=== PATIENT | female | born 1965 | race Hispanic/Latino ===

== ENCOUNTER 2017-01-27 12:40 | Inpatient (IN) | payer MEDICAID ==
[2017-01-27] MEDS ORDERED: Albuterol-Ipratrop 3 mg / 0.5 (3 ml) UD INH STA ×2 (12:50→16:46)
[2017-01-27] MEDS ORDERED: Albuterol-Ipratrop 3 mg / 0.5 (3 ml) UD ONE (12:59)
[2017-01-27 13:16] LABS: ABG ALLEN TEST YES; ARTERIAL BLOOD GAS HCO3 21.9 mmol/L (21-28); ARTERIAL BLOOD GAS PH 7.38 (7.35-7.45); ARTERIAL BLOOD GAS PO2 70 mm/Hg (80-100)
[2017-01-27 13:30] LABS: BASO # 0.1 K/uL (0.0-0.2); BASO % 0.6 % (0.0-2.0); EOS % 0.1 % (0.0-4.0); HEMATOCRIT 31.2 % (34.0-47.0); LYMPH # 1.7 K/uL (1.0-4.3); LYMPH % 10.3 % (20.0-40.0); MEAN CELL VOLUME 104.9 fl (81.0-99.0); MEAN CORPUSCULAR HEMOGLOBIN 35.3 pg (27.0-31.0); MEAN CORPUSCULAR HGB CONC 33.6 g/dL (33.0-37.0); MEAN PLATELET VOLUME 9.3 fl (7.2-11.7); MONO # 0.9 K/uL (0.0-0.8); MONO % 5.6 % (0.0-10.0); NEUT % 83.4 % (50.0-75.0); NRBC % 0.1 % (0.0-0.0); RED CELL DISTRIBUTION WIDTH 16.1 % (11.5-14.5); WHITE BLOOD COUNT 16.8 K/uL (4.8-10.8)
[2017-01-27 13:41] LABS: CALCIUM 8.3 mg/dL (8.4-10.2)
--- NOTE | 2017-01-27 13:41 | RAD ---
HISTORY: SOB COMPARISON: No prior. FINDINGS: LUNGS: Bilateral infiltrates are appreciated, greater within the right lung. PLEURA: No significant pleural effusion identified, no pneumothorax apparent. CARDIOVASCULAR: Heart is top normal in size. Aorta is normal in outline. Vasculature is limited by the infiltrates and may be mildly congested. . OSSEOUS STRUCTURES: No significant abnormalities. VISUALIZED UPPER ABDOMEN: Normal. OTHER FINDINGS: None. IMPRESSION: Nonspecific bilateral infiltrates greater in the right lung. Mild amount of congestion is not excluded.
[2017-01-27] MEDS ORDERED: Piperacillin/Tazobact 3.375 GM in Sodium Chloride 0.9% 100 ML IVPB STA (14:00)
[2017-01-27 14:01] LABS: ALB/GLOB RATIO 0.7 (1.0-2.1); TOTAL PROTEIN 8.6 G/DL (6.3-8.2)
[2017-01-27] MEDS ORDERED: Sodium Chloride 0.9% 1,000 ML IV STA (14:01)
[2017-01-27 14:02] LABS: BILIRUBIN,TOTAL 6.6 mg/dl (0.2-1.3)
[2017-01-27 14:03] LABS: TROPONIN I 0.04 ng/mL (0.00-0.120)
[2017-01-27] MEDS ORDERED: Vancomycin 1 g Inj ONE (14:36)
--- NOTE | 2017-01-27 14:47 | CT ---
PROCEDURE: CT Chest without contrast HISTORY: abnormal CXR r/o mass smoker COMPARISON: X-ray same day. TECHNIQUE: Contiguous axial images were obtained through the chest without intravenous contrast enhancement. Sagittal and coronal reconstructions were performed. Radiation dose (DLP): Chest mGy-cm. This CT exam was performed using one or more of the following dose reduction techniques: Automated exposure control, adjustment of the mA and/or kV according to patient size, and/or use of iterative reconstruction technique. FINDINGS: LUNGS: There is evidence of moderate infiltrates in the right lung. Infiltrates appear to be greatest in the proximal peribronchial region with there is also some associated density appreciated in the right hilar region. There appear to be a number of right paratracheal and precarinal lymph nodes. An element of right hilar lymphadenopathy is also not excluded without the benefit of intravenous contrast. Note appreciable left hilar adenopathy is clearly noted. Small amount of subcarinal adenopathy is not excluded. There is some other additional areas of reticular change and subtle patchy alveolar density in the upper lobe on the left. Mild linear subsegmental atelectasis is seen in the lingula. MEDIASTINUM: Unremarkable thoracic aorta. No aneurysm. Heart is not significantly enlarged. No pericardial effusion is seen. Pulmonary arteries are mildly prominent which may suggest an element of pulmonary artery hypertension. See above for adenopathy. PLEURA: Small pleural effusion is identified on the right. No left effusion is seen. No pneumothorax is noted. There is some mild areas of interlobular thickening noted without significant pleural thickening. BONES: There is mild chronic compression deformity seen in the mid thoracic spine region. Degenerative changes are noted elsewhere in the thoracic spine and upper lumbar spine. No definite lytic process is seen. UPPER ABDOMEN: There is evidence of mild low-density ascitic fluid overlying the liver. There also appears to be the suggestion of some recannulization of the umbilical venous structures which may suggest some portal hypertension. No focal liver mass is clearly seen. Adrenal glands are normal in size. Visualized spleen is normal in size. Liver is enlarged. OTHER FINDINGS: Visualized esophagus is unremarkable. Thyroid gland is noted to contain a small subcentimeter low-density probable nodule on the right. No further imaging workup would be suggested. IMPRESSION: Multi focal right lung infiltrates greatest in the central perihilar region but also noted peripherally and a few other smaller areas in the subpleural region. Evaluation of the mediastinum is limited due the lack of intravenous contrast. There may be an associated area of right hilar adenopathy. Findings may suggest multi focal infectious infiltrate or other inflammatory process, however malignancy cannot be excluded on this exam. Close clinical surveillance and follow-up are suggested. Smaller patchy infiltrates in the left lung.
--- NOTE | 2017-01-27 15:07 | ED PDOC ---
HPI: SOB/CHF/COPD Time Seen by Provider: 01/27/17 12:45 Chief Complaint (Nursing): Shortness Of Breath Chief Complaint (Provider): respiratory distress History Per: Patient, EMS History/Exam Limitations: clinical condition Onset/Duration Of Symptoms: Days (3), Gradual Current Symptoms Are (Timing): Still Present Initiating Event: Upper Respiratory Illness Quality: Tightness Exacerbating Factor(s): Exertion, Coughing Current Respiratory Medications: See Home Med List Severity: Severe Associated Symptoms: Chest Pain, Productive Cough, Heart Racing, Leg/Calf Pain, Ankle/Leg Swelling, Dizziness, Anxiety Similar Symptoms Previously: ++ Additional Complaint(s): 51yo female hc COPD arrives via ALS in respiratory distress, c/o cough, wheeze and sweeling to face/neck/legs ongoing and worsening for last 2-3 days. History limited due to respiratory distress. Patient required immediate bedside attention. Also admits to frequent alcohol intake for which last drink was yesterday. C/o anxiety and tremors. Past Medical History Reviewed: Historical Data, Nursing Documentation, Vital Signs Vital Signs: Last Vital Signs Temp 98.1 F 01/27/17 12:43 Pulse 120 H 01/27/17 13:34 Resp 22 01/27/17 13:41 BP 109/83 01/27/17 13:34 Pulse Ox 100 01/27/17 15:14 - Medical History PMH: Asthma, Bronchitis, COPD Other PMH: denies taking medications other than nebulizers at home - Surgical History Surgical History: No Surg Hx - Family History Family History: States: Unknown Family Hx - Social History Current smoker - smoking cessation education provided: Yes (occassional, recently attempted to quit) Alcohol: > 2 Drinks/Day - Home Medications Home Medications: Ambulatory Orders Medication Instructions Recorded Albuterol 0.083% [Albuterol 3 ml IH BID 01/27/17 Sulfate 3 Ml] Albuterol HFA [Ventolin HFA 90 1 puff IH BID 01/27/17 mcg/actuation (8 g)] - Allergies Allergies/Adverse Reactions: Allergies Allergy/AdvReac Type Severity Reaction Status Date / Time No Known Allergies Allergy Verified 01/27/17 12:43 Review of Systems ROS Statement: Except As Marked, All Systems Reviewed And Found Negative Constitutional: Positive for: Weakness, Malaise. Negative for: Fever, Chills Eyes: Negative for: Eyelid Inflammation ENT: Negative for: Throat Pain Cardiovascular: Positive for: Chest Pain, Palpitations, Edema Respiratory: Positive for: Cough, Shortness of Breath, SOB with Exertion, Pleuritic Pain, Wheezing. Negative for: Hemoptysis Gastrointestinal: Negative for: Abdominal Pain Genitourinary Female: Negative for: Dysuria Musculoskeletal: Positive for: Back Pain. Negative for: Neck Pain, Arm Pain, Leg Pain Skin: Negative for: Rash, Lesions, Jaundice Neurological: Positive for: Dizziness. Negative for: Weakness, Numbness, Confusion Psych: Positive for: Anxiety. Negative for: Depression Physical Exam - Reviewed Nursing Documentation Reviewed: Yes Vital Signs Reviewed: Yes - Physical Exam Appears: Positive for: In Acute Distress (+ respiratory distress) Head Exam: Positive for: ATRAUMATIC, NORMAL INSPECTION, NORMOCEPHALIC Skin: Positive for: Normal Color, Warm. Negative for: Pallor, Rash, Mottled Eye Exam: Positive for: EOMI, Normal appearance, PERRL ENT: Positive for: Other (facial edema) Neck: Positive for: Normal, Painless ROM Cardiovascular/Chest: Positive for: Edema, Tachycardia Respiratory: Positive for: Decreased Breath Sounds, Wheezing, Respiratory Distress Pulses-Radial (L): 3+/4+ Pulses-Radial (R): 3+/4+ Gastrointestinal/Abdominal: Positive for: Bowel Sounds, Soft. Negative for: Tenderness, Guarding Back: Positive for: Normal Inspection Extremity: Positive for: Pedal Edema, Swelling Neurologic/Psych: Positive for: Alert, Oriented, Other (+tremors/ anxious). Negative for: Motor/Sensory Deficits - Laboratory Results Result Diagrams: 01/27/17 13:21 01/27/17 13:21 - ECG O2 Sat by Pulse Oximetry: 100 Medical Decision Making Medical Decision Making: patient required immediate bedside attention Vapotherm initiated for resp support ABG/ EKG/ CXR/ labs ordered labs reviewed, revealing elevated lactate, WBC, moderate anemia, renal insufficiency, elevated Alk Phos/LFTs, normal trop and BNP CXR reveals b/l infiltrates Renal function marginal to allow for IV contrast, obtain CT chest without contrast eval for malignancy Meets severe sepsis criteria, blood cx and Abx initiated, IVF, repeat lactate ordered 3hr. Accession No. : [id number] Patient Name / ID : SONIA BUSTILLO / [id number] Exam Date : 01/27/2017 14:13:50 ( Approved ) Study Comment : Sex / Age : F / 51Y Creator : Jeevan Muniz MD Dictator : Jeevan Muniz MD Chicken Dresser : Quality Control Assessor : Jeevan Muniz MD Approver2 : Report Date : 01/27/2017 14:46:13 My Comment : PROCEDURE: CT Chest without contrast HISTORY: abnormal CXR r/o mass smoker COMPARISON: X-ray same day. TECHNIQUE: Contiguous axial images were obtained through the chest without intravenous contrast enhancement. Sagittal and coronal reconstructions were performed. Radiation dose (DLP): Chest mGy-cm. This CT exam was performed using one or more of the following dose reduction techniques: Automated exposure control, adjustment of the mA and/or kV according to patient size, and/or use of iterative reconstruction technique. FINDINGS: LUNGS: There is evidence of moderate infiltrates in the right lung. Infiltrates appear to be greatest in the proximal peribronchial region with there is also some associated density appreciated in the right hilar region. There appear to be a number of right paratracheal and precarinal lymph nodes. An element of right hilar lymphadenopathy is also not excluded without the benefit of intravenous contrast. Note appreciable left hilar adenopathy is clearly noted. Small amount of subcarinal adenopathy is not excluded. There is some other additional areas of reticular change and subtle patchy alveolar density in the upper lobe on the left. Mild linear subsegmental atelectasis is seen in the lingula. MEDIASTINUM: Unremarkable thoracic aorta. No aneurysm. Heart is not significantly enlarged. No pericardial effusion is seen. Pulmonary arteries are mildly prominent which may suggest an element of pulmonary artery hypertension. See above for adenopathy. PLEURA: Small pleural effusion is identified on the right. No left effusion is seen. No pneumothorax is noted. There is some mild areas of interlobular thickening noted without significant pleural thickening. BONES: There is mild chronic compression deformity seen in the mid thoracic spine region. Degenerative changes are noted elsewhere in the thoracic spine and upper lumbar spine. No definite lytic process is seen. UPPER ABDOMEN: There is evidence of mild low-density ascitic fluid overlying the liver. There also appears to be the suggestion of some recannulization of the umbilical venous structures which may suggest some portal hypertension. No focal liver mass is clearly seen. Adrenal glands are normal in size. Visualized spleen is normal in size. Liver is enlarged. OTHER FINDINGS: Visualized esophagus is unremarkable. Thyroid gland is noted to contain a small subcentimeter low-density probable nodule on the right. No further imaging workup would be suggested. IMPRESSION: Multi focal right lung infiltrates greatest in the central perihilar region but also noted peripherally and a few other smaller areas in the subpleural region. Evaluation of the mediastinum is limited due the lack of intravenous contrast. There may be an associated area of right hilar adenopathy. Findings may suggest multi focal infectious infiltrate or other inflammatory process, however malignancy cannot be excluded on this exam. Close clinical surveillance and follow-up are suggested. Smaller patchy infiltrates in the left lung. Admit Dr Arora, (PMD near [facility] not at [facility]) Disposition - Clinical Impression Clinical Impression: Bilateral pneumonia, Severe sepsis, Respiratory distress, COPD exacerbation - Patient ED Disposition Is Patient to be Admitted: Yes Counseled Patient/Family Regarding: Studies Performed - Disposition Disposition Time: 14:40 Condition: GUARDED - Pt Status Changed To: Hospital Disposition Of: Inpatient - Admit Certification Admit to Inpatient:: After my assessment, the patient will require hospitalization for at least two midnights. This is because of the severity of symptoms shown, intensity of services needed, and/or the medical risk in this patient being treated as an outpatient. - POA Present On Arrival: Poor Glycemic Control
[2017-01-27 15:45] LABS: POTASSIUM 5.8 MMOL/L (3.6-5.0)
[2017-01-27 15:58] LABS: ABG ALLEN TEST YES; ARTERIAL BLOOD GAS HCO3 20.1 mmol/L (21-28); ARTERIAL BLOOD GAS PH 7.29 (7.35-7.45); ARTERIAL BLOOD GAS PO2 92 mm/Hg (80-100)
--- NOTE | 2017-01-27 16:13 | CP.PCM.HP ---
History of Present Illness - History of Present Illness History of Present Illness: Chief Complaint : facial and leg swelling ,SOB and inability to walk 51 y/o female with COPD , fatty liver, Chronic ETOH abuse ( daily 8 cups of 8 ounce vodka ) , smoker , chronic lower back pain brought to ER for evaluation by EMS for facial and lower extremity swelling , SOB and lower back pain. As per patient she has some baseline SOB with ambulation and has chronic lower back pain . Yesterday she was in her USOH , having some lower back pain for which she took some Motrin and Advil PM. She admits to drinking yesterday as usual (heavily), denies any other drug use or consumption of any sea food . This morning when she woke up she noticed her face and eyes to be swollen and her lower extremities were swollen as well. She could not get out of bed and was having significant back pain . She admits to having increased SOB with cough last couple of days, denies any fever m chills, nausea, vomiting, chest pain . No sputum production. Denies any sick contact or trauma.She was seen at [facility] 1 week ago for SOB. EMS was called and she was brought to ER where she was found to be in respiratory distress,with dyspnea RR 35 O2sat 94 %, slightly hypotensive BP 96/ 65 tachycardic HR 122.She was given 2 Duonebs in the field, 125 mg IV solumedrol in ER , started on IVF and placed on High Flow 20 LPM FIO2 60 % Her ABG showed PO2 70 PCO2 35 pH 7.38 CXR showed bilateral infiltrates worse on the right WBC found to be elevated 16.8 Hgb 10 BUN/Cr 20/1.4 rigoberto 6.6 ASt / ALT 150/26 lactic acid 2.6 ETOH levels 73 Physical exam significant for tremors , increased work of breathing , periorbital, facial and lower extremity edema, her breath smells alcohol. Allergies;NKDA PMH; COPD , fatty liver, Chronic ETOH abuse ( daily 8 cups of 8 ounce vodka ) , smoker , chronic lower back pain , obese Medications; duonebs, prednisone, took Motrin and Advil PM last night Family history ; Mother had breast and lung cancer, father had throat cancer and thyroid problems Surgery ; none Social history ; lives in [place] with sister , single, has 1 child , heavy drinker , drinks vodka daily 8 cups of 8 ounce for more than 40 years, has been smoking since 13 years of age 1 1/2 ppd quit 1 year ago but still smokes one or 2 cigarets sometimes ( last cigarette was 2 days ago) Does not work is on disability, walks with no assist devices , denies drug abuse ( used cocaine more than 30 years ago ) ROS ; 14 point revie wof system negative except above Code status ; Full code Surrogate decision maker : Sister Kat tel [phone] PMD ;Sidney Leonora Present on Admission - Present on Admission Any Indicators Present on Admission: No Review of Systems - Review of Systems All systems: reviewed and no additional remarkable complaints except Past Patient History - Infectious Disease Hx of Infectious Diseases: None - Tetanus Immunizations Tetanus Immunization: Unknown - Past Medical History & Family History Past Medical History?: Yes - Past Social History Smoking Status: Current Some Days Smoker Chewing Tobacco Use: No Cigar Use: No Alcohol: > 2 Drinks/Day Home Situation {Lives}: With Family Domestic Violence: Negative - CARDIAC Hx Cardiac Disorders: No - PULMONARY Hx Asthma: Yes Hx Bronchitis: Yes Hx Chronic Obstructive Pulmonary Disease (COPD): Yes - MUSCULOSKELETAL/RHEUMATOLOGICAL Hx Back Pain: Yes (lower back pain ) - GASTROINTESTINAL Hx Fatty Liver Disease: Yes - PSYCHIATRIC Hx Substance Use: No - SURGICAL HISTORY Hx Surgeries: No - ANESTHESIA Hx Anesthesia: No Meds Allergies/Adverse Reactions: Allergies Allergy/AdvReac Type Severity Reaction Status Date / Time No Known Allergies Allergy Verified 01/27/17 12:43 Physical Exam - Constitutional Appears: Older Than Stated Age Additional comments: Obese lady sitting in bed on high flow with some respiratory distress, noticeable tremors to upper extremities, - Head Exam Additional comments: facial and periorbital edema facial flushing - Eye Exam Eye Exam: EOMI, Periorbital swelling, PERRL Pupil Exam: NORMAL ACCOMODATION Additional comments: left sub conjunctiva bleeding - ENT Exam ENT Exam: Mucous Membranes Dry, Normal Oropharynx - Neck Exam Neck exam: Positive for: Full Rom Additional comments: very short neck - Respiratory Exam Respiratory Exam: Accessory Muscle Use, Prolonged Expiratory Phase, Rhonchi, Respiratory Distress. absent: Wheezes - Cardiovascular Exam Cardiovascular Exam: Tachycardia, +S1, +S2. absent: JVD - GI/Abdominal Exam GI & Abdominal Exam: Normal Bowel Sounds, Soft. absent: Distended, Guarding, Rebound, Tenderness - Rectal Exam Rectal Exam: Deferred - Extremities Exam Extremities exam: Positive for: pedal edema (2+ bilaterallly, RLE richard erythema ), pedal pulses present. Negative for: calf tenderness, tenderness - Back Exam Back exam: NORMAL INSPECTION. absent: paraspinal tenderness Additional comments: bruises noted to right upper back left lower back under left upper arm - Neurological Exam Neurological exam: Alert, CN II-XII Intact, Oriented x3, Reflexes Normal - Psychiatric Exam Psychiatric exam: Normal Affect, Normal Mood - Skin Skin Exam: Dry, Pallor, Warm Results - Vital Signs Recent Vital Signs: Last Vital Signs Temp 98.1 F 01/27/17 12:43 Pulse 120 H 01/27/17 13:34 Resp 19 01/27/17 15:45 BP 109/83 01/27/17 13:34 Pulse Ox 100 01/27/17 15:14 - Labs Result Diagrams: 01/27/17 13:21 01/27/17 13:21 Labs: Laboratory Results - last 24 hr 01/27/17 01/27/17 01/27/17 13:04 13:21 13:21 WBC 16.8 H RBC 2.98 L Hgb 10.5 L Hct 31.2 L MCV 104.9 H MCH 35.3 H MCHC 33.6 RDW 16.1 H Plt Count 207 MPV 9.3 Neut % (Auto) 83.4 H Lymph % (Auto) 10.3 L Love % (Auto) 5.6 Eos % (Auto) 0.1 Baso % (Auto) 0.6 Neut # 14.0 H Lymph # 1.7 Love # 0.9 H Eos # 0.0 Baso # 0.1 pCO2 35 pO2 70 L HCO3 21.9 ABG pH 7.38 ABG Total CO2 21.8 L ABG O2 Saturation 99.0 H ABG Base Excess -3.8 L Dick Test Yes ABG Potassium 4.7 A-a O2 Difference 86.0 Sodium 133.0 138 Chloride 104.0 104 Glucose 120 H Lactate 2.6 H FiO2 28.0 Blood Gas Comments Crit Value Called To Crit Value Called By Crit Value Read Back Blood Gas Notified Time Potassium 5.8 H Carbon Dioxide 20 L Anion Gap 20 BUN 20 H Creatinine 1.4 H Est GFR ( Amer) 48 Est GFR (Non-Af Amer) 40 Random Glucose 111 H Calcium 8.3 L Total Bilirubin 6.6 H AST 150 H ALT 26 Alkaline Phosphatase 253 H Troponin I 0.0400 NT-Pro-B Natriuret Pep 806 Total Protein 8.6 H Albumin 3.6 Globulin 4.9 H Albumin/Globulin Ratio 0.7 L Arterial Blood Potassium 4.7 Alcohol, Quantitative Influenza Typ A,B (EIA) 01/27/17 01/27/17 01/27/17 13:21 14:54 15:45 WBC RBC Hgb Hct MCV MCH MCHC RDW Plt Count MPV Neut % (Auto) Lymph % (Auto) Love % (Auto) Eos % (Auto) Baso % (Auto) Neut # Lymph # Love # Eos # Baso # pCO2 42 pO2 92 HCO3 20.1 L ABG pH 7.29 L ABG Total CO2 21.5 L ABG O2 Saturation 98.5 H ABG Base Excess -6.1 L Dick Test Yes ABG Potassium 4.5 A-a O2 Difference 283.0 Sodium 137.0 Chloride 106.0 Glucose 126 H Lactate 2.5 H FiO2 60.0 Blood Gas Comments Lactate 2.5 Crit Value Called To keena Jackson Crit Value Called By 203 Crit Value Read Back Y Blood Gas Notified Time 1557 Potassium Carbon Dioxide Anion Gap BUN Creatinine Est GFR ( Amer) Est GFR (Non-Af Amer) Random Glucose Calcium Total Bilirubin AST ALT Alkaline Phosphatase Troponin I NT-Pro-B Natriuret Pep Total Protein Albumin Globulin Albumin/Globulin Ratio Arterial Blood Potassium 4.5 Alcohol, Quantitative 73 H Influenza Typ A,B (EIA) Negative for flu a/b - Imaging and Cardiology Chest x-ray Additional comment: bilateral multiple infiltrates more on the right CT scan - chest Additional comment: Multi focal right lung infiltrates greatest in the central perihilar region but also noted peripherally and a few other smaller areas in the subpleural region. Evaluation of the mediastinum is limited due the lack of intravenous contrast. There may be an associated area of right hilar adenopathy. Findings may suggest multi focal infectious infiltrate or other inflammatory process, however malignancy cannot be excluded on this exam. Close clinical surveillance and follow-up are suggested. Smaller patchy infiltrates in the left lung. Assessment & Plan - Assessment and Plan (Free Text) Assessment: 51 y/o female with COPD , fatty liver, Chronic ETOH abuse ( daily 8 cups of 8 ounce vodka ) , smoker , chronic lower back pain brought to ER for evaluation by EMS for facial and lower extremity swelling , SOB and lower back pain. As per patient she has some baseline SOB with ambulation and has chronic lower back pain . Yesterday she was in her USOH , having some lower back pain for which she took some Motrin and Advil PM. She admits to drinking yesterday as usual (heavily), denies any other drug use or consumption of any sea food . This morning when she woke up she noticed her face and eyes to be swollen and her lower extremities were swollen as well. She could not get out of bed and was having significant back pain . She admits to having increased SOB with cough last couple of days, denies any fever ,chills, nausea, vomiting, chest pain . No sputum production. Denies any sick contact or trauma.She was seen at [facility] 1 week ago for SOB and was given steroids and duonebs. EMS was called and she was brought to ER where she was found to be in respiratory distress,with dyspnea RR 35 O2sat 94 %, slightly hypotensive BP 96/ 65 tachycardic HR 122.She was given 2 Duonebs in the field, 125 mg IV solumedrol in ER , started on IVF and placed on High Flow 20 LPM FIO2 60 % Her ABG showed PO2 70 PCO2 35 pH 7.38 CXR showed bilateral infiltrates worse on the right WBC found to be elevated 16.8 Hgb 10 BUN/Cr 20/1.4 rigoberto 6.6 ASt / ALT 150/26 lactic acid 2.6 ETOH levels 73 Physical exam significant for tremors , increased work of breathing , periorbital, facial and lower extremity edema, her breath smells alcohol 1. Severe Sepsis Most likely secondary to multifocal pneumonia patient was hypotensive,tachycardic,hypoxemic with WBC 16.8 and CXR showing bilateral infiltrates, lactate 2.6 Send blood , urine, sputum cultures placed on High flow O2 20 LPM FIO2 60 % Started IVF Started Vanco, Zosyn and Zithromax ID consult Repeat lactic acid 2.Acute hypoxemic respiratory failure Treated with Duoneb x2 treatment and Solumedrol IV placed on High Flow O2 vi aNC 20 LPM FIO2 60 % CT chest showed multifocal infiltrates . Unable to perform CTA due to renal function Will hydrate patient and if renal function improves with perform CTA if respiratory status shows no improvement Pulmonary consulted Continue IV antibiotics and Duonebs Will admit to ICU for close monitoring Discussed possibility of intubation with patient and sister if she can not tolerate high flow and they agree 3. Multifocal Pneumonia ID and pulmonary consulted Started Vanco, Zosuyn and Zithromax Follow up cultures patient is a long time smoker so will need to follow up resolution of infiltrates to rule out any underlying malignancy 4. Facial and lower extremity edema unclear etiology of facial edema -- rule out angioedema vs myxedema Check TSH stat Given Solumedrol 125 mg IV Continue IVF , Solumedrol 40 mg IV Q8, PPI Started benadryl 5. ETOH abuse / Impending DT-s patient with tremors and tachycardic ETOH levels 73 ( last drink yesterday ) Start Thiamine, Folic acid and MVI on IVF stat Continue hydration Start Ativan PRN , Librium 50 mg PO q6 hours Seizure precautions/ withdrawal precautions 6. SUNDAR BUN/ Cr 20/1.4 no prior records and unknown renal function Start IVF repeat BMP in AM 7.COPD Duonebs , high flow pulmonary consulted counselled on smoking 8. Alcoholic liver Bill 6.[address] chest showed hepatomegaly , fatty infiltration , some ascitic fluid and umbilical vein recannulization significant for portal hypertension Continue monitoring check ammonia send direct bilirubin 9. Chronic Lower back pain Ct chest also showing mild chronic compression fracture in mid thoracic spine Pain management PT eval 10.Anemia unclear etiology send anemia work up 11. Hyperkalemia Blood sample hymolyzed repeat BMP 12. Smoker will offer nicotine patch 13. DVT prophylaxis GI prophylaxis Lovenox ( renal dose ) , SCD PPI
[2017-01-27] MEDS ORDERED: Sodium Chloride 0.9% 1,000 ML IV SCH (16:30)
[2017-01-27] MEDS ORDERED: Albuterol 0.083% Inhal Sol (2.5 mg/3 mL) UD IH SCH (16:30)
[2017-01-27] MEDS ORDERED: MULTIVITAMIN IV SCH ×3 (16:43→17:15)
[2017-01-27] MEDS ORDERED: SODIUM CHLORIDE IV SCH (16:43)
[2017-01-27] MEDS ORDERED: Azithromycin 500 MG in Sodium Chloride 0.9% 250 ML IVPB STA (16:43)
[2017-01-27] MEDS ORDERED: THIAMINE IV SCH ×3 (16:43→17:15)
[2017-01-27] MEDS ORDERED: Calcium Gluconate 4.65 mEq/10 ml Inj IV ONE (16:46)
[2017-01-27] MEDS ORDERED: Dextrose 50% SYRINGE Inj (50 ml) IVP ONE (16:46)
[2017-01-27] MEDS ORDERED: Sod Polystyrene Sulf 15 gm/60 ml Susp PO ONE (16:46)
--- NOTE | 2017-01-27 16:58 | CP.CCUPN ---
CCU Subjective - Physician Review Subjective (Free Text): ICU admission requested by ER MD; patient is a fair historian- 51F admitted for SOB and wheezing x 1 day, c/o facial edema and swollen legs, denies any recent new medications, nor atypical food ingestion, nor h/o of unusual allergic reactions, recent travel, nor any exposure to sick contacts. Legs were much swollen over the past several days to one week. Facial edema now involving bilateral periorbital areas. Denies any CP, fevers, chills , sweats; has orthopnea, +BURNETT and intermittent cough with whitish phlegm. Hypotensive, tachycardic and tachypneic on presentation; placed on HFNC at 60% and 20 LPM with 100% SPo2. She states she was recently hospitalized at [facility], but unclear as to when she was discharged or he nature of the hospitalization. She is currently exhibiting increase in psychomotor activity involving the arms. Other vitals and I/O's reviewed. PMH: past smoker and daily Vodka drinker. ALLERGIES; NKDA Home meds: albuterol inh ROS: No other pertinent negs or positives on + system review. PMSFH: All Nursing and physician documentation reviewed to date; no new pertinent info noted relevant to current medical problems. CXR/ CT Chest: bilateral, but more right sided centrally located dense infiltrates (my interp). IMPRESSION / MAJOR PROBLEMS NOW: 1. Acute Hypoxemic Resp Failure 2. Bilateral Pneumonia 3. Azotemia / Dehydration, with Hyperkalemia; r/o CKD 4. Chronic ETOH Intoxication with early Delirium Tremans, and AKA. 5. Anemia, with mixed Indices; unclear acute vs. chronic disease type 6. Hyperbilirubinemia with AST and ALKPhos elevation PLAN: 1. ICU observation. Does not need immediate or urgent airway control, nor assisted breathing or ventilatory support. Continue HFNC for now. 2. If Librium is started, watch for excessive sedation and resp status. 3. Give empiric steroids, Duoneb inh therapy; H1 and H2 antagonists IV for now. 4. Empiric abx coverage, and atypical organism coverage. ?? Chronic Aspiration pneumonia?? 5. BNP normal on admission, but would get ECHO to r/o ETOH-Cardiomyopathy, check TFTs. 6. Check Coags. Check GGT, consider Liver/GB/Pancreas US. 7. Thiamine / Folate supplements, hydrate with NSS. Repeat serial Lactates, unclear if elevated due to Sepsis vs AKA. 8. Consider Venous Doppler of Legs, r/o DVT. 9. Obtain old medical records from previous hospitalization for medical database information. CCU Objective - Vital Signs / Intake & Output Vital Signs (Last 4 hours): Vital Signs Temp Pulse Resp BP Pulse Ox 01/27/17 16:32 98.3 F 108 H 16 132/78 01/27/17 16:02 98.3 F 108 H 16 132/78 98 01/27/17 15:45 19 01/27/17 15:14 100 01/27/17 13:41 22 01/27/17 13:34 120 H 26 H 109/83 100 01/27/17 13:23 21 100 Intake and Output (Last 8hrs): Intake & Output 01/27/17 01/27/17 01/27/17 06:59 14:59 22:59 Weight 211 lb - Physical Exam Head: Positive for: Atraumatic, Normocephalic Pupils: Positive for: PERRL Extroacular Muscles: Positive for: EOMI. Negative for: Gaze Palsy Conjunctiva: Positive for: Icteric Mouth: Positive for: Moist Mucous Membranes Pharnyx: Positive for: Normal Respiratory/Chest: Positive for: Wheezes, Decreased Breath Sounds. Negative for : Accessory Muscle Use Cardiovascular: Positive for: Regular Rate and Rhythm, Tachycardic. Negative for: Murmurs, Rub Abdomen: Positive for: Normal Bowel Sounds, Other (obese). Negative for: Tenderness, Distention, Mass/Organomegaly Lower Extremity: Positive for: Edema, NORMAL PULSES, Other (mild skin erythema and redness with increased warmth bilaterally). Negative for: CALF TENDERNESS, Cyanosis Neurological: Positive for: GCS=15, Motor Func Grossly Intact, Normal Sensory Function Skin: Positive for: Warm, Dry, Other (3 ecchymotic areas along Right lateral back area). Negative for: Rashes Psychiatric: Positive for: Alert, Oriented x 3, Agitated - Medications Active Medications: Active Medications Generic Name Dose Route Start Last Admin Trade Name Freq PRN Reason Stop Dose Admin Acetaminophen 650 mg 01/27/17 16:27 Tylenol 325mg Tab PO Q6H PRN Pain, Mild (1-3) Acetaminophen 650 mg 11/23/17 16:27 Tylenol 325mg Tab PO Q6H PRN Fever >100.4 F Albuterol Sulfate 2.5 mg 01/27/17 16:30 Albuterol 0.083% Inhal Jackie (2.5 Mg/3 Ml) Ud IH RQ6 [facility] Chlordiazepoxide 50 mg 01/27/17 22:00 Librium PO Q6 [facility] Diphenhydramine HCl 50 mg 01/27/17 22:00 Benadryl IVP 01/29/17 22:01 Q6 [facility] Docusate Sodium 100 mg 01/27/17 16:27 Colace PO BID PRN Constipation Enoxaparin Sodium 30 mg 01/28/17 09:00 Lovenox SC DAILY [facility] Protocol Famotidine 20 mg 01/27/17 21:00 Pepcid IVP Q12 [facility] Folic Acid 1 mg 01/28/17 09:00 Folic Acid PO DAILY [facility] Vancomycin HCl 1 gm/ Sodium 250 mls @ 250 mls/hr 01/27/17 14:15 01/27/17 14: 46 Chloride IVPB 250 mls/hr ONCE [facility] Administration Protocol Azithromycin 500 mg/ Sodium 250 mls @ 250 mls/hr 01/27/17 16:43 Chloride IVPB 01/27/17 17:42 STAT STA Protocol Azithromycin 500 mg/ Sodium 250 mls @ 250 mls/hr 01/28/17 09:00 Chloride IVPB DAILY [facility] Protocol Piperacillin Sod/Tazobactam 100 mls @ 100 mls/hr 01/27/17 17:00 Sod 3.375 gm/ Sodium Chloride IVPB Q8 [facility] Protocol Vancomycin HCl 1 gm/ Sodium 250 mls @ 166.667 mls/hr 01/28/17 09:00 Chloride IVPB DAILY [facility] Protocol Thiamine HCl 100 mg/ 1,006.2 mls @ 100.001 mls/hr 01/27/17 17:00 Multivitamins/Vitamin C 5 ml/ IV Folic Acid 1 mg/ Sodium .Q10H4M [facility] Chloride Insulin Human Regular 10 units 01/27/17 17:00 Humulin R IV ACB [facility] Lorazepam 1 mg 01/27/17 17:00 Ativan PO TID [facility] Methylprednisolone 40 mg 01/27/17 16:45 Solu-Medrol IVP Q8H [facility] Multivitamins/Minerals 1 tab 01/28/17 09:00 Therapeutic-M Tab PO DAILY [facility] Ondansetron HCl 4 mg 01/27/17 16:27 Zofran Inj IVP Q6H PRN Nausea/Vomiting Thiamine HCl 100 mg 01/28/17 09:00 Vitamin B1 Tab PO DAILY [facility] - Patient Studies Lab Studies: Lab Studies 01/27/17 01/27/17 01/27/17 Range/Units 15:45 14:54 13:21 WBC (4.8-10.8) K/uL RBC (3.80-5.20) Mil/uL Hgb (12.0-16.0) g/dL Hct (34.0-47.0) % MCV (81.0-99.0) fl MCH (27.0-31.0) pg MCHC (33.0-37.0) g/dL RDW (11.5-14.5) % Plt Count (130-400) K/uL MPV (7.2-11.7) fl Neut % (Auto) (50.0-75.0) % Lymph % (Auto) (20.0-40.0) % Kleberg % (Auto) (0.0-10.0) % Eos % (Auto) (0.0-4.0) % Baso % (Auto) (0.0-2.0) % Neut # (1.8-7.0) K/uL Lymph # (1.0-4.3) K/uL Kleberg # (0.0-0.8) K/uL Eos # (0.0-0.7) K/uL Baso # (0.0-0.2) K/uL pCO2 42 (35-45) mm/Hg pO2 92 (80-100) mm/Hg HCO3 20.1 L (21-28) mmol/L ABG pH 7.29 L (7.35-7.45) ABG Total CO2 21.5 L (22-28) mmol/L ABG O2 Saturation 98.5 H (95-98) % ABG Base Excess -6.1 L (-2.0-3.0) mmol/L Dick Test Yes ABG Potassium 4.5 (3.6-5.2) mmol/L A-a O2 Difference 283.0 mm/Hg Sodium 137.0 (132-148) mmol/L Chloride 106.0 (98-107) mmol/L Glucose 126 H (65-105) mg/dL Lactate 2.5 H (0.7-2.1) mmol/L FiO2 60.0 % Blood Gas Comments Lactate 2.5 Crit Value Called To keena Jackson Crit Value Called By 203 Crit Value Read Back Y Blood Gas Notified Time 1557 Potassium (3.6-5.0) MMOL/L Carbon Dioxide (22-30) mmol/L Anion Gap (10-20) BUN (7-17) mg/dl Creatinine (0.7-1.2) mg/dl Est GFR ( Amer) Est GFR (Non-Af Amer) Random Glucose (65-105) mg/dL Calcium (8.4-10.2) mg/dL Total Bilirubin (0.2-1.3) mg/dl AST (14-36) U/L ALT (9-52) U/L Alkaline Phosphatase (38-126) U/L Troponin I (0.00-0.120) ng/mL NT-Pro-B Natriuret Pep (0-900) pg/ml Total Protein (6.3-8.2) G/DL Albumin (3.5-5.0) g/dL Globulin (2.2-3.9) gm/dL Albumin/Globulin Ratio (1.0-2.1) Arterial Blood Potassium 4.5 (3.6-5.2) mmol/L Alcohol, Quantitative 73 H (0-10) mg/dl Influenza Typ A,B (EIA) Negative for flu a/b (NEGATIVE) 01/27/17 01/27/17 01/27/17 Range/Units 13:21 13:21 13:04 WBC 16.8 H (4.8-10.8) K/uL RBC 2.98 L (3.80-5.20) Mil/uL Hgb 10.5 L (12.0-16.0) g/dL Hct 31.2 L (34.0-47.0) % MCV 104.9 H (81.0-99.0) fl MCH 35.3 H (27.0-31.0) pg MCHC 33.6 (33.0-37.0) g/dL RDW 16.1 H (11.5-14.5) % Plt Count 207 (130-400) K/uL MPV 9.3 (7.2-11.7) fl Neut % (Auto) 83.4 H (50.0-75.0) % Lymph % (Auto) 10.3 L (20.0-40.0) % Kleberg % (Auto) 5.6 (0.0-10.0) % Eos % (Auto) 0.1 (0.0-4.0) % Baso % (Auto) 0.6 (0.0-2.0) % Neut # 14.0 H (1.8-7.0) K/uL Lymph # 1.7 (1.0-4.3) K/uL Kleberg # 0.9 H (0.0-0.8) K/uL Eos # 0.0 (0.0-0.7) K/uL Baso # 0.1 (0.0-0.2) K/uL pCO2 35 (35-45) mm/Hg pO2 70 L (80-100) mm/Hg HCO3 21.9 (21-28) mmol/L ABG pH 7.38 (7.35-7.45) ABG Total CO2 21.8 L (22-28) mmol/L ABG O2 Saturation 99.0 H (95-98) % ABG Base Excess -3.8 L (-2.0-3.0) mmol/L Dick Test Yes ABG Potassium 4.7 (3.6-5.2) mmol/L A-a O2 Difference 86.0 mm/Hg Sodium 138 133.0 (132-148) mmol/L Chloride 104 104.0 (98-107) mmol/L Glucose 120 H (65-105) mg/dL Lactate 2.6 H (0.7-2.1) mmol/L FiO2 28.0 % Blood Gas Comments Crit Value Called To Crit Value Called By Crit Value Read Back Blood Gas Notified Time Potassium 5.8 H (3.6-5.0) MMOL/L Carbon Dioxide 20 L (22-30) mmol/L Anion Gap 20 (10-20) BUN 20 H (7-17) mg/dl Creatinine 1.4 H (0.7-1.2) mg/dl Est GFR ( Amer) 48 Est GFR (Non-Af Amer) 40 Random Glucose 111 H (65-105) mg/dL Calcium 8.3 L (8.4-10.2) mg/dL Total Bilirubin 6.6 H (0.2-1.3) mg/dl AST 150 H (14-36) U/L ALT 26 (9-52) U/L Alkaline Phosphatase 253 H (38-126) U/L Troponin I 0.0400 (0.00-0.120) ng/mL NT-Pro-B Natriuret Pep 806 (0-900) pg/ml Total Protein 8.6 H (6.3-8.2) G/DL Albumin 3.6 (3.5-5.0) g/dL Globulin 4.9 H (2.2-3.9) gm/dL Albumin/Globulin Ratio 0.7 L (1.0-2.1) Arterial Blood Potassium 4.7 (3.6-5.2) mmol/L Alcohol, Quantitative (0-10) mg/dl Influenza Typ A,B (EIA) (NEGATIVE) Laboratory Results - last 24 hr 01/27/17 01/27/17 01/27/17 13:04 13:21 13:21 WBC 16.8 H RBC 2.98 L Hgb 10.5 L Hct 31.2 L MCV 104.9 H MCH 35.3 H MCHC 33.6 RDW 16.1 H Plt Count 207 MPV 9.3 Neut % (Auto) 83.4 H Lymph % (Auto) 10.3 L Kleberg % (Auto) 5.6 Eos % (Auto) 0.1 Baso % (Auto) 0.6 Neut # 14.0 H Lymph # 1.7 Kleberg # 0.9 H Eos # 0.0 Baso # 0.1 pCO2 35 pO2 70 L HCO3 21.9 ABG pH 7.38 ABG Total CO2 21.8 L ABG O2 Saturation 99.0 H ABG Base Excess -3.8 L Dick Test Yes ABG Potassium 4.7 A-a O2 Difference 86.0 Sodium 133.0 138 Chloride 104.0 104 Glucose 120 H Lactate 2.6 H FiO2 28.0 Blood Gas Comments Crit Value Called To Crit Value Called By Crit Value Read Back Blood Gas Notified Time Potassium 5.8 H Carbon Dioxide 20 L Anion Gap 20 BUN 20 H Creatinine 1.4 H Est GFR ( Amer) 48 Est GFR (Non-Af Amer) 40 Random Glucose 111 H Calcium 8.3 L Total Bilirubin 6.6 H AST 150 H ALT 26 Alkaline Phosphatase 253 H Troponin I 0.0400 NT-Pro-B Natriuret Pep 806 Total Protein 8.6 H Albumin 3.6 Globulin 4.9 H Albumin/Globulin Ratio 0.7 L Arterial Blood Potassium 4.7 Alcohol, Quantitative Influenza Typ A,B (EIA) 01/27/17 01/27/17 01/27/17 13:21 14:54 15:45 WBC RBC Hgb Hct MCV MCH MCHC RDW Plt Count MPV Neut % (Auto) Lymph % (Auto) Kleberg % (Auto) Eos % (Auto) Baso % (Auto) Neut # Lymph # Kleberg # Eos # Baso # pCO2 42 pO2 92 HCO3 20.1 L ABG pH 7.29 L ABG Total CO2 21.5 L ABG O2 Saturation 98.5 H ABG Base Excess -6.1 L Dick Test Yes ABG Potassium 4.5 A-a O2 Difference 283.0 Sodium 137.0 Chloride 106.0 Glucose 126 H Lactate 2.5 H FiO2 60.0 Blood Gas Comments Lactate 2.5 Crit Value Called To keena Jackson Crit Value Called By 203 Crit Value Read Back Y Blood Gas Notified Time 1557 Potassium Carbon Dioxide Anion Gap BUN Creatinine Est GFR ( Amer) Est GFR (Non-Af Amer) Random Glucose Calcium Total Bilirubin AST ALT Alkaline Phosphatase Troponin I NT-Pro-B Natriuret Pep Total Protein Albumin Globulin Albumin/Globulin Ratio Arterial Blood Potassium 4.5 Alcohol, Quantitative 73 H Influenza Typ A,B (EIA) Negative for flu a/b Radiology Interpretations (Free Text): See above Review of Systems - Review of Systems All systems: reviewed and no additional remarkable complaints except (as above) Critical Care Progress Note - Nutrition Nutrition: Nutrition Category Date Time Status Regular Diet [DIET] Diets 01/27/17 Lunch Active
[2017-01-27] MEDS ORDERED: FOLIC ACID IV SCH ×2 (17:00→17:15)
[2017-01-27] MEDS ORDERED: methylPREDNISolone 40 MG in Sodium Chloride 0.9% 50 ML IVPB SCH (17:00)
[2017-01-27] MEDS ORDERED: SODIUM CHLORIDE 0.9% IV SCH ×2 (17:00→17:15)
[2017-01-27] MEDS ORDERED: Insulin Regular 100 units/ml IV SCH (17:00)
[2017-01-27] MEDS ORDERED: MULTIVITAMIN IV ONE (17:15)
[2017-01-27] MEDS ORDERED: SODIUM CHLORIDE 0.9% IV ONE (17:15)
[2017-01-27] MEDS ORDERED: FOLIC ACID IV ONE (17:15)
[2017-01-27] MEDS ORDERED: THIAMINE IV ONE (17:15)
[2017-01-27] MEDS: MethylPREDNISolone 40 mg Vial IVP SCH (17:23)
[2017-01-27] MEDS: Piperacillin/Tazobact 3.375 GM in Sodium Chloride 0.9% 100 ML IVPB SCH (17:37)
[2017-01-27 17:53] LABS: THYROID STIMULATING HORMONE 0.73 mIU/ML (0.46-4.68)
[2017-01-27] MEDS ORDERED: Sodium Chloride 3% for Inhalation 4 ML VIAL.NEB IH PRN (18:00)
[2017-01-27 19:17] LABS: ALB/GLOB RATIO 0.7 (1.0-2.1); BILIRUBIN,TOTAL 5.9 mg/dl (0.2-1.3); CALCIUM 8.1 mg/dL (8.4-10.2); MAGNESIUM 1.3 MG/DL (1.6-2.3); PHOSPHOROUS 5.4 mg/dl (2.5-4.5); POTASSIUM 4.7 MMOL/L (3.6-5.0); TOTAL PROTEIN 7.8 G/DL (6.3-8.2)
[2017-01-27] MEDS: Albuterol-Ipratrop 3 mg / 0.5 (3 ml) UD INH SCH ×2 (19:25→23:20)
[2017-01-27] MEDS ORDERED: DiphenhydrAMINE 50 mg/ml Inj IVP SCH (22:00)
[2017-01-28] MEDS: DiphenhydrAMINE 50 mg/ml Inj IVP SCH ×3 (00:32→17:18)
[2017-01-28] MEDS: MethylPREDNISolone 40 mg Vial IVP SCH ×3 (00:32→17:15)
[2017-01-28] MEDS: Piperacillin/Tazobact 3.375 GM in Sodium Chloride 0.9% 100 ML IVPB SCH ×3 (02:45→17:23)
[2017-01-28] MEDS: Albuterol-Ipratrop 3 mg / 0.5 (3 ml) UD INH SCH ×6 (03:19→23:07)
[2017-01-28 05:20] LABS: ABG ALLEN TEST YES; ARTERIAL BLOOD FLOW 20; ARTERIAL BLOOD GAS HCO3 22.1 mmol/L (21-28); ARTERIAL BLOOD GAS MODE HFOV; ARTERIAL BLOOD GAS O2 CAPACITY 13.3 mL/dL (16-24); ARTERIAL BLOOD GAS O2 CONTENT 13.3 ML/dL (15-23); ARTERIAL BLOOD GAS PH 7.36 (7.35-7.45); ARTERIAL BLOOD GAS PO2 90 mm/Hg (80-100); ARTERIAL BLOOD HGB O2 SAT 96.4 % (95.0-98.0); CARBOXYHEMOGLOBIN 2.4 % (0.5-1.5); HHB 0.3 % (0.0-5.0)
[2017-01-28 05:44] LABS: HEMATOCRIT 30.1 % (34.0-47.0); MEAN CELL VOLUME 105.9 fl (81.0-99.0); MEAN CORPUSCULAR HEMOGLOBIN 34.8 pg (27.0-31.0); MEAN CORPUSCULAR HGB CONC 32.9 g/dL (33.0-37.0); WHITE BLOOD COUNT 12.3 K/uL (4.8-10.8)
[2017-01-28 05:55] LABS: IRON 69 ug/dL (37-170)
[2017-01-28] MEDS: Sodium Chloride 0.9% 1,000 ML IV SCH ×3 (07:00→17:18)
--- NOTE | 2017-01-28 08:38 | CARD ---
APPROVED REPORT EKG Measurement Heart [id number] <Conclusion> Sinus tachycardia with premature atrial complexes Anterior infarct, age undetermined Abnormal ECG
--- NOTE | 2017-01-28 08:39 | CARD ---
APPROVED REPORT EKG Measurement Heart [id number] <Conclusion> Sinus tachycardia Low voltage QRS Cannot rule out Anterior infarct, age undetermined Abnormal ECG
[2017-01-28 09:50] LABS: ALB/GLOB RATIO 0.7 (1.0-2.1); ALKALINE PHOSPHATASE 208 U/L (38-126); ALT/SGPT 30 U/L (9-52); AST/SGOT 91 U/L (14-36); BILIRUBIN,TOTAL 4.5 mg/dl (0.2-1.3); BLOOD UREA NITROGEN 22 mg/dl (7-17); CALCIUM 7.9 mg/dL (8.4-10.2); CARBON DIOXIDE 22 mmol/L (22-30); CHLORIDE 107 mmol/L (98-107); GFR AFRICAN-AMERICAN > 60; GLUCOSE,RANDOM 140 mg/dL (65-105); POTASSIUM 4.4 MMOL/L (3.6-5.0); SODIUM 141 mmol/l (132-148); TOTAL PROTEIN 7.7 G/DL (6.3-8.2)
[2017-01-28] MEDS: Enoxaparin 30 mg Syringe SC SCH (09:51)
[2017-01-28] MEDS: Multivitamin With Minerals Tab PO SCH (09:52)
[2017-01-28] MEDS: Azithromycin 500 MG in Sodium Chloride 0.9% 250 ML IVPB SCH (09:53)
--- NOTE | 2017-01-28 10:41 | CP.PCM.PN ---
Subjective - Date & Time of Evaluation Date of Evaluation: 01/28/17 Time of Evaluation: 09:15 - Subjective Subjective: Pt is alert, oriented x 3 sl tremulous No fever denies CP mild SOB + wheezing sl cough no abd pain Objective - Vital Signs/Intake and Output Vital Signs (last 24 hours): Temp Pulse Resp BP Pulse Ox 98.5 F 96 H 23 111/75 100 01/28/17 04:00 01/28/17 07:00 01/28/17 08:11 01/28/17 07:00 01/28/17 07:00 Intake and Output: 01/28/17 01/28/17 06:59 18:59 Intake Total 1125 Balance 1125 - Medications Medications: Current Medications Acetaminophen (Tylenol 325mg Tab) 650 mg PO Q6H PRN PRN Reason: Pain, Mild (1-3) Last Admin: 01/27/17 20:33 Dose: 650 mg Acetaminophen (Tylenol 325mg Tab) 650 mg PO Q6H PRN PRN Reason: Fever >100.4 F Albuterol/Ipratropium (Duoneb 3 Mg/0.5 Mg (3 Ml) Ud) 3 ml INH RQ4 [facility] Last Admin: 01/28/17 08:34 Dose: 3 ml Chlordiazepoxide (Librium) 50 mg PO Q6 [facility] Last Admin: 01/28/17 09:59 Dose: 50 mg Diphenhydramine HCl (Benadryl) 50 mg IVP Q8 [facility] Stop: 01/30/17 01:01 Last Admin: 01/28/17 10:02 Dose: 50 mg Docusate Sodium (Colace) 100 mg PO BID PRN PRN Reason: Constipation Enoxaparin Sodium (Lovenox) 30 mg SC DAILY [facility] PRN Reason: Protocol Last Admin: 01/28/17 09:51 Dose: 30 mg Famotidine (Pepcid) 20 mg IVP Q12 [facility] Last Admin: 01/28/17 09:51 Dose: 20 mg Folic Acid (Folic Acid) 1 mg PO DAILY [facility] Last Admin: 01/28/17 09:52 Dose: 1 mg Vancomycin HCl 1 gm/ Sodium (Chloride) 250 mls @ 250 mls/hr IVPB ONCE [facility] PRN Reason: Protocol Last Admin: 01/27/17 14:46 Dose: 250 mls/hr Azithromycin 500 mg/ Sodium (Chloride) 250 mls @ 250 mls/hr IVPB DAILY [facility] PRN Reason: Protocol Last Admin: 01/28/17 09:53 Dose: 250 mls/hr Piperacillin Sod/Tazobactam (Sod 3.375 gm/ Sodium Chloride) 100 mls @ 100 mls/ hr IVPB Q8 [facility] PRN Reason: Protocol Last Admin: 01/28/17 09:54 Dose: 100 mls/hr Vancomycin HCl 1 gm/ Sodium (Chloride) 250 mls @ 166.667 mls/hr IVPB DAILY [facility] PRN Reason: Protocol Last Admin: 01/28/17 10:28 Dose: 166.667 mls/hr Sodium Chloride (Sodium Chloride 0.9%) 1,000 mls @ 100 mls/hr IV .Q10H [facility] Stop: 01/29/17 03:30 Last Admin: 01/28/17 07:00 Dose: 100 mls/hr Ketorolac Tromethamine (Toradol) 15 mg IVP Q6 PRN PRN Reason: Pain, moderate (4-7) Last Admin: 01/28/17 07:00 Dose: 15 mg Lorazepam (Ativan) 1 mg PO TID PRN PRN Reason: Agitation Methylprednisolone (Solu-Medrol) 40 mg IVP Q8H [facility] Last Admin: 01/28/17 09:50 Dose: 40 mg Morphine Sulfate (Morphine) 2 mg IVP Q6 PRN PRN Reason: Pain, severe (8-10) Last Admin: 01/28/17 10:27 Dose: 2 mg Multivitamins/Minerals (Therapeutic-M Tab) 1 tab PO DAILY [facility] Last Admin: 01/28/17 09:52 Dose: 1 tab Nicotine (Nicoderm Cq) 1 patch TD DAILY [facility] Last Admin: 01/28/17 09:52 Dose: 1 patch Ondansetron HCl (Zofran Inj) 4 mg IVP Q6H PRN PRN Reason: Nausea/Vomiting Thiamine HCl (Vitamin B1 Tab) 100 mg PO DAILY [facility] Last Admin: 01/28/17 09:52 Dose: 100 mg - Labs Labs: 01/28/17 04:25 01/28/17 04:00 PT 17.5 Seconds (9.8-13.1) H 01/27/17 18:15 INR 1.5 (0.9-1.2) H 01/27/17 18:15 APTT 40.3 Seconds (25.6-37.1) H 01/27/17 18:15 - Constitutional Appears: No Acute Distress, Chronically Ill - Head Exam Head Exam: NORMAL INSPECTION, NORMOCEPHALIC - Eye Exam Eye Exam: EOMI, Normal appearance Pupil Exam: NORMAL ACCOMODATION - ENT Exam ENT Exam: Mucous Membranes Dry. absent: Normal External Ear Exam - Neck Exam Neck Exam: Full ROM. absent: Meningismus - Respiratory Exam Respiratory Exam: Rales, Rhonchi, Wheezes Additional comments: On High flow oxygen - Cardiovascular Exam Cardiovascular Exam: REGULAR RHYTHM, +S1, +S2 - GI/Abdominal Exam GI & Abdominal Exam: Soft, Normal Bowel Sounds. absent: Tenderness - Extremities Exam Extremities Exam: Normal Capillary Refill, Pedal Edema. absent: Calf Tenderness - Back Exam Back Exam: absent: CVA tenderness (L), CVA tenderness (R), vertebral tenderness - Neurological Exam Neurological Exam: Alert, Awake, CN II-XII Intact, Oriented x3 Neuro motor strength exam: Left Upper Extremity: 5, Right Upper Extremity: 5, Left Lower Extremity: 5, Right Lower Extremity: 5 - Psychiatric Exam Psychiatric exam: Normal Affect, Normal Mood - Skin Skin Exam: Dry, Normal Color, Warm Assessment and Plan - Assessment and Plan (Free Text) Assessment: 51 y/o female with COPD , fatty liver, Chronic ETOH abuse ( daily 8 cups of 8 ounce vodka ) , smoker , chronic lower back pain brought to ER for evaluation by EMS for facial and lower extremity swelling , SOB and lower back pain. As per patient she has some baseline SOB with ambulation and has chronic lower back pain . Pt was having some lower back pain for which she took some Motrin and Advil PM. and when she woke up she noticed her face and eyes to be swollen and her lower extremities were swollen as well. She could not get out of bed and was having significant back pain . She admits to having increased SOB with cough last couple of days, denies any fever ,chills, nausea, vomiting, chest pain . No sputum production. Denies any sick contact or trauma.She was seen at [facility] 1 week ago for SOB and was given steroids and duonebs. EMS was called and she was brought to ER where she was found to be in respiratory distress,with dyspnea RR 35 O2sat 94 %, slightly hypotensive BP 96/ 65 tachycardic HR 122. She was given 2 Duonebs in the field, 125 mg IV solumedrol in ER , started on IVF and placed on High Flow 20 LPM FIO2 60 % Her ABG showed PO2 70 PCO2 35 pH 7.38 . CXR showed bilateral infiltrates worse on the right WBC found to be elevated 16.8 Hgb 10 BUN/Cr 20/1.4 rigoberto 6.6 ASt / ALT 150/26 lactic acid 2.6 ETOH levels 73 Physical exam significant for tremors , increased work of breathing , periorbital, facial and lower extremity edema, her breath smells alcohol 1. Severe Sepsis Most likely secondary to multifocal pneumonia patient was hypotensive,tachycardic,hypoxemic with WBC 16.8 and CXR showing bilateral infiltrates, lactate 2.6 blood , urine, sputum cultures placed on High flow O2 20 LPM FIO2 60 % Started IVF Started Vanco, Zosyn and Zithromax ID consulted- Dr Escalera 2.Acute hypoxemic respiratory failure Treated with Duoneb x2 treatment and Solumedrol IV placed on High Flow O2 vi aNC 20 LPM FIO2 60 % CT chest showed multifocal infiltrates . Unable to perform CTA due to renal function Will hydrate patient and if renal function improves will perform CTA if respiratory status shows no improvement Pulmonary consulted Continue IV antibiotics and Duonebs 3. Multifocal Pneumonia ID and pulmonary consulted Started Vanco, Zosyn and Zithromax Follow up cultures patient is a long time smoker so will need to follow up resolution of infiltrates to rule out any underlying malignancy 4. Facial and lower extremity edema unclear etiology of facial edema -- rule out angioedema TSH : normal Given Solumedrol 125 mg IV Continue IVF , Solumedrol 40 mg IV Q8, PPI Started benadryl 5. ETOH abuse / Impending DT-s patient with tremors and tachycardic ETOH levels 73 ( last drink yesterday ) Start Thiamine, Folic acid and MVI on IVF stat Continue hydration Start Ativan PRN , Librium 50 mg PO q6 hours Seizure precautions/ withdrawal precautions 6. SUNDAR improving BUN/ Cr 20/1.4 no prior records and unknown renal function Started IVF 7.COPD mild exacerbation Duonebs , high flow pulmonary consulted counselled on smoking Pt is on IV Solumedrol 8. Alcoholic liver Bill 6.[address] chest showed hepatomegaly , fatty infiltration , some ascitic fluid and umbilical vein recannulization significant for portal hypertension Continue monitoring 9. Chronic Lower back pain Ct chest also showing mild chronic compression fracture in mid thoracic spine Pain management PT eval 10.Anemia unclear etiology Normal Iron and B12 level 11. Hyperkalemia Blood sample hymolyzed 12. Smoker on nicotine patch 13. DVT prophylaxis GI prophylaxis Lovenox Pepcid
--- NOTE | 2017-01-28 11:32 | CP.CCUPN ---
CCU Subjective - Physician Review Subjective (Free Text): Tolerated getting OOB to chair today, now undergoing bedside TTEcho- preliminary review shows good LV function. No increase in facial edema nor other torso - extremity related edematous changes. Remains on HFNC 20 LPM at 60 %. No increase in agitation noted. Other vitals and I/O's reviewed. ROS: No other pertinent negs or positives on 10+ system review. PMSFH: All Nursing and physician documentation reviewed to date; no new pertinent info noted relevant to current medical problems. CXR/ CT Chest: bilateral, but more right sided centrally located dense infiltrates (my interp). IMPRESSION / MAJOR PROBLEMS NOW: 1. Acute Hypoxemic Resp Failure 2. Bilateral Pneumonia 3. Azotemia / Dehydration, with Hyperkalemia; r/o CKD 4. Chronic ETOH Intoxication with early Delirium Tremans, and AKA. 5. Anemia, with mixed Indices; unclear acute vs. chronic disease type 6. Hyperbilirubinemia with AST and Alk Phos elevation PLAN: 1. Does not need immediate or urgent airway control, nor assisted breathing or ventilatory support. Continue HFNC for now. 2. Librium started, watch for excessive sedation and resp status. 3. Empiric steroids, Duoneb inh therapy; H1 and H2 antagonists IV for another 24H, then stop. 4. Empiric abx coverage, and atypical organism coverage. ?? Chronic Aspiration pneumonia?? 5. Check GGT, consider Liver/GB/Pancreas US. 6. Thiamine / Folate supplements, hydrate with NSS 7. Venous Doppler of Legs, r/o DVT. CCU Objective - Vital Signs / Intake & Output Vital Signs (Last 4 hours): Vital Signs Resp 01/28/17 11:04 15 01/28/17 08:11 23 Intake and Output (Last 8hrs): Intake & Output 01/27/17 01/28/17 01/28/17 22:59 06:59 14:59 Intake Total 965 800 Balance 965 800 Intake: IV 350 800 Intake, Piggyback 350 Oral 265 Other: # Voids Urine, Voided 1 # Bowel Movements 1 - Physical Exam Head: Positive for: Atraumatic, Normocephalic Pupils: Positive for: PERRL Extroacular Muscles: Positive for: EOMI. Negative for: Gaze Palsy Conjunctiva: Positive for: Icteric Mouth: Positive for: Moist Mucous Membranes Pharnyx: Positive for: Normal Neck: Negative for: JVD, Lymphadenopathy Respiratory/Chest: Positive for: Wheezes, Decreased Breath Sounds. Negative for : Accessory Muscle Use Cardiovascular: Positive for: Regular Rate and Rhythm, Tachycardic. Negative for: Murmurs, Rub Abdomen: Positive for: Normal Bowel Sounds, Other (obese). Negative for: Tenderness, Distention, Mass/Organomegaly Lower Extremity: Positive for: Edema, NORMAL PULSES, Other (mild skin erythema and redness with increased warmth bilaterally). Negative for: CALF TENDERNESS, Cyanosis Neurological: Positive for: GCS=15, Motor Func Grossly Intact, Normal Sensory Function Skin: Positive for: Warm, Dry, Other (3 ecchymotic areas along Right lateral back area). Negative for: Rashes Psychiatric: Positive for: Alert, Oriented x 3, Agitated - Medications Active Medications: Active Medications Generic Name Dose Route Start Last Admin Trade Name Freq PRN Reason Stop Dose Admin Acetaminophen 650 mg 01/27/17 16:27 01/27/17 20:33 Tylenol 325mg Tab PO 650 mg Q6H PRN Administration Pain, Mild (1-3) Acetaminophen 650 mg 01/27/17 16:27 Tylenol 325mg Tab PO Q6H PRN Fever >100.4 F Albuterol/Ipratropium 3 ml 01/27/17 20:00 01/28/17 08:34 Duoneb 3 Mg/0.5 Mg (3 Ml) Ud INH 3 ml RQ4 FOREST Administration Chlordiazepoxide 50 mg 01/27/17 22:00 01/28/17 09:59 Librium PO 50 mg Q6 FOREST Administration Diphenhydramine HCl 50 mg 01/28/17 01:00 01/28/17 10:02 Benadryl IVP 01/30/17 01:01 50 mg Q8 FOREST Administration Docusate Sodium 100 mg 01/27/17 16:27 Colace PO BID PRN Constipation Enoxaparin Sodium 30 mg 01/28/17 09:00 01/28/17 09:51 Lovenox SC 30 mg DAILY FOREST Administration Protocol Famotidine 20 mg 01/27/17 21:00 01/28/17 09:51 Pepcid IVP 20 mg Q12 FOREST Administration Folic Acid 1 mg 01/28/17 09:00 01/28/17 09:52 Folic Acid PO 1 mg DAILY FOREST Administration Vancomycin HCl 1 gm/ Sodium 250 mls @ 250 mls/hr 01/27/17 14:15 01/27/17 14: 46 Chloride IVPB 250 mls/hr ONCE FOREST Administration Protocol Azithromycin 500 mg/ Sodium 250 mls @ 250 mls/hr 01/28/17 09:00 01/28/17 09: 53 Chloride IVPB 250 mls/hr DAILY FOREST Administration Protocol Piperacillin Sod/Tazobactam 100 mls @ 100 mls/hr 01/27/17 17:00 01/28/17 09: 54 Sod 3.375 gm/ Sodium Chloride IVPB 100 mls/hr Q8 FOREST Administration Protocol Vancomycin HCl 1 gm/ Sodium 250 mls @ 166.667 mls/hr 01/28/17 09:00 01/28/17 10:28 Chloride IVPB 166.667 mls/hr DAILY FOREST Administration Protocol Sodium Chloride 1,000 mls @ 100 mls/hr 01/28/17 03:30 01/28/17 07:00 Sodium Chloride 0.9% IV 01/29/17 03:30 100 mls/hr .Q10H FOREST Administration Ketorolac Tromethamine 15 mg 01/27/17 18:00 01/28/17 07:00 Toradol IVP 15 mg Q6 PRN Administration Pain, moderate (4-7) Lorazepam 1 mg 01/27/17 17:20 Ativan PO TID PRN Agitation Methylprednisolone 40 mg 01/27/17 16:45 01/28/17 09:50 Solu-Medrol IVP 40 mg Q8H FOREST Administration Morphine Sulfate 2 mg 01/27/17 18:00 01/28/17 10:27 Morphine IVP 2 mg Q6 PRN Administration Pain, severe (8-10) Multivitamins/Minerals 1 tab 01/28/17 09:00 01/28/17 09:52 Therapeutic-M Tab PO 1 tab DAILY FOREST Administration Nicotine 1 patch 01/28/17 09:00 01/28/17 09:52 Nicoderm Cq TD 1 patch DAILY FOREST Administration Ondansetron HCl 4 mg 01/27/17 16:27 Zofran Inj IVP Q6H PRN Nausea/Vomiting Thiamine HCl 100 mg 01/28/17 09:00 01/28/17 09:52 Vitamin B1 Tab PO 100 mg DAILY FOREST Administration - Patient Studies Lab Studies: Lab Studies 01/28/17 01/28/17 01/28/17 Range/Units 07:37 05:13 04:25 WBC (4.8-10.8) K/uL RBC (3.80-5.20) Mil/uL Hgb (12.0-16.0) g/dL Hct (34.0-47.0) % MCV (81.0-99.0) fl MCH (27.0-31.0) pg MCHC (33.0-37.0) g/dL RDW (11.5-14.5) % Plt Count (130-400) K/uL MPV (7.2-11.7) fl Neut % (Auto) (50.0-75.0) % Lymph % (Auto) (20.0-40.0) % Nash % (Auto) (0.0-10.0) % Eos % (Auto) (0.0-4.0) % Baso % (Auto) (0.0-2.0) % Neut # (1.8-7.0) K/uL Lymph # (1.0-4.3) K/uL Nash # (0.0-0.8) K/uL Eos # (0.0-0.7) K/uL Baso # (0.0-0.2) K/uL Retic Count (0.5-1.5) % PT (9.8-13.1) Seconds INR (0.9-1.2) APTT (25.6-37.1) Seconds pCO2 38 (35-45) mm/Hg pO2 90 (80-100) mm/Hg HCO3 22.1 (21-28) mmol/L ABG pH 7.36 (7.35-7.45) ABG Total CO2 22.7 (22-28) mmol/L ABG O2 Saturation 99.7 H (95-98) % ABG O2 Content 13.3 L (15-23) ML/dL ABG Base Excess -3.6 L (-2.0-3.0) mmol/L ABG Hemoglobin 9.7 L (11.7-17.4) g/dL ABG Carboxyhemoglobin 2.4 H (0.5-1.5) % POC ABG HHb (Measured) 0.3 (0.0-5.0) % ABG Methemoglobin 1.0 (0.0-3.0) % ABG O2 Capacity 13.3 L (16-24) mL/dL Dick Test Yes ABG Potassium (3.6-5.2) mmol/L A-a O2 Difference 290.0 mm/Hg Hgb O2 Saturation 96.4 (95.0-98.0) % Sodium (132-148) mmol/L Chloride (98-107) mmol/L Glucose (65-105) mg/dL Lactate (0.7-2.1) mmol/L Liter Flow 20 Vent Mode Hfov FiO2 60.0 % Blood Gas Comments Crit Value Called To Crit Value Called By Crit Value Read Back Blood Gas Notified Time Potassium (3.6-5.0) MMOL/L Carbon Dioxide (22-30) mmol/L Anion Gap (10-20) BUN (7-17) mg/dl Creatinine (0.7-1.2) mg/dl Est GFR ( Amer) Est GFR (Non-Af Amer) POC Glucose (mg/dL) 149 H (65-110) mg/dL Random Glucose (65-105) mg/dL Calcium (8.4-10.2) mg/dL Phosphorus (2.5-4.5) mg/dl Magnesium (1.6-2.3) MG/DL Iron (37-170) ug/dL TIBC (250-450) ug/dL % Saturation (20-55) % Ferritin 268.0 H (11.1-264.0) ng/Ml Total Bilirubin (0.2-1.3) mg/dl AST (14-36) U/L ALT (9-52) U/L Alkaline Phosphatase (38-126) U/L Ammonia (11-51) umo/L Troponin I (0.00-0.120) ng/mL NT-Pro-B Natriuret Pep (0-900) pg/ml Total Protein (6.3-8.2) G/DL Albumin (3.5-5.0) g/dL Globulin (2.2-3.9) gm/dL Albumin/Globulin Ratio (1.0-2.1) Triglycerides (0-149) mg/DL Cholesterol (0-199) mg/dL LDL Cholesterol Direct (0-129) mg/dL HDL Cholesterol (30-70) MG/DL Vitamin B12 755 (239-931) pg/mL TSH 3rd Generation (0.46-4.68) mIU/ML Arterial Blood Potassium (3.6-5.2) mmol/L Alcohol, Quantitative (0-10) mg/dl Influenza Typ A,B (EIA) (NEGATIVE) 01/28/17 01/28/17 01/28/17 Range/Units 04:25 04:25 04:00 WBC 12.3 H (4.8-10.8) K/uL RBC 2.84 L (3.80-5.20) Mil/uL Hgb 9.9 L (12.0-16.0) g/dL Hct 30.1 L (34.0-47.0) % MCV 105.9 H (81.0-99.0) fl MCH 34.8 H (27.0-31.0) pg MCHC 32.9 L (33.0-37.0) g/dL RDW 16.0 H (11.5-14.5) % Plt Count 152 (130-400) K/uL MPV (7.2-11.7) fl Neut % (Auto) (50.0-75.0) % Lymph % (Auto) (20.0-40.0) % Nash % (Auto) (0.0-10.0) % Eos % (Auto) (0.0-4.0) % Baso % (Auto) (0.0-2.0) % Neut # (1.8-7.0) K/uL Lymph # (1.0-4.3) K/uL Nash # (0.0-0.8) K/uL Eos # (0.0-0.7) K/uL Baso # (0.0-0.2) K/uL Retic Count 1.0 (0.5-1.5) % PT (9.8-13.1) Seconds INR (0.9-1.2) APTT (25.6-37.1) Seconds pCO2 (35-45) mm/Hg pO2 (80-100) mm/Hg HCO3 (21-28) mmol/L ABG pH (7.35-7.45) ABG Total CO2 (22-28) mmol/L ABG O2 Saturation (95-98) % ABG O2 Content (15-23) ML/dL ABG Base Excess (-2.0-3.0) mmol/L ABG Hemoglobin (11.7-17.4) g/dL ABG Carboxyhemoglobin (0.5-1.5) % POC ABG HHb (Measured) (0.0-5.0) % ABG Methemoglobin (0.0-3.0) % ABG O2 Capacity (16-24) mL/dL Dick Test ABG Potassium (3.6-5.2) mmol/L A-a O2 Difference mm/Hg Hgb O2 Saturation (95.0-98.0) % Sodium 141 (132-148) mmol/L Chloride 107 (98-107) mmol/L Glucose (65-105) mg/dL Lactate (0.7-2.1) mmol/L Liter Flow Vent Mode FiO2 % Blood Gas Comments Crit Value Called To Crit Value Called By Crit Value Read Back Blood Gas Notified Time Potassium 4.4 (3.6-5.0) MMOL/L Carbon Dioxide 22 (22-30) mmol/L Anion Gap 16 (10-20) BUN 22 H (7-17) mg/dl Creatinine 1.1 (0.7-1.2) mg/dl Est GFR ( Amer) > 60 Est GFR (Non-Af Amer) 52 POC Glucose (mg/dL) (65-110) mg/dL Random Glucose 140 H (65-105) mg/dL Calcium 7.9 L (8.4-10.2) mg/dL Phosphorus (2.5-4.5) mg/dl Magnesium (1.6-2.3) MG/DL Iron 69 (37-170) ug/dL TIBC 197 L (250-450) ug/dL % Saturation 35 (20-55) % Ferritin (11.1-264.0) ng/Ml Total Bilirubin 4.5 H (0.2-1.3) mg/dl AST 91 H D (14-36) U/L ALT 30 (9-52) U/L Alkaline Phosphatase 208 H (38-126) U/L Ammonia (11-51) umo/L Troponin I (0.00-0.120) ng/mL NT-Pro-B Natriuret Pep (0-900) pg/ml Total Protein 7.7 (6.3-8.2) G/DL Albumin 3.1 L (3.5-5.0) g/dL Globulin 4.6 H (2.2-3.9) gm/dL Albumin/Globulin Ratio 0.7 L (1.0-2.1) Triglycerides (0-149) mg/DL Cholesterol (0-199) mg/dL LDL Cholesterol Direct (0-129) mg/dL HDL Cholesterol (30-70) MG/DL Vitamin B12 (239-931) pg/mL TSH 3rd Generation (0.46-4.68) mIU/ML Arterial Blood Potassium (3.6-5.2) mmol/L Alcohol, Quantitative (0-10) mg/dl Influenza Typ A,B (EIA) (NEGATIVE) 01/27/17 01/27/17 01/27/17 Range/Units 21:11 18:15 18:15 WBC (4.8-10.8) K/uL RBC (3.80-5.20) Mil/uL Hgb (12.0-16.0) g/dL Hct (34.0-47.0) % MCV (81.0-99.0) fl MCH (27.0-31.0) pg MCHC (33.0-37.0) g/dL RDW (11.5-14.5) % Plt Count (130-400) K/uL MPV (7.2-11.7) fl Neut % (Auto) (50.0-75.0) % Lymph % (Auto) (20.0-40.0) % Nash % (Auto) (0.0-10.0) % Eos % (Auto) (0.0-4.0) % Baso % (Auto) (0.0-2.0) % Neut # (1.8-7.0) K/uL Lymph # (1.0-4.3) K/uL Nash # (0.0-0.8) K/uL Eos # (0.0-0.7) K/uL Baso # (0.0-0.2) K/uL Retic Count (0.5-1.5) % PT (9.8-13.1) Seconds INR (0.9-1.2) APTT 40.3 H (25.6-37.1) Seconds pCO2 (35-45) mm/Hg pO2 (80-100) mm/Hg HCO3 (21-28) mmol/L ABG pH (7.35-7.45) ABG Total CO2 (22-28) mmol/L ABG O2 Saturation (95-98) % ABG O2 Content (15-23) ML/dL ABG Base Excess (-2.0-3.0) mmol/L ABG Hemoglobin (11.7-17.4) g/dL ABG Carboxyhemoglobin (0.5-1.5) % POC ABG HHb (Measured) (0.0-5.0) % ABG Methemoglobin (0.0-3.0) % ABG O2 Capacity (16-24) mL/dL Dick Test ABG Potassium (3.6-5.2) mmol/L A-a O2 Difference mm/Hg Hgb O2 Saturation (95.0-98.0) % Sodium 138 (132-148) mmol/L Chloride 105 (98-107) mmol/L Glucose (65-105) mg/dL Lactate (0.7-2.1) mmol/L Liter Flow Vent Mode FiO2 % Blood Gas Comments Crit Value Called To Crit Value Called By Crit Value Read Back Blood Gas Notified Time Potassium 4.7 (3.6-5.0) MMOL/L Carbon Dioxide 20 L (22-30) mmol/L Anion Gap 18 (10-20) BUN 20 H (7-17) mg/dl Creatinine 1.4 H (0.7-1.2) mg/dl Est GFR ( Amer) 48 Est GFR (Non-Af Amer) 40 POC Glucose (mg/dL) 217 H (65-110) mg/dL Random Glucose 113 H (65-105) mg/dL Calcium 8.1 L (8.4-10.2) mg/dL Phosphorus 5.4 H (2.5-4.5) mg/dl Magnesium 1.3 L (1.6-2.3) MG/DL Iron (37-170) ug/dL TIBC (250-450) ug/dL % Saturation (20-55) % Ferritin (11.1-264.0) ng/Ml Total Bilirubin 5.9 H (0.2-1.3) mg/dl AST 124 H (14-36) U/L ALT 35 (9-52) U/L Alkaline Phosphatase 243 H (38-126) U/L Ammonia (11-51) umo/L Troponin I (0.00-0.120) ng/mL NT-Pro-B Natriuret Pep (0-900) pg/ml Total Protein 7.8 (6.3-8.2) G/DL Albumin 3.1 L (3.5-5.0) g/dL Globulin 4.6 H (2.2-3.9) gm/dL Albumin/Globulin Ratio 0.7 L (1.0-2.1) Triglycerides (0-149) mg/DL Cholesterol (0-199) mg/dL LDL Cholesterol Direct (0-129) mg/dL HDL Cholesterol (30-70) MG/DL Vitamin B12 (239-931) pg/mL TSH 3rd Generation (0.46-4.68) mIU/ML Arterial Blood Potassium (3.6-5.2) mmol/L Alcohol, Quantitative (0-10) mg/dl Influenza Typ A,B (EIA) (NEGATIVE) 01/27/17 01/27/17 01/27/17 Range/Units 18:15 18:15 17:20 WBC (4.8-10.8) K/uL RBC (3.80-5.20) Mil/uL Hgb (12.0-16.0) g/dL Hct (34.0-47.0) % MCV (81.0-99.0) fl MCH (27.0-31.0) pg MCHC (33.0-37.0) g/dL RDW (11.5-14.5) % Plt Count (130-400) K/uL MPV (7.2-11.7) fl Neut % (Auto) (50.0-75.0) % Lymph % (Auto) (20.0-40.0) % Nash % (Auto) (0.0-10.0) % Eos % (Auto) (0.0-4.0) % Baso % (Auto) (0.0-2.0) % Neut # (1.8-7.0) K/uL Lymph # (1.0-4.3) K/uL Nash # (0.0-0.8) K/uL Eos # (0.0-0.7) K/uL Baso # (0.0-0.2) K/uL Retic Count (0.5-1.5) % PT 17.5 H (9.8-13.1) Seconds INR 1.5 H (0.9-1.2) APTT (25.6-37.1) Seconds pCO2 (35-45) mm/Hg pO2 (80-100) mm/Hg HCO3 (21-28) mmol/L ABG pH (7.35-7.45) ABG Total CO2 (22-28) mmol/L ABG O2 Saturation (95-98) % ABG O2 Content (15-23) ML/dL ABG Base Excess (-2.0-3.0) mmol/L ABG Hemoglobin (11.7-17.4) g/dL ABG Carboxyhemoglobin (0.5-1.5) % POC ABG HHb (Measured) (0.0-5.0) % ABG Methemoglobin (0.0-3.0) % ABG O2 Capacity (16-24) mL/dL Dick Test ABG Potassium (3.6-5.2) mmol/L A-a O2 Difference mm/Hg Hgb O2 Saturation (95.0-98.0) % Sodium (132-148) mmol/L Chloride (98-107) mmol/L Glucose (65-105) mg/dL Lactate (0.7-2.1) mmol/L Liter Flow Vent Mode FiO2 % Blood Gas Comments Crit Value Called To Crit Value Called By Crit Value Read Back Blood Gas Notified Time Potassium (3.6-5.0) MMOL/L Carbon Dioxide (22-30) mmol/L Anion Gap (10-20) BUN (7-17) mg/dl Creatinine (0.7-1.2) mg/dl Est GFR ( Amer) Est GFR (Non-Af Amer) POC Glucose (mg/dL) 124 H (65-110) mg/dL Random Glucose (65-105) mg/dL Calcium (8.4-10.2) mg/dL Phosphorus (2.5-4.5) mg/dl Magnesium (1.6-2.3) MG/DL Iron (37-170) ug/dL TIBC (250-450) ug/dL % Saturation (20-55) % Ferritin (11.1-264.0) ng/Ml Total Bilirubin (0.2-1.3) mg/dl AST (14-36) U/L ALT (9-52) U/L Alkaline Phosphatase (38-126) U/L Ammonia 51 (11-51) umo/L Troponin I (0.00-0.120) ng/mL NT-Pro-B Natriuret Pep (0-900) pg/ml Total Protein (6.3-8.2) G/DL Albumin (3.5-5.0) g/dL Globulin (2.2-3.9) gm/dL Albumin/Globulin Ratio (1.0-2.1) Triglycerides (0-149) mg/DL Cholesterol (0-199) mg/dL LDL Cholesterol Direct (0-129) mg/dL HDL Cholesterol (30-70) MG/DL Vitamin B12 (239-931) pg/mL TSH 3rd Generation (0.46-4.68) mIU/ML Arterial Blood Potassium (3.6-5.2) mmol/L Alcohol, Quantitative (0-10) mg/dl Influenza Typ A,B (EIA) (NEGATIVE) 01/27/17 01/27/17 01/27/17 Range/Units 15:45 14:54 14:39 WBC (4.8-10.8) K/uL RBC (3.80-5.20) Mil/uL Hgb (12.0-16.0) g/dL Hct (34.0-47.0) % MCV (81.0-99.0) fl MCH (27.0-31.0) pg MCHC (33.0-37.0) g/dL RDW (11.5-14.5) % Plt Count (130-400) K/uL MPV (7.2-11.7) fl Neut % (Auto) (50.0-75.0) % Lymph % (Auto) (20.0-40.0) % Nash % (Auto) (0.0-10.0) % Eos % (Auto) (0.0-4.0) % Baso % (Auto) (0.0-2.0) % Neut # (1.8-7.0) K/uL Lymph # (1.0-4.3) K/uL Nash # (0.0-0.8) K/uL Eos # (0.0-0.7) K/uL Baso # (0.0-0.2) K/uL Retic Count (0.5-1.5) % PT (9.8-13.1) Seconds INR (0.9-1.2) APTT (25.6-37.1) Seconds pCO2 42 (35-45) mm/Hg pO2 92 (80-100) mm/Hg HCO3 20.1 L (21-28) mmol/L ABG pH 7.29 L (7.35-7.45) ABG Total CO2 21.5 L (22-28) mmol/L ABG O2 Saturation 98.5 H (95-98) % ABG O2 Content (15-23) ML/dL ABG Base Excess -6.1 L (-2.0-3.0) mmol/L ABG Hemoglobin (11.7-17.4) g/dL ABG Carboxyhemoglobin (0.5-1.5) % POC ABG HHb (Measured) (0.0-5.0) % ABG Methemoglobin (0.0-3.0) % ABG O2 Capacity (16-24) mL/dL Dick Test Yes ABG Potassium 4.5 (3.6-5.2) mmol/L A-a O2 Difference 283.0 mm/Hg Hgb O2 Saturation (95.0-98.0) % Sodium 137.0 (132-148) mmol/L Chloride 106.0 (98-107) mmol/L Glucose 126 H (65-105) mg/dL Lactate 2.5 H (0.7-2.1) mmol/L Liter Flow Vent Mode FiO2 60.0 % Blood Gas Comments Lactate 2.5 Crit Value Called To keena Jackson Crit Value Called By 203 Crit Value Read Back Y Blood Gas Notified Time 1557 Potassium (3.6-5.0) MMOL/L Carbon Dioxide (22-30) mmol/L Anion Gap (10-20) BUN (7-17) mg/dl Creatinine (0.7-1.2) mg/dl Est GFR ( Amer) Est GFR (Non-Af Amer) POC Glucose (mg/dL) (65-110) mg/dL Random Glucose (65-105) mg/dL Calcium (8.4-10.2) mg/dL Phosphorus (2.5-4.5) mg/dl Magnesium (1.6-2.3) MG/DL Iron (37-170) ug/dL TIBC (250-450) ug/dL % Saturation (20-55) % Ferritin (11.1-264.0) ng/Ml Total Bilirubin (0.2-1.3) mg/dl AST (14-36) U/L ALT (9-52) U/L Alkaline Phosphatase (38-126) U/L Ammonia (11-51) umo/L Troponin I (0.00-0.120) ng/mL NT-Pro-B Natriuret Pep (0-900) pg/ml Total Protein (6.3-8.2) G/DL Albumin (3.5-5.0) g/dL Globulin (2.2-3.9) gm/dL Albumin/Globulin Ratio (1.0-2.1) Triglycerides 187 H (0-149) mg/DL Cholesterol 174 (0-199) mg/dL LDL Cholesterol Direct 88 (0-129) mg/dL HDL Cholesterol 16 L (30-70) MG/DL Vitamin B12 (239-931) pg/mL TSH 3rd Generation 0.73 (0.46-4.68) mIU/ML Arterial Blood Potassium 4.5 (3.6-5.2) mmol/L Alcohol, Quantitative 73 H (0-10) mg/dl Influenza Typ A,B (EIA) (NEGATIVE) 01/27/17 01/27/17 01/27/17 Range/Units 13:21 13:21 13:21 WBC 16.8 H (4.8-10.8) K/uL RBC 2.98 L (3.80-5.20) Mil/uL Hgb 10.5 L (12.0-16.0) g/dL Hct 31.2 L (34.0-47.0) % MCV 104.9 H (81.0-99.0) fl MCH 35.3 H (27.0-31.0) pg MCHC 33.6 (33.0-37.0) g/dL RDW 16.1 H (11.5-14.5) % Plt Count 207 (130-400) K/uL MPV 9.3 (7.2-11.7) fl Neut % (Auto) 83.4 H (50.0-75.0) % Lymph % (Auto) 10.3 L (20.0-40.0) % Nash % (Auto) 5.6 (0.0-10.0) % Eos % (Auto) 0.1 (0.0-4.0) % Baso % (Auto) 0.6 (0.0-2.0) % Neut # 14.0 H (1.8-7.0) K/uL Lymph # 1.7 (1.0-4.3) K/uL Nash # 0.9 H (0.0-0.8) K/uL Eos # 0.0 (0.0-0.7) K/uL Baso # 0.1 (0.0-0.2) K/uL Retic Count (0.5-1.5) % PT (9.8-13.1) Seconds INR (0.9-1.2) APTT (25.6-37.1) Seconds pCO2 (35-45) mm/Hg pO2 (80-100) mm/Hg HCO3 (21-28) mmol/L ABG pH (7.35-7.45) ABG Total CO2 (22-28) mmol/L ABG O2 Saturation (95-98) % ABG O2 Content (15-23) ML/dL ABG Base Excess (-2.0-3.0) mmol/L ABG Hemoglobin (11.7-17.4) g/dL ABG Carboxyhemoglobin (0.5-1.5) % POC ABG HHb (Measured) (0.0-5.0) % ABG Methemoglobin (0.0-3.0) % ABG O2 Capacity (16-24) mL/dL Dick Test ABG Potassium (3.6-5.2) mmol/L A-a O2 Difference mm/Hg Hgb O2 Saturation (95.0-98.0) % Sodium 138 (132-148) mmol/L Chloride 104 (98-107) mmol/L Glucose (65-105) mg/dL Lactate (0.7-2.1) mmol/L Liter Flow Vent Mode FiO2 % Blood Gas Comments Crit Value Called To Crit Value Called By Crit Value Read Back Blood Gas Notified Time Potassium 5.8 H (3.6-5.0) MMOL/L Carbon Dioxide 20 L (22-30) mmol/L Anion Gap 20 (10-20) BUN 20 H (7-17) mg/dl Creatinine 1.4 H (0.7-1.2) mg/dl Est GFR ( Amer) 48 Est GFR (Non-Af Amer) 40 POC Glucose (mg/dL) (65-110) mg/dL Random Glucose 111 H (65-105) mg/dL Calcium 8.3 L (8.4-10.2) mg/dL Phosphorus (2.5-4.5) mg/dl Magnesium (1.6-2.3) MG/DL Iron (37-170) ug/dL TIBC (250-450) ug/dL % Saturation (20-55) % Ferritin (11.1-264.0) ng/Ml Total Bilirubin 6.6 H (0.2-1.3) mg/dl AST 150 H (14-36) U/L ALT 26 (9-52) U/L Alkaline Phosphatase 253 H (38-126) U/L Ammonia (11-51) umo/L Troponin I 0.0400 (0.00-0.120) ng/mL NT-Pro-B Natriuret Pep 806 (0-900) pg/ml Total Protein 8.6 H (6.3-8.2) G/DL Albumin 3.6 (3.5-5.0) g/dL Globulin 4.9 H (2.2-3.9) gm/dL Albumin/Globulin Ratio 0.7 L (1.0-2.1) Triglycerides (0-149) mg/DL Cholesterol (0-199) mg/dL LDL Cholesterol Direct (0-129) mg/dL HDL Cholesterol (30-70) MG/DL Vitamin B12 (239-931) pg/mL TSH 3rd Generation (0.46-4.68) mIU/ML Arterial Blood Potassium (3.6-5.2) mmol/L Alcohol, Quantitative (0-10) mg/dl Influenza Typ A,B (EIA) Negative for flu a/b (NEGATIVE) 01/27/17 Range/Units 13:04 WBC (4.8-10.8) K/uL RBC (3.80-5.20) Mil/uL Hgb (12.0-16.0) g/dL Hct (34.0-47.0) % MCV (81.0-99.0) fl MCH (27.0-31.0) pg MCHC (33.0-37.0) g/dL RDW (11.5-14.5) % Plt Count (130-400) K/uL MPV (7.2-11.7) fl Neut % (Auto) (50.0-75.0) % Lymph % (Auto) (20.0-40.0) % Nash % (Auto) (0.0-10.0) % Eos % (Auto) (0.0-4.0) % Baso % (Auto) (0.0-2.0) % Neut # (1.8-7.0) K/uL Lymph # (1.0-4.3) K/uL Nash # (0.0-0.8) K/uL Eos # (0.0-0.7) K/uL Baso # (0.0-0.2) K/uL Retic Count (0.5-1.5) % PT (9.8-13.1) Seconds INR (0.9-1.2) APTT (25.6-37.1) Seconds pCO2 35 (35-45) mm/Hg pO2 70 L (80-100) mm/Hg HCO3 21.9 (21-28) mmol/L ABG pH 7.38 (7.35-7.45) ABG Total CO2 21.8 L (22-28) mmol/L ABG O2 Saturation 99.0 H (95-98) % ABG O2 Content (15-23) ML/dL ABG Base Excess -3.8 L (-2.0-3.0) mmol/L ABG Hemoglobin (11.7-17.4) g/dL ABG Carboxyhemoglobin (0.5-1.5) % POC ABG HHb (Measured) (0.0-5.0) % ABG Methemoglobin (0.0-3.0) % ABG O2 Capacity (16-24) mL/dL Dick Test Yes ABG Potassium 4.7 (3.6-5.2) mmol/L A-a O2 Difference 86.0 mm/Hg Hgb O2 Saturation (95.0-98.0) % Sodium 133.0 (132-148) mmol/L Chloride 104.0 (98-107) mmol/L Glucose 120 H (65-105) mg/dL Lactate 2.6 H (0.7-2.1) mmol/L Liter Flow Vent Mode FiO2 28.0 % Blood Gas Comments Crit Value Called To Crit Value Called By Crit Value Read Back Blood Gas Notified Time Potassium (3.6-5.0) MMOL/L Carbon Dioxide (22-30) mmol/L Anion Gap (10-20) BUN (7-17) mg/dl Creatinine (0.7-1.2) mg/dl Est GFR ( Amer) Est GFR (Non-Af Amer) POC Glucose (mg/dL) (65-110) mg/dL Random Glucose (65-105) mg/dL Calcium (8.4-10.2) mg/dL Phosphorus (2.5-4.5) mg/dl Magnesium (1.6-2.3) MG/DL Iron (37-170) ug/dL TIBC (250-450) ug/dL % Saturation (20-55) % Ferritin (11.1-264.0) ng/Ml Total Bilirubin (0.2-1.3) mg/dl AST (14-36) U/L ALT (9-52) U/L Alkaline Phosphatase (38-126) U/L Ammonia (11-51) umo/L Troponin I (0.00-0.120) ng/mL NT-Pro-B Natriuret Pep (0-900) pg/ml Total Protein (6.3-8.2) G/DL Albumin (3.5-5.0) g/dL Globulin (2.2-3.9) gm/dL Albumin/Globulin Ratio (1.0-2.1) Triglycerides (0-149) mg/DL Cholesterol (0-199) mg/dL LDL Cholesterol Direct (0-129) mg/dL HDL Cholesterol (30-70) MG/DL Vitamin B12 (239-931) pg/mL TSH 3rd Generation (0.46-4.68) mIU/ML Arterial Blood Potassium 4.7 (3.6-5.2) mmol/L Alcohol, Quantitative (0-10) mg/dl Influenza Typ A,B (EIA) (NEGATIVE) Laboratory Results - last 24 hr 01/27/17 01/27/17 01/27/17 13:04 13:21 13:21 WBC 16.8 H RBC 2.98 L Hgb 10.5 L Hct 31.2 L MCV 104.9 H MCH 35.3 H MCHC 33.6 RDW 16.1 H Plt Count 207 MPV 9.3 Neut % (Auto) 83.4 H Lymph % (Auto) 10.3 L Nash % (Auto) 5.6 Eos % (Auto) 0.1 Baso % (Auto) 0.6 Neut # 14.0 H Lymph # 1.7 Nash # 0.9 H Eos # 0.0 Baso # 0.1 Retic Count PT INR APTT pCO2 35 pO2 70 L HCO3 21.9 ABG pH 7.38 ABG Total CO2 21.8 L ABG O2 Saturation 99.0 H ABG O2 Content ABG Base Excess -3.8 L ABG Hemoglobin ABG Carboxyhemoglobin POC ABG HHb (Measured) ABG Methemoglobin ABG O2 Capacity Dick Test Yes ABG Potassium 4.7 A-a O2 Difference 86.0 Hgb O2 Saturation Sodium 133.0 138 Chloride 104.0 104 Glucose 120 H Lactate 2.6 H Liter Flow Vent Mode FiO2 28.0 Blood Gas Comments Crit Value Called To Crit Value Called By Crit Value Read Back Blood Gas Notified Time Potassium 5.8 H Carbon Dioxide 20 L Anion Gap 20 BUN 20 H Creatinine 1.4 H Est GFR ( Amer) 48 Est GFR (Non-Af Amer) 40 POC Glucose (mg/dL) Random Glucose 111 H Calcium 8.3 L Phosphorus Magnesium Iron TIBC % Saturation Ferritin Total Bilirubin 6.6 H AST 150 H ALT 26 Alkaline Phosphatase 253 H Ammonia Troponin I 0.0400 NT-Pro-B Natriuret Pep 806 Total Protein 8.6 H Albumin 3.6 Globulin 4.9 H Albumin/Globulin Ratio 0.7 L Triglycerides Cholesterol LDL Cholesterol Direct HDL Cholesterol Vitamin B12 TSH 3rd Generation Arterial Blood Potassium 4.7 Alcohol, Quantitative Influenza Typ A,B (EIA) 01/27/17 01/27/17 01/27/17 13:21 14:39 14:54 WBC RBC Hgb Hct MCV MCH MCHC RDW Plt Count MPV Neut % (Auto) Lymph % (Auto) Nash % (Auto) Eos % (Auto) Baso % (Auto) Neut # Lymph # Nash # Eos # Baso # Retic Count PT INR APTT pCO2 pO2 HCO3 ABG pH ABG Total CO2 ABG O2 Saturation ABG O2 Content ABG Base Excess ABG Hemoglobin ABG Carboxyhemoglobin POC ABG HHb (Measured) ABG Methemoglobin ABG O2 Capacity Dick Test ABG Potassium A-a O2 Difference Hgb O2 Saturation Sodium Chloride Glucose Lactate Liter Flow Vent Mode FiO2 Blood Gas Comments Crit Value Called To Crit Value Called By Crit Value Read Back Blood Gas Notified Time Potassium Carbon Dioxide Anion Gap BUN Creatinine Est GFR ( Amer) Est GFR (Non-Af Amer) POC Glucose (mg/dL) Random Glucose Calcium Phosphorus Magnesium Iron TIBC % Saturation Ferritin Total Bilirubin AST ALT Alkaline Phosphatase Ammonia Troponin I NT-Pro-B Natriuret Pep Total Protein Albumin Globulin Albumin/Globulin Ratio Triglycerides 187 H Cholesterol 174 LDL Cholesterol Direct 88 HDL Cholesterol 16 L Vitamin B12 TSH 3rd Generation 0.73 Arterial Blood Potassium Alcohol, Quantitative 73 H Influenza Typ A,B (EIA) Negative for flu a/b 01/27/17 01/27/17 01/27/17 15:45 17:20 18:15 WBC RBC Hgb Hct MCV MCH MCHC RDW Plt Count MPV Neut % (Auto) Lymph % (Auto) Nash % (Auto) Eos % (Auto) Baso % (Auto) Neut # Lymph # Nash # Eos # Baso # Retic Count PT 17.5 H INR 1.5 H APTT pCO2 42 pO2 92 HCO3 20.1 L ABG pH 7.29 L ABG Total CO2 21.5 L ABG O2 Saturation 98.5 H ABG O2 Content ABG Base Excess -6.1 L ABG Hemoglobin ABG Carboxyhemoglobin POC ABG HHb (Measured) ABG Methemoglobin ABG O2 Capacity Dick Test Yes ABG Potassium 4.5 A-a O2 Difference 283.0 Hgb O2 Saturation Sodium 137.0 Chloride 106.0 Glucose 126 H Lactate 2.5 H Liter Flow Vent Mode FiO2 60.0 Blood Gas Comments Lactate 2.5 Crit Value Called To keena Jackson Crit Value Called By 203 Crit Value Read Back Y Blood Gas Notified Time 1557 Potassium Carbon Dioxide Anion Gap BUN Creatinine Est GFR ( Amer) Est GFR (Non-Af Amer) POC Glucose (mg/dL) 124 H Random Glucose Calcium Phosphorus Magnesium Iron TIBC % Saturation Ferritin Total Bilirubin AST ALT Alkaline Phosphatase Ammonia Troponin I NT-Pro-B Natriuret Pep Total Protein Albumin Globulin Albumin/Globulin Ratio Triglycerides Cholesterol LDL Cholesterol Direct HDL Cholesterol Vitamin B12 TSH 3rd Generation Arterial Blood Potassium 4.5 Alcohol, Quantitative Influenza Typ A,B (EIA) 01/27/17 01/27/17 01/27/17 18:15 18:15 18:15 WBC RBC Hgb Hct MCV MCH MCHC RDW Plt Count MPV Neut % (Auto) Lymph % (Auto) Nash % (Auto) Eos % (Auto) Baso % (Auto) Neut # Lymph # Nash # Eos # Baso # Retic Count PT INR APTT 40.3 H pCO2 pO2 HCO3 ABG pH ABG Total CO2 ABG O2 Saturation ABG O2 Content ABG Base Excess ABG Hemoglobin ABG Carboxyhemoglobin POC ABG HHb (Measured) ABG Methemoglobin ABG O2 Capacity Dick Test ABG Potassium A-a O2 Difference Hgb O2 Saturation Sodium 138 Chloride 105 Glucose Lactate Liter Flow Vent Mode FiO2 Blood Gas Comments Crit Value Called To Crit Value Called By Crit Value Read Back Blood Gas Notified Time Potassium 4.7 Carbon Dioxide 20 L Anion Gap 18 BUN 20 H Creatinine 1.4 H Est GFR ( Amer) 48 Est GFR (Non-Af Amer) 40 POC Glucose (mg/dL) Random Glucose 113 H Calcium 8.1 L Phosphorus 5.4 H Magnesium 1.3 L Iron TIBC % Saturation Ferritin Total Bilirubin 5.9 H AST 124 H ALT 35 Alkaline Phosphatase 243 H Ammonia 51 Troponin I NT-Pro-B Natriuret Pep Total Protein 7.8 Albumin 3.1 L Globulin 4.6 H Albumin/Globulin Ratio 0.7 L Triglycerides Cholesterol LDL Cholesterol Direct HDL Cholesterol Vitamin B12 TSH 3rd Generation Arterial Blood Potassium Alcohol, Quantitative Influenza Typ A,B (EIA) 01/27/17 01/28/17 01/28/17 21:11 04:00 04:25 WBC 12.3 H RBC 2.84 L Hgb 9.9 L Hct 30.1 L MCV 105.9 H MCH 34.8 H MCHC 32.9 L RDW 16.0 H Plt Count 152 MPV Neut % (Auto) Lymph % (Auto) Nash % (Auto) Eos % (Auto) Baso % (Auto) Neut # Lymph # Nash # Eos # Baso # Retic Count 1.0 PT INR APTT pCO2 pO2 HCO3 ABG pH ABG Total CO2 ABG O2 Saturation ABG O2 Content ABG Base Excess ABG Hemoglobin ABG Carboxyhemoglobin POC ABG HHb (Measured) ABG Methemoglobin ABG O2 Capacity Dick Test ABG Potassium A-a O2 Difference Hgb O2 Saturation Sodium 141 Chloride 107 Glucose Lactate Liter Flow Vent Mode FiO2 Blood Gas Comments Crit Value Called To Crit Value Called By Crit Value Read Back Blood Gas Notified Time Potassium 4.4 Carbon Dioxide 22 Anion Gap 16 BUN 22 H Creatinine 1.1 Est GFR ( Amer) > 60 Est GFR (Non-Af Amer) 52 POC Glucose (mg/dL) 217 H Random Glucose 140 H Calcium 7.9 L Phosphorus Magnesium Iron TIBC % Saturation Ferritin Total Bilirubin 4.5 H AST 91 H D ALT 30 Alkaline Phosphatase 208 H Ammonia Troponin I NT-Pro-B Natriuret Pep Total Protein 7.7 Albumin 3.1 L Globulin 4.6 H Albumin/Globulin Ratio 0.7 L Triglycerides Cholesterol LDL Cholesterol Direct HDL Cholesterol Vitamin B12 TSH 3rd Generation Arterial Blood Potassium Alcohol, Quantitative Influenza Typ A,B (EIA) 01/28/17 01/28/17 01/28/17 04:25 04:25 05:13 WBC RBC Hgb Hct MCV MCH MCHC RDW Plt Count MPV Neut % (Auto) Lymph % (Auto) Nash % (Auto) Eos % (Auto) Baso % (Auto) Neut # Lymph # Nash # Eos # Baso # Retic Count PT INR APTT pCO2 38 pO2 90 HCO3 22.1 ABG pH 7.36 ABG Total CO2 22.7 ABG O2 Saturation 99.7 H ABG O2 Content 13.3 L ABG Base Excess -3.6 L ABG Hemoglobin 9.7 L ABG Carboxyhemoglobin 2.4 H POC ABG HHb (Measured) 0.3 ABG Methemoglobin 1.0 ABG O2 Capacity 13.3 L Dick Test Yes ABG Potassium A-a O2 Difference 290.0 Hgb O2 Saturation 96.4 Sodium Chloride Glucose Lactate Liter Flow 20 Vent Mode Hfov FiO2 60.0 Blood Gas Comments Crit Value Called To Crit Value Called By Crit Value Read Back Blood Gas Notified Time Potassium Carbon Dioxide Anion Gap BUN Creatinine Est GFR ( Amer) Est GFR (Non-Af Amer) POC Glucose (mg/dL) Random Glucose Calcium Phosphorus Magnesium Iron 69 TIBC 197 L % Saturation 35 Ferritin 268.0 H Total Bilirubin AST ALT Alkaline Phosphatase Ammonia Troponin I NT-Pro-B Natriuret Pep Total Protein Albumin Globulin Albumin/Globulin Ratio Triglycerides Cholesterol LDL Cholesterol Direct HDL Cholesterol Vitamin B12 755 TSH 3rd Generation Arterial Blood Potassium Alcohol, Quantitative Influenza Typ A,B (EIA) 01/28/17 07:37 WBC RBC Hgb Hct MCV MCH MCHC RDW Plt Count MPV Neut % (Auto) Lymph % (Auto) Nash % (Auto) Eos % (Auto) Baso % (Auto) Neut # Lymph # Nash # Eos # Baso # Retic Count PT INR APTT pCO2 pO2 HCO3 ABG pH ABG Total CO2 ABG O2 Saturation ABG O2 Content ABG Base Excess ABG Hemoglobin ABG Carboxyhemoglobin POC ABG HHb (Measured) ABG Methemoglobin ABG O2 Capacity Dick Test ABG Potassium A-a O2 Difference Hgb O2 Saturation Sodium Chloride Glucose Lactate Liter Flow Vent Mode FiO2 Blood Gas Comments Crit Value Called To Crit Value Called By Crit Value Read Back Blood Gas Notified Time Potassium Carbon Dioxide Anion Gap BUN Creatinine Est GFR ( Amer) Est GFR (Non-Af Amer) POC Glucose (mg/dL) 149 H Random Glucose Calcium Phosphorus Magnesium Iron TIBC % Saturation Ferritin Total Bilirubin AST ALT Alkaline Phosphatase Ammonia Troponin I NT-Pro-B Natriuret Pep Total Protein Albumin Globulin Albumin/Globulin Ratio Triglycerides Cholesterol LDL Cholesterol Direct HDL Cholesterol Vitamin B12 TSH 3rd Generation Arterial Blood Potassium Alcohol, Quantitative Influenza Typ A,B (EIA) EKG/Cardiology Studies: Cardiology / EKG Studies 01/27/17 12:50 ELECTROCARDIOGRAM Stat Comment: Mode Of Transportation: Reason For Exam: SOB 01/27/17 17:58 ELECTROCARDIOGRAM Stat Comment: Mode Of Transportation: Reason For Exam: Sepsis Patient Fingerstick Blood Sugar Results: 217 Review of Systems - Review of Systems All systems: reviewed and no additional remarkable complaints except (as above) Critical Care Progress Note - Nutrition Nutrition: Nutrition Category Date Time Status Regular Diet [DIET] Diets 01/27/17 Lunch Active
--- NOTE | 2017-01-28 13:03 | CARD ---
APPROVED REPORT EXAM: Two-dimensional and M-mode echocardiogram with Doppler and color Doppler. Other Information Quality : GoodRhythm : Tachycardia INDICATION Cardiomyopathy 2D DIMENSIONS IVSd0.81 (0.7-1.1cm)LVDd5.39 (3.9-5.9cm) LVOT Diameter2.08 (1.8-2.4cm)PWd0.96 (0.7-1.1cm) IVSs1.41 (0.8-1.2cm)LVDs3.01 (2.5-4.0cm) FS (%) 44.1 %PWs1.32 (0.8-1.2cm) M-Mode DIMENSIONS Left Atrium (MM)4.90 (2.5-4.0cm)IVSd1.09 (0.7-1.1cm) Aortic Root3.11 (2.2-3.7cm)LVDd5.46 (4.0-5.6cm) Aortic Cusp Exc.2.08 (1.5-2.0cm)PWd0.83 (0.7-1.1cm) IVSs1.46 cmFS (%) 41 % LVDs3.24 (2.0-3.8cm)PWs1.62 cm Mitral Valve E/A ratio0.0 TDI E/Lateral E'0.0E/Medial E'0.0 Pulmonary Valve PV Peak Tlgfpset147.7cm/s LEFT VENTRICLE The left ventricle is normal size. There is normal left ventricular wall thickness. Left ventricle systolic function is normal. The Ejection Fraction is 65-70%. There is normal LV segmental wall motion. Transmitral Doppler flow pattern is Grade I-abnormal relaxation pattern. RIGHT VENTRICLE The right ventricle is normal size. There is normal right ventricular wall thickness. The right ventricular systolic function is normal. ATRIA The left atrium size is normal. The right atrium size is normal. AORTIC VALVE The aortic valve is normal in structure. No aortic regurgitation is present. There is no aortic valvular stenosis. MITRAL VALVE The mitral valve is normal in structure. There is no evidence of mitral valve prolapse. There is no mitral valve stenosis. There is no mitral valve regurgitation noted. TRICUSPID VALVE The tricuspid valve is normal in structure. There is no tricuspid valve regurgitation noted. PULMONIC VALVE The pulmonary valve is normal in structure. There is no pulmonic valvular regurgitation. GREAT VESSELS The aortic root is normal in size. The IVC was not visualized. PERICARDIAL EFFUSION The pericardium appears normal. <Conclusion> Pt had a persistent sinus thachycardia during the entire study. The left ventricle is normal size. There is normal left ventricular wall thickness. There is normal LV segmental wall motion. Left ventricle systolic function is normal. The Ejection Fraction is 65-70%. Transmitral Doppler flow pattern is Grade I-abnormal relaxation pattern.
--- NOTE | 2017-01-28 14:01 | CP.PCM.CON ---
History of Present Illness - History of Present Illness History of Present Illness: 51 y/o female brought to ER for evaluation by EMS for facial and lower extremity swelling , SOB and lower back pain. As per patient developed fever chills and SOB yesterday with assoc swelling and cough She admits to having increased SOB with cough last couple of days, EMS was called and she was brought to ER where she was found to be in respiratory distress CXR showed bilateral infiltrates worse on the right admitted to ICU for sepsis and resp failure / pneumonia and alcohol intoxication Allergies;NKDA PMH; COPD , fatty liver, Chronic ETOH abuse ( daily 8 cups of 8 ounce vodka ) , smoker , chronic lower back pain , obese Medications; duonebs, prednisone, took Motrin and Advil PM last night Family history ; Mother had breast and lung cancer, father had throat cancer and thyroid problems Surgery ; none Social history ; lives in [place] with sister , single, has 1 child , heavy drinker , drinks vodka daily 8 cups of 8 ounce for more than 40 years, has been smoking since 13 years of age 1 1/2 ppd quit 1 year ago but still smokes one or 2 cigarets sometimes ( last cigarette was 2 days ago) Does not work is on disability, walks with no assist devices , denies drug abuse ( used cocaine more than 30 years ago ) Review of Systems - Constitutional Constitutional: As Per HPI - EENT Eyes: absent: As Per HPI, Blind Spots, Blurred Vision, Change in Vision, Decreased Night Vision, Diplopia, Discharge, Dry Eye, Exophthalmos, Floaters, Irritation, Itchy Eyes, Loss of Peripheral Vision, Pain, Photophobia, Requires Corrective Lenses, Sees Flashes, Spots in Vision, Tunnel Vision, Other Visual Disturbances, Loss of Vision, Other Ears: absent: As Per HPI, Decreased Hearing, Ear Discharge, Ear Pain, Tinnitus, Abnormal Hearing, Disequilibrium, Dizziness, Other Nose/Mouth/Throat: absent: As Per HPI, Epistaxis, Nasal Congestion, Nasal Discharge, Nasal Obstruction, Nasal Trauma, Nose Pain, Post Nasal Drip, Sinus Pain, Sinus Pressure, Bleeding Gums, Change in Voice, Dental Pain, Dry Mouth, Dysphagia, Halitosis, Hoarsness, Lip Swelling, Mouth Lesions, Mouth Pain, Odynophagia, Sore Throat, Throat Swelling, Tongue Swelling, Facial Pain, Neck Pain, Neck Mass, Other - Breasts Breasts: absent: As Per HPI, Change in Shape, Mass, Pain, Nipple Discharge, Nipple Inversion, Skin Changes, Swelling, Other - Cardiovascular Cardiovascular: As Per HPI - Respiratory Respiratory: As Per HPI, Cough, Dyspnea. absent: Hemoptysis - Gastrointestinal Gastrointestinal: absent: As Per HPI, Abdominal Pain, Belching, Bloating, Change in Bowel Habits, Change in Stool Character, Coffee Ground Emesis, Constipation, Cramping, Diarrhea, Dyspepsia, Dysphagia, Early Satiety, Excessive Flatus, Fecal Incontinence, Heartburn, Hematemesis, Hematochezia, Loose Stools, Melena, Nausea, Odynophagia, Temesmus, Vomiting, Other - Genitourinary Genitourinary: absent: As Per HPI, Change in Urinary Stream, Difficulty Urinating, Dysuria, Flank Pain, Hematuria, Pyuria, Nocturia, Urinary Incontinence, Urinary Frequency, Urinary Hesitance, Urinary Urgency, Voiding Freq/Small Amts, Freq UTI, Hx Renal/Bladder Calculi, Hx /Renal Surgery, Bladder Distension, Other - Reproductive: Female Reproductive:Female: absent: As Per HPI, Amenorrhea, Amenorrhea/ Control, Currently Menstual, Cycle <21 Days, Cycle >35 Days, Cycle Variable, Menses 1-7 Days, Menses >/= 8 Days, Menses Variable, Cycle > 4 Weeks Between, No Menses for 6 Months, Heavy Menses, Light Menses, Normal Menses, Spotting Between Cycles , S/P Hysterectomy, Menopausal, Post Menopausal, Premenarche, Abnormal Vaginal Bleeding, Dysmenorrhea, Dyspareunia, Genital Lesions, Genital Pruritis, Pelvic Pain, Prolapse Symptoms, Sexual Dysfunction, Vaginal Discharge, Vaginal Dryness , Vaginal Odor, Vaginal Pruritis, Other - Menstruation Menstruation: absent: As Per HPI, Amenorrhea, Amenorrhea/ Control, Currently Menstual, Cycle <21 Days, Cycle >35 Days, Cycle Variable, Menses 1-7 Days, Menses >/= 8 Days, Menses Variable, Cycle > 4 Weeks Between, No Menses for 6 Months, Heavy Menses, Light Menses, Normal Menses, Spotting Between Cycles , S/P Hysterectomy, Menopausal, Post Menopausal, Premenarche, Abnormal Vaginal Bleeding, Dysmenorrhea, Other - Musculoskeletal Musculoskeletal: As Per HPI - Integumentary Integumentary: absent: As Per HPI, Acne, Alopecia, Bleeding Lesions, Change in Hair, Change in Nails, Change in Pigmentation, Changing Lesions, Dry Skin, Erythema, Furuncle, Hirsutism, Lesions, New Lesions, Non-Healing Lesions, Photosensitivity, Pruritus, Rash, Skin Pain, Skin Ulcer, Sores, Striae, Swelling , Unusual Bruising, Wounds, Jaundice, Other - Neurological Neurological: absent: As Per HPI, Abnormal Gait, Abnormal Hearing, Abnormal Movements, Abnormal Speech, Behavioral Changes, Burning Sensations, Confusion, Convulsions, Disequilibrium, Dizziness, Numbness, Focal Weakness, Frequent Falls , Headaches, Lack of Coordination, Loss of Vision, Memory Loss, Paresthesias, Radicular Pain, Restless Legs, Sensory Deficit, Syncope, Tingling, Tremor, Vertigo, Weakness, Other Visual Disturbances, Other - Psychiatric Psychiatric: As Per HPI - Endocrine Endocrine: absent: As Per HPI, Change in Body Appearance, Change in Libido, Cold Intolorance, Deepening of Voice, Excessive Sweating, Fatigue, Flushing, Heat Intolorance, Increase in Ring/Shoe/Hat Size, Palpitations, Polydipsia, Polyphagia, Polyuria, Other - Hematologic/Lymphatic Hematologic: absent: As Per HPI, Easy Bleeding, Easy Bruising, Lymphadenopathy, Other Past Patient History - Infectious Disease Hx of Infectious Diseases: None - Tetanus Immunizations Tetanus Immunization: Unknown - Past Medical History & Family History Past Medical History?: Yes - Past Social History Smoking Status: Current Some Days Smoker Chewing Tobacco Use: No Cigar Use: No Alcohol: > 2 Drinks/Day Home Situation {Lives}: With Family Domestic Violence: Negative - CARDIAC Hx Cardiac Disorders: No - PULMONARY Hx Chronic Obstructive Pulmonary Disease (COPD): Yes - NEUROLOGICAL Hx Neurological Disorder: No - HEENT Hx HEENT Problems: No - RENAL Hx Chronic Kidney Disease: No - ENDOCRINE/METABOLIC Hx Endocrine Disorders: No - HEMATOLOGICAL/ONCOLOGICAL Hx Blood Disorders: No - INTEGUMENTARY Hx Dermatological Problems: No - MUSCULOSKELETAL/RHEUMATOLOGICAL Hx Back Pain: Yes (lower back pain ) - GASTROINTESTINAL Hx Fatty Liver Disease: Yes - GENITOURINARY/GYNECOLOGICAL Hx Genitourinary Disorders: No - PSYCHIATRIC Hx Substance Use: No - SURGICAL HISTORY Hx Surgeries: No - ANESTHESIA Hx Anesthesia: No Meds Allergies/Adverse Reactions: Allergies Allergy/AdvReac Type Severity Reaction Status Date / Time No Known Allergies Allergy Verified 01/27/17 12:43 - Medications Medications: Current Medications Acetaminophen (Tylenol 325mg Tab) 650 mg PO Q6H PRN PRN Reason: Pain, Mild (1-3) Last Admin: 01/27/17 20:33 Dose: 650 mg Acetaminophen (Tylenol 325mg Tab) 650 mg PO Q6H PRN PRN Reason: Fever >100.4 F Albuterol/Ipratropium (Duoneb 3 Mg/0.5 Mg (3 Ml) Ud) 3 ml INH RQ4 [facility] Last Admin: 01/28/17 11:32 Dose: 3 ml Chlordiazepoxide (Librium) 50 mg PO Q6 [facility] Last Admin: 01/28/17 09:59 Dose: 50 mg Diphenhydramine HCl (Benadryl) 50 mg IVP Q8 [facility] Stop: 01/30/17 01:01 Last Admin: 01/28/17 10:02 Dose: 50 mg Docusate Sodium (Colace) 100 mg PO BID PRN PRN Reason: Constipation Enoxaparin Sodium (Lovenox) 30 mg SC DAILY [facility] PRN Reason: Protocol Last Admin: 01/28/17 09:51 Dose: 30 mg Famotidine (Pepcid) 20 mg IVP Q12 [facility] Last Admin: 01/28/17 09:51 Dose: 20 mg Folic Acid (Folic Acid) 1 mg PO DAILY [facility] Last Admin: 01/28/17 09:52 Dose: 1 mg Vancomycin HCl 1 gm/ Sodium (Chloride) 250 mls @ 250 mls/hr IVPB ONCE [facility] PRN Reason: Protocol Last Admin: 01/27/17 14:46 Dose: 250 mls/hr Azithromycin 500 mg/ Sodium (Chloride) 250 mls @ 250 mls/hr IVPB DAILY [facility] PRN Reason: Protocol Last Admin: 01/28/17 09:53 Dose: 250 mls/hr Piperacillin Sod/Tazobactam (Sod 3.375 gm/ Sodium Chloride) 100 mls @ 100 mls/ hr IVPB Q8 [facility] PRN Reason: Protocol Last Admin: 01/28/17 09:54 Dose: 100 mls/hr Vancomycin HCl 1 gm/ Sodium (Chloride) 250 mls @ 166.667 mls/hr IVPB DAILY [facility] PRN Reason: Protocol Last Admin: 01/28/17 10:28 Dose: 166.667 mls/hr Sodium Chloride (Sodium Chloride 0.9%) 1,000 mls @ 100 mls/hr IV .Q10H [facility] Stop: 01/29/17 03:30 Last Admin: 01/28/17 07:00 Dose: 100 mls/hr Ketorolac Tromethamine (Toradol) 15 mg IVP Q6 PRN PRN Reason: Pain, moderate (4-7) Last Admin: 01/28/17 07:00 Dose: 15 mg Lorazepam (Ativan) 1 mg PO TID PRN PRN Reason: Agitation Methylprednisolone (Solu-Medrol) 40 mg IVP Q8H [facility] Last Admin: 01/28/17 09:50 Dose: 40 mg Morphine Sulfate (Morphine) 2 mg IVP Q6 PRN PRN Reason: Pain, severe (8-10) Last Admin: 01/28/17 10:27 Dose: 2 mg Multivitamins/Minerals (Therapeutic-M Tab) 1 tab PO DAILY [facility] Last Admin: 01/28/17 09:52 Dose: 1 tab Nicotine (Nicoderm Cq) 1 patch TD DAILY [facility] Last Admin: 01/28/17 09:52 Dose: 1 patch Ondansetron HCl (Zofran Inj) 4 mg IVP Q6H PRN PRN Reason: Nausea/Vomiting Thiamine HCl (Vitamin B1 Tab) 100 mg PO DAILY [facility] Last Admin: 01/28/17 09:52 Dose: 100 mg Physical Exam - Constitutional Appears: Non-toxic, Chronically Ill - Head Exam Head Exam: ATRAUMATIC, NORMAL INSPECTION, NORMOCEPHALIC - Eye Exam Eye Exam: PERRL. absent: Scleral icterus - ENT Exam ENT Exam: Mucous Membranes Dry, Normal External Ear Exam, Normal Oropharynx - Neck Exam Neck exam: Negative for: Lymphadenopathy, Thyromegaly - Respiratory Exam Respiratory Exam: Decreased Breath Sounds, Prolonged Expiratory Phase, Rhonchi, Wheezes - Cardiovascular Exam Cardiovascular Exam: REGULAR RHYTHM, +S1, +S2 - GI/Abdominal Exam GI & Abdominal Exam: Diminished Bowel Sounds, Distended, Soft. absent: Rebound , Tenderness - Rectal Exam Rectal Exam: Deferred - Exam Exam: NORMAL INSPECTION - Extremities Exam Extremities exam: Positive for: pedal edema, pedal pulses present. Negative for : calf tenderness, tenderness - Back Exam Back exam: absent: CVA tenderness (L), CVA tenderness (R) - Neurological Exam Neurological exam: Alert, CN II-XII Intact, Oriented x3, Reflexes Normal - Psychiatric Exam Psychiatric exam: Depressed - Skin Skin Exam: Dry, Intact Results - Vital Signs Recent Vital Signs: Last Vital Signs Temp 98.5 F 01/28/17 04:00 Pulse 96 H 01/28/17 07:00 Resp 12 01/28/17 13:02 BP 111/75 01/28/17 07:00 Pulse Ox 100 01/28/17 07:00 - Labs Result Diagrams: 01/28/17 04:25 01/28/17 04:00 Labs: Laboratory Results - last 24 hr 01/27/17 01/27/17 01/27/17 13:21 14:39 14:54 WBC RBC Hgb Hct MCV MCH MCHC RDW Plt Count Retic Count PT INR APTT pCO2 pO2 HCO3 ABG pH ABG Total CO2 ABG O2 Saturation ABG O2 Content ABG Base Excess ABG Hemoglobin ABG Carboxyhemoglobin POC ABG HHb (Measured) ABG Methemoglobin ABG O2 Capacity Dick Test ABG Potassium A-a O2 Difference Hgb O2 Saturation Sodium Chloride Glucose Lactate Liter Flow Vent Mode FiO2 Blood Gas Comments Crit Value Called To Crit Value Called By Crit Value Read Back Blood Gas Notified Time Potassium 5.8 H Carbon Dioxide Anion Gap 20 BUN 20 H Creatinine Est GFR ( Amer) Est GFR (Non-Af Amer) POC Glucose (mg/dL) Random Glucose Calcium Phosphorus Magnesium Iron TIBC % Saturation Ferritin Total Bilirubin 6.6 H AST 150 H ALT 26 Alkaline Phosphatase 253 H Ammonia Troponin I 0.0400 Total Protein 8.6 H Albumin 3.6 Globulin 4.9 H Albumin/Globulin Ratio 0.7 L Triglycerides 187 H Cholesterol 174 LDL Cholesterol Direct 88 HDL Cholesterol 16 L Vitamin B12 TSH 3rd Generation 0.73 Arterial Blood Potassium Alcohol, Quantitative 73 H 01/27/17 01/27/17 01/27/17 15:45 17:20 18:15 WBC RBC Hgb Hct MCV MCH MCHC RDW Plt Count Retic Count PT 17.5 H INR 1.5 H APTT pCO2 42 pO2 92 HCO3 20.1 L ABG pH 7.29 L ABG Total CO2 21.5 L ABG O2 Saturation 98.5 H ABG O2 Content ABG Base Excess -6.1 L ABG Hemoglobin ABG Carboxyhemoglobin POC ABG HHb (Measured) ABG Methemoglobin ABG O2 Capacity Dick Test Yes ABG Potassium 4.5 A-a O2 Difference 283.0 Hgb O2 Saturation Sodium 137.0 Chloride 106.0 Glucose 126 H Lactate 2.5 H Liter Flow Vent Mode FiO2 60.0 Blood Gas Comments Lactate 2.5 Crit Value Called To keena Jackson Crit Value Called By 203 Crit Value Read Back Y Blood Gas Notified Time 1557 Potassium Carbon Dioxide Anion Gap BUN Creatinine Est GFR ( Amer) Est GFR (Non-Af Amer) POC Glucose (mg/dL) 124 H Random Glucose Calcium Phosphorus Magnesium Iron TIBC % Saturation Ferritin Total Bilirubin AST ALT Alkaline Phosphatase Ammonia Troponin I Total Protein Albumin Globulin Albumin/Globulin Ratio Triglycerides Cholesterol LDL Cholesterol Direct HDL Cholesterol Vitamin B12 TSH 3rd Generation Arterial Blood Potassium 4.5 Alcohol, Quantitative 01/27/17 01/27/17 01/27/17 18:15 18:15 18:15 WBC RBC Hgb Hct MCV MCH MCHC RDW Plt Count Retic Count PT INR APTT 40.3 H pCO2 pO2 HCO3 ABG pH ABG Total CO2 ABG O2 Saturation ABG O2 Content ABG Base Excess ABG Hemoglobin ABG Carboxyhemoglobin POC ABG HHb (Measured) ABG Methemoglobin ABG O2 Capacity Dick Test ABG Potassium A-a O2 Difference Hgb O2 Saturation Sodium 138 Chloride 105 Glucose Lactate Liter Flow Vent Mode FiO2 Blood Gas Comments Crit Value Called To Crit Value Called By Crit Value Read Back Blood Gas Notified Time Potassium 4.7 Carbon Dioxide 20 L Anion Gap 18 BUN 20 H Creatinine 1.4 H Est GFR ( Amer) 48 Est GFR (Non-Af Amer) 40 POC Glucose (mg/dL) Random Glucose 113 H Calcium 8.1 L Phosphorus 5.4 H Magnesium 1.3 L Iron TIBC % Saturation Ferritin Total Bilirubin 5.9 H AST 124 H ALT 35 Alkaline Phosphatase 243 H Ammonia 51 Troponin I Total Protein 7.8 Albumin 3.1 L Globulin 4.6 H Albumin/Globulin Ratio 0.7 L Triglycerides Cholesterol LDL Cholesterol Direct HDL Cholesterol Vitamin B12 TSH 3rd Generation Arterial Blood Potassium Alcohol, Quantitative 01/27/17 01/28/17 01/28/17 21:11 04:00 04:25 WBC 12.3 H RBC 2.84 L Hgb 9.9 L Hct 30.1 L MCV 105.9 H MCH 34.8 H MCHC 32.9 L RDW 16.0 H Plt Count 152 Retic Count 1.0 PT INR APTT pCO2 pO2 HCO3 ABG pH ABG Total CO2 ABG O2 Saturation ABG O2 Content ABG Base Excess ABG Hemoglobin ABG Carboxyhemoglobin POC ABG HHb (Measured) ABG Methemoglobin ABG O2 Capacity Dick Test ABG Potassium A-a O2 Difference Hgb O2 Saturation Sodium 141 Chloride 107 Glucose Lactate Liter Flow Vent Mode FiO2 Blood Gas Comments Crit Value Called To Crit Value Called By Crit Value Read Back Blood Gas Notified Time Potassium 4.4 Carbon Dioxide 22 Anion Gap 16 BUN 22 H Creatinine 1.1 Est GFR ( Amer) > 60 Est GFR (Non-Af Amer) 52 POC Glucose (mg/dL) 217 H Random Glucose 140 H Calcium 7.9 L Phosphorus Magnesium Iron TIBC % Saturation Ferritin Total Bilirubin 4.5 H AST 91 H D ALT 30 Alkaline Phosphatase 208 H Ammonia Troponin I Total Protein 7.7 Albumin 3.1 L Globulin 4.6 H Albumin/Globulin Ratio 0.7 L Triglycerides Cholesterol LDL Cholesterol Direct HDL Cholesterol Vitamin B12 TSH 3rd Generation Arterial Blood Potassium Alcohol, Quantitative 01/28/17 01/28/17 01/28/17 04:25 04:25 05:13 WBC RBC Hgb Hct MCV MCH MCHC RDW Plt Count Retic Count PT INR APTT pCO2 38 pO2 90 HCO3 22.1 ABG pH 7.36 ABG Total CO2 22.7 ABG O2 Saturation 99.7 H ABG O2 Content 13.3 L ABG Base Excess -3.6 L ABG Hemoglobin 9.7 L ABG Carboxyhemoglobin 2.4 H POC ABG HHb (Measured) 0.3 ABG Methemoglobin 1.0 ABG O2 Capacity 13.3 L Dick Test Yes ABG Potassium A-a O2 Difference 290.0 Hgb O2 Saturation 96.4 Sodium Chloride Glucose Lactate Liter Flow 20 Vent Mode Hfov FiO2 60.0 Blood Gas Comments Crit Value Called To Crit Value Called By Crit Value Read Back Blood Gas Notified Time Potassium Carbon Dioxide Anion Gap BUN Creatinine Est GFR ( Amer) Est GFR (Non-Af Amer) POC Glucose (mg/dL) Random Glucose Calcium Phosphorus Magnesium Iron 69 TIBC 197 L % Saturation 35 Ferritin 268.0 H Total Bilirubin AST ALT Alkaline Phosphatase Ammonia Troponin I Total Protein Albumin Globulin Albumin/Globulin Ratio Triglycerides Cholesterol LDL Cholesterol Direct HDL Cholesterol Vitamin B12 755 TSH 3rd Generation Arterial Blood Potassium Alcohol, Quantitative 01/28/17 01/28/17 07:37 13:21 WBC RBC Hgb Hct MCV MCH MCHC RDW Plt Count Retic Count PT INR APTT pCO2 pO2 HCO3 ABG pH ABG Total CO2 ABG O2 Saturation ABG O2 Content ABG Base Excess ABG Hemoglobin ABG Carboxyhemoglobin POC ABG HHb (Measured) ABG Methemoglobin ABG O2 Capacity Dick Test ABG Potassium A-a O2 Difference Hgb O2 Saturation Sodium Chloride Glucose Lactate Liter Flow Vent Mode FiO2 Blood Gas Comments Crit Value Called To Crit Value Called By Crit Value Read Back Blood Gas Notified Time Potassium Carbon Dioxide Anion Gap BUN Creatinine Est GFR ( Amer) Est GFR (Non-Af Amer) POC Glucose (mg/dL) 149 H 166 H Random Glucose Calcium Phosphorus Magnesium Iron TIBC % Saturation Ferritin Total Bilirubin AST ALT Alkaline Phosphatase Ammonia Troponin I Total Protein Albumin Globulin Albumin/Globulin Ratio Triglycerides Cholesterol LDL Cholesterol Direct HDL Cholesterol Vitamin B12 TSH 3rd Generation Arterial Blood Potassium Alcohol, Quantitative Assessment & Plan (1) Bilateral pneumonia Status: Acute (2) COPD exacerbation Status: Acute (3) Respiratory distress Status: Acute (4) Severe sepsis Status: Acute (5) Alcohol abuse Status: Acute - Assessment and Plan (Free Text) Assessment: await cultures cont iv antiobiotics
--- NOTE | 2017-01-28 16:02 | US ---
PROCEDURE: Bilateral lower extremity venous duplex Doppler. HISTORY: r/o DVT COMPARISON: None available. TECHNIQUE: Bilateral common femoral, superficial femoral, popliteal and posterior tibial veins were evaluated. Flow was assessed with color Doppler, compressibility, assessment of phasic flow and augmentation response. FINDINGS: COMMON FEMORAL VEIN: Right CFV: Unremarkable. Left CFV: Unremarkable. SUPERFICIAL FEMORAL VEIN: Right SFV: Unremarkable. Left SFV: Unremarkable. POPLITEAL VEIN: Right Popliteal: Unremarkable. Left Popliteal: Unremarkable. POSTERIOR TIBIAL VEIN: Right PTV: Unremarkable. Left PTV: Unremarkable. OTHER FINDINGS: Bilateral calf edema. IMPRESSION: No evidence of deep venous thrombosis.
--- NOTE | 2017-01-28 16:06 | US ---
HISTORY: elevated Bilirubin and Alk phosph COMPARISON: None. TECHNIQUE: Sonographic evaluation of the right upper quadrant of the abdomen. FINDINGS: LIVER: Enlarged, measuring 21.1 cm in length. Increased echogenicity of the liver parenchyma. No mass. No intrahepatic bile duct dilatation. GALLBLADDER: Thickened wall. No gallstones. Pericholecystic fluid. COMMON BILE DUCT: Measures 4 mm. No stones. No dilatation. PANCREAS: Unremarkable as visualized. No mass. No ductal dilatation. RIGHT KIDNEY: Measures 11.2 x 4.6 x 4.4 cm in length. Normal echogenicity. No calculus, mass, or hydronephrosis. AORTA: No aneurysmal dilatation. IVC: Unremarkable. OTHER FINDINGS: Trace perihepatic ascites. IMPRESSION: Hepatomegaly with steatosis. Trace perihepatic ascites. Nonspecific gallbladder wall thickening. Gallbladder wall thickening is a nonspecific finding which can be seen with ascites, hepatitis, cholecystitis, CHF or hypoproteinemic states. Clinical correlation is recommended. If clinical concern for gallbladder pathology exists, a HIDA scan may be performed.
--- NOTE | 2017-01-28 21:29 | CP.PCM.CON ---
History of Present Illness - History of Present Illness History of Present Illness: Acute Resp Insuff COPD Ex / Tracheobronchitis. ETOH Abuse. Chronic Medical Conditions S/ Breathing better compared to when she came it. O: Afebrile, VSS Head: Neg Adeno, Pos TORRIE, Neg JVD Heart: RRR, ns1s2 Lungs: Distant BS. Abdo, Soft, NT Pos BS. Ext: No C,C, 2 + Edema LE Neuro: A * O times 3. Non Focal. Cont MV, maintain O2 Sat > 90% Cont IV Abx, monitor WBC#, temp curve and cultures. Cont Nebulized treatments. Cont Steroids. PUD and DVT px. Signing out of case; please reconsult prn. Past Patient History - Infectious Disease Hx of Infectious Diseases: None - Tetanus Immunizations Tetanus Immunization: Unknown - Past Medical History & Family History Past Medical History?: Yes - Past Social History Smoking Status: Current Some Days Smoker Chewing Tobacco Use: No Cigar Use: No Alcohol: > 2 Drinks/Day Home Situation {Lives}: With Family Domestic Violence: Negative - CARDIAC Hx Cardiac Disorders: No - PULMONARY Hx Chronic Obstructive Pulmonary Disease (COPD): Yes - NEUROLOGICAL Hx Neurological Disorder: No - HEENT Hx HEENT Problems: No - RENAL Hx Chronic Kidney Disease: No - ENDOCRINE/METABOLIC Hx Endocrine Disorders: No - HEMATOLOGICAL/ONCOLOGICAL Hx Blood Disorders: No - INTEGUMENTARY Hx Dermatological Problems: No - MUSCULOSKELETAL/RHEUMATOLOGICAL Hx Back Pain: Yes (lower back pain ) - GASTROINTESTINAL Hx Fatty Liver Disease: Yes - GENITOURINARY/GYNECOLOGICAL Hx Genitourinary Disorders: No - PSYCHIATRIC Hx Substance Use: No - SURGICAL HISTORY Hx Surgeries: No - ANESTHESIA Hx Anesthesia: No Meds Allergies/Adverse Reactions: Allergies Allergy/AdvReac Type Severity Reaction Status Date / Time No Known Allergies Allergy Verified 01/27/17 12:43 - Medications Medications: Current Medications Acetaminophen (Tylenol 325mg Tab) 650 mg PO Q6H PRN PRN Reason: Pain, Mild (1-3) Last Admin: 01/27/17 20:33 Dose: 650 mg Acetaminophen (Tylenol 325mg Tab) 650 mg PO Q6H PRN PRN Reason: Fever >100.4 F Albuterol/Ipratropium (Duoneb 3 Mg/0.5 Mg (3 Ml) Ud) 3 ml INH RQ4 [facility] Last Admin: 01/28/17 19:24 Dose: 3 ml Chlordiazepoxide (Librium) 50 mg PO Q6 [facility] Last Admin: 01/28/17 21:14 Dose: 50 mg Diphenhydramine HCl (Benadryl) 50 mg IVP Q8 [facility] Stop: 01/30/17 01:01 Last Admin: 01/28/17 17:18 Dose: 50 mg Docusate Sodium (Colace) 100 mg PO BID PRN PRN Reason: Constipation Enoxaparin Sodium (Lovenox) 30 mg SC DAILY [facility] PRN Reason: Protocol Last Admin: 01/28/17 09:51 Dose: 30 mg Famotidine (Pepcid) 20 mg IVP Q12 [facility] Last Admin: 01/28/17 21:14 Dose: 20 mg Folic Acid (Folic Acid) 1 mg PO DAILY [facility] Last Admin: 01/28/17 09:52 Dose: 1 mg Vancomycin HCl 1 gm/ Sodium (Chloride) 250 mls @ 250 mls/hr IVPB ONCE [facility] PRN Reason: Protocol Last Admin: 01/27/17 14:46 Dose: 250 mls/hr Azithromycin 500 mg/ Sodium (Chloride) 250 mls @ 250 mls/hr IVPB DAILY [facility] PRN Reason: Protocol Last Admin: 01/28/17 09:53 Dose: 250 mls/hr Piperacillin Sod/Tazobactam (Sod 3.375 gm/ Sodium Chloride) 100 mls @ 100 mls/ hr IVPB Q8 [facility] PRN Reason: Protocol Last Admin: 01/28/17 17:23 Dose: 100 mls/hr Vancomycin HCl 1 gm/ Sodium (Chloride) 250 mls @ 166.667 mls/hr IVPB DAILY [facility] PRN Reason: Protocol Last Admin: 01/28/17 10:28 Dose: 166.667 mls/hr Sodium Chloride (Sodium Chloride 0.9%) 1,000 mls @ 100 mls/hr IV .Q10H [facility] Stop: 01/29/17 03:30 Last Admin: 01/28/17 17:18 Dose: 100 mls/hr Ketorolac Tromethamine (Toradol) 15 mg IVP Q6 PRN PRN Reason: Pain, moderate (4-7) Last Admin: 01/28/17 18:35 Dose: 15 mg Lorazepam (Ativan) 1 mg PO TID PRN PRN Reason: Agitation Methylprednisolone (Solu-Medrol) 40 mg IVP Q8H [facility] Last Admin: 01/28/17 17:15 Dose: 40 mg Morphine Sulfate (Morphine) 2 mg IVP Q6 PRN PRN Reason: Pain, severe (8-10) Last Admin: 01/28/17 10:27 Dose: 2 mg Multivitamins/Minerals (Therapeutic-M Tab) 1 tab PO DAILY [facility] Last Admin: 01/28/17 09:52 Dose: 1 tab Nicotine (Nicoderm Cq) 1 patch TD DAILY [facility] Last Admin: 01/28/17 09:52 Dose: 1 patch Ondansetron HCl (Zofran Inj) 4 mg IVP Q6H PRN PRN Reason: Nausea/Vomiting Thiamine HCl (Vitamin B1 Tab) 100 mg PO DAILY [facility] Last Admin: 01/28/17 09:52 Dose: 100 mg Results - Vital Signs Recent Vital Signs: Last Vital Signs Temp 97.5 F L 01/28/17 16:00 Pulse 104 H 01/28/17 18:00 Resp 22 01/28/17 19:32 BP 102/64 01/28/17 18:00 Pulse Ox 100 01/28/17 18:00 - Labs Result Diagrams: 01/28/17 04:25 01/28/17 04:00 Labs: Laboratory Results - last 24 hr 01/28/17 01/28/17 01/28/17 04:00 04:25 04:25 WBC 12.3 H RBC 2.84 L Hgb 9.9 L Hct 30.1 L MCV 105.9 H MCH 34.8 H MCHC 32.9 L RDW 16.0 H Plt Count 152 Retic Count 1.0 pCO2 pO2 HCO3 ABG pH ABG Total CO2 ABG O2 Saturation ABG O2 Content ABG Base Excess ABG Hemoglobin ABG Carboxyhemoglobin POC ABG HHb (Measured) ABG Methemoglobin ABG O2 Capacity Dick Test A-a O2 Difference Hgb O2 Saturation Liter Flow Vent Mode FiO2 Sodium 141 Potassium 4.4 Chloride 107 Carbon Dioxide 22 Anion Gap 16 BUN 22 H Creatinine 1.1 Est GFR ( Amer) > 60 Est GFR (Non-Af Amer) 52 POC Glucose (mg/dL) Random Glucose 140 H Calcium 7.9 L Iron 69 TIBC 197 L % Saturation 35 Transferrin Ferritin Total Bilirubin 4.5 H AST 91 H D ALT 30 Alkaline Phosphatase 208 H Total Protein 7.7 Albumin 3.1 L Globulin 4.6 H Albumin/Globulin Ratio 0.7 L Vitamin B12 01/28/17 01/28/17 01/28/17 04:25 04:25 05:13 WBC RBC Hgb Hct MCV MCH MCHC RDW Plt Count Retic Count pCO2 38 pO2 90 HCO3 22.1 ABG pH 7.36 ABG Total CO2 22.7 ABG O2 Saturation 99.7 H ABG O2 Content 13.3 L ABG Base Excess -3.6 L ABG Hemoglobin 9.7 L ABG Carboxyhemoglobin 2.4 H POC ABG HHb (Measured) 0.3 ABG Methemoglobin 1.0 ABG O2 Capacity 13.3 L Dick Test Yes A-a O2 Difference 290.0 Hgb O2 Saturation 96.4 Liter Flow 20 Vent Mode Hfov FiO2 60.0 Sodium Potassium Chloride Carbon Dioxide Anion Gap BUN Creatinine Est GFR ( Amer) Est GFR (Non-Af Amer) POC Glucose (mg/dL) Random Glucose Calcium Iron TIBC % Saturation Transferrin 124.20 L Ferritin 268.0 H Total Bilirubin AST ALT Alkaline Phosphatase Total Protein Albumin Globulin Albumin/Globulin Ratio Vitamin B12 755 01/28/17 01/28/17 01/28/17 07:37 13:21 16:47 WBC RBC Hgb Hct MCV MCH MCHC RDW Plt Count Retic Count pCO2 pO2 HCO3 ABG pH ABG Total CO2 ABG O2 Saturation ABG O2 Content ABG Base Excess ABG Hemoglobin ABG Carboxyhemoglobin POC ABG HHb (Measured) ABG Methemoglobin ABG O2 Capacity Dick Test A-a O2 Difference Hgb O2 Saturation Liter Flow Vent Mode FiO2 Sodium Potassium Chloride Carbon Dioxide Anion Gap BUN Creatinine Est GFR ( Amer) Est GFR (Non-Af Amer) POC Glucose (mg/dL) 149 H 166 H 142 H Random Glucose Calcium Iron TIBC % Saturation Transferrin Ferritin Total Bilirubin AST ALT Alkaline Phosphatase Total Protein Albumin Globulin Albumin/Globulin Ratio Vitamin B12
[2017-01-29] MEDS: Sodium Chloride 0.9% 1,000 ML IV SCH (01:41)
[2017-01-29] MEDS: MethylPREDNISolone 40 mg Vial IVP SCH ×2 (01:45→09:28)
[2017-01-29] MEDS: Piperacillin/Tazobact 3.375 GM in Sodium Chloride 0.9% 100 ML IVPB SCH ×3 (01:45→16:08)
[2017-01-29] MEDS: DiphenhydrAMINE 50 mg/ml Inj IVP SCH ×2 (01:47→09:26)
[2017-01-29] MEDS: Albuterol-Ipratrop 3 mg / 0.5 (3 ml) UD INH SCH ×6 (04:53→23:28)
[2017-01-29 06:45] LABS: BASO % 0.2 % (0.0-2.0); HEMATOCRIT 27.5 % (34.0-47.0); LYMPH # 0.8 K/uL (1.0-4.3); LYMPH % 7.4 % (20.0-40.0); MEAN CELL VOLUME 105.2 fl (81.0-99.0); MEAN CORPUSCULAR HEMOGLOBIN 34.8 pg (27.0-31.0); MEAN CORPUSCULAR HGB CONC 33.1 g/dL (33.0-37.0); MEAN PLATELET VOLUME 8.4 fl (7.2-11.7); MONO # 0.3 K/uL (0.0-0.8); MONO % 2.6 % (0.0-10.0); NEUT # 10.1 K/uL (1.8-7.0); NEUT % 89.8 % (50.0-75.0); NRBC % 0.1 % (0.0-0.0); PLATELET COUNT 140 K/uL (130-400); RED CELL DISTRIBUTION WIDTH 15.6 % (11.5-14.5); WHITE BLOOD COUNT 11.3 K/uL (4.8-10.8)
[2017-01-29 07:01] LABS: ALB/GLOB RATIO 0.7 (1.0-2.1); BILIRUBIN,TOTAL 2.9 mg/dl (0.2-1.3); CALCIUM 8.1 mg/dL (8.4-10.2); POTASSIUM 4.2 MMOL/L (3.6-5.0); TOTAL PROTEIN 7.3 G/DL (6.3-8.2)
--- NOTE | 2017-01-29 08:39 | CP.CCUPN ---
CCU Subjective - Physician Review Events Since Last Encounter (Free Text): 01/29/17 08:37 Patient awake, on high flow O2 supplement, no chest pain, no fever, no pressor, events reviewed CCU Objective - Vital Signs / Intake & Output Vital Signs (Last 4 hours): Vital Signs Temp Pulse Resp BP Pulse Ox 01/29/17 08:15 24 01/29/17 06:11 22 01/29/17 06:00 97.8 F 84 14 125/80 98 Intake and Output (Last 8hrs): Intake & Output 01/28/17 01/29/17 01/29/17 22:59 06:59 14:59 Intake Total 800 600 Balance 800 600 Intake: IV 700 600 Intake, Piggyback 100 Other: # Bowel Movements 1 - Physical Exam Head: Positive for: Atraumatic, Normocephalic Pupils: Positive for: PERRL Extroacular Muscles: Positive for: EOMI. Negative for: Gaze Palsy Conjunctiva: Positive for: Icteric Mouth: Positive for: Moist Mucous Membranes Pharnyx: Positive for: Normal Neck: Negative for: JVD, Lymphadenopathy Respiratory/Chest: Positive for: Wheezes, Decreased Breath Sounds. Negative for : Accessory Muscle Use Cardiovascular: Positive for: Regular Rate and Rhythm, Tachycardic. Negative for: Murmurs, Rub Abdomen: Positive for: Normal Bowel Sounds, Other (obese). Negative for: Tenderness, Distention, Mass/Organomegaly Lower Extremity: Positive for: Edema, NORMAL PULSES. Negative for: CALF TENDERNESS, Cyanosis Neurological: Positive for: GCS=15, Motor Func Grossly Intact, Normal Sensory Function Skin: Positive for: Warm, Dry, Other (3 ecchymotic areas along Right lateral back area). Negative for: Rashes Psychiatric: Positive for: Alert, Oriented x 3 - Medications Active Medications: Active Medications Generic Name Dose Route Start Last Admin Trade Name Freq PRN Reason Stop Dose Admin Acetaminophen 650 mg 01/27/17 16:27 01/27/17 20:33 Tylenol 325mg Tab PO 650 mg Q6H PRN Administration Pain, Mild (1-3) Acetaminophen 650 mg 01/27/17 16:27 Tylenol 325mg Tab PO Q6H PRN Fever >100.4 F Albuterol/Ipratropium 3 ml 01/27/17 20:00 01/29/17 08:15 Duoneb 3 Mg/0.5 Mg (3 Ml) Ud INH 3 ml RQ4 [facility] Administration Chlordiazepoxide 50 mg 01/27/17 22:00 01/29/17 04:09 Librium PO 50 mg Q6 [facility] Administration Diphenhydramine HCl 50 mg 01/28/17 01:00 01/29/17 01:47 Benadryl IVP 01/30/17 01:01 50 mg Q8 [facility] Administration Docusate Sodium 100 mg 01/27/17 16:27 Colace PO BID PRN Constipation Enoxaparin Sodium 30 mg 01/28/17 09:00 01/28/17 09:51 Lovenox SC 30 mg DAILY [facility] Administration Protocol Famotidine 20 mg 01/27/17 21:00 01/28/17 21:14 Pepcid IVP 20 mg Q12 [facility] Administration Folic Acid 1 mg 01/28/17 09:00 01/28/17 09:52 Folic Acid PO 1 mg DAILY [facility] Administration Vancomycin HCl 1 gm/ Sodium 250 mls @ 250 mls/hr 01/27/17 14:15 01/27/17 14: 46 Chloride IVPB 250 mls/hr ONCE [facility] Administration Protocol Azithromycin 500 mg/ Sodium 250 mls @ 250 mls/hr 01/28/17 09:00 01/28/17 09: 53 Chloride IVPB 250 mls/hr DAILY [facility] Administration Protocol Piperacillin Sod/Tazobactam 100 mls @ 100 mls/hr 01/27/17 17:00 01/29/17 01: 45 Sod 3.375 gm/ Sodium Chloride IVPB 100 mls/hr Q8 [facility] Administration Protocol Vancomycin HCl 1 gm/ Sodium 250 mls @ 166.667 mls/hr 01/28/17 09:00 01/28/17 10:28 Chloride IVPB 166.667 mls/hr DAILY [facility] Administration Protocol Ketorolac Tromethamine 15 mg 01/27/17 18:00 01/28/17 18:35 Toradol IVP 15 mg Q6 PRN Administration Pain, moderate (4-7) Lorazepam 1 mg 01/27/17 17:20 01/29/17 08:01 Ativan PO 1 mg TID PRN Administration Agitation Methylprednisolone 40 mg 01/27/17 16:45 01/29/17 01:45 Solu-Medrol IVP 40 mg Q8H [facility] Administration Morphine Sulfate 2 mg 01/27/17 18:00 01/28/17 10:27 Morphine IVP 2 mg Q6 PRN Administration Pain, severe (8-10) Multivitamins/Minerals 1 tab 01/28/17 09:00 01/28/17 09:52 Therapeutic-M Tab PO 1 tab DAILY [facility] Administration Nicotine 1 patch 01/28/17 09:00 01/28/17 09:52 Nicoderm Cq TD 1 patch DAILY [facility] Administration Ondansetron HCl 4 mg 01/27/17 16:27 Zofran Inj IVP Q6H PRN Nausea/Vomiting Thiamine HCl 100 mg 01/28/17 09:00 01/28/17 09:52 Vitamin B1 Tab PO 100 mg DAILY [facility] Administration - Patient Studies Lab Studies: Microbiology Studies 01/28/17 12:16 Gram Stain - Final Sputum Lab Studies 01/29/17 01/29/17 01/28/17 Range/Units 05:30 05:30 21:23 WBC 11.3 H (4.8-10.8) K/uL RBC 2.61 L (3.80-5.20) Mil/uL Hgb 9.1 L (12.0-16.0) g/dL Hct 27.5 L (34.0-47.0) % MCV 105.2 H (81.0-99.0) fl MCH 34.8 H (27.0-31.0) pg MCHC 33.1 (33.0-37.0) g/dL RDW 15.6 H (11.5-14.5) % Plt Count 140 (130-400) K/uL MPV 8.4 (7.2-11.7) fl Neut % (Auto) 89.8 H (50.0-75.0) % Lymph % (Auto) 7.4 L (20.0-40.0) % [place] % (Auto) 2.6 (0.0-10.0) % Eos % (Auto) 0.0 (0.0-4.0) % Baso % (Auto) 0.2 (0.0-2.0) % Neut # 10.1 H (1.8-7.0) K/uL Lymph # 0.8 L (1.0-4.3) K/uL [place] # 0.3 (0.0-0.8) K/uL Eos # 0.0 (0.0-0.7) K/uL Baso # 0.0 (0.0-0.2) K/uL Sodium 141 (132-148) mmol/l Potassium 4.2 (3.6-5.0) MMOL/L Chloride 109 H (98-107) mmol/L Carbon Dioxide 23 (22-30) mmol/L Anion Gap 13 (10-20) BUN 31 H (7-17) mg/dl Creatinine 1.3 H (0.7-1.2) mg/dl Est GFR ( Amer) 52 Est GFR (Non-Af Amer) 43 POC Glucose (mg/dL) 177 H (65-110) mg/dL Random Glucose 132 H (65-105) mg/dL Calcium 8.1 L (8.4-10.2) mg/dL Transferrin (206-381) mg/dL Total Bilirubin 2.9 H (0.2-1.3) mg/dl AST 70 H D (14-36) U/L ALT 35 (9-52) U/L Alkaline Phosphatase 155 H D (38-126) U/L Total Protein 7.3 (6.3-8.2) G/DL Albumin 3.0 L (3.5-5.0) g/dL Globulin 4.4 H (2.2-3.9) gm/dL Albumin/Globulin Ratio 0.7 L (1.0-2.1) 01/28/17 01/28/17 01/28/17 Range/Units 16:47 13:21 04:25 WBC (4.8-10.8) K/uL RBC (3.80-5.20) Mil/uL Hgb (12.0-16.0) g/dL Hct (34.0-47.0) % MCV (81.0-99.0) fl MCH (27.0-31.0) pg MCHC (33.0-37.0) g/dL RDW (11.5-14.5) % Plt Count (130-400) K/uL MPV (7.2-11.7) fl Neut % (Auto) (50.0-75.0) % Lymph % (Auto) (20.0-40.0) % [place] % (Auto) (0.0-10.0) % Eos % (Auto) (0.0-4.0) % Baso % (Auto) (0.0-2.0) % Neut # (1.8-7.0) K/uL Lymph # (1.0-4.3) K/uL [place] # (0.0-0.8) K/uL Eos # (0.0-0.7) K/uL Baso # (0.0-0.2) K/uL Sodium (132-148) mmol/l Potassium (3.6-5.0) MMOL/L Chloride (98-107) mmol/L Carbon Dioxide (22-30) mmol/L Anion Gap (10-20) BUN (7-17) mg/dl Creatinine (0.7-1.2) mg/dl Est GFR ( Amer) Est GFR (Non-Af Amer) POC Glucose (mg/dL) 142 H 166 H (65-110) mg/dL Random Glucose (65-105) mg/dL Calcium (8.4-10.2) mg/dL Transferrin 124.20 L (206-381) mg/dL Total Bilirubin (0.2-1.3) mg/dl AST (14-36) U/L ALT (9-52) U/L Alkaline Phosphatase (38-126) U/L Total Protein (6.3-8.2) G/DL Albumin (3.5-5.0) g/dL Globulin (2.2-3.9) gm/dL Albumin/Globulin Ratio (1.0-2.1) 01/28/17 Range/Units 04:00 WBC (4.8-10.8) K/uL RBC (3.80-5.20) Mil/uL Hgb (12.0-16.0) g/dL Hct (34.0-47.0) % MCV (81.0-99.0) fl MCH (27.0-31.0) pg MCHC (33.0-37.0) g/dL RDW (11.5-14.5) % Plt Count (130-400) K/uL MPV (7.2-11.7) fl Neut % (Auto) (50.0-75.0) % Lymph % (Auto) (20.0-40.0) % [place] % (Auto) (0.0-10.0) % Eos % (Auto) (0.0-4.0) % Baso % (Auto) (0.0-2.0) % Neut # (1.8-7.0) K/uL Lymph # (1.0-4.3) K/uL [place] # (0.0-0.8) K/uL Eos # (0.0-0.7) K/uL Baso # (0.0-0.2) K/uL Sodium 141 (132-148) mmol/l Potassium 4.4 (3.6-5.0) MMOL/L Chloride 107 (98-107) mmol/L Carbon Dioxide 22 (22-30) mmol/L Anion Gap 16 (10-20) BUN 22 H (7-17) mg/dl Creatinine 1.1 (0.7-1.2) mg/dl Est GFR ( Amer) > 60 Est GFR (Non-Af Amer) 52 POC Glucose (mg/dL) (65-110) mg/dL Random Glucose 140 H (65-105) mg/dL Calcium 7.9 L (8.4-10.2) mg/dL Transferrin (206-381) mg/dL Total Bilirubin 4.5 H (0.2-1.3) mg/dl AST 91 H D (14-36) U/L ALT 30 (9-52) U/L Alkaline Phosphatase 208 H (38-126) U/L Total Protein 7.7 (6.3-8.2) G/DL Albumin 3.1 L (3.5-5.0) g/dL Globulin 4.6 H (2.2-3.9) gm/dL Albumin/Globulin Ratio 0.7 L (1.0-2.1) Laboratory Results - last 24 hr 01/28/17 01/28/17 01/28/17 04:00 04:25 13:21 WBC RBC Hgb Hct MCV MCH MCHC RDW Plt Count MPV Neut % (Auto) Lymph % (Auto) [place] % (Auto) Eos % (Auto) Baso % (Auto) Neut # Lymph # [place] # Eos # Baso # Sodium 141 Potassium 4.4 Chloride 107 Carbon Dioxide 22 Anion Gap 16 BUN 22 H Creatinine 1.1 Est GFR ( Amer) > 60 Est GFR (Non-Af Amer) 52 POC Glucose (mg/dL) 166 H Random Glucose 140 H Calcium 7.9 L Transferrin 124.20 L Total Bilirubin 4.5 H AST 91 H D ALT 30 Alkaline Phosphatase 208 H Total Protein 7.7 Albumin 3.1 L Globulin 4.6 H Albumin/Globulin Ratio 0.7 L 01/28/17 01/28/17 01/29/17 16:47 21:23 05:30 WBC 11.3 H RBC 2.61 L Hgb 9.1 L Hct 27.5 L MCV 105.2 H MCH 34.8 H MCHC 33.1 RDW 15.6 H Plt Count 140 MPV 8.4 Neut % (Auto) 89.8 H Lymph % (Auto) 7.4 L [place] % (Auto) 2.6 Eos % (Auto) 0.0 Baso % (Auto) 0.2 Neut # 10.1 H Lymph # 0.8 L [place] # 0.3 Eos # 0.0 Baso # 0.0 Sodium Potassium Chloride Carbon Dioxide Anion Gap BUN Creatinine Est GFR ( Amer) Est GFR (Non-Af Amer) POC Glucose (mg/dL) 142 H 177 H Random Glucose Calcium Transferrin Total Bilirubin AST ALT Alkaline Phosphatase Total Protein Albumin Globulin Albumin/Globulin Ratio 01/29/17 05:30 WBC RBC Hgb Hct MCV MCH MCHC RDW Plt Count MPV Neut % (Auto) Lymph % (Auto) [place] % (Auto) Eos % (Auto) Baso % (Auto) Neut # Lymph # [place] # Eos # Baso # Sodium 141 Potassium 4.2 Chloride 109 H Carbon Dioxide 23 Anion Gap 13 BUN 31 H Creatinine 1.3 H Est GFR ( Amer) 52 Est GFR (Non-Af Amer) 43 POC Glucose (mg/dL) Random Glucose 132 H Calcium 8.1 L Transferrin Total Bilirubin 2.9 H AST 70 H D ALT 35 Alkaline Phosphatase 155 H D Total Protein 7.3 Albumin 3.0 L Globulin 4.4 H Albumin/Globulin Ratio 0.7 L Fingerstick Blood Sugar Results: 177 Critical Care Progress Note - Nutrition Nutrition: Nutrition Category Date Time Status Regular Diet [DIET] Diets 01/27/17 Lunch Active Assessment/Plan - Assessment and Plan (Free Text) Assessment: A/P Respiratory failure, rigoberto pneumonia, sepsis, obesity, COPD, ?MOLLY, ?pulmonary hypertension, fatty liver, elevated rigoberto/LFTs, chronic ETOH abuse, anemia, hyperkalemia - High flow O2 supplement - Pulmonary toilets - Continue meds - DVT prophylaxis critical care 35 min
[2017-01-29] MEDS: Enoxaparin 30 mg Syringe SC SCH (09:27)
[2017-01-29] MEDS: Multivitamin With Minerals Tab PO SCH (09:28)
[2017-01-29] MEDS: Azithromycin 500 MG in Sodium Chloride 0.9% 250 ML IVPB SCH (09:29)
[2017-01-29 11:07] LABS: NEUTROPHIL 92 % (42-75); TOTAL CELLS COUNTED 100
[2017-01-29 11:08] LABS: LARGE PLATELETS PRESENT
--- NOTE | 2017-01-29 13:42 | CP.PCM.PN ---
Subjective - Date & Time of Evaluation Date of Evaluation: 01/29/17 Time of Evaluation: 12:30 - Subjective Subjective: Patient was seen and examined bedside.Obese female, lying in bed on high flow O2 via NC 20 LPM FIo2 60 % saturating 100 % , BP 106/51 HR 85 RR 13 Patient appears somewhat sedated and confused but awake, alert and oriented to place person and time. Her breathing is better and facial and periorbital swelling has resolved .Complains of calf pains.No acute issues overnight. WBC 11 k HGb 9.1 plt 140 K BUN/Cr 31/1.3 Objective - Vital Signs/Intake and Output Vital Signs (last 24 hours): Temp Pulse Resp BP Pulse Ox 98.4 F 85 13 106/51 L 100 01/29/17 12:00 01/29/17 12:00 01/29/17 12:00 01/29/17 12:00 01/29/17 12:00 Intake and Output: 01/29/17 01/29/17 06:59 18:59 Intake Total 1000 120 Balance 1000 120 - Medications Medications: Current Medications Acetaminophen (Tylenol 325mg Tab) 650 mg PO Q6H PRN PRN Reason: Pain, Mild (1-3) Last Admin: 01/27/17 20:33 Dose: 650 mg Acetaminophen (Tylenol 325mg Tab) 650 mg PO Q6H PRN PRN Reason: Fever >100.4 F Albuterol/Ipratropium (Duoneb 3 Mg/0.5 Mg (3 Ml) Ud) 3 ml INH RQ4 [facility] Last Admin: 01/29/17 11:36 Dose: 3 ml Chlordiazepoxide (Librium) 50 mg PO Q6 [facility] Diphenhydramine HCl (Benadryl) 50 mg IVP Q8 [facility] Stop: 01/30/17 01:01 Last Admin: 01/29/17 09:26 Dose: Not Given Docusate Sodium (Colace) 100 mg PO BID PRN PRN Reason: Constipation Enoxaparin Sodium (Lovenox) 30 mg SC DAILY [facility] PRN Reason: Protocol Last Admin: 01/29/17 09:27 Dose: 30 mg Famotidine (Pepcid) 20 mg IVP Q12 [facility] Last Admin: 01/29/17 09:27 Dose: 20 mg Folic Acid (Folic Acid) 1 mg PO DAILY [facility] Last Admin: 01/29/17 09:27 Dose: 1 mg Azithromycin 500 mg/ Sodium (Chloride) 250 mls @ 250 mls/hr IVPB DAILY [facility] PRN Reason: Protocol Last Admin: 01/29/17 09:29 Dose: 250 mls/hr Piperacillin Sod/Tazobactam (Sod 3.375 gm/ Sodium Chloride) 100 mls @ 100 mls/ hr IVPB Q8 [facility] PRN Reason: Protocol Last Admin: 01/29/17 09:30 Dose: 100 mls/hr Vancomycin HCl 1 gm/ Sodium (Chloride) 250 mls @ 166.667 mls/hr IVPB DAILY [facility] PRN Reason: Protocol Last Admin: 01/29/17 09:28 Dose: 166.667 mls/hr Ketorolac Tromethamine (Toradol) 15 mg IVP Q6 PRN PRN Reason: Pain, moderate (4-7) Last Admin: 01/28/17 18:35 Dose: 15 mg Lorazepam (Ativan) 1 mg PO TID PRN PRN Reason: Agitation Last Admin: 01/29/17 08:01 Dose: 1 mg Methylprednisolone (Solu-Medrol) 40 mg IVP Q8H [facility] Last Admin: 01/29/17 09:28 Dose: 40 mg Morphine Sulfate (Morphine) 2 mg IVP Q6 PRN PRN Reason: Pain, severe (8-10) Last Admin: 01/29/17 09:25 Dose: 2 mg Multivitamins/Minerals (Therapeutic-M Tab) 1 tab PO DAILY [facility] Last Admin: 01/29/17 09:28 Dose: 1 tab Nicotine (Nicoderm Cq) 1 patch TD DAILY [facility] Last Admin: 01/29/17 09:25 Dose: 1 patch Ondansetron HCl (Zofran Inj) 4 mg IVP Q6H PRN PRN Reason: Nausea/Vomiting Thiamine HCl (Vitamin B1 Tab) 100 mg PO DAILY [facility] Last Admin: 01/29/17 09:29 Dose: 100 mg - Labs Labs: 01/29/17 05:30 01/29/17 05:30 PT 17.5 Seconds (9.8-13.1) H 01/27/17 18:15 INR 1.5 (0.9-1.2) H 01/27/17 18:15 APTT 40.3 Seconds (25.6-37.1) H 01/27/17 18:15 - Constitutional Appears: Non-toxic, No Acute Distress, Older Than Stated Age, Confused, Chronically Ill, Other (obese) - Head Exam Head Exam: ATRAUMATIC, NORMAL INSPECTION, NORMOCEPHALIC - Eye Exam Eye Exam: EOMI, PERRL. absent: Periorbital swelling Pupil Exam: NORMAL ACCOMODATION, PERRL - ENT Exam ENT Exam: Mucous Membranes Moist, Normal Exam - Neck Exam Neck Exam: Full ROM, Normal Inspection - Respiratory Exam Respiratory Exam: Clear to Ausculation Bilateral, Prolonged Expiratory Phase, Rhonchi, NORMAL BREATHING PATTERN. absent: Accessory Muscle Use, Wheezes, Respiratory Distress - Cardiovascular Exam Cardiovascular Exam: REGULAR RHYTHM, RRR, +S1, +S2. absent: JVD - GI/Abdominal Exam GI & Abdominal Exam: Soft, Normal Bowel Sounds. absent: Distended, Guarding, Tenderness, Rebound - Rectal Exam Rectal Exam: Deferred - Extremities Exam Extremities Exam: Full ROM, Normal Capillary Refill, Normal Inspection, Pedal Edema (2 + LE ). absent: Calf Tenderness - Back Exam Back Exam: NORMAL INSPECTION - Neurological Exam Neurological Exam: Alert, Awake, CN II-XII Intact, Oriented x3 Additional comments: confused , sedated - Psychiatric Exam Psychiatric exam: Anxious, Flat Affect - Skin Skin Exam: Dry, Pallor, Warm Assessment and Plan - Assessment and Plan (Free Text) Assessment: 51 y/o female with COPD , fatty liver, Chronic ETOH abuse ( daily 8 cups of 8 ounce vodka ) , smoker , chronic lower back pain brought to ER for evaluation by EMS for facial and lower extremity swelling , SOB and lower back pain. As per patient she has some baseline SOB with ambulation and has chronic lower back pain . Pt was having some lower back pain for which she took some Motrin and Advil PM. and when she woke up she noticed her face and eyes to be swollen and her lower extremities were swollen as well. She could not get out of bed and was having significant back pain . She admits to having increased SOB with cough last couple of days, denies any fever ,chills, nausea, vomiting, chest pain . No sputum production. Denies any sick contact or trauma.She was seen at [facility] 1 week ago for SOB and was given steroids and duonebs. EMS was called and she was brought to ER where she was found to be in respiratory distress,with dyspnea RR 35 O2sat 94 %, slightly hypotensive BP 96/ 65 tachycardic HR 122. She was given 2 Duonebs in the field, 125 mg IV solumedrol in ER , started on IVF and placed on High Flow O2 ,20 LPM FIO2 60 % Her ABG showed PO2 70 PCO2 35 pH 7.38 . CXR showed bilateral infiltrates worse on the right WBC found to be elevated 16.8 Hgb 10 BUN/Cr 20/1.4 rigoberto 6.6 ASt / ALT 150/26 lactic acid 2.6 ETOH levels 73 Physical exam significant for tremors , increased work of breathing , periorbital, facial and lower extremity edema, her breath smells alcohol She was admitted in ICU for close monitoring and treatment. 1. Severe Sepsis-- improving Most likely secondary to multifocal pneumonia patient was hypotensive,tachycardic,hypoxemic with WBC 16.8 and CXR showing bilateral infiltrates, lactate 2.6 Cultures negative so far saturating well on FIO2 60 %. Will decrease to 45 % FIo2 Continue Duonebs, IV vanco , Zosyn and Zithromax Start Mucinex ID consulted- Dr Escalera 2.Acute hypoxemic respiratory failure-- improving Treated with Duonebs ,Solumedrol IV and placed on High Flow O2 vi aNC 20 LPM FIO2 60 % CT chest showed multifocal infiltrates . Unable to perform CTA due to renal function Pulmonary and ID cosnult appreciated patient tolerating high flow well , SOB improved , unable to expectorate. Will decrease FIo2 to 45 % Start Mucinex Continue IV antibiotics and Duonebs 3. Multifocal Pneumonia ID and pulmonary consulted on Vanco, Zosyn and Zithromax cultures with no growth so far patient is a long time smoker so will need to follow up resolution of infiltrates to rule out any underlying malignancy 4. Facial and lower extremity edema unclear etiology of facial edema --resolved TSH : normal Given Solumedrol 125 mg IV and continued 40 mg iBv q8 for 2 days together with benadryl and famotidine Will d/c Solumedrol., famotidine and Benadryl LE venous doppler negative for DVT Echo showed normal LVF EF 65 -70 % 5. ETOH abuse / Impending DT-s patient was tremulous and tachycardic on admission ETOH levels 73 ( last drink yesterday ) continue Thiamine, Folic acid and MVI Continue hydration decrease Librium to 50 mg PO Q8 [facility] PRN Seizure precautions/ withdrawal precautions transfer to telemetry 6. SUNDAR improving BUN/ Cr 06/04.3 no prior records and unknown renal function 7.COPD mild exacerbation-- improved Duonebs , high flow pulmonary consulted counselled on smoking d/c Solumderol Start Advair 8. Alcoholic liver Bill 6.6 AST 150 on admission. rigoberto trending down to 2.9 CT chest showed hepatomegaly , fatty infiltration , some ascitic fluid and umbilical vein recannulization significant for portal hypertension \ US showed: Hepatomegaly with steatosis.Trace perihepatic ascites.Nonspecific gallbladder wall thickening. Gallbladder wall thickening is a nonspecific finding which can be seen with ascites, hepatitis, cholecystitis,CHF or hypoproteinemic states. patient has no abdominal pain , no fever , no signs of cholecystitis Continue monitoring 9. Chronic Lower back pain Ct chest also showing mild chronic compression fracture in mid thoracic spine Pain management PT eval 10.Anemia unclear etiology Normal Iron and B12 level 11. Hyperkalemia Blood sample hymolyzed 12. Smoker on nicotine patch 13. DVT prophylaxis GI prophylaxis Lovenox Pepcid
[2017-01-29] MEDS: Fluticasone-Salmeterol 250-50mcg Diskus IH SCH (21:32)
[2017-01-29] MEDS: guaiFENesin 600 mg ER Tab PO SCH (21:33)
[2017-01-30] MEDS: Piperacillin/Tazobact 3.375 GM in Sodium Chloride 0.9% 100 ML IVPB SCH ×3 (01:15→16:39)
[2017-01-30] MEDS: Albuterol-Ipratrop 3 mg / 0.5 (3 ml) UD INH SCH ×5 (04:03→19:43)
[2017-01-30 08:10] LABS: HEMATOCRIT 26.8 % (34.0-47.0); MEAN CELL VOLUME 105.6 fl (81.0-99.0); MEAN CORPUSCULAR HEMOGLOBIN 35.9 pg (27.0-31.0); WHITE BLOOD COUNT 9.9 K/uL (4.8-10.8)
[2017-01-30 08:22] LABS: ALB/GLOB RATIO 0.7 (1.0-2.1); ALKALINE PHOSPHATASE 141 U/L (38-126); ALT/SGPT 38 U/L (9-52); AST/SGOT 93 U/L (14-36); BILIRUBIN,TOTAL 2.8 mg/dl (0.2-1.3); BLOOD UREA NITROGEN 35 mg/dl (7-17); CALCIUM 8.7 mg/dL (8.4-10.2); CARBON DIOXIDE 25 mmol/L (22-30); CHLORIDE 112 mmol/L (98-107); GFR AFRICAN-AMERICAN > 60; GLUCOSE,RANDOM 118 mg/dL (65-105); POTASSIUM 4.2 MMOL/L (3.6-5.0); SODIUM 145 mmol/l (132-148); TOTAL PROTEIN 7.4 G/DL (6.3-8.2)
[2017-01-30] MEDS: Fluticasone-Salmeterol 250-50mcg Diskus IH SCH ×2 (08:39→20:45)
[2017-01-30] MEDS: Multivitamin With Minerals Tab PO SCH (08:40)
[2017-01-30] MEDS: guaiFENesin 600 mg ER Tab PO SCH ×2 (08:40→20:45)
[2017-01-30] MEDS: Enoxaparin 30 mg Syringe SC SCH (08:41)
[2017-01-30] MEDS: Azithromycin 500 MG in Sodium Chloride 0.9% 250 ML IVPB SCH (08:43)
--- NOTE | 2017-01-30 09:55 | CP.PCM.PN ---
Subjective - Date & Time of Evaluation Date of Evaluation: 01/30/17 Time of Evaluation: 10:00 - Subjective Subjective: Patient was seen and examined bedside.With severe dyspnea with minimal ambulation ( using the comode) with accessory muscle use. Very agitated and angry today stating that wants to leave the hospital and go home, confused at times .Obese. No acute issues overnight. with fin etremors , not tachycardic saturating 97 % on 3 l O2 via NC WBC 9.9 k HGb 9.1 plt 141 Objective - Vital Signs/Intake and Output Vital Signs (last 24 hours): Temp Pulse Resp BP Pulse Ox 98.2 F 101 H 20 122/74 97 01/30/17 08:00 01/30/17 08:00 01/30/17 08:00 01/30/17 08:00 01/30/17 08:00 - Medications Medications: Current Medications Acetaminophen (Tylenol 325mg Tab) 650 mg PO Q6H PRN PRN Reason: Pain, Mild (1-3) Last Admin: 01/27/17 20:33 Dose: 650 mg Acetaminophen (Tylenol 325mg Tab) 650 mg PO Q6H PRN PRN Reason: Fever >100.4 F Albuterol/Ipratropium (Duoneb 3 Mg/0.5 Mg (3 Ml) Ud) 3 ml INH RQ4 [facility] Last Admin: 01/30/17 07:28 Dose: 3 ml Chlordiazepoxide (Librium) 50 mg PO Q6 [facility] Last Admin: 01/30/17 09:10 Dose: 50 mg Docusate Sodium (Colace) 100 mg PO BID PRN PRN Reason: Constipation Enoxaparin Sodium (Lovenox) 30 mg SC DAILY [facility] PRN Reason: Protocol Last Admin: 01/30/17 08:41 Dose: 30 mg Fluticasone Propionate (Flonase) 1 spr GINGER BID [facility] Last Admin: 01/30/17 08:40 Dose: 1 spr Folic Acid (Folic Acid) 1 mg PO DAILY [facility] Last Admin: 01/30/17 08:40 Dose: 1 mg Guaifenesin (Mucinex La) 600 mg PO Q12 [facility] Last Admin: 01/30/17 08:40 Dose: 600 mg Azithromycin 500 mg/ Sodium (Chloride) 250 mls @ 250 mls/hr IVPB DAILY [facility] PRN Reason: Protocol Last Admin: 01/30/17 08:43 Dose: 250 mls/hr Piperacillin Sod/Tazobactam (Sod 3.375 gm/ Sodium Chloride) 100 mls @ 100 mls/ hr IVPB Q8 [facility] PRN Reason: Protocol Last Admin: 01/30/17 08:42 Dose: 100 mls/hr Vancomycin HCl 1 gm/ Sodium (Chloride) 250 mls @ 166.667 mls/hr IVPB DAILY [facility] PRN Reason: Protocol Last Admin: 01/30/17 08:43 Dose: 166.667 mls/hr Ketorolac Tromethamine (Toradol) 15 mg IVP Q6 PRN PRN Reason: Pain, moderate (4-7) Last Admin: 01/28/17 18:35 Dose: 15 mg Lorazepam (Ativan) 1 mg PO TID PRN PRN Reason: Agitation Last Admin: 01/29/17 08:01 Dose: 1 mg Morphine Sulfate (Morphine) 2 mg IVP Q6 PRN PRN Reason: Pain, severe (8-10) Last Admin: 01/29/17 09:25 Dose: 2 mg Multivitamins/Minerals (Therapeutic-M Tab) 1 tab PO DAILY [facility] Last Admin: 01/30/17 08:40 Dose: 1 tab Nicotine (Nicoderm Cq) 1 patch TD DAILY [facility] Last Admin: 01/30/17 08:40 Dose: 1 patch Ondansetron HCl (Zofran Inj) 4 mg IVP Q6H PRN PRN Reason: Nausea/Vomiting Fluticasone/Salmeterol (Advair Diskus 250/50) 1 puff IH Q12 [facility] Last Admin: 01/30/17 08:39 Dose: 1 puff Thiamine HCl (Vitamin B1 Tab) 100 mg PO DAILY [facility] Last Admin: 01/30/17 08:41 Dose: 100 mg - Labs Labs: 01/30/17 06:30 01/30/17 06:30 PT 16.7 Seconds (9.8-13.1) H 01/30/17 06:30 INR 1.5 (0.9-1.2) H 01/30/17 06:30 APTT 40.3 Seconds (25.6-37.1) H 01/27/17 18:15 - Constitutional Appears: In Acute Distress (with severe dyspnea with minimal ambulation , confused at times ), Agitated, Chronically Ill, Other (obese) - Head Exam Head Exam: ATRAUMATIC, NORMAL INSPECTION, NORMOCEPHALIC - Eye Exam Eye Exam: EOMI, PERRL - ENT Exam ENT Exam: Mucous Membranes Moist, Normal Exam - Neck Exam Neck Exam: Full ROM, Normal Inspection - Respiratory Exam Respiratory Exam: Accessory Muscle Use, Prolonged Expiratory Phase, Respiratory Distress. absent: Rhonchi, Wheezes, Stridor - Cardiovascular Exam Cardiovascular Exam: REGULAR RHYTHM, RRR, +S1, +S2. absent: JVD - GI/Abdominal Exam GI & Abdominal Exam: Soft, Normal Bowel Sounds. absent: Distended, Guarding, Tenderness, Rebound - Rectal Exam Rectal Exam: Deferred - Extremities Exam Extremities Exam: Normal Inspection, Pedal Edema (2 +) - Neurological Exam Neurological Exam: Alert, Awake Additional comments: agitated , angry , confused - Psychiatric Exam Psychiatric exam: Agitated, Anxious, Flat Affect - Skin Skin Exam: Dry, Pallor, Warm Additional comments: bruises to right mid upper back , left upper back left arm inner aspect Assessment and Plan - Assessment and Plan (Free Text) Assessment: 51 y/o female with COPD , fatty liver, Chronic ETOH abuse ( daily 8 cups of 8 ounce vodka ) , smoker , chronic lower back pain brought to ER for evaluation by EMS for facial and lower extremity swelling , SOB and lower back pain. As per patient she has some baseline SOB with ambulation and has chronic lower back pain . Pt was having some lower back pain for which she took some Motrin and Advil PM. and when she woke up she noticed her face and eyes to be swollen and her lower extremities were swollen as well. She could not get out of bed and was having significant back pain . She admits to having increased SOB with cough last couple of days, denies any fever ,chills, nausea, vomiting, chest pain . No sputum production. Denies any sick contact or trauma.She was seen at [facility] 1 week ago for SOB and was given steroids and duonebs. EMS was called and she was brought to ER where she was found to be in respiratory distress,with dyspnea RR 35 O2sat 94 %, slightly hypotensive BP 96/ 65 tachycardic HR 122. She was given 2 Duonebs in the field, 125 mg IV solumedrol in ER , started on IVF and placed on High Flow O2 ,20 LPM FIO2 60 % Her ABG showed PO2 70 PCO2 35 pH 7.38 . CXR showed bilateral infiltrates worse on the right WBC found to be elevated 16.8 Hgb 10 BUN/Cr 20/1.4 rigoberto 6.6 ASt / ALT 150/26 lactic acid 2.6 ETOH levels 73 Physical exam significant for tremors , increased work of breathing , periorbital, facial and lower extremity edema, her breath smells alcohol She was admitted in ICU for close monitoring and treatment. 1. Severe Sepsis-- improving Most likely secondary to multifocal pneumonia patient was hypotensive,tachycardic,hypoxemic with WBC 16.8 and CXR showing bilateral infiltrates, lactate 2.6 Cultures negative so far Changed from high flow oxygen to 3 L O2 via Nc and saturating well. With significant dyspnea with minimal ambulation Continue Duonebs, IV vanco , Zosyn and Zithromax Started Mucinex ID consulted- Dr Escalera 2.Acute hypoxemic respiratory failure-- improving Treated with Duonebs ,Solumedrol IV and placed on High Flow O2 via NC 20 LPM FIO2 60 % CT chest showed multifocal infiltrates . Unable to perform CTA due to renal function Pulmonary and ID consult appreciated patient tolerated high flow well , SOB improved , unable to expectorate.Switched to 3 L O2 via NC Start Mucinex Continue IV antibiotics and Duonebs 3. Multifocal Pneumonia ID and pulmonary consulted on Vanco, Zosyn and Zithromax cultures with no growth so far patient is a long time smoker so will need to follow up resolution of infiltrates to rule out any underlying malignancy 4. Facial and lower extremity edema unclear etiology of facial edema --resolved TSH : normal Given Solumedrol 125 mg IV and continued 40 mg iBv q8 for 2 days together with benadryl and famotidine Will d/c Solumedrol., famotidine and Benadryl LE venous doppler negative for DVT Echo showed normal LVF EF 65 -70 % will give lasix 40 mg IV 1 dose 5. ETOH abuse / Impending DT-s patient was tremulous and tachycardic on admission ETOH levels 73 ( last drink yesterday ) continue Thiamine, Folic acid and MVI Continue hydration decreased Librium to 50 mg PO Q8 Ativan PRN Seizure precautions/ withdrawal precautions patient is agitated , with fine tremors , not tachycardic with on and off confusion 6. SUNDAR improving BUN/ Cr 31/1.3 no prior records and unknown renal function 7.COPD mild exacerbation-- improved Duonebs , high flow pulmonary consulted counselled on smoking d/c Solumderol Started Advair 8. Alcoholic liver Bill 6.6 AST 150 on admission. rigoberto trending down to 2.9 CT chest showed hepatomegaly , fatty infiltration , some ascitic fluid and umbilical vein recannulization significant for portal hypertension \ US showed: Hepatomegaly with steatosis.Trace perihepatic ascites.Nonspecific gallbladder wall thickening. Gallbladder wall thickening is a nonspecific finding which can be seen with ascites, hepatitis, cholecystitis,CHF or hypoproteinemic states. patient has no abdominal pain , no fever , no signs of cholecystitis Continue monitoring 9. Chronic Lower back pain Ct chest also showing mild chronic compression fracture in mid thoracic spine Pain management PT eval 10.Anemia unclear etiology Normal Iron and B12 level 11. Hyperkalemia Blood sample hemolyzed 12. Smoker on nicotine patch 13. DVT prophylaxis GI prophylaxis Lovenox Pepcid
[2017-01-30] MEDS ORDERED: methylPREDNISolone 40 MG in Sodium Chloride 0.9% 50 ML IV SCH (11:45)
[2017-01-30] MEDS: MethylPREDNISolone 40 mg Vial IVP SCH ×2 (11:47→16:32)
--- NOTE | 2017-01-30 15:06 | CP.PCM.PN ---
Subjective - Date & Time of Evaluation Date of Evaluation: 01/30/17 Time of Evaluation: 08:00 - Subjective Subjective: weak and lethargic denies fever chills cough or SOB Objective - Vital Signs/Intake and Output Vital Signs (last 24 hours): Temp Pulse Resp BP Pulse Ox 97.7 F 99 H 20 105/67 98 01/30/17 12:00 01/30/17 12:00 01/30/17 12:00 01/30/17 12:00 01/30/17 12:00 - Medications Medications: Current Medications Acetaminophen (Tylenol 325mg Tab) 650 mg PO Q6H PRN PRN Reason: Pain, Mild (1-3) Last Admin: 01/27/17 20:33 Dose: 650 mg Acetaminophen (Tylenol 325mg Tab) 650 mg PO Q6H PRN PRN Reason: Fever >100.4 F Albuterol/Ipratropium (Duoneb 3 Mg/0.5 Mg (3 Ml) Ud) 3 ml INH RQ4 [facility] Last Admin: 01/30/17 11:15 Dose: 3 ml Chlordiazepoxide (Librium) 50 mg PO Q6 [facility] Last Admin: 01/30/17 09:10 Dose: 50 mg Docusate Sodium (Colace) 100 mg PO BID PRN PRN Reason: Constipation Enoxaparin Sodium (Lovenox) 30 mg SC DAILY [facility] Reason: Protocol Last Admin: 01/30/17 08:41 Dose: 30 mg Fluticasone Propionate (Flonase) 1 spr GINGER BID [facility] Last Admin: 01/30/17 08:40 Dose: 1 spr Folic Acid (Folic Acid) 1 mg PO DAILY [facility] Last Admin: 01/30/17 08:40 Dose: 1 mg Guaifenesin (Mucinex La) 600 mg PO Q12 [facility] Last Admin: 01/30/17 08:40 Dose: 600 mg Azithromycin 500 mg/ Sodium (Chloride) 250 mls @ 250 mls/hr IVPB DAILY [facility] PRN Reason: Protocol Last Admin: 01/30/17 08:43 Dose: 250 mls/hr Piperacillin Sod/Tazobactam (Sod 3.375 gm/ Sodium Chloride) 100 mls @ 100 mls/ hr IVPB Q8 [facility] PRN Reason: Protocol Last Admin: 01/30/17 08:42 Dose: 100 mls/hr Vancomycin HCl 1 gm/ Sodium (Chloride) 250 mls @ 166.667 mls/hr IVPB DAILY [facility] PRN Reason: Protocol Last Admin: 01/30/17 08:43 Dose: 166.667 mls/hr Ketorolac Tromethamine (Toradol) 15 mg IVP Q6 PRN PRN Reason: Pain, moderate (4-7) Last Admin: 01/28/17 18:35 Dose: 15 mg Lorazepam (Ativan) 1 mg PO TID PRN PRN Reason: Agitation Last Admin: 01/29/17 08:01 Dose: 1 mg Methylprednisolone (Solu-Medrol) 40 mg IVP Q8 [facility] Last Admin: 01/30/17 11:47 Dose: 40 mg Morphine Sulfate (Morphine) 2 mg IVP Q6 PRN PRN Reason: Pain, severe (8-10) Last Admin: 01/30/17 11:43 Dose: 2 mg Multivitamins/Minerals (Therapeutic-M Tab) 1 tab PO DAILY [facility] Last Admin: 01/30/17 08:40 Dose: 1 tab Nicotine (Nicoderm Cq) 1 patch TD DAILY [facility] Last Admin: 01/30/17 08:40 Dose: 1 patch Ondansetron HCl (Zofran Inj) 4 mg IVP Q6H PRN PRN Reason: Nausea/Vomiting Fluticasone/Salmeterol (Advair Diskus 250/50) 1 puff IH Q12 [facility] Last Admin: 01/30/17 08:39 Dose: 1 puff Thiamine HCl (Vitamin B1 Tab) 100 mg PO DAILY [facility] Last Admin: 01/30/17 08:41 Dose: 100 mg - Labs Labs: 01/30/17 06:30 01/30/17 06:30 PT 16.7 Seconds (9.8-13.1) H 01/30/17 06:30 INR 1.5 (0.9-1.2) H 01/30/17 06:30 APTT 40.3 Seconds (25.6-37.1) H 01/27/17 18:15 - Constitutional Appears: Non-toxic, Chronically Ill - Head Exam Head Exam: NORMOCEPHALIC - Eye Exam Eye Exam: PERRL. absent: Scleral icterus - ENT Exam ENT Exam: Mucous Membranes Dry - Neck Exam Neck Exam: absent: Lymphadenopathy - Respiratory Exam Respiratory Exam: Decreased Breath Sounds - Cardiovascular Exam Cardiovascular Exam: REGULAR RHYTHM - GI/Abdominal Exam GI & Abdominal Exam: Distended - Rectal Exam Rectal Exam: Deferred - Exam Exam: NORMAL INSPECTION - Extremities Exam Extremities Exam: absent: Pedal Edema - Back Exam Back Exam: absent: CVA tenderness (L), CVA tenderness (R) - Neurological Exam Neurological Exam: Alert, Awake, Oriented x3 Neuro motor strength exam: Left Upper Extremity: 4, Right Upper Extremity: 4, Left Lower Extremity: 4, Right Lower Extremity: 4 - Psychiatric Exam Psychiatric exam: Depressed - Skin Skin Exam: Dry Assessment and Plan (1) Bilateral pneumonia Status: Acute (2) COPD exacerbation Status: Acute (3) Respiratory distress Status: Acute (4) Severe sepsis Status: Acute (5) Alcohol abuse Status: Acute
[2017-01-31] MEDS: MethylPREDNISolone 40 mg Vial IVP SCH ×3 (00:08→16:35)
[2017-01-31] MEDS: Piperacillin/Tazobact 3.375 GM in Sodium Chloride 0.9% 100 ML IVPB SCH ×3 (00:08→17:36)
[2017-01-31] MEDS: Albuterol-Ipratrop 3 mg / 0.5 (3 ml) UD INH SCH ×7 (00:18→23:21)
[2017-01-31] MEDS: Multivitamin With Minerals Tab PO SCH (08:59)
[2017-01-31] MEDS: guaiFENesin 600 mg ER Tab PO SCH ×2 (08:59→22:28)
[2017-01-31] MEDS: Enoxaparin 30 mg Syringe SC SCH (09:00)
[2017-01-31] MEDS: Fluticasone-Salmeterol 250-50mcg Diskus IH SCH ×3 (09:00→22:28)
--- NOTE | 2017-01-31 09:27 | CP.PCM.PN ---
Subjective - Date & Time of Evaluation Date of Evaluation: 01/31/17 Time of Evaluation: 09:30 - Subjective Subjective: Patient was seen and examined bedside.Patient is sitting on the bed , agitated , with dyspnea and accessory muscle use at rest, restless , wants to go home.Complains of headache. BP 121/75 HR 94 , saturating 93 % on 3 L O2 via NC with fine tremors Objective - Vital Signs/Intake and Output Vital Signs (last 24 hours): Temp Pulse Resp BP Pulse Ox 98.4 F 94 H 20 154/84 H 93 L 01/31/17 08:00 01/31/17 08:00 01/31/17 08:00 01/31/17 08:00 01/31/17 08:00 Intake and Output: 01/31/17 01/31/17 06:59 18:59 Intake Total 1420 Output Total 800 Balance 620 - Medications Medications: Current Medications Acetaminophen (Tylenol 325mg Tab) 650 mg PO Q6H PRN PRN Reason: Pain, Mild (1-3) Last Admin: 01/27/17 20:33 Dose: 650 mg Acetaminophen (Tylenol 325mg Tab) 650 mg PO Q6H PRN PRN Reason: Fever >100.4 F Albuterol/Ipratropium (Duoneb 3 Mg/0.5 Mg (3 Ml) Ud) 3 ml INH RQ4 [facility] Last Admin: 01/31/17 07:21 Dose: Not Given Chlordiazepoxide (Librium) 50 mg PO Q6 [facility] Last Admin: 01/31/17 05:05 Dose: 50 mg Docusate Sodium (Colace) 100 mg PO BID PRN PRN Reason: Constipation Enoxaparin Sodium (Lovenox) 30 mg SC DAILY [facility] PRN Reason: Protocol Last Admin: 01/31/17 09:00 Dose: 30 mg Fluticasone Propionate (Flonase) 1 spr GINGER BID [facility] Last Admin: 01/31/17 09:01 Dose: 1 spr Folic Acid (Folic Acid) 1 mg PO DAILY [facility] Last Admin: 01/31/17 08:59 Dose: 1 mg Guaifenesin (Mucinex La) 600 mg PO Q12 [facility] Last Admin: 01/31/17 08:59 Dose: 600 mg Azithromycin 500 mg/ Sodium (Chloride) 250 mls @ 250 mls/hr IVPB DAILY [facility] PRN Reason: Protocol Last Admin: 01/30/17 08:43 Dose: 250 mls/hr Piperacillin Sod/Tazobactam (Sod 3.375 gm/ Sodium Chloride) 100 mls @ 100 mls/ hr IVPB Q8 [facility] PRN Reason: Protocol Last Admin: 01/31/17 00:08 Dose: 100 mls/hr Vancomycin HCl 1 gm/ Sodium (Chloride) 250 mls @ 166.667 mls/hr IVPB DAILY [facility] PRN Reason: Protocol Last Admin: 01/30/17 08:43 Dose: 166.667 mls/hr Ketorolac Tromethamine (Toradol) 15 mg IVP Q6 PRN PRN Reason: Pain, moderate (4-7) Last Admin: 01/28/17 18:35 Dose: 15 mg Lorazepam (Ativan) 1 mg PO TID PRN PRN Reason: Agitation Last Admin: 01/30/17 20:44 Dose: 1 mg Methylprednisolone (Solu-Medrol) 40 mg IVP Q8 [facility] Last Admin: 01/31/17 09:00 Dose: 40 mg Morphine Sulfate (Morphine) 2 mg IVP Q6 PRN PRN Reason: Pain, severe (8-10) Last Admin: 01/31/17 00:58 Dose: 2 mg Multivitamins/Minerals (Therapeutic-M Tab) 1 tab PO DAILY [facility] Last Admin: 01/31/17 08:59 Dose: 1 tab Nicotine (Nicoderm Cq) 1 patch TD DAILY [facility] Last Admin: 01/31/17 08:59 Dose: 1 patch Ondansetron HCl (Zofran Inj) 4 mg IVP Q6H PRN PRN Reason: Nausea/Vomiting Fluticasone/Salmeterol (Advair Diskus 250/50) 1 puff IH Q12 [facility] Last Admin: 01/31/17 09:00 Dose: 1 puff Thiamine HCl (Vitamin B1 Tab) 100 mg PO DAILY [facility] Last Admin: 01/31/17 08:59 Dose: 100 mg - Labs Labs: 01/30/17 06:30 01/30/17 06:30 PT 16.7 Seconds (9.8-13.1) H 01/30/17 06:30 INR 1.5 (0.9-1.2) H 01/30/17 06:30 APTT 40.3 Seconds (25.6-37.1) H 01/27/17 18:15 - Constitutional Appears: In Acute Distress, Older Than Stated Age, Agitated, Chronically Ill, Other (obese,restless) - Eye Exam Eye Exam: EOMI, PERRL Pupil Exam: NORMAL ACCOMODATION - ENT Exam ENT Exam: Mucous Membranes Dry - Neck Exam Neck Exam: Normal Inspection - Respiratory Exam Respiratory Exam: Accessory Muscle Use, Prolonged Expiratory Phase, Respiratory Distress Additional comments: scattered wheezing - Cardiovascular Exam Cardiovascular Exam: REGULAR RHYTHM, RRR, +S1, +S2. absent: JVD - GI/Abdominal Exam GI & Abdominal Exam: Soft, Normal Bowel Sounds. absent: Distended, Guarding, Tenderness, Rebound - Rectal Exam Rectal Exam: Deferred - Extremities Exam Extremities Exam: Pedal Edema (2 + bilaterally ). absent: Calf Tenderness - Back Exam Back Exam: NORMAL INSPECTION - Neurological Exam Neurological Exam: Alert, Awake, CN II-XII Intact - Psychiatric Exam Psychiatric exam: Agitated, Anxious, Depressed Additional comments: restless - Skin Skin Exam: Dry, Pallor, Warm Assessment and Plan - Assessment and Plan (Free Text) Assessment: 51 y/o female with COPD , fatty liver, Chronic ETOH abuse ( daily 8 cups of 8 ounce vodka ) , smoker , chronic lower back pain brought to ER for evaluation by EMS for facial and lower extremity swelling , SOB and lower back pain. As per patient she has some baseline SOB with ambulation and has chronic lower back pain . Pt was having some lower back pain for which she took some Motrin and Advil PM. and when she woke up she noticed her face and eyes to be swollen and her lower extremities were swollen as well. She could not get out of bed and was having significant back pain . She admits to having increased SOB with cough last couple of days, denies any fever ,chills, nausea, vomiting, chest pain . No sputum production. Denies any sick contact or trauma.She was seen at [facility] 1 week ago for SOB and was given steroids and duonebs. EMS was called and she was brought to ER where she was found to be in respiratory distress,with dyspnea RR 35 O2sat 94 %, slightly hypotensive BP 96/ 65 tachycardic HR 122. She was given 2 Duonebs in the field, 125 mg IV solumedrol in ER , started on IVF and placed on High Flow O2 ,20 LPM FIO2 60 % Her ABG showed PO2 70 PCO2 35 pH 7.38 . CXR showed bilateral infiltrates worse on the right WBC found to be elevated 16.8 Hgb 10 BUN/Cr 20/1.4 rigoberto 6.6 ASt / ALT 150/26 lactic acid 2.6 ETOH levels 73 Physical exam significant for tremors , increased work of breathing , periorbital, facial and lower extremity edema, her breath smells alcohol She was admitted in ICU for close monitoring and treatment.At present transferred to telemetry , agitated , restless , confused . 1. Severe Sepsis-- improving Most likely secondary to multifocal pneumonia patient was hypotensive,tachycardic,hypoxemic with WBC 16.8 and CXR showing bilateral infiltrates, lactate 2.6 Cultures negative so far Changed from high flow oxygen to 3 L O2 via Nc and saturating well. With significant dyspnea with minimal ambulation Continue Duonebs, IV vanco , Zosyn and Zithromax on Mucinex ID consult with Dr Escalera appreciated 2.Acute hypoxemic respiratory failure-- improving Most likely secondary to multi lobar Pneumonia and COPD exacerbation Treated with Duonebs ,Solumedrol IV and placed on High Flow O2 via NC 20 LPM FIO2 60 % CT chest showed multifocal infiltrates . Unable to perform CTA due to renal function Pulmonary and ID consult appreciated patient tolerated high flow well , SOB improved , unable to expectorate.Switched to 3 L O2 via NC on Mucinex Continue IV antibiotics and Duonebs on solumedrol 40 mg IV q8 3. Multifocal Pneumonia ID and pulmonary consulted on Vanco, Zosyn and Zithromax Check vanco trough cultures with no growth so far patient is a long time smoker so will need to follow up resolution of infiltrates to rule out any underlying malignancy 4. Facial and lower extremity edema unclear etiology of facial edema --resolved TSH : normal Given Solumedrol 125 mg IV and continued 40 mg iv q8 for 2 days together with benadryl and famotidine discontinued famotidine and Benadryl LE venous doppler negative for DVT Echo showed normal LVF EF 65 -70 % given lasix 5. ETOH abuse / Impending DT-s patient was tremulous and tachycardic on admission ETOH levels 73 ( last drink yesterday ) continue Thiamine, Folic acid and MVI Continue hydration decreased Librium to 50 mg PO Q8 Ativan PRN Seizure precautions/ withdrawal precautions patient is agitated , with fine tremors , not tachycardic with on and off confusion 6. SUNDAR improving no prior records and unknown renal function 7.COPD mild exacerbation-- improved Duonebs , high flow pulmonary consulted counselled on smoking d/c Solumderolon solumedrol 40 mg IV Q8 8. Alcoholic liver Bill 6.6 AST 150 on admission. rigoberto trending down to 2.9 CT chest showed hepatomegaly , fatty infiltration , some ascitic fluid and umbilical vein recannulization significant for portal hypertension \ US showed: Hepatomegaly with steatosis.Trace perihepatic ascites.Nonspecific gallbladder wall thickening. Gallbladder wall thickening is a nonspecific finding which can be seen with ascites, hepatitis, cholecystitis,CHF or hypoproteinemic states. patient has no abdominal pain , no fever , no signs of cholecystitis Continue monitoring 9. Chronic Lower back pain Ct chest also showing mild chronic compression fracture in mid thoracic spine Pain management PT eval 10.Anemia unclear etiology Normal Iron and B12 level 11. Hyperkalemia Blood sample hemolyzed 12. Smoker on nicotine patch 13. DVT prophylaxis GI prophylaxis Lovenox Pepcid
[2017-01-31] MEDS: Azithromycin 500 MG in Sodium Chloride 0.9% 250 ML IVPB SCH (09:46)
--- NOTE | 2017-01-31 11:12 | PQF GENQUE ---
This form is a permanent part of the medical record 01/31/17 Dr. Arora, After workup would you please clarify the possible type of pneumonia if known. Admitted with sob, facial and leg swelling. Hypotensive, tachycardic and hypoxemic.CT chest with multifocal infiltrates. Sputum CS: Yeast species. Treatment includes: High flow O2, IVAB, Duonebs. Clarification of your documentation is requested to better reflect the severity of illness and intensity of treatment of your patient. Indicators present [] Specify: [] [] Specify: [] [] Specify: [] [] Specify: [] Location in the medical record that reflects the above clinical findings: [] Treatment Provided: [] PHYSICIAN'S RESPONSE [] Aspiration Pneumonia [] Bacterial Pneumonia please clarify organism [] Bronchopneumonia (specify organism) [] Interstitual pneumonia [] Organizing pneumonia/BOOP [] Viral pneumonia [] Other pneumonia (specify organism or type) [x] Clinically unable to determine [x] Unknown Note: CAP, HAP, and HCAP indicate where the pneumonia was acquired, not a specific type. Based on your medical judgment of the clinical indicators outlined above please clarify the following: [] Practitioner response [] If unable to determine, please check the box, sign and date. Present On Admission (POA) Indicator: [] Present at the time of admission [] Not present at the time of admission [] Clinically Undetermined In responding to this query, please exercise your independent professional judgment. The fact that a question is asked does not imply that any particular answer is desired or expected. Thank you for your clarification on this documentation. If you have any questions please call:extension [phone] * Thank you, Yasmine Kinsey RN CDMP MTDD
--- NOTE | 2017-01-31 13:05 | CP.PCM.PN ---
Subjective - Date & Time of Evaluation Date of Evaluation: 01/31/17 Time of Evaluation: 09:00 - Subjective Subjective: overall improved no fever less sob weak and bedridden Objective - Vital Signs/Intake and Output Vital Signs (last 24 hours): Temp Pulse Resp BP Pulse Ox 98.1 F 71 18 121/63 98 01/31/17 11:48 01/31/17 11:48 01/31/17 11:48 01/31/17 11:48 01/31/17 11:48 Intake and Output: 01/31/17 01/31/17 06:59 18:59 Intake Total 1420 Output Total 800 Balance 620 - Medications Medications: Current Medications Acetaminophen (Tylenol 325mg Tab) 650 mg PO Q6H PRN PRN Reason: Pain, Mild (1-3) Last Admin: 01/27/17 20:33 Dose: 650 mg Acetaminophen (Tylenol 325mg Tab) 650 mg PO Q6H PRN PRN Reason: Fever >100.4 F Albuterol/Ipratropium (Duoneb 3 Mg/0.5 Mg (3 Ml) Ud) 3 ml INH RQ4 [facility] Last Admin: 01/31/17 11:26 Dose: Not Given Chlordiazepoxide (Librium) 50 mg PO Q6 [facility] Last Admin: 01/31/17 10:44 Dose: 50 mg Docusate Sodium (Colace) 100 mg PO BID PRN PRN Reason: Constipation Enoxaparin Sodium (Lovenox) 30 mg SC DAILY [facility] PRN Reason: Protocol Last Admin: 01/31/17 09:00 Dose: 30 mg Fluticasone Propionate (Flonase) 1 spr GINGER BID [facility] Last Admin: 01/31/17 09:53 Dose: Not Given Folic Acid (Folic Acid) 1 mg PO DAILY [facility] Last Admin: 01/31/17 08:59 Dose: 1 mg Guaifenesin (Mucinex La) 600 mg PO Q12 [facility] Last Admin: 01/31/17 08:59 Dose: 600 mg Azithromycin 500 mg/ Sodium (Chloride) 250 mls @ 250 mls/hr IVPB DAILY [facility] PRN Reason: Protocol Last Admin: 01/31/17 09:46 Dose: 250 mls/hr Piperacillin Sod/Tazobactam (Sod 3.375 gm/ Sodium Chloride) 100 mls @ 100 mls/ hr IVPB Q8 [facility] PRN Reason: Protocol Last Admin: 01/31/17 09:45 Dose: 100 mls/hr Vancomycin HCl 1 gm/ Sodium (Chloride) 250 mls @ 166.667 mls/hr IVPB DAILY [facility] PRN Reason: Protocol Last Admin: 01/31/17 09:45 Dose: 166.667 mls/hr Ketorolac Tromethamine (Toradol) 15 mg IVP Q6 PRN PRN Reason: Pain, moderate (4-7) Last Admin: 01/28/17 18:35 Dose: 15 mg Lorazepam (Ativan) 1 mg PO TID PRN PRN Reason: Agitation Last Admin: 01/31/17 09:50 Dose: 1 mg Methylprednisolone (Solu-Medrol) 40 mg IVP Q8 [facility] Last Admin: 01/31/17 09:00 Dose: 40 mg Morphine Sulfate (Morphine) 2 mg IVP Q6 PRN PRN Reason: Pain, severe (8-10) Last Admin: 01/31/17 12:21 Dose: 2 mg Multivitamins/Minerals (Therapeutic-M Tab) 1 tab PO DAILY [facility] Last Admin: 01/31/17 08:59 Dose: 1 tab Nicotine (Nicoderm Cq) 1 patch TD DAILY [facility] Last Admin: 01/31/17 08:59 Dose: 1 patch Ondansetron HCl (Zofran Inj) 4 mg IVP Q6H PRN PRN Reason: Nausea/Vomiting Fluticasone/Salmeterol (Advair Diskus 250/50) 1 puff IH Q12 [facility] Last Admin: 01/31/17 09:53 Dose: Not Given Thiamine HCl (Vitamin B1 Tab) 100 mg PO DAILY [facility] Last Admin: 01/31/17 08:59 Dose: 100 mg - Labs Labs: 01/30/17 06:30 01/30/17 06:30 PT 16.7 Seconds (9.8-13.1) H 01/30/17 06:30 INR 1.5 (0.9-1.2) H 01/30/17 06:30 APTT 40.3 Seconds (25.6-37.1) H 01/27/17 18:15 - Constitutional Appears: Non-toxic, Chronically Ill - Head Exam Head Exam: NORMOCEPHALIC - Eye Exam Eye Exam: absent: Scleral icterus - ENT Exam ENT Exam: Mucous Membranes Dry - Neck Exam Neck Exam: absent: Lymphadenopathy - Respiratory Exam Respiratory Exam: Decreased Breath Sounds, Rhonchi - Cardiovascular Exam Cardiovascular Exam: REGULAR RHYTHM - GI/Abdominal Exam GI & Abdominal Exam: Distended, Soft - Rectal Exam Rectal Exam: Deferred - Exam Exam: NORMAL INSPECTION Assessment and Plan (1) Bilateral pneumonia Status: Acute (2) COPD exacerbation Status: Acute (3) Respiratory distress Status: Acute (4) Severe sepsis Status: Acute (5) Alcohol abuse Status: Acute
[2017-01-31 13:17] LABS: FOLATE 7.2 ng/mL
[2017-02-01] MEDS: Piperacillin/Tazobact 3.375 GM in Sodium Chloride 0.9% 100 ML IVPB SCH ×3 (00:58→16:01)
[2017-02-01] MEDS: MethylPREDNISolone 40 mg Vial IVP SCH ×3 (01:20→23:47)
[2017-02-01] MEDS: Albuterol-Ipratrop 3 mg / 0.5 (3 ml) UD INH SCH ×4 (05:21→19:36)
[2017-02-01 05:47] LABS: HEMATOCRIT 31.1 % (34.0-47.0); MEAN CELL VOLUME 105.9 fl (81.0-99.0); MEAN CORPUSCULAR HEMOGLOBIN 34.8 pg (27.0-31.0); MEAN CORPUSCULAR HGB CONC 32.8 g/dL (33.0-37.0); RED CELL DISTRIBUTION WIDTH 15.7 % (11.5-14.5); WHITE BLOOD COUNT 19.4 K/uL (4.8-10.8)
[2017-02-01 05:59] LABS: BLOOD UREA NITROGEN 36 mg/dl (7-17); CALCIUM 9.3 mg/dL (8.4-10.2); CARBON DIOXIDE 26 mmol/L (22-30); CHLORIDE 109 mmol/L (98-107); GFR AFRICAN-AMERICAN > 60; GLUCOSE,RANDOM 110 mg/dL (65-105); POTASSIUM 4.7 MMOL/L (3.6-5.0); SODIUM 146 mmol/l (132-148)
[2017-02-01 06:13] LABS: ABG ALLEN TEST YES; ARTERIAL BLOOD GAS HCO3 24.8 mmol/L (21-28); ARTERIAL BLOOD GAS MODE 3L NC; ARTERIAL BLOOD GAS O2 CAPACITY 15.1 mL/dL (16-24); ARTERIAL BLOOD GAS O2 CONTENT 14.6 ML/dL (15-23); ARTERIAL BLOOD GAS PH 7.29 (7.35-7.45); ARTERIAL BLOOD GAS PO2 73 mm/Hg (80-100); ARTERIAL BLOOD HGB O2 SAT 92.3 % (95.0-98.0); CARBOXYHEMOGLOBIN 3.1 % (0.5-1.5); HHB 3.3 % (0.0-5.0); METHEMOGLOBIN 1.4 % (0.0-3.0)
[2017-02-01] MEDS ORDERED: Albuterol-Ipratrop 3 mg / 0.5 (3 ml) UD INH STA (06:31)
[2017-02-01] MEDS: Azithromycin 500 MG in Sodium Chloride 0.9% 250 ML IVPB SCH (09:22)
[2017-02-01] MEDS: Enoxaparin 30 mg Syringe SC SCH (09:23)
--- NOTE | 2017-02-01 09:54 | RAD ---
PROCEDURE: CHEST RADIOGRAPH, 1 VIEW HISTORY: pneumonia COMPARISON: Portable chest 01/27/2017. FINDINGS: LUNGS: Interval reduction bilateral pulmonary opacities appreciated at this time however the patient rotated toward the right limiting the interpretation. Limited patchy atelectasis or infiltrate seen the inferior left lung zone with linear atelectasis as well. Similar changes are suspected at the right infrahilar and perihilar spaces. PLEURA: No pneumothorax or pleural fluid seen. CARDIOVASCULAR: Cardiomegaly is likely stable. OSSEOUS STRUCTURES: No significant abnormalities. VISUALIZED UPPER ABDOMEN: Normal. OTHER FINDINGS: None. IMPRESSION: Stable mild cardiomegaly with diminishing bilateral infiltrates suspected. Rotation of the patient right limits evaluation. Further clinical correlation is advised.
[2017-02-01] MEDS: guaiFENesin 600 mg ER Tab PO SCH ×2 (10:44→20:35)
[2017-02-01] MEDS: Multivitamin With Minerals Tab PO SCH (10:51)
[2017-02-01] MEDS: Fluticasone-Salmeterol 250-50mcg Diskus IH SCH ×3 (10:54→20:34)
--- NOTE | 2017-02-01 11:10 | CP.PCM.PN ---
Subjective - Date & Time of Evaluation Date of Evaluation: 02/01/17 Time of Evaluation: 08:00 - Subjective Subjective: s/p [employer] for transfer to ICU Objective - Vital Signs/Intake and Output Vital Signs (last 24 hours): Temp Pulse Resp BP Pulse Ox 98.1 F 115 H 18 162/75 H 94 L 02/01/17 08:18 02/01/17 08:18 02/01/17 10:38 02/01/17 08:18 02/01/17 08:18 - Medications Medications: Current Medications Acetaminophen (Tylenol 325mg Tab) 650 mg PO Q6H PRN PRN Reason: Pain, Mild (1-3) Last Admin: 01/27/17 20:33 Dose: 650 mg Acetaminophen (Tylenol 325mg Tab) 650 mg PO Q6H PRN PRN Reason: Fever >100.4 F Albuterol/Ipratropium (Duoneb 3 Mg/0.5 Mg (3 Ml) Ud) 3 ml INH RQ4 [facility] Last Admin: 02/01/17 10:37 Dose: 3 ml Chlordiazepoxide (Librium) 50 mg PO Q6 [facility] Last Admin: 02/01/17 10:51 Dose: Not Given Docusate Sodium (Colace) 100 mg PO BID PRN PRN Reason: Constipation Enoxaparin Sodium (Lovenox) 30 mg SC DAILY [facility] PRN Reason: Protocol Last Admin: 02/01/17 09:23 Dose: 30 mg Fluticasone Propionate (Flonase) 1 spr GINGER BID [facility] Last Admin: 02/01/17 10:54 Dose: Not Given Folic Acid (Folic Acid) 1 mg PO DAILY [facility] Last Admin: 02/01/17 10:54 Dose: Not Given Guaifenesin (Mucinex La) 600 mg PO Q12 [facility] Last Admin: 02/01/17 10:44 Dose: Not Given Azithromycin 500 mg/ Sodium (Chloride) 250 mls @ 250 mls/hr IVPB DAILY [facility] PRN Reason: Protocol Last Admin: 02/01/17 09:22 Dose: 250 mls/hr Piperacillin Sod/Tazobactam (Sod 3.375 gm/ Sodium Chloride) 100 mls @ 100 mls/ hr IVPB Q8 [facility] PRN Reason: Protocol Last Admin: 02/01/17 09:21 Dose: 100 mls/hr Vancomycin HCl 1 gm/ Sodium (Chloride) 250 mls @ 166.667 mls/hr IVPB DAILY [facility] PRN Reason: Protocol Last Admin: 02/01/17 09:21 Dose: 166.667 mls/hr Ketorolac Tromethamine (Toradol) 15 mg IVP Q6 PRN PRN Reason: Pain, moderate (4-7) Last Admin: 01/28/17 18:35 Dose: 15 mg Lorazepam (Ativan) 1 mg PO TID PRN PRN Reason: Agitation Last Admin: 01/31/17 20:51 Dose: 1 mg Methylprednisolone (Solu-Medrol) 40 mg IVP Q8 [facility] Last Admin: 02/01/17 09:24 Dose: 40 mg Morphine Sulfate (Morphine) 2 mg IVP Q6 PRN PRN Reason: Pain, severe (8-10) Last Admin: 02/01/17 10:42 Dose: 2 mg Multivitamins/Minerals (Therapeutic-M Tab) 1 tab PO DAILY [facility] Last Admin: 02/01/17 10:51 Dose: Not Given Nicotine (Nicoderm Cq) 1 patch TD DAILY [facility] Last Admin: 02/01/17 09:23 Dose: 1 patch Ondansetron HCl (Zofran Inj) 4 mg IVP Q6H PRN PRN Reason: Nausea/Vomiting Fluticasone/Salmeterol (Advair Diskus 250/50) 1 puff IH Q12 [facility] Last Admin: 02/01/17 10:54 Dose: Not Given Thiamine HCl (Vitamin B1 Tab) 100 mg PO DAILY [facility] Last Admin: 02/01/17 10:51 Dose: Not Given - Labs Labs: 02/01/17 04:20 02/01/17 04:20 PT 16.7 Seconds (9.8-13.1) H 01/30/17 06:30 INR 1.5 (0.9-1.2) H 01/30/17 06:30 APTT 40.3 Seconds (25.6-37.1) H 01/27/17 18:15 - Constitutional Appears: In Acute Distress - Head Exam Head Exam: NORMOCEPHALIC - Eye Exam Eye Exam: PERRL - ENT Exam ENT Exam: Mucous Membranes Dry - Neck Exam Neck Exam: absent: Lymphadenopathy - Respiratory Exam Respiratory Exam: Decreased Breath Sounds - Cardiovascular Exam Cardiovascular Exam: REGULAR RHYTHM - GI/Abdominal Exam GI & Abdominal Exam: Distended, Soft - Rectal Exam Rectal Exam: Deferred - Exam Exam: NORMAL INSPECTION Assessment and Plan (1) Bilateral pneumonia Status: Acute (2) COPD exacerbation Status: Acute (3) Respiratory distress Status: Acute (4) Severe sepsis Status: Acute (5) Alcohol abuse Status: Acute
[2017-02-01] MEDS ORDERED: MethylPREDNISolone 40 mg Vial IVP SCH (15:30)
--- NOTE | 2017-02-01 15:46 | CP.PCM.PN ---
Subjective - Date & Time of Evaluation Date of Evaluation: 02/01/17 Time of Evaluation: 10:30 - Subjective Subjective: Patient was seen and examined bedside. TOURIST ESCORT called early this morning by nurse for patient being agitated , with dyspnea and accessory muscle use at rest, restless ,tachycardic and confused. She is saturating 94 % on 3 l O2 via NC ABG this AM showed ph 7.29 / PCO2 57 PO2 73 Afebrile BP 101/47 HR 100 WBC trending up 19 K Hgb 10 Plt 153 with fine tremors transferred to ICU Objective - Vital Signs/Intake and Output Vital Signs (last 24 hours): Temp Pulse Resp BP Pulse Ox 98.7 F 100 H 17 101/47 L 99 02/01/17 12:00 02/01/17 12:00 02/01/17 15:42 02/01/17 12:00 02/01/17 12:00 - Medications Medications: Current Medications Acetaminophen (Tylenol 325mg Tab) 650 mg PO Q6H PRN PRN Reason: Pain, Mild (1-3) Last Admin: 01/27/17 20:33 Dose: 650 mg Acetaminophen (Tylenol 325mg Tab) 650 mg PO Q6H PRN PRN Reason: Fever >100.4 F Albuterol/Ipratropium (Duoneb 3 Mg/0.5 Mg (3 Ml) Ud) 3 ml INH RQ4 [facility] Last Admin: 02/01/17 10:37 Dose: 3 ml Chlordiazepoxide (Librium) 50 mg PO Q6 [facility] Last Admin: 02/01/17 10:51 Dose: Not Given Docusate Sodium (Colace) 100 mg PO BID PRN PRN Reason: Constipation Enoxaparin Sodium (Lovenox) 30 mg SC DAILY [facility] PRN Reason: Protocol Last Admin: 02/01/17 09:23 Dose: 30 mg Folic Acid (Folic Acid) 1 mg PO DAILY [facility] Last Admin: 02/01/17 10:54 Dose: Not Given Guaifenesin (Mucinex La) 600 mg PO Q12 [facility] Last Admin: 02/01/17 10:44 Dose: Not Given Azithromycin 500 mg/ Sodium (Chloride) 250 mls @ 250 mls/hr IVPB DAILY [facility] PRN Reason: Protocol Last Admin: 02/01/17 09:22 Dose: 250 mls/hr Piperacillin Sod/Tazobactam (Sod 3.375 gm/ Sodium Chloride) 100 mls @ 100 mls/ hr IVPB Q8 [facility] PRN Reason: Protocol Last Admin: 02/01/17 09:21 Dose: 100 mls/hr Vancomycin HCl 1 gm/ Sodium (Chloride) 250 mls @ 166.667 mls/hr IVPB DAILY [facility] PRN Reason: Protocol Last Admin: 02/01/17 09:21 Dose: 166.667 mls/hr Ketorolac Tromethamine (Toradol) 15 mg IVP Q6 PRN PRN Reason: Pain, moderate (4-7) Last Admin: 01/28/17 18:35 Dose: 15 mg Lorazepam (Ativan) 1 mg PO TID PRN PRN Reason: Agitation Last Admin: 01/31/17 20:51 Dose: 1 mg Methylprednisolone (Solu-Medrol) 20 mg IVP Q8H [facility] Morphine Sulfate (Morphine) 2 mg IVP Q6 PRN PRN Reason: Pain, severe (8-10) Last Admin: 02/01/17 10:42 Dose: 2 mg Multivitamins/Minerals (Therapeutic-M Tab) 1 tab PO DAILY [facility] Last Admin: 02/01/17 10:51 Dose: Not Given Nicotine (Nicoderm Cq) 1 patch TD DAILY [facility] Last Admin: 02/01/17 09:23 Dose: 1 patch Ondansetron HCl (Zofran Inj) 4 mg IVP Q6H PRN PRN Reason: Nausea/Vomiting Fluticasone/Salmeterol (Advair Diskus 250/50) 1 puff IH Q12 [facility] Last Admin: 02/01/17 10:54 Dose: Not Given Thiamine HCl (Vitamin B1 Tab) 100 mg PO DAILY [facility] Last Admin: 02/01/17 10:51 Dose: Not Given - Labs Labs: 02/01/17 04:20 02/01/17 04:20 PT 16.7 Seconds (9.8-13.1) H 01/30/17 06:30 INR 1.5 (0.9-1.2) H 01/30/17 06:30 APTT 40.3 Seconds (25.6-37.1) H 01/27/17 18:15 - Constitutional Appears: In Acute Distress, Older Than Stated Age, Agitated, Confused, Chronically Ill, Other (obese, confused , restless ) - Head Exam Head Exam: ATRAUMATIC, NORMAL INSPECTION, NORMOCEPHALIC - Eye Exam Eye Exam: EOMI, PERRL Pupil Exam: NORMAL ACCOMODATION - ENT Exam ENT Exam: Mucous Membranes Moist, Normal Exam - Neck Exam Neck Exam: Normal Inspection - Respiratory Exam Respiratory Exam: Accessory Muscle Use, Prolonged Expiratory Phase, Rhonchi, Wheezes (scattered wheezing ), Respiratory Distress - Cardiovascular Exam Cardiovascular Exam: Tachycardia, RRR. absent: JVD - GI/Abdominal Exam GI & Abdominal Exam: Soft, Normal Bowel Sounds. absent: Distended, Guarding, Tenderness, Rebound - Rectal Exam Rectal Exam: Deferred - Extremities Exam Extremities Exam: Pedal Edema (2+ ). absent: Calf Tenderness - Back Exam Back Exam: NORMAL INSPECTION - Neurological Exam Neurological Exam: Alert, Awake, CN II-XII Intact - Psychiatric Exam Psychiatric exam: Agitated, Anxious - Skin Skin Exam: Pallor, Warm Assessment and Plan - Assessment and Plan (Free Text) Assessment: 51 y/o female with COPD , fatty liver, Chronic ETOH abuse ( daily 8 cups of 8 ounce vodka ) , smoker , chronic lower back pain brought to ER for evaluation by EMS for facial and lower extremity swelling , SOB and lower back pain. As per patient she has some baseline SOB with ambulation and has chronic lower back pain . Pt was having some lower back pain for which she took some Motrin and Advil PM. and when she woke up she noticed her face and eyes to be swollen and her lower extremities were swollen as well. She could not get out of bed and was having significant back pain . She admits to having increased SOB with cough last couple of days, denies any fever ,chills, nausea, vomiting, chest pain . No sputum production. Denies any sick contact or trauma.She was seen at [facility] 1 week ago for SOB and was given steroids and duonebs. EMS was called and she was brought to ER where she was found to be in respiratory distress,with dyspnea RR 35 O2sat 94 %, slightly hypotensive BP 96/ 65 tachycardic HR 122. She was given 2 Duonebs in the field, 125 mg IV solumedrol in ER , started on IVF and placed on High Flow O2 ,20 LPM FIO2 60 % Her ABG showed PO2 70 PCO2 35 pH 7.38 . CXR showed bilateral infiltrates worse on the right WBC found to be elevated 16.8 Hgb 10 BUN/Cr 20/1.4 rigoberto 6.6 ASt / ALT 150/26 lactic acid 2.6 ETOH levels 73 Physical exam significant for tremors , increased work of breathing , periorbital, facial and lower extremity edema, her breath smells alcohol She was admitted in ICU for close monitoring and treatment.She was transferred to telemetry but is very agitated , restless , confused , tachypneic and tachycardic today. Will transfer to ICU for close monitoring. 1. Severe Sepsis-- improving Most likely secondary to multifocal pneumonia patient was hypotensive,tachycardic,hypoxemic with WBC 16.8 and CXR showing bilateral infiltrates, lactate 2.6 Sputum cx positive for yeast Changed back to high flow today since her PO2 73 and she is tachypneic With significant dyspnea with minimal ambulation Continue Duonebs, IV vanco , Zosyn and Zithromax on Mucinex ID consult with Dr Escalera appreciated 2.Acute hypoxemic respiratory failure-PO2 73 today ph 7.29 Most likely secondary to multi lobar Pneumonia and COPD exacerbation on Duonebs ,Solumedrol IV 40 mg Q8 placed on High Flow O2 via NC 20 LPM FIO2 60 % CT chest showed multifocal infiltrates . Unable to perform CTA due to renal function Repeat CXR today showed improvemnet of infiltrates Transfer to ICU for close monitoring Pulmonary and ID consult appreciated Continue IV antibiotics, vanco, Zosyn and Zithromax and Duonebs will start Diflucan IV for yeast in sputum continue solumedrol 40 mg IV q8 3. Multifocal Pneumonia ID and pulmonary consulted on Vanco, Zosyn and Zithromax.Start Diflucan vanco trough 12 Sputum cx growing yeast patient is a long time smoker so will need to follow up resolution of infiltrates to rule out any underlying malignancy 4. Facial and lower extremity edema unclear etiology of facial edema --resolved TSH : normal Given Solumedrol 125 mg IV and continued 40 mg iv q8 for 2 days together with benadryl and famotidine discontinued famotidine and Benadryl LE venous doppler negative for DVT Echo showed normal LVF EF 65 -70 % given lasix 5. ETOH abuse / Impending DT-s patient still tremulous ,tachycardic ,confused with fine tremors continue Thiamine, Folic acid and MVI Continue hydration on Librium to 50 mg PO Q8 and Ativan PRN Transferred to ICU for close monitoring and possible Presedex sedation Seizure precautions/ withdrawal precautions 6. SUNDAR improving no prior records and unknown renal function 7.COPD mild exacerbation-- improved Duonebs , high flow pulmonary consulted counselled on smoking solumedrol 40 mg IV Q8 8. Alcoholic liver Bill 6.6 AST 150 on admission. rigoberto trending down to 2.9 CT chest showed hepatomegaly , fatty infiltration , some ascitic fluid and umbilical vein recannulization significant for portal hypertension \ US showed: Hepatomegaly with steatosis.Trace perihepatic ascites.Nonspecific gallbladder wall thickening. Gallbladder wall thickening is a nonspecific finding which can be seen with ascites, hepatitis, cholecystitis,CHF or hypoproteinemic states. patient has no abdominal pain , no fever , no signs of cholecystitis Continue monitoring 9. Chronic Lower back pain Ct chest also showing mild chronic compression fracture in mid thoracic spine Pain management Start Fentanyl patch to lower back pain management consult Continue morphine PRN PT eval 10.Anemia unclear etiology Normal Iron and B12 level 11. Hyperkalemia Blood sample hemolyzed 12. Smoker on nicotine patch 13. DVT prophylaxis GI prophylaxis Lovenox Pepcid
[2017-02-01] MEDS ORDERED: Fluconazole IV 100mg/50 ml NS 50 ML IVPB SCH (16:00)
[2017-02-01] MEDS ORDERED: methylPREDNISolone 20 MG in Sodium Chloride 0.9% 50 ML IV SCH (17:00)
[2017-02-01] MEDS ORDERED: Sodium Chloride 3% for Inhalation 4 ML VIAL.NEB IH PRN (17:29)
[2017-02-01] MEDS: Fluconazole IV 100mg/50 ml NS 50 ML IVPB SCH (19:03)
--- NOTE | 2017-02-01 21:20 | CON ---
DATE: 02/01/2017 CRITICAL CARE CONSULTATION LOCATION: Patient in ICU, bed 424. HISTORY OF PRESENT ILLNESS: Patient is seen and examined at the bedside. Events since admission reviewed. A 51-year-old female, moderately obese, smoker with a history of chronic obstructive pulmonary disease, chronic EtOH abuse, fatty liver, chronic liver disease, chronic lower backache, admitted on 01/27/2017 with respiratory failure, hypoxia, bilateral pneumonia, noted to have withdrawal since admission. This morning, patient is noted to be more tremulous and agitated, status post STONE HAND, transferred to ICU for further evaluation and follow up of her agitation. REVIEW OF SYSTEMS: No fever, chills. Occasional dry cough. No chest pain, palpitation. Noted to be tremulous. No abdominal discomfort, no diarrhea, no dysuria. ALLERGIES: NONE DOCUMENTED. CURRENT MEDICATIONS: Include Tylenol 650 q. 6 p.r.n. for pain, Tylenol 650 q. 6 p.r.n. for temp more than 100.4, DuoNeb 3 mL via nebulizer q. 4 hours, Zithromax 500 mg IV daily, Librium 50 mg q. 6, Colace 100 mg p.o. twice daily, Lovenox 30 subcu daily, fluticasone nasal spray 50 mcg one spray to both nostrils twice daily, folic acid 1 mg daily, guaifenesin 600 mg q. 12, Toradol 50 mg IV q. 6 p.r.n. for pain, lorazepam 1 mg p.o. t.i.d. p.r.n. for agitation, Solu-Medrol 40 mg IV q. 8, morphine 2 mg IV q. 6 p.r.n., nicotine patch 14 mg one patch daily, Zofran 4 mg IV q. 6 p.r.n., Zosyn 3.375 g IV q. 8, Advair one puff q. 12, thiamine B1 100 mg daily, vancomycin 1 g IV daily. PHYSICAL EXAMINATION: GENERAL: Moderately obese middle-aged female, sleeping and drowsy, sedated to recently given morphine, no distress noted. VITAL SIGNS: Temperature 98.7; heart rate 105; blood pressure 115/69; mean arterial pressure 84; respiratory rate 16, thoracoabdominal; saturation 98% on high flow nasal oxygen 20 L, 60%. HEAD, EYES, EARS, NOSE, AND THROAT: Pupils are reactive. Conjunctivae are pale. Sclerae are muddy. NECK: Supple. Trachea central. CHEST: Bilateral breath sounds. Scattered rhonchi. Prolonged expiration. HEART: Rhythm regular, S1 and S2 rapid. ABDOMEN: Bowel sounds present, soft. No palpable mass. EXTREMITIES: Trace edema. NEUROLOGIC: Moves all 4 extremities. No motor impairment. Patellar reflex 2+, plantar flexor. LABORATORY DATA: Nasal smear MRSA, negative. Sputum culture positive for yeast species. Chest x-ray done from this morning shows mild cardiomegaly, bilateral infiltrate, diminished from baseline on admission. Ultrasound of the gallbladder done on 01/27/2017 shows gallbladder wall thickening without gallstones. CT chest showed no acute pulmonary embolism. Echocardiogram showed ejection fraction 65% to 70%, left ventricular size is normal, normal LV wall thickness, normal LV segment wall motion, left ventricular systolic function is normal. Extremity ultrasound, no evidence of deep venous thrombosis. IMPRESSION: 1. Neurologic: Agitation, tremulous related to withdrawal symptoms, history of ethyl alcohol dependence and analgesics for chronic backache, likely narcotic withdrawal as well. 2. Bilateral pneumonia with hypoxemia, contributing to change in the mental status, history of chronic obstructive pulmonary disease and chronic smoker. 3. Cardiac: Tachycardia, probably related to withdrawal symptoms. 4. Infectious Disease: Bilateral resolving pneumonia, community-acquired, on vancomycin, Zosyn, and Zithromax. 5. Renal: No acute issues noted. 6. Endocrine: Maintain blood sugar less than 180. No history of hyperglycemia. 7. Gastrointestinal: Chronic ethyl alcohol related liver disease with hyperbilirubinemia and abnormal liver function test. Ammonia level 29. 8. Psychiatric: Abnormal behavior, withdrawal symptoms related to alcohol, narcotics, and nicotine. 9. Hematology: Leukocytosis secondary to pneumonia, anemia of chronic disease, rule out occult gastrointestinal blood loss. PLAN: 1. Closely monitor respiratory status, continue high flow nasal oxygen. 2. Monitor for withdrawal symptoms. Continue Librium 50 mg q. 6 hours, Ativan 2 mg IV q. 6 p.r.n., thiamine, multivitamin, and folic acid daily. Continue antibiotic to complete a course for suspected community-acquired pneumonia. Consider pain management consult to address the chronic pain syndrome. Cy Moss MD [facility] # [id number]
[2017-02-02] MEDS: Albuterol-Ipratrop 3 mg / 0.5 (3 ml) UD INH SCH ×7 (00:10→23:40)
[2017-02-02] MEDS ORDERED: Dexmedetomidine Hydrochloride 400 MCG in Sodium Chloride 0.9% 96 ML IV ONE ×4 (01:00→16:58)
[2017-02-02] MEDS: Piperacillin/Tazobact 3.375 GM in Sodium Chloride 0.9% 100 ML IVPB SCH ×3 (01:09→16:25)
[2017-02-02] MEDS ORDERED: Dexmedetomidine Hydrochloride 400 MCG in Sodium Chloride 0.9% 96 ML IV SCH (03:10)
[2017-02-02 05:47] LABS: ABG ALLEN TEST YES; ARTERIAL BLOOD FLOW 20; ARTERIAL BLOOD GAS HCO3 27.6 mmol/L (21-28); ARTERIAL BLOOD GAS MODE HIGH FLOW LPM; ARTERIAL BLOOD GAS O2 CAPACITY 12.4 mL/dL (16-24); ARTERIAL BLOOD GAS O2 CONTENT 12.2 ML/dL (15-23); ARTERIAL BLOOD GAS PH 7.31 (7.35-7.45); ARTERIAL BLOOD GAS PO2 77 mm/Hg (80-100); ARTERIAL BLOOD HGB O2 SAT 94.7 % (95.0-98.0); CARBOXYHEMOGLOBIN 2.6 % (0.5-1.5); HHB 1.5 % (0.0-5.0); METHEMOGLOBIN 1.2 % (0.0-3.0)
[2017-02-02 06:46] LABS: HEMATOCRIT 26.4 % (34.0-47.0); MEAN CELL VOLUME 105.7 fl (81.0-99.0); MEAN CORPUSCULAR HGB CONC 33.1 g/dL (33.0-37.0); RED CELL DISTRIBUTION WIDTH 15.9 % (11.5-14.5)
[2017-02-02 06:56] LABS: ALB/GLOB RATIO 0.8 (1.0-2.1); ALKALINE PHOSPHATASE 105 U/L (38-126); ALT/SGPT 57 U/L (9-52); AST/SGOT 96 U/L (14-36); BILIRUBIN,TOTAL 2.7 mg/dl (0.2-1.3); BLOOD UREA NITROGEN 37 mg/dl (7-17); CALCIUM 9.1 mg/dL (8.4-10.2); CARBON DIOXIDE 28 mmol/L (22-30); CHLORIDE 109 mmol/L (98-107); GFR AFRICAN-AMERICAN > 60; GLUCOSE,RANDOM 136 mg/dL (65-105); POTASSIUM 4.2 MMOL/L (3.6-5.0); SODIUM 145 mmol/l (132-148); TOTAL PROTEIN 7.1 G/DL (6.3-8.2)
[2017-02-02] MEDS ORDERED: Enoxaparin 30 mg Syringe SC SCH (09:00)
[2017-02-02] MEDS: Fluticasone-Salmeterol 250-50mcg Diskus IH SCH ×2 (09:30→21:36)
[2017-02-02] MEDS: guaiFENesin 600 mg ER Tab PO SCH ×2 (09:32→21:36)
[2017-02-02] MEDS: Multivitamin With Minerals Tab PO SCH (09:33)
--- NOTE | 2017-02-02 09:36 | CP.PCM.CON ---
History of Present Illness - History of Present Illness History of Present Illness: 51 yo woman w/ multiple medical facilities undergoing DT is referred for pain management. Patient is now under precedex gtt for sedation. Per chart, patient had mild chronic thoracic compression fractures. However, they are not likely to cause severe pain and do not warrant intervention due to their chronicity. Fentanyl patch was started as well. Her VSS have been stable. Past Patient History - Infectious Disease Hx of Infectious Diseases: None - Tetanus Immunizations Tetanus Immunization: Unknown - Past Medical History & Family History Past Medical History?: Yes - Past Social History Smoking Status: Current Some Days Smoker Chewing Tobacco Use: No Cigar Use: No Alcohol: > 2 Drinks/Day Home Situation {Lives}: With Family Domestic Violence: Negative - CARDIAC Hx Cardiac Disorders: No - PULMONARY Hx Chronic Obstructive Pulmonary Disease (COPD): Yes - NEUROLOGICAL Hx Neurological Disorder: No - HEENT Hx HEENT Problems: No - RENAL Hx Chronic Kidney Disease: No - ENDOCRINE/METABOLIC Hx Endocrine Disorders: No - HEMATOLOGICAL/ONCOLOGICAL Hx Blood Disorders: No - INTEGUMENTARY Hx Dermatological Problems: No - MUSCULOSKELETAL/RHEUMATOLOGICAL Hx Back Pain: Yes (lower back pain ) - GASTROINTESTINAL Hx Fatty Liver Disease: Yes - GENITOURINARY/GYNECOLOGICAL Hx Genitourinary Disorders: No - PSYCHIATRIC Hx Substance Use: No - SURGICAL HISTORY Hx Surgeries: No - ANESTHESIA Hx Anesthesia: No Meds Allergies/Adverse Reactions: Allergies Allergy/AdvReac Type Severity Reaction Status Date / Time No Known Allergies Allergy Verified 01/27/17 12:43 - Medications Medications: Current Medications Acetaminophen (Tylenol 325mg Tab) 650 mg PO Q6H PRN PRN Reason: Pain, Mild (1-3) Acetaminophen (Tylenol 325mg Tab) 650 mg PO Q6H PRN PRN Reason: Fever >100.4 F Albuterol/Ipratropium (Duoneb 3 Mg/0.5 Mg (3 Ml) Ud) 3 ml INH RQ4 [facility] Last Admin: 02/02/17 08:02 Dose: 3 ml Chlordiazepoxide (Librium) 50 mg PO Q6 [facility] Last Admin: 02/02/17 04:11 Dose: Not Given Docusate Sodium (Colace) 100 mg PO BID PRN PRN Reason: Constipation Enoxaparin Sodium (Lovenox) 30 mg SC DAILY [facility] PRN Reason: Protocol Fentanyl (Duragesic) 1 patch TD Q3D [facility] PRN Reason: Protocol Folic Acid (Folic Acid) 1 mg PO DAILY [facility] Guaifenesin (Mucinex La) 600 mg PO Q12 [facility] Last Admin: 02/01/17 20:35 Dose: Not Given Fluconazole (Diflucan Iv 100 Mg/50 Ml Ns) 50 mls @ 50 mls/hr IVPB DAILY [facility] PRN Reason: Protocol Last Admin: 02/01/17 19:03 Dose: 50 mls/hr Vancomycin HCl 1 gm/ Sodium (Chloride) 250 mls @ 166.667 mls/hr IVPB DAILY [facility] PRN Reason: Protocol Azithromycin 500 mg/ Sodium (Chloride) 250 mls @ 250 mls/hr IVPB DAILY [facility] PRN Reason: Protocol Piperacillin Sod/Tazobactam (Sod 3.375 gm/ Sodium Chloride) 100 mls @ 100 mls/ hr IVPB Q8 [facility] PRN Reason: Protocol Last Admin: 02/02/17 01:09 Dose: 100 mls/hr Ketorolac Tromethamine (Toradol) 15 mg IVP Q6 PRN PRN Reason: Pain, moderate (4-7) Lorazepam (Ativan) 1 mg PO TID PRN PRN Reason: Agitation Methylprednisolone (Solu-Medrol) 20 mg IVP Q8H [facility] Last Admin: 02/01/17 23:47 Dose: 20 mg Morphine Sulfate (Morphine) 2 mg IVP Q4 PRN PRN Reason: Pain, severe (8-10) Last Admin: 02/02/17 00:30 Dose: 2 mg Multivitamins/Minerals (Therapeutic-M Tab) 1 tab PO DAILY [facility] Nicotine (Nicoderm Cq) 1 patch TD DAILY [facility] Ondansetron HCl (Zofran Inj) 4 mg IVP Q6H PRN PRN Reason: Nausea/Vomiting Fluticasone/Salmeterol (Advair Diskus 250/50) 1 puff IH Q12 [facility] Last Admin: 02/01/17 20:34 Dose: Not Given Thiamine HCl (Vitamin B1 Tab) 100 mg PO DAILY [facility] Physical Exam - Constitutional Additional comments: Under sedation. Results - Vital Signs Recent Vital Signs: Last Vital Signs Temp 97.4 F L 02/02/17 08:00 Pulse 68 02/02/17 08:00 Resp 16 02/02/17 08:03 BP 122/76 02/02/17 08:00 Pulse Ox 100 02/02/17 08:00 - Labs Result Diagrams: 02/02/17 04:10 02/02/17 04:10 Labs: Laboratory Results - last 24 hr 01/29/17 02/01/17 02/01/17 05:30 17:16 19:00 WBC RBC Hgb Hct MCV MCH MCHC RDW Plt Count pCO2 pO2 HCO3 ABG pH ABG Total CO2 ABG O2 Saturation ABG O2 Content ABG Base Excess ABG Hemoglobin ABG Carboxyhemoglobin POC ABG HHb (Measured) ABG Methemoglobin ABG O2 Capacity Dick Test A-a O2 Difference Hgb O2 Saturation Liter Flow Vent Mode FiO2 Sodium Potassium Chloride Carbon Dioxide Anion Gap BUN Creatinine Est GFR ( Amer) Est GFR (Non-Af Amer) POC Glucose (mg/dL) 145 H Random Glucose Lactic Acid 0.9 Calcium Total Bilirubin AST ALT Alkaline Phosphatase Total Protein Albumin Globulin Albumin/Globulin Ratio Mycoplasma pneumon IgM 33 02/01/17 02/02/17 02/02/17 21:40 04:10 04:10 WBC 9.0 D RBC 2.50 L Hgb 8.7 L Hct 26.4 L MCV 105.7 H MCH 35.0 H MCHC 33.1 RDW 15.9 H Plt Count 91 L D pCO2 pO2 HCO3 ABG pH ABG Total CO2 ABG O2 Saturation ABG O2 Content ABG Base Excess ABG Hemoglobin ABG Carboxyhemoglobin POC ABG HHb (Measured) ABG Methemoglobin ABG O2 Capacity Dick Test A-a O2 Difference Hgb O2 Saturation Liter Flow Vent Mode FiO2 Sodium 145 Potassium 4.2 Chloride 109 H Carbon Dioxide 28 Anion Gap 12 BUN 37 H Creatinine 0.9 Est GFR ( Amer) > 60 Est GFR (Non-Af Amer) > 60 POC Glucose (mg/dL) 131 H Random Glucose 136 H Lactic Acid Calcium 9.1 Total Bilirubin 2.7 H AST 96 H ALT 57 H D Alkaline Phosphatase 105 Total Protein 7.1 Albumin 3.2 L Globulin 3.9 Albumin/Globulin Ratio 0.8 L Mycoplasma pneumon IgM 02/02/17 02/02/17 02/02/17 04:10 04:25 05:18 WBC RBC Hgb Hct MCV MCH MCHC RDW Plt Count pCO2 61 H pO2 77 L HCO3 27.6 ABG pH 7.31 L ABG Total CO2 32.6 H ABG O2 Saturation 98.4 H ABG O2 Content 12.2 L ABG Base Excess 3.5 H ABG Hemoglobin 9.1 L ABG Carboxyhemoglobin 2.6 H POC ABG HHb (Measured) 1.5 ABG Methemoglobin 1.2 ABG O2 Capacity 12.4 L Dick Test Yes A-a O2 Difference 275.0 Hgb O2 Saturation 94.7 L Liter Flow 20 Vent Mode High flow lpm FiO2 60.0 Sodium Potassium Chloride Carbon Dioxide Anion Gap BUN Creatinine Est GFR ( Amer) Est GFR (Non-Af Amer) POC Glucose (mg/dL) 144 H Random Glucose Lactic Acid 0.6 L Calcium Total Bilirubin AST ALT Alkaline Phosphatase Total Protein Albumin Globulin Albumin/Globulin Ratio Mycoplasma pneumon IgM Assessment & Plan (1) Bilateral pneumonia Assessment and Plan: 51 yo woman w/ multiple co-morbidities has sepsis/PNA, actively undergoing DT. The compression fractures are mild and chronic, they probably aren't causing severe pain and do not warrant intervention anyway. - observe response to Fentanyl patch - would keep pain medication PRN and short-acting ideally in the current clinical setting Status: Acute
[2017-02-02] MEDS: MethylPREDNISolone 40 mg Vial IVP SCH ×3 (09:37→23:36)
[2017-02-02] MEDS: Fluconazole IV 100mg/50 ml NS 50 ML IVPB SCH (09:54)
[2017-02-02] MEDS: Azithromycin 500 MG in Sodium Chloride 0.9% 250 ML IVPB SCH (09:54)
--- NOTE | 2017-02-02 12:49 | CP.CCUPN ---
CCU Subjective - Physician Review Subjective (Free Text): Precedex started overnight for control of agitation and DT sequelae. Remains sedated, arousable from RASS neg 3 state, does not appear distressed. No other complaints noted. Other vitals and I/O's reviewed. ROS: No other pertinent negs or positives on 10+ system review. PMSFH: All Nursing and physician documentation reviewed to date; no new pertinent info noted relevant to current medical problems. CXR: Left basilar atelectasis, perihilar-R worse than L interstitial changes ( my interp). IMPRESSION / MAJOR PROBLEMS NOW: 1. Acute Hypoxemic Resp Failure 2. Bilateral Pneumonia 3. Azotemia / Dehydration, with Hyperkalemia; r/o CKD 4. Chronic ETOH Intoxication with Delirium Tremans 5. Anemia, with mixed Indices; unclear acute vs. chronic disease type 6. Hyperbilirubinemia PLAN: 1. Sedation vacation later from Precedex, then would continue for at least 24- 48h. 2. Hold Fentanyl patch, Precedex has some analgesic properties. Pain mgmt. eval reviewed. 3. Continue with Librium if tolerated. 4. Empiric Zosyn/Vanco 5. Watch for need for assisted ventilatory support. Watch PCO2 levels. 6. LMWH on hold, await HIT Ab results. Otherwise low platelets 2 Zosyn. 7. Steroids, Duonebs ongoing. CCU Objective - Vital Signs / Intake & Output Vital Signs (Last 4 hours): Vital Signs Temp Pulse Resp BP Pulse Ox 02/02/17 12:00 97.3 F L 69 49 H 112/70 99 02/02/17 10:53 18 02/02/17 10:00 66 22 122/72 99 02/02/17 09:00 67 10 L 123/68 100 Intake and Output (Last 8hrs): Intake & Output 02/01/17 02/02/17 02/02/17 22:59 06:59 14:59 Intake Total 100 140 Balance 100 140 Weight 228 lb Intake: IV 0 Intake, Piggyback 100 140 Other: # Bowel Movements 0 - Physical Exam Head: Positive for: Atraumatic, Normocephalic Pupils: Positive for: PERRL Extroacular Muscles: Positive for: EOMI. Negative for: Gaze Palsy Conjunctiva: Positive for: Icteric Mouth: Positive for: Moist Mucous Membranes Pharnyx: Positive for: Normal Neck: Negative for: JVD, Lymphadenopathy Respiratory/Chest: Positive for: Wheezes, Decreased Breath Sounds. Negative for : Accessory Muscle Use Cardiovascular: Positive for: Regular Rate and Rhythm, Tachycardic. Negative for: Murmurs, Rub Abdomen: Positive for: Normal Bowel Sounds, Other (obese). Negative for: Tenderness, Distention, Mass/Organomegaly Lower Extremity: Positive for: Edema, NORMAL PULSES. Negative for: CALF TENDERNESS, Cyanosis Neurological: Positive for: GCS=15, Motor Func Grossly Intact, Normal Sensory Function Skin: Positive for: Warm, Dry, Other (3 ecchymotic areas along Right lateral back area). Negative for: Rashes Psychiatric: Positive for: Alert, Oriented x 3 - Medications Active Medications: Active Medications Generic Name Dose Route Start Last Admin Trade Name Freq PRN Reason Stop Dose Admin Acetaminophen 650 mg 02/01/17 17:29 Tylenol 325mg Tab PO Q6H PRN Pain, Mild (1-3) Acetaminophen 650 mg 02/01/17 17:29 Tylenol 325mg Tab PO Q6H PRN Fever >100.4 F Albuterol/Ipratropium 3 ml 02/01/17 20:00 02/02/17 11:16 Duoneb 3 Mg/0.5 Mg (3 Ml) Ud INH 3 ml RQ4 [facility] Administration Chlordiazepoxide 50 mg 02/01/17 22:00 02/02/17 09:31 Librium PO Not Given Q6 [facility] Docusate Sodium 100 mg 02/01/17 17:29 Colace PO BID PRN Constipation Enoxaparin Sodium 30 mg 02/02/17 09:00 Lovenox SC DAILY [facility] Protocol Folic Acid 1 mg 02/02/17 09:00 02/02/17 09:31 Folic Acid PO Not Given DAILY [facility] Guaifenesin 600 mg 02/01/17 21:00 02/02/17 09:32 Mucinex La PO Not Given Q12 [facility] Fluconazole 50 mls @ 50 mls/hr 02/02/17 09:00 02/02/17 09:54 Diflucan Iv 100 Mg/50 Ml Ns IVPB 50 mls/hr DAILY [facility] Administration Protocol Vancomycin HCl 1 gm/ Sodium 250 mls @ 166.667 mls/hr 02/02/17 09:00 02/02/17 09:55 Chloride IVPB 166.667 mls/hr DAILY [facility] Administration Protocol Azithromycin 500 mg/ Sodium 250 mls @ 250 mls/hr 02/02/17 09:00 02/02/17 09: 54 Chloride IVPB 250 mls/hr DAILY [facility] Administration Protocol Piperacillin Sod/Tazobactam 100 mls @ 100 mls/hr 02/02/17 01:00 02/02/17 09: 56 Sod 3.375 gm/ Sodium Chloride IVPB 100 mls/hr Q8 [facility] Administration Protocol Ketorolac Tromethamine 15 mg 02/01/17 17:29 Toradol IVP Q6 PRN Pain, moderate (4-7) Lorazepam 1 mg 02/01/17 17:29 Ativan PO TID PRN Agitation Methylprednisolone 20 mg 02/01/17 23:30 02/02/17 09:37 Solu-Medrol IVP 20 mg Q8H [facility] Administration Morphine Sulfate 2 mg 02/01/17 17:29 02/02/17 00:30 Morphine IVP 2 mg Q4 PRN Administration Pain, severe (8-10) Multivitamins/Minerals 1 tab 02/02/17 09:00 02/02/17 09:33 Therapeutic-M Tab PO Not Given DAILY [facility] Nicotine 1 patch 02/02/17 09:00 02/02/17 09:32 Nicoderm Cq TD 1 patch DAILY [facility] Administration Ondansetron HCl 4 mg 02/01/17 17:29 Zofran Inj IVP Q6H PRN Nausea/Vomiting Fluticasone/Salmeterol 1 puff 02/01/17 21:00 02/02/17 09:30 Advair Diskus 250/50 IH Not Given Q12 [facility] Thiamine HCl 100 mg 02/02/17 09:00 02/02/17 09:33 Vitamin B1 Tab PO Not Given DAILY [facility] - Patient Studies Lab Studies: Lab Studies 02/02/17 02/02/17 02/02/17 Range/Units 11:08 05:18 04:25 WBC (4.8-10.8) K/uL RBC (3.80-5.20) Mil/uL Hgb (12.0-16.0) g/dL Hct (34.0-47.0) % MCV (81.0-99.0) fl MCH (27.0-31.0) pg MCHC (33.0-37.0) g/dL RDW (11.5-14.5) % Plt Count (130-400) K/uL pCO2 61 H (35-45) mm/Hg pO2 77 L (80-100) mm/Hg HCO3 27.6 (21-28) mmol/L ABG pH 7.31 L (7.35-7.45) ABG Total CO2 32.6 H (22-28) mmol/L ABG O2 Saturation 98.4 H (95-98) % ABG O2 Content 12.2 L (15-23) ML/dL ABG Base Excess 3.5 H (-2.0-3.0) mmol/L ABG Hemoglobin 9.1 L (11.7-17.4) g/dL ABG Carboxyhemoglobin 2.6 H (0.5-1.5) % POC ABG HHb (Measured) 1.5 (0.0-5.0) % ABG Methemoglobin 1.2 (0.0-3.0) % ABG O2 Capacity 12.4 L (16-24) mL/dL Dick Test Yes A-a O2 Difference 275.0 mm/Hg Hgb O2 Saturation 94.7 L (95.0-98.0) % Liter Flow 20 Vent Mode High flow lpm FiO2 60.0 % Sodium (132-148) mmol/l Potassium (3.6-5.0) MMOL/L Chloride (98-107) mmol/L Carbon Dioxide (22-30) mmol/L Anion Gap (10-20) BUN (7-17) mg/dl Creatinine (0.7-1.2) mg/dl Est GFR ( Amer) Est GFR (Non-Af Amer) POC Glucose (mg/dL) 177 H 144 H (65-110) mg/dL Random Glucose (65-105) mg/dL Lactic Acid (0.7-2.1) MMOL/L Calcium (8.4-10.2) mg/dL Total Bilirubin (0.2-1.3) mg/dl AST (14-36) U/L ALT (9-52) U/L Alkaline Phosphatase (38-126) U/L Total Protein (6.3-8.2) G/DL Albumin (3.5-5.0) g/dL Globulin (2.2-3.9) gm/dL Albumin/Globulin Ratio (1.0-2.1) Mycoplasma pneumon IgM (<770) U/mL 02/02/17 02/02/17 02/02/17 Range/Units 04:10 04:10 04:10 WBC 9.0 D (4.8-10.8) K/uL RBC 2.50 L (3.80-5.20) Mil/uL Hgb 8.7 L (12.0-16.0) g/dL Hct 26.4 L (34.0-47.0) % MCV 105.7 H (81.0-99.0) fl MCH 35.0 H (27.0-31.0) pg MCHC 33.1 (33.0-37.0) g/dL RDW 15.9 H (11.5-14.5) % Plt Count 91 L D (130-400) K/uL pCO2 (35-45) mm/Hg pO2 (80-100) mm/Hg HCO3 (21-28) mmol/L ABG pH (7.35-7.45) ABG Total CO2 (22-28) mmol/L ABG O2 Saturation (95-98) % ABG O2 Content (15-23) ML/dL ABG Base Excess (-2.0-3.0) mmol/L ABG Hemoglobin (11.7-17.4) g/dL ABG Carboxyhemoglobin (0.5-1.5) % POC ABG HHb (Measured) (0.0-5.0) % ABG Methemoglobin (0.0-3.0) % ABG O2 Capacity (16-24) mL/dL Dick Test A-a O2 Difference mm/Hg Hgb O2 Saturation (95.0-98.0) % Liter Flow Vent Mode FiO2 % Sodium 145 (132-148) mmol/l Potassium 4.2 (3.6-5.0) MMOL/L Chloride 109 H (98-107) mmol/L Carbon Dioxide 28 (22-30) mmol/L Anion Gap 12 (10-20) BUN 37 H (7-17) mg/dl Creatinine 0.9 (0.7-1.2) mg/dl Est GFR ( Amer) > 60 Est GFR (Non-Af Amer) > 60 POC Glucose (mg/dL) (65-110) mg/dL Random Glucose 136 H (65-105) mg/dL Lactic Acid 0.6 L (0.7-2.1) MMOL/L Calcium 9.1 (8.4-10.2) mg/dL Total Bilirubin 2.7 H (0.2-1.3) mg/dl AST 96 H (14-36) U/L ALT 57 H D (9-52) U/L Alkaline Phosphatase 105 (38-126) U/L Total Protein 7.1 (6.3-8.2) G/DL Albumin 3.2 L (3.5-5.0) g/dL Globulin 3.9 (2.2-3.9) gm/dL Albumin/Globulin Ratio 0.8 L (1.0-2.1) Mycoplasma pneumon IgM (<770) U/mL 02/01/17 02/01/17 02/01/17 Range/Units 21:40 19:00 17:16 WBC (4.8-10.8) K/uL RBC (3.80-5.20) Mil/uL Hgb (12.0-16.0) g/dL Hct (34.0-47.0) % MCV (81.0-99.0) fl MCH (27.0-31.0) pg MCHC (33.0-37.0) g/dL RDW (11.5-14.5) % Plt Count (130-400) K/uL pCO2 (35-45) mm/Hg pO2 (80-100) mm/Hg HCO3 (21-28) mmol/L ABG pH (7.35-7.45) ABG Total CO2 (22-28) mmol/L ABG O2 Saturation (95-98) % ABG O2 Content (15-23) ML/dL ABG Base Excess (-2.0-3.0) mmol/L ABG Hemoglobin (11.7-17.4) g/dL ABG Carboxyhemoglobin (0.5-1.5) % POC ABG HHb (Measured) (0.0-5.0) % ABG Methemoglobin (0.0-3.0) % ABG O2 Capacity (16-24) mL/dL Dick Test A-a O2 Difference mm/Hg Hgb O2 Saturation (95.0-98.0) % Liter Flow Vent Mode FiO2 % Sodium (132-148) mmol/l Potassium (3.6-5.0) MMOL/L Chloride (98-107) mmol/L Carbon Dioxide (22-30) mmol/L Anion Gap (10-20) BUN (7-17) mg/dl Creatinine (0.7-1.2) mg/dl Est GFR ( Amer) Est GFR (Non-Af Amer) POC Glucose (mg/dL) 131 H 145 H (65-110) mg/dL Random Glucose (65-105) mg/dL Lactic Acid 0.9 (0.7-2.1) MMOL/L Calcium (8.4-10.2) mg/dL Total Bilirubin (0.2-1.3) mg/dl AST (14-36) U/L ALT (9-52) U/L Alkaline Phosphatase (38-126) U/L Total Protein (6.3-8.2) G/DL Albumin (3.5-5.0) g/dL Globulin (2.2-3.9) gm/dL Albumin/Globulin Ratio (1.0-2.1) Mycoplasma pneumon IgM (<770) U/mL 01/29/17 Range/Units 05:30 WBC (4.8-10.8) K/uL RBC (3.80-5.20) Mil/uL Hgb (12.0-16.0) g/dL Hct (34.0-47.0) % MCV (81.0-99.0) fl MCH (27.0-31.0) pg MCHC (33.0-37.0) g/dL RDW (11.5-14.5) % Plt Count (130-400) K/uL pCO2 (35-45) mm/Hg pO2 (80-100) mm/Hg HCO3 (21-28) mmol/L ABG pH (7.35-7.45) ABG Total CO2 (22-28) mmol/L ABG O2 Saturation (95-98) % ABG O2 Content (15-23) ML/dL ABG Base Excess (-2.0-3.0) mmol/L ABG Hemoglobin (11.7-17.4) g/dL ABG Carboxyhemoglobin (0.5-1.5) % POC ABG HHb (Measured) (0.0-5.0) % ABG Methemoglobin (0.0-3.0) % ABG O2 Capacity (16-24) mL/dL Dick Test A-a O2 Difference mm/Hg Hgb O2 Saturation (95.0-98.0) % Liter Flow Vent Mode FiO2 % Sodium (132-148) mmol/l Potassium (3.6-5.0) MMOL/L Chloride (98-107) mmol/L Carbon Dioxide (22-30) mmol/L Anion Gap (10-20) BUN (7-17) mg/dl Creatinine (0.7-1.2) mg/dl Est GFR ( Amer) Est GFR (Non-Af Amer) POC Glucose (mg/dL) (65-110) mg/dL Random Glucose (65-105) mg/dL Lactic Acid (0.7-2.1) MMOL/L Calcium (8.4-10.2) mg/dL Total Bilirubin (0.2-1.3) mg/dl AST (14-36) U/L ALT (9-52) U/L Alkaline Phosphatase (38-126) U/L Total Protein (6.3-8.2) G/DL Albumin (3.5-5.0) g/dL Globulin (2.2-3.9) gm/dL Albumin/Globulin Ratio (1.0-2.1) Mycoplasma pneumon IgM 33 (<770) U/mL Laboratory Results - last 24 hr 01/29/17 02/01/17 02/01/17 05:30 17:16 19:00 WBC RBC Hgb Hct MCV MCH MCHC RDW Plt Count pCO2 pO2 HCO3 ABG pH ABG Total CO2 ABG O2 Saturation ABG O2 Content ABG Base Excess ABG Hemoglobin ABG Carboxyhemoglobin POC ABG HHb (Measured) ABG Methemoglobin ABG O2 Capacity Dick Test A-a O2 Difference Hgb O2 Saturation Liter Flow Vent Mode FiO2 Sodium Potassium Chloride Carbon Dioxide Anion Gap BUN Creatinine Est GFR ( Amer) Est GFR (Non-Af Amer) POC Glucose (mg/dL) 145 H Random Glucose Lactic Acid 0.9 Calcium Total Bilirubin AST ALT Alkaline Phosphatase Total Protein Albumin Globulin Albumin/Globulin Ratio Mycoplasma pneumon IgM 33 02/01/17 02/02/17 02/02/17 21:40 04:10 04:10 WBC 9.0 D RBC 2.50 L Hgb 8.7 L Hct 26.4 L MCV 105.7 H MCH 35.0 H MCHC 33.1 RDW 15.9 H Plt Count 91 L D pCO2 pO2 HCO3 ABG pH ABG Total CO2 ABG O2 Saturation ABG O2 Content ABG Base Excess ABG Hemoglobin ABG Carboxyhemoglobin POC ABG HHb (Measured) ABG Methemoglobin ABG O2 Capacity Dick Test A-a O2 Difference Hgb O2 Saturation Liter Flow Vent Mode FiO2 Sodium 145 Potassium 4.2 Chloride 109 H Carbon Dioxide 28 Anion Gap 12 BUN 37 H Creatinine 0.9 Est GFR ( Amer) > 60 Est GFR (Non-Af Amer) > 60 POC Glucose (mg/dL) 131 H Random Glucose 136 H Lactic Acid Calcium 9.1 Total Bilirubin 2.7 H AST 96 H ALT 57 H D Alkaline Phosphatase 105 Total Protein 7.1 Albumin 3.2 L Globulin 3.9 Albumin/Globulin Ratio 0.8 L Mycoplasma pneumon IgM 02/02/17 02/02/17 02/02/17 04:10 04:25 05:18 WBC RBC Hgb Hct MCV MCH MCHC RDW Plt Count pCO2 61 H pO2 77 L HCO3 27.6 ABG pH 7.31 L ABG Total CO2 32.6 H ABG O2 Saturation 98.4 H ABG O2 Content 12.2 L ABG Base Excess 3.5 H ABG Hemoglobin 9.1 L ABG Carboxyhemoglobin 2.6 H POC ABG HHb (Measured) 1.5 ABG Methemoglobin 1.2 ABG O2 Capacity 12.4 L Dick Test Yes A-a O2 Difference 275.0 Hgb O2 Saturation 94.7 L Liter Flow 20 Vent Mode High flow lpm FiO2 60.0 Sodium Potassium Chloride Carbon Dioxide Anion Gap BUN Creatinine Est GFR ( Amer) Est GFR (Non-Af Amer) POC Glucose (mg/dL) 144 H Random Glucose Lactic Acid 0.6 L Calcium Total Bilirubin AST ALT Alkaline Phosphatase Total Protein Albumin Globulin Albumin/Globulin Ratio Mycoplasma pneumon IgM 02/02/17 11:08 WBC RBC Hgb Hct MCV MCH MCHC RDW Plt Count pCO2 pO2 HCO3 ABG pH ABG Total CO2 ABG O2 Saturation ABG O2 Content ABG Base Excess ABG Hemoglobin ABG Carboxyhemoglobin POC ABG HHb (Measured) ABG Methemoglobin ABG O2 Capacity Dick Test A-a O2 Difference Hgb O2 Saturation Liter Flow Vent Mode FiO2 Sodium Potassium Chloride Carbon Dioxide Anion Gap BUN Creatinine Est GFR ( Amer) Est GFR (Non-Af Amer) POC Glucose (mg/dL) 177 H Random Glucose Lactic Acid Calcium Total Bilirubin AST ALT Alkaline Phosphatase Total Protein Albumin Globulin Albumin/Globulin Ratio Mycoplasma pneumon IgM Fingerstick Blood Sugar Results: 144 Review of Systems - Review of Systems All systems: reviewed and no additional remarkable complaints except (as above) Critical Care Progress Note - Nutrition Nutrition: Nutrition Category Date Time Status Regular Diet [DIET] Diets 01/27/17 Lunch Active
--- NOTE | 2017-02-02 12:49 | CP.PCM.PN ---
Subjective - Date & Time of Evaluation Date of Evaluation: 02/02/17 Time of Evaluation: 11:00 - Subjective Subjective: Pt is sedated, responds to pain On High Flow Oxygen 60% FiO2 On Precedx drip No fever Noted low Platelet- Lovenox held Objective - Vital Signs/Intake and Output Vital Signs (last 24 hours): Temp Pulse Resp BP Pulse Ox 97.3 F L 69 49 H 112/70 99 02/02/17 12:00 02/02/17 12:00 02/02/17 12:00 02/02/17 12:00 02/02/17 12:00 Intake and Output: 02/02/17 02/02/17 06:59 18:59 Intake Total 140 Balance 140 - Medications Medications: Current Medications Acetaminophen (Tylenol 325mg Tab) 650 mg PO Q6H PRN PRN Reason: Pain, Mild (1-3) Acetaminophen (Tylenol 325mg Tab) 650 mg PO Q6H PRN PRN Reason: Fever >100.4 F Albuterol/Ipratropium (Duoneb 3 Mg/0.5 Mg (3 Ml) Ud) 3 ml INH RQ4 [facility] Last Admin: 02/02/17 11:16 Dose: 3 ml Chlordiazepoxide (Librium) 50 mg PO Q6 [facility] Last Admin: 02/02/17 09:31 Dose: Not Given Docusate Sodium (Colace) 100 mg PO BID PRN PRN Reason: Constipation Enoxaparin Sodium (Lovenox) 30 mg SC DAILY [facility] PRN Reason: Protocol Folic Acid (Folic Acid) 1 mg PO DAILY [facility] Last Admin: 02/02/17 09:31 Dose: Not Given Guaifenesin (Mucinex La) 600 mg PO Q12 [facility] Last Admin: 02/02/17 09:32 Dose: Not Given Fluconazole (Diflucan Iv 100 Mg/50 Ml Ns) 50 mls @ 50 mls/hr IVPB DAILY [facility] PRN Reason: Protocol Last Admin: 02/02/17 09:54 Dose: 50 mls/hr Vancomycin HCl 1 gm/ Sodium (Chloride) 250 mls @ 166.667 mls/hr IVPB DAILY [facility] PRN Reason: Protocol Last Admin: 02/02/17 09:55 Dose: 166.667 mls/hr Azithromycin 500 mg/ Sodium (Chloride) 250 mls @ 250 mls/hr IVPB DAILY [facility] PRN Reason: Protocol Last Admin: 02/02/17 09:54 Dose: 250 mls/hr Piperacillin Sod/Tazobactam (Sod 3.375 gm/ Sodium Chloride) 100 mls @ 100 mls/ hr IVPB Q8 [facility] PRN Reason: Protocol Last Admin: 02/02/17 09:56 Dose: 100 mls/hr Ketorolac Tromethamine (Toradol) 15 mg IVP Q6 PRN PRN Reason: Pain, moderate (4-7) Lorazepam (Ativan) 1 mg PO TID PRN PRN Reason: Agitation Methylprednisolone (Solu-Medrol) 20 mg IVP Q8H [facility] Last Admin: 02/02/17 09:37 Dose: 20 mg Morphine Sulfate (Morphine) 2 mg IVP Q4 PRN PRN Reason: Pain, severe (8-10) Last Admin: 02/02/17 00:30 Dose: 2 mg Multivitamins/Minerals (Therapeutic-M Tab) 1 tab PO DAILY [facility] Last Admin: 02/02/17 09:33 Dose: Not Given Nicotine (Nicoderm Cq) 1 patch TD DAILY [facility] Last Admin: 02/02/17 09:32 Dose: 1 patch Ondansetron HCl (Zofran Inj) 4 mg IVP Q6H PRN PRN Reason: Nausea/Vomiting Fluticasone/Salmeterol (Advair Diskus 250/50) 1 puff IH Q12 [facility] Last Admin: 02/02/17 09:30 Dose: Not Given Thiamine HCl (Vitamin B1 Tab) 100 mg PO DAILY [facility] Last Admin: 02/02/17 09:33 Dose: Not Given - Labs Labs: 02/02/17 04:10 02/02/17 04:10 PT 16.7 Seconds (9.8-13.1) H 01/30/17 06:30 INR 1.5 (0.9-1.2) H 01/30/17 06:30 APTT 40.3 Seconds (25.6-37.1) H 01/27/17 18:15 - Constitutional Appears: Chronically Ill, Other (sedated) - Head Exam Head Exam: NORMAL INSPECTION, NORMOCEPHALIC - Eye Exam Eye Exam: PERRL, Scleral icterus Additional comments: scleral edema, icteric - ENT Exam ENT Exam: Mucous Membranes Dry, Normal External Ear Exam - Neck Exam Neck Exam: absent: Meningismus - Respiratory Exam Respiratory Exam: absent: Respiratory Distress Additional comments: on High flow oxygen - Cardiovascular Exam Cardiovascular Exam: REGULAR RHYTHM, +S1, +S2 - GI/Abdominal Exam GI & Abdominal Exam: Distended, Soft, Normal Bowel Sounds - Extremities Exam Extremities Exam: Normal Capillary Refill, Pedal Edema - Neurological Exam Additional comments: Sedated responds to pain - Psychiatric Exam Additional comments: sedated - Skin Skin Exam: Dry, Normal Color, Warm Assessment and Plan - Assessment and Plan (Free Text) Assessment: 51 y/o female with COPD , fatty liver, Chronic ETOH abuse ( daily 8 cups of 8 ounce vodka ) , smoker , chronic lower back pain brought to ER for evaluation by EMS for facial and lower extremity swelling , SOB and lower back pain. As per patient she has some baseline SOB with ambulation and has chronic lower back pain . Pt was having some lower back pain for which she took some Motrin and Advil PM. and when she woke up she noticed her face and eyes to be swollen and her lower extremities were swollen as well. She could not get out of bed and was having significant back pain . She admits to having increased SOB with cough last couple of days, denies any fever ,chills, nausea, vomiting, chest pain . No sputum production. Denies any sick contact or trauma. She was seen at [facility] 1 week ago for SOB and was given steroids and duonebs. EMS was called and she was brought to ER where she was found to be in respiratory distress,with dyspnea RR 35 O2sat 94 %, slightly hypotensive BP 96/ 65 tachycardic HR 122. She was given 2 Duonebs in the field, 125 mg IV solumedrol in ER , started on IVF and placed on High Flow O2 ,20 LPM FIO2 60 % Her ABG showed PO2 70 PCO2 35 pH 7.38 . CXR showed bilateral infiltrates worse on the right WBC found to be elevated 16.8 Hgb 10 BUN/Cr 20/1.4 rigoberto 6.6 ASt / ALT 150/26 lactic acid 2.6 ETOH levels 73 Physical exam significant for tremors , increased work of breathing , periorbital, facial and lower extremity edema, her breath smells alcohol She was admitted in ICU for close monitoring and treatment. She was transferred to telemetry but became very agitated , restless , confused , tachypneic and tachycardic and so was transferred back to ICU for close monitoring> She was placed on High Flow Oxygen and started on Precedex drip . 1. Severe Sepsis-- improving Most likely secondary to multifocal pneumonia patient was hypotensive,tachycardic,hypoxemic with WBC 16.8 and CXR showing bilateral infiltrates, lactate 2.6 Sputum cx positive for yeast Placed on High Flow Oxygen due to resp insuff Continue Duonebs, IV vanco , Zosyn and Zithromax and Diflucan on Mucinex ID consult with Dr Escalera 2.Acute hypoxemic respiratory failure-PO2 73 today ph 7.29 Most likely secondary to multi lobar Pneumonia and COPD exacerbation on Duonebs ,Solumedrol IV 40 mg Q8 placed on High Flow O2 via NC 20 LPM FIO2 60 % CT chest showed multifocal infiltrates . Unable to perform CTA due to renal function Transfer to ICU for close monitoring Pulmonary and ID consult appreciated Continue IV antibiotics, vanco, Zosyn , Diflucan and Zithromax and Duonebs continue solumedrol 40 mg IV q8 3. Multifocal Pneumonia ID and pulmonary consulted on Vanco, Zosyn and Zithromax.Start Diflucan vanco trough 12 Sputum cx growing yeast patient is a long time smoker so will need to follow up resolution of infiltrates to rule out any underlying malignancy 4. Facial and lower extremity edema unclear etiology of facial edema TSH : normal Given Solumedrol 125 mg IV and continued 40 mg iv q8 for 2 days together with benadryl and famotidine discontinued famotidine and Benadryl LE venous doppler negative for DVT Echo showed normal LVF EF 65 -70 % given lasix Edema sec to liver dis ? 5. ETOH abuse / Impending DT-s patient still tremulous ,tachycardic ,confused with fine tremors continue Thiamine, Folic acid and MVI Continue hydration on Librium to 50 mg PO Q8 and Ativan PRN Transferred to ICU for close monitoring and Precedex sedation Seizure precautions/ withdrawal precautions 6. SUNDAR improving no prior records and unknown renal function 7.COPD exacerbation-- improved Duonebs , high flow pulmonary consulted counseled on smoking solumedrol 40 mg IV Q8 8. Alcoholic liver Bill 6.6 AST 150 on admission. rigoberto trending down to 2.9 CT chest showed hepatomegaly , fatty infiltration , some ascitic fluid and umbilical vein recannulization significant for portal hypertension \ US showed: Hepatomegaly with steatosis.Trace perihepatic ascites.Nonspecific gallbladder wall thickening. Gallbladder wall thickening is a nonspecific finding which can be seen with ascites, hepatitis, cholecystitis,CHF or hypoproteinemic states. patient has no abdominal pain , no fever , no signs of cholecystitis Continue monitoring 9. Chronic Lower back pain Ct chest also showing mild chronic compression fracture in mid thoracic spine pain management consult Continue morphine PRN PT eval off Fentanyly patch whil on Precedex 10.Anemia unclear etiology Normal Iron and B12 level 11. Smoker on nicotine patch 12 Thrombocytopenia unclear if sec to meds - Zosyn Hold Lovenox will check HIT 13. DVT prophylaxis GI prophylaxis Lovenox- on hold due to low platelet Pepcid
--- NOTE | 2017-02-02 14:05 | CP.PCM.PN ---
Subjective - Date & Time of Evaluation Date of Evaluation: 02/02/17 Time of Evaluation: 07:00 - Subjective Subjective: EVENTS NOTED COMPLEX CASE OF D/T'S AND ALCOHOLIC HEPATITIS IN A 51 YO FEMALE WITH SEVERE COPD, RESP FAILURE, PNEUMONIA AND MORBID OBESITY BACK IN ICU AFTER BRIEF HIATUS SEDATED/ UNRESPONSIVE NO FEVER ALL CULTURES NEG ON BROAD SPECTRUM ANTIBIOTIC RX FOR POSSIBLE HCAP Objective - Vital Signs/Intake and Output Vital Signs (last 24 hours): Temp Pulse Resp BP Pulse Ox 97.3 F L 65 17 108/65 97 02/02/17 12:00 02/02/17 13:00 02/02/17 13:00 02/02/17 13:00 02/02/17 13:00 Intake and Output: 02/02/17 02/02/17 06:59 18:59 Intake Total 140 650 Balance 140 650 - Medications Medications: Current Medications Acetaminophen (Tylenol 325mg Tab) 650 mg PO Q6H PRN PRN Reason: Pain, Mild (1-3) Acetaminophen (Tylenol 325mg Tab) 650 mg PO Q6H PRN PRN Reason: Fever >100.4 F Albuterol/Ipratropium (Duoneb 3 Mg/0.5 Mg (3 Ml) Ud) 3 ml INH RQ4 [facility] Last Admin: 02/02/17 11:16 Dose: 3 ml Chlordiazepoxide (Librium) 50 mg PO Q6 [facility] Last Admin: 02/02/17 09:31 Dose: Not Given Docusate Sodium (Colace) 100 mg PO BID PRN PRN Reason: Constipation Enoxaparin Sodium (Lovenox) 30 mg SC DAILY [facility] PRN Reason: Protocol Folic Acid (Folic Acid) 1 mg PO DAILY [facility] Last Admin: 02/02/17 09:31 Dose: Not Given Guaifenesin (Mucinex La) 600 mg PO Q12 [facility] Last Admin: 02/02/17 09:32 Dose: Not Given Fluconazole (Diflucan Iv 100 Mg/50 Ml Ns) 50 mls @ 50 mls/hr IVPB DAILY [facility] PRN Reason: Protocol Last Admin: 02/02/17 09:54 Dose: 50 mls/hr Vancomycin HCl 1 gm/ Sodium (Chloride) 250 mls @ 166.667 mls/hr IVPB DAILY [facility] PRN Reason: Protocol Last Admin: 02/02/17 09:55 Dose: 166.667 mls/hr Azithromycin 500 mg/ Sodium (Chloride) 250 mls @ 250 mls/hr IVPB DAILY [facility] PRN Reason: Protocol Last Admin: 02/02/17 09:54 Dose: 250 mls/hr Piperacillin Sod/Tazobactam (Sod 3.375 gm/ Sodium Chloride) 100 mls @ 100 mls/ hr IVPB Q8 [facility] PRN Reason: Protocol Last Admin: 02/02/17 09:56 Dose: 100 mls/hr Ketorolac Tromethamine (Toradol) 15 mg IVP Q6 PRN PRN Reason: Pain, moderate (4-7) Lorazepam (Ativan) 1 mg PO TID PRN PRN Reason: Agitation Methylprednisolone (Solu-Medrol) 20 mg IVP Q8H [facility] Last Admin: 02/02/17 09:37 Dose: 20 mg Morphine Sulfate (Morphine) 2 mg IVP Q4 PRN PRN Reason: Pain, severe (8-10) Last Admin: 02/02/17 00:30 Dose: 2 mg Multivitamins/Minerals (Therapeutic-M Tab) 1 tab PO DAILY [facility] Last Admin: 02/02/17 09:33 Dose: Not Given Nicotine (Nicoderm Cq) 1 patch TD DAILY [facility] Last Admin: 02/02/17 09:32 Dose: 1 patch Ondansetron HCl (Zofran Inj) 4 mg IVP Q6H PRN PRN Reason: Nausea/Vomiting Fluticasone/Salmeterol (Advair Diskus 250/50) 1 puff IH Q12 [facility] Last Admin: 02/02/17 09:30 Dose: Not Given Thiamine HCl (Vitamin B1 Tab) 100 mg PO DAILY [facility] Last Admin: 02/02/17 09:33 Dose: Not Given - Labs Labs: 02/02/17 04:10 02/02/17 04:10 PT 16.7 Seconds (9.8-13.1) H 01/30/17 06:30 INR 1.5 (0.9-1.2) H 01/30/17 06:30 APTT 40.3 Seconds (25.6-37.1) H 01/27/17 18:15 - Constitutional Appears: Confused, Chronically Ill - Head Exam Head Exam: NORMOCEPHALIC - Eye Exam Eye Exam: absent: Scleral icterus - ENT Exam ENT Exam: Mucous Membranes Dry - Neck Exam Neck Exam: absent: Lymphadenopathy - Respiratory Exam Respiratory Exam: Decreased Breath Sounds, Prolonged Expiratory Phase, Rhonchi, Wheezes - Cardiovascular Exam Cardiovascular Exam: REGULAR RHYTHM, +S1, +S2 - GI/Abdominal Exam GI & Abdominal Exam: Distended - Rectal Exam Rectal Exam: Deferred - Exam Exam: NORMAL INSPECTION - Extremities Exam Extremities Exam: absent: Pedal Edema - Back Exam Back Exam: absent: CVA tenderness (L), CVA tenderness (R), paraspinal tenderness - Neurological Exam Neurological Exam: Altered - Psychiatric Exam Psychiatric exam: Depressed - Skin Skin Exam: Intact Assessment and Plan (1) Bilateral pneumonia Status: Acute (2) COPD exacerbation Status: Acute (3) Respiratory distress Status: Acute (4) Severe sepsis Status: Acute (5) Alcohol abuse Status: Acute
[2017-02-03] MEDS: Piperacillin/Tazobact 3.375 GM in Sodium Chloride 0.9% 100 ML IVPB SCH ×3 (00:08→17:04)
[2017-02-03] MEDS ORDERED: Dexmedetomidine Hydrochloride 400 MCG in Sodium Chloride 0.9% 96 ML IV ONE ×3 (02:27→18:13)
[2017-02-03 05:20] LABS: BASO % 0.2 % (0.0-2.0); EOS % 0.1 % (0.0-4.0); LYMPH # 0.7 K/uL (1.0-4.3); LYMPH % 8.3 % (20.0-40.0); MEAN CORPUSCULAR HEMOGLOBIN 34.9 pg (27.0-31.0); MEAN CORPUSCULAR HGB CONC 32.6 g/dL (33.0-37.0); MEAN PLATELET VOLUME 9.1 fl (7.2-11.7); MONO # 0.5 K/uL (0.0-0.8); MONO % 5.2 % (0.0-10.0); NEUT # 7.5 K/uL (1.8-7.0); NEUT % 86.2 % (50.0-75.0); NRBC % 0.1 % (0.0-0.0); PLATELET COUNT 104 K/uL (130-400); RED CELL DISTRIBUTION WIDTH 15.9 % (11.5-14.5); WHITE BLOOD COUNT 8.7 K/uL (4.8-10.8)
[2017-02-03] MEDS: Albuterol-Ipratrop 3 mg / 0.5 (3 ml) UD INH SCH ×5 (05:25→19:20)
[2017-02-03 05:34] LABS: ALB/GLOB RATIO 0.8 (1.0-2.1); ALKALINE PHOSPHATASE 100 U/L (38-126); ALT/SGPT 60 U/L (9-52); AST/SGOT 77 U/L (14-36); BILIRUBIN,TOTAL 2.4 mg/dl (0.2-1.3); BLOOD UREA NITROGEN 41 mg/dl (7-17); CALCIUM 9.3 mg/dL (8.4-10.2); CARBON DIOXIDE 29 mmol/L (22-30); CHLORIDE 111 mmol/L (98-107); GFR AFRICAN-AMERICAN > 60; GLUCOSE,RANDOM 151 mg/dL (65-105); MAGNESIUM 1.4 MG/DL (1.6-2.3); PHOSPHOROUS 4.3 mg/dl (2.5-4.5); POTASSIUM 4.5 MMOL/L (3.6-5.0); SODIUM 146 mmol/l (132-148); TOTAL PROTEIN 7.1 G/DL (6.3-8.2)
[2017-02-03] MEDS: MethylPREDNISolone 40 mg Vial IVP SCH ×2 (06:59→17:03)
[2017-02-03] MEDS ORDERED: Magnesium Sulfate 2 gm/50 ml 2 GM/50 ML BAG IVPB ONE (08:15)
--- NOTE | 2017-02-03 09:19 | RAD ---
HISTORY: f/u [facility] COMPARISON: Chest radiograph dated 02/01/2017. FINDINGS: LUNGS: Similar to slightly worsening bilateral pulmonary opacities. PLEURA: Equivocal small right effusion versus overlying soft tissue. No pneumothorax apparent. CARDIOVASCULAR: Cardiomediastinal silhouette stably enlarged. OSSEOUS STRUCTURES: Unchanged. VISUALIZED UPPER ABDOMEN: Normal. OTHER FINDINGS: None. IMPRESSION: Similar to slightly worsening bilateral pulmonary opacities.
[2017-02-03] MEDS: Fluconazole IV 100mg/50 ml NS 50 ML IVPB SCH (10:02)
[2017-02-03] MEDS: Fluticasone-Salmeterol 250-50mcg Diskus IH SCH ×2 (10:03→21:00)
[2017-02-03] MEDS: Multivitamin With Minerals Tab PO SCH (10:04)
[2017-02-03] MEDS: guaiFENesin 600 mg ER Tab PO SCH ×2 (10:04→21:00)
[2017-02-03] MEDS: Azithromycin 500 MG in Sodium Chloride 0.9% 250 ML IVPB SCH (10:15)
[2017-02-03 11:03] LABS: NEUTROPHIL 77 % (42-75); TOTAL CELLS COUNTED 100
--- NOTE | 2017-02-03 11:40 | CP.PCM.PN ---
Subjective - Date & Time of Evaluation Date of Evaluation: 02/03/17 Time of Evaluation: 11:00 - Subjective Subjective: Pt is afebrile Remains on High Flow Oxygen - 20L , 60% FiO2 On Precedex drip - RN lowered dose this am and pt became agitated - Objective - Vital Signs/Intake and Output Vital Signs (last 24 hours): Temp Pulse Resp BP Pulse Ox 97.4 F L 72 20 115/75 95 02/03/17 08:00 02/03/17 08:00 02/03/17 11:00 02/03/17 08:00 02/03/17 08:00 Intake and Output: 02/03/17 02/03/17 06:59 18:59 Intake Total 214 Balance 214 - Medications Medications: Current Medications Acetaminophen (Tylenol 325mg Tab) 650 mg PO Q6H PRN PRN Reason: Pain, Mild (1-3) Acetaminophen (Tylenol 325mg Tab) 650 mg PO Q6H PRN PRN Reason: Fever >100.4 F Albuterol/Ipratropium (Duoneb 3 Mg/0.5 Mg (3 Ml) Ud) 3 ml INH RQ4 [facility] Last Admin: 02/03/17 11:39 Dose: 3 ml Chlordiazepoxide (Librium) 50 mg PO Q6 [facility] Last Admin: 02/03/17 10:05 Dose: Not Given Docusate Sodium (Colace) 100 mg PO BID PRN PRN Reason: Constipation Enoxaparin Sodium (Lovenox) 30 mg SC DAILY [facility] PRN Reason: Protocol Folic Acid (Folic Acid) 1 mg PO DAILY [facility] Last Admin: 02/03/17 10:04 Dose: Not Given Guaifenesin (Mucinex La) 600 mg PO Q12 [facility] Last Admin: 02/03/17 10:04 Dose: Not Given Fluconazole (Diflucan Iv 100 Mg/50 Ml Ns) 50 mls @ 50 mls/hr IVPB DAILY [facility] PRN Reason: Protocol Last Admin: 02/03/17 10:02 Dose: 50 mls/hr Vancomycin HCl 1 gm/ Sodium (Chloride) 250 mls @ 166.667 mls/hr IVPB DAILY [facility] PRN Reason: Protocol Last Admin: 02/03/17 09:58 Dose: 166.667 mls/hr Azithromycin 500 mg/ Sodium (Chloride) 250 mls @ 250 mls/hr IVPB DAILY [facility] PRN Reason: Protocol Last Admin: 02/03/17 10:15 Dose: 250 mls/hr Piperacillin Sod/Tazobactam (Sod 3.375 gm/ Sodium Chloride) 100 mls @ 100 mls/ hr IVPB Q8 [facility] PRN Reason: Protocol Last Admin: 02/03/17 09:57 Dose: 100 mls/hr Ketorolac Tromethamine (Toradol) 15 mg IVP Q6 PRN PRN Reason: Pain, moderate (4-7) Lorazepam (Ativan) 1 mg PO TID PRN PRN Reason: Agitation Methylprednisolone (Solu-Medrol) 20 mg IVP Q8H [facility] Last Admin: 02/03/17 06:59 Dose: 20 mg Morphine Sulfate (Morphine) 2 mg IVP Q4 PRN PRN Reason: Pain, severe (8-10) Last Admin: 02/03/17 04:43 Dose: 2 mg Multivitamins/Minerals (Therapeutic-M Tab) 1 tab PO DAILY [facility] Last Admin: 02/03/17 10:04 Dose: Not Given Nicotine (Nicoderm Cq) 1 patch TD DAILY [facility] Last Admin: 02/03/17 10:06 Dose: 1 patch Ondansetron HCl (Zofran Inj) 4 mg IVP Q6H PRN PRN Reason: Nausea/Vomiting Fluticasone/Salmeterol (Advair Diskus 250/50) 1 puff IH Q12 [facility] Last Admin: 02/03/17 10:03 Dose: Not Given Thiamine HCl (Vitamin B1 Tab) 100 mg PO DAILY [facility] Last Admin: 02/03/17 10:03 Dose: Not Given - Labs Labs: 02/03/17 04:20 02/03/17 04:20 PT 16.7 Seconds (9.8-13.1) H 01/30/17 06:30 INR 1.5 (0.9-1.2) H 01/30/17 06:30 APTT 40.3 Seconds (25.6-37.1) H 01/27/17 18:15 - Constitutional Appears: Chronically Ill, Other (sedated) - Head Exam Head Exam: NORMAL INSPECTION, NORMOCEPHALIC - Eye Exam Eye Exam: PERRL, Scleral icterus Additional comments: scleral edema, icteric - ENT Exam ENT Exam: Mucous Membranes Dry, Normal External Ear Exam - Neck Exam Neck Exam: absent: Meningismus - Respiratory Exam Respiratory Exam: absent: Respiratory Distress Additional comments: on High flow oxygen - Cardiovascular Exam Cardiovascular Exam: REGULAR RHYTHM, +S1, +S2 - GI/Abdominal Exam GI & Abdominal Exam: Distended, Soft, Normal Bowel Sounds - Extremities Exam Extremities Exam: Normal Capillary Refill, Pedal Edema - Neurological Exam Additional comments: Sedated responds to pain - Psychiatric Exam Additional comments: sedated - Skin Skin Exam: Dry, Normal Color, Warm Assessment and Plan - Assessment and Plan (Free Text) Assessment: 51 y/o female with COPD , fatty liver, Chronic ETOH abuse ( daily 8 cups of 8 ounce vodka ) , smoker , chronic lower back pain brought to ER for evaluation by EMS for facial and lower extremity swelling , SOB and lower back pain. As per patient she has some baseline SOB with ambulation and has chronic lower back pain . Pt was having some lower back pain for which she took some Motrin and Advil PM. and when she woke up she noticed her face and eyes to be swollen and her lower extremities were swollen as well. She could not get out of bed and was having significant back pain . In the ED , was found to be in respiratory distress,with dyspnea RR 35 O2sat 94 %, slightly hypotensive BP 96/65 tachycardic HR 122. She was given 2 Duonebs in the field, 125 mg IV solumedrol in ER , started on IVF and placed on High Flow O2 ,20 LPM FIO2 60 % Her ABG showed PO2 70 PCO2 35 pH 7.38 . CXR showed bilateral infiltrates worse on the right WBC found to be elevated 16.8 Hgb 10 BUN/Cr 20/1.4 rigoberto 6.6 ASt / ALT 150/26 lactic acid 2.6 ETOH levels 73 Physical exam significant for tremors , increased work of breathing , periorbital, facial and lower extremity edema, her breath smelled of alcohol. She was admitted in ICU for close monitoring and treatment, she improved and was transferred to telemetry but became very agitated , restless , confused , tachypneic and tachycardic and so was transferred back to ICU for close monitoring. She was placed on High Flow Oxygen and started on Precedex drip . 1. Severe Sepsis-- improving Most likely secondary to multifocal pneumonia patient was hypotensive,tachycardic,hypoxemic with WBC 16.8 and CXR showing bilateral infiltrates, lactate 2.6 on admission Sputum cx positive for yeast Placed on High Flow Oxygen due to resp insuff Continue Duonebs, IV vanco , Zosyn and Zithromax and Diflucan ID consulted: Dr Escalera 2.Acute hypoxemic respiratory failure Most likely secondary to multi lobar Pneumonia and COPD exacerbation on Duonebs ,Solumedrol IV 20 mg Q8 placed on High Flow O2 via NC 20 LPM FIO2 60 % CT chest showed multifocal infiltrates Pulmonary and ID consult appreciated Continue IV antibiotics, vanco, Zosyn , Diflucan and Zithromax and Duonebs 3. Multifocal Pneumonia ID and pulmonary consulted on Vanco, Zosyn and Zithromax.Start Diflucan vanco trough 12 Sputum cx growing yeast patient is a long time smoker so will need to follow up resolution of infiltrates to rule out any underlying malignancy 4. Facial and lower extremity edema unclear etiology of facial edema TSH : normal Given Solumedrol 124, Benadry and Pepcid LE venous doppler negative for DVT Echo showed normal LVF EF 65 -70 % given lasix Edema sec to liver dis ? 5. ETOH abuse / Delirium Tremens patient still tremulous ,tachycardic ,confused Started on Precedx drip in ICU Precedex dose lowered this am however pt started becoming restless, and moaning continue Thiamine, Folic acid and MVI Continue hydration Seizure precautions/ withdrawal precautions 6. SUNDAR improving no prior records and unknown baseline renal function improved 7.COPD exacerbation-- improved Duonebs , high flow pulmonary consulted counseled on smoking decreased solumedrol 20 mg IV Q8 8. Alcoholic liver Bill 6.6 AST 150 on admission. rigoberto trending down to 2.9 CT chest showed hepatomegaly , fatty infiltration , some ascitic fluid and umbilical vein recannulization significant for portal hypertension \ US showed: Hepatomegaly with steatosis.Trace perihepatic ascites.Nonspecific gallbladder wall thickening. Gallbladder wall thickening is a nonspecific finding which can be seen with ascites, hepatitis, cholecystitis,CHF or hypoproteinemic states. patient has no abdominal pain , no fever , no signs of cholecystitis Continue monitoring 9. Chronic Lower back pain Ct chest also showing mild chronic compression fracture in mid thoracic spine pain management consult Continue morphine PRN PT eval off Fentanyl patch while on Precedex 10.Anemia unclear etiology Normal Iron and B12 level cont Thiamine 11. Smoker on nicotine patch 12 Thrombocytopenia unclear if sec to meds - Zosyn Hold Lovenox will check HIT 13. DVT prophylaxis GI prophylaxis Lovenox- on hold due to low platelet Pepcid
--- NOTE | 2017-02-03 14:21 | CP.CCUPN ---
CCU Subjective - Physician Review Subjective (Free Text): Precedex has been maintained at 0.4 mcg/kg/hour, but this AM appears more agitated and spontaneously raising R arm straight and upward, and moaning incoherently, not following commands, no excessive tachycardia, fevers, diaphoresis or other tremors noted. Other vitals and I/O's reviewed. ROS: No other pertinent negs or positives on 10+ system review. PMSFH: All Nursing and physician documentation reviewed to date; no new pertinent info noted relevant to current medical problems. CXR: Left basilar atelectasis, perihilar-R worse than L interstitial changes ( my interp). IMPRESSION / MAJOR PROBLEMS NOW: 1. Acute Hypoxemic Resp Failure 2. Bilateral Pneumonia 3. Azotemia / Dehydration, with Hyperkalemia; r/o CKD 4. Chronic ETOH Intoxication with Delirium Tremans 5. Anemia, with mixed Indices; unclear acute vs. chronic disease type 6. Hyperbilirubinemia PLAN: 1. Sedation vacation from Precedex performed and increase agitation noted, drip resumed and advised Nurse to increase dosage, then would continue for at least 24-48h. 2. Hold Fentanyl patch, Precedex has some analgesic properties. Pain mgmt. eval reviewed. 3. Continue with Librium if tolerated. 4. Empiric Zosyn/Vanco to continue. 5. Watch for need for assisted ventilatory support. Watch PCO2 levels. CCU Objective - Vital Signs / Intake & Output Vital Signs (Last 4 hours): Vital Signs Temp Pulse Resp BP Pulse Ox 02/03/17 12:00 973 F H 74 22 110/77 97 02/03/17 11:00 20 Intake and Output (Last 8hrs): Intake & Output 02/02/17 02/03/17 02/03/17 22:59 06:59 14:59 Intake Total 220 214 62.04 Balance 220 214 62.04 Intake: IV 120 114 62.04 Intake, Piggyback 100 100 Other: # Voids Urine, Voided 2 - Physical Exam Head: Positive for: Atraumatic, Normocephalic Pupils: Positive for: PERRL Extroacular Muscles: Positive for: EOMI. Negative for: Gaze Palsy Conjunctiva: Positive for: Icteric Mouth: Positive for: Moist Mucous Membranes Pharnyx: Positive for: Normal Neck: Negative for: JVD, Lymphadenopathy Respiratory/Chest: Positive for: Wheezes, Decreased Breath Sounds. Negative for : Accessory Muscle Use Cardiovascular: Positive for: Regular Rate and Rhythm, Tachycardic. Negative for: Murmurs, Rub Abdomen: Positive for: Normal Bowel Sounds, Other (obese). Negative for: Tenderness, Distention, Mass/Organomegaly Lower Extremity: Positive for: Edema, NORMAL PULSES. Negative for: CALF TENDERNESS, Cyanosis Neurological: Positive for: GCS=15, Motor Func Grossly Intact, Normal Sensory Function Skin: Positive for: Warm, Dry, Other (3 ecchymotic areas along Right lateral back area). Negative for: Rashes Psychiatric: Positive for: Alert, Oriented x 3 - Medications Active Medications: Active Medications Generic Name Dose Route Start Last Admin Trade Name Freq PRN Reason Stop Dose Admin Acetaminophen 650 mg 02/01/17 17:29 Tylenol 325mg Tab PO Q6H PRN Pain, Mild (1-3) Acetaminophen 650 mg 02/01/17 17:29 Tylenol 325mg Tab PO Q6H PRN Fever >100.4 F Albuterol/Ipratropium 3 ml 02/01/17 20:00 02/03/17 11:39 Duoneb 3 Mg/0.5 Mg (3 Ml) Ud INH 3 ml RQ4 [facility] Administration Chlordiazepoxide 50 mg 02/01/17 22:00 02/03/17 10:05 Librium PO Not Given Q6 [facility] Docusate Sodium 100 mg 02/01/17 17:29 Colace PO BID PRN Constipation Enoxaparin Sodium 30 mg 02/02/17 09:00 Lovenox SC DAILY [facility] Protocol Folic Acid 1 mg 02/02/17 09:00 02/03/17 10:04 Folic Acid PO Not Given DAILY [facility] Guaifenesin 600 mg 02/01/17 21:00 02/03/17 10:04 Mucinex La PO Not Given Q12 [facility] Fluconazole 50 mls @ 50 mls/hr 02/02/17 09:00 02/03/17 10:02 Diflucan Iv 100 Mg/50 Ml Ns IVPB 50 mls/hr DAILY [facility] Administration Protocol Vancomycin HCl 1 gm/ Sodium 250 mls @ 166.667 mls/hr 02/02/17 09:00 02/03/17 09:58 Chloride IVPB 166.667 mls/hr DAILY [facility] Administration Protocol Azithromycin 500 mg/ Sodium 250 mls @ 250 mls/hr 02/02/17 09:00 02/03/17 10: 15 Chloride IVPB 250 mls/hr DAILY [facility] Administration Protocol Piperacillin Sod/Tazobactam 100 mls @ 100 mls/hr 02/02/17 01:00 02/03/17 09: 57 Sod 3.375 gm/ Sodium Chloride IVPB 100 mls/hr Q8 [facility] Administration Protocol Ketorolac Tromethamine 15 mg 02/01/17 17:29 Toradol IVP Q6 PRN Pain, moderate (4-7) Lorazepam 1 mg 02/01/17 17:29 Ativan PO TID PRN Agitation Methylprednisolone 20 mg 02/01/17 23:30 02/03/17 06:59 Solu-Medrol IVP 20 mg Q8H [facility] Administration Morphine Sulfate 2 mg 02/01/17 17:29 02/03/17 04:43 Morphine IVP 2 mg Q4 PRN Administration Pain, severe (8-10) Multivitamins/Minerals 1 tab 02/02/17 09:00 02/03/17 10:04 Therapeutic-M Tab PO Not Given DAILY [facility] Nicotine 1 patch 02/02/17 09:00 02/03/17 10:06 Nicoderm Cq TD 1 patch DAILY [facility] Administration Ondansetron HCl 4 mg 02/01/17 17:29 Zofran Inj IVP Q6H PRN Nausea/Vomiting Fluticasone/Salmeterol 1 puff 02/01/17 21:00 02/03/17 10:03 Advair Diskus 250/50 IH Not Given Q12 [facility] Thiamine HCl 100 mg 02/02/17 09:00 02/03/17 10:03 Vitamin B1 Tab PO Not Given DAILY [facility] - Patient Studies Lab Studies: Microbiology Studies 02/02/17 11:24 MRSA Culture (Admit) - Final Naris MRSA NOT DETECTED Lab Studies 02/03/17 02/03/17 02/03/17 Range/Units 11:12 06:04 04:20 WBC (4.8-10.8) K/uL RBC (3.80-5.20) Mil/uL Hgb (12.0-16.0) g/dL Hct (34.0-47.0) % MCV (81.0-99.0) fl MCH (27.0-31.0) pg MCHC (33.0-37.0) g/dL RDW (11.5-14.5) % Plt Count (130-400) K/uL MPV (7.2-11.7) fl Neut % (Auto) (50.0-75.0) % Lymph % (Auto) (20.0-40.0) % [place] % (Auto) (0.0-10.0) % Eos % (Auto) (0.0-4.0) % Baso % (Auto) (0.0-2.0) % Neut # (1.8-7.0) K/uL Lymph # (1.0-4.3) K/uL [place] # (0.0-0.8) K/uL Eos # (0.0-0.7) K/uL Baso # (0.0-0.2) K/uL Neutrophils % (Manual) (42-75) % Lymphocytes % (Manual) (20-50) % Monocytes % (Manual) (0-10) % Platelet Estimate (NORMAL) Hypochromasia (manual) Anisocytosis (manual) Macrocytosis (manual) Tear Drop Cells Sodium 146 (132-148) mmol/l Potassium 4.5 (3.6-5.0) MMOL/L Chloride 111 H (98-107) mmol/L Carbon Dioxide 29 (22-30) mmol/L Anion Gap 11 (10-20) BUN 41 H (7-17) mg/dl Creatinine 0.8 (0.7-1.2) mg/dl Est GFR ( Amer) > 60 Est GFR (Non-Af Amer) > 60 POC Glucose (mg/dL) 173 H 168 H (65-110) mg/dL Random Glucose 151 H (65-105) mg/dL Calcium 9.3 (8.4-10.2) mg/dL Phosphorus 4.3 (2.5-4.5) mg/dl Magnesium 1.4 L (1.6-2.3) MG/DL Total Bilirubin 2.4 H (0.2-1.3) mg/dl AST 77 H (14-36) U/L ALT 60 H (9-52) U/L Alkaline Phosphatase 100 (38-126) U/L Total Protein 7.1 (6.3-8.2) G/DL Albumin 3.2 L (3.5-5.0) g/dL Globulin 4.0 H (2.2-3.9) gm/dL Albumin/Globulin Ratio 0.8 L (1.0-2.1) Vancomycin Trough (5.0-10.0) ug/mL Mycoplasma pneumon IgG (<=0.90) Mycoplasma pneumon IgM (<770) U/mL 02/03/17 02/03/17 02/02/17 Range/Units 04:20 04:20 21:28 WBC 8.7 (4.8-10.8) K/uL RBC 2.81 L (3.80-5.20) Mil/uL Hgb 9.8 L (12.0-16.0) g/dL Hct 30.0 L (34.0-47.0) % MCV 107.0 H (81.0-99.0) fl MCH 34.9 H (27.0-31.0) pg MCHC 32.6 L (33.0-37.0) g/dL RDW 15.9 H (11.5-14.5) % Plt Count 104 L (130-400) K/uL MPV 9.1 (7.2-11.7) fl Neut % (Auto) 86.2 H (50.0-75.0) % Lymph % (Auto) 8.3 L (20.0-40.0) % [place] % (Auto) 5.2 (0.0-10.0) % Eos % (Auto) 0.1 (0.0-4.0) % Baso % (Auto) 0.2 (0.0-2.0) % Neut # 7.5 H (1.8-7.0) K/uL Lymph # 0.7 L (1.0-4.3) K/uL [place] # 0.5 (0.0-0.8) K/uL Eos # 0.0 (0.0-0.7) K/uL Baso # 0.0 (0.0-0.2) K/uL Neutrophils % (Manual) 77 H (42-75) % Lymphocytes % (Manual) 12 L (20-50) % Monocytes % (Manual) 11 H (0-10) % Platelet Estimate Decreased L (NORMAL) Hypochromasia (manual) Slight Anisocytosis (manual) Slight Macrocytosis (manual) Moderate Tear Drop Cells Slight Sodium (132-148) mmol/l Potassium (3.6-5.0) MMOL/L Chloride (98-107) mmol/L Carbon Dioxide (22-30) mmol/L Anion Gap (10-20) BUN (7-17) mg/dl Creatinine (0.7-1.2) mg/dl Est GFR ( Amer) Est GFR (Non-Af Amer) POC Glucose (mg/dL) 162 H (65-110) mg/dL Random Glucose (65-105) mg/dL Calcium (8.4-10.2) mg/dL Phosphorus (2.5-4.5) mg/dl Magnesium (1.6-2.3) MG/DL Total Bilirubin (0.2-1.3) mg/dl AST (14-36) U/L ALT (9-52) U/L Alkaline Phosphatase (38-126) U/L Total Protein (6.3-8.2) G/DL Albumin (3.5-5.0) g/dL Globulin (2.2-3.9) gm/dL Albumin/Globulin Ratio (1.0-2.1) Vancomycin Trough 8.9 (5.0-10.0) ug/mL Mycoplasma pneumon IgG (<=0.90) Mycoplasma pneumon IgM (<770) U/mL 02/02/17 01/29/17 Range/Units 16:55 05:30 WBC (4.8-10.8) K/uL RBC (3.80-5.20) Mil/uL Hgb (12.0-16.0) g/dL Hct (34.0-47.0) % MCV (81.0-99.0) fl MCH (27.0-31.0) pg MCHC (33.0-37.0) g/dL RDW (11.5-14.5) % Plt Count (130-400) K/uL MPV (7.2-11.7) fl Neut % (Auto) (50.0-75.0) % Lymph % (Auto) (20.0-40.0) % [place] % (Auto) (0.0-10.0) % Eos % (Auto) (0.0-4.0) % Baso % (Auto) (0.0-2.0) % Neut # (1.8-7.0) K/uL Lymph # (1.0-4.3) K/uL [place] # (0.0-0.8) K/uL Eos # (0.0-0.7) K/uL Baso # (0.0-0.2) K/uL Neutrophils % (Manual) (42-75) % Lymphocytes % (Manual) (20-50) % Monocytes % (Manual) (0-10) % Platelet Estimate (NORMAL) Hypochromasia (manual) Anisocytosis (manual) Macrocytosis (manual) Tear Drop Cells Sodium (132-148) mmol/l Potassium (3.6-5.0) MMOL/L Chloride (98-107) mmol/L Carbon Dioxide (22-30) mmol/L Anion Gap (10-20) BUN (7-17) mg/dl Creatinine (0.7-1.2) mg/dl Est GFR ( Amer) Est GFR (Non-Af Amer) POC Glucose (mg/dL) 150 H (65-110) mg/dL Random Glucose (65-105) mg/dL Calcium (8.4-10.2) mg/dL Phosphorus (2.5-4.5) mg/dl Magnesium (1.6-2.3) MG/DL Total Bilirubin (0.2-1.3) mg/dl AST (14-36) U/L ALT (9-52) U/L Alkaline Phosphatase (38-126) U/L Total Protein (6.3-8.2) G/DL Albumin (3.5-5.0) g/dL Globulin (2.2-3.9) gm/dL Albumin/Globulin Ratio (1.0-2.1) Vancomycin Trough (5.0-10.0) ug/mL Mycoplasma pneumon IgG 3.48 H (<=0.90) Mycoplasma pneumon IgM 33 (<770) U/mL Laboratory Results - last 24 hr 01/29/17 02/02/17 02/02/17 05:30 16:55 21:28 WBC RBC Hgb Hct MCV MCH MCHC RDW Plt Count MPV Neut % (Auto) Lymph % (Auto) [place] % (Auto) Eos % (Auto) Baso % (Auto) Neut # Lymph # [place] # Eos # Baso # Neutrophils % (Manual) Lymphocytes % (Manual) Monocytes % (Manual) Platelet Estimate Hypochromasia (manual) Anisocytosis (manual) Macrocytosis (manual) Tear Drop Cells Sodium Potassium Chloride Carbon Dioxide Anion Gap BUN Creatinine Est GFR ( Amer) Est GFR (Non-Af Amer) POC Glucose (mg/dL) 150 H 162 H Random Glucose Calcium Phosphorus Magnesium Total Bilirubin AST ALT Alkaline Phosphatase Total Protein Albumin Globulin Albumin/Globulin Ratio Vancomycin Trough Mycoplasma pneumon IgG 3.48 H Mycoplasma pneumon IgM 33 02/03/17 02/03/17 02/03/17 04:20 04:20 04:20 WBC 8.7 RBC 2.81 L Hgb 9.8 L Hct 30.0 L MCV 107.0 H MCH 34.9 H MCHC 32.6 L RDW 15.9 H Plt Count 104 L MPV 9.1 Neut % (Auto) 86.2 H Lymph % (Auto) 8.3 L [place] % (Auto) 5.2 Eos % (Auto) 0.1 Baso % (Auto) 0.2 Neut # 7.5 H Lymph # 0.7 L [place] # 0.5 Eos # 0.0 Baso # 0.0 Neutrophils % (Manual) 77 H Lymphocytes % (Manual) 12 L Monocytes % (Manual) 11 H Platelet Estimate Decreased L Hypochromasia (manual) Slight Anisocytosis (manual) Slight Macrocytosis (manual) Moderate Tear Drop Cells Slight Sodium 146 Potassium 4.5 Chloride 111 H Carbon Dioxide 29 Anion Gap 11 BUN 41 H Creatinine 0.8 Est GFR ( Amer) > 60 Est GFR (Non-Af Amer) > 60 POC Glucose (mg/dL) Random Glucose 151 H Calcium 9.3 Phosphorus 4.3 Magnesium 1.4 L Total Bilirubin 2.4 H AST 77 H ALT 60 H Alkaline Phosphatase 100 Total Protein 7.1 Albumin 3.2 L Globulin 4.0 H Albumin/Globulin Ratio 0.8 L Vancomycin Trough 8.9 Mycoplasma pneumon IgG Mycoplasma pneumon IgM 02/03/17 02/03/17 06:04 11:12 WBC RBC Hgb Hct MCV MCH MCHC RDW Plt Count MPV Neut % (Auto) Lymph % (Auto) [place] % (Auto) Eos % (Auto) Baso % (Auto) Neut # Lymph # [place] # Eos # Baso # Neutrophils % (Manual) Lymphocytes % (Manual) Monocytes % (Manual) Platelet Estimate Hypochromasia (manual) Anisocytosis (manual) Macrocytosis (manual) Tear Drop Cells Sodium Potassium Chloride Carbon Dioxide Anion Gap BUN Creatinine Est GFR ( Amer) Est GFR (Non-Af Amer) POC Glucose (mg/dL) 168 H 173 H Random Glucose Calcium Phosphorus Magnesium Total Bilirubin AST ALT Alkaline Phosphatase Total Protein Albumin Globulin Albumin/Globulin Ratio Vancomycin Trough Mycoplasma pneumon IgG Mycoplasma pneumon IgM Fingerstick Blood Sugar Results: 168 Review of Systems - Review of Systems Systems not reviewed;Unavailable: Altered Mental Status Critical Care Progress Note - Nutrition Nutrition: Nutrition Category Date Time Status Regular Diet [DIET] Diets 01/27/17 Lunch Active
--- NOTE | 2017-02-03 16:46 | CP.PCM.PN ---
Subjective - Date & Time of Evaluation Date of Evaluation: 02/03/17 Time of Evaluation: 08:00 - Subjective Subjective: seen on rounbds remains bed bound / confused afebrile Objective - Vital Signs/Intake and Output Vital Signs (last 24 hours): Temp Pulse Resp BP Pulse Ox 96.2 F L 60 17 123/90 99 02/03/17 16:00 02/03/17 16:00 02/03/17 16:00 02/03/17 16:00 02/03/17 16:00 Intake and Output: 02/03/17 02/03/17 06:59 18:59 Intake Total 214 904.04 Balance 214 904.04 - Medications Medications: Current Medications Acetaminophen (Tylenol 325mg Tab) 650 mg PO Q6H PRN PRN Reason: Pain, Mild (1-3) Acetaminophen (Tylenol 325mg Tab) 650 mg PO Q6H PRN PRN Reason: Fever >100.4 F Albuterol/Ipratropium (Duoneb 3 Mg/0.5 Mg (3 Ml) Ud) 3 ml INH RQ4 [facility] Last Admin: 02/03/17 15:55 Dose: 3 ml Chlordiazepoxide (Librium) 50 mg PO Q6 [facility] Last Admin: 02/03/17 10:05 Dose: Not Given Docusate Sodium (Colace) 100 mg PO BID PRN PRN Reason: Constipation Enoxaparin Sodium (Lovenox) 30 mg SC DAILY [facility] PRN Reason: Protocol Folic Acid (Folic Acid) 1 mg PO DAILY [facility] Last Admin: 02/03/17 10:04 Dose: Not Given Guaifenesin (Mucinex La) 600 mg PO Q12 [facility] Last Admin: 02/03/17 10:04 Dose: Not Given Fluconazole (Diflucan Iv 100 Mg/50 Ml Ns) 50 mls @ 50 mls/hr IVPB DAILY [facility] PRN Reason: Protocol Last Admin: 02/03/17 10:02 Dose: 50 mls/hr Vancomycin HCl 1 gm/ Sodium (Chloride) 250 mls @ 166.667 mls/hr IVPB DAILY [facility] PRN Reason: Protocol Last Admin: 02/03/17 09:58 Dose: 166.667 mls/hr Azithromycin 500 mg/ Sodium (Chloride) 250 mls @ 250 mls/hr IVPB DAILY [facility] PRN Reason: Protocol Last Admin: 02/03/17 10:15 Dose: 250 mls/hr Piperacillin Sod/Tazobactam (Sod 3.375 gm/ Sodium Chloride) 100 mls @ 100 mls/ hr IVPB Q8 [facility] PRN Reason: Protocol Last Admin: 02/03/17 09:57 Dose: 100 mls/hr Ketorolac Tromethamine (Toradol) 15 mg IVP Q6 PRN PRN Reason: Pain, moderate (4-7) Lorazepam (Ativan) 1 mg PO TID PRN PRN Reason: Agitation Methylprednisolone (Solu-Medrol) 20 mg IVP Q8H [facility] Last Admin: 02/03/17 06:59 Dose: 20 mg Morphine Sulfate (Morphine) 2 mg IVP Q4 PRN PRN Reason: Pain, severe (8-10) Last Admin: 02/03/17 04:43 Dose: 2 mg Multivitamins/Minerals (Therapeutic-M Tab) 1 tab PO DAILY [facility] Last Admin: 02/03/17 10:04 Dose: Not Given Nicotine (Nicoderm Cq) 1 patch TD DAILY [facility] Last Admin: 02/03/17 10:06 Dose: 1 patch Ondansetron HCl (Zofran Inj) 4 mg IVP Q6H PRN PRN Reason: Nausea/Vomiting Fluticasone/Salmeterol (Advair Diskus 250/50) 1 puff IH Q12 [facility] Last Admin: 02/03/17 10:03 Dose: Not Given Thiamine HCl (Vitamin B1 Tab) 100 mg PO DAILY [facility] Last Admin: 02/03/17 10:03 Dose: Not Given - Labs Labs: 02/03/17 04:20 02/03/17 04:20 PT 16.7 Seconds (9.8-13.1) H 01/30/17 06:30 INR 1.5 (0.9-1.2) H 01/30/17 06:30 APTT 40.3 Seconds (25.6-37.1) H 01/27/17 18:15 - Constitutional Appears: Non-toxic, Confused, Chronically Ill - Head Exam Head Exam: NORMOCEPHALIC - Eye Exam Eye Exam: PERRL - ENT Exam ENT Exam: Mucous Membranes Dry - Neck Exam Neck Exam: absent: Lymphadenopathy - Respiratory Exam Respiratory Exam: Decreased Breath Sounds, Rhonchi - Cardiovascular Exam Cardiovascular Exam: REGULAR RHYTHM, +S1, +S2 - GI/Abdominal Exam GI & Abdominal Exam: Distended, Soft - Rectal Exam Rectal Exam: Deferred - Exam Exam: NORMAL INSPECTION - Extremities Exam Extremities Exam: absent: Pedal Edema - Back Exam Back Exam: absent: CVA tenderness (L), CVA tenderness (R) - Neurological Exam Neurological Exam: Altered - Psychiatric Exam Psychiatric exam: Depressed Assessment and Plan (1) Bilateral pneumonia Status: Acute (2) COPD exacerbation Status: Acute (3) Respiratory distress Status: Acute (4) Severe sepsis Status: Acute (5) Alcohol abuse Status: Acute
[2017-02-04] MEDS: Albuterol-Ipratrop 3 mg / 0.5 (3 ml) UD INH SCH ×7 (00:46→23:47)
[2017-02-04] MEDS ORDERED: Dexmedetomidine Hydrochloride 400 MCG in Sodium Chloride 0.9% 96 ML IV ONE (01:50)
[2017-02-04] MEDS: Piperacillin/Tazobact 3.375 GM in Sodium Chloride 0.9% 100 ML IVPB SCH ×3 (02:00→17:40)
[2017-02-04 05:51] LABS: CALCIUM 9.1 mg/dL (8.4-10.2); CARBON DIOXIDE 30 mmol/L (22-30); CHLORIDE 111 mmol/L (98-107); GFR AFRICAN-AMERICAN > 60; GLUCOSE,RANDOM 125 mg/dL (65-105); MAGNESIUM 1.6 MG/DL (1.6-2.3); POTASSIUM 4.3 MMOL/L (3.6-5.0); SODIUM 147 mmol/l (132-148)
[2017-02-04 05:54] LABS: BASO % 0.1 % (0.0-2.0); HEMATOCRIT 30.2 % (34.0-47.0); LYMPH # 0.6 K/uL (1.0-4.3); MEAN CORPUSCULAR HGB CONC 32.7 g/dL (33.0-37.0); MEAN PLATELET VOLUME 9.1 fl (7.2-11.7); MONO # 0.7 K/uL (0.0-0.8); MONO % 7.1 % (0.0-10.0); NEUT # 8.7 K/uL (1.8-7.0); NEUT % 86.8 % (50.0-75.0); NRBC % 0.1 % (0.0-0.0); RED CELL DISTRIBUTION WIDTH 16.3 % (11.5-14.5)
[2017-02-04 06:00] LABS: BLOOD UREA NITROGEN 42 mg/dl (7-17)
[2017-02-04] MEDS: Fluconazole IV 100mg/50 ml NS 50 ML IVPB SCH (08:48)
[2017-02-04] MEDS: Fluticasone-Salmeterol 250-50mcg Diskus IH SCH ×2 (08:54→22:15)
[2017-02-04] MEDS: Multivitamin With Minerals Tab PO SCH (08:57)
[2017-02-04] MEDS: MethylPREDNISolone 40 mg Vial IVP SCH ×3 (08:57→16:19)
[2017-02-04] MEDS: guaiFENesin 600 mg ER Tab PO SCH ×2 (09:08→22:16)
--- NOTE | 2017-02-04 09:39 | CP.PCM.PN ---
Subjective - Date & Time of Evaluation Date of Evaluation: 02/04/17 Time of Evaluation: 09:00 - Subjective Subjective: Patient seen and examined bedside.Lying in bed on high flow oxygen 20 LPM on FIO2 60 % , saturating 93 %. Patient is off Presedex drip since 6 AM this morning, awake , alert , knows that she is in hospital , very agitated , yelling and asking Help and wants to be helped to get up.Very restless. states that all her body hurts. BP 127/37 HR 77 afebrile saturating 92 % on high flow oxygen FIo2 60 % WBC 10 K hgb 9.9 plt 108K INR 1.5 Objective - Vital Signs/Intake and Output Vital Signs (last 24 hours): Temp Pulse Resp BP Pulse Ox 98.9 F 77 17 127/37 L 100 02/04/17 08:00 02/04/17 08:00 02/04/17 08:00 02/04/17 08:00 02/04/17 08:00 Intake and Output: 02/04/17 02/04/17 06:59 18:59 Intake Total 260 Balance 260 - Medications Medications: Current Medications Acetaminophen (Tylenol 325mg Tab) 650 mg PO Q6H PRN PRN Reason: Pain, Mild (1-3) Acetaminophen (Tylenol 325mg Tab) 650 mg PO Q6H PRN PRN Reason: Fever >100.4 F Albuterol/Ipratropium (Duoneb 3 Mg/0.5 Mg (3 Ml) Ud) 3 ml INH RQ4 [facility] Last Admin: 02/04/17 07:59 Dose: 3 ml Chlordiazepoxide (Librium) 50 mg PO Q6 [facility] Last Admin: 02/04/17 03:27 Dose: Not Given Docusate Sodium (Colace) 100 mg PO BID PRN PRN Reason: Constipation Enoxaparin Sodium (Lovenox) 30 mg SC DAILY [facility] PRN Reason: Protocol Folic Acid (Folic Acid) 1 mg PO DAILY [facility] Last Admin: 02/04/17 08:56 Dose: 1 mg Guaifenesin (Mucinex La) 600 mg PO Q12 [facility] Last Admin: 02/04/17 09:08 Dose: 600 mg Fluconazole (Diflucan Iv 100 Mg/50 Ml Ns) 50 mls @ 50 mls/hr IVPB DAILY [facility] PRN Reason: Protocol Last Admin: 02/04/17 08:48 Dose: 50 mls/hr Vancomycin HCl 1 gm/ Sodium (Chloride) 250 mls @ 166.667 mls/hr IVPB DAILY [facility] PRN Reason: Protocol Last Admin: 02/04/17 08:59 Dose: 166.667 mls/hr Azithromycin 500 mg/ Sodium (Chloride) 250 mls @ 250 mls/hr IVPB DAILY [facility] PRN Reason: Protocol Last Admin: 02/03/17 10:15 Dose: 250 mls/hr Piperacillin Sod/Tazobactam (Sod 3.375 gm/ Sodium Chloride) 100 mls @ 100 mls/ hr IVPB Q8 [facility] PRN Reason: Protocol Last Admin: 02/04/17 02:00 Dose: 100 mls/hr Ketorolac Tromethamine (Toradol) 15 mg IVP Q6 PRN PRN Reason: Pain, moderate (4-7) Lorazepam (Ativan) 1 mg PO TID PRN PRN Reason: Agitation Methylprednisolone (Solu-Medrol) 20 mg IVP Q8H [facility] Last Admin: 02/04/17 08:57 Dose: 20 mg Morphine Sulfate (Morphine) 2 mg IVP Q4 PRN PRN Reason: Pain, severe (8-10) Last Admin: 02/04/17 08:40 Dose: 2 mg Multivitamins/Minerals (Therapeutic-M Tab) 1 tab PO DAILY [facility] Last Admin: 02/04/17 08:57 Dose: 1 tab Nicotine (Nicoderm Cq) 1 patch TD DAILY [facility] Last Admin: 02/04/17 08:57 Dose: 1 patch Ondansetron HCl (Zofran Inj) 4 mg IVP Q6H PRN PRN Reason: Nausea/Vomiting Fluticasone/Salmeterol (Advair Diskus 250/50) 1 puff IH Q12 [facility] Last Admin: 02/04/17 08:54 Dose: 1 puff Thiamine HCl (Vitamin B1 Tab) 100 mg PO DAILY [facility] Last Admin: 02/04/17 08:59 Dose: 100 mg - Labs Labs: 02/04/17 04:20 02/04/17 04:20 PT 16.7 Seconds (9.8-13.1) H 01/30/17 06:30 INR 1.5 (0.9-1.2) H 01/30/17 06:30 APTT 40.3 Seconds (25.6-37.1) H 01/27/17 18:15 - Constitutional Appears: In Acute Distress, Agitated, Chronically Ill, Other (obese , restless ) - Head Exam Head Exam: ATRAUMATIC, NORMOCEPHALIC - Eye Exam Eye Exam: EOMI, PERRL Pupil Exam: NORMAL ACCOMODATION - ENT Exam ENT Exam: Mucous Membranes Dry, Normal Exam - Neck Exam Neck Exam: Full ROM, Normal Inspection - Respiratory Exam Respiratory Exam: Decreased Breath Sounds (bibasilar ), Prolonged Expiratory Phase, Wheezes (scattered expiratory wheezing ) - Cardiovascular Exam Cardiovascular Exam: Tachycardia, +S1, +S2. absent: JVD - GI/Abdominal Exam GI & Abdominal Exam: Soft, Normal Bowel Sounds. absent: Distended, Guarding, Tenderness, Rebound - Rectal Exam Rectal Exam: Deferred - Extremities Exam Extremities Exam: Pedal Edema (2 + ) - Neurological Exam Neurological Exam: Alert, Awake, CN II-XII Intact - Psychiatric Exam Psychiatric exam: Agitated, Anxious, Flat Affect - Skin Skin Exam: Dry, Pallor, Warm Assessment and Plan - Assessment and Plan (Free Text) Assessment: 51 y/o female with COPD , fatty liver, Chronic ETOH abuse ( daily 8 cups of 8 ounce vodka ) , smoker , chronic lower back pain brought to ER for evaluation by EMS for facial and lower extremity swelling , SOB and lower back pain. As per patient she has some baseline SOB with ambulation and has chronic lower back pain . Pt was having some lower back pain for which she took some Motrin and Advil PM. and when she woke up she noticed her face and eyes to be swollen and her lower extremities were swollen as well. She could not get out of bed and was having significant back pain . In the ED , was found to be in respiratory distress,with dyspnea RR 35 O2sat 94 %, slightly hypotensive BP 96/65 tachycardic HR 122. She was given 2 Duonebs in the field, 125 mg IV solumedrol in ER , started on IVF and placed on High Flow O2 ,20 LPM FIO2 60 % Her ABG showed PO2 70 PCO2 35 pH 7.38 . CXR showed bilateral infiltrates worse on the right WBC found to be elevated 16.8 Hgb 10 BUN/Cr 20/1.4 rigoberto 6.6 ASt / ALT 150/26 lactic acid 2.6 ETOH levels 73 Physical exam significant for tremors , increased work of breathing , periorbital, facial and lower extremity edema, her breath smelled of alcohol. She was admitted in ICU for close monitoring and treatment, she improved and was transferred to telemetry but became very agitated , restless , confused , tachypneic and tachycardic and so was transferred back to ICU for close monitoring. She was placed on High Flow Oxygen and started on Presedex drip .At present off presedex drip, very agitated and restless. 1. Severe Sepsis-- improving Most likely secondary to multifocal pneumonia patient was hypotensive,tachycardic,hypoxemic with WBC 16.8 and CXR showing bilateral infiltrates, lactate 2.6 on admission Sputum cx positive for yeast Placed on High Flow Oxygen due to resp insuff Continue Duonebs, IV vanco , Zosyn, Zithromax and Diflucan ID consulted: Dr Escalera 2.Acute hypoxemic respiratory failure Most likely secondary to multi lobar Pneumonia and COPD exacerbation on Duonebs ,Solumedrol IV 20 mg Q8 placed on High Flow O2 via NC 20 LPM FIO2 60 % CT chest showed multifocal infiltrates Pulmonary and ID consult appreciated Continue IV antibiotics, vanco, Zosyn , Diflucan and Zithromax and Duonebs 3. Multifocal Pneumonia ID and pulmonary consulted on Vanco, Zosyn,Zithromax and Diflucan vanco trough 9 Sputum cx growing yeast patient is a long time smoker so will need to follow up resolution of infiltrates to rule out any underlying malignancy 4. Facial and lower extremity edema unclear etiology of facial edema , resolved TSH : normal Given Solumedrol 124, Benadry and Pepcid LE venous doppler negative for DVT Echo showed normal LVF EF 65 -70 % given lasix Edema sec to liver dis ? 5. ETOH abuse / Delirium Tremens patient at present agitated and restless was started on Precedx drip in ICU and has been off drip since 6 Am this AM continue Thiamine, Folic acid and MVI Continue hydration Librium and Ativan PRN Seizure precautions/ withdrawal precautions 6. SUNDAR improved no prior records and unknown baseline renal function improved 7.COPD exacerbation-- improved Duonebs , high flow pulmonary consulted counseled on smoking decreased solumedrol 20 mg IV Q8 8. Alcoholic liver Bill 6.6 AST 150 on admission. rigoberto trending down to 2.9 CT chest showed hepatomegaly , fatty infiltration , some ascitic fluid and umbilical vein recannulization significant for portal hypertension \ US showed: Hepatomegaly with steatosis.Trace perihepatic ascites.Nonspecific gallbladder wall thickening. Gallbladder wall thickening is a nonspecific finding which can be seen with ascites, hepatitis, cholecystitis,CHF or hypoproteinemic states. patient has no abdominal pain , no fever , no signs of cholecystitis Continue monitoring 9. Chronic Lower back pain Ct chest also showed mild chronic compression fracture in mid thoracic spine pain management consulted (waiting on recommendations) Continue morphine PRN Started Fentanyl patch PT eval 10.Anemia unclear etiology Normal Iron and B12 level cont Thiamine 11. Smoker on nicotine patch 12 Thrombocytopenia unclear if sec to meds - Zosyn Hold Lovenox will check HIT 13. DVT prophylaxis GI prophylaxis Lovenox- on hold due to low platelet Pepcid
--- NOTE | 2017-02-04 14:02 | CP.PCM.PN ---
Subjective - Date & Time of Evaluation Date of Evaluation: 02/04/17 Time of Evaluation: 09:00 - Subjective Subjective: remains bedridden and lethargic less sob no fever cultures neg for MRSA so far Objective - Vital Signs/Intake and Output Vital Signs (last 24 hours): Temp Pulse Resp BP Pulse Ox 97.7 F 96 H 25 H 123/62 100 02/04/17 12:00 02/04/17 12:00 02/04/17 12:00 02/04/17 12:00 02/04/17 12:00 Intake and Output: 02/04/17 02/04/17 06:59 18:59 Intake Total 260 600 Balance 260 600 - Medications Medications: Current Medications Acetaminophen (Tylenol 325mg Tab) 650 mg PO Q6H PRN PRN Reason: Pain, Mild (1-3) Acetaminophen (Tylenol 325mg Tab) 650 mg PO Q6H PRN PRN Reason: Fever >100.4 F Albuterol/Ipratropium (Duoneb 3 Mg/0.5 Mg (3 Ml) Ud) 3 ml INH RQ4 [facility] Last Admin: 02/04/17 11:42 Dose: 3 ml Chlordiazepoxide (Librium) 50 mg PO Q6 [facility] Last Admin: 02/04/17 11:30 Dose: 50 mg Docusate Sodium (Colace) 100 mg PO BID PRN PRN Reason: Constipation Enoxaparin Sodium (Lovenox) 30 mg SC DAILY [facility] PRN Reason: Protocol Fentanyl (Duragesic) 1 patch TD Q3D [facility] PRN Reason: Protocol Last Admin: 02/04/17 10:03 Dose: 1 patch Folic Acid (Folic Acid) 1 mg PO DAILY [facility] Last Admin: 02/04/17 08:56 Dose: 1 mg Guaifenesin (Mucinex La) 600 mg PO Q12 [facility] Last Admin: 02/04/17 09:08 Dose: 600 mg Fluconazole (Diflucan Iv 100 Mg/50 Ml Ns) 50 mls @ 50 mls/hr IVPB DAILY [facility] PRN Reason: Protocol Last Admin: 02/04/17 08:48 Dose: 50 mls/hr Vancomycin HCl 1 gm/ Sodium (Chloride) 250 mls @ 166.667 mls/hr IVPB DAILY [facility] PRN Reason: Protocol Last Admin: 02/04/17 08:59 Dose: 166.667 mls/hr Azithromycin 500 mg/ Sodium (Chloride) 250 mls @ 250 mls/hr IVPB DAILY [facility] PRN Reason: Protocol Last Admin: 02/03/17 10:15 Dose: 250 mls/hr Piperacillin Sod/Tazobactam (Sod 3.375 gm/ Sodium Chloride) 100 mls @ 100 mls/ hr IVPB Q8 [facility] PRN Reason: Protocol Last Admin: 02/04/17 02:00 Dose: 100 mls/hr Ketorolac Tromethamine (Toradol) 15 mg IVP Q6 PRN PRN Reason: Pain, moderate (4-7) Lorazepam (Ativan) 1 mg PO TID PRN PRN Reason: Agitation Methylprednisolone (Solu-Medrol) 20 mg IVP Q8H [facility] Last Admin: 02/04/17 08:57 Dose: 20 mg Morphine Sulfate (Morphine) 2 mg IVP Q4 PRN PRN Reason: Pain, severe (8-10) Last Admin: 02/04/17 08:40 Dose: 2 mg Multivitamins/Minerals (Therapeutic-M Tab) 1 tab PO DAILY [facility] Last Admin: 02/04/17 08:57 Dose: 1 tab Nicotine (Nicoderm Cq) 1 patch TD DAILY [facility] Last Admin: 02/04/17 08:57 Dose: 1 patch Ondansetron HCl (Zofran Inj) 4 mg IVP Q6H PRN PRN Reason: Nausea/Vomiting Fluticasone/Salmeterol (Advair Diskus 250/50) 1 puff IH Q12 [facility] Last Admin: 02/04/17 08:54 Dose: 1 puff Thiamine HCl (Vitamin B1 Tab) 100 mg PO DAILY [facility] Last Admin: 02/04/17 08:59 Dose: 100 mg - Labs Labs: 02/04/17 04:20 02/04/17 04:20 PT 16.7 Seconds (9.8-13.1) H 01/30/17 06:30 INR 1.5 (0.9-1.2) H 01/30/17 06:30 APTT 40.3 Seconds (25.6-37.1) H 01/27/17 18:15 - Constitutional Appears: Non-toxic, Chronically Ill - Head Exam Head Exam: NORMOCEPHALIC - Eye Exam Eye Exam: PERRL. absent: Scleral icterus - ENT Exam ENT Exam: Mucous Membranes Dry - Neck Exam Neck Exam: absent: Lymphadenopathy - Respiratory Exam Respiratory Exam: Decreased Breath Sounds, Rhonchi - Cardiovascular Exam Cardiovascular Exam: REGULAR RHYTHM, +S1, +S2 - GI/Abdominal Exam GI & Abdominal Exam: Distended, Soft. absent: Tenderness - Rectal Exam Rectal Exam: Deferred - Exam Exam: NORMAL INSPECTION - Extremities Exam Extremities Exam: absent: Pedal Edema - Back Exam Back Exam: absent: CVA tenderness (L), CVA tenderness (R) - Neurological Exam Neurological Exam: Altered, Awake, CN II-XII Intact Assessment and Plan (1) Bilateral pneumonia Status: Acute (2) COPD exacerbation Status: Acute (3) Respiratory distress Status: Acute (4) Severe sepsis Status: Acute (5) Alcohol abuse Status: Acute
--- NOTE | 2017-02-04 15:11 | CP.CCUPN ---
CCU Subjective - Physician Review Subjective (Free Text): Precedex has been maintained at 1.0 mcg/kg/hour since yesterday and stopped thus AM, and has been calm after receiving narcotics for body pain, but will become intermittently agitated and shouting. Does not appear distressed nor overtly, severely delirious or exhibiting severe psychomotor agitation. She does answer simple questions appropriately. No fever spikes, other hemodynamics have been acceptable. Other vitals and I/O's reviewed. ROS: No other pertinent negs or positives on 10+ system review. PMSFH: All Nursing and physician documentation reviewed to date; no new pertinent info noted relevant to current medical problems. IMPRESSION / MAJOR PROBLEMS NOW: 1. Acute Hypoxemic Resp Failure 2. Bilateral Pneumonia 3. Azotemia / Dehydration, with Hyperkalemia; r/o CKD 4. Chronic ETOH Intoxication with Delirium Tremans 5. Anemia, with mixed Indices; unclear acute vs. chronic disease type 6. Hyperbilirubinemia PLAN: 1. Safe to discontinue Precedex infusion for now since her agiatation is controllable with re-direction and re-orientation. Nursing to try admistering Librium. If she refuses, will consider substituting IV Ativan in the interim when her doses of Librium are due to maintain some level of sedation for DTs. 2. Fentanyl patch previously held, could be resumed now as she is off Precedex. 3. Empiric Zosyn/Vanco to continue. 5. Wean fiO2 down on HFNC, remains at 60% oxygen and 20 LPM. Watch for need for assisted ventilatory support. Watch PCO2 levels. CCU Objective - Vital Signs / Intake & Output Vital Signs (Last 4 hours): Vital Signs Temp Pulse Resp BP Pulse Ox 02/04/17 12:00 97.7 F 96 H 25 H 123/62 100 Intake and Output (Last 8hrs): Intake & Output 02/04/17 02/04/17 02/04/17 06:59 14:59 22:59 Intake Total 221 600 Balance 221 600 Intake: IV 221 Intake, Piggyback 300 Oral 300 Other: # Voids Urine, Voided 1 - Physical Exam Head: Positive for: Atraumatic, Normocephalic Pupils: Positive for: PERRL Extroacular Muscles: Positive for: EOMI. Negative for: Gaze Palsy Conjunctiva: Positive for: Icteric Mouth: Positive for: Moist Mucous Membranes Pharnyx: Positive for: Normal Neck: Negative for: JVD, Lymphadenopathy Respiratory/Chest: Positive for: Wheezes, Decreased Breath Sounds. Negative for : Accessory Muscle Use Cardiovascular: Positive for: Regular Rate and Rhythm, Tachycardic. Negative for: Murmurs, Rub Abdomen: Positive for: Normal Bowel Sounds, Other (obese). Negative for: Tenderness, Distention, Mass/Organomegaly Lower Extremity: Positive for: Edema, NORMAL PULSES. Negative for: CALF TENDERNESS, Cyanosis Neurological: Positive for: GCS=15, Motor Func Grossly Intact, Normal Sensory Function Skin: Positive for: Warm, Dry, Other (3 ecchymotic areas along Right lateral back area). Negative for: Rashes Psychiatric: Positive for: Alert, Oriented x 3 - Medications Active Medications: Active Medications Generic Name Dose Route Start Last Admin Trade Name Freq PRN Reason Stop Dose Admin Acetaminophen 650 mg 02/01/17 17:29 Tylenol 325mg Tab PO Q6H PRN Pain, Mild (1-3) Acetaminophen 650 mg 02/01/17 17:29 Tylenol 325mg Tab PO Q6H PRN Fever >100.4 F Albuterol/Ipratropium 3 ml 02/01/17 20:00 02/04/17 15:02 Duoneb 3 Mg/0.5 Mg (3 Ml) Ud INH 3 ml RQ4 [facility] Administration Chlordiazepoxide 50 mg 02/01/17 22:00 02/04/17 11:30 Librium PO 50 mg Q6 [facility] Administration Docusate Sodium 100 mg 02/01/17 17:29 Colace PO BID PRN Constipation Enoxaparin Sodium 30 mg 02/02/17 09:00 Lovenox SC DAILY [facility] Protocol Fentanyl 1 patch 02/04/17 09:45 02/04/17 10:03 Duragesic TD 1 patch Q3D [facility] Administration Protocol Folic Acid 1 mg 02/02/17 09:00 02/04/17 08:56 Folic Acid PO 1 mg DAILY [facility] Administration Guaifenesin 600 mg 02/01/17 21:00 02/04/17 09:08 Mucinex La PO 600 mg Q12 [facility] Administration Fluconazole 50 mls @ 50 mls/hr 02/02/17 09:00 02/04/17 08:48 Diflucan Iv 100 Mg/50 Ml Ns IVPB 50 mls/hr DAILY [facility] Administration Protocol Vancomycin HCl 1 gm/ Sodium 250 mls @ 166.667 mls/hr 02/02/17 09:00 02/04/17 08:59 Chloride IVPB 166.667 mls/hr DAILY [facility] Administration Protocol Azithromycin 500 mg/ Sodium 250 mls @ 250 mls/hr 02/02/17 09:00 02/03/17 10: 15 Chloride IVPB 250 mls/hr DAILY [facility] Administration Protocol Piperacillin Sod/Tazobactam 100 mls @ 100 mls/hr 02/02/17 01:00 02/04/17 02: 00 Sod 3.375 gm/ Sodium Chloride IVPB 100 mls/hr Q8 [facility] Administration Protocol Ketorolac Tromethamine 15 mg 02/01/17 17:29 Toradol IVP Q6 PRN Pain, moderate (4-7) Lorazepam 1 mg 02/01/17 17:29 Ativan PO TID PRN Agitation Methylprednisolone 20 mg 02/01/17 23:30 02/04/17 08:57 Solu-Medrol IVP 20 mg Q8H [facility] Administration Morphine Sulfate 2 mg 02/01/17 17:29 02/04/17 08:40 Morphine IVP 2 mg Q4 PRN Administration Pain, severe (8-10) Multivitamins/Minerals 1 tab 02/02/17 09:00 02/04/17 08:57 Therapeutic-M Tab PO 1 tab DAILY [facility] Administration Nicotine 1 patch 02/02/17 09:00 02/04/17 08:57 Nicoderm Cq TD 1 patch DAILY [facility] Administration Ondansetron HCl 4 mg 02/01/17 17:29 Zofran Inj IVP Q6H PRN Nausea/Vomiting Fluticasone/Salmeterol 1 puff 02/01/17 21:00 02/04/17 08:54 Advair Diskus 250/50 IH 1 puff Q12 [facility] Administration Thiamine HCl 100 mg 02/02/17 09:00 02/04/17 08:59 Vitamin B1 Tab PO 100 mg DAILY [facility] Administration - Patient Studies Lab Studies: Microbiology Studies 02/02/17 11:24 MRSA Culture (Admit) - Final Naris MRSA NOT DETECTED Lab Studies 02/04/17 02/04/17 02/04/17 Range/Units 11:19 05:48 04:20 WBC (4.8-10.8) K/uL RBC (3.80-5.20) Mil/uL Hgb (12.0-16.0) g/dL Hct (34.0-47.0) % MCV (81.0-99.0) fl MCH (27.0-31.0) pg MCHC (33.0-37.0) g/dL RDW (11.5-14.5) % Plt Count (130-400) K/uL MPV (7.2-11.7) fl Neut % (Auto) (50.0-75.0) % Lymph % (Auto) (20.0-40.0) % Moca % (Auto) (0.0-10.0) % Eos % (Auto) (0.0-4.0) % Baso % (Auto) (0.0-2.0) % Neut # (1.8-7.0) K/uL Lymph # (1.0-4.3) K/uL Moca # (0.0-0.8) K/uL Eos # (0.0-0.7) K/uL Baso # (0.0-0.2) K/uL Sodium 147 (132-148) mmol/l Potassium 4.3 (3.6-5.0) MMOL/L Chloride 111 H (98-107) mmol/L Carbon Dioxide 30 (22-30) mmol/L Anion Gap 10 (10-20) BUN 42 H (7-17) mg/dl Creatinine 0.7 (0.7-1.2) mg/dl Est GFR ( Amer) > 60 Est GFR (Non-Af Amer) > 60 POC Glucose (mg/dL) 172 H 153 H (65-110) mg/dL Random Glucose 125 H (65-105) mg/dL Calcium 9.1 (8.4-10.2) mg/dL Magnesium 1.6 (1.6-2.3) MG/DL 02/04/17 02/03/17 02/03/17 Range/Units 04:20 21:28 16:51 WBC 10.0 (4.8-10.8) K/uL RBC 2.82 L (3.80-5.20) Mil/uL Hgb 9.9 L (12.0-16.0) g/dL Hct 30.2 L (34.0-47.0) % MCV 107.0 H (81.0-99.0) fl MCH 35.0 H (27.0-31.0) pg MCHC 32.7 L (33.0-37.0) g/dL RDW 16.3 H (11.5-14.5) % Plt Count 108 L (130-400) K/uL MPV 9.1 (7.2-11.7) fl Neut % (Auto) 86.8 H (50.0-75.0) % Lymph % (Auto) 6.0 L (20.0-40.0) % Moca % (Auto) 7.1 (0.0-10.0) % Eos % (Auto) 0.0 (0.0-4.0) % Baso % (Auto) 0.1 (0.0-2.0) % Neut # 8.7 H (1.8-7.0) K/uL Lymph # 0.6 L (1.0-4.3) K/uL Moca # 0.7 (0.0-0.8) K/uL Eos # 0.0 (0.0-0.7) K/uL Baso # 0.0 (0.0-0.2) K/uL Sodium (132-148) mmol/l Potassium (3.6-5.0) MMOL/L Chloride (98-107) mmol/L Carbon Dioxide (22-30) mmol/L Anion Gap (10-20) BUN (7-17) mg/dl Creatinine (0.7-1.2) mg/dl Est GFR ( Amer) Est GFR (Non-Af Amer) POC Glucose (mg/dL) 184 H 168 H (65-110) mg/dL Random Glucose (65-105) mg/dL Calcium (8.4-10.2) mg/dL Magnesium (1.6-2.3) MG/DL Laboratory Results - last 24 hr 02/03/17 02/03/17 02/04/17 16:51 21:28 04:20 WBC 10.0 RBC 2.82 L Hgb 9.9 L Hct 30.2 L MCV 107.0 H MCH 35.0 H MCHC 32.7 L RDW 16.3 H Plt Count 108 L MPV 9.1 Neut % (Auto) 86.8 H Lymph % (Auto) 6.0 L Moca % (Auto) 7.1 Eos % (Auto) 0.0 Baso % (Auto) 0.1 Neut # 8.7 H Lymph # 0.6 L Moca # 0.7 Eos # 0.0 Baso # 0.0 Sodium Potassium Chloride Carbon Dioxide Anion Gap BUN Creatinine Est GFR ( Amer) Est GFR (Non-Af Amer) POC Glucose (mg/dL) 168 H 184 H Random Glucose Calcium Magnesium 02/04/17 02/04/17 02/04/17 04:20 05:48 11:19 WBC RBC Hgb Hct MCV MCH MCHC RDW Plt Count MPV Neut % (Auto) Lymph % (Auto) Moca % (Auto) Eos % (Auto) Baso % (Auto) Neut # Lymph # Moca # Eos # Baso # Sodium 147 Potassium 4.3 Chloride 111 H Carbon Dioxide 30 Anion Gap 10 BUN 42 H Creatinine 0.7 Est GFR ( Amer) > 60 Est GFR (Non-Af Amer) > 60 POC Glucose (mg/dL) 153 H 172 H Random Glucose 125 H Calcium 9.1 Magnesium 1.6 Fingerstick Blood Sugar Results: 172 Review of Systems - Review of Systems All systems: reviewed and no additional remarkable complaints except (as above) Critical Care Progress Note - Nutrition Nutrition: Nutrition Category Date Time Status Regular Diet [DIET] Diets 01/27/17 Lunch Active
[2017-02-04 16:00] LABS: HEPARIN-IND PLATELET AB Negative (Negative)
[2017-02-04] MEDS: Azithromycin 500 MG in Sodium Chloride 0.9% 250 ML IVPB SCH (16:15)
[2017-02-04] MEDS ORDERED: Albuterol-Ipratrop 3 mg / 0.5 (3 ml) UD INH STA (21:33)
[2017-02-04 22:01] LABS: ABG ALLEN TEST YES; ARTERIAL BLOOD FLOW 20; ARTERIAL BLOOD GAS HCO3 27.5 mmol/L (21-28); ARTERIAL BLOOD GAS MODE HFNC; ARTERIAL BLOOD GAS O2 CAPACITY 14.4 mL/dL (16-24); ARTERIAL BLOOD GAS O2 CONTENT 11.6 ML/dL (15-23); ARTERIAL BLOOD GAS PH 7.22 (7.35-7.45); ARTERIAL BLOOD GAS PO2 47 mm/Hg (80-100); ARTERIAL BLOOD HGB O2 SAT 76.5 % (95.0-98.0); HHB 18.4 % (0.0-5.0); METHEMOGLOBIN 2.1 % (0.0-3.0)
[2017-02-04] MEDS ORDERED: Naloxone 0.4 mg/ml Inj (Adult) IVP STA (22:14)
[2017-02-04 23:38] LABS: ABG ALLEN TEST YES; ARTERIAL BLOOD FLOW 25; ARTERIAL BLOOD GAS HCO3 29.3 mmol/L (21-28); ARTERIAL BLOOD GAS MODE HIGH FLOW LPM; ARTERIAL BLOOD GAS O2 CAPACITY 13.9 mL/dL (16-24); ARTERIAL BLOOD GAS O2 CONTENT 13.8 ML/dL (15-23); ARTERIAL BLOOD GAS PH 7.36 (7.35-7.45); ARTERIAL BLOOD GAS PO2 84 mm/Hg (80-100); ARTERIAL BLOOD HGB O2 SAT 94.6 % (95.0-98.0); CARBOXYHEMOGLOBIN 3.1 % (0.5-1.5); METHEMOGLOBIN 1.4 % (0.0-3.0)
[2017-02-05] MEDS: Piperacillin/Tazobact 3.375 GM in Sodium Chloride 0.9% 100 ML IVPB SCH ×3 (00:05→16:45)
[2017-02-05] MEDS: MethylPREDNISolone 40 mg Vial IVP SCH ×4 (00:06→23:56)
[2017-02-05] MEDS: Albuterol-Ipratrop 3 mg / 0.5 (3 ml) UD INH SCH ×5 (05:30→19:01)
[2017-02-05 05:42] LABS: ABG ALLEN TEST YES; ARTERIAL BLOOD FLOW 25; ARTERIAL BLOOD GAS HCO3 29.7 mmol/L (21-28); ARTERIAL BLOOD GAS MODE HIGH FLOW LPM; ARTERIAL BLOOD GAS O2 CAPACITY 13.9 mL/dL (16-24); ARTERIAL BLOOD GAS PH 7.33 (7.35-7.45); ARTERIAL BLOOD GAS PO2 58 mm/Hg (80-100); ARTERIAL BLOOD HGB O2 SAT 89.2 % (95.0-98.0); CARBOXYHEMOGLOBIN 3.3 % (0.5-1.5); HHB 5.9 % (0.0-5.0); METHEMOGLOBIN 1.6 % (0.0-3.0)
--- NOTE | 2017-02-05 07:55 | CP.PCM.PN ---
Objective - Vital Signs/Intake and Output Vital Signs (last 24 hours): Temp Pulse Resp BP Pulse Ox 97.7 F 85 8 L 145/82 100 02/05/17 04:00 02/05/17 06:00 02/05/17 07:15 02/05/17 06:00 02/05/17 06:00 Intake and Output: 02/05/17 02/05/17 06:59 18:59 Intake Total 150 Output Total 0 Balance 150 - Medications Medications: Current Medications Acetaminophen (Tylenol 325mg Tab) 650 mg PO Q6H PRN PRN Reason: Pain, Mild (1-3) Acetaminophen (Tylenol 325mg Tab) 650 mg PO Q6H PRN PRN Reason: Fever >100.4 F Albuterol/Ipratropium (Duoneb 3 Mg/0.5 Mg (3 Ml) Ud) 3 ml INH RQ4 [facility] Last Admin: 02/05/17 07:15 Dose: 3 ml Chlordiazepoxide (Librium) 25 mg PO Q8 [facility] Docusate Sodium (Colace) 100 mg PO BID PRN PRN Reason: Constipation Enoxaparin Sodium (Lovenox) 40 mg SC DAILY [facility] PRN Reason: Protocol Folic Acid (Folic Acid) 1 mg PO DAILY [facility] Last Admin: 02/04/17 08:56 Dose: 1 mg Guaifenesin (Mucinex La) 600 mg PO Q12 [facility] Last Admin: 02/04/17 22:16 Dose: Not Given Fluconazole (Diflucan Iv 100 Mg/50 Ml Ns) 50 mls @ 50 mls/hr IVPB DAILY [facility] PRN Reason: Protocol Last Admin: 02/04/17 08:48 Dose: 50 mls/hr Vancomycin HCl 1 gm/ Sodium (Chloride) 250 mls @ 166.667 mls/hr IVPB DAILY [facility] PRN Reason: Protocol Last Admin: 02/04/17 08:59 Dose: 166.667 mls/hr Azithromycin 500 mg/ Sodium (Chloride) 250 mls @ 250 mls/hr IVPB DAILY [facility] PRN Reason: Protocol Last Admin: 02/04/17 16:15 Dose: 250 mls/hr Piperacillin Sod/Tazobactam (Sod 3.375 gm/ Sodium Chloride) 100 mls @ 100 mls/ hr IVPB Q8 [facility] PRN Reason: Protocol Last Admin: 02/05/17 00:05 Dose: 100 mls/hr Ketorolac Tromethamine (Toradol) 15 mg IVP Q6 PRN PRN Reason: Pain, moderate (4-7) Last Admin: 02/04/17 22:45 Dose: 15 mg Lorazepam (Ativan) 1 mg PO TID PRN PRN Reason: Agitation Methylprednisolone (Solu-Medrol) 20 mg IVP Q8H [facility] Last Admin: 02/05/17 00:06 Dose: 20 mg Morphine Sulfate (Morphine) 2 mg IVP Q4 PRN PRN Reason: Pain, severe (8-10) Last Admin: 02/04/17 08:40 Dose: 2 mg Multivitamins/Minerals (Therapeutic-M Tab) 1 tab PO DAILY [facility] Last Admin: 02/04/17 08:57 Dose: 1 tab Nicotine (Nicoderm Cq) 1 patch TD DAILY [facility] Last Admin: 02/04/17 08:57 Dose: 1 patch Ondansetron HCl (Zofran Inj) 4 mg IVP Q6H PRN PRN Reason: Nausea/Vomiting Fluticasone/Salmeterol (Advair Diskus 250/50) 1 puff IH Q12 [facility] Last Admin: 02/04/17 22:15 Dose: Not Given Thiamine HCl (Vitamin B1 Tab) 100 mg PO DAILY [facility] Last Admin: 02/04/17 08:59 Dose: 100 mg - Labs Labs: 02/04/17 04:20 02/04/17 04:20 PT 16.7 Seconds (9.8-13.1) H 01/30/17 06:30 INR 1.5 (0.9-1.2) H 01/30/17 06:30 APTT 40.3 Seconds (25.6-37.1) H 01/27/17 18:15 Assessment and Plan - Assessment and Plan (Free Text) Assessment: 51 y/o female with COPD , fatty liver, Chronic ETOH abuse ( daily 8 cups of 8 ounce vodka ) , smoker , chronic lower back pain brought to ER for evaluation by EMS for facial and lower extremity swelling , SOB and lower back pain. As per patient she has some baseline SOB with ambulation and has chronic lower back pain . Pt was having some lower back pain for which she took some Motrin and Advil PM. and when she woke up she noticed her face and eyes to be swollen and her lower extremities were swollen as well. She could not get out of bed and was having significant back pain . In the ED , was found to be in respiratory distress,with dyspnea RR 35 O2sat 94 %, slightly hypotensive BP 96/65 tachycardic HR 122. She was given 2 Duonebs in the field, 125 mg IV solumedrol in ER , started on IVF and placed on High Flow O2 ,20 LPM FIO2 60 % Her ABG showed PO2 70 PCO2 35 pH 7.38 . CXR showed bilateral infiltrates worse on the right WBC found to be elevated 16.8 Hgb 10 BUN/Cr 20/1.4 rigoberto 6.6 ASt / ALT 150/26 lactic acid 2.6 ETOH levels 73 Physical exam significant for tremors , increased work of breathing , periorbital, facial and lower extremity edema, her breath smelled of alcohol. She was admitted in ICU for close monitoring and treatment, she improved and was transferred to telemetry but became very agitated , restless , confused , tachypneic and tachycardic and so was transferred back to ICU for close monitoring. She was placed on High Flow Oxygen and started on Presedex drip .At present off presedex drip, very agitated and restless. 1. Severe Sepsis-- improving Most likely secondary to multifocal pneumonia patient was hypotensive,tachycardic,hypoxemic with WBC 16.8 and CXR showing bilateral infiltrates, lactate 2.6 on admission Sputum cx positive for yeast Placed on High Flow Oxygen due to resp insuff Continue Duonebs, IV vanco , Zosyn, Zithromax and Diflucan ID consulted: Dr Escalera 2.Acute hypoxemic respiratory failure Most likely secondary to multi lobar Pneumonia and COPD exacerbation on Duonebs ,Solumedrol IV 20 mg Q8 placed on High Flow O2 via NC 20 LPM FIO2 60 % CT chest showed multifocal infiltrates Pulmonary and ID consult appreciated Continue IV antibiotics, vanco, Zosyn , Diflucan and Zithromax and Duonebs 3. Multifocal Pneumonia ID and pulmonary consulted on Vanco, Zosyn,Zithromax and Diflucan vanco trough 9 Sputum cx growing yeast patient is a long time smoker so will need to follow up resolution of infiltrates to rule out any underlying malignancy 4. Facial and lower extremity edema unclear etiology of facial edema , resolved TSH : normal Given Solumedrol 124, Benadry and Pepcid LE venous doppler negative for DVT Echo showed normal LVF EF 65 -70 % given lasix Edema sec to liver dis ? 5. ETOH abuse / Delirium Tremens patient at present agitated and restless was started on Precedx drip in ICU and has been off drip since 6 Am this AM continue Thiamine, Folic acid and MVI Continue hydration Librium and Ativan PRN Seizure precautions/ withdrawal precautions 6. SUNDAR improved no prior records and unknown baseline renal function improved 7.COPD exacerbation-- improved Duonebs , high flow pulmonary consulted counseled on smoking decreased solumedrol 20 mg IV Q8 8. Alcoholic liver Bill 6.6 AST 150 on admission. rigoberto trending down to 2.9 CT chest showed hepatomegaly , fatty infiltration , some ascitic fluid and umbilical vein recannulization significant for portal hypertension \ US showed: Hepatomegaly with steatosis.Trace perihepatic ascites.Nonspecific gallbladder wall thickening. Gallbladder wall thickening is a nonspecific finding which can be seen with ascites, hepatitis, cholecystitis,CHF or hypoproteinemic states. patient has no abdominal pain , no fever , no signs of cholecystitis Continue monitoring 9. Chronic Lower back pain Ct chest also showed mild chronic compression fracture in mid thoracic spine pain management consulted (waiting on recommendations) Continue morphine PRN Started Fentanyl patch PT eval 10.Anemia unclear etiology Normal Iron and B12 level cont Thiamine 11. Smoker on nicotine patch 12 Thrombocytopenia unclear if sec to meds - Zosyn Hold Lovenox will check HIT 13. DVT prophylaxis GI prophylaxis Lovenox- on hold due to low platelet Pepcid
--- NOTE | 2017-02-05 07:57 | CP.CCUPN ---
CCU Subjective - Physician Review Subjective (Free Text): Events overnight reviewed and noted as per Night Hospitalist/Clipper Machine: oversedation effects from narcotics noted and reversed with Naloxone. present;y appears calm, euyes closed, semi-arousable to name callimg, does not become overtly agitated when stimulated; slow and shallow respirations noted, but no accessory mm use, nor abdominal breathing movements noted. She has now been off Precedex over 24H. No fever spikes, other hemodynamics have been acceptable. Other vitals and I/O's reviewed. ROS: No other pertinent negs or positives on 10+ system review. PMSFH: All Nursing and physician documentation reviewed to date; no new pertinent info noted relevant to current medical problems. IMPRESSION / MAJOR PROBLEMS NOW: 1. Hypercarbia with Acute Resp Insufficiency 2. Bilateral Pneumonia 3. Azotemia / Dehydration, with Hyperkalemia; r/o CKD 4. Chronic ETOH Intoxication with Delirium Tremans 5. Anemia, with mixed Indices; unclear acute vs. chronic disease type 6. Hyperbilirubinemia PLAN: 1. Keep transdermal Fentanyl off for now unless patient has intractable pain and becomes overly agitated from this. Watch Toradol dosing too. ?? other adverse medication effects leading to drowsiness: Guaifenisin. If remains unexpectedly somnolent, will get CT Brain, but she does exhibit tone and withdraws all extremities. 2. Librium dose reduced and held for now. 3. Monitor resp satus closely, PCO2 levels, does not yet need airway protection nor assisted breathing at this particular moment. 4. Keep on HFNC - 60% oxygen at 25 LPM. Could try decreasing O2 to 50% as tolerated. 5. Empiric Zosyn/Vanco to continue. CCU Objective - Vital Signs / Intake & Output Vital Signs (Last 4 hours): Vital Signs Temp Pulse Resp BP Pulse Ox 02/05/17 07:15 8 L 02/05/17 06:00 85 6 L 145/82 100 02/05/17 05:44 17 02/05/17 04:00 97.7 F 90 10 L 150/83 96 Intake and Output (Last 8hrs): Intake & Output 02/04/17 02/05/17 02/05/17 22:59 06:59 14:59 Intake Total 50 150 Output Total 0 Balance 50 150 Intake: Intake, Piggyback 50 100 Oral 50 Output: Urine 0 Urine, Voided 0 Other: # Voids Urine, Voided 1 - Physical Exam Head: Positive for: Atraumatic, Normocephalic Pupils: Positive for: PERRL Extroacular Muscles: Positive for: EOMI. Negative for: Gaze Palsy Conjunctiva: Positive for: Icteric Mouth: Positive for: Moist Mucous Membranes Pharnyx: Positive for: Normal Neck: Negative for: JVD, Lymphadenopathy Respiratory/Chest: Positive for: Wheezes, Decreased Breath Sounds. Negative for : Accessory Muscle Use Cardiovascular: Positive for: Regular Rate and Rhythm, Tachycardic. Negative for: Murmurs, Rub Abdomen: Positive for: Normal Bowel Sounds, Other (obese). Negative for: Tenderness, Distention, Mass/Organomegaly Lower Extremity: Positive for: Edema, NORMAL PULSES. Negative for: CALF TENDERNESS, Cyanosis Neurological: Positive for: Motor Func Grossly Intact, Normal Sensory Function. Negative for: GCS=15 (GCS= 9 ([id number])) Skin: Positive for: Warm, Dry, Other (3 ecchymotic areas along Right lateral back area). Negative for: Rashes Psychiatric: Positive for: Lethargic - Medications Active Medications: Active Medications Generic Name Dose Route Start Last Admin Trade Name Freq PRN Reason Stop Dose Admin Acetaminophen 650 mg 02/01/17 17:29 Tylenol 325mg Tab PO Q6H PRN Pain, Mild (1-3) Acetaminophen 650 mg 02/01/17 17:29 Tylenol 325mg Tab PO Q6H PRN Fever >100.4 F Albuterol/Ipratropium 3 ml 02/01/17 20:00 02/05/17 07:15 Duoneb 3 Mg/0.5 Mg (3 Ml) Ud INH 3 ml RQ4 [facility] Administration Chlordiazepoxide 25 mg 02/05/17 09:00 Librium PO Q8 [facility] Docusate Sodium 100 mg 02/01/17 17:29 Colace PO BID PRN Constipation Enoxaparin Sodium 40 mg 02/05/17 07:50 Lovenox SC DAILY [facility] Protocol Folic Acid 1 mg 02/02/17 09:00 02/04/17 08:56 Folic Acid PO 1 mg DAILY [facility] Administration Guaifenesin 600 mg 02/01/17 21:00 02/04/17 22:16 Mucinex La PO Not Given Q12 [facility] Fluconazole 50 mls @ 50 mls/hr 02/02/17 09:00 02/04/17 08:48 Diflucan Iv 100 Mg/50 Ml Ns IVPB 50 mls/hr DAILY [facility] Administration Protocol Vancomycin HCl 1 gm/ Sodium 250 mls @ 166.667 mls/hr 02/02/17 09:00 02/04/17 08:59 Chloride IVPB 166.667 mls/hr DAILY [facility] Administration Protocol Azithromycin 500 mg/ Sodium 250 mls @ 250 mls/hr 02/02/17 09:00 02/04/17 16: 15 Chloride IVPB 250 mls/hr DAILY [facility] Administration Protocol Piperacillin Sod/Tazobactam 100 mls @ 100 mls/hr 02/02/17 01:00 02/05/17 00: 05 Sod 3.375 gm/ Sodium Chloride IVPB 100 mls/hr Q8 [facility] Administration Protocol Ketorolac Tromethamine 15 mg 02/01/17 17:29 02/04/17 22:45 Toradol IVP 15 mg Q6 PRN Administration Pain, moderate (4-7) Lorazepam 1 mg 02/01/17 17:29 Ativan PO TID PRN Agitation Methylprednisolone 20 mg 02/01/17 23:30 02/05/17 00:06 Solu-Medrol IVP 20 mg Q8H [facility] Administration Morphine Sulfate 2 mg 02/01/17 17:29 02/04/17 08:40 Morphine IVP 2 mg Q4 PRN Administration Pain, severe (8-10) Multivitamins/Minerals 1 tab 02/02/17 09:00 02/04/17 08:57 Therapeutic-M Tab PO 1 tab DAILY [facility] Administration Nicotine 1 patch 02/02/17 09:00 02/04/17 08:57 Nicoderm Cq TD 1 patch DAILY [facility] Administration Ondansetron HCl 4 mg 02/01/17 17:29 Zofran Inj IVP Q6H PRN Nausea/Vomiting Fluticasone/Salmeterol 1 puff 02/01/17 21:00 02/04/17 22:15 Advair Diskus 250/50 IH Not Given Q12 [facility] Thiamine HCl 100 mg 02/02/17 09:00 02/04/17 08:59 Vitamin B1 Tab PO 100 mg DAILY [facility] Administration - Patient Studies Lab Studies: Lab Studies 02/05/17 02/05/17 02/04/17 Range/Units 05:42 05:36 23:32 pCO2 64 H 57 H (35-45) mm/Hg pO2 58 L 84 (80-100) mm/Hg HCO3 29.7 H 29.3 H (21-28) mmol/L ABG pH 7.33 L 7.36 (7.35-7.45) ABG Total CO2 35.7 H 33.9 H (22-28) mmol/L ABG O2 Saturation 93.8 L 99.0 H (95-98) % ABG O2 Content 13.0 L 13.8 L (15-23) ML/dL ABG Base Excess 6.3 H 5.6 H (-2.0-3.0) mmol/L ABG Hemoglobin 10.3 L 10.3 L (11.7-17.4) g/dL ABG Carboxyhemoglobin 3.3 H 3.1 H (0.5-1.5) % POC ABG HHb (Measured) 5.9 H 1.0 (0.0-5.0) % ABG Methemoglobin 1.6 1.4 (0.0-3.0) % ABG O2 Capacity 13.9 L 13.9 L (16-24) mL/dL Dick Test Yes Yes A-a O2 Difference 290.0 273.0 mm/Hg Hgb O2 Saturation 89.2 L 94.6 L (95.0-98.0) % Liter Flow 25 25 Vent Mode High flow lpm High flow lpm FiO2 60.0 60.0 % Blood Gas Comments Crit Value Called To Crit Value Called By Crit Value Read Back Blood Gas Notified Time POC Glucose (mg/dL) 115 H (65-110) mg/dL Heparin-induced Plt Ab (Negative) 02/04/17 02/04/17 02/04/17 Range/Units 21:33 21:27 16:08 pCO2 82 H* (35-45) mm/Hg pO2 47 L (80-100) mm/Hg HCO3 27.5 (21-28) mmol/L ABG pH 7.22 L (7.35-7.45) ABG Total CO2 36.1 H (22-28) mmol/L ABG O2 Saturation 80.6 L (95-98) % ABG O2 Content 11.6 L (15-23) ML/dL ABG Base Excess 3.9 H (-2.0-3.0) mmol/L ABG Hemoglobin 10.8 L (11.7-17.4) g/dL ABG Carboxyhemoglobin 3.0 H (0.5-1.5) % POC ABG HHb (Measured) 18.4 H (0.0-5.0) % ABG Methemoglobin 2.1 (0.0-3.0) % ABG O2 Capacity 14.4 L (16-24) mL/dL Dick Test Yes A-a O2 Difference 278.0 mm/Hg Hgb O2 Saturation 76.5 L (95.0-98.0) % Liter Flow 20 Vent Mode Hfnc FiO2 60.0 % Blood Gas Comments Hfnc 20 lpm / 60% Crit Value Called To Melba kruse r.n. Crit Value Called By Kat Crit Value Read Back Y Blood Gas Notified Time 2156 POC Glucose (mg/dL) 153 H 112 H (65-110) mg/dL Heparin-induced Plt Ab (Negative) 02/04/17 02/02/17 Range/Units 11:19 08:51 pCO2 (35-45) mm/Hg pO2 (80-100) mm/Hg HCO3 (21-28) mmol/L ABG pH (7.35-7.45) ABG Total CO2 (22-28) mmol/L ABG O2 Saturation (95-98) % ABG O2 Content (15-23) ML/dL ABG Base Excess (-2.0-3.0) mmol/L ABG Hemoglobin (11.7-17.4) g/dL ABG Carboxyhemoglobin (0.5-1.5) % POC ABG HHb (Measured) (0.0-5.0) % ABG Methemoglobin (0.0-3.0) % ABG O2 Capacity (16-24) mL/dL Dick Test A-a O2 Difference mm/Hg Hgb O2 Saturation (95.0-98.0) % Liter Flow Vent Mode FiO2 % Blood Gas Comments Crit Value Called To Crit Value Called By Crit Value Read Back Blood Gas Notified Time POC Glucose (mg/dL) 172 H (65-110) mg/dL Heparin-induced Plt Ab Negative (Negative) Laboratory Results - last 24 hr 02/02/17 02/04/17 02/04/17 08:51 11:19 16:08 pCO2 pO2 HCO3 ABG pH ABG Total CO2 ABG O2 Saturation ABG O2 Content ABG Base Excess ABG Hemoglobin ABG Carboxyhemoglobin POC ABG HHb (Measured) ABG Methemoglobin ABG O2 Capacity Dick Test A-a O2 Difference Hgb O2 Saturation Liter Flow Vent Mode FiO2 Blood Gas Comments Crit Value Called To Crit Value Called By Crit Value Read Back Blood Gas Notified Time POC Glucose (mg/dL) 172 H 112 H Heparin-induced Plt Ab Negative 02/04/17 02/04/17 02/04/17 21:27 21:33 23:32 pCO2 82 H* 57 H pO2 47 L 84 HCO3 27.5 29.3 H ABG pH 7.22 L 7.36 ABG Total CO2 36.1 H 33.9 H ABG O2 Saturation 80.6 L 99.0 H ABG O2 Content 11.6 L 13.8 L ABG Base Excess 3.9 H 5.6 H ABG Hemoglobin 10.8 L 10.3 L ABG Carboxyhemoglobin 3.0 H 3.1 H POC ABG HHb (Measured) 18.4 H 1.0 ABG Methemoglobin 2.1 1.4 ABG O2 Capacity 14.4 L 13.9 L Dick Test Yes Yes A-a O2 Difference 278.0 273.0 Hgb O2 Saturation 76.5 L 94.6 L Liter Flow 20 25 Vent Mode Hfnc High flow lpm FiO2 60.0 60.0 Blood Gas Comments Hfnc 20 lpm / 60% Crit Value Called To Melba kruse r.n. Crit Value Called By Kat Crit Value Read Back Y Blood Gas Notified Time 2157 POC Glucose (mg/dL) 153 H Heparin-induced Plt Ab 02/05/17 02/05/17 05:36 05:42 pCO2 64 H pO2 58 L HCO3 29.7 H ABG pH 7.33 L ABG Total CO2 35.7 H ABG O2 Saturation 93.8 L ABG O2 Content 13.0 L ABG Base Excess 6.3 H ABG Hemoglobin 10.3 L ABG Carboxyhemoglobin 3.3 H POC ABG HHb (Measured) 5.9 H ABG Methemoglobin 1.6 ABG O2 Capacity 13.9 L Dick Test Yes A-a O2 Difference 290.0 Hgb O2 Saturation 89.2 L Liter Flow 25 Vent Mode High flow lpm FiO2 60.0 Blood Gas Comments Crit Value Called To Crit Value Called By Crit Value Read Back Blood Gas Notified Time POC Glucose (mg/dL) 115 H Heparin-induced Plt Ab Fingerstick Blood Sugar Results: 115 Review of Systems - Review of Systems Systems not reviewed;Unavailable: Altered Mental Status Critical Care Progress Note - Nutrition Nutrition: Nutrition Category Date Time Status Regular Diet [DIET] Diets 01/27/17 Lunch Active
[2017-02-05 08:15] LABS: BLOOD UREA NITROGEN 39 mg/dl (7-17); CALCIUM 9.7 mg/dL (8.4-10.2); CARBON DIOXIDE 32 mmol/L (22-30); CHLORIDE 108 mmol/L (98-107); GFR AFRICAN-AMERICAN > 60; GLUCOSE,RANDOM 115 mg/dL (65-105); POTASSIUM 4.4 MMOL/L (3.6-5.0); SODIUM 146 mmol/l (132-148)
[2017-02-05 08:16] LABS: HEMATOCRIT 31.1 % (34.0-47.0); MEAN CELL VOLUME 108.2 fl (81.0-99.0); MEAN CORPUSCULAR HEMOGLOBIN 34.2 pg (27.0-31.0); MEAN CORPUSCULAR HGB CONC 31.6 g/dL (33.0-37.0); RED CELL DISTRIBUTION WIDTH 17.1 % (11.5-14.5); WHITE BLOOD COUNT 18.7 K/uL (4.8-10.8)
[2017-02-05] MEDS: Fluticasone-Salmeterol 250-50mcg Diskus IH SCH ×2 (08:55→23:54)
[2017-02-05] MEDS: Fluconazole IV 100mg/50 ml NS 50 ML IVPB SCH (08:57)
[2017-02-05] MEDS: Multivitamin With Minerals Tab PO SCH (09:05)
--- NOTE | 2017-02-05 11:34 | CP.PCM.PN ---
Subjective - Date & Time of Evaluation Date of Evaluation: 02/05/17 Time of Evaluation: 07:30 - Subjective Subjective: Patient seen and examined bedside. Lying in bed , lethargic but responsive to verbal command, with RR 9 , saturating 98 % on high flow O2 vai NC 25 LPM FIO2 60 %. Given narcan overnight for lethargy with minimal improvement ABG this Am showed PCO2 64 PO@ 59 HCO3 29 Ph 7.3 CXR still pending with weak cough reflex unable to expectorate BP 145/82 HR 85 WBc trended up tto 18 .7 today , afebrile, HGB 9.8 Plt 170 K Objective - Vital Signs/Intake and Output Vital Signs (last 24 hours): Temp Pulse Resp BP Pulse Ox 97.1 F L 94 H 18 142/82 100 02/05/17 08:00 02/05/17 10:00 02/05/17 11:26 02/05/17 10:00 02/05/17 10:00 Intake and Output: 02/05/17 02/05/17 06:59 18:59 Intake Total 150 50 Output Total 0 Balance 150 50 - Medications Medications: Current Medications Acetaminophen (Tylenol 325mg Tab) 650 mg PO Q6H PRN PRN Reason: Pain, Mild (1-3) Acetaminophen (Tylenol 325mg Tab) 650 mg PO Q6H PRN PRN Reason: Fever >100.4 F Albuterol/Ipratropium (Duoneb 3 Mg/0.5 Mg (3 Ml) Ud) 3 ml INH RQ4 [facility] Last Admin: 02/05/17 11:26 Dose: 3 ml Chlordiazepoxide (Librium) 25 mg PO Q8 [facility] Docusate Sodium (Colace) 100 mg PO BID PRN PRN Reason: Constipation Last Admin: 02/05/17 08:56 Dose: 100 mg Enoxaparin Sodium (Lovenox) 40 mg SC DAILY [facility] PRN Reason: Protocol Folic Acid (Folic Acid) 1 mg PO DAILY [facility] Last Admin: 02/05/17 09:12 Dose: 1 mg Guaifenesin (Mucinex La) 600 mg PO Q12 [facility] Last Admin: 02/04/17 22:16 Dose: Not Given Fluconazole (Diflucan Iv 100 Mg/50 Ml Ns) 50 mls @ 50 mls/hr IVPB DAILY [facility] PRN Reason: Protocol Last Admin: 02/05/17 08:57 Dose: 50 mls/hr Vancomycin HCl 1 gm/ Sodium (Chloride) 250 mls @ 166.667 mls/hr IVPB DAILY [facility] PRN Reason: Protocol Last Admin: 02/05/17 09:16 Dose: 166.667 mls/hr Azithromycin 500 mg/ Sodium (Chloride) 250 mls @ 250 mls/hr IVPB DAILY [facility] PRN Reason: Protocol Last Admin: 02/04/17 16:15 Dose: 250 mls/hr Piperacillin Sod/Tazobactam (Sod 3.375 gm/ Sodium Chloride) 100 mls @ 100 mls/ hr IVPB Q8 [facility] PRN Reason: Protocol Last Admin: 02/05/17 00:05 Dose: 100 mls/hr Ketorolac Tromethamine (Toradol) 15 mg IVP Q6 PRN PRN Reason: Pain, moderate (4-7) Last Admin: 02/04/17 22:45 Dose: 15 mg Lorazepam (Ativan) 1 mg PO TID PRN PRN Reason: Agitation Methylprednisolone (Solu-Medrol) 20 mg IVP Q8H [facility] Last Admin: 02/05/17 09:05 Dose: 20 mg Morphine Sulfate (Morphine) 2 mg IVP Q4 PRN PRN Reason: Pain, severe (8-10) Last Admin: 02/04/17 08:40 Dose: 2 mg Multivitamins/Minerals (Therapeutic-M Tab) 1 tab PO DAILY [facility] Last Admin: 02/05/17 09:05 Dose: 1 tab Nicotine (Nicoderm Cq) 1 patch TD DAILY [facility] Last Admin: 02/05/17 09:13 Dose: 1 patch Ondansetron HCl (Zofran Inj) 4 mg IVP Q6H PRN PRN Reason: Nausea/Vomiting Fluticasone/Salmeterol (Advair Diskus 250/50) 1 puff IH Q12 [facility] Last Admin: 02/05/17 08:55 Dose: 1 puff Thiamine HCl (Vitamin B1 Tab) 100 mg PO DAILY [facility] Last Admin: 02/05/17 09:12 Dose: 100 mg - Labs Labs: 02/05/17 07:30 02/05/17 07:30 PT 16.7 Seconds (9.8-13.1) H 01/30/17 06:30 INR 1.5 (0.9-1.2) H 01/30/17 06:30 APTT 40.3 Seconds (25.6-37.1) H 01/27/17 18:15 - Constitutional Appears: Toxic, In Acute Distress (stil with some pain, confusion , restless when waken up), Other (lethargic ) - Head Exam Head Exam: ATRAUMATIC, NORMAL INSPECTION, NORMOCEPHALIC - Eye Exam Eye Exam: PERRL - ENT Exam ENT Exam: Mucous Membranes Dry, Normal Exam - Neck Exam Neck Exam: Normal Inspection - Respiratory Exam Respiratory Exam: Decreased Breath Sounds (bibasilar), Prolonged Expiratory Phase. absent: Accessory Muscle Use, Wheezes - Cardiovascular Exam Cardiovascular Exam: REGULAR RHYTHM, +S1, +S2. absent: JVD - GI/Abdominal Exam GI & Abdominal Exam: Soft, Normal Bowel Sounds. absent: Distended, Guarding, Tenderness, Rebound - Rectal Exam Rectal Exam: Deferred - Extremities Exam Extremities Exam: Pedal Edema (2 +) - Neurological Exam Additional comments: LETHARGIC. WAKES UP TO VERBAL COMMANDS - Psychiatric Exam Psychiatric exam: Agitated, Anxious, Flat Affect - Skin Skin Exam: Dry, Pallor, Warm Assessment and Plan - Assessment and Plan (Free Text) Assessment: 51 y/o female with COPD , fatty liver, Chronic ETOH abuse ( daily 8 cups of 8 ounce vodka ) , smoker , chronic lower back pain brought to ER for evaluation by EMS for facial and lower extremity swelling , SOB and lower back pain. As per patient she has some baseline SOB with ambulation and has chronic lower back pain . Pt was having some lower back pain for which she took some Motrin and Advil PM. and when she woke up she noticed her face and eyes to be swollen and her lower extremities were swollen as well. She could not get out of bed and was having significant back pain . In the ED , was found to be in respiratory distress,with dyspnea RR 35 O2sat 94 %, slightly hypotensive BP 96/65 tachycardic HR 122. She was given 2 Duonebs in the field, 125 mg IV solumedrol in ER , started on IVF and placed on High Flow O2 ,20 LPM FIO2 60 % Her ABG showed PO2 70 PCO2 35 pH 7.38 . CXR showed bilateral infiltrates worse on the right WBC found to be elevated 16.8 Hgb 10 BUN/Cr 20/1.4 rigoberto 6.6 ASt / ALT 150/26 lactic acid 2.6 ETOH levels 73 Physical exam significant for tremors , increased work of breathing , periorbital, facial and lower extremity edema, her breath smelled of alcohol. She was admitted in ICU for close monitoring and treatment, she improved and was transferred to telemetry but became very agitated , restless , confused , tachypneic and tachycardic and so was transferred back to ICU for close monitoring. She was placed on High Flow Oxygen and started on Presedex drip .At present off presedex drip, very lethargic today with RR 9 and ABG significant for hypercarbia PCO2 64 and Hypoxemia PO2 59. 1. Severe Sepsis Most likely secondary to multifocal pneumonia patient was hypotensive,tachycardic,hypoxemic with WBC 16.8 and CXR showing bilateral infiltrates, lactate 2.6 on admission Sputum cx positive for yeast on High Flow Oxygen due to resp insuff 25 LPM FIO2 60 % WBC trending up today to 18.7 Continue Duonebs, IV vanco , Zosyn, Zithromax and Diflucan ID consulted: Dr Escalera 2.Acute hypoxemic and hypercarbic respiratory failure Most likely secondary to multi lobar Pneumonia and COPD exacerbation . Became more lethargic overnight possibly secondary to Fentanyl patch and librium. Narcan was given ,fentanyl patch removed and Librium dose decreased Off Presedex drip since 02/04 @ 6 AM ABG showing PCO@ 67 PO2 58 HCO3 29 ph 7.3 Changed high flow settings to 25 LPM from 20 LPM repeat CXR today shows vascular congestion Continue close monitoring. patient may need mechanical ventilation will repeat ABG Continue Duonebs ,Solumedrol IV 20 mg Q8 Pul[facility] and ID consulted Continue IV antibiotics, vanco, Zosyn , Diflucan and Zithromax and Duonebs 3. Multifocal Pneumonia ID and pulmonary consulted on Vanco, Zosyn,Zithromax and Diflucan vanco trough 9 Sputum cx growing yeast patient is a long time smoker so will need to follow up resolution of infiltrates to rule out any underlying malignancy 4. Facial and lower extremity edema unclear etiology of facial edema , resolved TSH : normal Given Solumedrol 124, Benadry and Pepcid LE venous doppler negative for DVT Echo showed normal LVF EF 65 -70 % given lasix Edema sec to liver dis ? 5. ETOH abuse / Delirium Tremens patient at present very lethargic was started on Precedx drip in ICU for being agittaed , restless and has been off drip since 6 Am 02/04 Was satrted On Librium yesterday and recreived 25 mg PO . Will decrease Librium dose since patient is very lethargic continue Thiamine, Folic acid and MVI Ativan PRN Seizure precautions/ withdrawal precautions 6. SUNDAR improved no prior records and unknown baseline renal function improved 7.COPD exacerbation-- improved Duonebs , high flow pulmonary consulted counseled on smoking decreased solumedrol 20 mg IV Q8 8. Alcoholic liver Bill 6.6 AST 150 on admission. rigoberto trending down to 2.9, afebrile CT chest showed hepatomegaly , fatty infiltration , some ascitic fluid and umbilical vein recannulization significant for portal hypertension \ US showed: Hepatomegaly with steatosis.Trace perihepatic ascites.Nonspecific gallbladder wall thickening. Gallbladder wall thickening is a nonspecific finding which can be seen with ascites, hepatitis, cholecystitis,CHF or hypoproteinemic states. patient has no abdominal pain , no fever , no signs of cholecystitis Continue monitoring 9. Chronic Lower back pain Ct chest also showed mild chronic compression fracture in mid thoracic spine pain management consulted (waiting on recommendations)patient very lethargic overnight once Fentanyl patch and librium started Narcan given , Librium dose lowered and Fentanyl patch discontinued . Patient continuos to remain lethargic Continue High Flow Via NC Toradol for pain control Unable to stay still for CT lumbar and thoracic spine 02/04 PT eval 10.Anemia unclear etiology Normal Iron and B12 level cont Thiamine 11. Smoker on nicotine patch 12 Thrombocytopenia unclear if sec to meds - Zosyn Held Lovenox f/u HIT 13. DVT prophylaxis GI prophylaxis Lovenox- on hold due to low platelet Pepcid
--- NOTE | 2017-02-05 11:56 | RAD ---
PROCEDURE: CHEST RADIOGRAPH, 1 VIEW HISTORY: pneumonia COMPARISON: Comparison chest dated 02/03/2017. FINDINGS: LUNGS: Poor inspiration with low lung volumes. Interval mildly improved previously noted bilateral opacities which may have represented either pulmonary edema -CHF and/or pneumonia. Small bilateral effusions remain. PLEURA: As above. No apparent CARDIOVASCULAR: Pneumothorax heart remains enlarged and aortic ectatic/uncoiled OSSEOUS STRUCTURES: No significant abnormalities. VISUALIZED UPPER ABDOMEN: Normal. OTHER FINDINGS: None. IMPRESSION: Poor inspiration with low lung volumes. Interval mildly improved previously noted bilateral opacities which may have represented either pulmonary edema -CHF and/or pneumonia. Small bilateral effusions remain.
[2017-02-05] MEDS: Azithromycin 500 MG in Sodium Chloride 0.9% 250 ML IVPB SCH (12:17)
[2017-02-05] MEDS: Enoxaparin 40 mg Syringe SC SCH (12:34)
[2017-02-05 12:37] LABS: ABG ALLEN TEST YES; ARTERIAL BLOOD GAS HCO3 31.1 mmol/L (21-28); ARTERIAL BLOOD GAS O2 CAPACITY 13.6 mL/dL (16-24); ARTERIAL BLOOD GAS O2 CONTENT 13.6 ML/dL (15-23); ARTERIAL BLOOD GAS PH 7.37 (7.35-7.45); ARTERIAL BLOOD GAS PO2 97 mm/Hg (80-100); ARTERIAL BLOOD HGB O2 SAT 95.7 % (95.0-98.0); CARBOXYHEMOGLOBIN 2.7 % (0.5-1.5); HHB 0.2 % (0.0-5.0); METHEMOGLOBIN 1.4 % (0.0-3.0)
[2017-02-06] MEDS: Piperacillin/Tazobact 3.375 GM in Sodium Chloride 0.9% 100 ML IVPB SCH ×3 (00:01→16:50)
[2017-02-06] MEDS: Albuterol-Ipratrop 3 mg / 0.5 (3 ml) UD INH SCH ×7 (00:16→23:36)
[2017-02-06 06:40] LABS: MEAN CELL VOLUME 106.8 fl (81.0-99.0); MEAN CORPUSCULAR HEMOGLOBIN 34.7 pg (27.0-31.0); MEAN CORPUSCULAR HGB CONC 32.5 g/dL (33.0-37.0); RED CELL DISTRIBUTION WIDTH 16.5 % (11.5-14.5)
[2017-02-06 06:55] LABS: ALB/GLOB RATIO 0.8 (1.0-2.1); ALKALINE PHOSPHATASE 105 U/L (38-126); ALT/SGPT 75 U/L (9-52); AST/SGOT 76 U/L (14-36); BILIRUBIN,TOTAL 2.6 mg/dl (0.2-1.3); BLOOD UREA NITROGEN 34 mg/dl (7-17); CALCIUM 9.6 mg/dL (8.4-10.2); CARBON DIOXIDE 38 mmol/L (22-30); CHLORIDE 100 mmol/L (98-107); GFR AFRICAN-AMERICAN > 60; GLUCOSE,RANDOM 137 mg/dL (65-105); POTASSIUM 3.9 MMOL/L (3.6-5.0); SODIUM 145 mmol/l (132-148); TOTAL PROTEIN 7.3 G/DL (6.3-8.2)
--- NOTE | 2017-02-06 08:22 | CP.PCM.PN ---
Subjective - Date & Time of Evaluation Date of Evaluation: 02/06/17 Time of Evaluation: 09:00 - Subjective Subjective: Patient seen and examined bedside. Lying in bed , lethargic but responsive to verbal command, with RR ranging 7-14 , saturating 98 % on high flow O2 via NC 25 LPM FIO2 60 % ABG this Am not done yet with weak cough reflex unable to expectorate With episodes of agitation ands restlessness as per staff BP 105/80 HR 85, afebrile WBC trended down from 18 K- 16 K, hgb 9.7 plt 142 K Objective - Vital Signs/Intake and Output Vital Signs (last 24 hours): Temp Pulse Resp BP Pulse Ox 98.7 F 82 14 159/82 H 100 02/06/17 04:00 02/06/17 06:00 02/06/17 07:38 02/06/17 06:00 02/06/17 06:00 Intake and Output: 02/06/17 02/06/17 06:59 18:59 Intake Total 100 50 Balance 100 50 - Medications Medications: Current Medications Acetaminophen (Tylenol 325mg Tab) 650 mg PO Q6H PRN PRN Reason: Pain, Mild (1-3) Acetaminophen (Tylenol 325mg Tab) 650 mg PO Q6H PRN PRN Reason: Fever >100.4 F Albuterol/Ipratropium (Duoneb 3 Mg/0.5 Mg (3 Ml) Ud) 3 ml INH RQ4 [facility] Last Admin: 02/06/17 07:38 Dose: 3 ml Chlordiazepoxide (Librium) 25 mg PO Q8 [facility] Last Admin: 02/06/17 00:01 Dose: Not Given Docusate Sodium (Colace) 100 mg PO BID PRN PRN Reason: Constipation Last Admin: 02/05/17 08:56 Dose: 100 mg Enoxaparin Sodium (Lovenox) 40 mg SC DAILY [facility] PRN Reason: Protocol Last Admin: 02/05/17 12:34 Dose: 40 mg Folic Acid (Folic Acid) 1 mg PO DAILY [facility] Last Admin: 02/05/17 09:12 Dose: 1 mg Guaifenesin (Mucinex La) 600 mg PO Q12 [facility] Last Admin: 02/04/17 22:16 Dose: Not Given Fluconazole (Diflucan Iv 100 Mg/50 Ml Ns) 50 mls @ 50 mls/hr IVPB DAILY [facility] PRN Reason: Protocol Last Admin: 02/05/17 08:57 Dose: 50 mls/hr Piperacillin Sod/Tazobactam (Sod 3.375 gm/ Sodium Chloride) 100 mls @ 100 mls/ hr IVPB Q8 [facility] PRN Reason: Protocol Last Admin: 02/06/17 00:01 Dose: 100 mls/hr Azithromycin 500 mg/ Dextrose 250 mls @ 250 mls/hr IVPB DAILY [facility] PRN Reason: Protocol Vancomycin HCl 1 gm/ Dextrose 250 mls @ 166.667 mls/hr IVPB DAILY [facility] PRN Reason: Protocol Ketorolac Tromethamine (Toradol) 15 mg IVP Q6 PRN PRN Reason: Pain, moderate (4-7) Last Admin: 02/04/17 22:45 Dose: 15 mg Lorazepam (Ativan) 1 mg PO TID PRN PRN Reason: Agitation Methylprednisolone (Solu-Medrol) 20 mg IVP Q8H [facility] Last Admin: 02/05/17 23:56 Dose: 20 mg Morphine Sulfate (Morphine) 2 mg IVP Q4 PRN PRN Reason: Pain, severe (8-10) Last Admin: 02/06/17 05:15 Dose: 2 mg Multivitamins/Minerals (Therapeutic-M Tab) 1 tab PO DAILY [facility] Last Admin: 02/05/17 09:05 Dose: 1 tab Nicotine (Nicoderm Cq) 1 patch TD DAILY [facility] Last Admin: 02/05/17 09:13 Dose: 1 patch Ondansetron HCl (Zofran Inj) 4 mg IVP Q6H PRN PRN Reason: Nausea/Vomiting Fluticasone/Salmeterol (Advair Diskus 250/50) 1 puff IH Q12 [facility] Last Admin: 02/05/17 23:54 Dose: Not Given Thiamine HCl (Vitamin B1 Tab) 100 mg PO DAILY [facility] Last Admin: 02/05/17 09:12 Dose: 100 mg - Labs Labs: 02/06/17 05:40 02/06/17 05:40 PT 16.7 Seconds (9.8-13.1) H 01/30/17 06:30 INR 1.5 (0.9-1.2) H 01/30/17 06:30 APTT 40.3 Seconds (25.6-37.1) H 01/27/17 18:15 - Constitutional Appears: Confused, Chronically Ill, Other (obese, lethargic , agitated, restless ) - Head Exam Head Exam: ATRAUMATIC, NORMAL INSPECTION, NORMOCEPHALIC - Eye Exam Eye Exam: EOMI, PERRL Pupil Exam: NORMAL ACCOMODATION - ENT Exam ENT Exam: Mucous Membranes Moist, Normal Exam - Neck Exam Neck Exam: Full ROM, Normal Inspection - Respiratory Exam Respiratory Exam: Decreased Breath Sounds (bibasilar), Prolonged Expiratory Phase, Rhonchi. absent: Wheezes - Cardiovascular Exam Cardiovascular Exam: REGULAR RHYTHM, +S1, +S2. absent: JVD - GI/Abdominal Exam GI & Abdominal Exam: Soft, Normal Bowel Sounds. absent: Distended, Guarding, Tenderness, Rebound - Rectal Exam Rectal Exam: Deferred - Extremities Exam Extremities Exam: Pedal Edema (2 +). absent: Calf Tenderness - Neurological Exam Neurological Exam: Alert, CN II-XII Intact Additional comments: lethargic , responds to verbal stimuli and follows commands restless - Psychiatric Exam Psychiatric exam: Agitated, Anxious, Flat Affect - Skin Skin Exam: Dry, Pallor, Warm Assessment and Plan - Assessment and Plan (Free Text) Assessment: 51 y/o female with COPD , fatty liver, Chronic ETOH abuse ( daily 8 cups of 8 ounce vodka ) , smoker , chronic lower back pain brought to ER for evaluation by EMS for facial and lower extremity swelling , SOB and lower back pain. As per patient she has some baseline SOB with ambulation and has chronic lower back pain . Pt was having some lower back pain for which she took some Motrin and Advil PM. and when she woke up she noticed her face and eyes to be swollen and her lower extremities were swollen as well. She could not get out of bed and was having significant back pain . In the ED , was found to be in respiratory distress,with dyspnea RR 35 O2sat 94 %, slightly hypotensive BP 96/65 tachycardic HR 122. She was given 2 Duonebs in the field, 125 mg IV solumedrol in ER , started on IVF and placed on High Flow O2 ,20 LPM FIO2 60 % Her ABG showed PO2 70 PCO2 35 pH 7.38 . CXR showed bilateral infiltrates worse on the right WBC found to be elevated 16.8 Hgb 10 BUN/Cr 20/1.4 rigoberto 6.6 ASt / ALT 150/26 lactic acid 2.6 ETOH levels 73 Physical exam significant for tremors , increased work of breathing , periorbital, facial and lower extremity edema, her breath smelled of alcohol. She was admitted in ICU for close monitoring and treatment, she improved and was transferred to telemetry but became very agitated , restless , confused , tachypneic and tachycardic and so was transferred back to ICU for close monitoring. She was placed on High Flow Oxygen and started on Presedex drip .At present off presedex drip,with episodes of lethargy and RR 7 -9 1. Severe Sepsis Most likely secondary to multifocal pneumonia patient was hypotensive,tachycardic,hypoxemic with WBC 16.8 and CXR showing bilateral infiltrates, lactate 2.6 on admission Sputum cx positive for yeast on High Flow Oxygen due to resp insufficiency 25 LPM FIO2 60 % WBC trending down from 18 K -- 16 K Continue Duonebs, IV vanco , Zosyn, Zithromax and Diflucan ID consulted: Dr Escalera 2.Acute hypoxemic and hypercarbic respiratory failure Most likely secondary to multi lobar Pneumonia and COPD exacerbation . Became more lethargic overnight possibly secondary to Fentanyl patch and librium with RR 7-9 . Narcan was given ,fentanyl patch removed and Librium dose decreased Off Presedex drip since 02/04 @ 6 AM ABG yesterday showed PCO2 67 PO2 58 HCO3 29 ph 7.3. ABG today still pending Changed high flow settings to 25 LPM from 20 LPM on FIO2 60 % repeat CXR showed vascular congestion . Lasix was given Continue close monitoring. Patient may need mechanical ventilation if there is worsening respiratory depression will repeat ABG today Continue Duonebs ,Solumedrol IV 20 mg Q8 Pulmonary and ID consulted Continue IV antibiotics, vanco, Zosyn , Diflucan and Zithromax and Duonebs 3. Multifocal Pneumonia ID and pulmonary consulted on Vanco, Zosyn,Zithromax and Diflucan vanco trough 9 Sputum cx growing yeast CXR showed improved infiltrates patient is a long time smoker so will need to follow up resolution of infiltrates to rule out any underlying malignancy 4. Facial and lower extremity edema unclear etiology of facial edema , resolved TSH : normal Given Solumedrol 124, Benadry and Pepcid LE venous doppler negative for DVT Echo showed normal LVF EF 65 -70 % given lasix Edema sec to liver dis ? 5. ETOH abuse / Delirium Tremens patient at present very lethargic was started on Precedx drip in ICU for being agittaed , restless and has been off drip since 6 Am 02/04 Was satrted On Librium yesterday and recreived 25 mg PO . Will decrease Librium dose since patient is very lethargic continue Thiamine, Folic acid and MVI Ativan PRN Seizure precautions/ withdrawal precautions 6. SUNDAR improved no prior records and unknown baseline renal function improved 7.COPD exacerbation-- improved Duonebs , high flow pulmonary consulted counseled on smoking decreased solumedrol 20 mg IV Q8 8. Alcoholic liver Bill 6.6 AST 150 on admission. rigoberto trending down to 2.9, afebrile CT chest showed hepatomegaly , fatty infiltration , some ascitic fluid and umbilical vein recannulization significant for portal hypertension \ US showed: Hepatomegaly with steatosis.Trace perihepatic ascites.Nonspecific gallbladder wall thickening. Gallbladder wall thickening is a nonspecific finding which can be seen with ascites, hepatitis, cholecystitis,CHF or hypoproteinemic states. patient has no abdominal pain , no fever , no signs of cholecystitis Continue monitoring 9. Chronic Lower back pain Ct chest also showed mild chronic compression fracture in mid thoracic spine pain management consulted (waiting on recommendations)patient very lethargic overnight once Fentanyl patch and librium started Narcan given , Librium dose lowered and Fentanyl patch discontinued . Patient continuos to remain lethargic Continue High Flow Via NC Toradol for pain control Unable to stay still for CT lumbar and thoracic spine 02/04 PT eval 10.Anemia unclear etiology Normal Iron and B12 level cont Thiamine 11. Smoker on nicotine patch 12 Thrombocytopenia unclear if sec to meds - Zosyn Held Lovenox f/u HIT 13. DVT prophylaxis GI prophylaxis Lovenox was held due to low platelet count Pepcid
[2017-02-06] MEDS: Fluconazole IV 100mg/50 ml NS 50 ML IVPB SCH (08:28)
[2017-02-06] MEDS: MethylPREDNISolone 40 mg Vial IVP SCH ×2 (08:29→15:37)
[2017-02-06] MEDS: Enoxaparin 40 mg Syringe SC SCH (08:30)
[2017-02-06] MEDS: Multivitamin With Minerals Tab PO SCH (08:30)
[2017-02-06] MEDS: Vancomycin 1 GM in Dextrose 5% In Water 250 ML IVPB SCH (08:34)
[2017-02-06] MEDS: Fluticasone-Salmeterol 250-50mcg Diskus IH SCH ×3 (10:36→22:02)
--- NOTE | 2017-02-06 12:11 | CP.PCM.PN ---
Subjective - Date & Time of Evaluation Date of Evaluation: 02/06/17 Time of Evaluation: 09:00 - Subjective Subjective: afebrile less confused and less agitated follows simple commands no fever Objective - Vital Signs/Intake and Output Vital Signs (last 24 hours): Temp Pulse Resp BP Pulse Ox 97.5 F L 87 16 105/80 100 02/06/17 08:00 02/06/17 08:00 02/06/17 11:21 02/06/17 08:00 02/06/17 08:00 Intake and Output: 02/06/17 02/06/17 06:59 18:59 Intake Total 100 50 Balance 100 50 - Medications Medications: Current Medications Acetaminophen (Tylenol 325mg Tab) 650 mg PO Q6H PRN PRN Reason: Pain, Mild (1-3) Acetaminophen (Tylenol 325mg Tab) 650 mg PO Q6H PRN PRN Reason: Fever >100.4 F Albuterol/Ipratropium (Duoneb 3 Mg/0.5 Mg (3 Ml) Ud) 3 ml INH RQ4 [facility] Last Admin: 02/06/17 11:21 Dose: 3 ml Chlordiazepoxide (Librium) 25 mg PO Q8 [facility] Last Admin: 02/06/17 10:36 Dose: 25 mg Docusate Sodium (Colace) 100 mg PO BID PRN PRN Reason: Constipation Last Admin: 02/05/17 08:56 Dose: 100 mg Enoxaparin Sodium (Lovenox) 40 mg SC DAILY [facility] PRN Reason: Protocol Last Admin: 02/06/17 08:30 Dose: 40 mg Folic Acid (Folic Acid) 1 mg PO DAILY [facility] Last Admin: 02/06/17 08:29 Dose: 1 mg Guaifenesin (Mucinex La) 600 mg PO Q12 [facility] Last Admin: 02/04/17 22:16 Dose: Not Given Fluconazole (Diflucan Iv 100 Mg/50 Ml Ns) 50 mls @ 50 mls/hr IVPB DAILY [facility] PRN Reason: Protocol Last Admin: 02/06/17 08:28 Dose: 50 mls/hr Piperacillin Sod/Tazobactam (Sod 3.375 gm/ Sodium Chloride) 100 mls @ 100 mls/ hr IVPB Q8 [facility] PRN Reason: Protocol Last Admin: 02/06/17 08:34 Dose: 100 mls/hr Azithromycin 500 mg/ Dextrose 250 mls @ 250 mls/hr IVPB DAILY [facility] PRN Reason: Protocol Last Admin: 02/06/17 08:33 Dose: 250 mls/hr Vancomycin HCl 1 gm/ Dextrose 250 mls @ 166.667 mls/hr IVPB DAILY [facility] PRN Reason: Protocol Last Admin: 02/06/17 08:34 Dose: 166.667 mls/hr Ketorolac Tromethamine (Toradol) 15 mg IVP Q6 PRN PRN Reason: Pain, moderate (4-7) Last Admin: 02/04/17 22:45 Dose: 15 mg Lorazepam (Ativan) 1 mg PO TID PRN PRN Reason: Agitation Methylprednisolone (Solu-Medrol) 20 mg IVP Q8H [facility] Last Admin: 02/06/17 08:29 Dose: 20 mg Morphine Sulfate (Morphine) 2 mg IVP Q4 PRN PRN Reason: Pain, severe (8-10) Last Admin: 02/06/17 11:31 Dose: 2 mg Multivitamins/Minerals (Therapeutic-M Tab) 1 tab PO DAILY [facility] Last Admin: 02/06/17 08:30 Dose: 1 tab Nicotine (Nicoderm Cq) 1 patch TD DAILY [facility] Last Admin: 02/06/17 08:29 Dose: 1 patch Ondansetron HCl (Zofran Inj) 4 mg IVP Q6H PRN PRN Reason: Nausea/Vomiting Fluticasone/Salmeterol (Advair Diskus 250/50) 1 puff IH Q12 [facility] Last Admin: 02/06/17 10:36 Dose: 1 puff Thiamine HCl (Vitamin B1 Tab) 100 mg PO DAILY [facility] Last Admin: 02/06/17 08:30 Dose: 100 mg - Labs Labs: 02/06/17 05:40 02/06/17 05:40 PT 16.7 Seconds (9.8-13.1) H 01/30/17 06:30 INR 1.5 (0.9-1.2) H 01/30/17 06:30 APTT 40.3 Seconds (25.6-37.1) H 01/27/17 18:15 - Constitutional Appears: Non-toxic, Confused, Chronically Ill - Head Exam Head Exam: NORMOCEPHALIC - Eye Exam Eye Exam: PERRL. absent: Scleral icterus - ENT Exam ENT Exam: Mucous Membranes Dry - Neck Exam Neck Exam: absent: Lymphadenopathy - Respiratory Exam Respiratory Exam: Decreased Breath Sounds, Rhonchi - Cardiovascular Exam Cardiovascular Exam: REGULAR RHYTHM, +S1, +S2 - GI/Abdominal Exam GI & Abdominal Exam: Distended, Soft - Rectal Exam Rectal Exam: Deferred - Extremities Exam Extremities Exam: absent: Pedal Edema - Back Exam Back Exam: absent: CVA tenderness (L), CVA tenderness (R) - Neurological Exam Neurological Exam: Alert, Altered, CN II-XII Intact Assessment and Plan (1) Bilateral pneumonia Status: Acute (2) COPD exacerbation Status: Acute (3) Respiratory distress Status: Acute (4) Severe sepsis Status: Acute (5) Alcohol abuse Status: Acute - Assessment and Plan (Free Text) Assessment: cont iv rx for pneumonia/ sepsis
[2017-02-06 12:22] LABS: ABG ALLEN TEST YES; ARTERIAL BLOOD FLOW 25; ARTERIAL BLOOD GAS HCO3 35.2 mmol/L (21-28); ARTERIAL BLOOD GAS MODE HFNC; ARTERIAL BLOOD GAS O2 CAPACITY 13.2 mL/dL (16-24); ARTERIAL BLOOD GAS O2 CONTENT 13.1 ML/dL (15-23); ARTERIAL BLOOD GAS PH 7.47 (7.35-7.45); ARTERIAL BLOOD GAS PO2 75 mm/Hg (80-100); ARTERIAL BLOOD HGB O2 SAT 95.6 % (95.0-98.0); CARBOXYHEMOGLOBIN 2.6 % (0.5-1.5); HHB 0.4 % (0.0-5.0); METHEMOGLOBIN 1.4 % (0.0-3.0)
[2017-02-07] MEDS: MethylPREDNISolone 40 mg Vial IVP SCH ×3 (00:34→16:34)
[2017-02-07] MEDS: Piperacillin/Tazobact 3.375 GM in Sodium Chloride 0.9% 100 ML IVPB SCH ×3 (00:35→16:36)
[2017-02-07] MEDS: Albuterol-Ipratrop 3 mg / 0.5 (3 ml) UD INH SCH ×6 (03:53→23:38)
[2017-02-07 05:40] LABS: MEAN CORPUSCULAR HEMOGLOBIN 34.7 pg (27.0-31.0); MEAN CORPUSCULAR HGB CONC 32.4 g/dL (33.0-37.0); RED CELL DISTRIBUTION WIDTH 16.7 % (11.5-14.5); WHITE BLOOD COUNT 17.1 K/uL (4.8-10.8)
[2017-02-07 05:48] LABS: ALB/GLOB RATIO 0.8 (1.0-2.1); ALKALINE PHOSPHATASE 105 U/L (38-126); ALT/SGPT 75 U/L (9-52); AST/SGOT 65 U/L (14-36); BILIRUBIN,TOTAL 2.4 mg/dl (0.2-1.3); BLOOD UREA NITROGEN 30 mg/dl (7-17); CALCIUM 9.3 mg/dL (8.4-10.2); CARBON DIOXIDE 40 mmol/L (22-30); CHLORIDE 97 mmol/L (98-107); GFR AFRICAN-AMERICAN > 60; GLUCOSE,RANDOM 126 mg/dL (65-105); POTASSIUM 3.9 MMOL/L (3.6-5.0); SODIUM 142 mmol/l (132-148); TOTAL PROTEIN 6.8 G/DL (6.3-8.2)
[2017-02-07 05:58] LABS: MEAN CELL VOLUME 107.1 fl (81.0-99.0)
[2017-02-07 06:08] LABS: ABG ALLEN TEST YES; ARTERIAL BLOOD GAS HCO3 36.1 mmol/L (21-28); ARTERIAL BLOOD GAS O2 CAPACITY 13.6 mL/dL (16-24); ARTERIAL BLOOD GAS O2 CONTENT 11.5 ML/dL (15-23); ARTERIAL BLOOD GAS PH 7.48 (7.35-7.45); ARTERIAL BLOOD GAS PO2 40 mm/Hg (80-100); CARBOXYHEMOGLOBIN 2.5 % (0.5-1.5); HHB 14.7 % (0.0-5.0); METHEMOGLOBIN 1.8 % (0.0-3.0)
[2017-02-07 07:45] LABS: ABG ALLEN TEST YES; ARTERIAL BLOOD FLOW 25; ARTERIAL BLOOD GAS HCO3 36.7 mmol/L (21-28); ARTERIAL BLOOD GAS MODE HFOV; ARTERIAL BLOOD GAS O2 CAPACITY 12.9 mL/dL (16-24); ARTERIAL BLOOD GAS O2 CONTENT 12.9 ML/dL (15-23); ARTERIAL BLOOD GAS PH 7.44 (7.35-7.45); ARTERIAL BLOOD GAS PO2 102 mm/Hg (80-100); CARBOXYHEMOGLOBIN 2.4 % (0.5-1.5); HHB 0.1 % (0.0-5.0); METHEMOGLOBIN 1.6 % (0.0-3.0)
[2017-02-07] MEDS: Multivitamin With Minerals Tab PO SCH (08:31)
[2017-02-07] MEDS: Fluticasone-Salmeterol 250-50mcg Diskus IH SCH ×2 (08:31→20:43)
[2017-02-07] MEDS: Fluconazole IV 100mg/50 ml NS 50 ML IVPB SCH (08:33)
[2017-02-07] MEDS: Enoxaparin 40 mg Syringe SC SCH (08:33)
--- NOTE | 2017-02-07 08:33 | PN ---
DATE: 02/06/2017 CRITICAL CARE PROGRESS NOTE: LOCATION: Patient in ICU bed 424. TIME SPENT: 35 minutes. Patient is seen and evaluated at the bedside. Remains lethargic, but responsive to verbal commands, on high-flow nasal oxygen 25 liters, FIO2 of 60%, saturating 98%. Noted overnight episodes of agitation and restlessness. Patient has been on Precedex, now off Precedex. PHYSICAL EXAMINATION: VITAL SIGNS: Temperature 96.5, heart rate 86 regular, blood pressure 141/76, respiratory rate of 13, saturation 99% on high-flow 20 with FIO2 60%. Intake 620, output not documented. Weight 228 pounds. HEAD, EYES, EARS, NOSE AND THROAT: Atraumatic, normocephalic. Extraocular muscles intact. Conjunctivae pink. Oral mucosa moist. NECK: Supple. CHEST: Bilateral breath sounds diminished intensity. Expiration prolonged. Scattered rhonchi. HEART: Rhythm regular. S1, S2 normal. No audible murmur. ABDOMEN: Bowel sounds present. Soft. EXTREMITIES: 2+ edema. NEUROLOGIC EXAMINATION: Cranial nerves intact. Remains lethargic, response to verbal stimuli. Follows commands. SKIN: Without rash. CURRENT MEDICATIONS: Tylenol 650 q. 6 p.r.n., albuterol/Atrovent inhalation q. 4, Librium 25 mg q. 8, Colace 100 mg twice daily p.r.n., Lovenox 40 subcu daily, fluconazole 100 mg IV daily, folic acid 1 mg daily, guaifenesin 600 mg q.12h., Toradol 15 mg IV q. 6 p.r.n., Ativan 1 mg p.o. t.i.d. p.r.n., morphine 2 mg IV q. 4 p.r.n., nicotine patch CQ daily, Zofran 4 mg IV q. 6 p.r.n., Zosyn 3.375 g IV q. 8, Advair disc 1 puff twice daily, vitamin B1 100 mg daily, vancomycin 1 g IV daily. LABORATORY DATA: WBC 16, hemoglobin 9.7, hematocrit 30, platelet count 148. PT 16.7, INR 1.5. ABG pH 7.47, pCO2 of 53, pO2 of 75, saturation 99.6 on high-flow oxygen 60 liters. SMA-7 sodium 145, potassium 3.9, chloride 100, CO2 of 38, blood urea nitrogen 34, creatinine 0.8, random glucose 146, lactic acid 1.1, calcium 9.6, total bilirubin 2.6, AST 76, ALT 75, total protein 7.3, albumin 3.3. Vancomycin trough level 8.9. Heparin-induced platelet antibody negative. Serology mycoplasma pneumonia IgG 3.48, IgM 33. IMPRESSION: 1. Acute hypoxic hypercapnic respiratory failure secondary to multilobar pneumonia/ chronic obstructive pulmonary disease exacerbation. Patient continues to have reduce respiratory tract due to narcotics/sedation. The fentanyl patch and Librium reduced, off Precedex drip since 02/04, acceptable ABG with adequate oxygenation though CO2 retention noted. 2. Sepsis secondary to pneumonia, currently on intravenous vancomycin, Zosyn, Zithromax and Diflucan. Appreciate Infectious Disease consult. 3. Dependent edema likely right ventricular failure. Echo shows normal left ventricular function on Lasix. 4. History of EtOH abuse and DT, has been on Precedex, off Precedex now, on Librium 25 mg q. 8. Remains lethargic. Closely monitor respiratory status. Continue thiamine, folic acid, multivitamin, Ativan p.r.n. seizure precautions and withdrawal precautions. 5. Alcohol related liver disease with elevated bilirubin, AST. Bilirubin trending down. Ultrasound showed hepatomegaly with steatosis and perihepatic ascites. 6. Chronic backache. CT chest with mild chronic compression fracture in mid thoracic spine. Pain management consulted, waiting to be evaluated. 7. Anemia from chronic disease, iron and B12 level normal, on thiamine. 8. Thrombocytopenia related to chronic liver disease, heparin-induced thrombocytopenia likely given negative antiplatelet antibody however, on consent Lovenox on hold. Continue gastrointestinal prophylaxis and deep vein prophylaxis with a sequential compression device on both. Cy Moss MD
[2017-02-07] MEDS: Vancomycin 1 GM in Dextrose 5% In Water 250 ML IVPB SCH (08:41)
--- NOTE | 2017-02-07 11:38 | CP.PCM.PN ---
Subjective - Date & Time of Evaluation Date of Evaluation: 02/07/17 Time of Evaluation: 11:30 - Subjective Subjective: Pt is awake on Hi Flow Oxygen She responds to question appropiately but is very irritable complains of generalized pain she is able to supply name of her PMD who she states is in [place] Attempted to get in touch with his PMD - Dr Sidney Suarez however his staff said , he is on vacation and will not be back until Feb 21 also complains of sl nausea so does not want to eat , no abd pain Denies CP Objective - Vital Signs/Intake and Output Vital Signs (last 24 hours): Temp Pulse Resp BP Pulse Ox 97.7 F 94 H 11 L 101/79 93 L 02/07/17 08:00 02/07/17 10:00 02/07/17 10:00 02/07/17 10:00 02/07/17 10:00 Intake and Output: 02/07/17 02/07/17 06:59 18:59 Intake Total 150 740 Balance 150 740 - Medications Medications: Current Medications Acetaminophen (Tylenol 325mg Tab) 650 mg PO Q6H PRN PRN Reason: Pain, Mild (1-3) Acetaminophen (Tylenol 325mg Tab) 650 mg PO Q6H PRN PRN Reason: Fever >100.4 F Albuterol/Ipratropium (Duoneb 3 Mg/0.5 Mg (3 Ml) Ud) 3 ml INH RQ4 [facility] Last Admin: 02/07/17 08:27 Dose: 3 ml Chlordiazepoxide (Librium) 25 mg PO Q8 [facility] Last Admin: 02/07/17 08:37 Dose: 25 mg Docusate Sodium (Colace) 100 mg PO BID PRN PRN Reason: Constipation Last Admin: 02/05/17 08:56 Dose: 100 mg Enoxaparin Sodium (Lovenox) 40 mg SC DAILY [facility] PRN Reason: Protocol Last Admin: 02/07/17 08:33 Dose: 40 mg Folic Acid (Folic Acid) 1 mg PO DAILY [facility] Last Admin: 02/07/17 08:33 Dose: 1 mg Guaifenesin (Mucinex La) 600 mg PO Q12 [facility] Last Admin: 02/04/17 22:16 Dose: Not Given Fluconazole (Diflucan Iv 100 Mg/50 Ml Ns) 50 mls @ 50 mls/hr IVPB DAILY [facility] PRN Reason: Protocol Last Admin: 02/07/17 08:33 Dose: 50 mls/hr Piperacillin Sod/Tazobactam (Sod 3.375 gm/ Sodium Chloride) 100 mls @ 100 mls/ hr IVPB Q8 [facility] PRN Reason: Protocol Last Admin: 02/07/17 08:40 Dose: 100 mls/hr Vancomycin HCl 1 gm/ Dextrose 250 mls @ 166.667 mls/hr IVPB DAILY [facility] PRN Reason: Protocol Last Admin: 02/07/17 08:41 Dose: 166.667 mls/hr Ketorolac Tromethamine (Toradol) 15 mg IVP Q6 PRN PRN Reason: Pain, moderate (4-7) Last Admin: 02/04/17 22:45 Dose: 15 mg Lorazepam (Ativan) 1 mg PO TID PRN PRN Reason: Agitation Methylprednisolone (Solu-Medrol) 20 mg IVP Q8H [facility] Last Admin: 02/07/17 08:32 Dose: 20 mg Morphine Sulfate (Morphine) 2 mg IVP Q4 PRN PRN Reason: Pain, severe (8-10) Last Admin: 02/07/17 10:06 Dose: 2 mg Multivitamins/Minerals (Therapeutic-M Tab) 1 tab PO DAILY [facility] Last Admin: 02/07/17 08:31 Dose: 1 tab Nicotine (Nicoderm Cq) 1 patch TD DAILY [facility] Last Admin: 02/07/17 08:31 Dose: 1 patch Ondansetron HCl (Zofran Inj) 4 mg IVP Q6H PRN PRN Reason: Nausea/Vomiting Fluticasone/Salmeterol (Advair Diskus 250/50) 1 puff IH Q12 [facility] Last Admin: 02/07/17 08:31 Dose: 1 puff Thiamine HCl (Vitamin B1 Tab) 100 mg PO DAILY [facility] Last Admin: 02/07/17 08:33 Dose: 100 mg - Labs Labs: 02/07/17 04:20 02/07/17 04:20 PT 16.7 Seconds (9.8-13.1) H 01/30/17 06:30 INR 1.5 (0.9-1.2) H 01/30/17 06:30 APTT 40.3 Seconds (25.6-37.1) H 01/27/17 18:15 - Constitutional Appears: Unkempt, Agitated, Chronically Ill - Head Exam Head Exam: NORMOCEPHALIC - Eye Exam Eye Exam: EOMI Pupil Exam: NORMAL ACCOMODATION - ENT Exam ENT Exam: Mucous Membranes Dry, Normal External Ear Exam - Neck Exam Neck Exam: Full ROM. absent: Meningismus - Respiratory Exam Respiratory Exam: Rales, Rhonchi, Wheezes - Cardiovascular Exam Cardiovascular Exam: REGULAR RHYTHM, +S1, +S2 - GI/Abdominal Exam GI & Abdominal Exam: Soft, Normal Bowel Sounds. absent: Tenderness - Extremities Exam Extremities Exam: Normal Capillary Refill, Pedal Edema. absent: Calf Tenderness - Back Exam Back Exam: absent: CVA tenderness (L), CVA tenderness (R) - Neurological Exam Neurological Exam: Awake Additional comments: oriented to person and place moves all extremities uncooperative answers some questions appropiately - Psychiatric Exam Psychiatric exam: Agitated - Skin Skin Exam: Dry, Normal Color, Warm Assessment and Plan - Assessment and Plan (Free Text) Assessment: 51 y/o female with COPD , fatty liver, Chronic ETOH abuse ( daily 8 cups of 8 ounce vodka ) , smoker , chronic lower back pain brought to ER for evaluation by EMS for facial and lower extremity swelling , SOB and lower back pain. As per patient she has some baseline SOB with ambulation and has chronic lower back pain . Pt was having some lower back pain for which she took some Motrin and Advil PM. and when she woke up she noticed her face and eyes to be swollen and her lower extremities were swollen as well. She could not get out of bed and was having significant back pain . In the ED , was found to be in respiratory distress,with dyspnea RR 35 O2sat 94 %, slightly hypotensive BP 96/65 tachycardic HR 122. She was given 2 Duonebs in the field, 125 mg IV solumedrol in ER , started on IVF and placed on High Flow O2 ,20 LPM FIO2 60 % Her ABG showed PO2 70 PCO2 35 pH 7.38 . CXR showed bilateral infiltrates worse on the right WBC found to be elevated 16.8 Hgb 10 BUN/Cr 20/1.4 rigoberto 6.6 ASt / ALT 150/26 lactic acid 2.6 ETOH levels 73 Physical exam significant for tremors , increased work of breathing , periorbital, facial and lower extremity edema, her breath smelled of alcohol. She was admitted in ICU for close monitoring and treatment, she improved and was transferred to telemetry but became very agitated , restless , confused , tachypneic and tachycardic and so was transferred back to ICU for close monitoring. She was placed on High Flow Oxygen and started on Precedex drip .At present off Precedex drip, and has episodes of agitation and occ lethargy 1. Severe Sepsis Most likely secondary to multifocal pneumonia patient was hypotensive,tachycardic,hypoxemic with WBC 16.8 and CXR showing bilateral infiltrates, lactate 2.6 on admission Sputum cx positive for yeast on High Flow Oxygen due to resp insufficiency 25 LPM FIO2 60 % WBC trending down from 18 K -- 16 K Continue Duonebs, IV vanco , Zosyn, Zithromax and Diflucan ID consulted: Dr Escalera 2.Acute hypoxemic and hypercarbic respiratory failure Most likely secondary to multi lobar Pneumonia and COPD exacerbation . Became more lethargic possibly secondary to Fentanyl patch and librium with RR 7-9 . Narcan was given ,fentanyl patch removed and Librium dose decreased Off PreCedex drip since 02/04 @ 6 AM Changed high flow settings to 25 LPM from 20 LPM on FIO2 60 % repeat CXR showed vascular congestion . Lasix was given Continue close monitoring. Patient may need mechanical ventilation if there is worsening respiratory depression Continue Duonebs ,Solumedrol IV 20 mg Q8 Pulmonary and ID consulted Continue IV antibiotics, vanco, Zosyn , Diflucan and Zithromax and Duonebs 3. Multifocal Pneumonia ID and pulmonary consulted on Vanco, Zosyn,Zithromax and Diflucan vanco trough 9 Sputum cx growing yeast CXR showed improved infiltrates patient is a long time smoker so will need to follow up resolution of infiltrates to rule out any underlying malignancy 4. Facial and lower extremity edema unclear etiology of facial edema , resolved TSH : normal Given Solumedrol 125mg , Benadry and Pepcid LE venous doppler negative for DVT Echo showed normal LVF EF 65 -70 % given lasix Edema sec to liver dis ? 5. ETOH abuse / Delirium Tremens was started on Precedex drip in ICU for being agitated , restless and has been off drip since 6 Am 02/04 On Librium continue Thiamine, Folic acid and MVI Ativan PRN Seizure precautions/ withdrawal precautions 6. SUNDAR improved no prior records and unknown baseline renal function improved 7.COPD exacerbation-- improved Duonebs , high flow pulmonary consulted counseled on smoking decreased solumedrol 20 mg IV Q8 8. Alcohol Liver Dis Bill 6.6 AST 150 on admission. rigoberto trending down to 2.9, afebrile CT chest showed hepatomegaly , fatty infiltration , some ascitic fluid and umbilical vein recannulization significant for portal hypertension \ US showed: Hepatomegaly with steatosis.Trace perihepatic ascites.Nonspecific gallbladder wall thickening. Gallbladder wall thickening is a nonspecific finding which can be seen with ascites, hepatitis, cholecystitis,CHF or hypoproteinemic states. patient has no abdominal pain , no fever , no signs of cholecystitis Continue monitoring 9. Chronic Lower back pain Ct chest also showed mild chronic compression fracture in mid thoracic spine pain management consulted (waiting on recommendations)patient very lethargic overnight once Fentanyl patch and librium started Narcan given , Librium dose lowered and Fentanyl patch discontinued . Continue High Flow Via NC Toradol for pain control Unable to stay still for CT lumbar and thoracic spine 02/04 PT eval 10.Anemia unclear etiology Normal Iron and B12 level cont Thiamine 11. Smoker on nicotine patch 12 Thrombocytopenia, resolved unclear if sec to alcohol vs meds - Zosyn HIT : negative restart Lovenox now that platelet is normal and HIT negative 13. DVT prophylaxis GI prophylaxis Lovenox Pepcid
--- NOTE | 2017-02-07 11:54 | RAD ---
PROCEDURE: CHEST RADIOGRAPH, 1 VIEW HISTORY: pneumonia COMPARISON: 02/05/2017. FINDINGS: LUNGS: Improved aeration of the lungs. PLEURA: No pneumothorax or pleural fluid seen. CARDIOVASCULAR: Cardiomegaly. No evidence of acute, significant cardiovascular disease. OSSEOUS STRUCTURES: No significant abnormalities. VISUALIZED UPPER ABDOMEN: Normal. OTHER FINDINGS: None. IMPRESSION: No active pulmonary disease. No acute/significant interval changes.
[2017-02-07] MEDS ORDERED: Oxycodone/Acetaminophen 5/325 mg Tab PO PRN (12:08)
[2017-02-08] MEDS: MethylPREDNISolone 40 mg Vial IVP SCH
--- NOTE | 2017-02-08 01:34 | PN ---
DATE: 02/07/2017 CRITICAL CARE PROGRESS NOTE: LOCATION: Patient in ICU bed 424. TIME SPENT: 35 minutes. SUBJECTIVE: The patient is seen and evaluated at the bedside. Case discussed with primary attending. The patient remains lethargic, responsive to verbal commands. On high-flow nasal oxygen 25 L, FiO2 of 60%, saturating over 94%. Remains agitated and restless at times, controlled with analgesics. No respiratory distress noted. PHYSICAL EXAMINATION: VITAL SIGNS: Temperature 98.6, heart rate 92, blood pressure 136/92, respiratory rate 11 to 24, oxygen saturation 97% on high-flow 60%, 20 L. Intake 1350, output not documented. Weight 228 pounds. HEAD, EYES, EARS, NOSE AND THROAT: Pupils are 2 to 3 mm reactive. No nystagmus. Conjunctivae suffused. NECK: Supple. CHEST: Bilateral breath sounds. Prolonged expiration. Scattered rhonchi. HEART: Rhythm regular. S1, S2 normal. No audible murmur. ABDOMEN: Bowel sounds are present. Soft. No tenderness. EXTREMITIES: 2+ edema. NEUROLOGIC: Cranial nerves intact. Remains lethargic. Able to follow commands; at times agitated and combative. SKIN: Without rash. CURRENT MEDICATIONS: Include Tylenol 650 q.6h. p.r.n. for temperature and pain, DuoNeb 3 mL via nebulizer q.4h., Librium 25 mg p.o. q.8h., Colace 100 mg p.o. b.i.d. p.r.n., Lovenox 40 mg subcu daily, Diflucan 100 mg IV push daily, folic acid 1 mg daily, Mucinex 600 mg p.o. q.12h., Toradol 15 mg IV q.6h. p.r.n., lorazepam 1 mg p.o. t.i.d. p.r.n., Solu-Medrol 20 mg IV q.8h., morphine 2 mg IV q.4h. p.r.n., nicotine patch daily, oxycodone with acetaminophen 5/325 mg for moderate pain, Zosyn 3.375 g IV q.8h., vitamin B1 at 100 mg daily, vancomycin 1 g IV push daily. IMPRESSION: 1. Pulmonary: Hypercapnic hypoxic respiratory failure, chronic obstructive pulmonary disease, multilobar pneumonia, improved on repeat chest x-ray except positive atelectasis left, reduced ventilatory effort due to narcotics/sedation. Reduced fentanyl patch and Librium, off Precedex drip since 02/04/2017. Repeat ABG shows CO2 retention but hypoxemia corrected. 2. Neurological: 1. History of chronic alcohol dependence and related withdrawal/? organic brain syndrome. 2. Chronic back ache with narcotic dependence, question narcotic withdrawal. 3. Resolving sepsis, septic encephalopathy. 3. Cardiac: No cardiac arrhythmia, normotensive. 4. Gastrointestinal: History of chronic alcohol dependence and alcohol related liver disease, elevated bilirubin and AST and ALT, improved. 5. Renal electrolytes within normal limits. Significant CO2 retention secondary to chronic obstructive pulmonary disease. . 5. Hematology. Leukocytosis with thrombocytopenia secondary to steroids and chronic liver disease. Platelet count stable. Anemia of chronic disease. No active gastrointestinal bleeding noted. 6. Endocrine: Maintain a blood sugar less than 180. 7. Continue gastrointestinal prophylaxis. On antibiotic for suspected pneumonia/chronic obstructive pulmonary disease exacerbation. . Continue high flow nasal oxygen. SCD in place. Nicotine patch. DuoNeb 3 mL q.4h., Librium 25 mg p.o. q.8h., Colace 100 mg b.i.d., Lovenox 40 subcu daily, folic acid 1 mg p.o. daily, reduce Solu-Medrol 20 mg IV q.12h. Pain Management consult to optimize narcotic withdrawal. Consider methadone if available in pharmacy. Cy Moss MD [email or web address]
[2017-02-08] MEDS: Piperacillin/Tazobact 3.375 GM in Sodium Chloride 0.9% 100 ML IVPB SCH ×3 (02:00→16:15)
[2017-02-08] MEDS: Albuterol-Ipratrop 3 mg / 0.5 (3 ml) UD INH SCH ×5 (05:07→19:41)
[2017-02-08 05:31] LABS: BASO # 0.1 K/uL (0.0-0.2); BASO % 0.3 % (0.0-2.0); EOS % 0.1 % (0.0-4.0); HEMATOCRIT 27.1 % (34.0-47.0); LYMPH % 5.2 % (20.0-40.0); MEAN CORPUSCULAR HEMOGLOBIN 34.6 pg (27.0-31.0); MEAN CORPUSCULAR HGB CONC 32.3 g/dL (33.0-37.0); MEAN PLATELET VOLUME 8.7 fl (7.2-11.7); MONO # 0.9 K/uL (0.0-0.8); MONO % 4.7 % (0.0-10.0); NEUT # 17.3 K/uL (1.8-7.0); NEUT % 89.7 % (50.0-75.0); NRBC % 0.1 % (0.0-0.0); PLATELET COUNT 120 K/uL (130-400); RED CELL DISTRIBUTION WIDTH 16.5 % (11.5-14.5); WHITE BLOOD COUNT 19.2 K/uL (4.8-10.8)
[2017-02-08 05:35] LABS: ALKALINE PHOSPHATASE 101 U/L (38-126); ALT/SGPT 76 U/L (9-52); AST/SGOT 62 U/L (14-36); BILIRUBIN,TOTAL 2.4 mg/dl (0.2-1.3); BLOOD UREA NITROGEN 29 mg/dl (7-17); CALCIUM 9.2 mg/dL (8.4-10.2); CARBON DIOXIDE 38 mmol/L (22-30); CHLORIDE 98 mmol/L (98-107); GFR AFRICAN-AMERICAN > 60; GLUCOSE,RANDOM 110 mg/dL (65-105); POTASSIUM 3.9 MMOL/L (3.6-5.0); SODIUM 140 mmol/l (132-148); TOTAL PROTEIN 6.4 G/DL (6.3-8.2)
[2017-02-08 05:38] LABS: ALB/GLOB RATIO 0.9 (1.0-2.1)
[2017-02-08] MEDS: Fluticasone-Salmeterol 250-50mcg Diskus IH SCH ×2 (08:46→20:32)
[2017-02-08] MEDS: Multivitamin With Minerals Tab PO SCH (08:46)
[2017-02-08] MEDS: Fluconazole IV 100mg/50 ml NS 50 ML IVPB SCH (08:47)
[2017-02-08] MEDS: Enoxaparin 40 mg Syringe SC SCH (08:47)
[2017-02-08] MEDS ORDERED: MethylPREDNISolone 40 mg Vial IVP SCH (09:00)
--- NOTE | 2017-02-08 11:08 | CP.PCM.PN ---
Subjective - Date & Time of Evaluation Date of Evaluation: 02/08/17 Time of Evaluation: 10:15 - Subjective Subjective: Pt is siited on a chair very irritable complain of low back pain oriented to person and place denies CP no abd pain on High Flow Oxygen Objective - Vital Signs/Intake and Output Vital Signs (last 24 hours): Temp Pulse Resp BP Pulse Ox 97.9 F 91 H 12 132/84 94 L 02/08/17 08:00 02/08/17 08:00 02/08/17 08:00 02/08/17 08:00 02/08/17 08:00 Intake and Output: 02/08/17 02/08/17 06:59 18:59 Intake Total 200 170 Output Total 0 500 Balance 200 -330 - Medications Medications: Current Medications Acetaminophen (Tylenol 325mg Tab) 650 mg PO Q6H PRN PRN Reason: Pain, Mild (1-3) Acetaminophen (Tylenol 325mg Tab) 650 mg PO Q6H PRN PRN Reason: Fever >100.4 F Albuterol/Ipratropium (Duoneb 3 Mg/0.5 Mg (3 Ml) Ud) 3 ml INH RQ4 [facility] Last Admin: 02/08/17 11:05 Dose: 3 ml Chlordiazepoxide (Librium) 25 mg PO Q8 [facility] Last Admin: 02/08/17 08:51 Dose: 25 mg Docusate Sodium (Colace) 100 mg PO BID PRN PRN Reason: Constipation Last Admin: 02/08/17 02:47 Dose: 100 mg Enoxaparin Sodium (Lovenox) 40 mg SC DAILY [facility] PRN Reason: Protocol Last Admin: 02/08/17 08:47 Dose: 40 mg Folic Acid (Folic Acid) 1 mg PO DAILY [facility] Last Admin: 02/08/17 08:47 Dose: 1 mg Fluconazole (Diflucan Iv 100 Mg/50 Ml Ns) 50 mls @ 50 mls/hr IVPB DAILY [facility] PRN Reason: Protocol Last Admin: 02/08/17 08:47 Dose: 50 mls/hr Piperacillin Sod/Tazobactam (Sod 3.375 gm/ Sodium Chloride) 100 mls @ 100 mls/ hr IVPB Q8 [facility] PRN Reason: Protocol Last Admin: 02/08/17 02:00 Dose: 100 mls/hr Vancomycin HCl 1 gm/ Dextrose 250 mls @ 166.667 mls/hr IVPB DAILY [facility] PRN Reason: Protocol Last Admin: 02/07/17 08:41 Dose: 166.667 mls/hr Ketorolac Tromethamine (Toradol) 15 mg IVP Q6 PRN PRN Reason: Pain, moderate (4-7) Last Admin: 02/04/17 22:45 Dose: 15 mg Lidocaine (Lidoderm) 1 ea TD DAILY [facility] Lorazepam (Ativan) 1 mg PO TID PRN PRN Reason: Agitation Methylprednisolone (Solu-Medrol) 20 mg IVP Q12 [facility] Last Admin: 02/08/17 08:49 Dose: 20 mg Morphine Sulfate (Morphine) 2 mg IVP Q4 PRN PRN Reason: Pain, severe (8-10) Last Admin: 02/07/17 22:09 Dose: 2 mg Multivitamins/Minerals (Therapeutic-M Tab) 1 tab PO DAILY [facility] Last Admin: 02/08/17 08:46 Dose: 1 tab Nicotine (Nicoderm Cq) 1 patch TD DAILY [facility] Last Admin: 02/08/17 08:47 Dose: 1 patch Ondansetron HCl (Zofran Inj) 4 mg IVP Q6H PRN PRN Reason: Nausea/Vomiting Oxycodone/Acetaminophen (Percocet 5/325 Mg Tab) 1 tab PO Q6 PRN PRN Reason: Pain, moderate (4-7) Stop: 02/10/17 12:09 Last Admin: 02/08/17 02:00 Dose: 1 tab Fluticasone/Salmeterol (Advair Diskus 250/50) 1 puff IH Q12 [facility] Last Admin: 02/08/17 08:46 Dose: 1 puff Thiamine HCl (Vitamin B1 Tab) 100 mg PO DAILY [facility] Last Admin: 02/07/17 08:33 Dose: 100 mg - Labs Labs: 02/08/17 04:30 02/08/17 04:30 PT 16.7 Seconds (9.8-13.1) H 01/30/17 06:30 INR 1.5 (0.9-1.2) H 01/30/17 06:30 APTT 40.3 Seconds (25.6-37.1) H 01/27/17 18:15 - Constitutional Appears: Unkempt, Chronically Ill - Head Exam Head Exam: NORMOCEPHALIC - Eye Exam Eye Exam: EOMI Pupil Exam: NORMAL ACCOMODATION - ENT Exam ENT Exam: Mucous Membranes Dry, Normal External Ear Exam - Neck Exam Neck Exam: Full ROM. absent: Meningismus - Respiratory Exam Respiratory Exam: Rales, Rhonchi, Wheezes on High Flow Oxygen - Cardiovascular Exam Cardiovascular Exam: REGULAR RHYTHM, +S1, +S2 - GI/Abdominal Exam GI & Abdominal Exam: Soft, Normal Bowel Sounds. absent: Tenderness - Extremities Exam Extremities Exam: Normal Capillary Refill, Pedal Edema. absent: Calf Tenderness - Back Exam Back Exam: absent: CVA tenderness (L), CVA tenderness (R) - Neurological Exam Neurological Exam: Awake Additional comments: oriented to person and place moves all extremities uncooperative answers some questions appropiately - Psychiatric Exam Psychiatric exam: irritable - Skin Skin Exam: Dry, Normal Color, Warm - Constitutional Appears: Unkempt, Agitated, Chronically Ill - Head Exam Head Exam: NORMOCEPHALIC - Eye Exam Eye Exam: EOMI Pupil Exam: NORMAL ACCOMODATION - ENT Exam ENT Exam: Mucous Membranes Dry, Normal External Ear Exam - Neck Exam Neck Exam: Full ROM. absent: Meningismus - Respiratory Exam Respiratory Exam: Rales, Rhonchi on High Flow Oxygen - Cardiovascular Exam Cardiovascular Exam: REGULAR RHYTHM, +S1, +S2 - GI/Abdominal Exam GI & Abdominal Exam: Soft, Normal Bowel Sounds. absent: Tenderness - Extremities Exam Extremities Exam: Normal Capillary Refill, Pedal Edema. absent: Calf Tenderness - Back Exam Back Exam: absent: CVA tenderness (L), CVA tenderness (R) - Neurological Exam Neurological Exam: Awake Additional comments: oriented to person and place moves all extremities uncooperative answers some questions appropiately - Psychiatric Exam Psychiatric exam: Agitated - Skin Skin Exam: Dry, Normal Color, Warm Assessment and Plan - Assessment and Plan (Free Text) Assessment: 51 y/o female with COPD , fatty liver, Chronic ETOH abuse ( daily 8 cups of 8 ounce vodka ) , smoker , chronic lower back pain brought to ER for evaluation by EMS for facial and lower extremity swelling , SOB and lower back pain. As per patient she has some baseline SOB with ambulation and has chronic lower back pain . Pt was having some lower back pain for which she took some Motrin and Advil PM. and when she woke up she noticed her face and eyes to be swollen and her lower extremities were swollen as well. She could not get out of bed and was having significant back pain . In the ED , was found to be in respiratory distress,with dyspnea RR 35 O2sat 94 %, slightly hypotensive BP 96/65 tachycardic HR 122. She was given 2 Duonebs in the field, 125 mg IV solumedrol in ER , started on IVF and placed on High Flow O2 ,20 LPM FIO2 60 % Her ABG showed PO2 70 PCO2 35 pH 7.38 . CXR showed bilateral infiltrates worse on the right WBC found to be elevated 16.8 Hgb 10 BUN/Cr 20/1.4 rigoberto 6.6 ASt / ALT 150/26 lactic acid 2.6 ETOH levels 73 Physical exam significant for tremors , increased work of breathing , periorbital, facial and lower extremity edema, her breath smelled of alcohol. She was admitted in ICU for close monitoring and treatment, she improved and was transferred to telemetry but became very agitated , restless , confused , tachypneic and tachycardic and so was transferred back to ICU for close monitoring. She was placed on High Flow Oxygen and started on Precedex drip .At present off Precedex drip, and has episodes of agitation and occ lethargy Attempted to get intouch with her PMD - DR Sidney Suarez - on vacation, will be back Feb 21 1. Severe Sepsis Most likely secondary to multifocal pneumonia patient was hypotensive,tachycardic,hypoxemic with WBC 16.8 and CXR showing bilateral infiltrates, lactate 2.6 on admission Sputum cx positive for yeast on High Flow Oxygen due to resp insufficiency 25 LPM FIO2 60 % WBC trending down from 18 K -- 16 K Continue Duonebs, IV vanco , Zosyn, and Diflucan , completed IV Azithro x 10 days ID consulted: Dr Escalera 2.Acute hypoxemic and hypercarbic respiratory failure Most likely secondary to multi lobar Pneumonia and COPD exacerbation . Became more lethargic possibly secondary to Fentanyl patch and librium with RR 7-9 . Narcan was given ,fentanyl patch removed and Librium dose decreased Off PreCedex drip since 02/04 @ 6 AM On High Flow Oxygen repeat CXR showed vascular congestion . Lasix was given Continue Duonebs ,decrease Solumedrol IV 20 mg Q12 Pulmonary and ID consulted Continue IV antibiotics, vanco, Zosyn , Diflucan and and Duonebs 3. Multifocal Pneumonia ID and pulmonary consulted on Vanco, Zosyn, and Diflucan Sputum cx growing yeast CXR showed improved infiltrates patient is a long time smoker so will need to follow up resolution of infiltrates to rule out any underlying malignancy 4. Facial and lower extremity edema unclear etiology of facial edema , resolved TSH : normal Given Solumedrol 125mg , Benadry and Pepcid LE venous doppler negative for DVT Echo showed normal LVF EF 65 -70 % given lasix Edema sec to liver dis ? 5. ETOH abuse / Delirium Tremens/Delirium was started on Precedex drip in ICU for being agitated , restless and has been off drip since 6 Am 02/04 On Librium , taper off continue Thiamine, Folic acid and MVI Ativan PRN Seizure precautions/ withdrawal precautions psych consulted rec Risperdal or Haldol for agitation 6. SUNDAR improved no prior records and unknown baseline renal function improved 7.COPD exacerbation-- improved Duonebs , high flow pulmonary consulted counseled on smoking decreased solumedrol 20 mg IV Q12 8. Alcohol Liver Dis Bill 6.6 AST 150 on admission. rigoberto trending down to 2.9, afebrile CT chest showed hepatomegaly , fatty infiltration , some ascitic fluid and umbilical vein recannulization significant for portal hypertension \ US showed: Hepatomegaly with steatosis.Trace perihepatic ascites.Nonspecific gallbladder wall thickening. Gallbladder wall thickening is a nonspecific finding which can be seen with ascites, hepatitis, cholecystitis,CHF or hypoproteinemic states. patient has no abdominal pain , no fever , no signs of cholecystitis Continue monitoring 9. Chronic Lower back pain Ct chest also showed mild chronic compression fracture in mid thoracic spine pain management consulted (waiting on recommendations)patient very lethargic overnight once Fentanyl patch and librium started Narcan given , Librium dose lowered and Fentanyl patch discontinued . Continue High Flow Via NC Toradol for pain control Unable to stay still for CT lumbar and thoracic spine 02/04- will reattempt today PT eval Lidoderm patch 10.Anemia unclear etiology Normal Iron and B12 level cont Thiamine 11. Smoker on nicotine patch 12 Thrombocytopenia, improved unclear if sec to alcohol vs meds - Zosyn HIT : negative restarted Lovenox now that platelet is normal and HIT negative 13. DVT prophylaxis GI prophylaxis Lovenox Pepcid
[2017-02-08] MEDS: Lidocaine 5% Patch TD SCH (11:49)
--- NOTE | 2017-02-08 11:50 | CP.PCM.CON ---
History of Present Illness - History of Present Illness History of Present Illness: Psychiatry Consult Patient was a poor historian, likely due to acute delirium, history obtained from chart CC: "I'm in pain." HPI: 51 yo female w/ h/o alcohol abuse, admitted w/ severe sepsis likely 2/2 multifocal PNA, acute hypoxemic and hypercarbic respiratory failure, now resolved facial and lower extremity edema, now unable to provide any history to comic writer. When asked questions about mood/psychosis she does not answer them appropriately. She just complains that she is in pain. She is oriented x self and "some hospital", not date. PPHx: Unclear past psychiatric history, as per chart patient has a history of alcohol abuse ALL: NKDA SHx: Patient unable to provide social history to comic writer FHx: Patient unable to provide family history to comic writer MSE: A + O x self and "some hospital", does not answer questions appropriately, therefore unable to properly assess mood or other psychiatric symptoms, thought process- non linear, poor I/J. Impression: 51 yo female w/ h/o alcohol abuse, admitted w/ severe sepsis likely 2/2 multifocal PNA, acute hypoxemic and hypercarbic respiratory failure, now resolved facial and lower extremity edema, likely acutely delirious secondary to medical conditions. -Would recommend to taper and stop Librium; unlikely patient is having current alcohol withdrawal symptoms since she was admitted almost 2 weeks ago -No acute inpatient psychiatric admission indicated, as the present symptoms are likely due to acute delirium -For acute agitation can given Risperdal 0.5 mg PO Q12 hr PRN agitation or if IM needed Haldol 1 mg IM Q12 PRN agitation; if not medically contraindicated; would recommend to recheck EKG before starting antipsychotics to determine if they are safe to start Past Patient History - Infectious Disease Hx of Infectious Diseases: None - Tetanus Immunizations Tetanus Immunization: Unknown - Past Medical History & Family History Past Medical History?: Yes - Past Social History Smoking Status: Current Some Days Smoker Chewing Tobacco Use: No Cigar Use: No Alcohol: > 2 Drinks/Day Home Situation {Lives}: With Family Domestic Violence: Negative - CARDIAC Hx Cardiac Disorders: No - PULMONARY Hx Chronic Obstructive Pulmonary Disease (COPD): Yes - NEUROLOGICAL Hx Neurological Disorder: No - HEENT Hx HEENT Problems: No - RENAL Hx Chronic Kidney Disease: No - ENDOCRINE/METABOLIC Hx Endocrine Disorders: No - HEMATOLOGICAL/ONCOLOGICAL Hx Blood Disorders: No - INTEGUMENTARY Hx Dermatological Problems: No - MUSCULOSKELETAL/RHEUMATOLOGICAL Hx Back Pain: Yes (lower back pain ) - GASTROINTESTINAL Hx Fatty Liver Disease: Yes - GENITOURINARY/GYNECOLOGICAL Hx Genitourinary Disorders: No - PSYCHIATRIC Hx Substance Use: No - SURGICAL HISTORY Hx Surgeries: No - ANESTHESIA Hx Anesthesia: No Meds Allergies/Adverse Reactions: Allergies Allergy/AdvReac Type Severity Reaction Status Date / Time No Known Allergies Allergy Verified 01/27/17 12:43 - Medications Medications: Current Medications Acetaminophen (Tylenol 325mg Tab) 650 mg PO Q6H PRN PRN Reason: Pain, Mild (1-3) Acetaminophen (Tylenol 325mg Tab) 650 mg PO Q6H PRN PRN Reason: Fever >100.4 F Albuterol/Ipratropium (Duoneb 3 Mg/0.5 Mg (3 Ml) Ud) 3 ml INH RQ4 [facility] Last Admin: 02/08/17 11:05 Dose: 3 ml Chlordiazepoxide (Librium) 25 mg PO Q8 [facility] Last Admin: 02/08/17 08:51 Dose: 25 mg Docusate Sodium (Colace) 100 mg PO BID PRN PRN Reason: Constipation Last Admin: 02/08/17 02:47 Dose: 100 mg Enoxaparin Sodium (Lovenox) 40 mg SC DAILY [facility] PRN Reason: Protocol Last Admin: 02/08/17 08:47 Dose: 40 mg Folic Acid (Folic Acid) 1 mg PO DAILY [facility] Last Admin: 02/08/17 08:47 Dose: 1 mg Fluconazole (Diflucan Iv 100 Mg/50 Ml Ns) 50 mls @ 50 mls/hr IVPB DAILY [facility] PRN Reason: Protocol Last Admin: 02/08/17 08:47 Dose: 50 mls/hr Piperacillin Sod/Tazobactam (Sod 3.375 gm/ Sodium Chloride) 100 mls @ 100 mls/ hr IVPB Q8 [facility] PRN Reason: Protocol Last Admin: 02/08/17 02:00 Dose: 100 mls/hr Vancomycin HCl 1 gm/ Dextrose 250 mls @ 166.667 mls/hr IVPB DAILY [facility] PRN Reason: Protocol Last Admin: 02/07/17 08:41 Dose: 166.667 mls/hr Ketorolac Tromethamine (Toradol) 15 mg IVP Q6 PRN PRN Reason: Pain, moderate (4-7) Last Admin: 02/04/17 22:45 Dose: 15 mg Lidocaine (Lidoderm) 1 ea TD DAILY [facility] Lorazepam (Ativan) 1 mg PO TID PRN PRN Reason: Agitation Methylprednisolone (Solu-Medrol) 20 mg IVP Q12 [facility] Last Admin: 02/08/17 08:49 Dose: 20 mg Morphine Sulfate (Morphine) 2 mg IVP Q4 [facility] PRN Reason: Pain, severe (8-10) Last Admin: 02/07/17 22:09 Dose: 2 mg Multivitamins/Minerals (Therapeutic-M Tab) 1 tab PO DAILY [facility] Last Admin: 02/08/17 08:46 Dose: 1 tab Nicotine (Nicoderm Cq) 1 patch TD DAILY [facility] Last Admin: 02/08/17 08:47 Dose: 1 patch Ondansetron HCl (Zofran Inj) 4 mg IVP Q6H PRN PRN Reason: Nausea/Vomiting Oxycodone/Acetaminophen (Percocet 5/325 Mg Tab) 1 tab PO Q6 PRN PRN Reason: Pain, moderate (4-7) Stop: 02/10/17 12:09 Last Admin: 02/08/17 02:00 Dose: 1 tab Fluticasone/Salmeterol (Advair Diskus 250/50) 1 puff IH Q12 [facility] Last Admin: 02/08/17 08:46 Dose: 1 puff Thiamine HCl (Vitamin B1 Tab) 100 mg PO DAILY [facility] Last Admin: 02/07/17 08:33 Dose: 100 mg Results - Vital Signs Recent Vital Signs: Last Vital Signs Temp 97.9 F 02/08/17 08:00 Pulse 93 H 02/08/17 11:00 Resp 21 02/08/17 11:00 BP 144/58 L 02/08/17 11:00 Pulse Ox 97 02/08/17 11:00 - Labs Result Diagrams: 02/08/17 04:30 02/08/17 04:30 Labs: Laboratory Results - last 24 hr 02/07/17 02/07/17 02/08/17 16:25 21:59 04:30 WBC 19.2 H RBC 2.53 L Hgb 8.8 L Hct 27.1 L MCV 107.0 H MCH 34.6 H MCHC 32.3 L RDW 16.5 H Plt Count 120 L MPV 8.7 Neut % (Auto) 89.7 H Lymph % (Auto) 5.2 L [place] % (Auto) 4.7 Eos % (Auto) 0.1 Baso % (Auto) 0.3 Neut # 17.3 H Lymph # 1.0 [place] # 0.9 H Eos # 0.0 Baso # 0.1 Sodium Potassium Chloride Carbon Dioxide Anion Gap BUN Creatinine Est GFR ( Amer) Est GFR (Non-Af Amer) POC Glucose (mg/dL) 146 H 162 H Random Glucose Calcium Total Bilirubin AST ALT Alkaline Phosphatase Total Protein Albumin Globulin Albumin/Globulin Ratio 02/08/17 02/08/17 02/08/17 04:30 05:06 11:15 WBC RBC Hgb Hct MCV MCH MCHC RDW Plt Count MPV Neut % (Auto) Lymph % (Auto) [place] % (Auto) Eos % (Auto) Baso % (Auto) Neut # Lymph # [place] # Eos # Baso # Sodium 140 Potassium 3.9 Chloride 98 Carbon Dioxide 38 H Anion Gap 8 L BUN 29 H Creatinine 0.7 Est GFR ( Amer) > 60 Est GFR (Non-Af Amer) > 60 POC Glucose (mg/dL) 122 H 144 H Random Glucose 110 H Calcium 9.2 Total Bilirubin 2.4 H AST 62 H ALT 76 H Alkaline Phosphatase 101 Total Protein 6.4 Albumin 3.1 L Globulin 3.3 Albumin/Globulin Ratio 0.9 L
[2017-02-08 11:54] LABS: NEUTROPHIL 92 % (42-75); TOTAL CELLS COUNTED 100
[2017-02-08 11:55] LABS: PLATELET CLUMPS PRESENT; SMUDGE CELLS PRESENT
[2017-02-08] MEDS: Vancomycin 1 GM in Dextrose 5% In Water 250 ML IVPB SCH (14:54)
[2017-02-08] MEDS: Morphine 15 mg SR Tab PO SCH (20:31)
[2017-02-08] MEDS ORDERED: RISPERIDONE 0.25 MG ODT PO SCH (21:00)
[2017-02-09] MEDS: Piperacillin/Tazobact 3.375 GM in Sodium Chloride 0.9% 100 ML IVPB SCH ×3 (01:00→16:00)
[2017-02-09] MEDS: Albuterol-Ipratrop 3 mg / 0.5 (3 ml) UD INH SCH ×6 (04:50→19:29)
[2017-02-09 04:55] LABS: BASO % 0.1 % (0.0-2.0); EOS % 0.1 % (0.0-4.0); HEMATOCRIT 26.8 % (34.0-47.0); LYMPH # 0.9 K/uL (1.0-4.3); LYMPH % 5.2 % (20.0-40.0); MEAN CELL VOLUME 106.4 fl (81.0-99.0); MEAN CORPUSCULAR HEMOGLOBIN 34.1 pg (27.0-31.0); MEAN CORPUSCULAR HGB CONC 32.1 g/dL (33.0-37.0); MEAN PLATELET VOLUME 8.7 fl (7.2-11.7); MONO # 1.1 K/uL (0.0-0.8); MONO % 6.1 % (0.0-10.0); NEUT # 15.5 K/uL (1.8-7.0); NEUT % 88.5 % (50.0-75.0); NRBC % 0.1 % (0.0-0.0); RED CELL DISTRIBUTION WIDTH 16.8 % (11.5-14.5); WHITE BLOOD COUNT 17.5 K/uL (4.8-10.8)
[2017-02-09 05:08] LABS: BLOOD UREA NITROGEN 29 mg/dl (7-17); CALCIUM 9.1 mg/dL (8.4-10.2); CARBON DIOXIDE 38 mmol/L (22-30); CHLORIDE 97 mmol/L (98-107); GFR AFRICAN-AMERICAN > 60; GLUCOSE,RANDOM 140 mg/dL (65-105); POTASSIUM 3.8 MMOL/L (3.6-5.0); SODIUM 140 mmol/l (132-148)
--- NOTE | 2017-02-09 08:14 | CT ---
PROCEDURE: CT HEAD WITHOUT CONTRAST. HISTORY: AMS COMPARISON: None available. TECHNIQUE: Axial computed tomography images were obtained through the head/brain without intravenous contrast. Coronal and sagittal reconstructed images. Radiation dose: Total exam DLP = 901.39 mGy-cm. This CT exam was performed using one or more of the following dose reduction techniques: Automated exposure control, adjustment of the mA and/or kV according to patient size, and/or use of iterative reconstruction technique. FINDINGS: HEMORRHAGE: No intracranial hemorrhage. BRAIN: No mass effect or edema. No atrophy or chronic microvascular ischemic changes. VENTRICLES: Unremarkable. No hydrocephalus. CALVARIUM: Unremarkable. PARANASAL SINUSES: Unremarkable as visualized. No significant inflammatory changes. MASTOID AIR CELLS: Unremarkable as visualized. No inflammatory changes. OTHER FINDINGS: None. IMPRESSION: No acute intracranial abnormalities. No significant findings to account for the clinical presentation.
--- NOTE | 2017-02-09 08:36 | PN ---
DATE: 02/08/2017 LOCATION: The patient in ICU, bed 424. TIME SPENT: 35 minutes. SUBJECTIVE: The patient is seen and evaluated at the bedside. Case discussed with primary attending. Overnight normotensive, afebrile. On high-flow nasal oxygen, 25 l, FiO2 of 60%, saturating over 94%. This morning, alert, awake, out of bed to chair, complaining of pain on sitting, not cooperative with physical therapy. Denies shortness of breath at rest. No cough. Reduced p.o. intake. No abdominal pain or diarrhea. PHYSICAL EXAMINATION: VITAL SIGNS: Temperature 98.2, heart rate 99, blood pressure 124/74; respiratory rate 16 to 26, thoracoabdominal; saturating 98%. Intake 1140, output not documented. Weight 228 pounds. HEAD, EYES, EARS, NOSE AND THROAT: Short neck. Reduced oropharyngeal air space. CHEST: Bilateral breath sounds diminished in intensity. Prolonged expiration. Scattered rhonchi bilaterally. HEART: Rhythm regular. S1, S2 normal. No audible murmur. ABDOMEN: Bowel sounds present, soft, mildly distended. No tenderness. EXTREMITIES: Dependent edema. DP palpable. SKIN: Without rash. CURRENT MEDICATIONS: Tylenol 650 q.6h. p.r.n., albuterol/Atrovent inhalation 3 mL q.4h., Librium 25 mg q.8h., Colace 100 mg p.o. b.i.d., Lovenox 40 subcu daily, fluconazole 100 mg daily, folic acid 1 mg daily, Toradol 50 mg IV q.6h. p.r.n., Lidoderm patch daily, Ativan 1 mg p.o. t.i.d. p.r.n., Solu-Medrol 20 mg IV q.12h., morphine at 2 mg IV q.4h. p.r.n., multivitamin 1 tablet daily, nicotine patch 40 mg daily, Zofran 4 mg IV q.6h. p.r.n., Percocet 5/325 mg q.6h. p.r.n., Zosyn 3.375 g IV q. 8h., fluticasone with salmeterol, Advair Diskus 1 puff q.12h., thiamine 100 mg daily, vancomycin 1 g IV daily. LABORATORY DATA: WBC 19.2, hemoglobin 8.2, hematocrit 27.1, platelet count 120. PT 16.7, INR 1.5. SMA-7, sodium 140, potassium 3.9, chloride 98, CO2 of 38, blood urea nitrogen 29, creatinine 0.7, glucose 144, calcium 9.2, total bilirubin 2.4, AST 62, ALT 76, alkaline phosphatase 101, total protein 6.4, albumin 3.1. Vancomycin trough level 11.1. Microbiology, sputum culture for yeast. Chest x-ray, no active pulmonary disease or acute significant interval change. IMPRESSION: 1. Neurologic: History of chronic alcohol dependence related withdrawal. Consider organic brain syndrome related to chronic alcohol dependence. Chronic backache with narcotic dependence, question narcotic withdrawal. Seen by psychiatry. No clear evidence of depression or history of depression in the past. We will wean off the Librium and then start on risperidone and Haldol as needed. 2. Pulmonary: Hypercapnic hypoxic respiratory failure secondary to chronic obstructive pulmonary disease/obesity, resolving pneumonia. Repeat chest x-ray shows no acute pathology. Continue DuoNeb. Discontinue steroid. Continue Advair. 3. Gastrointestinal: History of chronic alcohol dependence, alcohol related liver disease with elevated bilirubin, AST and ALT, improved and stable. 4. Renal: Electrolytes within normal limits. Significant CO2 retention secondary to chronic obstructive pulmonary disease as compensatory. 5. Hematology: Leukocytosis with thrombocytopenia, related to steroids and chronic liver disease, platelet count stable. Anemia of chronic disease. Discontinue Solu-Medrol. 6. Endocrine: Maintain sugar less than 180. 7. Deep venous thrombosis and gastrointestinal prophylaxis. 8. Continue nicotine patch, Colace, Lovenox, folic acid. Cy Moss MD
[2017-02-09] MEDS: Enoxaparin 40 mg Syringe SC SCH (08:46)
[2017-02-09] MEDS: Multivitamin With Minerals Tab PO SCH (08:46)
[2017-02-09] MEDS: Lidocaine 5% Patch TD SCH (08:47)
[2017-02-09] MEDS: Fluconazole IV 100mg/50 ml NS 50 ML IVPB SCH (08:50)
[2017-02-09] MEDS: Morphine 15 mg SR Tab PO SCH ×2 (08:58→22:00)
[2017-02-09] MEDS: Vancomycin 1 GM in Dextrose 5% In Water 250 ML IVPB SCH (10:01)
--- NOTE | 2017-02-09 11:22 | CT ---
PROCEDURE: CT Lumbar Spine without contrast HISTORY: intractable pain COMPARISON: None. TECHNIQUE: Axial computed tomography images were obtained of the lumbar spine without the use of intravenous contrast. Coronal and sagittal reformatted images were created and reviewed. Radiation dose: Total exam DLP = 1826.01 mGy-cm. This CT exam was performed using one or more of the following dose reduction techniques: Automated exposure control, adjustment of the mA and/or kV according to patient size, and/or use of iterative reconstruction technique. FINDINGS: VERTEBRAE: There is mild levocurvature in the lumbar spine. There is normal alignment of the lumbar vertebral bodies. There is normal lumbar lordosis. There is diffuse bone demineralization. There is a linear lucency in the superior endplate of the L3 vertebral body extending to the posterior cortex. DISCS/SPINAL CANAL/NEURAL FORAMINA: L1-2: No large disc herniation, neural foraminal or spinal canal stenosis. L2-3: No large disc herniation, neural foraminal or spinal canal stenosis. L3-4: Mild posterior disc bulge with a right foraminal and extraforaminal disc protrusion with resultant mild right neural foraminal stenosis. No spinal canal stenosis. L4-5: Broad-based central disc protrusion indents the ventral thecal sac without central spinal canal stenosis. Also noted is superimposed right paracentral, foraminal and far lateral disc protrusion which abuts the exiting right L4 nerve root mild bilateral facet arthropathy contributes to moderate right neural foraminal stenosis. L5-S1: Small central disc protrusion indents the ventral thecal sac without spinal canal stenosis. Also noted is superimposed right paracentral and foraminal disc protrusions which contribute to moderate neural foraminal stenosis. PARASPINAL SOFT TISSUES: The paraspinous soft tissues are normal. Imaged portion of the retroperitoneum is within normal limits. OTHER FINDINGS: There is small pelvic ascites. There are small bilateral pleural effusions. IMPRESSION: 1. Suspect acute osteoporotic superior endplate compression fracture in the L3 vertebral body. No retropulsion. 2. Multilevel degenerative disc disease with predominantly right paracentral foraminal and far lateral disc protrusions, worse at L4-5 with a broad-based central disc protrusion without spinal canal stenosis. Right paracentral foraminal and far lateral disc protrusions abut the exiting right L4 nerve root. 3. Additional comments as described above.
--- NOTE | 2017-02-09 11:43 | CT ---
PROCEDURE: CT Thoracic Spine without contrast HISTORY: intractable pain COMPARISON: None. TECHNIQUE: Axial computed tomography images were obtained of the thoracic spine without intravenous contrast. Coronal and sagittal reformatted images were created and reviewed. Radiation dose: Total exam DLP = mGy-cm. This CT exam was performed using one or more of the following dose reduction techniques: Automated exposure control, adjustment of the mA and/or kV according to patient size, and/or use of iterative reconstruction technique. FINDINGS: VERTEBRAE: There is normal alignment of the thoracic vertebral bodies. There is normal thoracic kyphosis. There is diffuse bone demineralization. There is an acute superior endplate compression fracture in the T7 vertebral body with approximately 50 percent loss of vertebral height. There is an acute superior endplate compression fracture in the T10 vertebral body. No retropulsion. There are age indeterminate superior endplate compression fractures in the T6 and T12 vertebral bodies. DISCS/SPINAL CANAL/NEURAL FORAMINA: Within the limits of the CT technique, no disc herniation seen. No central canal or neural foraminal stenosis.. PARASPINAL SOFT TISSUES: Unremarkable. OTHER FINDINGS: There are moderate bilateral pleural effusions and airspace disease in the right apex. IMPRESSION: 1. Acute superior endplate compression fracture in the T7 vertebral body with approximately 50 percent loss of vertebral height. No retropulsion. 2.Acute superior endplate compression fracture in the T10 vertebral body. No retropulsion. 3. Age indeterminate superior endplate compression fractures in the T6 and T12 vertebral bodies.
[2017-02-09 12:21] LABS: PARTIAL THROMBOPLASTIN TIME 19.7 Seconds (25.6-37.1)
--- NOTE | 2017-02-09 12:26 | CP.PCM.PN ---
Subjective - Date & Time of Evaluation Date of Evaluation: 02/09/17 Time of Evaluation: 11:45 - Subjective Subjective: Pt remain on High Flow Oxygen Very irritable oriented to person and place answers simple questions appropriately however uncooperative at times , and chooses what questions to answer noticed to move all extremities No fever Objective - Vital Signs/Intake and Output Vital Signs (last 24 hours): Temp Pulse Resp BP Pulse Ox 97.3 F L 89 28 H 129/84 100 02/09/17 12:00 02/09/17 12:00 02/09/17 12:00 02/09/17 12:00 02/09/17 12:00 Intake and Output: 02/09/17 02/09/17 06:59 18:59 Intake Total 254 780 Balance 254 780 - Medications Medications: Current Medications Acetaminophen (Tylenol 325mg Tab) 650 mg PO Q6H PRN PRN Reason: Pain, Mild (1-3) Acetaminophen (Tylenol 325mg Tab) 650 mg PO Q6H PRN PRN Reason: Fever >100.4 F Albuterol/Ipratropium (Duoneb 3 Mg/0.5 Mg (3 Ml) Ud) 3 ml INH RQ4 [facility] Last Admin: 02/09/17 11:30 Dose: 3 ml Chlordiazepoxide (Librium) 25 mg PO Q12 [facility] Last Admin: 02/09/17 08:50 Dose: 25 mg Docusate Sodium (Colace) 100 mg PO BID PRN PRN Reason: Constipation Last Admin: 02/08/17 20:35 Dose: 100 mg Enoxaparin Sodium (Lovenox) 40 mg SC DAILY [facility] PRN Reason: Protocol Last Admin: 02/09/17 08:46 Dose: 40 mg Folic Acid (Folic Acid) 1 mg PO DAILY [facility] Last Admin: 02/09/17 08:46 Dose: 1 mg Fluconazole (Diflucan Iv 100 Mg/50 Ml Ns) 50 mls @ 50 mls/hr IVPB DAILY [facility] PRN Reason: Protocol Last Admin: 02/09/17 08:50 Dose: 50 mls/hr Piperacillin Sod/Tazobactam (Sod 3.375 gm/ Sodium Chloride) 100 mls @ 100 mls/ hr IVPB Q8 [facility] PRN Reason: Protocol Last Admin: 02/09/17 01:00 Dose: Not Given Vancomycin HCl 1 gm/ Dextrose 250 mls @ 166.667 mls/hr IVPB DAILY [facility] PRN Reason: Protocol Last Admin: 02/09/17 10:01 Dose: 166.667 mls/hr Ketorolac Tromethamine (Toradol) 15 mg IVP Q6 PRN PRN Reason: Pain, moderate (4-7) Last Admin: 02/04/17 22:45 Dose: 15 mg Lidocaine (Lidoderm) 1 ea TD DAILY [facility] Last Admin: 02/09/17 08:47 Dose: 1 ea Lorazepam (Ativan) 1 mg PO TID PRN PRN Reason: Agitation Last Admin: 02/09/17 00:27 Dose: 1 mg Morphine Sulfate (Morphine) 2 mg IVP Q4 PRN PRN Reason: Pain, severe (8-10) Last Admin: 02/07/17 22:09 Dose: 2 mg Morphine Sulfate (Morphine Extended Release Tab) 15 mg PO Q12 [facility] Last Admin: 02/09/17 08:58 Dose: 15 mg Multivitamins/Minerals (Therapeutic-M Tab) 1 tab PO DAILY [facility] Last Admin: 02/09/17 08:46 Dose: 1 tab Nicotine (Nicoderm Cq) 1 patch TD DAILY [facility] Last Admin: 02/09/17 08:46 Dose: 1 patch Ondansetron HCl (Zofran Inj) 4 mg IVP Q6H PRN PRN Reason: Nausea/Vomiting Oxycodone/Acetaminophen (Percocet 5/325 Mg Tab) 1 tab PO Q6 PRN PRN Reason: Pain, moderate (4-7) Stop: 02/10/17 12:09 Last Admin: 02/08/17 02:00 Dose: 1 tab Prednisone (Prednisone Tab) 40 mg PO DAILY [facility] Stop: 02/12/17 09:01 Last Admin: 02/09/17 10:01 Dose: 40 mg Risperidone (Risperdal Tab) 0.5 mg PO Q12 PRN PRN Reason: Agitation Last Admin: 02/08/17 16:11 Dose: 0.5 mg Fluticasone/Salmeterol (Advair Diskus 250/50) 1 puff IH Q12 [facility] Last Admin: 02/08/17 20:32 Dose: 1 puff Thiamine HCl (Vitamin B1 Tab) 100 mg PO DAILY [facility] Last Admin: 02/09/17 08:46 Dose: 100 mg - Labs Labs: 12/06/17 04:20 02/09/17 04:20 PT 17.3 Seconds (9.8-13.1) H 02/09/17 11:55 INR 1.5 (0.9-1.2) H 02/09/17 11:55 APTT 19.7 Seconds (25.6-37.1) L 02/09/17 11:55 - Constitutional Appears: Unkempt, Chronically Ill - Head Exam Head Exam: NORMOCEPHALIC - Eye Exam Eye Exam: EOMI Pupil Exam: NORMAL ACCOMODATION - ENT Exam ENT Exam: Mucous Membranes Dry, Normal External Ear Exam - Neck Exam Neck Exam: Full ROM. absent: Meningismus - Respiratory Exam Respiratory Exam: Rales, Rhonchi, Wheezes on High Flow Oxygen - Cardiovascular Exam Cardiovascular Exam: REGULAR RHYTHM, +S1, +S2 - GI/Abdominal Exam GI & Abdominal Exam: Soft, Normal Bowel Sounds. absent: Tenderness - Extremities Exam Extremities Exam: Normal Capillary Refill, Pedal Edema. absent: Calf Tenderness - Back Exam Back Exam: absent: CVA tenderness (L), CVA tenderness (R) - Neurological Exam Neurological Exam: Awake Additional comments: oriented to person and place moves all extremities uncooperative answers some questions appropiately - Psychiatric Exam Psychiatric exam: irritable - Skin Skin Exam: Dry, Normal Color, Warm Assessment and Plan - Assessment and Plan (Free Text) Assessment: 51 y/o female with COPD , fatty liver, Chronic ETOH abuse ( daily 8 cups of 8 ounce vodka ) , smoker , chronic lower back pain brought to ER for evaluation by EMS for facial and lower extremity swelling , SOB and lower back pain. As per patient she has some baseline SOB with ambulation and has chronic lower back pain . Pt was having some lower back pain for which she took some Motrin and Advil PM. and when she woke up she noticed her face and eyes to be swollen and her lower extremities were swollen as well. She could not get out of bed and was having significant back pain . In the ED , was found to be in respiratory distress,with dyspnea RR 35 O2sat 94 %, slightly hypotensive BP 96/65 tachycardic HR 122. She was given 2 Duonebs in the field, 125 mg IV solumedrol in ER , started on IVF and placed on High Flow O2 ,20 LPM FIO2 60 % Her ABG showed PO2 70 PCO2 35 pH 7.38 . CXR showed bilateral infiltrates worse on the right WBC found to be elevated 16.8 Hgb 10 BUN/Cr 20/1.4 rigoberto 6.6 ASt / ALT 150/26 lactic acid 2.6 ETOH levels 73 Physical exam significant for tremors , increased work of breathing , periorbital, facial and lower extremity edema, her breath smelled of alcohol. She was admitted in ICU for close monitoring and treatment, she improved and was transferred to telemetry but became very agitated , restless , confused , tachypneic and tachycardic and so was transferred back to ICU for close monitoring. She was placed on High Flow Oxygen and started on Precedex drip .At present off Precedex drip, and has episodes of agitation and occ lethargy Attempted to get intouch with her PMD - DR Sidney Suarez - on vacation, will be back Feb 21. Severe Sepsis Most likely secondary to multifocal pneumonia patient was hypotensive,tachycardic,hypoxemic with WBC 16.8 and CXR showing bilateral infiltrates, lactate 2.6 on admission Sputum cx positive for yeast on High Flow Oxygen due to resp insufficiency - decreased today to 30 liters , 40% FiO2 WBC trending down from 18 K -- 16 K Continue Duonebs, IV vanco , Zosyn, and Diflucan , completed IV Azithro x 10 days ID consulted: Dr Escalera 2.Acute hypoxemic and hypercarbic respiratory failure Most likely secondary to multi lobar Pneumonia and COPD exacerbation . Became more lethargic possibly secondary to Fentanyl patch and librium with RR 7-9 . Narcan was given ,fentanyl patch removed and Librium dose decreased Off PreCedex drip since 02/04 @ 6 AM On High Flow Oxygen repeat CXR showed vascular congestion . Lasix was given Continue Duonebs ,decrease Solumedrol IV 20 mg Q12 Pulmonary and ID consulted Continue IV antibiotics, vanco, Zosyn , Diflucan and and Duonebs 3. Multifocal Pneumonia ID and pulmonary consulted on Vanco, Zosyn, and Diflucan Sputum cx growing yeast CXR showed improved infiltrates patient is a long time smoker so will need to follow up resolution of infiltrates to rule out any underlying malignancy 4. Facial and lower extremity edema unclear etiology of facial edema , resolved TSH : normal Given Solumedrol 125mg , Benadry and Pepcid LE venous doppler negative for DVT Echo showed normal LVF EF 65 -70 % given lasix Edema sec to liver dis ? 5. ETOH abuse / Delirium Tremens/Delirium was started on Precedex drip in ICU for being agitated , restless and has been off drip since 6 Am 02/04 On Librium , taper off continue Thiamine, Folic acid and MVI Ativan PRN Seizure precautions/ withdrawal precautions psych consulted rec Risperdal or Haldol for agitation 6. SUNDAR improved no prior records and unknown baseline renal function improved 7.COPD exacerbation-- improved Duonebs , high flow pulmonary consulted counseled on smoking decreased solumedrol 20 mg IV Q12 8. Alcohol Liver Dis Bill 6.6 AST 150 on admission. rigoberto trending down to 2.9, afebrile CT chest showed hepatomegaly , fatty infiltration , some ascitic fluid and umbilical vein recannulization significant for portal hypertension \ US showed: Hepatomegaly with steatosis.Trace perihepatic ascites.Nonspecific gallbladder wall thickening. Gallbladder wall thickening is a nonspecific finding which can be seen with ascites, hepatitis, cholecystitis,CHF or hypoproteinemic states. patient has no abdominal pain , no fever , no signs of cholecystitis Continue monitoring 9. Chronic Lower back pain likely sec to Compression Frcatures Ct chest also showed mild chronic compression fracture in mid thoracic spine Multiple attempts made to have pt go for CT of [place] and T spine however pt could not tolerate and could not remain still for the procedure - finally went today - CT of the spine showed Acute Thoracic and Lumbar spine compression fractures Neurosurgery consulted- rec to do MRI of the spine Pain management consulted Unable to stay still for CT lumbar and thoracic spine 02/04- will reattempt today Will hold off on PT for now , Hold Lovenox ,as pt may need procedure, hold Toradol ? Kyphoplasty Lidoderm patch 10.Anemia unclear etiology Normal Iron and B12 level cont Thiamine 11. Smoker on nicotine patch 12 Thrombocytopenia, improved unclear if sec to alcohol vs meds - Zosyn HIT : negative restarted Lovenox now that platelet is normal and HIT negative 13. DVT prophylaxis GI prophylaxis Lovenox - hold in am , as pt may need to go for ? Kyphoplasty Pepcid
--- NOTE | 2017-02-09 13:02 | CP.PCM.PN ---
Subjective - Date & Time of Evaluation Date of Evaluation: 02/09/17 Time of Evaluation: 06:00 - Subjective Subjective: weak bedridden less agitated less confuised denies chest pain Objective - Vital Signs/Intake and Output Vital Signs (last 24 hours): Temp Pulse Resp BP Pulse Ox 97.3 F L 89 28 H 129/84 100 02/09/17 12:00 02/09/17 12:00 02/09/17 12:00 02/09/17 12:00 02/09/17 12:00 Intake and Output: 02/09/17 02/09/17 06:59 18:59 Intake Total 254 780 Balance 254 780 - Medications Medications: Current Medications Acetaminophen (Tylenol 325mg Tab) 650 mg PO Q6H PRN PRN Reason: Pain, Mild (1-3) Acetaminophen (Tylenol 325mg Tab) 650 mg PO Q6H PRN PRN Reason: Fever >100.4 F Albuterol/Ipratropium (Duoneb 3 Mg/0.5 Mg (3 Ml) Ud) 3 ml INH RQ4 [facility] Last Admin: 02/09/17 11:30 Dose: 3 ml Chlordiazepoxide (Librium) 25 mg PO Q12 [facility] Last Admin: 02/09/17 08:50 Dose: 25 mg Docusate Sodium (Colace) 100 mg PO BID PRN PRN Reason: Constipation Last Admin: 02/08/17 20:35 Dose: 100 mg Enoxaparin Sodium (Lovenox) 40 mg SC DAILY [facility] PRN Reason: Protocol Last Admin: 02/09/17 08:46 Dose: 40 mg Folic Acid (Folic Acid) 1 mg PO DAILY [facility] Last Admin: 02/09/17 08:46 Dose: 1 mg Fluconazole (Diflucan Iv 100 Mg/50 Ml Ns) 50 mls @ 50 mls/hr IVPB DAILY [facility] PRN Reason: Protocol Last Admin: 02/09/17 08:50 Dose: 50 mls/hr Piperacillin Sod/Tazobactam (Sod 3.375 gm/ Sodium Chloride) 100 mls @ 100 mls/ hr IVPB Q8 [facility] PRN Reason: Protocol Last Admin: 02/09/17 01:00 Dose: Not Given Vancomycin HCl 1 gm/ Dextrose 250 mls @ 166.667 mls/hr IVPB DAILY [facility] PRN Reason: Protocol Last Admin: 02/09/17 10:01 Dose: 166.667 mls/hr Ketorolac Tromethamine (Toradol) 15 mg IVP Q6 PRN PRN Reason: Pain, moderate (4-7) Last Admin: 02/04/17 22:45 Dose: 15 mg Lidocaine (Lidoderm) 1 ea TD DAILY [facility] Last Admin: 02/09/17 08:47 Dose: 1 ea Lorazepam (Ativan) 1 mg PO TID PRN PRN Reason: Agitation Last Admin: 02/09/17 00:27 Dose: 1 mg Morphine Sulfate (Morphine) 2 mg IVP Q4 PRN PRN Reason: Pain, severe (8-10) Last Admin: 02/07/17 22:09 Dose: 2 mg Morphine Sulfate (Morphine Extended Release Tab) 15 mg PO Q12 [facility] Last Admin: 02/09/17 08:58 Dose: 15 mg Multivitamins/Minerals (Therapeutic-M Tab) 1 tab PO DAILY [facility] Last Admin: 02/09/17 08:46 Dose: 1 tab Nicotine (Nicoderm Cq) 1 patch TD DAILY [facility] Last Admin: 02/09/17 08:46 Dose: 1 patch Ondansetron HCl (Zofran Inj) 4 mg IVP Q6H PRN PRN Reason: Nausea/Vomiting Oxycodone/Acetaminophen (Percocet 5/325 Mg Tab) 1 tab PO Q6 PRN PRN Reason: Pain, moderate (4-7) Stop: 02/10/17 12:09 Last Admin: 02/08/17 02:00 Dose: 1 tab Prednisone (Prednisone Tab) 40 mg PO DAILY [facility] Stop: 02/12/17 09:01 Last Admin: 02/09/17 10:01 Dose: 40 mg Risperidone (Risperdal Tab) 0.5 mg PO Q12 PRN PRN Reason: Agitation Last Admin: 02/08/17 16:11 Dose: 0.5 mg Fluticasone/Salmeterol (Advair Diskus 250/50) 1 puff IH Q12 [facility] Last Admin: 02/08/17 20:32 Dose: 1 puff Thiamine HCl (Vitamin B1 Tab) 100 mg PO DAILY [facility] Last Admin: 02/09/17 08:46 Dose: 100 mg - Labs Labs: 02/09/17 04:20 02/09/17 04:20 PT 17.3 Seconds (9.8-13.1) H 02/09/17 11:55 INR 1.5 (0.9-1.2) H 02/09/17 11:55 APTT 19.7 Seconds (25.6-37.1) L 02/09/17 11:55 - Constitutional Appears: Non-toxic, Chronically Ill - Head Exam Head Exam: NORMOCEPHALIC - Eye Exam Eye Exam: absent: Scleral icterus - ENT Exam ENT Exam: Mucous Membranes Dry - Neck Exam Neck Exam: absent: Lymphadenopathy - Respiratory Exam Respiratory Exam: Decreased Breath Sounds, Clear to Ausculation Bilateral - Cardiovascular Exam Cardiovascular Exam: REGULAR RHYTHM - GI/Abdominal Exam GI & Abdominal Exam: Distended, Soft - Rectal Exam Rectal Exam: Deferred - Exam Exam: NORMAL INSPECTION Assessment and Plan (1) Bilateral pneumonia Status: Acute (2) COPD exacerbation Status: Acute (3) Respiratory distress Status: Acute (4) Severe sepsis Status: Acute (5) Alcohol abuse Status: Acute
[2017-02-09] MEDS: Fluticasone-Salmeterol 250-50mcg Diskus IH SCH ×2 (15:58→20:33)
--- NOTE | 2017-02-09 16:37 | CP.CCUPN ---
CCU Subjective - Physician Review Subjective (Free Text): Less episodes of agitation noted, Psych eval reviewed and agree with notion that patient should no longer be in acute Alcohol withdrawal. However, a dose of Librium was given this AM. She tolerated getting OOB to chair for several hours yesterday, but needed much assistance and use of the Ciera lift to get patient back into bed. Tolrated FiO2 reduction to 40% at 15 LPM. Other vitals and I/O's reviewed. ROS: No other pertinent negs or positives on 10+ system review. PMSFH: All Nursing and physician documentation reviewed to date; no new pertinent info noted relevant to current medical problems. IMPRESSION / MAJOR PROBLEMS NOW: 1. Hypercarbia with Acute Resp Insufficiency 2. Bilateral Pneumonia with bilateral effusions 3. Azotemia / Dehydration, with Hyperkalemia; r/o CKD 4. Chronic ETOH Intoxication with Delirium Tremans 5. Anemia, with mixed Indices; unclear acute vs. chronic disease type 6. Hyperbilirubinemia PLAN: 1. Multiple old thoracic vertebral fractures and new, acute fractures of T7 and L3. PMD to have IR eval for kyphoplasty. 2. Librium dose reduced / stopped for now. 3. Empiric Zosyn/Vanco to continue. 4. Monitor resp status closely, PCO2 levels, does not yet need airway protection nor assisted breathing at this particular moment. 5. Extremely deconditioned: needs PT and OT. CCU Objective - Vital Signs / Intake & Output Vital Signs (Last 4 hours): Vital Signs Temp Pulse Resp BP Pulse Ox 02/09/17 16:02 17 02/09/17 16:00 97.5 F L 90 18 141/86 94 L 02/09/17 14:00 87 24 124/76 93 L Intake and Output (Last 8hrs): Intake & Output 02/09/17 02/09/17 02/09/17 06:59 14:59 22:59 Intake Total 250 1020 Balance 250 1020 Intake: Intake, Piggyback 300 Oral 50 720 Tube Feeding 200 - Physical Exam Head: Positive for: Atraumatic, Normocephalic Pupils: Positive for: PERRL Extroacular Muscles: Positive for: EOMI. Negative for: Gaze Palsy Conjunctiva: Positive for: Icteric Mouth: Positive for: Moist Mucous Membranes Pharnyx: Positive for: Normal Neck: Negative for: JVD, Lymphadenopathy Respiratory/Chest: Positive for: Wheezes, Decreased Breath Sounds. Negative for : Accessory Muscle Use Cardiovascular: Positive for: Regular Rate and Rhythm, Tachycardic. Negative for: Murmurs, Rub Abdomen: Positive for: Normal Bowel Sounds, Other (obese). Negative for: Tenderness, Distention, Mass/Organomegaly Lower Extremity: Positive for: Edema, NORMAL PULSES. Negative for: CALF TENDERNESS, Cyanosis Neurological: Negative for: GCS=15 (GCS= 9 (E2V3M4)), Motor Func Grossly Intact (generalized weakness) Skin: Positive for: Warm, Dry, Other (3 ecchymotic areas along Right lateral back area). Negative for: Rashes Psychiatric: Positive for: Lethargic - Medications Active Medications: Active Medications Generic Name Dose Route Start Last Admin Trade Name Freq PRN Reason Stop Dose Admin Acetaminophen 650 mg 02/01/17 17:29 Tylenol 325mg Tab PO Q6H PRN Pain, Mild (1-3) Acetaminophen 650 mg 02/01/17 17:29 Tylenol 325mg Tab PO Q6H PRN Fever >100.4 F Albuterol/Ipratropium 3 ml 02/01/17 20:00 02/09/17 16:00 Duoneb 3 Mg/0.5 Mg (3 Ml) Ud INH 3 ml RQ4 [facility] Administration Docusate Sodium 100 mg 02/01/17 17:29 02/08/17 20:35 Colace PO 100 mg BID PRN Administration Constipation Enoxaparin Sodium 40 mg 02/05/17 09:00 02/09/17 08:46 Lovenox SC 40 mg DAILY [facility] Administration Protocol Folic Acid 1 mg 02/02/17 09:00 02/09/17 08:46 Folic Acid PO 1 mg DAILY [facility] Administration Fluconazole 50 mls @ 50 mls/hr 02/02/17 09:00 02/09/17 08:50 Diflucan Iv 100 Mg/50 Ml Ns IVPB 50 mls/hr DAILY [facility] Administration Protocol Piperacillin Sod/Tazobactam 100 mls @ 100 mls/hr 02/02/17 01:00 02/09/17 16: 00 Sod 3.375 gm/ Sodium Chloride IVPB 100 mls/hr Q8 [facility] Administration Protocol Vancomycin HCl 1 gm/ Dextrose 250 mls @ 166.667 mls/hr 02/06/17 09:00 10:01 IVPB 166.667 mls/hr DAILY [facility] Administration Protocol Ketorolac Tromethamine 15 mg 02/01/17 17:29 02/04/17 22:45 Toradol IVP 15 mg Q6 PRN Administration Pain, moderate (4-7) Lidocaine 1 ea 02/08/17 11:15 02/09/17 08:47 Lidoderm TD 1 ea DAILY [facility] Administration Lorazepam 1 mg 02/01/17 17:29 02/09/17 00:27 Ativan PO 1 mg TID PRN Administration Agitation Morphine Sulfate 2 mg 02/01/17 17:29 02/07/17 22:09 Morphine IVP 2 mg Q4 PRN Administration Pain, severe (8-10) Morphine Sulfate 15 mg 02/08/17 21:00 02/09/17 08:58 Morphine Extended Release Tab PO 15 mg Q12 [facility] Administration Multivitamins/Minerals 1 tab 02/02/17 09:00 02/09/17 08:46 Therapeutic-M Tab PO 1 tab DAILY [facility] Administration Nicotine 1 patch 02/02/17 09:00 02/09/17 08:46 Nicoderm Cq TD 1 patch DAILY [facility] Administration Ondansetron HCl 4 mg 02/01/17 17:29 Zofran Inj IVP Q6H PRN Nausea/Vomiting Oxycodone/Acetaminophen 1 tab 02/07/17 12:08 02/08/17 02:00 Percocet 5/325 Mg Tab PO 02/10/17 12:09 1 tab Q6 PRN Administration Pain, moderate (4-7) Risperidone 0.5 mg 02/08/17 14:47 02/08/17 16:11 Risperdal Tab PO 0.5 mg Q12 PRN Administration Agitation Fluticasone/Salmeterol 1 puff 02/01/17 21:00 02/09/17 15:58 Advair Diskus 250/50 IH 1 puff Q12 [facility] Administration Thiamine HCl 100 mg 02/02/17 09:00 02/09/17 08:46 Vitamin B1 Tab PO 100 mg DAILY [facility] Administration - Patient Studies Lab Studies: Lab Studies 02/09/17 02/09/17 02/09/17 Range/Units 11:55 11:10 05:53 WBC (4.8-10.8) K/uL RBC (3.80-5.20) Mil/uL Hgb (12.0-16.0) g/dL Hct (34.0-47.0) % MCV (81.0-99.0) fl MCH (27.0-31.0) pg MCHC (33.0-37.0) g/dL RDW (11.5-14.5) % Plt Count (130-400) K/uL MPV (7.2-11.7) fl Neut % (Auto) (50.0-75.0) % Lymph % (Auto) (20.0-40.0) % Dixie % (Auto) (0.0-10.0) % Eos % (Auto) (0.0-4.0) % Baso % (Auto) (0.0-2.0) % Neut # (1.8-7.0) K/uL Lymph # (1.0-4.3) K/uL Dixie # (0.0-0.8) K/uL Eos # (0.0-0.7) K/uL Baso # (0.0-0.2) K/uL PT 17.3 H (9.8-13.1) Seconds INR 1.5 H (0.9-1.2) APTT 19.7 L (25.6-37.1) Seconds Sodium (132-148) mmol/l Potassium (3.6-5.0) MMOL/L Chloride (98-107) mmol/L Carbon Dioxide (22-30) mmol/L Anion Gap (10-20) BUN (7-17) mg/dl Creatinine (0.7-1.2) mg/dl Est GFR ( Amer) Est GFR (Non-Af Amer) POC Glucose (mg/dL) 133 H 145 H (65-110) mg/dL Random Glucose (65-105) mg/dL Calcium (8.4-10.2) mg/dL 02/09/17 02/09/17 02/08/17 Range/Units 04:20 04:20 21:02 WBC 17.5 H (4.8-10.8) K/uL RBC 2.52 L (3.80-5.20) Mil/uL Hgb 8.6 L (12.0-16.0) g/dL Hct 26.8 L (34.0-47.0) % MCV 106.4 H (81.0-99.0) fl MCH 34.1 H (27.0-31.0) pg MCHC 32.1 L (33.0-37.0) g/dL RDW 16.8 H (11.5-14.5) % Plt Count 121 L (130-400) K/uL MPV 8.7 (7.2-11.7) fl Neut % (Auto) 88.5 H (50.0-75.0) % Lymph % (Auto) 5.2 L (20.0-40.0) % Dixie % (Auto) 6.1 (0.0-10.0) % Eos % (Auto) 0.1 (0.0-4.0) % Baso % (Auto) 0.1 (0.0-2.0) % Neut # 15.5 H (1.8-7.0) K/uL Lymph # 0.9 L (1.0-4.3) K/uL Dixie # 1.1 H (0.0-0.8) K/uL Eos # 0.0 (0.0-0.7) K/uL Baso # 0.0 (0.0-0.2) K/uL PT (9.8-13.1) Seconds INR (0.9-1.2) APTT (25.6-37.1) Seconds Sodium 140 (132-148) mmol/l Potassium 3.8 (3.6-5.0) MMOL/L Chloride 97 L (98-107) mmol/L Carbon Dioxide 38 H (22-30) mmol/L Anion Gap 9 L (10-20) BUN 29 H (7-17) mg/dl Creatinine 0.6 L (0.7-1.2) mg/dl Est GFR ( Amer) > 60 Est GFR (Non-Af Amer) > 60 POC Glucose (mg/dL) 184 H (65-110) mg/dL Random Glucose 140 H (65-105) mg/dL Calcium 9.1 (8.4-10.2) mg/dL 02/08/17 Range/Units 17:07 WBC (4.8-10.8) K/uL RBC (3.80-5.20) Mil/uL Hgb (12.0-16.0) g/dL Hct (34.0-47.0) % MCV (81.0-99.0) fl MCH (27.0-31.0) pg MCHC (33.0-37.0) g/dL RDW (11.5-14.5) % Plt Count (130-400) K/uL MPV (7.2-11.7) fl Neut % (Auto) (50.0-75.0) % Lymph % (Auto) (20.0-40.0) % Dixie % (Auto) (0.0-10.0) % Eos % (Auto) (0.0-4.0) % Baso % (Auto) (0.0-2.0) % Neut # (1.8-7.0) K/uL Lymph # (1.0-4.3) K/uL Dixie # (0.0-0.8) K/uL Eos # (0.0-0.7) K/uL Baso # (0.0-0.2) K/uL PT (9.8-13.1) Seconds INR (0.9-1.2) APTT (25.6-37.1) Seconds Sodium (132-148) mmol/l Potassium (3.6-5.0) MMOL/L Chloride (98-107) mmol/L Carbon Dioxide (22-30) mmol/L Anion Gap (10-20) BUN (7-17) mg/dl Creatinine (0.7-1.2) mg/dl Est GFR ( Amer) Est GFR (Non-Af Amer) POC Glucose (mg/dL) 160 H (65-110) mg/dL Random Glucose (65-105) mg/dL Calcium (8.4-10.2) mg/dL Laboratory Results - last 24 hr 02/08/17 02/08/17 02/09/17 17:07 21:02 04:20 WBC 17.5 H RBC 2.52 L Hgb 8.6 L Hct 26.8 L MCV 106.4 H MCH 34.1 H MCHC 32.1 L RDW 16.8 H Plt Count 121 L MPV 8.7 Neut % (Auto) 88.5 H Lymph % (Auto) 5.2 L Dixie % (Auto) 6.1 Eos % (Auto) 0.1 Baso % (Auto) 0.1 Neut # 15.5 H Lymph # 0.9 L Dixie # 1.1 H Eos # 0.0 Baso # 0.0 PT INR APTT Sodium Potassium Chloride Carbon Dioxide Anion Gap BUN Creatinine Est GFR ( Amer) Est GFR (Non-Af Amer) POC Glucose (mg/dL) 160 H 184 H Random Glucose Calcium 02/09/17 02/09/17 02/09/17 04:20 05:53 11:10 WBC RBC Hgb Hct MCV MCH MCHC RDW Plt Count MPV Neut % (Auto) Lymph % (Auto) Dixie % (Auto) Eos % (Auto) Baso % (Auto) Neut # Lymph # Dixie # Eos # Baso # PT INR APTT Sodium 140 Potassium 3.8 Chloride 97 L Carbon Dioxide 38 H Anion Gap 9 L BUN 29 H Creatinine 0.6 L Est GFR ( Amer) > 60 Est GFR (Non-Af Amer) > 60 POC Glucose (mg/dL) 145 H 133 H Random Glucose 140 H Calcium 9.1 02/09/17 11:55 WBC RBC Hgb Hct MCV MCH MCHC RDW Plt Count MPV Neut % (Auto) Lymph % (Auto) Dixie % (Auto) Eos % (Auto) Baso % (Auto) Neut # Lymph # Dixie # Eos # Baso # PT 17.3 H INR 1.5 H APTT 19.7 L Sodium Potassium Chloride Carbon Dioxide Anion Gap BUN Creatinine Est GFR ( Amer) Est GFR (Non-Af Amer) POC Glucose (mg/dL) Random Glucose Calcium Fingerstick Blood Sugar Results: 143 Review of Systems - Review of Systems All systems: reviewed and no additional remarkable complaints except (as above) Critical Care Progress Note - Nutrition Nutrition: Nutrition Category Date Time Status Regular Diet [DIET] Diets 01/27/17 Lunch Active
[2017-02-10] MEDS: Albuterol-Ipratrop 3 mg / 0.5 (3 ml) UD INH SCH ×6 (00:28→19:19)
[2017-02-10] MEDS: Piperacillin/Tazobact 3.375 GM in Sodium Chloride 0.9% 100 ML IVPB SCH ×3 (01:00→18:30)
[2017-02-10 05:26] LABS: HEMATOCRIT 27.2 % (34.0-47.0); MEAN CELL VOLUME 107.4 fl (81.0-99.0); MEAN CORPUSCULAR HEMOGLOBIN 34.8 pg (27.0-31.0); MEAN CORPUSCULAR HGB CONC 32.4 g/dL (33.0-37.0); RED CELL DISTRIBUTION WIDTH 17.5 % (11.5-14.5); WHITE BLOOD COUNT 14.8 K/uL (4.8-10.8)
[2017-02-10 06:39] LABS: ALB/GLOB RATIO 0.9 (1.0-2.1); ALKALINE PHOSPHATASE 113 U/L (38-126); ALT/SGPT 105 U/L (9-52); AST/SGOT 94 U/L (14-36); BILIRUBIN,TOTAL 2.1 mg/dl (0.2-1.3); BLOOD UREA NITROGEN 28 mg/dl (7-17); CALCIUM 9.1 mg/dL (8.4-10.2); CARBON DIOXIDE 40 mmol/L (22-30); CHLORIDE 95 mmol/L (98-107); GFR AFRICAN-AMERICAN > 60; GLUCOSE,RANDOM 92 mg/dL (65-105); SODIUM 139 mmol/l (132-148); TOTAL PROTEIN 6.5 G/DL (6.3-8.2)
--- NOTE | 2017-02-10 07:38 | CP.CCUPN ---
CCU Subjective - Physician Review Subjective (Free Text): Tolerated FiO2 reduction to 40% at 15 LPM. Still has intermittent back pain. No fevers, chills, nor focal weaknesses. She is aware of surroundings, conversant when she wants to be. Other vitals and I/O's reviewed. No new fever spikes. ROS: No other pertinent negs or positives on 10+ system review. PMSFH: All Nursing and physician documentation reviewed to date; no new pertinent info noted relevant to current medical problems. IMPRESSION / MAJOR PROBLEMS NOW: 1. Hypercarbia with Acute Resp Insufficiency 2. Bilateral Pneumonia with bilateral effusions: resolving 3. Azotemia / Dehydration, with Hyperkalemia 4. Chronic ETOH Intoxication with Delirium Tremans 5. Anemia, with mixed Indices; unclear acute vs. chronic disease type initially. 6. Hyperbilirubinemia PLAN: 1. Multiple old thoracic vertebral fractures and new, acute fractures of T7 and L3. PMD to have IR eval for kyphoplasty and neurosurgical eval. 2. Librium dose reduced and now stopped. Cautious narcotic analgesic usage. 3. Empiric Zosyn/Vanco to continue. 4. Monitor resp status closely, PCO2 levels, does not yet need airway protection nor assisted breathing at this particular moment. As sedative effects of meds dissipate, hopefully, PCO2 levels will improve. Consider short term Diamox use with elevated serum Bicarb levels at 40 now. 5. Extremely deconditioned: PT and OT. CCU Objective - Vital Signs / Intake & Output Vital Signs (Last 4 hours): Vital Signs Temp Pulse Resp BP Pulse Ox 02/10/17 06:00 81 16 124/77 97 02/10/17 05:18 18 02/10/17 04:00 98.0 F 80 13 122/70 97 Intake and Output (Last 8hrs): Intake & Output 02/09/17 02/10/17 02/10/17 22:59 06:59 14:59 Intake Total 700 100 Output Total 0 Balance 700 100 Intake: IV 0 100 Intake, Piggyback 100 Oral 600 Output: Urine 0 Urine, Voided 0 Other: # Voids Urine, Voided 2 - Physical Exam Head: Positive for: Atraumatic, Normocephalic Pupils: Positive for: PERRL Extroacular Muscles: Positive for: EOMI. Negative for: Gaze Palsy Conjunctiva: Positive for: Icteric Mouth: Positive for: Moist Mucous Membranes Pharnyx: Positive for: Normal Neck: Negative for: JVD, Lymphadenopathy Respiratory/Chest: Positive for: Wheezes, Decreased Breath Sounds. Negative for : Accessory Muscle Use Cardiovascular: Positive for: Regular Rate and Rhythm, Tachycardic. Negative for: Murmurs, Rub Abdomen: Positive for: Normal Bowel Sounds, Other (obese). Negative for: Tenderness, Distention, Mass/Organomegaly Lower Extremity: Positive for: Edema, NORMAL PULSES. Negative for: CALF TENDERNESS, Cyanosis Neurological: Negative for: GCS=15 (GCS= 9 (E2V3M4)), Motor Func Grossly Intact (generalized weakness) Skin: Positive for: Warm, Dry, Other (3 ecchymotic areas along Right lateral back area). Negative for: Rashes Psychiatric: Positive for: Lethargic - Medications Active Medications: Active Medications Generic Name Dose Route Start Last Admin Trade Name Freq PRN Reason Stop Dose Admin Acetaminophen 650 mg 02/01/17 17:29 Tylenol 325mg Tab PO Q6H PRN Pain, Mild (1-3) Acetaminophen 650 mg 02/01/17 17:29 Tylenol 325mg Tab PO Q6H PRN Fever >100.4 F Albuterol/Ipratropium 3 ml 02/01/17 20:00 02/10/17 05:18 Duoneb 3 Mg/0.5 Mg (3 Ml) Ud INH 3 ml RQ4 [facility] Administration Docusate Sodium 100 mg 02/01/17 17:29 02/08/17 20:35 Colace PO 100 mg BID PRN Administration Constipation Enoxaparin Sodium 40 mg 02/05/17 09:00 02/09/17 08:46 Lovenox SC 40 mg DAILY [facility] Administration Protocol Folic Acid 1 mg 02/02/17 09:00 02/09/17 08:46 Folic Acid PO 1 mg DAILY [facility] Administration Fluconazole 50 mls @ 50 mls/hr 02/02/17 09:00 02/09/17 08:50 Diflucan Iv 100 Mg/50 Ml Ns IVPB 50 mls/hr DAILY [facility] Administration Protocol Piperacillin Sod/Tazobactam 100 mls @ 100 mls/hr 02/02/17 01:00 02/10/17 01: 00 Sod 3.375 gm/ Sodium Chloride IVPB 100 mls/hr Q8 [facility] Administration Protocol Vancomycin HCl 1 gm/ Dextrose 250 mls @ 166.667 mls/hr 02/06/17 09:00 10:01 IVPB 166.667 mls/hr DAILY [facility] Administration Protocol Lidocaine 1 ea 02/08/17 11:15 02/09/17 08:47 Lidoderm TD 1 ea DAILY [facility] Administration Lorazepam 1 mg 02/01/17 17:29 02/09/17 00:27 Ativan PO 1 mg TID PRN Administration Agitation Morphine Sulfate 2 mg 02/01/17 17:29 02/07/17 22:09 Morphine IVP 2 mg Q4 PRN Administration Pain, severe (8-10) Morphine Sulfate 15 mg 02/08/17 21:00 02/09/17 22:00 Morphine Extended Release Tab PO Not Given Q12 [facility] Multivitamins/Minerals 1 tab 02/02/17 09:00 02/09/17 08:46 Therapeutic-M Tab PO 1 tab DAILY [facility] Administration Nicotine 1 patch 02/02/17 09:00 02/09/17 08:46 Nicoderm Cq TD 1 patch DAILY [facility] Administration Ondansetron HCl 4 mg 02/01/17 17:29 Zofran Inj IVP Q6H PRN Nausea/Vomiting Oxycodone/Acetaminophen 1 tab 02/07/17 12:08 02/08/17 02:00 Percocet 5/325 Mg Tab PO 02/10/17 12:09 1 tab Q6 PRN Administration Pain, moderate (4-7) Risperidone 0.5 mg 02/08/17 14:47 02/08/17 16:11 Risperdal Tab PO 0.5 mg Q12 PRN Administration Agitation Fluticasone/Salmeterol 1 puff 02/01/17 21:00 02/09/17 20:33 Advair Diskus 250/50 IH 1 puff Q12 [facility] Administration Thiamine HCl 100 mg 02/02/17 09:00 02/09/17 08:46 Vitamin B1 Tab PO 100 mg DAILY [facility] Administration - Patient Studies Lab Studies: Lab Studies 02/10/17 02/10/17 02/10/17 Range/Units 04:20 04:20 04:20 WBC 14.8 H (4.8-10.8) K/uL RBC 2.54 L (3.80-5.20) Mil/uL Hgb 8.8 L (12.0-16.0) g/dL Hct 27.2 L (34.0-47.0) % MCV 107.4 H (81.0-99.0) fl MCH 34.8 H (27.0-31.0) pg MCHC 32.4 L (33.0-37.0) g/dL RDW 17.5 H (11.5-14.5) % Plt Count 108 L (130-400) K/uL PT (9.8-13.1) Seconds INR (0.9-1.2) APTT (25.6-37.1) Seconds Sodium 139 (132-148) mmol/l Potassium 4.0 (3.6-5.0) MMOL/L Chloride 95 L (98-107) mmol/L Carbon Dioxide 40 H* (22-30) mmol/L Anion Gap 8 L (10-20) BUN 28 H (7-17) mg/dl Creatinine 0.8 (0.7-1.2) mg/dl Est GFR ( Amer) > 60 Est GFR (Non-Af Amer) > 60 POC Glucose (mg/dL) (65-110) mg/dL Random Glucose 92 (65-105) mg/dL Calcium 9.1 (8.4-10.2) mg/dL Total Bilirubin 2.1 H (0.2-1.3) mg/dl AST 94 H D (14-36) U/L ALT 105 H D (9-52) U/L Alkaline Phosphatase 113 (38-126) U/L Total Protein 6.5 (6.3-8.2) G/DL Albumin 3.0 L (3.5-5.0) g/dL Globulin 3.4 (2.2-3.9) gm/dL Albumin/Globulin Ratio 0.9 L (1.0-2.1) Vancomycin Trough 9.9 (5.0-10.0) ug/mL 02/09/17 02/09/17 02/09/17 Range/Units 21:21 16:25 11:55 WBC (4.8-10.8) K/uL RBC (3.80-5.20) Mil/uL Hgb (12.0-16.0) g/dL Hct (34.0-47.0) % MCV (81.0-99.0) fl MCH (27.0-31.0) pg MCHC (33.0-37.0) g/dL RDW (11.5-14.5) % Plt Count (130-400) K/uL PT 17.3 H (9.8-13.1) Seconds INR 1.5 H (0.9-1.2) APTT 19.7 L (25.6-37.1) Seconds Sodium (132-148) mmol/l Potassium (3.6-5.0) MMOL/L Chloride (98-107) mmol/L Carbon Dioxide (22-30) mmol/L Anion Gap (10-20) BUN (7-17) mg/dl Creatinine (0.7-1.2) mg/dl Est GFR ( Amer) Est GFR (Non-Af Amer) POC Glucose (mg/dL) 116 H 143 H (65-110) mg/dL Random Glucose (65-105) mg/dL Calcium (8.4-10.2) mg/dL Total Bilirubin (0.2-1.3) mg/dl AST (14-36) U/L ALT (9-52) U/L Alkaline Phosphatase (38-126) U/L Total Protein (6.3-8.2) G/DL Albumin (3.5-5.0) g/dL Globulin (2.2-3.9) gm/dL Albumin/Globulin Ratio (1.0-2.1) Vancomycin Trough (5.0-10.0) ug/mL 02/09/17 Range/Units 11:10 WBC (4.8-10.8) K/uL RBC (3.80-5.20) Mil/uL Hgb (12.0-16.0) g/dL Hct (34.0-47.0) % MCV (81.0-99.0) fl MCH (27.0-31.0) pg MCHC (33.0-37.0) g/dL RDW (11.5-14.5) % Plt Count (130-400) K/uL PT (9.8-13.1) Seconds INR (0.9-1.2) APTT (25.6-37.1) Seconds Sodium (132-148) mmol/l Potassium (3.6-5.0) MMOL/L Chloride (98-107) mmol/L Carbon Dioxide (22-30) mmol/L Anion Gap (10-20) BUN (7-17) mg/dl Creatinine (0.7-1.2) mg/dl Est GFR ( Amer) Est GFR (Non-Af Amer) POC Glucose (mg/dL) 133 H (65-110) mg/dL Random Glucose (65-105) mg/dL Calcium (8.4-10.2) mg/dL Total Bilirubin (0.2-1.3) mg/dl AST (14-36) U/L ALT (9-52) U/L Alkaline Phosphatase (38-126) U/L Total Protein (6.3-8.2) G/DL Albumin (3.5-5.0) g/dL Globulin (2.2-3.9) gm/dL Albumin/Globulin Ratio (1.0-2.1) Vancomycin Trough (5.0-10.0) ug/mL Laboratory Results - last 24 hr 02/09/17 02/09/17 02/09/17 11:10 11:55 16:25 WBC RBC Hgb Hct MCV MCH MCHC RDW Plt Count PT 17.3 H INR 1.5 H APTT 19.7 L Sodium Potassium Chloride Carbon Dioxide Anion Gap BUN Creatinine Est GFR ( Amer) Est GFR (Non-Af Amer) POC Glucose (mg/dL) 133 H 143 H Random Glucose Calcium Total Bilirubin AST ALT Alkaline Phosphatase Total Protein Albumin Globulin Albumin/Globulin Ratio Vancomycin Trough 02/09/17 02/10/17 02/10/17 21:21 04:20 04:20 WBC 14.8 H RBC 2.54 L Hgb 8.8 L Hct 27.2 L MCV 107.4 H MCH 34.8 H MCHC 32.4 L RDW 17.5 H Plt Count 108 L PT INR APTT Sodium Potassium Chloride Carbon Dioxide Anion Gap BUN Creatinine Est GFR ( Amer) Est GFR (Non-Af Amer) POC Glucose (mg/dL) 116 H Random Glucose Calcium Total Bilirubin AST ALT Alkaline Phosphatase Total Protein Albumin Globulin Albumin/Globulin Ratio Vancomycin Trough 9.9 02/10/17 04:20 WBC RBC Hgb Hct MCV MCH MCHC RDW Plt Count PT INR APTT Sodium 139 Potassium 4.0 Chloride 95 L Carbon Dioxide 40 H* Anion Gap 8 L BUN 28 H Creatinine 0.8 Est GFR ( Amer) > 60 Est GFR (Non-Af Amer) > 60 POC Glucose (mg/dL) Random Glucose 92 Calcium 9.1 Total Bilirubin 2.1 H AST 94 H D ALT 105 H D Alkaline Phosphatase 113 Total Protein 6.5 Albumin 3.0 L Globulin 3.4 Albumin/Globulin Ratio 0.9 L Vancomycin Trough Fingerstick Blood Sugar Results: 116 Review of Systems - Review of Systems All systems: reviewed and no additional remarkable complaints except (as above) Critical Care Progress Note - Nutrition Nutrition: Nutrition Category Date Time Status Regular Diet [DIET] Diets 01/27/17 Lunch Active
[2017-02-10] MEDS: Fluticasone-Salmeterol 250-50mcg Diskus IH SCH ×2 (08:50→21:05)
[2017-02-10] MEDS: Lidocaine 5% Patch TD SCH (08:53)
[2017-02-10] MEDS: Multivitamin With Minerals Tab PO SCH (08:57)
[2017-02-10] MEDS: Fluconazole IV 100mg/50 ml NS 50 ML IVPB SCH (09:01)
[2017-02-10] MEDS: Morphine 15 mg SR Tab PO SCH ×2 (09:02→21:04)
[2017-02-10] MEDS: Vancomycin 1 GM in Dextrose 5% In Water 250 ML IVPB SCH (09:03)
--- NOTE | 2017-02-10 09:42 | CP.PCM.PN ---
Subjective - Date & Time of Evaluation Date of Evaluation: 02/10/17 Time of Evaluation: 09:40 - Subjective Subjective: pt has lbp chronic, with acute exacerbation with this bout of pneumonia Has pain only in back no radiclar component Pt not able to ambulate because of weakness but able to move legs also c/o swollen feet exam shows some lumbar tenderness 4-/5 st throughout lower extremities no sensory deficits CT t and l spine show mult comp fx with no retropulsion and broad based disc herniation L4/5 Pt has had no treatment for this She is poor surgical candidate given her pulmonary status Recommend: 1- Start with PT/rehab 2-if that fails pain managment 3- hold off MRI of L spine as I doubt it would add anything at this point, but if PT does not improve pain would get MR prior to any invasive therapy. Objective - Vital Signs/Intake and Output Vital Signs (last 24 hours): Temp Pulse Resp BP Pulse Ox 97.8 F 87 15 114/67 100 02/10/17 08:00 02/10/17 08:00 02/10/17 08:00 02/10/17 08:00 02/10/17 08:00 Intake and Output: 02/10/17 02/10/17 06:59 18:59 Intake Total 100 Output Total 0 Balance 100 - Medications Medications: Current Medications Acetaminophen (Tylenol 325mg Tab) 650 mg PO Q6H PRN PRN Reason: Pain, Mild (1-3) Acetaminophen (Tylenol 325mg Tab) 650 mg PO Q6H PRN PRN Reason: Fever >100.4 F Acetazolamide (Diamox Sequels 500 Mg Sr Cap) 500 mg PO DAILY [facility] Albuterol/Ipratropium (Duoneb 3 Mg/0.5 Mg (3 Ml) Ud) 3 ml INH RQ4 [facility] Last Admin: 02/10/17 08:01 Dose: Not Given Docusate Sodium (Colace) 100 mg PO BID PRN PRN Reason: Constipation Last Admin: 02/08/17 20:35 Dose: 100 mg Enoxaparin Sodium (Lovenox) 40 mg SC DAILY [facility] PRN Reason: Protocol Last Admin: 02/09/17 08:46 Dose: 40 mg Folic Acid (Folic Acid) 1 mg PO DAILY [facility] Last Admin: 02/10/17 08:52 Dose: 1 mg Fluconazole (Diflucan Iv 100 Mg/50 Ml Ns) 50 mls @ 50 mls/hr IVPB DAILY [facility] PRN Reason: Protocol Last Admin: 02/10/17 09:01 Dose: 50 mls/hr Piperacillin Sod/Tazobactam (Sod 3.375 gm/ Sodium Chloride) 100 mls @ 100 mls/ hr IVPB Q8 [facility] PRN Reason: Protocol Last Admin: 02/10/17 09:04 Dose: 100 mls/hr Vancomycin HCl 1 gm/ Dextrose 250 mls @ 166.667 mls/hr IVPB DAILY [facility] PRN Reason: Protocol Last Admin: 02/10/17 09:03 Dose: 166.667 mls/hr Lidocaine (Lidoderm) 1 ea TD DAILY [facility] Last Admin: 02/10/17 08:53 Dose: 1 ea Lorazepam (Ativan) 1 mg PO TID PRN PRN Reason: Agitation Last Admin: 02/09/17 00:27 Dose: 1 mg Morphine Sulfate (Morphine) 2 mg IVP Q4 PRN PRN Reason: Pain, severe (8-10) Last Admin: 02/07/17 22:09 Dose: 2 mg Morphine Sulfate (Morphine Extended Release Tab) 15 mg PO Q12 [facility] Last Admin: 02/10/17 09:02 Dose: 15 mg Multivitamins/Minerals (Therapeutic-M Tab) 1 tab PO DAILY [facility] Last Admin: 02/10/17 08:57 Dose: 1 tab Nicotine (Nicoderm Cq) 1 patch TD DAILY [facility] Last Admin: 02/10/17 08:56 Dose: 1 patch Ondansetron HCl (Zofran Inj) 4 mg IVP Q6H PRN PRN Reason: Nausea/Vomiting Oxycodone/Acetaminophen (Percocet 5/325 Mg Tab) 1 tab PO Q6 PRN PRN Reason: Pain, moderate (4-7) Stop: 02/10/17 12:09 Last Admin: 02/08/17 02:00 Dose: 1 tab Risperidone (Risperdal Tab) 0.5 mg PO Q12 PRN PRN Reason: Agitation Last Admin: 02/08/17 16:11 Dose: 0.5 mg Fluticasone/Salmeterol (Advair Diskus 250/50) 1 puff IH Q12 [facility] Last Admin: 02/10/17 08:50 Dose: 1 puff Thiamine HCl (Vitamin B1 Tab) 100 mg PO DAILY [facility] Last Admin: 02/10/17 08:57 Dose: 100 mg - Labs Labs: 02/10/17 04:20 02/10/17 04:20 PT 17.3 Seconds (9.8-13.1) H 02/09/17 11:55 INR 1.5 (0.9-1.2) H 02/09/17 11:55 APTT 19.7 Seconds (25.6-37.1) L 02/09/17 11:55
--- NOTE | 2017-02-10 12:06 | CP.PCM.PN ---
Subjective - Date & Time of Evaluation Date of Evaluation: 02/10/17 Time of Evaluation: 10:00 - Subjective Subjective: Patient was seen and examined at bedside. High Flow Oxygen was stopped and patient started on Nasal cannula at 2 liters- continues to saturate well so far. Patient continues to be irritable. No c/p, fever Objective - Vital Signs/Intake and Output Vital Signs (last 24 hours): Temp Pulse Resp BP Pulse Ox 97.8 F 87 15 114/67 100 02/10/17 08:00 02/10/17 08:00 02/10/17 08:00 02/10/17 08:00 02/10/17 08:00 Intake and Output: 02/10/17 02/10/17 06:59 18:59 Intake Total 100 336 Output Total 0 Balance 100 336 - Medications Medications: Current Medications Acetaminophen (Tylenol 325mg Tab) 650 mg PO Q6H PRN PRN Reason: Pain, Mild (1-3) Acetaminophen (Tylenol 325mg Tab) 650 mg PO Q6H PRN PRN Reason: Fever >100.4 F Acetazolamide (Diamox Sequels 500 Mg Sr Cap) 500 mg PO DAILY [facility] Albuterol/Ipratropium (Duoneb 3 Mg/0.5 Mg (3 Ml) Ud) 3 ml INH RQ4 [facility] Last Admin: 02/10/17 11:08 Dose: Not Given Docusate Sodium (Colace) 100 mg PO BID PRN PRN Reason: Constipation Last Admin: 02/08/17 20:35 Dose: 100 mg Enoxaparin Sodium (Lovenox) 40 mg SC DAILY [facility] PRN Reason: Protocol Last Admin: 02/09/17 08:46 Dose: 40 mg Folic Acid (Folic Acid) 1 mg PO DAILY [facility] Last Admin: 02/10/17 08:52 Dose: 1 mg Fluconazole (Diflucan Iv 100 Mg/50 Ml Ns) 50 mls @ 50 mls/hr IVPB DAILY [facility] PRN Reason: Protocol Last Admin: 02/10/17 09:01 Dose: 50 mls/hr Piperacillin Sod/Tazobactam (Sod 3.375 gm/ Sodium Chloride) 100 mls @ 100 mls/ hr IVPB Q8 [facility] PRN Reason: Protocol Last Admin: 02/10/17 09:04 Dose: 100 mls/hr Vancomycin HCl 1 gm/ Dextrose 250 mls @ 166.667 mls/hr IVPB DAILY [facility] PRN Reason: Protocol Last Admin: 02/10/17 09:03 Dose: 166.667 mls/hr Lidocaine (Lidoderm) 1 ea TD DAILY [facility] Last Admin: 02/10/17 08:53 Dose: 1 ea Lorazepam (Ativan) 1 mg PO TID PRN PRN Reason: Agitation Last Admin: 02/09/17 00:27 Dose: 1 mg Morphine Sulfate (Morphine) 2 mg IVP Q4 PRN PRN Reason: Pain, severe (8-10) Last Admin: 02/07/17 22:09 Dose: 2 mg Morphine Sulfate (Morphine Extended Release Tab) 15 mg PO Q12 [facility] Last Admin: 02/10/17 09:02 Dose: 15 mg Multivitamins/Minerals (Therapeutic-M Tab) 1 tab PO DAILY [facility] Last Admin: 02/10/17 08:57 Dose: 1 tab Nicotine (Nicoderm Cq) 1 patch TD DAILY [facility] Last Admin: 02/10/17 08:56 Dose: 1 patch Ondansetron HCl (Zofran Inj) 4 mg IVP Q6H PRN PRN Reason: Nausea/Vomiting Oxycodone/Acetaminophen (Percocet 5/325 Mg Tab) 1 tab PO Q6 PRN PRN Reason: Pain, moderate (4-7) Stop: 02/10/17 12:09 Last Admin: 02/08/17 02:00 Dose: 1 tab Risperidone (Risperdal Tab) 0.5 mg PO Q12 PRN PRN Reason: Agitation Last Admin: 02/08/17 16:11 Dose: 0.5 mg Fluticasone/Salmeterol (Advair Diskus 250/50) 1 puff IH Q12 [facility] Last Admin: 02/10/17 08:50 Dose: 1 puff Thiamine HCl (Vitamin B1 Tab) 100 mg PO DAILY [facility] Last Admin: 02/10/17 08:57 Dose: 100 mg - Labs Labs: 02/10/17 04:20 02/10/17 04:20 PT 17.3 Seconds (9.8-13.1) H 02/09/17 11:55 INR 1.5 (0.9-1.2) H 02/09/17 11:55 APTT 19.7 Seconds (25.6-37.1) L 02/09/17 11:55 - Additional Findings Additional findings: - Constitutional Appears: Unkempt, Chronically Ill - Head Exam Head Exam: NORMOCEPHALIC - Eye Exam Eye Exam: EOMI Pupil Exam: NORMAL ACCOMODATION - ENT Exam ENT Exam: Mucous Membranes Dry, Normal External Ear Exam - Neck Exam Neck Exam: Full ROM. absent: Meningismus - Respiratory Exam Respiratory Exam: Rales, Rhonchi, Wheezes on High Flow Oxygen - Cardiovascular Exam Cardiovascular Exam: REGULAR RHYTHM, +S1, +S2 - GI/Abdominal Exam GI & Abdominal Exam: Soft, Normal Bowel Sounds. absent: Tenderness - Extremities Exam Extremities Exam: Normal Capillary Refill, Pedal Edema. absent: Calf Tenderness - Back Exam Back Exam: absent: CVA tenderness (L), CVA tenderness (R) - Neurological Exam Neurological Exam: Awake Assessment and Plan - Assessment and Plan (Free Text) Plan: 51 y/o female with COPD , fatty liver, Chronic ETOH abuse ( daily 8 cups of 8 ounce vodka ) , smoker , chronic lower back pain brought to ER for evaluation by EMS for facial and lower extremity swelling , SOB and lower back pain. As per patient she has some baseline SOB with ambulation and has chronic lower back pain . Pt was having some lower back pain for which she took some Motrin and Advil PM. and when she woke up she noticed her face and eyes to be swollen and her lower extremities were swollen as well. She could not get out of bed and was having significant back pain . In the ED , was found to be in respiratory distress,with dyspnea RR 35 O2sat 94 %, slightly hypotensive BP 96/65 tachycardic HR 122. She was given 2 Duonebs in the field, 125 mg IV solumedrol in ER , started on IVF and placed on High Flow O2 ,20 LPM FIO2 60 % Her ABG showed PO2 70 PCO2 35 pH 7.38 . CXR showed bilateral infiltrates worse on the right WBC found to be elevated 16.8 Hgb 10 BUN/Cr 20/1.4 rigoberto 6.6 ASt / ALT 150/26 lactic acid 2.6 ETOH levels 73 Physical exam significant for tremors , increased work of breathing , periorbital, facial and lower extremity edema, her breath smelled of alcohol. She was admitted in ICU for close monitoring and treatment, she improved and was transferred to telemetry but became very agitated , restless , confused , tachypneic and tachycardic and so was transferred back to ICU for close monitoring. She was placed on High Flow Oxygen and started on Precedex drip. She now feels better and is saturating well on Nasal cannula. She is for transfer to telemetry today. Attempted to get intouch with her PMD - DR Sidney Suarez - on vacation, will be back Feb 21 1. Severe Sepsis- resolving Most likely secondary to multifocal pneumonia patient was hypotensive,tachycardic,hypoxemic with WBC 16.8 and CXR showing bilateral infiltrates, lactate 2.6 on admission Sputum cx positive for yeast Nasal cannula 2 liters Downgrade today to telemetry floor WBC trending down from 18 K -- 16 K Continue Duonebs, IV vanco , Zosyn, and Diflucan , completed IV Azithro x 10 days ID consulted: Dr Escalera 2.Acute hypoxemic and hypercarbic respiratory failure Most likely secondary to multi lobar Pneumonia and COPD exacerbation . Became more lethargic possibly secondary to Fentanyl patch and librium with RR 7-9 . Narcan was given ,fentanyl patch removed and Librium dose decreased Off PreCedex drip since 02/04 @ 6 AM On High Flow Oxygen repeat CXR showed vascular congestion . Lasix was given Continue Duonebs ,decrease Solumedrol IV 20 mg Q12 Pulmonary and ID consulted Continue IV antibiotics, vanco, Zosyn , Diflucan and and Duonebs 3. Multifocal Pneumonia ID and pulmonary consulted on Vanco, Zosyn, and Diflucan Sputum cx growing yeast CXR showed improved infiltrates patient is a long time smoker so will need to follow up resolution of infiltrates to rule out any underlying malignancy 4. Facial and lower extremity edema unclear etiology of facial edema , resolved TSH : normal Given Solumedrol 125mg , Benadry and Pepcid LE venous doppler negative for DVT Echo showed normal LVF EF 65 -70 % given lasix Edema sec to liver dis ? 5. ETOH abuse / Delirium Tremens/Delirium was started on Precedex drip in ICU for being agitated , restless and has been off drip since 6 Am 12 On Librium , taper off continue Thiamine, Folic acid Ativan PRN Seizure precautions/ withdrawal precautions psych consulted rec Risperdal or Haldol for agitation 6. SUNDAR improved no prior records and unknown baseline renal function improved 7.COPD exacerbation-- improved Duonebs , high flow pulmonary consulted counseled on smoking decreased solumedrol 20 mg IV Q12 8. Alcohol Liver Dis Bill 6.6 AST 150 on admission. rigoberto trending down to 2.9, afebrile CT chest showed hepatomegaly , fatty infiltration , some ascitic fluid and umbilical vein recannulization significant for portal hypertension \ US showed: Hepatomegaly with steatosis.Trace perihepatic ascites.Nonspecific gallbladder wall thickening. Gallbladder wall thickening is a nonspecific finding which can be seen with ascites, hepatitis, cholecystitis,CHF or hypoproteinemic states. patient has no abdominal pain , no fever , no signs of cholecystitis Continue monitoring 9. Chronic Lower back pain likely sec to Compression Frcatures Ct chest also showed mild chronic compression fracture in mid thoracic spine Multiple attempts made to have pt go for CT of [place] and T spine however pt could not tolerate and could not remain still for the procedure - finally went today - CT of the spine showed Acute Thoracic and Lumbar spine compression fractures Neurosurgery consulted- rec to do MRI of the spine Pain management consulted Unable to stay still for CT lumbar and thoracic spine 02/04- will reattempt today Will hold off on PT for now , Hold Lovenox ,as pt may need procedure, hold Toradol ? Kyphoplasty Lidoderm patch 10.Anemia unclear etiology Normal Iron and B12 level cont Thiamine 11. Smoker on nicotine patch 12 Thrombocytopenia, improved unclear if sec to alcohol vs meds - Zosyn HIT : negative restarted Lovenox now that platelet is normal and HIT negative 13. DVT prophylaxis GI prophylaxis Lovenox - hold in am , as pt may need to go for ? Kyphoplasty Pepcid
--- NOTE | 2017-02-10 13:59 | PQF GENQUE ---
This form is a permanent part of the medical record 02/10/17 Dr. Roberson, After workup would you please clarify the possible cause of the compression fractures if known. Admitted with respiratory distress and has chronic lower back pain. LUMBAR CT: Suspect acute osteoporotic superior endplate compression fracture in the L3 vertebral body. DDD. THORACIC CT: Acute superior endplate compression fracture in the T7 vertebral body with approximately 50% loss of vertebral height. Acute superior endplate compression fracture in the T10 vertebral body. Age indeterminate superior endplate compression fractures T6 and T12 vertebral bodies. Clarification of your documentation is requested to better reflect the severity of illness and intensity of treatment of your patient. Indicators present [] Specify: [] [] Specify: [] [] Specify: [] [] Specify: [] Location in the medical record that reflects the above clinical findings: [] Treatment Provided: [] PHYSICIAN'S RESPONSE Cause of compression fractures: [] Traumatic [X] Non Traumatic [] Pathological [] Other please specify: [] Clinically unable to determine [X] Unknown likely chronic Based on your medical judgment of the clinical indicators outlined above please clarify the following: [X] Practitioner response [] If unable to determine, please check the box, sign and date. Present On Admission (POA) Indicator: [X] Present at the time of admission [] Not present at the time of admission [] Clinically Undetermined In responding to this query, please exercise your independent professional judgment. The fact that a question is asked does not imply that any particular answer is desired or expected. Thank you for your clarification on this documentation. If you have any questions please call:extension [phone] * Thank you, Yasmine Kinsey RN CD[facility]
[2017-02-10] MEDS: acetaZOLAMIDE 500 mg SR Cap PO SCH (14:32)
[2017-02-10] MEDS ORDERED: Albuterol-Ipratrop 3 mg / 0.5 (3 ml) UD INH STA (18:27)
[2017-02-11] MEDS: Piperacillin/Tazobact 3.375 GM in Sodium Chloride 0.9% 100 ML IVPB SCH ×3 (00:25→16:38)
[2017-02-11] MEDS: Albuterol-Ipratrop 3 mg / 0.5 (3 ml) UD INH SCH ×7 (00:31→23:10)
[2017-02-11 06:39] LABS: HEMATOCRIT 27.6 % (34.0-47.0); MEAN CELL VOLUME 105.9 fl (81.0-99.0); MEAN CORPUSCULAR HEMOGLOBIN 35.2 pg (27.0-31.0); MEAN CORPUSCULAR HGB CONC 33.2 g/dL (33.0-37.0); RED CELL DISTRIBUTION WIDTH 17.5 % (11.5-14.5); WHITE BLOOD COUNT 14.9 K/uL (4.8-10.8)
[2017-02-11 06:49] LABS: BLOOD UREA NITROGEN 24 mg/dl (7-17); CALCIUM 9.3 mg/dL (8.4-10.2); CARBON DIOXIDE 38 mmol/L (22-30); CHLORIDE 95 mmol/L (98-107); GFR AFRICAN-AMERICAN > 60; GLUCOSE,RANDOM 95 mg/dL (65-105); POTASSIUM 3.7 MMOL/L (3.6-5.0); SODIUM 138 mmol/l (132-148)
[2017-02-11] MEDS: Vancomycin 1 GM in Dextrose 5% In Water 250 ML IVPB SCH (11:48)
[2017-02-11] MEDS: Fluconazole IV 100mg/50 ml NS 50 ML IVPB SCH (11:48)
[2017-02-11] MEDS: Multivitamin With Minerals Tab PO SCH (11:49)
[2017-02-11] MEDS: Morphine 15 mg SR Tab PO SCH ×2 (11:49→22:20)
[2017-02-11] MEDS: Fluticasone-Salmeterol 250-50mcg Diskus IH SCH ×2 (11:50→21:54)
[2017-02-11] MEDS: Lidocaine 5% Patch TD SCH (11:50)
[2017-02-11] MEDS: acetaZOLAMIDE 500 mg SR Cap PO SCH (11:50)
--- NOTE | 2017-02-11 12:51 | MRI ---
PROCEDURE: MR LUMBAR SPINE WITHOUT CONTRAST HISTORY: compression fractures COMPARISON: Comparison made with prior CT scan lumbar spine 02/09/2017. TECHNIQUE: Multiecho multiplanar sequences were performed through the lumbar spine without the use of intravenous contrast. FINDINGS: The current study reveals no acute compression fractures no retropulsed fragments. . Mild chronic appearing anterior stature loss of the T12 segment. Mild fish-mouth chronic appearing fish-mouth endplate deformities are seen at several levels. Additionally, there is exuberant type 2 discogenic sclerosis involving the L4-L5 endplates. No retropulsed fragments. No evidence of malalignment. T12-L1: The Mild age related disc desiccation. No disc herniation or significant disc bulge. Facets are mild to moderately hypertrophic. Central canal and exit foramina are adequate. L1-2: Mild age related disc desiccation. No disc herniation or significant disc bulge. Facets are mild to moderately hypertrophic. Central canal and exit foramina are adequate. L2-3: Mild age related disc desiccation. No disc herniation or significant disc bulge. Facets are mild to moderately hypertrophic. Central canal and exit foramina are adequate. L3-4: There is mild age related disc desiccation. Disc space height maintained. No disc herniation or significant disc bulge. L4-5: At the L4-L5 level, there is disc desiccation, disc space narrowing with cortical endplate irregularity and as mentioned above, exuberant type 2 discogenic sclerosis. Small asymmetric disc ridge complex results in some flattening of the ventral surface of the thecal sac however the overall central canal appears marginal to adequate. Facet joints are hypertrophic. Exit foramina are adequate despite encroaching disc ridge complex and hypertrophic facets. . L5-S1: Mild disc desiccation. Disc space heights relatively maintained. Cortical endplate irregularity. Small of central bulge of the posterior annulus is present. Central canal is quite capacious. Facets are mildly hypertrophic. Exit foramina are adequate. OTHER FINDINGS: None. IMPRESSION: Chronic anterior wedge deformity T12 segment. No acute compression fractures however there are mild chronic appearing fish-mouth endplate deformities at several levels. Multilevel degenerative spondylosis notably affecting most notably affecting the L4-L5 level as above.
--- NOTE | 2017-02-11 13:02 | MRI ---
PROCEDURE: MR THORACIC SPINE WITHOUT CONTRAST HISTORY: compression fracrtures COMPARISON: Thoracic spine CT 02/09/2017. TECHNIQUE: Multiecho multiplanar sequences were performed through the thoracic spine without the use of intravenous contrast. FINDINGS: ALIGNMENT: Mildly hyper kyphotic deformity of the thoracic spine is appreciated at its superior segment due to probable subacute anterior wedge compression fracture at T7 with a chronic anterior wedge compression fracture T6 with both appearing moderate. Further, there is a but more internal compression fracture at T10 with edema seen immediately inferior to the upper endplate, similar to that at T7. No retropulsion of fracture fragments is appreciable once again. There is no spondylolisthesis appreciated in the interval either. A chronic T12 minimal anterior wedge compression fractures appreciated once again. Overall Marrow signal is remarkable only for the aforementioned sub endplate edema and a few benign hemangiomas at the T8, T10 and T11 vertebral bodies. Prevertebral paraspinal soft tissues appear unremarkable with the conus medullaris terminating at the L1 vertebral body level. The thoracic spinal cord appears normal in intrinsic signal throughout as well as overall volume. DISCS: No large disc herniation or significant central canal stenosis appreciated throughout the examination. No prominent neural foraminal stenosis. Note is made of an asymmetric minimal disc bulge or tiny left lateral disc protrusion at the T8-9 level towards the left. OTHER FINDINGS: None. IMPRESSION: 1. Likely subacute moderate compression fracture of T7 and minimally at T10 both the which exhibit anterior wedging and limited edema at the upper segments of the vertebral bodies deep to the endplates without stenosis resulting. No disc herniation the level surrounding these vertebral bodies. No spondylolisthesis. 2. Chronic compression fractures are identified at T6 and T12, moderate and minimal respectively. 3. Tiny left lateral disc protrusion T8-9 versus asymmetric disc bulge without stenosis resulting.
--- NOTE | 2017-02-11 13:23 | CP.PCM.PN ---
Subjective - Date & Time of Evaluation Date of Evaluation: 02/11/17 Time of Evaluation: 09:00 - Subjective Subjective: weak and bedridden but less irritable no fever Objective - Vital Signs/Intake and Output Vital Signs (last 24 hours): Temp Pulse Resp BP Pulse Ox 98.8 F 93 H 18 99/62 L 93 L 02/11/17 08:00 02/11/17 08:00 02/11/17 08:00 02/11/17 08:00 02/11/17 08:00 Intake and Output: 02/11/17 02/11/17 06:59 18:59 Intake Total 340 Output Total 1000 Balance -660 - Medications Medications: Current Medications Acetaminophen (Tylenol 325mg Tab) 650 mg PO Q6H PRN PRN Reason: Pain, Mild (1-3) Acetaminophen (Tylenol 325mg Tab) 650 mg PO Q6H PRN PRN Reason: Fever >100.4 F Acetazolamide (Diamox Sequels 500 Mg Sr Cap) 500 mg PO DAILY [facility] Last Admin: 02/11/17 11:50 Dose: Not Given Albuterol/Ipratropium (Duoneb 3 Mg/0.5 Mg (3 Ml) Ud) 3 ml INH RQ4 [facility] Last Admin: 02/11/17 11:36 Dose: 3 ml Docusate Sodium (Colace) 100 mg PO BID PRN PRN Reason: Constipation Last Admin: 02/08/17 20:35 Dose: 100 mg Enoxaparin Sodium (Lovenox) 40 mg SC DAILY [facility] PRN Reason: Protocol Last Admin: 02/09/17 08:46 Dose: 40 mg Folic Acid (Folic Acid) 1 mg PO DAILY [facility] Last Admin: 02/11/17 11:50 Dose: Not Given Fluconazole (Diflucan Iv 100 Mg/50 Ml Ns) 50 mls @ 50 mls/hr IVPB DAILY [facility] PRN Reason: Protocol Last Admin: 02/11/17 11:48 Dose: 50 mls/hr Piperacillin Sod/Tazobactam (Sod 3.375 gm/ Sodium Chloride) 100 mls @ 100 mls/ hr IVPB Q8 [facility] PRN Reason: Protocol Last Admin: 02/11/17 10:46 Dose: 100 mls/hr Vancomycin HCl 1 gm/ Dextrose 250 mls @ 166.667 mls/hr IVPB DAILY [facility] PRN Reason: Protocol Last Admin: 02/11/17 11:48 Dose: 166.667 mls/hr Lidocaine (Lidoderm) 1 ea TD DAILY [facility] Last Admin: 02/11/17 11:50 Dose: Not Given Lorazepam (Ativan) 1 mg PO TID PRN PRN Reason: Agitation Last Admin: 02/09/17 00:27 Dose: 1 mg Morphine Sulfate (Morphine Extended Release Tab) 15 mg PO Q12 [facility] Last Admin: 02/11/17 11:49 Dose: Not Given Multivitamins/Minerals (Therapeutic-M Tab) 1 tab PO DAILY [facility] Last Admin: 02/11/17 11:49 Dose: Not Given Nicotine (Nicoderm Cq) 1 patch TD DAILY [facility] Last Admin: 02/10/17 08:56 Dose: 1 patch Ondansetron HCl (Zofran Inj) 4 mg IVP Q6H PRN PRN Reason: Nausea/Vomiting Risperidone (Risperdal Tab) 0.5 mg PO Q12 PRN PRN Reason: Agitation Last Admin: 02/08/17 16:11 Dose: 0.5 mg Fluticasone/Salmeterol (Advair Diskus 250/50) 1 puff IH Q12 [facility] Last Admin: 02/11/17 11:50 Dose: Not Given Thiamine HCl (Vitamin B1 Tab) 100 mg PO DAILY [facility] Last Admin: 02/11/17 11:49 Dose: Not Given - Labs Labs: 02/11/17 06:15 02/11/17 06:15 PT 17.3 Seconds (9.8-13.1) H 02/09/17 11:55 INR 1.5 (0.9-1.2) H 02/09/17 11:55 APTT 19.7 Seconds (25.6-37.1) L 02/09/17 11:55 - Constitutional Appears: Non-toxic, Chronically Ill - Head Exam Head Exam: NORMOCEPHALIC - Eye Exam Eye Exam: PERRL - ENT Exam ENT Exam: Mucous Membranes Dry - Neck Exam Neck Exam: absent: Lymphadenopathy, Thyromegaly - Respiratory Exam Respiratory Exam: Decreased Breath Sounds - Cardiovascular Exam Cardiovascular Exam: REGULAR RHYTHM, +S1, +S2 - GI/Abdominal Exam GI & Abdominal Exam: Distended, Soft. absent: Tenderness - Rectal Exam Rectal Exam: Deferred - Exam Exam: NORMAL INSPECTION - Extremities Exam Extremities Exam: absent: Pedal Edema - Back Exam Back Exam: absent: CVA tenderness (L), CVA tenderness (R) - Neurological Exam Neurological Exam: Awake, CN II-XII Intact - Psychiatric Exam Psychiatric exam: Depressed - Skin Skin Exam: Dry Assessment and Plan (1) Bilateral pneumonia Status: Acute (2) COPD exacerbation Status: Acute (3) Respiratory distress Status: Acute (4) Severe sepsis Status: Acute (5) Alcohol abuse Status: Acute
--- NOTE | 2017-02-11 14:52 | CP.PCM.PN ---
Subjective - Date & Time of Evaluation Date of Evaluation: 02/11/17 Time of Evaluation: 11:00 - Subjective Subjective: Patient seen and examined bedside. Lethagic,more confused than yesterday , lying in bed , responding to verbal commands. Obese, no acute distress With episode of urinary retention yesterday and today . Bp 117/35 HR 61 afebrile RR 18 saturating 96- 94 5 on 2 L O2 via NC ABG PCO2 61 / PO@ 75 / 37 /7.45. WBC 14 K Hgb 9.2 plt 76 MRi thoracic and lumbar spine showed subacute moderate compression fracture of T7 ( see report for details) Objective - Vital Signs/Intake and Output Vital Signs (last 24 hours): Temp Pulse Resp BP Pulse Ox 97.3 F L 61 18 117/68 96 02/11/17 13:35 02/11/17 13:35 02/11/17 13:35 02/11/17 13:35 02/11/17 13:35 Intake and Output: 02/11/17 02/11/17 06:59 18:59 Intake Total 340 Output Total 1000 Balance -660 - Medications Medications: Current Medications Acetaminophen (Tylenol 325mg Tab) 650 mg PO Q6H PRN PRN Reason: Pain, Mild (1-3) Acetaminophen (Tylenol 325mg Tab) 650 mg PO Q6H PRN PRN Reason: Fever >100.4 F Acetazolamide (Diamox Sequels 500 Mg Sr Cap) 500 mg PO DAILY [facility] Last Admin: 02/11/17 11:50 Dose: Not Given Albuterol/Ipratropium (Duoneb 3 Mg/0.5 Mg (3 Ml) Ud) 3 ml INH RQ4 [facility] Last Admin: 02/11/17 11:36 Dose: 3 ml Docusate Sodium (Colace) 100 mg PO BID PRN PRN Reason: Constipation Last Admin: 02/08/17 20:35 Dose: 100 mg Enoxaparin Sodium (Lovenox) 40 mg SC DAILY [facility] PRN Reason: Protocol Last Admin: 02/09/17 08:46 Dose: 40 mg Folic Acid (Folic Acid) 1 mg PO DAILY [facility] Last Admin: 02/11/17 11:50 Dose: Not Given Fluconazole (Diflucan Iv 100 Mg/50 Ml Ns) 50 mls @ 50 mls/hr IVPB DAILY [facility] PRN Reason: Protocol Last Admin: 02/11/17 11:48 Dose: 50 mls/hr Piperacillin Sod/Tazobactam (Sod 3.375 gm/ Sodium Chloride) 100 mls @ 100 mls/ hr IVPB Q8 [facility] PRN Reason: Protocol Last Admin: 02/11/17 10:46 Dose: 100 mls/hr Vancomycin HCl 1 gm/ Dextrose 250 mls @ 166.667 mls/hr IVPB DAILY [facility] PRN Reason: Protocol Last Admin: 02/11/17 11:48 Dose: 166.667 mls/hr Lidocaine (Lidoderm) 1 ea TD DAILY [facility] Last Admin: 02/11/17 11:50 Dose: Not Given Lorazepam (Ativan) 1 mg PO TID PRN PRN Reason: Agitation Last Admin: 02/09/17 00:27 Dose: 1 mg Morphine Sulfate (Morphine Extended Release Tab) 15 mg PO Q12 [facility] Last Admin: 02/11/17 11:49 Dose: Not Given Multivitamins/Minerals (Therapeutic-M Tab) 1 tab PO DAILY [facility] Last Admin: 02/11/17 11:49 Dose: Not Given Nicotine (Nicoderm Cq) 1 patch TD DAILY [facility] Last Admin: 02/10/17 08:56 Dose: 1 patch Ondansetron HCl (Zofran Inj) 4 mg IVP Q6H PRN PRN Reason: Nausea/Vomiting Risperidone (Risperdal Tab) 0.5 mg PO Q12 PRN PRN Reason: Agitation Last Admin: 02/08/17 16:11 Dose: 0.5 mg Fluticasone/Salmeterol (Advair Diskus 250/50) 1 puff IH Q12 [facility] Last Admin: 02/11/17 11:50 Dose: Not Given Thiamine HCl (Vitamin B1 Tab) 100 mg PO DAILY [facility] Last Admin: 02/11/17 11:49 Dose: Not Given - Labs Labs: 02/11/17 06:15 02/11/17 06:15 PT 17.3 Seconds (9.8-13.1) H 02/09/17 11:55 INR 1.5 (0.9-1.2) H 02/09/17 11:55 APTT 19.7 Seconds (25.6-37.1) L 02/09/17 11:55 - Constitutional Appears: No Acute Distress, Chronically Ill, Other (obese, lethargic, confused ) - Head Exam Head Exam: ATRAUMATIC, NORMOCEPHALIC - Eye Exam Eye Exam: PERRL - ENT Exam ENT Exam: Mucous Membranes Moist, Normal Exam - Neck Exam Neck Exam: Normal Inspection - Respiratory Exam Respiratory Exam: Prolonged Expiratory Phase, Wheezes (scattered expiratory wheezing ). absent: Respiratory Distress - Cardiovascular Exam Cardiovascular Exam: Tachycardia, +S1, +S2. absent: JVD - GI/Abdominal Exam GI & Abdominal Exam: Soft, Normal Bowel Sounds. absent: Distended, Guarding, Tenderness, Rebound - Rectal Exam Rectal Exam: Deferred - Extremities Exam Extremities Exam: Normal Inspection, Pedal Edema (2 + ) - Neurological Exam Additional comments: lethargic, confused , moves all 4 extremities , responding to verbal commands - Psychiatric Exam Psychiatric exam: Anxious, Flat Affect - Skin Skin Exam: Dry, Pallor, Warm Assessment and Plan - Assessment and Plan (Free Text) Assessment: 51 y/o female with COPD , fatty liver, Chronic ETOH abuse ( daily 8 cups of 8 ounce vodka ) , smoker , chronic lower back pain brought to ER for evaluation by EMS for facial and lower extremity swelling , SOB and lower back pain. As per patient she has some baseline SOB with ambulation and has chronic lower back pain . Pt was having some lower back pain for which she took some Motrin and Advil PM. and when she woke up she noticed her face and eyes to be swollen and her lower extremities were swollen as well. She could not get out of bed and was having significant back pain . In the ED , was found to be in respiratory distress,with dyspnea RR 35 O2sat 94 %, slightly hypotensive BP 96/65 tachycardic HR 122. She was given 2 Duonebs in the field, 125 mg IV solumedrol in ER , started on IVF and placed on High Flow O2 ,20 LPM FIO2 60 % Her ABG showed PO2 70 PCO2 35 pH 7.38 . CXR showed bilateral infiltrates worse on the right WBC found to be elevated 16.8 Hgb 10 BUN/Cr 20/1.4 rigoberto 6.6 ASt / ALT 150/26 lactic acid 2.6 ETOH levels 73 Physical exam was significant for tremors , increased work of breathing , periorbital, facial and lower extremity edema, her breath smelled of alcohol. She was admitted in ICU for close monitoring and treatment, she improved and was transferred to telemetry but became very agitated , restless , confused , tachypneic and tachycardic and so was transferred back to ICU for close monitoring. She was placed on High Flow Oxygen and started on Precedex drip and later switched to librium and Ativan PRN. She became very lethargic so all sedation medications were stopped including pain medications. CT L-S spine showed DJD and some compression fractures that could be reason for her back pain. Anesthesiology,spine surgeon were consulted .Her mental confusion improved somewhat and was switched to NC maintaining her O2 sat and transferred to telemetry. Today appeas more lethargic and confused , maintaining her airway and oxygenation .With urinary retention today and yesterday requiring straight catheterization. MRI l-s spine performed Attempted to get intouch with her PMD - DR Sidney Suarez - on vacation, will be back Feb 21. Severe Sepsis- resolving Most likely secondary to multifocal pneumonia patient was hypotensive,tachycardic,hypoxemic with WBC 16.8 and CXR showing bilateral infiltrates, lactate 2.6 on admission Sputum cx positive for yeast Switched to 2 L NC yesterday but today appears more lethargic without any sedation . ABG showed PCO@ [address] back on high Flow O2 20 LPM FIO2 40 % Afebrile with WBC 14 K has been on Iv antibiotics since admission 01/27 . Will d/c diflucan, vanco and Zosyn completed IV Azithro x 10 days ID consulted: Dr Escalera 2.Acute hypoxemic and hypercarbic respiratory failure Most likely secondary to multi lobar Pneumonia and COPD exacerbation . Became more lethargic possibly secondary to Fentanyl patch and librium with RR 7-9 . Narcan was given ,fentanyl patch removed and Librium dose decreased Off PreCedex drip since 02/04 @ 6 AM Today again appears lethargic with PCO2 [address] again on High flow O2 Continue Duonebs Tappered off steroids , on advair INH Pulmonary and ID consulted Continue IV antibiotics, vanco, Zosyn , Diflucan and and Duonebs 3. Multifocal Pneumonia ID and pulmonary consulted Has been on Vanco, Zosyn, and Diflucan for 2 weeks . D/c all antibiotics Sputum cx positive for yeast CXR showed improved infiltrates patient is a long time smoker so will need to follow up resolution of infiltrates to rule out any underlying malignancy 4. Facial and lower extremity edema unclear etiology of facial edema , resolved TSH : normal Given Solumedrol 125mg , Benadry and Pepcid LE venous doppler negative for DVT Echo showed normal LVF EF 65 -70 % given lasix Edema sec to liver dis ? 5. ETOH abuse / Delirium Tremens/Delirium /alcoholic encephalopathy was started on Precedex drip in ICU for being agitated , restless and has been off drip since 02/04 tapered off Librium and only on Ativan PRN continue Thiamine, Folic acid Seizure precautions/ withdrawal precautions psych consulted rec Risperdal or Haldol for agitation Still confused and lethargic today 6. SUNDAR improved no prior records and unknown baseline renal function improved 7.COPD exacerbation-- improved continue Duonebs change back to high flow pulmonary consulted counseled on smoking tapered of solumedrol 8. Alcohol Liver Dis Bill 6.6 AST 150 on admission. rigoberto trending down to 2.9, afebrile CT chest showed hepatomegaly , fatty infiltration , some ascitic fluid and umbilical vein recannulization significant for portal hypertension \ US showed: Hepatomegaly with steatosis.Trace perihepatic ascites.Nonspecific gallbladder wall thickening. Gallbladder wall thickening is a nonspecific finding which can be seen with ascites, hepatitis, cholecystitis,CHF or hypoproteinemic states. patient has no abdominal pain , no fever , no signs of cholecystitis Continue monitoring 9. Chronic Lower back pain likely sec to Compression Fractures Ct chest also showed mild chronic compression fracture in mid thoracic spine Multiple attempts made to have pt go for CT of [place] and T spine however pt could not tolerate and could not remain still for the procedure - finally went - CT of the spine showed Acute Thoracic and Lumbar spine compression fractures Neurosurgery consulted Pain management consulted and started on Morphine and lidoderm patch MRI spine showed no acute fracture or significant disc protrusion As per neurosurgery continue PT and pain management With urinary retention x2 . will discuss with IR for possible kyphoplasty 10.Anemia unclear etiology Normal Iron and B12 level cont Thiamine 11. Smoker on nicotine patch 12 Thrombocytopenia, unclear if sec to alcohol vs meds - Zosyn HIT : negative d/c Lovenox 13.Urinary retention unclear etiology most likely secondary to immobility, pain medication,pain Straight cath placed x 2 with 1000 ml call urology consult if need to place soria 14. DVT prophylaxis GI prophylaxis d/c lovenox due to thrombocytopenia Pepcid
[2017-02-11 14:57] LABS: ABG ALLEN TEST YES; ARTERIAL BLOOD GAS HCO3 37.6 mmol/L (21-28); ARTERIAL BLOOD GAS O2 CAPACITY 12.3 mL/dL (16-24); ARTERIAL BLOOD GAS O2 CONTENT 12.1 ML/dL (15-23); ARTERIAL BLOOD GAS PH 7.45 (7.35-7.45); ARTERIAL BLOOD GAS PO2 75 mm/Hg (80-100); ARTERIAL BLOOD HGB O2 SAT 93.7 % (95.0-98.0); DRAW SITE rr; HHB 1.9 % (0.0-5.0); METHEMOGLOBIN 1.4 % (0.0-3.0)
[2017-02-12] MEDS: Albuterol-Ipratrop 3 mg / 0.5 (3 ml) UD INH SCH ×5 (04:39→19:27)
[2017-02-12 07:39] LABS: HEMATOCRIT 27.7 % (34.0-47.0); MEAN CELL VOLUME 107.3 fl (81.0-99.0); MEAN CORPUSCULAR HGB CONC 32.6 g/dL (33.0-37.0); RED CELL DISTRIBUTION WIDTH 17.8 % (11.5-14.5); WHITE BLOOD COUNT 11.8 K/uL (4.8-10.8)
[2017-02-12 08:07] LABS: BLOOD UREA NITROGEN 19 mg/dl (7-17); CALCIUM 9.3 mg/dL (8.4-10.2); CARBON DIOXIDE 36 mmol/L (22-30); CHLORIDE 95 mmol/L (98-107); GFR AFRICAN-AMERICAN > 60; GLUCOSE,RANDOM 88 mg/dL (65-105); POTASSIUM 3.5 MMOL/L (3.6-5.0); SODIUM 138 mmol/l (132-148)
[2017-02-12] MEDS: Multivitamin With Minerals Tab PO SCH (08:53)
[2017-02-12] MEDS: Fluticasone-Salmeterol 250-50mcg Diskus IH SCH ×2 (08:53→20:28)
[2017-02-12] MEDS: acetaZOLAMIDE 500 mg SR Cap PO SCH (08:53)
[2017-02-12] MEDS: Morphine 15 mg SR Tab PO SCH ×2 (08:54→20:26)
[2017-02-12] MEDS: Lidocaine 5% Patch TD SCH (08:54)
[2017-02-12] MEDS ORDERED: Potassium Chloride 20 mEq ER Tab PO ONE (10:53)
--- NOTE | 2017-02-12 11:24 | CP.PCM.PN ---
Subjective - Date & Time of Evaluation Date of Evaluation: 02/12/17 Time of Evaluation: 11:00 - Subjective Subjective: Patient was seen and examined at bedside. She is more lethargic today than when I have previously seen her. However she is responsive to questions and answers appropriately. She has no complaints this morning. Vitals stable. Objective - Vital Signs/Intake and Output Vital Signs (last 24 hours): Temp Pulse Resp BP Pulse Ox 97.8 F 91 H 20 103/63 93 L 02/12/17 08:00 02/12/17 08:00 02/12/17 08:00 02/12/17 08:00 02/12/17 08:00 - Medications Medications: Current Medications Acetaminophen (Tylenol 325mg Tab) 650 mg PO Q6H PRN PRN Reason: Pain, Mild (1-3) Acetaminophen (Tylenol 325mg Tab) 650 mg PO Q6H PRN PRN Reason: Fever >100.4 F Acetazolamide (Diamox Sequels 500 Mg Sr Cap) 500 mg PO DAILY [facility] Last Admin: 02/12/17 08:53 Dose: 500 mg Albuterol/Ipratropium (Duoneb 3 Mg/0.5 Mg (3 Ml) Ud) 3 ml INH RQ4 [facility] Last Admin: 02/12/17 07:56 Dose: 3 ml Docusate Sodium (Colace) 100 mg PO BID PRN PRN Reason: Constipation Last Admin: 02/08/17 20:35 Dose: 100 mg Enoxaparin Sodium (Lovenox) 40 mg SC DAILY [facility] PRN Reason: Protocol Last Admin: 02/09/17 08:46 Dose: 40 mg Folic Acid (Folic Acid) 1 mg PO DAILY [facility] Last Admin: 02/12/17 08:53 Dose: 1 mg Lidocaine (Lidoderm) 1 ea TD DAILY [facility] Last Admin: 02/12/17 08:54 Dose: 1 ea Morphine Sulfate (Morphine Extended Release Tab) 15 mg PO Q12 [facility] Last Admin: 02/12/17 08:54 Dose: Not Given Multivitamins/Minerals (Therapeutic-M Tab) 1 tab PO DAILY [facility] Last Admin: 02/12/17 08:53 Dose: 1 tab Nicotine (Nicoderm Cq) 1 patch TD DAILY [facility] Last Admin: 02/12/17 08:54 Dose: 1 patch Ondansetron HCl (Zofran Inj) 4 mg IVP Q6H PRN PRN Reason: Nausea/Vomiting Risperidone (Risperdal Tab) 0.5 mg PO Q12 PRN PRN Reason: Agitation Last Admin: 02/08/17 16:11 Dose: 0.5 mg Fluticasone/Salmeterol (Advair Diskus 250/50) 1 puff IH Q12 [facility] Last Admin: 02/12/17 08:53 Dose: Not Given Thiamine HCl (Vitamin B1 Tab) 100 mg PO DAILY [facility] Last Admin: 02/12/17 08:54 Dose: 100 mg - Labs Labs: 02/12/17 05:30 02/12/17 05:30 PT 17.3 Seconds (9.8-13.1) H 02/09/17 11:55 INR 1.5 (0.9-1.2) H 02/09/17 11:55 APTT 19.7 Seconds (25.6-37.1) L 02/09/17 11:55 - Additional Findings Additional findings: -Constitutional Appears: Unkempt, Chronically Ill. Lethargic but arousable to voice - Head Exam Head Exam: NORMOCEPHALIC - Eye Exam Eye Exam: EOMI Pupil Exam: NORMAL ACCOMODATION - ENT Exam ENT Exam: Mucous Membranes Dry, Normal External Ear Exam - Neck Exam Neck Exam: Full ROM. absent: Meningismus - Respiratory Exam Respiratory Exam: Rales, Rhonchi, Wheezes on High Flow Oxygen - Cardiovascular Exam Cardiovascular Exam: REGULAR RHYTHM, +S1, +S2 - GI/Abdominal Exam GI & Abdominal Exam: Soft, Normal Bowel Sounds. absent: Tenderness - Extremities Exam Extremities Exam: Normal Capillary Refill, Pedal Edema. absent: Calf Tenderness - Back Exam Back Exam: absent: CVA tenderness (L), CVA tenderness (R) - Neurological Exam Neurological Exam: Awake Assessment and Plan - Assessment and Plan (Free Text) Plan: 51 y/o female with COPD , fatty liver, Chronic ETOH abuse ( daily 8 cups of 8 ounce vodka ) , smoker , chronic lower back pain brought to ER for evaluation by EMS for facial and lower extremity swelling , SOB and lower back pain. As per patient she has some baseline SOB with ambulation and has chronic lower back pain . Pt was having some lower back pain for which she took some Motrin and Advil PM. and when she woke up she noticed her face and eyes to be swollen and her lower extremities were swollen as well. She could not get out of bed and was having significant back pain . In the ED , was found to be in respiratory distress,with dyspnea RR 35 O2sat 94 %, slightly hypotensive BP 96/65 tachycardic HR 122. She was given 2 Duonebs in the field, 125 mg IV solumedrol in ER , started on IVF and placed on High Flow O2 ,20 LPM FIO2 60 % Her ABG showed PO2 70 PCO2 35 pH 7.38 . CXR showed bilateral infiltrates worse on the right WBC found to be elevated 16.8 Hgb 10 BUN/Cr 20/1.4 rigoberto 6.6 ASt / ALT 150/26 lactic acid 2.6 ETOH levels 73 Physical exam was significant for tremors , increased work of breathing , periorbital, facial and lower extremity edema, her breath smelled of alcohol. She was admitted in ICU for close monitoring and treatment, she improved and was transferred to telemetry but became very agitated , restless , confused , tachypneic and tachycardic and so was transferred back to ICU for close monitoring. She was placed on High Flow Oxygen and started on Precedex drip and later switched to librium and Ativan PRN. She became very lethargic so all sedation medications were stopped including pain medications. CT L-S spine showed DJD and some compression fractures that could be reason for her back pain. Anesthesiology,spine surgeon were consulted .Her mental confusion improved somewhat and was switched to NC maintaining her O2 sat and transferred to telemetry. She continues to be more lathargic today, however she is maintaining her airway and oxygenation. Urinary retention yesterday requiring PRN straight cath. MRI l-s spine performed Attempted to get intouch with her PMD - DR Sidney Suarez - on vacation, will be back Feb 21 1. Severe Sepsis- resolving Most likely secondary to multifocal pneumonia patient was hypotensive,tachycardic,hypoxemic with WBC 16.8 and CXR showing bilateral infiltrates, lactate 2.6 on admission Sputum cx positive for yeast Switched to 2 L NC yesterday but today appears more lethargic without any sedation . Continue high Flow O2 20 LPM FIO2 40 % Afebrile, WBC decreased from 14.9 to 11.8 today. Completed antibiotic regimen ID consulted: Dr Escalera 2.Acute hypoxemic and hypercarbic respiratory failure Most likely secondary to multi lobar Pneumonia and COPD exacerbation . Became more lethargic possibly secondary to Fentanyl patch and librium with RR 7-9 . Narcan was given ,fentanyl patch removed and Librium dose decreased Off PreCedex drip since 02/04 @ 6 AM Today again appears lethargic with PCO2 [address] again on High flow O2 Continue Duonebs Tappered off steroids , on advair INH Pulmonary and ID consulted Continue IV antibiotics, vanco, Zosyn , Diflucan and and Duonebs 3. Multifocal Pneumonia ID and pulmonary consulted Has been on Vanco, Zosyn, and Diflucan for 2 weeks . D/c all antibiotics Sputum cx positive for yeast CXR showed improved infiltrates patient is a long time smoker so will need to follow up resolution of infiltrates to rule out any underlying malignancy 4. Facial and lower extremity edema unclear etiology of facial edema , resolved TSH : normal Given Solumedrol 125mg , Benadry and Pepcid LE venous doppler negative for DVT Echo showed normal LVF EF 65 -70 % given lasix Edema sec to liver dis ? 5. ETOH abuse / Delirium Tremens/Delirium /alcoholic encephalopathy was started on Precedex drip in ICU for being agitated , restless and has been off drip since 02/04 tapered off Librium and only on Ativan PRN continue Thiamine, Folic acid Seizure precautions/ withdrawal precautions psych consulted rec Risperdal or Haldol for agitation Still confused and lethargic today 6. SUNDAR- continuing to improve no prior records and unknown baseline renal function improved 7.COPD exacerbation-- improved continue Duonebs continue high flow pulmonary consulted counseled on smoking tapered of solumedrol 8. Alcohol Liver Dis Bill 6.6 AST 150 on admission. rigoberto trending down to 2.9, afebrile CT chest showed hepatomegaly , fatty infiltration , some ascitic fluid and umbilical vein recannulization significant for portal hypertension \ US showed: Hepatomegaly with steatosis.Trace perihepatic ascites.Nonspecific gallbladder wall thickening. Gallbladder wall thickening is a nonspecific finding which can be seen with ascites, hepatitis, cholecystitis,CHF or hypoproteinemic states. patient has no abdominal pain , no fever , no signs of cholecystitis Continue monitoring 9. Chronic Lower back pain likely sec to Compression Fractures Ct chest also showed mild chronic compression fracture in mid thoracic spine Multiple attempts made to have pt go for CT of [place] and T spine however pt could not tolerate and could not remain still for the procedure - finally went - CT of the spine showed Acute Thoracic and Lumbar spine compression fractures Neurosurgery consulted Pain management consulted and started on Morphine and lidoderm patch MRI spine showed no acute fracture or significant disc protrusion As per neurosurgery continue PT and pain management With urinary retention x2 . However, patient able to void spontaneously today without problem 10.Anemia unclear etiology Normal Iron and B12 level cont Thiamine 11. Smoker on nicotine patch 12 Thrombocytopenia, unclear if sec to alcohol vs meds - Zosyn HIT : negative d/c Lovenox 13.Urinary retention- resolved unclear etiology most likely secondary to immobility, pain medication,pain Straight cath placed x 2 with 1000 ml yesterday, now voiding spontaneously 14. DVT prophylaxis GI prophylaxis d/c lovenox due to thrombocytopenia Pepcid
[2017-02-12] MEDS ORDERED: Magnesium Hydroxide Susp 30 ml UD PO PRN (19:49)
[2017-02-13] MEDS: Albuterol-Ipratrop 3 mg / 0.5 (3 ml) UD INH SCH ×6 (00:22→19:35)
[2017-02-13 07:51] LABS: MEAN CELL VOLUME 106.8 fl (81.0-99.0); MEAN CORPUSCULAR HEMOGLOBIN 35.3 pg (27.0-31.0); RED CELL DISTRIBUTION WIDTH 18.1 % (11.5-14.5); WHITE BLOOD COUNT 9.7 K/uL (4.8-10.8)
[2017-02-13 08:06] LABS: BLOOD UREA NITROGEN 14 mg/dl (7-17); CALCIUM 8.9 mg/dL (8.4-10.2); CARBON DIOXIDE 33 mmol/L (22-30); CHLORIDE 97 mmol/L (98-107); GFR AFRICAN-AMERICAN > 60; GLUCOSE,RANDOM 96 mg/dL (65-105); MAGNESIUM 1.2 MG/DL (1.6-2.3); POTASSIUM 3.7 MMOL/L (3.6-5.0); SODIUM 135 mmol/l (132-148)
[2017-02-13] MEDS: Fluticasone-Salmeterol 250-50mcg Diskus IH SCH ×2 (09:38→22:05)
[2017-02-13] MEDS: Lidocaine 5% Patch TD SCH (09:38)
[2017-02-13] MEDS: acetaZOLAMIDE 500 mg SR Cap PO SCH (09:38)
[2017-02-13] MEDS: Morphine 15 mg SR Tab PO SCH ×2 (09:38→22:06)
[2017-02-13] MEDS: Multivitamin With Minerals Tab PO SCH (09:39)
--- NOTE | 2017-02-13 10:00 | CP.PCM.PN ---
Subjective - Date & Time of Evaluation Date of Evaluation: 02/13/17 Time of Evaluation: 09:00 - Subjective Subjective: Pt is lethargic this am- received MS Contin at 9pm and Riperdal at 12 MN opens eyes to tactile stimuli No fever Remains on High Flow Oxygen- Saturation 96% at 20 liter 40% FiO2 Objective - Vital Signs/Intake and Output Vital Signs (last 24 hours): Temp Pulse Resp BP Pulse Ox 98.3 F 90 20 119/72 99 02/13/17 08:00 02/13/17 08:00 02/13/17 08:03 02/13/17 08:00 02/13/17 08:00 - Medications Medications: Current Medications Acetaminophen (Tylenol 325mg Tab) 650 mg PO Q6H PRN PRN Reason: Pain, Mild (1-3) Acetaminophen (Tylenol 325mg Tab) 650 mg PO Q6H PRN PRN Reason: Fever >100.4 F Acetazolamide (Diamox Sequels 500 Mg Sr Cap) 500 mg PO DAILY [facility] Last Admin: 02/13/17 09:38 Dose: Not Given Albuterol/Ipratropium (Duoneb 3 Mg/0.5 Mg (3 Ml) Ud) 3 ml INH RQ4 [facility] Last Admin: 02/13/17 07:46 Dose: 3 ml Bisacodyl (Dulcolax) 10 mg DC DAILY PRN PRN Reason: Constipation Last Admin: 02/12/17 20:13 Dose: 10 mg Docusate Sodium (Colace) 100 mg PO BID PRN PRN Reason: Constipation Last Admin: 02/08/17 20:35 Dose: 100 mg Folic Acid (Folic Acid) 1 mg PO DAILY [facility] Last Admin: 02/13/17 09:38 Dose: Not Given Lidocaine (Lidoderm) 1 ea TD DAILY [facility] Last Admin: 02/13/17 09:38 Dose: Not Given Magnesium Hydroxide (Milk Of Magnesia) 30 ml PO DAILY PRN PRN Reason: Constipation Last Admin: 02/12/17 20:13 Dose: 30 ml Morphine Sulfate (Morphine Extended Release Tab) 15 mg PO Q12 [facility] Last Admin: 02/13/17 09:38 Dose: Not Given Multivitamins/Minerals (Therapeutic-M Tab) 1 tab PO DAILY [facility] Last Admin: 02/13/17 09:39 Dose: Not Given Nicotine (Nicoderm Cq) 1 patch TD DAILY [facility] Last Admin: 02/12/17 08:54 Dose: 1 patch Ondansetron HCl (Zofran Inj) 4 mg IVP Q6H PRN PRN Reason: Nausea/Vomiting Risperidone (Risperdal Tab) 0.5 mg PO Q12 PRN PRN Reason: Agitation Last Admin: 02/12/17 23:56 Dose: 0.5 mg Fluticasone/Salmeterol (Advair Diskus 250/50) 1 puff IH Q12 [facility] Last Admin: 02/13/17 09:38 Dose: Not Given Thiamine HCl (Vitamin B1 Tab) 100 mg PO DAILY [facility] Last Admin: 02/13/17 09:39 Dose: Not Given - Labs Labs: 02/13/17 06:30 02/13/17 06:30 PT 17.3 Seconds (9.8-13.1) H 02/09/17 11:55 INR 1.5 (0.9-1.2) H 02/09/17 11:55 APTT 19.7 Seconds (25.6-37.1) L 02/09/17 11:55 - Constitutional Appears: Unkempt, Chronically Ill - Head Exam Head Exam: NORMOCEPHALIC - Eye Exam Eye Exam: EOMI Pupil Exam: NORMAL ACCOMMODATION - ENT Exam ENT Exam: Mucous Membranes Dry, Normal External Ear Exam - Neck Exam Neck Exam: Full ROM. absent: Meningismus - Respiratory Exam Respiratory Exam: + Rales, Rhonchi, Wheezes on High Flow Oxygen - Cardiovascular Exam Cardiovascular Exam: REGULAR RHYTHM, +S1, +S2 - GI/Abdominal Exam GI & Abdominal Exam: Soft, Normal Bowel Sounds. absent: Tenderness - Extremities Exam Extremities Exam: Normal Capillary Refill, Pedal Edema. absent: Calf Tenderness - Back Exam Back Exam: absent: CVA tenderness (L), CVA tenderness (R) - Neurological Exam Neurological Exam: Awake Additional comments: lethargic moves all extremities - Psychiatric Exam Psychiatric exam: Pt is lethargic u- unable to assess - Skin Skin Exam: Dry, Normal Color, Warm Assessment and Plan - Assessment and Plan (Free Text) Assessment: 51 y/o female with COPD , fatty liver, Chronic ETOH abuse ( daily 8 cups of 8 ounce vodka ) , smoker , chronic lower back pain brought to ER for evaluation by EMS for facial and lower extremity swelling , SOB and lower back pain. As per patient she has some baseline SOB with ambulation and has chronic lower back pain . Pt was having some lower back pain for which she took some Motrin and Advil PM. and when she woke up she noticed her face and eyes to be swollen and her lower extremities were swollen as well. She could not get out of bed and was having significant back pain . In the ED , was found to be in respiratory distress,with dyspnea RR 35 O2sat 94 %, slightly hypotensive BP 96/65 tachycardic HR 122. She was given 2 Duonebs in the field, 125 mg IV solumedrol in ER , started on IVF and placed on High Flow O2 ,20 LPM FIO2 60 % Her ABG showed PO2 70 PCO2 35 pH 7.38 . CXR showed bilateral infiltrates worse on the right WBC found to be elevated 16.8 Hgb 10 BUN/Cr 20/1.4 rigoberto 6.6 ASt / ALT 150/26 lactic acid 2.6 ETOH levels 73 Physical exam was significant for tremors , increased work of breathing , periorbital, facial and lower extremity edema, her breath smelled of alcohol. She was admitted in ICU for close monitoring and treatment, she improved and was transferred to telemetry but became very agitated , restless , confused , tachypneic and tachycardic and so was transferred back to ICU for close monitoring. She was placed on High Flow Oxygen and started on Precedex drip and later switched to librium and Ativan PRN. She became very lethargic so all sedation medications were stopped including pain medications. CT L-S spine showed DJD and some compression fractures that could be reason for her back pain. Anesthesiology,spine surgeon were consulted . Her confusion improved somewhat and was switched to NC maintaining her O2 sat and transferred to telemetry. Today appears more lethargic, on High Flow Oxygen . MRI of thoracic and Lumbar spine: Compression fractures Attempted to get in touch with her PMD - DR Sidney Suarez - on vacation, will be back Feb 21 1. Severe Sepsis- resolving Most likely secondary to multifocal pneumonia patient was hypotensive,tachycardic,hypoxemic with WBC 16.8 and CXR showing bilateral infiltrates, lactate 2.6 on admission Sputum cx positive for yeast Switched 2 liters however again lethargic and placed back on High Flow . will place back on high Flow O2 20 LPM FIO2 40 % Afebrile with WBC 14 K has been on Iv antibiotics since admission 01/27 - d/c diflucan, vanco and Zosyn completed IV Azithro x 10 days ID consulted: Dr Escalera 2.Acute hypoxemic and hypercarbic respiratory failure Most likely secondary to multi lobar Pneumonia and COPD exacerbation . Became lethargic possibly secondary to Opiates, Librium Off PreCedex drip since 02/04 @ 6 AM Today again appears lethargic- on High Flow Oxygen Continue Duonebs Tapered off steroids , on advair INH Pulmonary and ID consulted Continue IV antibiotics, vanco, Zosyn , Diflucan and and Duonebs CTA of Chest to r/o PE Dr Mojica called back to re-evaluate pt - rec to do V/Q scan if CTA is negative. to r/o CTE Pulm HTN 3. Multifocal Pneumonia ID and pulmonary consulted Has been on Vanco, Zosyn, and Diflucan for 2 weeks . D/c all antibiotics Sputum cx positive for yeast CXR showed improved infiltrates patient is a long time smoker so will need to follow up resolution of infiltrates to rule out any underlying malignancy rpt CT of chest 4. Facial and lower extremity edema unclear etiology of facial edema , resolved TSH : normal Given Solumedrol 125mg , Benadry and Pepcid LE venous doppler negative for DVT Echo showed normal LVF EF 65 -70 % given lasix Edema sec to liver dis ? 5. ETOH abuse / Delirium Tremens/Delirium /alcoholic encephalopathy was started on Precedex drip in ICU for being agitated , restless and has been off drip since 02/04 tapered off Librium and only on Ativan PRN continue Thiamine, Folic acid Seizure precautions/ withdrawal precautions psych consulted rec Risperdal or Haldol for agitation Still confused and lethargic today 6. SUNDAR improved no prior records and unknown baseline renal function improved 7.COPD exacerbation-- improved continue Duonebs change back to high flow pulmonary consulted counseled on smoking tapered off IV solumedrol 8. Alcohol Liver Dis Bill 6.6 AST 150 on admission. rigoberto trending down to 2.9, afebrile CT chest showed hepatomegaly , fatty infiltration , some ascitic fluid and umbilical vein recannulization significant for portal hypertension \ US showed: Hepatomegaly with steatosis.Trace perihepatic ascites.Nonspecific gallbladder wall thickening. Gallbladder wall thickening is a nonspecific finding which can be seen with ascites, hepatitis, cholecystitis,CHF or hypoproteinemic states. patient has no abdominal pain , no fever , no signs of cholecystitis Continue monitoring 9. Chronic Lower back pain likely sec to Compression Fractures Ct chest also showed mild chronic compression fracture in mid thoracic spine Multiple attempts made to have pt go for CT of Lpine and T spine however pt could not tolerate and could not remain still for the procedure - finally went - CT of the spine showed Acute Thoracic and Lumbar spine compression fractures Neurosurgery consulted- no NSS intervention , rec PT, Pain mgt Pain management consulted and started on Morphine and lidoderm patch MRI spine showed no acute fracture or significant disc protrusion With urinary retention x2 . 10.Anemia unclear etiology Normal Iron and B12 level cont Thiamine 11. Smoker on nicotine patch 12 Thrombocytopenia, unclear if sec to alcohol vs meds - Zosyn HIT : negative d/c Lovenox 13.Urinary retention unclear etiology most likely secondary to immobility, pain medication,pain Straight cath placed x 2 with 1000 ml call urology consult if need to place soria 14. DVT prophylaxis GI prophylaxis d/c lovenox due to thrombocytopenia Pepcid
[2017-02-13] MEDS ORDERED: Albuterol-Ipratrop 3 mg / 0.5 (3 ml) UD INH PRN (10:01)
--- NOTE | 2017-02-13 13:54 | CP.PCM.PN ---
Subjective - Date & Time of Evaluation Date of Evaluation: 02/13/17 Time of Evaluation: 10:00 - Subjective Subjective: events noted IV rx in progress CXR to be repeated Objective - Vital Signs/Intake and Output Vital Signs (last 24 hours): Temp Pulse Resp BP Pulse Ox 97.8 F 92 H 20 125/72 97 02/13/17 11:50 02/13/17 11:50 02/13/17 11:50 02/13/17 11:50 02/13/17 11:50 - Medications Medications: Current Medications Acetaminophen (Tylenol 325mg Tab) 650 mg PO Q6H PRN PRN Reason: Pain, Mild (1-3) Acetaminophen (Tylenol 325mg Tab) 650 mg PO Q6H PRN PRN Reason: Fever >100.4 F Acetazolamide (Diamox Sequels 500 Mg Sr Cap) 500 mg PO DAILY [facility] Last Admin: 02/13/17 09:38 Dose: Not Given Albuterol/Ipratropium (Duoneb 3 Mg/0.5 Mg (3 Ml) Ud) 3 ml INH RQ4 [facility] Last Admin: 02/13/17 11:28 Dose: 3 ml Albuterol/Ipratropium (Duoneb 3 Mg/0.5 Mg (3 Ml) Ud) 3 ml INH RQ4 PRN PRN Reason: Shortness of Breath Last Admin: 02/13/17 10:05 Dose: 3 ml Bisacodyl (Dulcolax) 10 mg CO DAILY PRN PRN Reason: Constipation Last Admin: 02/12/17 20:13 Dose: 10 mg Docusate Sodium (Colace) 100 mg PO BID PRN PRN Reason: Constipation Last Admin: 02/08/17 20:35 Dose: 100 mg Folic Acid (Folic Acid) 1 mg PO DAILY [facility] Last Admin: 02/13/17 09:38 Dose: Not Given Lidocaine (Lidoderm) 1 ea TD DAILY [facility] Last Admin: 02/13/17 09:38 Dose: Not Given Magnesium Hydroxide (Milk Of Magnesia) 30 ml PO DAILY PRN PRN Reason: Constipation Last Admin: 02/12/17 20:13 Dose: 30 ml Morphine Sulfate (Morphine Extended Release Tab) 15 mg PO Q12 [facility] Last Admin: 02/13/17 09:38 Dose: Not Given Multivitamins/Minerals (Therapeutic-M Tab) 1 tab PO DAILY [facility] Last Admin: 12/10/17 09:39 Dose: Not Given Nicotine (Nicoderm Cq) 1 patch TD DAILY [facility] Last Admin: 02/12/17 08:54 Dose: 1 patch Ondansetron HCl (Zofran Inj) 4 mg IVP Q6H PRN PRN Reason: Nausea/Vomiting Risperidone (Risperdal Tab) 0.5 mg PO Q12 PRN PRN Reason: Agitation Last Admin: 02/12/17 23:56 Dose: 0.5 mg Fluticasone/Salmeterol (Advair Diskus 250/50) 1 puff IH Q12 [facility] Last Admin: 02/13/17 09:38 Dose: Not Given Thiamine HCl (Vitamin B1 Tab) 100 mg PO DAILY [facility] Last Admin: 02/13/17 09:39 Dose: Not Given - Labs Labs: 02/13/17 06:30 02/13/17 06:30 PT 17.3 Seconds (9.8-13.1) H 02/09/17 11:55 INR 1.5 (0.9-1.2) H 02/09/17 11:55 APTT 19.7 Seconds (25.6-37.1) L 02/09/17 11:55 - Constitutional Appears: Non-toxic, Chronically Ill - Head Exam Head Exam: NORMOCEPHALIC - Eye Exam Pupil Exam: NORMAL ACCOMODATION - ENT Exam ENT Exam: Mucous Membranes Dry - Neck Exam Neck Exam: absent: Thyromegaly - Respiratory Exam Respiratory Exam: Decreased Breath Sounds, Rhonchi - Cardiovascular Exam Cardiovascular Exam: REGULAR RHYTHM, +S1, +S2 - GI/Abdominal Exam GI & Abdominal Exam: Distended, Soft - Rectal Exam Rectal Exam: Deferred - Exam Exam: NORMAL INSPECTION - Extremities Exam Extremities Exam: absent: Pedal Edema - Back Exam Back Exam: absent: CVA tenderness (L), CVA tenderness (R) - Neurological Exam Neurological Exam: Alert, Awake Assessment and Plan (1) Bilateral pneumonia Status: Acute (2) COPD exacerbation Status: Acute (3) Respiratory distress Status: Acute (4) Severe sepsis Status: Acute (5) Alcohol abuse Status: Acute
[2017-02-13] MEDS ORDERED: Iodixanol 320 MG/ML 100 ML BOTTLE IV ONE (14:22)
--- NOTE | 2017-02-13 15:39 | CT ---
PROCEDURE: CT Chest with contrast (Pulmonary Angiogram) CT Angiography Abdomen, Pelvis and Lower Extremity with Contrast 90 cc of Omnipaque 320 HISTORY: r/p PE, ff up Multifocal PNA COMPARISON: None available. TECHNIQUE: Axial computed tomography images were obtained of the chest in the pulmonary arterial phase of enhancement. Coronal and sagittal reformatted images were created and reviewed. Intravenous contrast dose: Radiation dose: Total exam DLP = mGy-cm. This CT exam was performed using one or more of the following dose reduction techniques: Automated exposure control, adjustment of the mA and/or kV according to patient size, and/or use of iterative reconstruction technique. FINDINGS: PULMONARY ARTERIES: Unremarkable. No pulmonary embolism. AORTA: No acute findings. No thoracic aortic aneurysm. LUNGS: Bilateral large areas of consolidation particular in the left lower lobe, right lower lobe and medial segment of the right middle lobe. PLEURAL SPACES: Unremarkable. No effusion or pneuomothorax. HEART: Unremarkable. No cardiomegaly. No significant pericardial effusion. LYMPH NODES: No lymphadenopathy. BONES, CHEST WALL: Unremarkable. No fracture or destructive lesion OTHER FINDINGS: Perihepatic ascites. Patchy infiltrates noted in the upper lung zones bilaterally. IMPRESSION: Bilateral areas of consolidation. No evidence of pulmonary embolism. Perihepatic ascites.
[2017-02-14] MEDS: Albuterol-Ipratrop 3 mg / 0.5 (3 ml) UD INH SCH ×6 (00:14→19:23)
[2017-02-14 05:18] LABS: HEMATOCRIT 26.1 % (34.0-47.0); MEAN CELL VOLUME 106.7 fl (81.0-99.0); MEAN CORPUSCULAR HEMOGLOBIN 35.2 pg (27.0-31.0); MEAN CORPUSCULAR HGB CONC 32.9 g/dL (33.0-37.0); RED CELL DISTRIBUTION WIDTH 18.3 % (11.5-14.5); WHITE BLOOD COUNT 8.2 K/uL (4.8-10.8)
[2017-02-14 05:32] LABS: ALB/GLOB RATIO 0.8 (1.0-2.1); ALKALINE PHOSPHATASE 142 U/L (38-126); ALT/SGPT 68 U/L (9-52); AST/SGOT 42 U/L (14-36); BILIRUBIN,TOTAL 2.1 mg/dl (0.2-1.3); BLOOD UREA NITROGEN 13 mg/dl (7-17); CARBON DIOXIDE 31 mmol/L (22-30); CHLORIDE 101 mmol/L (98-107); GFR AFRICAN-AMERICAN > 60; GLUCOSE,RANDOM 99 mg/dL (65-105); POTASSIUM 3.7 MMOL/L (3.6-5.0); SODIUM 139 mmol/l (132-148); TOTAL PROTEIN 6.6 G/DL (6.3-8.2)
--- NOTE | 2017-02-14 09:55 | CP.PCM.PN ---
Subjective - Date & Time of Evaluation Date of Evaluation: 02/14/17 Time of Evaluation: 08:30 - Subjective Subjective: Pt is more alert today responds to questions appropriately takes off her High Flow Oxygen - so changed to NC however also takes it off Saturation on Room Air =90-91% denies CP no abd pain back pain better today Objective - Vital Signs/Intake and Output Vital Signs (last 24 hours): Temp Pulse Resp BP Pulse Ox 99.7 F H 93 H 18 99/61 L 99 02/14/17 07:57 02/14/17 07:57 02/14/17 08:15 02/14/17 07:57 02/14/17 07:57 - Medications Medications: Current Medications Acetaminophen (Tylenol 325mg Tab) 650 mg PO Q6H PRN PRN Reason: Pain, Mild (1-3) Acetaminophen (Tylenol 325mg Tab) 650 mg PO Q6H PRN PRN Reason: Fever >100.4 F Acetazolamide (Diamox Sequels 500 Mg Sr Cap) 500 mg PO DAILY [facility] Last Admin: 02/13/17 09:38 Dose: Not Given Albuterol/Ipratropium (Duoneb 3 Mg/0.5 Mg (3 Ml) Ud) 3 ml INH RQ4 [facility] Last Admin: 02/14/17 07:35 Dose: 3 ml Albuterol/Ipratropium (Duoneb 3 Mg/0.5 Mg (3 Ml) Ud) 3 ml INH RQ4 PRN PRN Reason: Shortness of Breath Last Admin: 02/13/17 10:05 Dose: 3 ml Bisacodyl (Dulcolax) 10 mg PA DAILY PRN PRN Reason: Constipation Last Admin: 02/12/17 20:13 Dose: 10 mg Docusate Sodium (Colace) 100 mg PO BID PRN PRN Reason: Constipation Last Admin: 02/08/17 20:35 Dose: 100 mg Folic Acid (Folic Acid) 1 mg PO DAILY [facility] Last Admin: 02/13/17 09:38 Dose: Not Given Lidocaine (Lidoderm) 1 ea TD DAILY [facility] Last Admin: 02/13/17 09:38 Dose: Not Given Magnesium Hydroxide (Milk Of Magnesia) 30 ml PO DAILY PRN PRN Reason: Constipation Last Admin: 02/12/17 20:13 Dose: 30 ml Morphine Sulfate (Morphine Extended Release Tab) 15 mg PO Q12 [facility] Last Admin: 02/13/17 22:06 Dose: Not Given Multivitamins/Minerals (Therapeutic-M Tab) 1 tab PO DAILY [facility] Last Admin: 02/13/17 09:39 Dose: Not Given Nicotine (Nicoderm Cq) 1 patch TD DAILY [facility] Last Admin: 02/12/17 08:54 Dose: 1 patch Ondansetron HCl (Zofran Inj) 4 mg IVP Q6H PRN PRN Reason: Nausea/Vomiting Risperidone (Risperdal Tab) 0.5 mg PO Q12 PRN PRN Reason: Agitation Last Admin: 02/12/17 23:56 Dose: 0.5 mg Fluticasone/Salmeterol (Advair Diskus 250/50) 1 puff IH Q12 [facility] Last Admin: 02/13/17 22:05 Dose: 1 puff Thiamine HCl (Vitamin B1 Tab) 100 mg PO DAILY [facility] Last Admin: 02/13/17 09:39 Dose: Not Given - Labs Labs: 02/14/17 04:20 02/14/17 04:20 PT 17.3 Seconds (9.8-13.1) H 02/09/17 11:55 INR 1.5 (0.9-1.2) H 02/09/17 11:55 APTT 19.7 Seconds (25.6-37.1) L 02/09/17 11:55 - Constitutional Appears: Chronically Ill, more alert today - Head Exam Head Exam: NORMOCEPHALIC - Eye Exam Eye Exam: EOMI Pupil Exam: NORMAL ACCOMMODATION - ENT Exam ENT Exam: Mucous Membranes Dry, Normal External Ear Exam - Neck Exam Neck Exam: Full ROM. absent: Meningismus - Respiratory Exam Respiratory Exam: + Rales, Rhonchi, Wheezes on NC - Cardiovascular Exam Cardiovascular Exam: REGULAR RHYTHM, +S1, +S2 - GI/Abdominal Exam GI & Abdominal Exam: Soft, Normal Bowel Sounds. absent: Tenderness - Extremities Exam Extremities Exam: Normal Capillary Refill, Pedal Edema. absent: Calf Tenderness - Back Exam Back Exam: absent: CVA tenderness (L), CVA tenderness (R) - Neurological Exam Neurological Exam: Awake Additional comments: answers questions appropriately moves all extremities - Psychiatric Exam Psychiatric exam: irritable - Skin Skin Exam: Dry, Normal Color, Warm Assessment and Plan - Assessment and Plan (Free Text) Assessment: 51 y/o female with COPD , fatty liver, Chronic ETOH abuse ( daily 8 cups of 8 ounce vodka ) , smoker , chronic lower back pain brought to ER for evaluation by EMS for facial and lower extremity swelling , SOB and lower back pain. As per patient she has some baseline SOB with ambulation and has chronic lower back pain . Pt was having some lower back pain for which she took some Motrin and Advil PM. and when she woke up she noticed her face and eyes to be swollen and her lower extremities were swollen as well. She could not get out of bed and was having significant back pain . In the ED , was found to be in respiratory distress,with dyspnea RR 35 O2sat 94 %, slightly hypotensive BP 96/65 tachycardic HR 122. She was given 2 Duonebs in the field, 125 mg IV solumedrol in ER , started on IVF and placed on High Flow O2 ,20 LPM FIO2 60 % Her ABG showed PO2 70 PCO2 35 pH 7.38 . CXR showed bilateral infiltrates worse on the right WBC found to be elevated 16.8 Hgb 10 BUN/Cr 20/1.4 rigoberto 6.6 ASt / ALT 150/26 lactic acid 2.6 ETOH levels 73 Physical exam was significant for tremors , increased work of breathing , periorbital, facial and lower extremity edema, her breath smelled of alcohol. She was admitted in ICU for close monitoring and treatment, she improved and was transferred to telemetry but became very agitated , restless , confused , tachypneic and tachycardic and so was transferred back to ICU for close monitoring. She was placed on High Flow Oxygen and started on Precedex drip and later switched to librium and Ativan PRN. She became very lethargic so all sedation medications were stopped including pain medications. CT L-S spine showed DJD and some compression fractures that could be reason for her back pain. Anesthesiology,spine surgeon were consulted . Her confusion improved somewhat and was switched to NC maintaining her O2 sat and transferred to telemetry. MRI of thoracic and Lumbar spine: Compression fractures Attempted to get in touch with her PMD - DR Sidney Suarez - on vacation, will be back Feb 21 1. Severe Sepsis- resolving Most likely secondary to multifocal pneumonia patient was hypotensive,tachycardic,hypoxemic with WBC 16.8 and CXR showing bilateral infiltrates, lactate 2.6 on admission Sputum cx positive for yeast Switched 2 liters however again lethargic and placed back on High Flow however pt takes off Oxygen has been on Iv antibiotics since admission 01/27 - d/c diflucan, vanco and Zosyn - now off abx also completed IV Azithro x 10 days ID consulted: Dr Escalera 2.Acute hypoxemic and hypercarbic respiratory failure Most likely secondary to multi lobar Pneumonia and COPD exacerbation . Became lethargic possibly secondary to Opiates, Librium Off PreCedex drip since 02/04 Placed on High Flow Oxygen however when pt is alert, she takes off her Oxygen - saturating 90-91% on Room air Continue Duonebs Tapered off steroids , on advair INH Pulmonary and ID consulted Continue IV antibiotics, vanco, Zosyn , Diflucan and and Duonebs CTA of Chest : PE ruled out, noted consolidations Dr Mojica reconsulted to re-evaluate pt - rec to do V/Q scan if CTA is negative , to r/o CTE Pulm HTN 3. Multifocal Pneumonia ID and pulmonary consulted Has been on Vanco, Zosyn, Azithro and Diflucan for 2 weeks . D/c all antibiotics Sputum cx positive for yeast CXR showed improved infiltrates patient is a long time smoker so will need to follow up resolution of infiltrates to rule out any underlying malignancy 4. Facial and lower extremity edema unclear etiology of facial edema , resolved TSH : normal Given Solumedrol 125mg , Benadry and Pepcid LE venous doppler negative for DVT Echo showed normal LVF EF 65 -70 % given lasix Edema sec to liver dis ? 5. ETOH abuse / Delirium Tremens/Delirium /alcoholic encephalopathy was started on Precedex drip in ICU for being agitated , restless and has been off drip since 02/04 tapered off Librium continue Thiamine, Folic acid Seizure precautions/ withdrawal precautions psych consulted- rec Risperdal or Haldol for agitation 6. SUNDAR improved no prior records and unknown baseline renal function improved 7.COPD exacerbation-- improved continue Duonebs pulmonary consulted counseled on smoking tapered off IV solumedrol 8. Alcohol Liver Dis Bill 6.6 AST 150 on admission. Bili trending down to 2.1, afebrile CT chest showed hepatomegaly , fatty infiltration , some ascitic fluid and umbilical vein recannulization significant for portal hypertension \ US showed: Hepatomegaly with steatosis.Trace perihepatic ascites.Nonspecific gallbladder wall thickening. Gallbladder wall thickening is a nonspecific finding which can be seen with ascites, hepatitis, cholecystitis,CHF or hypoproteinemic states. patient has no abdominal pain , no fever , no signs of cholecystitis Continue monitoring 9. Chronic Lower back pain likely sec to Compression Fractures Ct chest also showed mild chronic compression fracture in mid thoracic spine Multiple attempts made to have pt go for CT of Lpine and T spine however pt could not tolerate and could not remain still for the procedure - finally went - CT of the spine showed Acute Thoracic and Lumbar spine compression fractures Neurosurgery consulted- no NSS intervention , rec PT, Pain mgt Pain management consulted and started on Morphine and lidoderm patch MRI spine showed no acute fracture or significant disc protrusion With urinary retention. 10.Anemia unclear etiology Normal Iron and B12 level cont Thiamine 11. Smoker on nicotine patch 12 Thrombocytopenia, unclear if sec to alcohol, liver dis and meds HIT : negative d/c Lovenox 13.Urinary retention unclear etiology most likely secondary to immobility, pain medication,pain Straight cath placed x 2 with 1000 ml Gaffney cath placed 14. DVT prophylaxis GI prophylaxis d/c lovenox due to thrombocytopenia Pepcid
[2017-02-14] MEDS: Fluticasone-Salmeterol 250-50mcg Diskus IH SCH ×2 (10:26→21:41)
[2017-02-14] MEDS: acetaZOLAMIDE 500 mg SR Cap PO SCH (10:27)
[2017-02-14] MEDS: Lidocaine 5% Patch TD SCH (10:27)
[2017-02-14] MEDS: Multivitamin With Minerals Tab PO SCH (10:28)
[2017-02-14 11:07] LABS: ABG ALLEN TEST YES; ARTERIAL BLOOD GAS HCO3 30.5 mmol/L (21-28); ARTERIAL BLOOD GAS O2 CAPACITY 17.4 mL/dL (16-24); ARTERIAL BLOOD GAS O2 CONTENT 16.2 ML/dL (15-23); ARTERIAL BLOOD GAS PO2 55 mm/Hg (80-100); ARTERIAL BLOOD HGB O2 SAT 89.2 % (95.0-98.0); HHB 6.4 % (0.0-5.0); METHEMOGLOBIN 1.4 % (0.0-3.0)
--- NOTE | 2017-02-14 16:34 | NM ---
COMPARISON: Chest CT with contrast 02/13/2017. TECHNIQUE: 30.0 mCi technetium 99-m DTPA aerosol. 5.0 mCI technetium 99-m MAA administered intravenously. FINDINGS: VENTILATION COMPONENT: Central deposition of radioisotope may indicate an element of COPD though this is not apparent in the chest CT from 02/13/2017. Clinically correlate. Some of the inhaled agent is been ingested as well. PERFUSION COMPONENT: Near normal profusion is appreciated bilaterally with the exception of nonsegmental defects at the right greater than left lung which are limited in size, appearing quite small. No perfusion mismatches are encountered. IMPRESSION: Lowprobability ventilation perfusion scan for pulmonary embolism.
--- NOTE | 2017-02-14 23:22 | CP.PCM.PN ---
Subjective - Subjective Subjective: Acute Resp Insuff COPD Ex / Tracheobronchitis. Multilobar Pna. ETOH Abuse. Chronic Medical Conditions S/ Patient stated her breathing is fine. Had O2 Sat at 90% off of oxygen. O: Afebrile, VSS Head: Neg Adeno, Pos TORRIE, Neg JVD Pos stridor. Heart: RRR, ns1s2 Lungs: Distant BS and mild crackles at bases which changed with coughing. Abdo, Soft, NT Pos BS. Ext: No C,C, 2 + Edema LE Neuro: A * O times 3. Non Focal. Cont MV, maintain O2 Sat > 90% Cont IV Abx as per ID (seems like she completed full course), monitor WBC#, temp curve and cultures. Cont Nebulized treatments. Cont Steroids. CTA negative for clots. Awaiting full report of V/Q scan to r/o CTE. Optimize cardiac status. Keep Benzo's to a minimum dosage. ENT evaluation to r/o Vocal Cord Dysfunction Syndrome. PT/OT PUD and DVT px. Objective - Vital Signs/Intake and Output Vital Signs (last 24 hours): Temp Pulse Resp BP Pulse Ox 98.9 F 83 20 119/70 97 02/14/17 20:08 02/14/17 20:08 02/14/17 20:08 02/14/17 20:08 02/14/17 20:08 - Medications Medications: Current Medications Acetaminophen (Tylenol 325mg Tab) 650 mg PO Q6H PRN PRN Reason: Pain, Mild (1-3) Acetaminophen (Tylenol 325mg Tab) 650 mg PO Q6H PRN PRN Reason: Fever >100.4 F Acetazolamide (Diamox Sequels 500 Mg Sr Cap) 500 mg PO DAILY [facility] Last Admin: 02/14/17 10:27 Dose: 500 mg Albuterol/Ipratropium (Duoneb 3 Mg/0.5 Mg (3 Ml) Ud) 3 ml INH RQ4 [facility] Last Admin: 02/14/17 19:23 Dose: 3 ml Albuterol/Ipratropium (Duoneb 3 Mg/0.5 Mg (3 Ml) Ud) 3 ml INH RQ4 PRN PRN Reason: Shortness of Breath Last Admin: 02/13/17 10:05 Dose: 3 ml Bisacodyl (Dulcolax) 10 mg [place] DAILY PRN PRN Reason: Constipation Last Admin: 02/12/17 20:13 Dose: 10 mg Docusate Sodium (Colace) 100 mg PO BID PRN PRN Reason: Constipation Last Admin: 02/08/17 20:35 Dose: 100 mg Folic Acid (Folic Acid) 1 mg PO DAILY [facility] Last Admin: 02/14/17 10:27 Dose: 1 mg Lidocaine (Lidoderm) 1 ea TD DAILY [facility] Last Admin: 02/14/17 10:27 Dose: 1 ea Magnesium Hydroxide (Milk Of Magnesia) 30 ml PO DAILY PRN PRN Reason: Constipation Last Admin: 02/12/17 20:13 Dose: 30 ml Multivitamins/Minerals (Therapeutic-M Tab) 1 tab PO DAILY [facility] Last Admin: 02/14/17 10:28 Dose: 1 tab Nicotine (Nicoderm Cq) 1 patch TD DAILY [facility] Last Admin: 02/14/17 10:27 Dose: 1 patch Ondansetron HCl (Zofran Inj) 4 mg IVP Q6H PRN PRN Reason: Nausea/Vomiting Fluticasone/Salmeterol (Advair Diskus 250/50) 1 puff IH Q12 [facility] Last Admin: 02/14/17 21:41 Dose: 1 puff Thiamine HCl (Vitamin B1 Tab) 100 mg PO DAILY [facility] Last Admin: 02/14/17 10:28 Dose: 100 mg - Labs Labs: 02/14/17 04:20 02/14/17 04:20 PT 17.3 Seconds (9.8-13.1) H 02/09/17 11:55 INR 1.5 (0.9-1.2) H 02/09/17 11:55 APTT 19.7 Seconds (25.6-37.1) L 02/09/17 11:55
[2017-02-15] MEDS: Albuterol-Ipratrop 3 mg / 0.5 (3 ml) UD INH SCH ×6 (00:54→19:37)
[2017-02-15] MEDS: Fluticasone-Salmeterol 250-50mcg Diskus IH SCH ×2 (08:38→21:58)
[2017-02-15] MEDS: Multivitamin With Minerals Tab PO SCH (08:39)
[2017-02-15] MEDS: acetaZOLAMIDE 500 mg SR Cap PO SCH (08:40)
[2017-02-15] MEDS: Lidocaine 5% Patch TD SCH (08:40)
--- NOTE | 2017-02-15 09:35 | CP.PCM.PN ---
Subjective - Date & Time of Evaluation Date of Evaluation: 02/15/17 Time of Evaluation: 08:30 - Subjective Subjective: Pt is more awake today than previous days was able to eat some apple sauce and had some Ensure - fed by RN no fever weak and deconditioned , able to lift both LE against grvity but only for a few seconds answers questions appropriately however has very minimal verbal output denies CP no abd pain Objective - Vital Signs/Intake and Output Vital Signs (last 24 hours): Temp Pulse Resp BP Pulse Ox 97.9 F 101 H 18 113/71 94 L 02/15/17 08:08 02/15/17 08:08 02/15/17 08:08 02/15/17 08:08 02/15/17 08:08 Intake and Output: 02/15/17 02/15/17 06:59 18:59 Intake Total 600 Output Total 900 Balance -300 - Medications Medications: Current Medications Acetaminophen (Tylenol 325mg Tab) 650 mg PO Q6H PRN PRN Reason: Pain, Mild (1-3) Acetaminophen (Tylenol 325mg Tab) 650 mg PO Q6H PRN PRN Reason: Fever >100.4 F Acetazolamide (Diamox Sequels 500 Mg Sr Cap) 500 mg PO DAILY [facility] Last Admin: 02/15/17 08:40 Dose: 500 mg Albuterol/Ipratropium (Duoneb 3 Mg/0.5 Mg (3 Ml) Ud) 3 ml INH RQ4 [facility] Last Admin: 02/15/17 07:54 Dose: 3 ml Albuterol/Ipratropium (Duoneb 3 Mg/0.5 Mg (3 Ml) Ud) 3 ml INH RQ4 PRN PRN Reason: Shortness of Breath Last Admin: 02/13/17 10:05 Dose: 3 ml Bisacodyl (Dulcolax) 10 mg [place] DAILY PRN PRN Reason: Constipation Last Admin: 02/12/17 20:13 Dose: 10 mg Docusate Sodium (Colace) 100 mg PO BID PRN PRN Reason: Constipation Last Admin: 02/08/17 20:35 Dose: 100 mg Folic Acid (Folic Acid) 1 mg PO DAILY [facility] Last Admin: 02/15/17 08:40 Dose: 1 mg Lidocaine (Lidoderm) 1 ea TD DAILY [facility] Last Admin: 02/15/17 08:40 Dose: 1 ea Magnesium Hydroxide (Milk Of Magnesia) 30 ml PO DAILY PRN PRN Reason: Constipation Last Admin: 02/12/17 20:13 Dose: 30 ml Multivitamins/Minerals (Therapeutic-M Tab) 1 tab PO DAILY [facility] Last Admin: 02/15/17 08:39 Dose: 1 tab Nicotine (Nicoderm Cq) 1 patch TD DAILY [facility] Last Admin: 02/15/17 08:39 Dose: 1 patch Ondansetron HCl (Zofran Inj) 4 mg IVP Q6H PRN PRN Reason: Nausea/Vomiting Fluticasone/Salmeterol (Advair Diskus 250/50) 1 puff IH Q12 [facility] Last Admin: 02/15/17 08:38 Dose: 1 puff Thiamine HCl (Vitamin B1 Tab) 100 mg PO DAILY [facility] Last Admin: 02/15/17 08:39 Dose: 100 mg - Labs Labs: 02/14/17 04:20 02/14/17 04:20 PT 17.3 Seconds (9.8-13.1) H 02/09/17 11:55 INR 1.5 (0.9-1.2) H 02/09/17 11:55 APTT 19.7 Seconds (25.6-37.1) L 02/09/17 11:55 - Constitutional Appears: Chronically Ill, more alert today - Head Exam Head Exam: NORMOCEPHALIC - Eye Exam Eye Exam: EOMI Pupil Exam: NORMAL ACCOMMODATION - ENT Exam ENT Exam: Mucous Membranes Dry, Normal External Ear Exam - Neck Exam Neck Exam: Full ROM. absent: Meningismus - Respiratory Exam Respiratory Exam: + Rales, Rhonchi, mild Wheezes on NC - Cardiovascular Exam Cardiovascular Exam: REGULAR RHYTHM, +S1, +S2 - GI/Abdominal Exam GI & Abdominal Exam: Soft, Normal Bowel Sounds. absent: Tenderness - Extremities Exam Extremities Exam: Normal Capillary Refill, Pedal Edema. absent: Calf Tenderness - Back Exam Back Exam: absent: CVA tenderness (L), CVA tenderness (R) - Neurological Exam Neurological Exam: Awake Additional comments: answers questions appropriately moves all extremities- follows simple commands - Psychiatric Exam Psychiatric exam: irritable - Skin Skin Exam: Dry, Normal Color, Warm Assessment and Plan - Assessment and Plan (Free Text) Assessment: 51 y/o female with COPD , fatty liver, Chronic ETOH abuse ( daily 8 cups of 8 ounce vodka ) , smoker , chronic lower back pain brought to ER for evaluation by EMS for facial and lower extremity swelling , SOB and lower back pain. As per patient she has some baseline SOB with ambulation and has chronic lower back pain . Pt was having some lower back pain for which she took some Motrin and Advil PM. and when she woke up she noticed her face and eyes to be swollen and her lower extremities were swollen as well. She could not get out of bed and was having significant back pain . In the ED , was found to be in respiratory distress,with dyspnea RR 35 O2sat 94 %, slightly hypotensive BP 96/65 tachycardic HR 122. She was given 2 Duonebs in the field, 125 mg IV solumedrol in ER , started on IVF and placed on High Flow O2 ,20 LPM FIO2 60 % Her ABG showed PO2 70 PCO2 35 pH 7.38 . CXR showed bilateral infiltrates worse on the right WBC found to be elevated 16.8 Hgb 10 BUN/Cr 20/1.4 rigoberto 6.6 ASt / ALT 150/26 lactic acid 2.6 ETOH levels 73 Physical exam was significant for tremors , increased work of breathing , periorbital, facial and lower extremity edema, her breath smelled of alcohol. She was admitted in ICU for close monitoring and treatment, she improved and was transferred to telemetry but became very agitated , restless , confused , tachypneic and tachycardic and so was transferred back to ICU for close monitoring. She was placed on High Flow Oxygen and started on Precedex drip and later switched to librium and Ativan PRN. She became very lethargic so all sedation medications were stopped including pain medications. CT L-S spine showed DJD and some compression fractures that could be reason for her back pain. Anesthesiology,spine surgeon were consulted . Her confusion improved somewhat and was switched to NC maintaining her O2 sat and transferred to telemetry. MRI of thoracic and Lumbar spine: Compression fractures Attempted to get in touch with her PMD - DR Sidney Suarez - on vacation, will be back Feb 21 1. Severe Sepsis- resolving Most likely secondary to multifocal pneumonia patient was hypotensive,tachycardic,hypoxemic with WBC 16.8 and CXR showing bilateral infiltrates, lactate 2.6 on admission Sputum cx positive for yeast has been on Iv antibiotics since admission 11/23 - d/c diflucan, Vanco and Zosyn - now off abx also completed IV Azithro x 10 days ID consulted: Dr Escalera 2.Acute hypoxemic and hypercarbic respiratory failure Most likely secondary to multi lobar Pneumonia and COPD exacerbation PE ruled out - neg CTA and V/Q scan was placed on High Flow Oxygen initially , d/c yesterday and placed on 2 liters NC d/c Opiates , sedatives and anti Psychotics as this makes pt very sedated Off PreCedex drip since 02/04 Continue Duonebs Tapered off steroids , on Advair INH Pulmonary and ID consulted OFF IV antibiotics, vanco, Zosyn , Diflucan cont Duonebs CTA of Chest : PE ruled out, noted consolidations Dr Mojica reconsulted to re-evaluate pt - rec to do V/Q scan to r/o CTE Pulm HTN - ( low probability ) 3. Multifocal Pneumonia ID and pulmonary consulted Has been on Vanco, Zosyn, Azithro and Diflucan for 2 weeks . D/c all antibiotics Sputum cx positive for yeast CXR showed improved infiltrates patient is a long time smoker so will need to follow up resolution of infiltrates to rule out any underlying malignancy 4. Facial and lower extremity edema unclear etiology of facial edema , resolved TSH : normal Given Solumedrol 125mg , Benadry and Pepcid LE venous doppler negative for DVT Echo showed normal LVF EF 65 -70 % given lasix 5. ETOH abuse / Delirium Tremens/alcoholic encephalopathy was started on Precedex drip in ICU , was agitated /restless and has been off drip since 02/04 tapered off Librium continue Thiamine, Folic acid Seizure precautions/ withdrawal precautions psych consulted- rec Risperdal or Haldol for agitation however pt gets very sedated on theses meds when given 6. AMS ? sec to Encephalopathy - pt still lethargic despite tx of PNA,COPD, Alcoholism, now off all sedatives and opiates - Ammonia level normal - B12 level normal - TSH normal - CT of head x 2 : neg - will do EEG and MRI of brain - started Lactulose despite normal NH4 level - Neurology consult - Dr Mora 7. SUNDAR improved no prior records and unknown baseline renal function improved 8. COPD exacerbation-- improved continue Nhanonebs pulmonary consulted counseled on smoking tapered off IV solumedrol 9. Alcohol Liver Dis Bill 6.6 AST 150 on admission. Bili trending down to 2.1, afebrile CT chest showed hepatomegaly , fatty infiltration , some ascitic fluid and umbilical vein recannulization significant for portal hypertension \ US showed: Hepatomegaly with steatosis.Trace perihepatic ascites.Nonspecific gallbladder wall thickening. Gallbladder wall thickening is a nonspecific finding which can be seen with ascites, hepatitis, cholecystitis,CHF or hypoproteinemic states. patient has no abdominal pain , no fever , no signs of cholecystitis Continue monitoring 10. Chronic Lower back pain likely sec to Compression Fractures Ct chest also showed mild chronic compression fracture in mid thoracic spine Multiple attempts made to have pt go for CT of [place] and T spine however pt could not tolerate and could not remain still for the procedure - finally went - CT of the spine showed Acute Thoracic and Lumbar spine compression fractures Neurosurgery consulted- no NSS intervention , rec PT, Pain mgt Pain management consulted and started on Morphine and lidoderm patch MRI spine showed no acute fracture or significant disc protrusion With urinary retention- Gaffney in place, will do bladder training, now off all opiates, sedatives 11.Anemia unclear etiology Normal Iron and B12 level cont Thiamine 12. Thrombocytopenia, sec to alcohol, liver dis and meds HIT : negative d/c Lovenox 13.Urinary retention unclear etiology most likely secondary to immobility, pain medication Straight cath placed x 2 with 1000 ml Gaffney cath placed 14. DVT prophylaxis GI prophylaxis d/c lovenox due to thrombocytopenia Pepcid
--- NOTE | 2017-02-15 10:07 | CP.PCM.PN ---
Subjective - Date & Time of Evaluation Date of Evaluation: 02/15/17 Time of Evaluation: 06:00 - Subjective Subjective: afeb off antibiotics CXR shows clearing Objective - Vital Signs/Intake and Output Vital Signs (last 24 hours): Temp Pulse Resp BP Pulse Ox 97.9 F 101 H 18 113/71 94 L 02/15/17 08:08 02/15/17 08:08 02/15/17 08:08 02/15/17 08:08 02/15/17 08:08 Intake and Output: 02/15/17 02/15/17 06:59 18:59 Intake Total 600 Output Total 900 Balance -300 - Medications Medications: Current Medications Acetaminophen (Tylenol 325mg Tab) 650 mg PO Q6H PRN PRN Reason: Pain, Mild (1-3) Acetaminophen (Tylenol 325mg Tab) 650 mg PO Q6H PRN PRN Reason: Fever >100.4 F Acetazolamide (Diamox Sequels 500 Mg Sr Cap) 500 mg PO DAILY [facility] Last Admin: 02/15/17 08:40 Dose: 500 mg Albuterol/Ipratropium (Duoneb 3 Mg/0.5 Mg (3 Ml) Ud) 3 ml INH RQ4 [facility] Last Admin: 02/15/17 07:54 Dose: 3 ml Albuterol/Ipratropium (Duoneb 3 Mg/0.5 Mg (3 Ml) Ud) 3 ml INH RQ4 PRN PRN Reason: Shortness of Breath Last Admin: 02/13/17 10:05 Dose: 3 ml Bisacodyl (Dulcolax) 10 mg [place] DAILY PRN PRN Reason: Constipation Last Admin: 02/12/17 20:13 Dose: 10 mg Docusate Sodium (Colace) 100 mg PO BID PRN PRN Reason: Constipation Last Admin: 02/08/17 20:35 Dose: 100 mg Folic Acid (Folic Acid) 1 mg PO DAILY [facility] Last Admin: 02/15/17 08:40 Dose: 1 mg Lidocaine (Lidoderm) 1 ea TD DAILY [facility] Last Admin: 02/15/17 08:40 Dose: 1 ea Magnesium Hydroxide (Milk Of Magnesia) 30 ml PO DAILY PRN PRN Reason: Constipation Last Admin: 02/12/17 20:13 Dose: 30 ml Multivitamins/Minerals (Therapeutic-M Tab) 1 tab PO DAILY [facility] Last Admin: 02/15/17 08:39 Dose: 1 tab Nicotine (Nicoderm Cq) 1 patch TD DAILY [facility] Last Admin: 02/15/17 08:39 Dose: 1 patch Nystatin (Mycostatin Cream) 1 applic TOP TID [facility] Nystatin (Nystop Topical Powder) 1 applic TOP TID [facility] Ondansetron HCl (Zofran Inj) 4 mg IVP Q6H PRN PRN Reason: Nausea/Vomiting Fluticasone/Salmeterol (Advair Diskus 250/50) 1 puff IH Q12 [facility] Last Admin: 02/15/17 08:38 Dose: 1 puff Thiamine HCl (Vitamin B1 Tab) 100 mg PO BID [facility] - Labs Labs: 02/14/17 04:20 02/14/17 04:20 PT 17.3 Seconds (9.8-13.1) H 02/09/17 11:55 INR 1.5 (0.9-1.2) H 02/09/17 11:55 APTT 19.7 Seconds (25.6-37.1) L 02/09/17 11:55 - Constitutional Appears: Non-toxic - Head Exam Head Exam: NORMOCEPHALIC - Eye Exam Eye Exam: PERRL - ENT Exam ENT Exam: Mucous Membranes Dry - Neck Exam Neck Exam: absent: Lymphadenopathy, Thyromegaly - Respiratory Exam Respiratory Exam: Decreased Breath Sounds - Cardiovascular Exam Cardiovascular Exam: REGULAR RHYTHM, +S1, +S2 - GI/Abdominal Exam GI & Abdominal Exam: Distended, Soft - Rectal Exam Rectal Exam: Deferred - Exam Exam: NORMAL INSPECTION Assessment and Plan (1) Bilateral pneumonia Status: Acute (2) COPD exacerbation Status: Acute (3) Respiratory distress Status: Acute (4) Severe sepsis Status: Acute (5) Alcohol abuse Status: Acute
[2017-02-15] MEDS ORDERED: Magnesium Sulfate 2 gm/50 ml 2 GM/50 ML BAG IVPB ONE (17:49)
--- NOTE | 2017-02-15 18:54 | CP.PCM.CON ---
Past Patient History - Infectious Disease Hx of Infectious Diseases: None - Tetanus Immunizations Tetanus Immunization: Unknown - Past Medical History & Family History Past Medical History?: Yes - Past Social History Smoking Status: Current Some Days Smoker Chewing Tobacco Use: No Cigar Use: No Alcohol: > 2 Drinks/Day Home Situation {Lives}: With Family Domestic Violence: Negative - CARDIAC Hx Cardiac Disorders: No - PULMONARY Hx Chronic Obstructive Pulmonary Disease (COPD): Yes - NEUROLOGICAL Hx Neurological Disorder: No - HEENT Hx HEENT Problems: No - RENAL Hx Chronic Kidney Disease: No - ENDOCRINE/METABOLIC Hx Endocrine Disorders: No - HEMATOLOGICAL/ONCOLOGICAL Hx Blood Disorders: No - INTEGUMENTARY Hx Dermatological Problems: No - MUSCULOSKELETAL/RHEUMATOLOGICAL Hx Back Pain: Yes (lower back pain ) - GASTROINTESTINAL Hx Fatty Liver Disease: Yes - GENITOURINARY/GYNECOLOGICAL Hx Genitourinary Disorders: No - PSYCHIATRIC Hx Substance Use: No - SURGICAL HISTORY Hx Surgeries: No - ANESTHESIA Hx Anesthesia: No Meds Allergies/Adverse Reactions: Allergies Allergy/AdvReac Type Severity Reaction Status Date / Time No Known Allergies Allergy Verified 01/27/17 12:43 - Medications Medications: Current Medications Acetaminophen (Tylenol 325mg Tab) 650 mg PO Q6H PRN PRN Reason: Pain, Mild (1-3) Acetaminophen (Tylenol 325mg Tab) 650 mg PO Q6H PRN PRN Reason: Fever >100.4 F Albuterol/Ipratropium (Duoneb 3 Mg/0.5 Mg (3 Ml) Ud) 3 ml INH RQ4 [facility] Last Admin: 02/15/17 15:43 Dose: 3 ml Albuterol/Ipratropium (Duoneb 3 Mg/0.5 Mg (3 Ml) Ud) 3 ml INH RQ4 PRN PRN Reason: Shortness of Breath Last Admin: 02/13/17 10:05 Dose: 3 ml Bisacodyl (Dulcolax) 10 mg [place] DAILY PRN PRN Reason: Constipation Last Admin: 02/12/17 20:13 Dose: 10 mg Docusate Sodium (Colace) 100 mg PO BID PRN PRN Reason: Constipation Last Admin: 02/08/17 20:35 Dose: 100 mg Folic Acid (Folic Acid) 1 mg PO DAILY [facility] Last Admin: 02/15/17 08:40 Dose: 1 mg Lactulose (Enulose) 20 gm PO DAILY PRN PRN Reason: Constipation Lidocaine (Lidoderm) 1 ea TD DAILY [facility] Last Admin: 02/15/17 08:40 Dose: 1 ea Magnesium Hydroxide (Milk Of Magnesia) 30 ml PO DAILY PRN PRN Reason: Constipation Last Admin: 02/12/17 20:13 Dose: 30 ml Multivitamins/Minerals (Therapeutic-M Tab) 1 tab PO DAILY [facility] Last Admin: 02/15/17 08:39 Dose: 1 tab Nicotine (Nicoderm Cq) 1 patch TD DAILY [facility] Last Admin: 02/15/17 08:39 Dose: 1 patch Nystatin (Mycostatin Cream) 1 applic TOP TID [facility] Last Admin: 02/15/17 16:51 Dose: 1 applic Nystatin (Nystop Topical Powder) 1 applic TOP TID [facility] Last Admin: 02/15/17 16:52 Dose: 1 applic Ondansetron HCl (Zofran Inj) 4 mg IVP Q6H PRN PRN Reason: Nausea/Vomiting Fluticasone/Salmeterol (Advair Diskus 250/50) 1 puff IH Q12 [facility] Last Admin: 02/15/17 08:38 Dose: 1 puff Thiamine HCl (Vitamin B1 Tab) 100 mg PO BID [facility] Last Admin: 02/15/17 16:53 Dose: 100 mg Results - Vital Signs Recent Vital Signs: Last Vital Signs Temp 99.1 F 02/15/17 15:47 Pulse 94 H 02/15/17 15:47 Resp 20 02/15/17 15:47 BP 119/77 02/15/17 15:47 Pulse Ox 100 02/15/17 15:47 - Labs Result Diagrams: 02/14/17 04:20 02/14/17 04:20
--- NOTE | 2017-02-15 18:54 | CP.PCM.CON ---
History of Present Illness - History of Present Illness History of Present Illness: CONSULT DICTATED METABOLIC ENCEPHALOPATHY R/O CENTRAL CAUSE MRI/EEG CORRECT ELECTROLYTE THIAMIN PT/OT DVT PROPYLAXIS Past Patient History - Infectious Disease Hx of Infectious Diseases: None - Tetanus Immunizations Tetanus Immunization: Unknown - Past Medical History & Family History Past Medical History?: Yes - Past Social History Smoking Status: Current Some Days Smoker Chewing Tobacco Use: No Cigar Use: No Alcohol: > 2 Drinks/Day Home Situation {Lives}: With Family Domestic Violence: Negative - CARDIAC Hx Cardiac Disorders: No - PULMONARY Hx Chronic Obstructive Pulmonary Disease (COPD): Yes - NEUROLOGICAL Hx Neurological Disorder: No - HEENT Hx HEENT Problems: No - RENAL Hx Chronic Kidney Disease: No - ENDOCRINE/METABOLIC Hx Endocrine Disorders: No - HEMATOLOGICAL/ONCOLOGICAL Hx Blood Disorders: No - INTEGUMENTARY Hx Dermatological Problems: No - MUSCULOSKELETAL/RHEUMATOLOGICAL Hx Back Pain: Yes (lower back pain ) - GASTROINTESTINAL Hx Fatty Liver Disease: Yes - GENITOURINARY/GYNECOLOGICAL Hx Genitourinary Disorders: No - PSYCHIATRIC Hx Substance Use: No - SURGICAL HISTORY Hx Surgeries: No - ANESTHESIA Hx Anesthesia: No Meds Allergies/Adverse Reactions: Allergies Allergy/AdvReac Type Severity Reaction Status Date / Time No Known Allergies Allergy Verified 01/27/17 12:43 - Medications Medications: Current Medications Acetaminophen (Tylenol 325mg Tab) 650 mg PO Q6H PRN PRN Reason: Pain, Mild (1-3) Acetaminophen (Tylenol 325mg Tab) 650 mg PO Q6H PRN PRN Reason: Fever >100.4 F Albuterol/Ipratropium (Duoneb 3 Mg/0.5 Mg (3 Ml) Ud) 3 ml INH RQ4 [facility] Last Admin: 02/15/17 15:43 Dose: 3 ml Albuterol/Ipratropium (Duoneb 3 Mg/0.5 Mg (3 Ml) Ud) 3 ml INH RQ4 PRN PRN Reason: Shortness of Breath Last Admin: 02/13/17 10:05 Dose: 3 ml Bisacodyl (Dulcolax) 10 mg [place] DAILY PRN PRN Reason: Constipation Last Admin: 02/12/17 20:13 Dose: 10 mg Docusate Sodium (Colace) 100 mg PO BID PRN PRN Reason: Constipation Last Admin: 02/08/17 20:35 Dose: 100 mg Folic Acid (Folic Acid) 1 mg PO DAILY [facility] Last Admin: 02/15/17 08:40 Dose: 1 mg Lactulose (Enulose) 20 gm PO DAILY PRN PRN Reason: Constipation Lidocaine (Lidoderm) 1 ea TD DAILY [facility] Last Admin: 02/15/17 08:40 Dose: 1 ea Magnesium Hydroxide (Milk Of Magnesia) 30 ml PO DAILY PRN PRN Reason: Constipation Last Admin: 02/12/17 20:13 Dose: 30 ml Multivitamins/Minerals (Therapeutic-M Tab) 1 tab PO DAILY [facility] Last Admin: 02/15/17 08:39 Dose: 1 tab Nicotine (Nicoderm Cq) 1 patch TD DAILY [facility] Last Admin: 02/15/17 08:39 Dose: 1 patch Nystatin (Mycostatin Cream) 1 applic TOP TID [facility] Last Admin: 02/15/17 16:51 Dose: 1 applic Nystatin (Nystop Topical Powder) 1 applic TOP TID [facility] Last Admin: 02/15/17 16:52 Dose: 1 applic Ondansetron HCl (Zofran Inj) 4 mg IVP Q6H PRN PRN Reason: Nausea/Vomiting Fluticasone/Salmeterol (Advair Diskus 250/50) 1 puff IH Q12 [facility] Last Admin: 02/15/17 08:38 Dose: 1 puff Thiamine HCl (Vitamin B1 Tab) 100 mg PO BID [facility] Last Admin: 02/15/17 16:53 Dose: 100 mg Results - Vital Signs Recent Vital Signs: Last Vital Signs Temp 99.1 F 02/15/17 15:47 Pulse 94 H 02/15/17 15:47 Resp 20 02/15/17 15:47 BP 119/77 02/15/17 15:47 Pulse Ox 100 02/15/17 15:47 - Labs Result Diagrams: 02/14/17 04:20 02/14/17 04:20
[2017-02-16] MEDS: Albuterol-Ipratrop 3 mg / 0.5 (3 ml) UD INH SCH ×6 (00:52→19:15)
[2017-02-16 05:52] LABS: HEMATOCRIT 26.1 % (34.0-47.0); MEAN CELL VOLUME 106.4 fl (81.0-99.0); MEAN CORPUSCULAR HEMOGLOBIN 35.1 pg (27.0-31.0); WHITE BLOOD COUNT 12.5 K/uL (4.8-10.8)
[2017-02-16 06:46] LABS: ALB/GLOB RATIO 0.7 (1.0-2.1); ALKALINE PHOSPHATASE 167 U/L (38-126); ALT/SGPT 56 U/L (9-52); AST/SGOT 32 U/L (14-36); BILIRUBIN,TOTAL 2.9 mg/dl (0.2-1.3); BLOOD UREA NITROGEN 10 mg/dl (7-17); CALCIUM 8.8 mg/dL (8.4-10.2); CARBON DIOXIDE 23 mmol/L (22-30); CHLORIDE 110 mmol/L (98-107); GFR AFRICAN-AMERICAN > 60; GLUCOSE,RANDOM 96 mg/dL (65-105); MAGNESIUM 1.6 MG/DL (1.6-2.3); PHOSPHOROUS 3.8 mg/dl (2.5-4.5); POTASSIUM 3.3 MMOL/L (3.6-5.0); SODIUM 140 mmol/l (132-148); TOTAL PROTEIN 6.9 G/DL (6.3-8.2)
[2017-02-16] MEDS: Fluticasone-Salmeterol 250-50mcg Diskus IH SCH ×2 (08:35→21:10)
[2017-02-16] MEDS: Lidocaine 5% Patch TD SCH (08:36)
[2017-02-16] MEDS: Multivitamin With Minerals Tab PO SCH (08:38)
--- NOTE | 2017-02-16 08:47 | CON ---
REASON FOR THE CONSULTATION: Change in mental status. CHIEF COMPLAINT: The patient was admitted with history of possible alcohol abuse with lower back pain. The patient was treated symptomatically and workup for back pain as well as treated for the pain management. During the hospital course, the patient developed change in mental status and I was called in for neurological evaluation. HISTORY OF PRESENT ILLNESS: Ms. Zehra Jules is a 51-year-old moderately obese right-handed female, usual state of health, presenting with about 2 weeks' history of lower back pain and upper back pain. No history of fall. No history of trauma. She used to walk independently. The patient also developed a shortness of breath during the course of the hospitalization. The patient did have workup for MRI of the thoracic spine showed some disk problem and pathological fracture without pressing the thecal sac. Since she was carrying alcohol history and related cirrhosis of liver, the patient was treated with Librium in the beginning and pain management was given morphine at times. Her mental status was gotten worse due to the medication and all medications being tapered off, since then the patient slightly improved. However, she is not back to her baseline activities. At present, she is complaining of back pain and leg weakness. The patient is examined in the presence of her sister. PAST MEDICAL HISTORY: COPD, fatty liver, cirrhosis of the liver, history of alcohol abuse, smoker. REVIEW OF SYSTEMS: A 12-point systems had been reviewed. From neuro, change in mental status and leg weakness. MEDICATIONS: Albuterol, DuoNeb inhalers, folic acid, Lidoderm, milk of magnesia, Mycostatin, nicotine patch, nystatin, acetaminophen, multivitamin, thiamine and Zofran. PHYSICAL EXAMINATION: VITAL SIGNS: Blood pressure 119/77, mean arterial pressure of 91, respiratory rate 16, temperature 99.1, pulse rate 94, regular. NECK: Supple. No carotid bruits. HEART: Heart sounds, tachycardia. NEUROLOGIC: The patient is examined in the presence of her sister. The patient is awake, oriented to person only. She follows one-step command at times. Speech is spontaneous, but not continuous. No sign of hallucination. No sign of suicidal ideation. No sign of confabulation. Cranial nerve examination: Respond to visual threat. Pupils reactive to light. Extraocular movement normal. No facial sensory deficit. No facial asymmetry. Gag seems to be intact. She is eating by her own. Motor examination: She moves both upper extremities spontaneously. Lower extremities are externally rotated. Sensory examination: Respond to pain symmetrically on both sides. However, significant distal sensorimotor neuropathy noted. Deep tendon reflexes are absent. Plantars are mute on both sides. WORKUP: Labs, WBC 8.2, hemoglobin 8.6, hematocrit 26.1, platelet 80. Sodium 139, potassium 3.9, chloride 101, bicarbonate 31, BUN 13, creatinine 0.8, GFR more than 60, magnesium is 1.2, bilirubin 2.1, AST 42, ALT 68, alkaline phosphatase 142. The patient did have MRI of the thoracic spine and lumbosacral spine. Lumbosacral spine showed degenerative disease without any significant foraminal stenosis. Thoracic spine showed compression fracture at T7, minimally at T10. CONCLUSION: Ms. Zehra Jules has been presenting with bilateral cerebral dysfunction with preceding alcohol abuse in the past, have been treated with multiple sedatives. The current examination also showed evidence of paraparesis, which is new as per the patient's sister. The workup all showed no structural cause that could explain her leg weakness and paraparesis. This could be a central cause unless otherwise proved. The patient has also significant bilateral distal symmetric sensorimotor neuropathy and change in mental status could be metabolic, toxic or infectious, which I doubt it. RECOMMENDATIONS: 1. MRI of the brain to rule out any structural cause. 2. EEG to be done. 3. Hydration. Keep the electrolytes normal range, correct the anemia. 4. DVT prophylaxis. BUN and multivitamins should be given. The patient's condition has been discussed with her physician. The patient will be followed closely with you. Mil Mora MD
[2017-02-16] MEDS ORDERED: Potassium Chloride 20 mEq/15 ml LIQ UD PO ONE (10:36)
--- NOTE | 2017-02-16 13:13 | CP.PCM.PN ---
Subjective - Date & Time of Evaluation Date of Evaluation: 02/16/17 Time of Evaluation: 09:00 - Subjective Subjective: srtarted back on IV rx repeat c/s pending Objective - Vital Signs/Intake and Output Vital Signs (last 24 hours): Temp Pulse Resp BP Pulse Ox 98.5 F 91 H 20 110/66 100 02/16/17 12:00 02/16/17 12:00 02/16/17 12:00 02/16/17 12:00 02/16/17 12:00 Intake and Output: 02/16/17 02/16/17 06:59 18:59 Output Total 400 Balance -400 - Medications Medications: Current Medications Acetaminophen (Tylenol 325mg Tab) 650 mg PO Q6H PRN PRN Reason: Pain, Mild (1-3) Acetaminophen (Tylenol 325mg Tab) 650 mg PO Q6H PRN PRN Reason: Fever >100.4 F Albuterol/Ipratropium (Duoneb 3 Mg/0.5 Mg (3 Ml) Ud) 3 ml INH RQ4 [facility] Last Admin: 02/16/17 12:24 Dose: 3 ml Albuterol/Ipratropium (Duoneb 3 Mg/0.5 Mg (3 Ml) Ud) 3 ml INH RQ4 PRN PRN Reason: Shortness of Breath Last Admin: 02/13/17 10:05 Dose: 3 ml Bisacodyl (Dulcolax) 10 mg MS DAILY PRN PRN Reason: Constipation Last Admin: 02/12/17 20:13 Dose: 10 mg Docusate Sodium (Colace) 100 mg PO BID PRN PRN Reason: Constipation Last Admin: 02/08/17 20:35 Dose: 100 mg Folic Acid (Folic Acid) 1 mg PO DAILY [facility] Last Admin: 02/16/17 08:35 Dose: 1 mg Azithromycin 500 mg/ Sodium (Chloride) 250 mls @ 250 mls/hr IVPB DAILY [facility] PRN Reason: Protocol Vancomycin HCl 1 gm/ Sodium (Chloride) 250 mls @ 166.667 mls/hr IVPB DAILY [facility] PRN Reason: Protocol Piperacillin Sod/Tazobactam (Sod 3.375 gm/ Sodium Chloride) 100 mls @ 100 mls/ hr IVPB Q6 [facility] PRN Reason: Protocol Lactulose (Enulose) 20 gm PO BID [facility] Lidocaine (Lidoderm) 1 ea TD DAILY [facility] Last Admin: 02/16/17 08:36 Dose: 1 ea Magnesium Hydroxide (Milk Of Magnesia) 30 ml PO DAILY PRN PRN Reason: Constipation Last Admin: 02/12/17 20:13 Dose: 30 ml Multivitamins/Minerals (Therapeutic-M Tab) 1 tab PO DAILY [facility] Last Admin: 02/16/17 08:38 Dose: 1 tab Nicotine (Nicoderm Cq) 1 patch TD DAILY [facility] Last Admin: 02/16/17 08:37 Dose: 1 patch Nystatin (Mycostatin Cream) 1 applic TOP TID [facility] Last Admin: 02/16/17 12:27 Dose: 1 applic Nystatin (Nystop Topical Powder) 1 applic TOP TID [facility] Last Admin: 02/16/17 08:48 Dose: 1 applic Ondansetron HCl (Zofran Inj) 4 mg IVP Q6H PRN PRN Reason: Nausea/Vomiting Fluticasone/Salmeterol (Advair Diskus 250/50) 1 puff IH Q12 [facility] Last Admin: 02/16/17 08:35 Dose: 1 puff Thiamine HCl (Vitamin B1 Tab) 100 mg PO DAILY [facility] Last Admin: 02/16/17 12:14 Dose: 100 mg - Labs Labs: 02/16/17 04:30 02/16/17 04:30 PT 17.3 Seconds (9.8-13.1) H 02/09/17 11:55 INR 1.5 (0.9-1.2) H 02/09/17 11:55 APTT 19.7 Seconds (25.6-37.1) L 02/09/17 11:55 - Constitutional Appears: Non-toxic, Chronically Ill - Eye Exam Eye Exam: PERRL. absent: Scleral icterus - ENT Exam ENT Exam: Mucous Membranes Dry - Neck Exam Neck Exam: absent: Lymphadenopathy - Respiratory Exam Respiratory Exam: Decreased Breath Sounds - Cardiovascular Exam Cardiovascular Exam: REGULAR RHYTHM - GI/Abdominal Exam GI & Abdominal Exam: Distended Assessment and Plan (1) Bilateral pneumonia Status: Acute (2) COPD exacerbation Status: Acute (3) Respiratory distress Status: Acute (4) Severe sepsis Status: Acute (5) Alcohol abuse Status: Acute
--- NOTE | 2017-02-16 14:11 | MRI ---
PROCEDURE: MRI BRAIN WITHOUT CONTRAST HISTORY: AMS COMPARISON: None. TECHNIQUE: Multiplanar, multisequence MR images of the brain were obtained without intravenous contrast enhancement. FINDINGS: HEMORRHAGE: None DWI: No evidence of an acute or early subacute infarction. BRAIN PARENCHYMA: Diffuse expansion of the ventriculosulcal and cisternal spaces is appreciated compatible with mild diffuse cerebral atrophy and chronic microangiopathy is not completely exlcused either. Note that motion artifacts render this exam rather limited. No prominent findings apparent. VENTRICLES: Unremarkable. No hydrocephalus. CRANIUM: Unremarkable. ORBITS: Grossly unremarkable. PARANASAL SINUSES/MASTOIDS: Right mastoid effusions identified. VASCULAR SYSTEM: Skull base flow voids intact. OTHER FINDINGS: None. IMPRESSION: Mild diffuse cerebral atrophy is encountered. No gross findings, however, the exam was limited somewhat due to motion artifacts. The patient is claustrophobic. Incidental right mastoid effusions identified.
[2017-02-16] MEDS: Azithromycin 500 MG in Sodium Chloride 0.9% 250 ML IVPB SCH (15:37)
[2017-02-16] MEDS: Piperacillin/Tazobact 3.375 GM in Sodium Chloride 0.9% 100 ML IVPB SCH ×2 (16:21→21:11)
--- NOTE | 2017-02-16 16:36 | CP.PCM.PN ---
Subjective - Date & Time of Evaluation Date of Evaluation: 02/16/17 Time of Evaluation: 14:00 - Subjective Subjective: Patient seen and examined bedside. Lethargic , somnolent. Responding to verbal command, maintaining her airway with O2 Sat 98-100% on 2 L O2 via NC. Lying in bed in NAD Tmax 100 last 24 hours and WBC trending up to 12 K , ESR 105 Ammonia level 87 Objective - Vital Signs/Intake and Output Vital Signs (last 24 hours): Temp Pulse Resp BP Pulse Ox 98.0 F 97 H 17 119/72 98 02/16/17 15:57 02/16/17 15:57 02/16/17 15:57 02/16/17 15:57 02/16/17 15:57 Intake and Output: 02/16/17 02/16/17 06:59 18:59 Output Total 400 Balance -400 - Medications Medications: Current Medications Acetaminophen (Tylenol 325mg Tab) 650 mg PO Q6H PRN PRN Reason: Pain, Mild (1-3) Acetaminophen (Tylenol 325mg Tab) 650 mg PO Q6H PRN PRN Reason: Fever >100.4 F Albuterol/Ipratropium (Duoneb 3 Mg/0.5 Mg (3 Ml) Ud) 3 ml INH RQ4 [facility] Last Admin: 02/16/17 15:51 Dose: 3 ml Albuterol/Ipratropium (Duoneb 3 Mg/0.5 Mg (3 Ml) Ud) 3 ml INH RQ4 PRN PRN Reason: Shortness of Breath Last Admin: 02/13/17 10:05 Dose: 3 ml Bisacodyl (Dulcolax) [address] DAILY PRN PRN Reason: Constipation Last Admin: 02/12/17 20:13 Dose: 10 mg Docusate Sodium (Colace) 100 mg PO BID PRN PRN Reason: Constipation Last Admin: 02/08/17 20:35 Dose: 100 mg Folic Acid (Folic Acid) 1 mg PO DAILY [facility] Last Admin: 02/16/17 08:35 Dose: 1 mg Azithromycin 500 mg/ Sodium (Chloride) 250 mls @ 250 mls/hr IVPB DAILY [facility] PRN Reason: Protocol Last Admin: 02/16/17 15:37 Dose: 250 mls/hr Vancomycin HCl 1 gm/ Sodium (Chloride) 250 mls @ 166.667 mls/hr IVPB DAILY [facility] PRN Reason: Protocol Last Admin: 02/16/17 14:00 Dose: 166.667 mls/hr Piperacillin Sod/Tazobactam (Sod 3.375 gm/ Sodium Chloride) 100 mls @ 100 mls/ hr IVPB Q6 [facility] PRN Reason: Protocol Last Admin: 02/16/17 16:21 Dose: 100 mls/hr Lactulose (Enulose) 20 gm PO BID [facility] Last Admin: 02/16/17 16:26 Dose: 20 gm Lidocaine (Lidoderm) 1 ea TD DAILY [facility] Last Admin: 02/16/17 08:36 Dose: 1 ea Magnesium Hydroxide (Milk Of Magnesia) 30 ml PO DAILY PRN PRN Reason: Constipation Last Admin: 02/12/17 20:13 Dose: 30 ml Multivitamins/Minerals (Therapeutic-M Tab) 1 tab PO DAILY [facility] Last Admin: 02/16/17 08:38 Dose: 1 tab Nicotine (Nicoderm Cq) 1 patch TD DAILY [facility] Last Admin: 02/16/17 08:37 Dose: 1 patch Nystatin (Mycostatin Cream) 1 applic TOP TID [facility] Last Admin: 02/16/17 16:23 Dose: 1 applic Nystatin (Nystop Topical Powder) 1 applic TOP TID [facility] Last Admin: 02/16/17 16:23 Dose: 1 applic Ondansetron HCl (Zofran Inj) 4 mg IVP Q6H PRN PRN Reason: Nausea/Vomiting Fluticasone/Salmeterol (Advair Diskus 250/50) 1 puff IH Q12 [facility] Last Admin: 02/16/17 08:35 Dose: 1 puff Thiamine HCl (Vitamin B1 Tab) 100 mg PO DAILY [facility] Last Admin: 02/16/17 12:14 Dose: 100 mg - Labs Labs: 02/16/17 04:30 02/16/17 04:30 PT 17.3 Seconds (9.8-13.1) H 02/09/17 11:55 INR 1.5 (0.9-1.2) H 02/09/17 11:55 APTT 19.7 Seconds (25.6-37.1) L 02/09/17 11:55 - Constitutional Appears: Chronically Ill, Other (obese, somonlent , lethargic , responding to verbal command , maintains her airway ) - Head Exam Head Exam: NORMOCEPHALIC - Eye Exam Eye Exam: EOMI, PERRL - ENT Exam ENT Exam: Mucous Membranes Moist, Normal Exam - Neck Exam Neck Exam: Normal Inspection Additional comments: short neck - Respiratory Exam Respiratory Exam: Prolonged Expiratory Phase, Rhonchi. absent: Wheezes, Stridor Additional comments: coarse breath sounds bilaterally - Cardiovascular Exam Cardiovascular Exam: Tachycardia, REGULAR RHYTHM, RRR, +S1, +S2. absent: JVD - GI/Abdominal Exam GI & Abdominal Exam: Soft, Normal Bowel Sounds. absent: Distended, Guarding, Tenderness, Rebound - Rectal Exam Rectal Exam: Deferred - Extremities Exam Extremities Exam: Normal Capillary Refill, Pedal Edema (1+ bilaterally). absent : Calf Tenderness - Neurological Exam Additional comments: lethargic,somnolent responds to verbal commands, follows simple commands moves all 4 extremities no facial asymmetry mumbling incoherent speech - Psychiatric Exam Psychiatric exam: Flat Affect - Skin Skin Exam: Dry, Pallor, Warm Assessment and Plan - Assessment and Plan (Free Text) Assessment: 51 y/o female with COPD , fatty liver, Chronic ETOH abuse ( daily 8 cups of 8 ounce vodka ) , smoker , chronic lower back pain brought to ER for evaluation by EMS for facial and lower extremity swelling , SOB and lower back pain. As per patient she has some baseline SOB with ambulation and has chronic lower back pain . Pt was having some lower back pain for which she took some Motrin and Advil PM. and when she woke up she noticed her face and eyes to be swollen and her lower extremities were swollen as well. She could not get out of bed and was having significant back pain . In the ED , was found to be in respiratory distress,with dyspnea RR 35 O2sat 94 %, slightly hypotensive BP 96/65 tachycardic HR 122. She was given 2 Duonebs in the field, 125 mg IV solumedrol in ER , started on IVF and placed on High Flow O2 ,20 LPM FIO2 60 % Her ABG showed PO2 70 PCO2 35 pH 7.38 . CXR showed bilateral infiltrates worse on the right WBC found to be elevated 16.8 Hgb 10 BUN/Cr 20/1.4 rigoberto 6.6 ASt / ALT 150/26 lactic acid 2.6 ETOH levels 73 Physical exam was significant for tremors , increased work of breathing , periorbital, facial and lower extremity edema, her breath smelled of alcohol. She was admitted in ICU for close monitoring and treatment, she improved and was transferred to telemetry but became very agitated , restless , confused , tachypneic and tachycardic and so was transferred back to ICU for close monitoring. She was placed on High Flow Oxygen and started on Precedex drip and later switched to librium and Ativan PRN. She became very lethargic so all sedation medications were stopped including pain medications. CT L-S spine showed DJD and some compression fractures that could be reason for her back pain. Anesthesiology,spine surgeon were consulted . Her confusion improved somewhat and was switched to NC maintaining her O2 sat and transferred to telemetry. MRI of thoracic and Lumbar spine: Compression fractures Patient still with fluctuation of her mental status , becoming lethargic , somnolent at times but able to maintain her airway. Attempted to get in touch with her PMD - DR Sidney Suarez - on vacation, will be back Feb 21 1. Severe Sepsis- resolving Most likely secondary to multifocal pneumonia patient was hypotensive,tachycardic,hypoxemic with WBC 16.8 and CXR showed bilateral infiltrates, lactate 2.6 on admission Sputum cx positive for yeast Received full course of diflucan vanco and Zosyn ( 14 days ) and antibiotics were discontinued Tmax 100 last 12 hours and WBC trended uup to [address] chest showed persistent dense bilateral lower lobe infiltrates. Restarted Vanco , Zosyn and Zithromax IV today . ID following Repeat CBC and follow fever curve 2.Acute hypoxemic and hypercarbic respiratory failure Most likely secondary to multi lobar Pneumonia and COPD exacerbation PE ruled out - neg CTA and V/Q scan was placed on High Flow Oxygen initially , and at present on 2 liters O2 via NC maintaining her airway and saturating 98-100% d/c Opiates , sedatives and anti Psychotics as this makes pt very sedated Off PreCedex drip since 02/04 Continue Duonebs Tapered off steroids , on Advair INH Pulmonary and ID consulted Dr Mojica re consulted to re-evaluate pt Restart IV Vanco Zosyn and Zithromax since CT chest showed persistent consolidations ENT consulted and case discussed with Dr. Hernandez . Larynx appears normal , vocal cords with no mass Repeat CBC , CXR and ABG in AM 3. Multifocal Pneumonia ID and pulmonary consulted Received Vanco, Zosyn, Azithro and Diflucan for 2 weeks , so antibiotics were discontinued CT chest showed persistent bilateral lower lobe dense consolidations Resume Iv antibiotics patient is a long time smoker so will need to follow up resolution of infiltrates to rule out any underlying malignancy 4. Facial and lower extremity edema unclear etiology of facial edema , resolved TSH : normal Given Solumedrol 125mg , Benadry and Pepcid LE venous doppler negative for DVT Echo showed normal LVF EF 65 -70 % given lasix 5. ETOH abuse / Delirium Tremens/alcoholic encephalopathy was started on Precedex drip in ICU , was agitated /restless and has been off drip since 02/04 tapered off Librium continue Thiamine, Folic acid Seizure precautions/ withdrawal precautions psych consulted- rec Risperdal or Haldol for agitation however pt gets very sedated on theses meds when given.Discontinued all narcotics and psych meds Ammonia level 87 today. Started lactulose 20 gm PO BID . Will give [address] stat . Repeat ammonia in AM Call GI eval MELD score 15 6. AMS ? sec to Encephalopathy pt still lethargic , somnolent despite tx of PNA,COPD, Alcoholism, now off all sedatives and opiates Ammonia levels elevated - Started lactulose B12 level normal TSH normal CT of head x 2 : neg MRI brain shoed mil generalized atrophy F/u EEG Neurology consulted - Dr Mora 7. SUNDAR improved no prior records and unknown baseline renal function improved 8. COPD exacerbation-- improved continue Genny pulmonary consulted counseled on smoking tapered off IV solumedrol 9. Alcohol Liver Dis Bill 6.6 AST 150 on admission. Bili trending down to 2.1, afebrile CT chest showed hepatomegaly , fatty infiltration , some ascitic fluid and umbilical vein recannulization significant for portal hypertension \ US showed: Hepatomegaly with steatosis.Trace perihepatic ascites.Nonspecific gallbladder wall thickening. Gallbladder wall thickening is a nonspecific finding which can be seen with ascites, hepatitis, cholecystitis,CHF or hypoproteinemic states. patient has no abdominal pain , no fever , no signs of cholecystitis Continue monitoring GI eval MELD score 15 10. Chronic Lower back pain likely sec to Compression Fractures Ct chest also showed mild chronic compression fracture in mid thoracic spine Multiple attempts made to have pt go for CT of [place] and T spine however pt could not tolerate and could not remain still for the procedure - finally went - CT of the spine showed Acute Thoracic and Lumbar spine compression fractures Neurosurgery consulted- no NSS intervention , rec PT, Pain mgt Pain management consulted and started on Morphine and lidoderm patch . D/c morphine since patient is very somnolent and lethargic MRI spine showed no acute fracture or significant disc protrusion With urinary retention- Gaffney in place draining well now off all opiates, sedatives 11.Anemia unclear etiology Normal Iron and B12 level cont Thiamine 12. Thrombocytopenia, sec to alcohol, liver dis and meds HIT : negative d/c Lovenox plt 107 K 13.Urinary retention unclear etiology most likely secondary to immobility, pain medication Straight cath placed x 2 with 1000 ml Gaffney cath placed and draining well 14. DVT prophylaxis GI prophylaxis d/c lovenox due to thrombocytopenia Pepcid
--- NOTE | 2017-02-16 17:16 | CP.PCM.PN ---
Subjective - Date & Time of Evaluation Date of Evaluation: 02/16/17 Time of Evaluation: 17:09 - Subjective Subjective: see below Objective - Vital Signs/Intake and Output Vital Signs (last 24 hours): Temp Pulse Resp BP Pulse Ox 98.0 F 97 H 17 119/72 98 02/16/17 15:57 02/16/17 15:57 02/16/17 15:57 02/16/17 15:57 02/16/17 15:57 Intake and Output: 02/16/17 02/16/17 06:59 18:59 Output Total 400 Balance -400 - Medications Medications: Current Medications Acetaminophen (Tylenol 325mg Tab) 650 mg PO Q6H PRN PRN Reason: Pain, Mild (1-3) Acetaminophen (Tylenol 325mg Tab) 650 mg PO Q6H PRN PRN Reason: Fever >100.4 F Albuterol/Ipratropium (Duoneb 3 Mg/0.5 Mg (3 Ml) Ud) 3 ml INH RQ4 [facility] Last Admin: 02/16/17 15:51 Dose: 3 ml Albuterol/Ipratropium (Duoneb 3 Mg/0.5 Mg (3 Ml) Ud) 3 ml INH RQ4 PRN PRN Reason: Shortness of Breath Last Admin: 02/13/17 10:05 Dose: 3 ml Bisacodyl (Dulcolax) 10 mg PA DAILY PRN PRN Reason: Constipation Last Admin: 02/12/17 20:13 Dose: 10 mg Docusate Sodium (Colace) 100 mg PO BID PRN PRN Reason: Constipation Last Admin: 02/08/17 20:35 Dose: 100 mg Folic Acid (Folic Acid) 1 mg PO DAILY [facility] Last Admin: 02/16/17 08:35 Dose: 1 mg Azithromycin 500 mg/ Sodium (Chloride) 250 mls @ 250 mls/hr IVPB DAILY [facility] PRN Reason: Protocol Last Admin: 02/16/17 15:37 Dose: 250 mls/hr Vancomycin HCl 1 gm/ Sodium (Chloride) 250 mls @ 166.667 mls/hr IVPB DAILY [facility] PRN Reason: Protocol Last Admin: 02/16/17 14:00 Dose: 166.667 mls/hr Piperacillin Sod/Tazobactam (Sod 3.375 gm/ Sodium Chloride) 100 mls @ 100 mls/ hr IVPB Q6 [facility] PRN Reason: Protocol Last Admin: 02/16/17 16:21 Dose: 100 mls/hr Lactulose (Enulose) 20 gm PO BID [facility] Last Admin: 02/16/17 16:26 Dose: 20 gm Lidocaine (Lidoderm) 1 ea TD DAILY [facility] Last Admin: 02/16/17 08:36 Dose: 1 ea Magnesium Hydroxide (Milk Of Magnesia) 30 ml PO DAILY PRN PRN Reason: Constipation Last Admin: 02/12/17 20:13 Dose: 30 ml Multivitamins/Minerals (Therapeutic-M Tab) 1 tab PO DAILY [facility] Last Admin: 02/16/17 08:38 Dose: 1 tab Nicotine (Nicoderm Cq) 1 patch TD DAILY [facility] Last Admin: 02/16/17 08:37 Dose: 1 patch Nystatin (Mycostatin Cream) 1 applic TOP TID [facility] Last Admin: 02/16/17 16:23 Dose: 1 applic Nystatin (Nystop Topical Powder) 1 applic TOP TID [facility] Last Admin: 02/16/17 16:23 Dose: 1 applic Ondansetron HCl (Zofran Inj) 4 mg IVP Q6H PRN PRN Reason: Nausea/Vomiting Fluticasone/Salmeterol (Advair Diskus 250/50) 1 puff IH Q12 [facility] Last Admin: 02/16/17 08:35 Dose: 1 puff Thiamine HCl (Vitamin B1 Tab) 100 mg PO DAILY [facility] Last Admin: 02/16/17 12:14 Dose: 100 mg - Labs Labs: 02/16/17 04:30 02/16/17 04:30 PT 17.3 Seconds (9.8-13.1) H 02/09/17 11:55 INR 1.5 (0.9-1.2) H 02/09/17 11:55 APTT 19.7 Seconds (25.6-37.1) L 02/09/17 11:55 Assessment and Plan - Assessment and Plan (Free Text) Assessment: ENT Consult CC unable to provide HPI 51 y/o female with multiple medical problems including hepatic encephalopathy now with prolonged hospital stay. she has been having SOB and noisy breathing, and i am asked to assess the larynx for any abnormalities. the patient is currently obtunded (her baseline per medical staff) and is unable to provide any history. PMH COPD, Etoh abuse, fatty liver Allergies NKDA Exam awake, somnolent, resting comfortably normal breathing; no stridor or noise neck soft, no swelling oc/op clear, no palate swelling tongue normal Fiberoptic Laryngoscopy: no hypopharyngeal or laryngeal swelling; omega epiglottis (normal anatomy); b/l vocal cords symmetric and mobile; no masses or lesions; airway widely patent; difficult to assess for paradoxical vocal cord motion due to her lack of cooperation / somnolent state Impression normal laryngeal anatomy call with questions or concerns d/w Dr. Arora
[2017-02-16] MEDS ORDERED: Lactulose 10 gm/15 ml (Rectal Use) PR STA (18:06)
[2017-02-16] MEDS: Nasal Spray(Ocean spray) NAS SCH (21:16)
[2017-02-17] MEDS: Albuterol-Ipratrop 3 mg / 0.5 (3 ml) UD INH SCH ×7 (00:06→23:50)
[2017-02-17] MEDS: Nasal Spray(Ocean spray) NAS SCH ×6 (01:17→22:30)
[2017-02-17] MEDS: Piperacillin/Tazobact 3.375 GM in Sodium Chloride 0.9% 100 ML IVPB SCH ×4 (04:14→22:35)
[2017-02-17 05:51] LABS: HEMATOCRIT 25.7 % (34.0-47.0); MEAN CELL VOLUME 107.3 fl (81.0-99.0); MEAN CORPUSCULAR HEMOGLOBIN 34.6 pg (27.0-31.0); MEAN CORPUSCULAR HGB CONC 32.2 g/dL (33.0-37.0); RED CELL DISTRIBUTION WIDTH 17.5 % (11.5-14.5); WHITE BLOOD COUNT 12.3 K/uL (4.8-10.8)
[2017-02-17 06:05] LABS: ABG ALLEN TEST YES; ARTERIAL BLOOD GAS HCO3 22.4 mmol/L (21-28); ARTERIAL BLOOD GAS MODE 2LNC; ARTERIAL BLOOD GAS O2 CAPACITY 11.6 mL/dL (16-24); ARTERIAL BLOOD GAS O2 CONTENT 11.5 ML/dL (15-23); ARTERIAL BLOOD GAS PH 7.44 (7.35-7.45); ARTERIAL BLOOD GAS PO2 75 mm/Hg (80-100); ARTERIAL BLOOD HGB O2 SAT 95.3 % (95.0-98.0); CARBOXYHEMOGLOBIN 2.7 % (0.5-1.5); HHB 0.8 % (0.0-5.0); METHEMOGLOBIN 1.2 % (0.0-3.0)
[2017-02-17 06:20] LABS: ALKALINE PHOSPHATASE 166 U/L (38-126); ALT/SGPT 49 U/L (9-52); AST/SGOT 31 U/L (14-36); BILIRUBIN,TOTAL 3.2 mg/dl (0.2-1.3); BLOOD UREA NITROGEN 11 mg/dl (7-17); CALCIUM 8.5 mg/dL (8.4-10.2); CARBON DIOXIDE 20 mmol/L (22-30); CHLORIDE 116 mmol/L (98-107); GFR AFRICAN-AMERICAN > 60; GLUCOSE,RANDOM 122 mg/dL (65-105); POTASSIUM 3.1 MMOL/L (3.6-5.0); SODIUM 146 mmol/l (132-148); TOTAL PROTEIN 6.8 G/DL (6.3-8.2)
[2017-02-17 06:22] LABS: ALB/GLOB RATIO 0.7 (1.0-2.1)
[2017-02-17] MEDS ORDERED: Lactulose 10 gm/15 ml (Rectal Use) PR ONE (07:53)
--- NOTE | 2017-02-17 08:01 | CP.PCM.CON ---
<Yelena Escobedo - Last Filed: 02/17/17 12:19> History of Present Illness - History of Present Illness History of Present Illness: Gastroenterology Fellow/PGY5 Consult Note 51 year old female with history of COPD and Alcohol abuse presenting with shortness of breath and leg swelling. Since admission, treatment for severe sepsis 2/2 hypoxic/hypercarbic respiratory failure 2/2 multifocal community acquired pneumonia and COPD exacerbation. GI consultation for hepatic encephalopathy. Patient noted to have worsening confusion leading to discontinuation of Precedex, Librium, and oral analgesics. Patient noted to be difficult to arouse and not able to answer questioning. Nursing staff from yesterday and overnight confirm patient having intermittent agitation and deep sleep leading to difficulty to arouse. Confirming usually awakens late morning and tolerated puree diet. Had three bowel movements overnight with Lactulose enema and one dose of PO lactulose. Family- unable to confirm; on record review- mother-breast cancer, lung cancer, father- throat cancer Social-unable to confirm; on record review-vodka [id number] years, [id number] , prior cocaine use 30 years ago Surgery-unable to confirm; on record review-none Review of Systems - Review of Systems Review of Systems: A 12-point review of systems negative except for as above Past Patient History - Infectious Disease Hx of Infectious Diseases: None - Tetanus Immunizations Tetanus Immunization: Unknown - Past Medical History & Family History Past Medical History?: Yes - Past Social History Smoking Status: Current Some Days Smoker Chewing Tobacco Use: No Cigar Use: No Alcohol: > 2 Drinks/Day Home Situation {Lives}: With Family Domestic Violence: Negative - CARDIAC Hx Cardiac Disorders: No - PULMONARY Hx Chronic Obstructive Pulmonary Disease (COPD): Yes - NEUROLOGICAL Hx Neurological Disorder: No - HEENT Hx HEENT Problems: No - RENAL Hx Chronic Kidney Disease: No - ENDOCRINE/METABOLIC Hx Endocrine Disorders: No - HEMATOLOGICAL/ONCOLOGICAL Hx Blood Disorders: No - INTEGUMENTARY Hx Dermatological Problems: No - MUSCULOSKELETAL/RHEUMATOLOGICAL Hx Back Pain: Yes (lower back pain ) - GASTROINTESTINAL Hx Fatty Liver Disease: Yes - GENITOURINARY/GYNECOLOGICAL Hx Genitourinary Disorders: No - PSYCHIATRIC Hx Substance Use: No - SURGICAL HISTORY Hx Surgeries: No - ANESTHESIA Hx Anesthesia: No Meds Allergies/Adverse Reactions: Allergies Allergy/AdvReac Type Severity Reaction Status Date / Time No Known Allergies Allergy Verified 01/27/17 12:43 - Medications Medications: Current Medications Acetaminophen (Tylenol 325mg Tab) 650 mg PO Q6H PRN PRN Reason: Pain, Mild (1-3) Acetaminophen (Tylenol 325mg Tab) 650 mg PO Q6H PRN PRN Reason: Fever >100.4 F Albuterol/Ipratropium (Duoneb 3 Mg/0.5 Mg (3 Ml) Ud) 3 ml INH RQ4 [facility] Last Admin: 02/17/17 04:57 Dose: 3 ml Albuterol/Ipratropium (Duoneb 3 Mg/0.5 Mg (3 Ml) Ud) 3 ml INH RQ4 PRN PRN Reason: Shortness of Breath Last Admin: 02/13/17 10:05 Dose: 3 ml Bisacodyl (Dulcolax) 10 mg ND DAILY PRN PRN Reason: Constipation Last Admin: 02/12/17 20:13 Dose: 10 mg Docusate Sodium (Colace) 100 mg PO BID PRN PRN Reason: Constipation Last Admin: 02/08/17 20:35 Dose: 100 mg Folic Acid (Folic Acid) 1 mg PO DAILY [facility] Last Admin: 02/16/17 08:35 Dose: 1 mg Azithromycin 500 mg/ Sodium (Chloride) 250 mls @ 250 mls/hr IVPB DAILY [facility] PRN Reason: Protocol Last Admin: 02/16/17 15:37 Dose: 250 mls/hr Vancomycin HCl 1 gm/ Sodium (Chloride) 250 mls @ 166.667 mls/hr IVPB DAILY [facility] PRN Reason: Protocol Last Admin: 02/16/17 14:00 Dose: 166.667 mls/hr Piperacillin Sod/Tazobactam (Sod 3.375 gm/ Sodium Chloride) 100 mls @ 100 mls/ hr IVPB Q6 [facility] PRN Reason: Protocol Last Admin: 02/17/17 04:14 Dose: 100 mls/hr Lactulose (Enulose) 20 gm PO BID [facility] Last Admin: 02/16/17 16:26 Dose: 20 gm Lactulose (Generlac) 200 gm ND ONCE ONE Stop: 02/17/17 07:54 Lidocaine (Lidoderm) 1 ea TD DAILY [facility] Last Admin: 02/16/17 08:36 Dose: 1 ea Magnesium Hydroxide (Milk Of Magnesia) 30 ml PO DAILY PRN PRN Reason: Constipation Last Admin: 02/12/17 20:13 Dose: 30 ml Multivitamins/Minerals (Therapeutic-M Tab) 1 tab PO DAILY [facility] Last Admin: 02/16/17 08:38 Dose: 1 tab Nicotine (Nicoderm Cq) 1 patch TD DAILY [facility] Last Admin: 02/16/17 08:37 Dose: 1 patch Nystatin (Mycostatin Cream) 1 applic TOP TID [facility] Last Admin: 02/16/17 16:23 Dose: 1 applic Nystatin (Nystop Topical Powder) 1 applic TOP TID [facility] Last Admin: 02/16/17 16:23 Dose: 1 applic Ondansetron HCl (Zofran Inj) 4 mg IVP Q6H PRN PRN Reason: Nausea/Vomiting Fluticasone/Salmeterol (Advair Diskus 250/50) 1 puff IH Q12 [facility] Last Admin: 02/16/17 21:10 Dose: 1 puff Sodium Chloride ([place] Nasal [place]) 2 sprays GINGER Q4 [facility] Last Admin: 02/17/17 04:22 Dose: 2 spray Thiamine HCl (Vitamin B1 Tab) 100 mg PO DAILY [facility] Last Admin: 02/16/17 12:14 Dose: 100 mg Physical Exam - Constitutional Appears: Non-toxic, No Acute Distress - Head Exam Head Exam: ATRAUMATIC, NORMOCEPHALIC - Eye Exam Eye Exam: EOMI, PERRL. absent: Scleral icterus Pupil Exam: PERRL. absent: Miosis, Mydriatic - ENT Exam ENT Exam: Mucous Membranes Moist, Normal Oropharynx - Neck Exam Neck exam: Positive for: Full Rom, Normal Inspection - Respiratory Exam Respiratory Exam: Clear to Auscultation Bilateral. absent: Rales, Rhonchi, Wheezes - Cardiovascular Exam Cardiovascular Exam: RRR, +S1, +S2. absent: Gallop, Rubs - GI/Abdominal Exam GI & Abdominal Exam: Normal Bowel Sounds, Organomegaly, Soft. absent: Distended , Firm, Guarding, Rebound, Rigid, Tenderness - Extremities Exam Extremities exam: Positive for: normal inspection, pedal edema - Neurological Exam Additional comments: not oriented to person/place/time - Psychiatric Exam Psychiatric exam: Normal Affect, Normal Mood - Skin Skin Exam: Dry, Intact, Normal Color, Warm Results - Vital Signs Recent Vital Signs: Last Vital Signs Temp 97.2 F L 02/17/17 05:54 Pulse 100 H 02/17/17 05:54 Resp 16 02/17/17 05:54 BP 104/50 L 02/17/17 05:54 Pulse Ox 95 02/17/17 05:54 - Labs Result Diagrams: 02/17/17 05:00 02/17/17 05:00 Labs: Laboratory Results - last 24 hr 02/16/17 02/16/17 02/16/17 04:30 04:30 04:30 WBC RBC Hgb Hct MCV MCH MCHC RDW Plt Count PT INR pCO2 pO2 HCO3 ABG pH ABG Total CO2 ABG O2 Saturation ABG O2 Content ABG Base Excess ABG Hemoglobin ABG Carboxyhemoglobin POC ABG HHb (Measured) ABG Methemoglobin ABG O2 Capacity Dick Test A-a O2 Difference Hgb O2 Saturation Vent Mode FiO2 Sodium Potassium Chloride Carbon Dioxide Anion Gap BUN Creatinine Est GFR ( Amer) Est GFR (Non-Af Amer) Random Glucose Hemoglobin A1c 4.6 Calcium Total Bilirubin AST ALT Alkaline Phosphatase Ammonia C-React Prot High Sens > 15.00 H Total Protein Albumin Globulin Albumin/Globulin Ratio Prolactin 67.4 H RPR 02/16/17 02/17/17 02/17/17 04:30 05:00 05:00 WBC 12.3 H RBC 2.39 L Hgb 8.3 L Hct 25.7 L MCV 107.3 H MCH 34.6 H MCHC 32.2 L RDW 17.5 H Plt Count 95 L PT INR pCO2 pO2 HCO3 ABG pH ABG Total CO2 ABG O2 Saturation ABG O2 Content ABG Base Excess ABG Hemoglobin ABG Carboxyhemoglobin POC ABG HHb (Measured) ABG Methemoglobin ABG O2 Capacity Dick Test A-a O2 Difference Hgb O2 Saturation Vent Mode FiO2 Sodium 146 Potassium 3.1 L Chloride 116 H Carbon Dioxide 20 L Anion Gap 13 BUN 11 Creatinine 0.8 Est GFR ( Amer) > 60 Est GFR (Non-Af Amer) > 60 Random Glucose 122 H Hemoglobin A1c Calcium 8.5 Total Bilirubin 3.2 H AST 31 ALT 49 Alkaline Phosphatase 166 H Ammonia C-React Prot High Sens Total Protein 6.8 Albumin 2.8 L Globulin 4.0 H Albumin/Globulin Ratio 0.7 L Prolactin RPR Nonreactive 02/17/17 02/17/17 02/17/17 05:00 05:34 06:08 WBC RBC Hgb Hct MCV MCH MCHC RDW Plt Count PT 20.4 H INR 1.8 H pCO2 30 L pO2 75 L HCO3 22.4 ABG pH 7.44 ABG Total CO2 21.3 L ABG O2 Saturation 99.2 H ABG O2 Content 11.5 L ABG Base Excess -3.2 L ABG Hemoglobin 8.5 L ABG Carboxyhemoglobin 2.7 H POC ABG HHb (Measured) 0.8 ABG Methemoglobin 1.2 ABG O2 Capacity 11.6 L Dick Test Yes A-a O2 Difference 87.0 Hgb O2 Saturation 95.3 Vent Mode 2lnc FiO2 28.0 Sodium Potassium Chloride Carbon Dioxide Anion Gap BUN Creatinine Est GFR ( Amer) Est GFR (Non-Af Amer) Random Glucose Hemoglobin A1c Calcium Total Bilirubin AST ALT Alkaline Phosphatase Ammonia 76 H C-React Prot High Sens Total Protein Albumin Globulin Albumin/Globulin Ratio Prolactin RPR Assessment & Plan - Assessment and Plan (Free Text) Assessment: 51 year old female with history of COPD and Alcohol abuse presenting with shortness of breath and leg swelling. Since admission, treatment for severe sepsis 2/2 hypoxic/hypercarbic respiratory failure 2/2 multifocal community acquired pneumonia and COPD exacerbation. GI consultation for hepatic encephalopathy. Unable to confirm endoscopic history. Plan: >MELD on admission 21, today 17 >DF on admission 42 , today 52 >steroids contraindicated given active infection and encephalopathy >ordered CT Liver protocol to evaluate for HCC, cirrhosis -evaluate for ascites for possible paracentesis if present >ordered blood and urine cultures >ordered repeat Lactulose enema >continue Lactulose 20g BID, titrate 2-3 BMs/day >ordered autoimmune workup >daily MELD labs >strict I&Os >neurology managing- pending EEG >ID managing- vanc, zosyn, azithromycin >will follow clinical course <Andrés Gonzales MD - Last Filed: 02/17/17 13:55> Meds - Medications Medications: Current Medications Acetaminophen (Tylenol 325mg Tab) 650 mg PO Q6H PRN PRN Reason: Pain, Mild (1-3) Acetaminophen (Tylenol 325mg Tab) 650 mg PO Q6H PRN PRN Reason: Fever >100.4 F Albuterol/Ipratropium (Duoneb 3 Mg/0.5 Mg (3 Ml) Ud) 3 ml INH RQ4 [facility] Last Admin: 02/17/17 11:12 Dose: 3 ml Albuterol/Ipratropium (Duoneb 3 Mg/0.5 Mg (3 Ml) Ud) 3 ml INH RQ4 PRN PRN Reason: Shortness of Breath Last Admin: 02/13/17 10:05 Dose: 3 ml Bisacodyl (Dulcolax) 10 mg ND DAILY PRN PRN Reason: Constipation Last Admin: 02/12/17 20:13 Dose: 10 mg Docusate Sodium (Colace) 100 mg PO BID PRN PRN Reason: Constipation Last Admin: 02/08/17 20:35 Dose: 100 mg Folic Acid (Folic Acid) 1 mg PO DAILY [facility] Last Admin: 02/17/17 09:31 Dose: 1 mg Azithromycin 500 mg/ Sodium (Chloride) 250 mls @ 250 mls/hr IVPB DAILY [facility] PRN Reason: Protocol Last Admin: 02/17/17 10:00 Dose: 250 mls/hr Vancomycin HCl 1 gm/ Sodium (Chloride) 250 mls @ 166.667 mls/hr IVPB DAILY [facility] PRN Reason: Protocol Last Admin: 02/17/17 09:31 Dose: 166.667 mls/hr Piperacillin Sod/Tazobactam (Sod 3.375 gm/ Sodium Chloride) 100 mls @ 100 mls/ hr IVPB Q6 [facility] PRN Reason: Protocol Last Admin: 02/17/17 10:31 Dose: 100 mls/hr Dextrose/Sodium Chloride (Dextrose 5%/0.45% Ns 1000 Ml) 1,000 mls @ 60 mls/hr IV .[id number] [facility] Stop: 02/18/17 09:51 Last Admin: 02/17/17 10:13 Dose: 60 mls/hr Lactulose (Enulose) 20 gm PO BID [facility] Last Admin: 02/17/17 09:31 Dose: 20 gm Lidocaine (Lidoderm) 1 ea TD DAILY [facility] Last Admin: 02/17/17 09:32 Dose: 1 ea Magnesium Hydroxide (Milk Of Magnesia) 30 ml PO DAILY PRN PRN Reason: Constipation Last Admin: 02/12/17 20:13 Dose: 30 ml Multivitamins/Minerals (Therapeutic-M Tab) 1 tab PO DAILY [facility] Last Admin: 02/17/17 09:31 Dose: 1 tab Nicotine (Nicoderm Cq) 1 patch TD DAILY [facility] Last Admin: 02/17/17 09:32 Dose: 1 patch Nystatin (Mycostatin Cream) 1 applic TOP TID [facility] Last Admin: 02/17/17 09:33 Dose: 1 applic Nystatin (Nystop Topical Powder) 1 applic TOP TID [facility] Last Admin: 02/17/17 09:33 Dose: 1 applic Ondansetron HCl (Zofran Inj) 4 mg IVP Q6H PRN PRN Reason: Nausea/Vomiting Fluticasone/Salmeterol (Advair Diskus 250/50) 1 puff IH Q12 [facility] Last Admin: 02/17/17 09:30 Dose: 1 puff Sodium Chloride ([place] Nasal [place]) 2 sprays GINGER Q4 [facility] Last Admin: 02/17/17 09:34 Dose: 2 spray Thiamine HCl (Vitamin B1 Tab) 100 mg PO DAILY [facility] Last Admin: 02/17/17 09:31 Dose: 100 mg Results - Vital Signs Recent Vital Signs: Last Vital Signs Temp 98.9 F 02/17/17 11:52 Pulse 99 H 02/17/17 11:52 Resp 20 02/17/17 11:52 BP 124/78 02/17/17 11:52 Pulse Ox 99 02/17/17 11:52 - Labs Result Diagrams: 02/17/17 05:00 02/17/17 05:00 Labs: Laboratory Results - last 24 hr 02/16/17 02/17/17 02/17/17 04:30 05:00 05:00 WBC 12.3 H RBC 2.39 L Hgb 8.3 L Hct 25.7 L MCV 107.3 H MCH 34.6 H MCHC 32.2 L RDW 17.5 H Plt Count 95 L PT INR pCO2 pO2 HCO3 ABG pH ABG Total CO2 ABG O2 Saturation ABG O2 Content ABG Base Excess ABG Hemoglobin ABG Carboxyhemoglobin POC ABG HHb (Measured) ABG Methemoglobin ABG O2 Capacity Dick Test A-a O2 Difference Hgb O2 Saturation Vent Mode FiO2 Sodium Potassium Chloride Carbon Dioxide Anion Gap BUN Creatinine Est GFR ( Amer) Est GFR (Non-Af Amer) Random Glucose Calcium Iron TIBC % Saturation Total Bilirubin AST ALT Alkaline Phosphatase Ammonia Total Protein Albumin Globulin Albumin/Globulin Ratio Procalcitonin 0.31 RPR Nonreactive Hepatitis A IgM Ab Hep Bs Antigen Hep B Core IgM Ab Hepatitis C Antibody 02/17/17 02/17/17 02/17/17 05:00 05:00 05:00 WBC RBC Hgb Hct MCV MCH MCHC RDW Plt Count PT INR pCO2 pO2 HCO3 ABG pH ABG Total CO2 ABG O2 Saturation ABG O2 Content ABG Base Excess ABG Hemoglobin ABG Carboxyhemoglobin POC ABG HHb (Measured) ABG Methemoglobin ABG O2 Capacity Dick Test A-a O2 Difference Hgb O2 Saturation Vent Mode FiO2 Sodium 146 Potassium 3.1 L Chloride 116 H Carbon Dioxide 20 L Anion Gap 13 BUN 11 Creatinine 0.8 Est GFR ( Amer) > 60 Est GFR (Non-Af Amer) > 60 Random Glucose 122 H Calcium 8.5 Iron TIBC % Saturation Total Bilirubin 3.2 H AST 31 ALT 49 Alkaline Phosphatase 166 H Ammonia 76 H Total Protein 6.8 Albumin 2.8 L Globulin 4.0 H Albumin/Globulin Ratio 0.7 L Procalcitonin RPR Hepatitis A IgM Ab Negative Hep Bs Antigen Negative Hep B Core IgM Ab Negative Hepatitis C Antibody Negative 02/17/17 02/17/17 02/17/17 05:34 06:08 08:40 WBC RBC Hgb Hct MCV MCH MCHC RDW Plt Count PT 20.4 H INR 1.8 H pCO2 30 L pO2 75 L HCO3 22.4 ABG pH 7.44 ABG Total CO2 21.3 L ABG O2 Saturation 99.2 H ABG O2 Content 11.5 L ABG Base Excess -3.2 L ABG Hemoglobin 8.5 L ABG Carboxyhemoglobin 2.7 H POC ABG HHb (Measured) 0.8 ABG Methemoglobin 1.2 ABG O2 Capacity 11.6 L Dick Test Yes A-a O2 Difference 87.0 Hgb O2 Saturation 95.3 Vent Mode 2lnc FiO2 28.0 Sodium Potassium Chloride Carbon Dioxide Anion Gap BUN Creatinine Est GFR ( Amer) Est GFR (Non-Af Amer) Random Glucose Calcium Iron 21 L TIBC 227 L % Saturation 9 L Total Bilirubin AST ALT Alkaline Phosphatase Ammonia Total Protein Albumin Globulin Albumin/Globulin Ratio Procalcitonin RPR Hepatitis A IgM Ab Hep Bs Antigen Hep B Core IgM Ab Hepatitis C Antibody Attending/Attestation - Attestation I have personally seen and examined this patient.: Yes I have fully participated in the care of the patient.: Yes I have reviewed all pertinent clinical information: Yes Notes (Text): 02/17/17 13:26 Patient seen at bedside in telemetry. Somnolent. Not able to give history. This is a 51 year old female with history of COPD and alcohol abuse presenting with shortness of breath and leg swelling. Since admission, treatment for severe sepsis 2/2 hypoxic/hypercarbic respiratory failure 2/2 multifocal community acquired pneumonia and COPD exacerbation. GI consultation for hepatic encephalopathy ? On biochemical evidence she has hypo albuminemia and elevated transminases which are down trending now. She will need triple phase CT scan to evaluate liver parenchyma and spleen. She likely has multi factorial etiology for AMS and lethargy. She is unable to follow instructions and hence difficult to determine whether she has HE. 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 She was oriented to self and place today. MRI head is unremarkable. Will hold sedation and narcotics for now. Will follow closely and continue lactulose to 2 BM/day
[2017-02-17 09:22] LABS: IRON 21 ug/dL (37-170)
--- NOTE | 2017-02-17 09:25 | RAD ---
PROCEDURE: CHEST RADIOGRAPH, 1 VIEW HISTORY: pneumonia COMPARISON: 02/07/2017 single-view chest. 02/13/2017 CT angiogram for pulmonary embolism. FINDINGS: LUNGS: Clear lungs, resolution of infiltrates identified previously. PLEURA: No pneumothorax or pleural fluid seen. CARDIOVASCULAR: Cardiomegaly. No evidence of acute, significant cardiovascular disease. OSSEOUS STRUCTURES: No significant abnormalities. Old healed rib fractures identified on the right is likely posttraumatic VISUALIZED UPPER ABDOMEN: Normal. OTHER FINDINGS: None. IMPRESSION: No active disease.
[2017-02-17] MEDS: Fluticasone-Salmeterol 250-50mcg Diskus IH SCH ×2 (09:30→21:28)
[2017-02-17] MEDS: Multivitamin With Minerals Tab PO SCH (09:31)
[2017-02-17] MEDS: Lidocaine 5% Patch TD SCH (09:32)
[2017-02-17] MEDS: Azithromycin 500 MG in Sodium Chloride 0.9% 250 ML IVPB SCH (10:00)
[2017-02-17] MEDS: Dextrose 5%/0.45% NS 1,000 ML IV SCH (10:13)
[2017-02-17] MEDS ORDERED: Iohexol 300 100 ML IJ ONE (14:02)
--- NOTE | 2017-02-17 16:17 | CT ---
PROCEDURE: CT Abdomen with and without intravenous contrast HISTORY: elevated LFTs, concern cirrhosis, r/o HCC COMPARISON: None. TECHNIQUE: Axial images of the abdomen from lung bases to iliac crest with and without intravenous contrast enhancement. Coronal and sagittal reformats generated. Oral contrast also administered. Intravenous contrast Dose: 95 cc Omnipaque 300 Radiation dose: Total exam DLP = 2710.84 mGy-cm. This CT exam was performed using one or more of the following dose reduction techniques: Automated exposure control, adjustment of the mA and/or kV according to patient size, and/or use of iterative reconstruction technique. FINDINGS: LOWER THORAX: Peripheral infiltrate lateral segment left lower lobe with air bronchograms likely pneumonia. LIVER: Cirrhotic liver, hepatomegaly and hepatic steatosis. No focal hepatic masses. Patent portal venous system including intrahepatic branches, the main portal vein, splenic vein. The splenic and main portal veins are dilated without evidence of thrombosis suggestive of portal hypertension. GALLBLADDER AND BILE DUCTS: I laid gallbladder without apparent calculus disease. PANCREAS: Unremarkable. No gross lesion or ductal dilatation. SPLEEN: Unremarkable. ADRENALS: Unremarkable. No mass. KIDNEYS AND URETERS: Unremarkable. No hydronephrosis. No solid mass. VASCULATURE: Unremarkable. No aortic aneurysm. BOWEL: Unremarkable. No obstruction. No gross mural thickening. APPENDIX: Normal appendix. PERITONEUM: Trace intra-abdominal and pelvic ascites. LYMPH NODES: Unremarkable. No enlarged lymph nodes. BLADDER: Focally catheter identified in the decompressed urinary bladder. REPRODUCTIVE: Unremarkable. BONES: No acute fracture. OTHER FINDINGS: Mild anasarca. IMPRESSION: Cirrhotic appearing liver, splenomegaly. Findings suggest portal hypertension. No evidence of portal vein thrombosis. No hepatic masses identified. Additional benign and/or incidental findings described above.
[2017-02-17 16:40] LABS: IMMUNOGLOBULIN A 681.5 mg/dL (70.0-400.0); IMMUNOGLOBULIN G 1384.9 mg/dL (700.0-1600.0); IMMUNOGLOBULIN M 153.5 mg/dL (40.0-230.0)
[2017-02-17] MEDS ORDERED: Potassium Chloride 20 mEq/15 ml LIQ UD PO ONE (18:51)
--- NOTE | 2017-02-17 18:59 | CP.PCM.PN ---
Subjective - Date & Time of Evaluation Date of Evaluation: 02/17/17 Time of Evaluation: 11:00 - Subjective Subjective: Patient seen and examined bedside. Somnolent , responds to verbal command, name calling ,restless. With 4 BM overnight after lactulose given BP 100/54 HR 99 ABG 30/75/22/7.4 WBC 12 Hgb 8.3 plt 95K K 3.1 Complains of pain will generalized maculopapular rash in all her body poor po intake Objective - Vital Signs/Intake and Output Vital Signs (last 24 hours): Temp Pulse Resp BP Pulse Ox 99.4 F 99 H 19 146/76 98 02/17/17 15:56 02/17/17 15:56 02/17/17 15:56 02/17/17 15:56 02/17/17 15:56 Intake and Output: 02/17/17 02/17/17 06:59 18:59 Intake Total 200 1260 Output Total 700 450 Balance -500 810 - Medications Medications: Current Medications Acetaminophen (Tylenol 325mg Tab) 650 mg PO Q6H PRN PRN Reason: Pain, Mild (1-3) Acetaminophen (Tylenol 325mg Tab) 650 mg PO Q6H PRN PRN Reason: Fever >100.4 F Albuterol/Ipratropium (Duoneb 3 Mg/0.5 Mg (3 Ml) Ud) 3 ml INH RQ4 [facility] Last Admin: 02/17/17 15:51 Dose: 3 ml Albuterol/Ipratropium (Duoneb 3 Mg/0.5 Mg (3 Ml) Ud) 3 ml INH RQ4 PRN PRN Reason: Shortness of Breath Last Admin: 02/13/17 10:05 Dose: 3 ml Bisacodyl (Dulcolax) 10 mg TN DAILY PRN PRN Reason: Constipation Last Admin: 02/12/17 20:13 Dose: 10 mg Docusate Sodium (Colace) 100 mg PO BID PRN PRN Reason: Constipation Last Admin: 02/08/17 20:35 Dose: 100 mg Folic Acid (Folic Acid) 1 mg PO DAILY [facility] Last Admin: 02/17/17 09:31 Dose: 1 mg Azithromycin 500 mg/ Sodium (Chloride) 250 mls @ 250 mls/hr IVPB DAILY [facility] PRN Reason: Protocol Last Admin: 02/17/17 10:00 Dose: 250 mls/hr Vancomycin HCl 1 gm/ Sodium (Chloride) 250 mls @ 166.667 mls/hr IVPB DAILY [facility] PRN Reason: Protocol Last Admin: 02/17/17 09:31 Dose: 166.667 mls/hr Piperacillin Sod/Tazobactam (Sod 3.375 gm/ Sodium Chloride) 100 mls @ 100 mls/ hr IVPB Q6 [facility] PRN Reason: Protocol Last Admin: 02/17/17 16:37 Dose: 100 mls/hr Dextrose/Sodium Chloride (Dextrose 5%/0.45% Ns 1000 Ml) 1,000 mls @ 60 mls/hr IV .[id number] [facility] Stop: 02/18/17 09:51 Last Admin: 02/17/17 10:13 Dose: 60 mls/hr Lactulose (Enulose) 20 gm PO BID [facility] Last Admin: 02/17/17 16:58 Dose: 20 gm Lidocaine (Lidoderm) 1 ea TD DAILY [facility] Last Admin: 02/17/17 09:32 Dose: 1 ea Magnesium Hydroxide (Milk Of Magnesia) 30 ml PO DAILY PRN PRN Reason: Constipation Last Admin: 02/12/17 20:13 Dose: 30 ml Multivitamins/Minerals (Therapeutic-M Tab) 1 tab PO DAILY [facility] Last Admin: 02/17/17 09:31 Dose: 1 tab Nicotine (Nicoderm Cq) 1 patch TD DAILY [facility] Last Admin: 02/17/17 09:32 Dose: 1 patch Nystatin (Mycostatin Cream) 1 applic TOP TID [facility] Last Admin: 02/17/17 16:59 Dose: 1 applic Nystatin (Nystop Topical Powder) 1 applic TOP TID [facility] Last Admin: 02/17/17 16:58 Dose: 1 applic Ondansetron HCl (Zofran Inj) 4 mg IVP Q6H PRN PRN Reason: Nausea/Vomiting Potassium Chloride (Potassium Chloride Oral Soln) 40 meq PO ONCE ONE Stop: 02/17/17 18:52 Fluticasone/Salmeterol (Advair Diskus 250/50) 1 puff IH Q12 [facility] Last Admin: 02/17/17 09:30 Dose: 1 puff Sodium Chloride ([place] Nasal [place]) 2 sprays GINGER Q4 [facility] Last Admin: 02/17/17 17:00 Dose: 1 spray Thiamine HCl (Vitamin B1 Tab) 100 mg PO DAILY [facility] Last Admin: 02/17/17 09:31 Dose: 100 mg - Labs Labs: 02/17/17 05:00 02/17/17 05:00 PT 20.4 Seconds (9.8-13.1) H 02/17/17 06:08 INR 1.8 (0.9-1.2) H 02/17/17 06:08 APTT 19.7 Seconds (25.6-37.1) L 02/09/17 11:55 - Constitutional Appears: Confused, Chronically Ill, Other (obese, lethargic , restless) - Head Exam Head Exam: ATRAUMATIC, NORMOCEPHALIC - Eye Exam Eye Exam: PERRL Pupil Exam: NORMAL ACCOMODATION - ENT Exam ENT Exam: Mucous Membranes Dry, Normal Exam - Neck Exam Neck Exam: Normal Inspection - Respiratory Exam Respiratory Exam: Prolonged Expiratory Phase, Rhonchi. absent: Accessory Muscle Use, Wheezes, Respiratory Distress - Cardiovascular Exam Cardiovascular Exam: REGULAR RHYTHM, RRR, +S1, +S2. absent: JVD - GI/Abdominal Exam GI & Abdominal Exam: Soft, Normal Bowel Sounds. absent: Distended, Guarding, Tenderness, Rebound - Rectal Exam Rectal Exam: Deferred - Extremities Exam Extremities Exam: Normal Inspection, Pedal Edema (2+) - Neurological Exam Additional comments: lethargic responds to name calling , opens eyes , oriented to place person restless - Psychiatric Exam Psychiatric exam: Agitated, Anxious, Flat Affect - Skin Skin Exam: Dry, Pallor Additional comments: generalized maculopapular rash worse on the groin area, under the breast Assessment and Plan - Assessment and Plan (Free Text) Assessment: 51 y/o female with COPD , fatty liver, Chronic ETOH abuse ( daily 8 cups of 8 ounce vodka ) , smoker , chronic lower back pain brought to ER for evaluation by EMS for facial and lower extremity swelling , SOB and lower back pain. As per patient she has some baseline SOB with ambulation and has chronic lower back pain . Pt was having some lower back pain for which she took some Motrin and Advil PM. and when she woke up she noticed her face and eyes to be swollen and her lower extremities were swollen as well. She could not get out of bed and was having significant back pain . In the ED , was found to be in respiratory distress,with dyspnea RR 35 O2sat 94 %, slightly hypotensive BP 96/65 tachycardic HR 122. She was given 2 Duonebs in the field, 125 mg IV solumedrol in ER , started on IVF and placed on High Flow O2 ,20 LPM FIO2 60 % Her ABG showed PO2 70 PCO2 35 pH 7.38 . CXR showed bilateral infiltrates worse on the right WBC found to be elevated 16.8 Hgb 10 BUN/Cr 20/1.4 rigoberto 6.6 ASt / ALT 150/26 lactic acid 2.6 ETOH levels 73 Physical exam was significant for tremors , increased work of breathing , periorbital, facial and lower extremity edema, her breath smelled of alcohol. She was admitted in ICU for close monitoring and treatment, she improved and was transferred to telemetry but became very agitated , restless , confused , tachypneic and tachycardic and so was transferred back to ICU for close monitoring. She was placed on High Flow Oxygen and started on Precedex drip and later switched to librium and Ativan PRN. She became very lethargic so all sedation medications were stopped including pain medications. CT L-S spine showed DJD and some compression fractures that could be reason for her back pain. Anesthesiology,spine surgeon were consulted . Her confusion improved somewhat and was switched to NC maintaining her O2 sat and transferred to telemetry. MRI of thoracic and Lumbar spine: Compression fractures Patient still with fluctuation of her mental status , becoming lethargic , somnolent at times but able to maintain her airway. Attempted to get in touch with her PMD - DR Sidney Suarez - on vacation, will be back Feb 21 1. Severe Sepsis- resolving Most likely secondary to multifocal pneumonia patient was hypotensive,tachycardic,hypoxemic with WBC 16.8 and CXR showed bilateral infiltrates, lactate 2.6 on admission Sputum cx positive for yeast Received full course of diflucan vanco and Zosyn ( 14 days ) and antibiotics were discontinued Tmax 100 last 12 hours and WBC trended uup to [address] chest showed persistent dense bilateral lower lobe infiltrates. Restarted Vanco , Zosyn and Zithromax IV today . ID following Repeat CBC and follow fever curve 2.Acute hypoxemic and hypercarbic respiratory failure Most likely secondary to multi lobar Pneumonia and COPD exacerbation PE ruled out - neg CTA and V/Q scan was placed on High Flow Oxygen initially , and at present on 2 liters O2 via NC maintaining her airway and saturating 95-98 % discontinued Opiates , sedatives and anti Psychotics as these make pt very sedated Off PreCedex drip since 02/04 Continue Duonebs Tapered off steroids , on Advair INH Pulmonary and ID consulted Dr Mojica re consulted to re-evaluate pt Restart IV Vanco Zosyn and Zithromax since CT chest showed persistent consolidations ENT consulted and case discussed with Dr. Hernandez . Larynx appears normal , vocal cords with no mass ABG today 30//7.4 3. Multifocal Pneumonia ID and pulmonary consulted Received Vanco, Zosyn, Azithro and Diflucan for 2 weeks , so antibiotics were discontinued CT chest showed persistent bilateral lower lobe dense consolidations Resumed Iv antibiotics patient is a long time smoker so will need to follow up resolution of infiltrates to rule out any underlying malignancy 4. Facial and lower extremity edema unclear etiology of facial edema , resolved TSH : normal Given Solumedrol 125mg , Benadry and Pepcid LE venous doppler negative for DVT Echo showed normal LVF EF 65 -70 % given lasix 5. ETOH abuse / Delirium Tremens/alcoholic encephalopathy was started on Precedex drip in ICU , was agitated /restless and has been off drip since 02/04 tapered off Librium continue Thiamine, Folic acid Seizure precautions/ withdrawal precautions psych consulted- rec Risperdal or Haldol for agitation however pt gets very sedated on theses meds when given.Discontinued all narcotics and psych meds Ammonia level76 today. Started lactulose 20 gm PO BID . Will give 200 g TN stat . GI consulted MELD score 15 6. AMS ? sec to Encephalopathy pt still lethargic , somnolent despite tx of PNA,COPD, Alcoholism, now off all sedatives and opiates Ammonia levels elevated - Started lactulose B12 level normal TSH normal CT of head x 2 : neg MRI brain shoed mil generalized atrophy F/u EEG Neurology consulted - Dr Mora Gi consulted Start IVF due to poor po intake 7. SUNDAR improved no prior records and unknown baseline renal function improved 8. COPD exacerbation-- improved continue Nhanonebs pulmonary consulted counseled on smoking tapered off IV solumedrol 9. Alcohol Liver Dis Bill 6.6 AST 150 on admission. Bili trending down to 2.1, afebrile CT chest showed hepatomegaly , fatty infiltration , some ascitic fluid and umbilical vein recannulization significant for portal hypertension \ US showed: Hepatomegaly with steatosis.Trace perihepatic ascites.Nonspecific gallbladder wall thickening. Gallbladder wall thickening is a nonspecific finding which can be seen with ascites, hepatitis, cholecystitis,CHF or hypoproteinemic states. patient has no abdominal pain , no fever , no signs of cholecystitis Continue monitoring GI eval MELD score 15 10. Chronic Lower back pain likely sec to Compression Fractures Ct chest also showed mild chronic compression fracture in mid thoracic spine Multiple attempts made to have pt go for CT of [place] and T spine however pt could not tolerate and could not remain still for the procedure - finally went - CT of the spine showed Acute Thoracic and Lumbar spine compression fractures Neurosurgery consulted- no NSS intervention , rec PT, Pain mgt Pain management consulted and started on Morphine and lidoderm patch . D/c morphine since patient is very somnolent and lethargic MRI spine showed no acute fracture or significant disc protrusion With urinary retention- Gaffney in place draining well now off all opiates, sedatives 11.Anemia unclear etiology iron levels dropping. probably secondary to poor po intake Will start Venofer B12 levels normal cont Thiamine 12. Thrombocytopenia sec to alcohol, liver dis and meds HIT : negative d/c Lovenox plt 95 K 13.Urinary retention unclear etiology most likely secondary to immobility, pain medication Straight cath placed x 2 with 1000 ml Gaffney cath placed and draining well 14. Generalized maculopapular rash -- worsening unclear etiology possible candidiasis will start Diflucan IV Nystatin topical 15. DVT prophylaxis GI prophylaxis d/c lovenox due to thrombocytopenia Pepcid
[2017-02-17] MEDS: Potassium CL 10 MEQ/50 ML 50 ML IVPB SCH ×2 (22:34→23:34)
--- NOTE | 2017-02-17 23:46 | PN ---
DATE: 02/17/2017 NEUROLOGICAL PROBLEM: Metabolic encephalopathy. PHYSICAL EXAMINATION: VITAL SIGNS: Blood pressure 146/76, mean arterial pressure of 99, respiratory rate 19, temperature 99.4, pulse rate 99, regular. GENERAL: Patient is examined in the presence of her family members. Patient is lethargic. EXTREMITIES: Patient moves both of her upper extremities spontaneously. Does not complain of pain from her back. She moves her legs to some extent, moving the toes. Rest of the examination is unchanged. LABORATORY DATA: Her recent blood workup; WBC 12.3, hemoglobin 12.7, platelet 95. Sodium 146, potassium 3.1, chloride 116, bicarbonate 20, BUN 11, creatinine 0.8, GFR more than 60, random glucose 122, hemoglobin A1c is 4.6, iron 21, TIBC 9, sed rate 105, PT 20.4, INR 1.8, prolactin 67.4, CRP more than 15. Hepatitis negative. RECOMMENDATIONS: Patient needs vasculitis workup considering her high ESR and CRP increased. Other workup, MRI of the brain, no acute pathology noted. EEG does not show any focal slowing or paroxysmal activities noted; however, patient does show bilaterally slow activities consistent with cerebral dysfunction secondary to current encephalopathy. Continue the supportive care. Correct the electrolytes. Appropriate antibiotic for her infectious source. Patient should be on DVT prophylaxis. Patient should get out of the bed. Mil Mora MD
[2017-02-18] MEDS: Potassium CL 10 MEQ/50 ML 50 ML IVPB SCH ×2 (00:35→01:45)
[2017-02-18] MEDS: Nasal Spray(Ocean spray) NAS SCH ×5 (01:16→21:46)
[2017-02-18 02:47] LABS: RBC URINE 4 /hpf (0-3); URINE BACTERIA RARE (<OCC); URINE BILIRUBIN NEGATIVE (NEGATIVE); URINE BLOOD SMALL (NEGATIVE); URINE COLOR YELLOW (YELLOW); URINE GLUCOSE (UA) NEG (Normal); URINE KETONE NEGATIVE (NEGATIVE); URINE LEUKOCYTE ESTERASE NEG Leu/uL (Negative); URINE PROTEIN NEGATIVE (NEGATIVE); WBC URINE 4 /hpf (0-5)
[2017-02-18] MEDS: Albuterol-Ipratrop 3 mg / 0.5 (3 ml) UD INH SCH ×5 (04:40→19:03)
[2017-02-18] MEDS: Piperacillin/Tazobact 3.375 GM in Sodium Chloride 0.9% 100 ML IVPB SCH ×4 (04:46→21:46)
[2017-02-18] MEDS: Dextrose 5%/0.45% NS 1,000 ML IV SCH (04:47)
[2017-02-18 05:30] LABS: HEMATOCRIT 25.1 % (34.0-47.0); MEAN CELL VOLUME 107.6 fl (81.0-99.0); MEAN CORPUSCULAR HEMOGLOBIN 35.3 pg (27.0-31.0); MEAN CORPUSCULAR HGB CONC 32.8 g/dL (33.0-37.0); RED CELL DISTRIBUTION WIDTH 17.5 % (11.5-14.5); WHITE BLOOD COUNT 6.7 K/uL (4.8-10.8)
[2017-02-18 06:26] LABS: BLOOD UREA NITROGEN 12 mg/dl (7-17); CALCIUM 8.4 mg/dL (8.4-10.2); CARBON DIOXIDE 19 mmol/L (22-30); CHLORIDE 121 mmol/L (98-107); GFR AFRICAN-AMERICAN > 60; GLUCOSE,RANDOM 110 mg/dL (65-105); POTASSIUM 3.2 MMOL/L (3.6-5.0); SODIUM 149 mmol/l (132-148)
--- NOTE | 2017-02-18 07:47 | CP.PCM.PN ---
<Yelena Escobedo - Last Filed: 02/18/17 09:20> Subjective - Date & Time of Evaluation Date of Evaluation: 02/18/17 Time of Evaluation: 07:44 - Subjective Subjective: Gastroenterology Fellow/PGY5 Progress Note Patient asleep and easier to arouse compared to day prior. Patient denies abdominal pain. Oriented to self and place. Nursing staff notes three bowel movements overnight with total of seven in last 24 hours. 12-point review of systems limited due to hepatic encephalopathy. Objective - Vital Signs/Intake and Output Vital Signs (last 24 hours): Temp Pulse Resp BP Pulse Ox 98.2 F 89 20 112/64 95 02/18/17 05:00 02/18/17 05:00 02/18/17 05:00 02/18/17 05:00 02/18/17 05:00 Intake and Output: 02/18/17 02/18/17 06:59 18:59 Intake Total 1020 Output Total 400 Balance 620 - Medications Medications: Current Medications Acetaminophen (Tylenol 325mg Tab) 650 mg PO Q6H PRN PRN Reason: Pain, Mild (1-3) Acetaminophen (Tylenol 325mg Tab) 650 mg PO Q6H PRN PRN Reason: Fever >100.4 F Albuterol/Ipratropium (Duoneb 3 Mg/0.5 Mg (3 Ml) Ud) 3 ml INH RQ4 [facility] Last Admin: 02/18/17 04:40 Dose: 3 ml Albuterol/Ipratropium (Duoneb 3 Mg/0.5 Mg (3 Ml) Ud) 3 ml INH RQ4 PRN PRN Reason: Shortness of Breath Last Admin: 02/13/17 10:05 Dose: 3 ml Bisacodyl (Dulcolax) 10 mg RI DAILY PRN PRN Reason: Constipation Last Admin: 02/12/17 20:13 Dose: 10 mg Docusate Sodium (Colace) 100 mg PO BID PRN PRN Reason: Constipation Last Admin: 02/08/17 20:35 Dose: 100 mg Folic Acid (Folic Acid) 1 mg PO DAILY [facility] Last Admin: 02/17/17 09:31 Dose: 1 mg Azithromycin 500 mg/ Sodium (Chloride) 250 mls @ 250 mls/hr IVPB DAILY [facility] PRN Reason: Protocol Last Admin: 02/17/17 10:00 Dose: 250 mls/hr Vancomycin HCl 1 gm/ Sodium (Chloride) 250 mls @ 166.667 mls/hr IVPB DAILY [facility] PRN Reason: Protocol Last Admin: 02/17/17 09:31 Dose: 166.667 mls/hr Piperacillin Sod/Tazobactam (Sod 3.375 gm/ Sodium Chloride) 100 mls @ 100 mls/ hr IVPB Q6 [facility] PRN Reason: Protocol Last Admin: 02/18/17 04:46 Dose: 100 mls/hr Dextrose/Sodium Chloride (Dextrose 5%/0.45% Ns 1000 Ml) 1,000 mls @ 60 mls/hr IV .[id number] [facility] Stop: 02/18/17 09:51 Last Admin: 02/18/17 04:47 Dose: 60 mls/hr Fluconazole (Diflucan Iv 100 Mg/50 Ml Ns) 50 mls @ 50 mls/hr IVPB DAILY [facility] PRN Reason: Protocol Iron Sucrose 100 mg/ Sodium (Chloride) 105 mls @ 105 mls/hr IVPB DAILY [facility] Lactulose (Enulose) 20 gm PO BID [facility] Last Admin: 02/17/17 16:58 Dose: 20 gm Lidocaine (Lidoderm) 1 ea TD DAILY [facility] Last Admin: 02/17/17 09:32 Dose: 1 ea Magnesium Hydroxide (Milk Of Magnesia) 30 ml PO DAILY PRN PRN Reason: Constipation Last Admin: 02/12/17 20:13 Dose: 30 ml Multivitamins/Minerals (Therapeutic-M Tab) 1 tab PO DAILY [facility] Last Admin: 02/17/17 09:31 Dose: 1 tab Nicotine (Nicoderm Cq) 1 patch TD DAILY [facility] Last Admin: 02/17/17 09:32 Dose: 1 patch Nystatin (Mycostatin Cream) 1 applic TOP TID [facility] Last Admin: 02/17/17 16:59 Dose: 1 applic Nystatin (Nystop Topical Powder) 1 applic TOP QID [facility] Last Admin: 02/17/17 22:29 Dose: 1 applic Ondansetron HCl (Zofran Inj) 4 mg IVP Q6H PRN PRN Reason: Nausea/Vomiting Fluticasone/Salmeterol (Advair Diskus 250/50) 1 puff IH Q12 [facility] Last Admin: 02/17/17 21:28 Dose: 1 puff Sodium Chloride ([place] Nasal [place]) 2 sprays GINGER Q4 [facility] Last Admin: 02/18/17 04:44 Dose: 1 spray Thiamine HCl (Vitamin B1 Tab) 100 mg PO DAILY [facility] Last Admin: 02/17/17 09:31 Dose: 100 mg - Labs Labs: 02/18/17 04:55 02/18/17 04:55 PT 20.4 Seconds (9.8-13.1) H 02/17/17 06:08 INR 1.8 (0.9-1.2) H 02/17/17 06:08 APTT 19.7 Seconds (25.6-37.1) L 02/09/17 11:55 - Constitutional Appears: Non-toxic, No Acute Distress, Chronically Ill - Head Exam Head Exam: ATRAUMATIC, NORMOCEPHALIC - Eye Exam Eye Exam: EOMI, PERRL Pupil Exam: absent: Miosis, Mydriatic - ENT Exam ENT Exam: Mucous Membranes Moist, Normal Oropharynx Assessment and Plan - Assessment and Plan (Free Text) Assessment: 51 year old female with history of COPD and Alcohol abuse presenting with shortness of breath and leg swelling. Since admission, treatment for severe sepsis 2/2 hypoxic/hypercarbic respiratory failure 2/2 multifocal community acquired pneumonia complicated by COPD exacerbation. GI consultation for decompensated alcoholic cirrhosis 2/2 hepatic encephalopathy. Plan: >MELD on admission , 02/17- >CT Liver protocol- confirms cirrhosis, no hepatic lesions, trace ascites >blood culture negative to date >continue Lactulose 20g BID, titrate 2-3 BMs/day >pending autoimmune workup >daily MELD labs >strict I&Os >will follow clinical course <Andrés Gonzales MD - Last Filed: 02/18/17 16:33> Objective - Vital Signs/Intake and Output Vital Signs (last 24 hours): Temp Pulse Resp BP Pulse Ox 98.2 F 91 H 17 108/72 94 L 02/18/17 15:43 02/18/17 15:43 02/18/17 15:43 02/18/17 15:43 02/18/17 15:43 Intake and Output: 02/18/17 02/18/17 06:59 18:59 Intake Total 1020 Output Total 400 Balance 620 - Medications Medications: Current Medications Acetaminophen (Tylenol 325mg Tab) 650 mg PO Q6H PRN PRN Reason: Pain, Mild (1-3) Acetaminophen (Tylenol 325mg Tab) 650 mg PO Q6H PRN PRN Reason: Fever >100.4 F Albuterol/Ipratropium (Duoneb 3 Mg/0.5 Mg (3 Ml) Ud) 3 ml INH RQ4 [facility] Last Admin: 02/18/17 15:26 Dose: 3 ml Albuterol/Ipratropium (Duoneb 3 Mg/0.5 Mg (3 Ml) Ud) 3 ml INH RQ4 PRN PRN Reason: Shortness of Breath Last Admin: 02/13/17 10:05 Dose: 3 ml Bisacodyl (Dulcolax) 10 mg RI DAILY PRN PRN Reason: Constipation Last Admin: 02/12/17 20:13 Dose: 10 mg Docusate Sodium (Colace) 100 mg PO BID PRN PRN Reason: Constipation Last Admin: 02/08/17 20:35 Dose: 100 mg Folic Acid (Folic Acid) 1 mg PO DAILY [facility] Last Admin: 02/18/17 09:56 Dose: Not Given Azithromycin 500 mg/ Sodium (Chloride) 250 mls @ 250 mls/hr IVPB DAILY [facility] PRN Reason: Protocol Last Admin: 02/17/17 10:00 Dose: 250 mls/hr Vancomycin HCl 1 gm/ Sodium (Chloride) 250 mls @ 166.667 mls/hr IVPB DAILY [facility] PRN Reason: Protocol Last Admin: 02/18/17 09:55 Dose: 166.667 mls/hr Piperacillin Sod/Tazobactam (Sod 3.375 gm/ Sodium Chloride) 100 mls @ 100 mls/ hr IVPB Q6 [facility] PRN Reason: Protocol Last Admin: 02/18/17 09:56 Dose: 100 mls/hr Fluconazole (Diflucan Iv 100 Mg/50 Ml Ns) 50 mls @ 50 mls/hr IVPB DAILY [facility] PRN Reason: Protocol Last Admin: 02/18/17 09:55 Dose: 50 mls/hr Iron Sucrose 100 mg/ Sodium (Chloride) 105 mls @ 105 mls/hr IVPB DAILY [facility] Last Admin: 02/18/17 09:55 Dose: 105 mls/hr Lactulose (Enulose) 20 gm PO BID [facility] Lidocaine (Lidoderm) 1 ea TD DAILY [facility] Last Admin: 02/18/17 09:56 Dose: Not Given Magnesium Hydroxide (Milk Of Magnesia) 30 ml PO DAILY PRN PRN Reason: Constipation Last Admin: 02/12/17 20:13 Dose: 30 ml Multivitamins/Minerals (Therapeutic-M Tab) 1 tab PO DAILY [facility] Last Admin: 02/18/17 09:56 Dose: Not Given Nicotine (Nicoderm Cq) 1 patch TD DAILY [facility] Last Admin: 02/18/17 09:56 Dose: Not Given Nystatin (Mycostatin Cream) 1 applic TOP TID [facility] Last Admin: 02/18/17 12:06 Dose: 1 applic Nystatin (Nystop Topical Powder) 1 applic TOP QID [facility] Last Admin: 02/18/17 12:06 Dose: 1 applic Ondansetron HCl (Zofran Inj) 4 mg IVP Q6H PRN PRN Reason: Nausea/Vomiting Fluticasone/Salmeterol (Advair Diskus 250/50) 1 puff IH Q12 [facility] Last Admin: 02/18/17 09:57 Dose: Not Given Sodium Chloride ([place] Nasal [place]) 2 sprays GINGER Q4 [facility] Last Admin: 02/18/17 09:56 Dose: Not Given Thiamine HCl (Vitamin B1 Tab) 100 mg PO DAILY [facility] Last Admin: 02/18/17 09:56 Dose: Not Given - Labs Labs: 02/18/17 04:55 02/18/17 04:55 PT 21.9 Seconds (9.8-13.1) H 02/18/17 09:00 INR 2.0 (0.9-1.2) H 02/18/17 09:00 APTT 19.7 Seconds (25.6-37.1) L 02/09/17 11:55 Attending/Attestation - Attestation I have personally seen and examined this patient.: Yes I have fully participated in the care of the patient.: Yes I have reviewed all pertinent clinical information, including history, physical exam and plan: Yes Notes (Text): 02/18/17 16:31 Patient seen at bedside in telemetry. Somnolent. Not able to give history. This is a 51 year old female with history of COPD and alcohol abuse presenting with shortness of breath and leg swelling. Since admission, treatment for severe sepsis 2/2 hypoxic/hypercarbic respiratory failure 2/2 multifocal community acquired pneumonia and COPD exacerbation. GI consultation for hepatic encephalopathy. On biochemical evidence she has hypo albuminemia and elevated transminases which are down trending now. Triple phase CT scan done that shows cirrhosis and no hepatic lesions. She likely has multi factorial etiology for AMS and lethargy. 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 She was oriented to self and place today. MRI head is unremarkable. Will hold sedation and narcotics for now. Will follow closely and continue lactulose to 2 BM/day
[2017-02-18 08:14] LABS: ALB/GLOB RATIO 0.7 (1.0-2.1); BILIRUBIN,TOTAL 2.6 mg/dl (0.2-1.3); TOTAL PROTEIN 6.7 G/DL (6.3-8.2)
--- NOTE | 2017-02-18 09:29 | EEG ---
DATE: This is a 16-channel electroencephalogram of awake and drowsy adult. During the study, photic stimulation was performed. Hyperventilation was not performed. The resting electroencephalogram consists of diffuse 20 to 30 microvolt theta mixed with delta activities seen at parietal and occipital leads. Some movement artifact contaminated the background rhythm. The photic stimulation did not evoke driving response noted at 2 to 20 Hz. There was an episode of polyspike and wave activities, which lasted for about 3 to 4 seconds, which may be artifactual. IMPRESSION: This is an abnormal electroencephalogram because of persistent slow activities consistent with bilateral cerebral dysfunction. This is probably secondary to metabolic vascular degenerative process. Please correlate the finding with the neurological and radiological studies. Mil Mora MD
[2017-02-18] MEDS: Fluconazole IV 100mg/50 ml NS 50 ML IVPB SCH (09:55)
[2017-02-18] MEDS: Multivitamin With Minerals Tab PO SCH (09:56)
[2017-02-18] MEDS: Lidocaine 5% Patch TD SCH (09:56)
[2017-02-18] MEDS: Fluticasone-Salmeterol 250-50mcg Diskus IH SCH ×2 (09:57→21:47)
[2017-02-18] MEDS: Azithromycin 500 MG in Sodium Chloride 0.9% 250 ML IVPB SCH (10:35)
--- NOTE | 2017-02-18 10:53 | CP.PCM.PN ---
Subjective - Date & Time of Evaluation Date of Evaluation: 02/18/17 Time of Evaluation: 10:53 - Subjective Subjective: pt somnolent 2/2 hepatic encephalopathy HD stable, titrating lactulose to 2-3 BM no acute events overnight ff ID and GI recommendations Objective - Vital Signs/Intake and Output Vital Signs (last 24 hours): Temp Pulse Resp BP Pulse Ox 97.3 F L 83 20 108/51 L 97 02/18/17 08:00 02/18/17 08:00 02/18/17 08:00 02/18/17 08:00 02/18/17 08:00 Intake and Output: 02/18/17 02/18/17 06:59 18:59 Intake Total 1020 Output Total 400 Balance 620 - Medications Medications: Current Medications Acetaminophen (Tylenol 325mg Tab) 650 mg PO Q6H PRN PRN Reason: Pain, Mild (1-3) Acetaminophen (Tylenol 325mg Tab) 650 mg PO Q6H PRN PRN Reason: Fever >100.4 F Albuterol/Ipratropium (Duoneb 3 Mg/0.5 Mg (3 Ml) Ud) 3 ml INH RQ4 [facility] Last Admin: 02/18/17 07:45 Dose: 3 ml Albuterol/Ipratropium (Duoneb 3 Mg/0.5 Mg (3 Ml) Ud) 3 ml INH RQ4 PRN PRN Reason: Shortness of Breath Last Admin: 02/13/17 10:05 Dose: 3 ml Bisacodyl (Dulcolax) 10 mg NC DAILY PRN PRN Reason: Constipation Last Admin: 02/12/17 20:13 Dose: 10 mg Docusate Sodium (Colace) 100 mg PO BID PRN PRN Reason: Constipation Last Admin: 02/08/17 20:35 Dose: 100 mg Folic Acid (Folic Acid) 1 mg PO DAILY [facility] Last Admin: 02/18/17 09:56 Dose: Not Given Azithromycin 500 mg/ Sodium (Chloride) 250 mls @ 250 mls/hr IVPB DAILY [facility] PRN Reason: Protocol Last Admin: 02/17/17 10:00 Dose: 250 mls/hr Vancomycin HCl 1 gm/ Sodium (Chloride) 250 mls @ 166.667 mls/hr IVPB DAILY [facility] PRN Reason: Protocol Last Admin: 12/15/17 09:55 Dose: 166.667 mls/hr Piperacillin Sod/Tazobactam (Sod 3.375 gm/ Sodium Chloride) 100 mls @ 100 mls/ hr IVPB Q6 [facility] PRN Reason: Protocol Last Admin: 02/18/17 09:56 Dose: 100 mls/hr Fluconazole (Diflucan Iv 100 Mg/50 Ml Ns) 50 mls @ 50 mls/hr IVPB DAILY [facility] PRN Reason: Protocol Last Admin: 02/18/17 09:55 Dose: 50 mls/hr Iron Sucrose 100 mg/ Sodium (Chloride) 105 mls @ 105 mls/hr IVPB DAILY [facility] Last Admin: 02/18/17 09:55 Dose: 105 mls/hr Lactulose (Enulose) 20 gm PO BID [facility] Lidocaine (Lidoderm) 1 ea TD DAILY [facility] Last Admin: 02/18/17 09:56 Dose: Not Given Magnesium Hydroxide (Milk Of Magnesia) 30 ml PO DAILY PRN PRN Reason: Constipation Last Admin: 02/12/17 20:13 Dose: 30 ml Multivitamins/Minerals (Therapeutic-M Tab) 1 tab PO DAILY [facility] Last Admin: 02/18/17 09:56 Dose: Not Given Nicotine (Nicoderm Cq) 1 patch TD DAILY [facility] Last Admin: 02/18/17 09:56 Dose: Not Given Nystatin (Mycostatin Cream) 1 applic TOP TID [facility] Last Admin: 02/18/17 09:56 Dose: Not Given Nystatin (Nystop Topical Powder) 1 applic TOP QID [facility] Last Admin: 02/18/17 09:56 Dose: Not Given Ondansetron HCl (Zofran Inj) 4 mg IVP Q6H PRN PRN Reason: Nausea/Vomiting Fluticasone/Salmeterol (Advair Diskus 250/50) 1 puff IH Q12 [facility] Last Admin: 02/18/17 09:57 Dose: Not Given Sodium Chloride ([place] Nasal [place]) 2 sprays GINGER Q4 [facility] Last Admin: 02/18/17 09:56 Dose: Not Given Thiamine HCl (Vitamin B1 Tab) 100 mg PO DAILY [facility] Last Admin: 02/18/17 09:56 Dose: Not Given - Labs Labs: 02/18/17 04:55 02/18/17 04:55 PT 21.9 Seconds (9.8-13.1) H 02/18/17 09:00 INR 2.0 (0.9-1.2) H 02/18/17 09:00 APTT 19.7 Seconds (25.6-37.1) L 02/09/17 11:55 - Constitutional Appears: Non-toxic, No Acute Distress - Head Exam Head Exam: ATRAUMATIC, NORMOCEPHALIC - Eye Exam Eye Exam: EOMI, Normal appearance - ENT Exam ENT Exam: Normal Oropharynx - Neck Exam Neck Exam: Normal Inspection. absent: Lymphadenopathy - Respiratory Exam Respiratory Exam: Clear to Ausculation Bilateral, NORMAL BREATHING PATTERN - Cardiovascular Exam Cardiovascular Exam: RRR, +S1, +S2 - GI/Abdominal Exam GI & Abdominal Exam: Soft, Normal Bowel Sounds - Extremities Exam Extremities Exam: Normal Capillary Refill, Normal Inspection - Back Exam Back Exam: absent: CVA tenderness (L), CVA tenderness (R) - Neurological Exam Neurological Exam: Altered, Reflexes Normal - Psychiatric Exam Psychiatric exam: absent: Normal Affect (unable to assess 2/2 somnolence) - Skin Skin Exam: Dry, Warm Assessment and Plan - Assessment and Plan (Free Text) Plan: 51 y/o female with COPD , fatty liver, Chronic ETOH abuse ( daily 8 cups of 8 ounce vodka ) , smoker , chronic lower back pain brought to ER for evaluation by EMS for facial and lower extremity swelling , SOB and lower back pain. As per patient she has some baseline SOB with ambulation and has chronic lower back pain . Pt was having some lower back pain for which she took some Motrin and Advil PM. and when she woke up she noticed her face and eyes to be swollen and her lower extremities were swollen as well. She could not get out of bed and was having significant back pain . In the ED , was found to be in respiratory distress,with dyspnea RR 35 O2sat 94 %, slightly hypotensive BP 96/65 tachycardic HR 122. She was given 2 Duonebs in the field, 125 mg IV solumedrol in ER , started on IVF and placed on High Flow O2 ,20 LPM FIO2 60 % Her ABG showed PO2 70 PCO2 35 pH 7.38 . CXR showed bilateral infiltrates worse on the right WBC found to be elevated 16.8 Hgb 10 BUN/Cr 20/1.4 rigoberto 6.6 ASt / ALT 150/26 lactic acid 2.6 ETOH levels 73 Physical exam was significant for tremors , increased work of breathing , periorbital, facial and lower extremity edema, her breath smelled of alcohol. She was admitted in ICU for close monitoring and treatment, she improved and was transferred to telemetry but became very agitated , restless , confused , tachypneic and tachycardic and so was transferred back to ICU for close monitoring. She was placed on High Flow Oxygen and started on Precedex drip and later switched to librium and Ativan PRN. She became very lethargic so all sedation medications were stopped including pain medications. CT L-S spine showed DJD and some compression fractures that could be reason for her back pain. Anesthesiology,spine surgeon were consulted . Her confusion improved somewhat and was switched to NC maintaining her O2 sat and transferred to telemetry. MRI of thoracic and Lumbar spine: Compression fractures Patient is lethargic and somnolent today but able to maintain her airway. Attempted to get in touch with her PMD - DR Sidney Suarez - on vacation, will be back Feb 21 1. Severe Sepsis- resolving Most likely secondary to multifocal pneumonia patient was hypotensive,tachycardic,hypoxemic with WBC 16.8 and CXR showed bilateral infiltrates, lactate 2.6 on admission Sputum cx positive for yeast Received full course of diflucan vanco and Zosyn ( 14 days ) and antibiotics were discontinued Tmax 100 last 12 hours and WBC trended uup to [address] chest showed persistent dense bilateral lower lobe infiltrates. Restarted Vanco , Zosyn and Zithromax IV today . ID following Repeat CBC and follow fever curve 2.Acute hypoxemic and hypercarbic respiratory failure Most likely secondary to multi lobar Pneumonia and COPD exacerbation PE ruled out - neg CTA and V/Q scan was placed on High Flow Oxygen initially , and at present on 2 liters O2 via NC maintaining her airway and saturating 95-98 % discontinued Opiates , sedatives and anti Psychotics as these make pt very sedated Off PreCedex drip since 02/04 Continue Duonebs Tapered off steroids , on Advair INH Pulmonary and ID consulted Dr Mojica re consulted to re-evaluate pt Restart IV Vanco Zosyn and Zithromax since CT chest showed persistent consolidations ENT consulted and case discussed with Dr. Hernandez . Larynx appears normal , vocal cords with no mass ABG today /22/7.4 3. Multifocal Pneumonia ID and pulmonary consulted Received Vanco, Zosyn, Azithro and Diflucan for 2 weeks , so antibiotics were discontinued CT chest showed persistent bilateral lower lobe dense consolidations Resumed Iv antibiotics patient is a long time smoker so will need to follow up resolution of infiltrates to rule out any underlying malignancy 4. Facial and lower extremity edema unclear etiology of facial edema , resolved TSH : normal Given Solumedrol 125mg , Benadry and Pepcid LE venous doppler negative for DVT Echo showed normal LVF EF 65 -70 % given lasix 5. ETOH abuse / Delirium Tremens/alcoholic encephalopathy was started on Precedex drip in ICU , was agitated /restless and has been off drip since 02/04 tapered off Librium continue Thiamine, Folic acid Seizure precautions/ withdrawal precautions psych consulted- rec Risperdal or Haldol for agitation however pt gets very sedated on theses meds when given.Discontinued all narcotics and psych meds Ammonia level76 today. Started lactulose 20 gm PO BID . Will give 200 g NC stat . GI consulted MELD score 15 6. AMS ? sec to Encephalopathy pt still lethargic , somnolent despite tx of PNA,COPD, Alcoholism, now off all sedatives and opiates Ammonia levels elevated - Started lactulose B12 level normal TSH normal CT of head x 2 : neg MRI brain shoed mil generalized atrophy F/u EEG Neurology consulted - Dr Mora Gi consulted Start IVF due to poor po intake 7. SUNDAR improved no prior records and unknown baseline renal function improved 8. COPD exacerbation-- improved continue Genny pulmonary consulted counseled on smoking tapered off IV solumedrol 9. Alcohol Liver Dis Bill 6.6 AST 150 on admission. Bili trending down to 2.1, afebrile CT chest showed hepatomegaly , fatty infiltration , some ascitic fluid and umbilical vein recannulization significant for portal hypertension \ US showed: Hepatomegaly with steatosis.Trace perihepatic ascites.Nonspecific gallbladder wall thickening. Gallbladder wall thickening is a nonspecific finding which can be seen with ascites, hepatitis, cholecystitis,CHF or hypoproteinemic states. patient has no abdominal pain , no fever , no signs of cholecystitis Continue monitoring GI eval MELD score 15 10. Chronic Lower back pain likely sec to Compression Fractures Ct chest also showed mild chronic compression fracture in mid thoracic spine Multiple attempts made to have pt go for CT of [place] and T spine however pt could not tolerate and could not remain still for the procedure - finally went - CT of the spine showed Acute Thoracic and Lumbar spine compression fractures Neurosurgery consulted- no NSS intervention , rec PT, Pain mgt Pain management consulted and started on Morphine and lidoderm patch . D/c morphine since patient is very somnolent and lethargic MRI spine showed no acute fracture or significant disc protrusion With urinary retention- Gaffney in place draining well now off all opiates, sedatives 11.Anemia unclear etiology iron levels dropping. probably secondary to poor po intake Will start Venofer B12 levels normal cont Thiamine 12. Thrombocytopenia sec to alcohol, liver dis and meds HIT : negative d/c Lovenox plt 95 K 13.Urinary retention unclear etiology most likely secondary to immobility, pain medication Straight cath placed x 2 with 1000 ml Gaffney cath placed and draining well 14. Generalized maculopapular rash -- worsening unclear etiology possible candidiasis will start Diflucan IV Nystatin topical 15. DVT prophylaxis GI prophylaxis d/c lovenox due to thrombocytopenia Pepcid
--- NOTE | 2017-02-18 12:33 | CP.PCM.PN ---
Subjective - Date & Time of Evaluation Date of Evaluation: 02/18/17 Time of Evaluation: 09:00 - Subjective Subjective: awake alert NAD less sob less cough Objective - Vital Signs/Intake and Output Vital Signs (last 24 hours): Temp Pulse Resp BP Pulse Ox 97.3 F L 83 20 108/51 L 97 02/18/17 08:00 02/18/17 09:00 02/18/17 08:00 02/18/17 08:00 02/18/17 08:00 Intake and Output: 02/18/17 02/18/17 06:59 18:59 Intake Total 1020 Output Total 400 Balance 620 - Medications Medications: Current Medications Acetaminophen (Tylenol 325mg Tab) 650 mg PO Q6H PRN PRN Reason: Pain, Mild (1-3) Acetaminophen (Tylenol 325mg Tab) 650 mg PO Q6H PRN PRN Reason: Fever >100.4 F Albuterol/Ipratropium (Duoneb 3 Mg/0.5 Mg (3 Ml) Ud) 3 ml INH RQ4 [facility] Last Admin: 02/18/17 11:41 Dose: 3 ml Albuterol/Ipratropium (Duoneb 3 Mg/0.5 Mg (3 Ml) Ud) 3 ml INH RQ4 PRN PRN Reason: Shortness of Breath Last Admin: 02/13/17 10:05 Dose: 3 ml Bisacodyl (Dulcolax) 10 mg GA DAILY PRN PRN Reason: Constipation Last Admin: 02/12/17 20:13 Dose: 10 mg Docusate Sodium (Colace) 100 mg PO BID PRN PRN Reason: Constipation Last Admin: 02/08/17 20:35 Dose: 100 mg Folic Acid (Folic Acid) 1 mg PO DAILY [facility] Last Admin: 02/18/17 09:56 Dose: Not Given Azithromycin 500 mg/ Sodium (Chloride) 250 mls @ 250 mls/hr IVPB DAILY [facility] PRN Reason: Protocol Last Admin: 02/17/17 10:00 Dose: 250 mls/hr Vancomycin HCl 1 gm/ Sodium (Chloride) 250 mls @ 166.667 mls/hr IVPB DAILY [facility] PRN Reason: Protocol Last Admin: 02/18/17 09:55 Dose: 166.667 mls/hr Piperacillin Sod/Tazobactam (Sod 3.375 gm/ Sodium Chloride) 100 mls @ 100 mls/ hr IVPB Q6 [facility] PRN Reason: Protocol Last Admin: 02/18/17 09:56 Dose: 100 mls/hr Fluconazole (Diflucan Iv 100 Mg/50 Ml Ns) 50 mls @ 50 mls/hr IVPB DAILY [facility] PRN Reason: Protocol Last Admin: 02/18/17 09:55 Dose: 50 mls/hr Iron Sucrose 100 mg/ Sodium (Chloride) 105 mls @ 105 mls/hr IVPB DAILY [facility] Last Admin: 02/18/17 09:55 Dose: 105 mls/hr Lactulose (Enulose) 20 gm PO BID [facility] Lidocaine (Lidoderm) 1 ea TD DAILY [facility] Last Admin: 02/18/17 09:56 Dose: Not Given Magnesium Hydroxide (Milk Of Magnesia) 30 ml PO DAILY PRN PRN Reason: Constipation Last Admin: 02/12/17 20:13 Dose: 30 ml Multivitamins/Minerals (Therapeutic-M Tab) 1 tab PO DAILY [facility] Last Admin: 02/18/17 09:56 Dose: Not Given Nicotine (Nicoderm Cq) 1 patch TD DAILY [facility] Last Admin: 02/18/17 09:56 Dose: Not Given Nystatin (Mycostatin Cream) 1 applic TOP TID [facility] Last Admin: 02/18/17 12:06 Dose: 1 applic Nystatin (Nystop Topical Powder) 1 applic TOP QID [facility] Last Admin: 02/18/17 12:06 Dose: 1 applic Ondansetron HCl (Zofran Inj) 4 mg IVP Q6H PRN PRN Reason: Nausea/Vomiting Fluticasone/Salmeterol (Advair Diskus 250/50) 1 puff IH Q12 [facility] Last Admin: 02/18/17 09:57 Dose: Not Given Sodium Chloride ([place] Nasal [place]) 2 sprays GINGER Q4 [facility] Last Admin: 02/18/17 09:56 Dose: Not Given Thiamine HCl (Vitamin B1 Tab) 100 mg PO DAILY [facility] Last Admin: 02/18/17 09:56 Dose: Not Given - Labs Labs: 02/18/17 04:55 02/18/17 04:55 PT 21.9 Seconds (9.8-13.1) H 02/18/17 09:00 INR 2.0 (0.9-1.2) H 02/18/17 09:00 APTT 19.7 Seconds (25.6-37.1) L 02/09/17 11:55 - Constitutional Appears: Non-toxic, Chronically Ill - Head Exam Head Exam: NORMOCEPHALIC - Eye Exam Eye Exam: PERRL - ENT Exam ENT Exam: Mucous Membranes Dry - Neck Exam Neck Exam: absent: Lymphadenopathy - Respiratory Exam Respiratory Exam: Decreased Breath Sounds, Rhonchi - Cardiovascular Exam Cardiovascular Exam: REGULAR RHYTHM, +S1, +S2 - GI/Abdominal Exam GI & Abdominal Exam: Distended, Soft. absent: Tenderness - Rectal Exam Rectal Exam: Deferred Assessment and Plan (1) Bilateral pneumonia Status: Acute (2) COPD exacerbation Status: Acute (3) Respiratory distress Status: Acute (4) Severe sepsis Status: Acute (5) Alcohol abuse Status: Acute
[2017-02-19] MEDS: Albuterol-Ipratrop 3 mg / 0.5 (3 ml) UD INH SCH ×7 (00:06→23:43)
[2017-02-19] MEDS: Nasal Spray(Ocean spray) NAS SCH ×6 (01:46→21:35)
[2017-02-19] MEDS: Piperacillin/Tazobact 3.375 GM in Sodium Chloride 0.9% 100 ML IVPB SCH ×4 (03:47→21:37)
[2017-02-19 06:31] LABS: BASO # 0.1 K/uL (0.0-0.2); BASO % 0.9 % (0.0-2.0); EOS % 0.6 % (0.0-4.0); HEMATOCRIT 24.7 % (34.0-47.0); LYMPH # 0.9 K/uL (1.0-4.3); LYMPH % 14.3 % (20.0-40.0); MEAN CELL VOLUME 108.2 fl (81.0-99.0); MEAN CORPUSCULAR HEMOGLOBIN 34.9 pg (27.0-31.0); MEAN CORPUSCULAR HGB CONC 32.3 g/dL (33.0-37.0); MEAN PLATELET VOLUME 9.3 fl (7.2-11.7); MONO # 0.3 K/uL (0.0-0.8); MONO % 4.9 % (0.0-10.0); NEUT # 4.9 K/uL (1.8-7.0); NEUT % 79.3 % (50.0-75.0); NRBC % 0.1 % (0.0-0.0); RED CELL DISTRIBUTION WIDTH 17.8 % (11.5-14.5); WHITE BLOOD COUNT 6.2 K/uL (4.8-10.8)
[2017-02-19 07:09] LABS: ALB/GLOB RATIO 0.7 (1.0-2.1); ALKALINE PHOSPHATASE 156 U/L (38-126); ALT/SGPT 48 U/L (9-52); AST/SGOT 32 U/L (14-36); BILIRUBIN,TOTAL 1.6 mg/dl (0.2-1.3); BLOOD UREA NITROGEN 17 mg/dl (7-17); CALCIUM 8.4 mg/dL (8.4-10.2); CARBON DIOXIDE 21 mmol/L (22-30); CHLORIDE 114 mmol/L (98-107); GFR AFRICAN-AMERICAN > 60; GLUCOSE,RANDOM 128 mg/dL (65-105); POTASSIUM 3.2 MMOL/L (3.6-5.0); SODIUM 145 mmol/l (132-148); TOTAL PROTEIN 7.3 G/DL (6.3-8.2)
[2017-02-19] MEDS: Fluticasone-Salmeterol 250-50mcg Diskus IH SCH ×2 (09:24→21:35)
[2017-02-19] MEDS: Fluconazole IV 100mg/50 ml NS 50 ML IVPB SCH (09:25)
[2017-02-19] MEDS: Multivitamin With Minerals Tab PO SCH (09:26)
[2017-02-19] MEDS: Lidocaine 5% Patch TD SCH (09:28)
[2017-02-19] MEDS ORDERED: Potassium CL 10mEq/100ml 100 ML IVPB SCH (10:00)
--- NOTE | 2017-02-19 10:18 | CP.PCM.PN ---
Subjective - Date & Time of Evaluation Date of Evaluation: 02/19/17 Time of Evaluation: 09:00 - Subjective Subjective: No fever more alert, talkative today tolerating PO diet no CP no SOB no abd pain Objective - Vital Signs/Intake and Output Vital Signs (last 24 hours): Temp Pulse Resp BP Pulse Ox 97.9 F 88 18 113/72 96 02/19/17 07:54 02/19/17 07:54 02/19/17 07:54 02/19/17 07:54 02/19/17 07:54 Intake and Output: 02/19/17 02/19/17 06:59 18:59 Intake Total 920 Output Total 450 Balance 470 - Medications Medications: Current Medications Acetaminophen (Tylenol 325mg Tab) 650 mg PO Q6H PRN PRN Reason: Pain, Mild (1-3) Acetaminophen (Tylenol 325mg Tab) 650 mg PO Q6H PRN PRN Reason: Fever >100.4 F Albuterol/Ipratropium (Duoneb 3 Mg/0.5 Mg (3 Ml) Ud) 3 ml INH RQ4 [facility] Last Admin: 02/19/17 07:27 Dose: 3 ml Albuterol/Ipratropium (Duoneb 3 Mg/0.5 Mg (3 Ml) Ud) 3 ml INH RQ4 PRN PRN Reason: Shortness of Breath Last Admin: 02/13/17 10:05 Dose: 3 ml Bisacodyl (Dulcolax) 10 mg TN DAILY PRN PRN Reason: Constipation Last Admin: 02/12/17 20:13 Dose: 10 mg Docusate Sodium (Colace) 100 mg PO BID PRN PRN Reason: Constipation Last Admin: 02/08/17 20:35 Dose: 100 mg Folic Acid (Folic Acid) 1 mg PO DAILY [facility] Last Admin: 02/19/17 09:27 Dose: 1 mg Azithromycin 500 mg/ Sodium (Chloride) 250 mls @ 250 mls/hr IVPB DAILY [facility] PRN Reason: Protocol Last Admin: 02/18/17 10:35 Dose: 250 mls/hr Vancomycin HCl 1 gm/ Sodium (Chloride) 250 mls @ 166.667 mls/hr IVPB DAILY [facility] PRN Reason: Protocol Last Admin: 02/19/17 09:32 Dose: 166.667 mls/hr Piperacillin Sod/Tazobactam (Sod 3.375 gm/ Sodium Chloride) 100 mls @ 100 mls/ hr IVPB Q6 [facility] PRN Reason: Protocol Last Admin: 02/19/17 09:32 Dose: 100 mls/hr Fluconazole (Diflucan Iv 100 Mg/50 Ml Ns) 50 mls @ 50 mls/hr IVPB DAILY [facility] PRN Reason: Protocol Last Admin: 02/19/17 09:25 Dose: 50 mls/hr Iron Sucrose 100 mg/ Sodium (Chloride) 105 mls @ 105 mls/hr IVPB DAILY [facility] Last Admin: 02/18/17 09:55 Dose: 105 mls/hr Potassium Chloride (Potassium Chloride 10 Meq/100 Ml) 100 mls @ 100 mls/hr IVPB Q1 [facility] Stop: 02/19/17 12:59 Lactulose (Enulose) 20 gm PO BID [facility] Last Admin: 02/19/17 09:26 Dose: 20 gm Lidocaine (Lidoderm) 1 ea TD DAILY [facility] Last Admin: 02/19/17 09:28 Dose: 1 ea Magnesium Hydroxide (Milk Of Magnesia) 30 ml PO DAILY PRN PRN Reason: Constipation Last Admin: 02/12/17 20:13 Dose: 30 ml Multivitamins/Minerals (Therapeutic-M Tab) 1 tab PO DAILY [facility] Last Admin: 02/19/17 09:26 Dose: 1 tab Nicotine (Nicoderm Cq) 1 patch TD DAILY [facility] Last Admin: 02/19/17 09:29 Dose: 1 patch Nystatin (Mycostatin Cream) 1 applic TOP TID [facility] Last Admin: 02/18/17 16:33 Dose: 1 applic Nystatin (Nystop Topical Powder) 1 applic TOP QID [facility] Last Admin: 02/19/17 09:26 Dose: 1 applic Ondansetron HCl (Zofran Inj) 4 mg IVP Q6H PRN PRN Reason: Nausea/Vomiting Fluticasone/Salmeterol (Advair Diskus 250/50) 1 puff IH Q12 [facility] Last Admin: 02/19/17 09:24 Dose: 1 puff Sodium Chloride ([place] Nasal Delta) 2 sprays GINGER Q4 [facility] Last Admin: 02/19/17 09:27 Dose: 2 spray Thiamine HCl (Vitamin B1 Tab) 100 mg PO DAILY [facility] Last Admin: 02/19/17 09:27 Dose: 100 mg - Labs Labs: 02/19/17 05:45 02/19/17 05:45 PT 21.9 Seconds (9.8-13.1) H 02/18/17 09:00 INR 2.0 (0.9-1.2) H 02/18/17 09:00 APTT 19.7 Seconds (25.6-37.1) L 02/09/17 11:55 - Constitutional Appears: Chronically Ill, more alert today - Head Exam Head Exam: NORMOCEPHALIC - Eye Exam Eye Exam: EOMI Pupil Exam: NORMAL ACCOMMODATION - ENT Exam ENT Exam: Mucous Membranes Dry, Normal External Ear Exam - Neck Exam Neck Exam: Full ROM. absent: Meningismus - Respiratory Exam Respiratory Exam: + Rales, Rhonchi, mild Wheezes on NC - Cardiovascular Exam Cardiovascular Exam: REGULAR RHYTHM, +S1, +S2 - GI/Abdominal Exam GI & Abdominal Exam: Soft, Normal Bowel Sounds. absent: Tenderness - Extremities Exam Extremities Exam: Normal Capillary Refill, Pedal Edema. absent: Calf Tenderness - Back Exam Back Exam: absent: CVA tenderness (L), CVA tenderness (R) - Neurological Exam Neurological Exam: Awake Additional comments: answers questions appropriately moves all extremities- follows simple commands - Psychiatric Exam Psychiatric exam: irritable - Skin Skin Exam: Dry, Normal Color, Warm Assessment and Plan - Assessment and Plan (Free Text) Assessment: 51 y/o female with COPD , fatty liver, Chronic ETOH abuse ( daily 8 cups of 8 ounce vodka ) , smoker , chronic lower back pain brought to ER for evaluation by EMS for facial and lower extremity swelling , SOB and lower back pain. As per patient she has some baseline SOB with ambulation and has chronic lower back pain . Pt was having some lower back pain for which she took some Motrin and Advil PM. and when she woke up she noticed her face and eyes to be swollen and her lower extremities were swollen as well. She could not get out of bed and was having significant back pain . In the ED , was found to be in respiratory distress,with dyspnea RR 35 O2sat 94 %, slightly hypotensive BP 96/65 tachycardic HR 122. She was given 2 Duonebs in the field, 125 mg IV solumedrol in ER , started on IVF and placed on High Flow O2 ,20 LPM FIO2 60 % Her ABG showed PO2 70 PCO2 35 pH 7.38 . CXR showed bilateral infiltrates worse on the right WBC found to be elevated 16.8 Hgb 10 BUN/Cr 20/1.4 rigoberto 6.6 ASt / ALT 150/26 lactic acid 2.6 ETOH levels 73 Physical exam was significant for tremors , increased work of breathing , periorbital, facial and lower extremity edema, her breath smelled of alcohol. She was admitted in ICU for close monitoring and treatment, she improved and was transferred to telemetry but became very agitated , restless , confused , tachypneic and tachycardic and so was transferred back to ICU for close monitoring. She was placed on High Flow Oxygen and started on Precedex drip and later switched to librium and Ativan PRN. She became very lethargic so all sedation medications were stopped including pain medications. CT L-S spine showed DJD and some compression fractures that could be reason for her back pain. Anesthesiology,spine surgeon were consulted . Her confusion improved somewhat and was switched to NC maintaining her O2 sat and transferred to telemetry. MRI of thoracic and Lumbar spine: Compression fractures , chronic Attempted to get in touch with her PMD - DR Sidney Suarez - on vacation, will be back Feb 21 1. Severe Sepsis- resolving Most likely secondary to multifocal pneumonia patient was hypotensive,tachycardic,hypoxemic with WBC 16.8 and CXR showed bilateral infiltrates, lactate 2.6 on admission Sputum cx positive for yeast CT chest showed persistent dense bilateral lower lobe infiltrates. Restarted Vanco , Zosyn and Zithromax IV ID following 2.Acute hypoxemic and hypercarbic respiratory failure Most likely secondary to multi lobar Pneumonia and COPD exacerbation PE ruled out - neg CTA and V/Q scan was placed on High Flow Oxygen initially , and at present on 2 liters O2 via NC maintaining her airway and saturating 95-98 % discontinued Opiates , sedatives and anti Psychotics as these make pt very sedated Off PreCedex drip since 02/04 Continue Duonebs Tapered off steroids , on Advair INH Pulmonary and ID consulted Dr Mojica re consulted to re-evaluate pt Restarted IV Vanco Zosyn and Zithromax since CT chest showed persistent consolidations ENT consulted and case discussed with Dr. Hernandez . Larynx appears normal , vocal cords with no mass 3. Multifocal Pneumonia ID and pulmonary consulted Received Vanco, Zosyn, Azithro and Diflucan for 2 weeks , so antibiotics were discontinued CT chest showed persistent bilateral lower lobe dense consolidations - Resumed Iv antibiotics patient is a long time smoker so will need to follow up resolution of infiltrates to rule out any underlying malignancy 4. Facial and lower extremity edema prob sce to cirrhosis unclear etiology of facial edema , resolved TSH : normal Given Solumedrol 125mg , Benadry and Pepcid LE venous doppler negative for DVT Echo showed normal LVF EF 65 -70 % given lasix 5. ETOH abuse / Delirium Tremens/alcoholic encephalopathy was started on Precedex drip in ICU , was agitated /restless and has been off drip since 02/04 tapered off Librium continue Thiamine, Folic acid Seizure precautions/ withdrawal precautions psych consulted- rec Risperdal or Haldol for agitation however pt gets very sedated on theses meds when given.Discontinued all narcotics and psych meds Ammonia level76 today. Started lactulose 20 gm PO BID . Will give 200 g TN stat . GI consulted MELD score 15 6. AMS ? sec to Encephalopathy off all sedatives and opiates Ammonia levels elevated - Started lactulose B12 level normal TSH normal CT of head x 2 : neg MRI brain showed mild generalized atrophy EEG : Cerebral slowing Neurology consulted - Dr Mora Gi consulted 7. SUNDAR improved no prior records and unknown baseline renal function improved 8. COPD exacerbation-- improved continue Genny pulmonary consulted counseled on smoking tapered off IV solumedrol 9. Alcohol Liver Dis/ Cirrhosis Bill 6.6 AST 150 on admission. Bili trending down to 2.1, afebrile CT chest showed hepatomegaly , fatty infiltration , some ascitic fluid and umbilical vein recannulization significant for portal hypertension \ US showed: Hepatomegaly with steatosis.Trace perihepatic ascites.Nonspecific gallbladder wall thickening. Gallbladder wall thickening is a nonspecific finding which can be seen with ascites, hepatitis, cholecystitis,CHF or hypoproteinemic states. patient has no abdominal pain , no fever , no signs of cholecystitis Continue monitoring GI consulted MELD score 15 10. Chronic Lower back pain likely sec to Compression Fractures Ct chest also showed mild chronic compression fracture in mid thoracic spine Multiple attempts made to have pt go for CT of [place] and T spine however pt could not tolerate and could not remain still for the procedure - finally went - CT of the spine showed Acute Thoracic and Lumbar spine compression fractures Neurosurgery consulted- no NSS intervention , rec PT, Pain mgt Pain management consulted and started on Morphine and lidoderm patch . D/c morphine since patient is very somnolent and lethargic MRI spine showed no acute fracture or significant disc protrusion With urinary retention- Gaffney in place draining well now off all opiates, sedatives 11.Anemia unclear etiology iron levels dropping. probably secondary to poor po intake Will start Venofer B12 levels normal cont Thiamine 12. Thrombocytopenia sec to alcohol, liver dis and meds HIT : negative d/c Lovenox plt 95 K 13.Urinary retention unclear etiology most likely secondary to immobility, pain medication Straight cath placed x 2 with 1000 ml Gaffney cath placed and draining well 14. Generalized maculopapular rash unclear etiology possible candidiasis will start Diflucan IV Nystatin topical 15. DVT prophylaxis GI prophylaxis d/c lovenox due to thrombocytopenia Pepcid
--- NOTE | 2017-02-19 11:00 | CP.PCM.PN ---
<Yelena Escobedo - Last Filed: 02/19/17 11:03> Subjective - Date & Time of Evaluation Date of Evaluation: 02/19/17 Time of Evaluation: 08:40 - Subjective Subjective: Gastroenterology Fellow/PGY5 Progress Note Patient oriented to self. Alert and awake. Notes shortness of breath on first awakening, now resolved. Notes abdominal discomfort. Tolerating diet. Two bowel movements yesterday. 12-point review of systems negative except for as above. Objective - Vital Signs/Intake and Output Vital Signs (last 24 hours): Temp Pulse Resp BP Pulse Ox 97.9 F 88 18 113/72 96 02/19/17 07:54 02/19/17 07:54 02/19/17 07:54 02/19/17 07:54 02/19/17 07:54 Intake and Output: 02/19/17 02/19/17 06:59 18:59 Intake Total 920 Output Total 450 Balance 470 - Medications Medications: Current Medications Acetaminophen (Tylenol 325mg Tab) 650 mg PO Q6H PRN PRN Reason: Pain, Mild (1-3) Acetaminophen (Tylenol 325mg Tab) 650 mg PO Q6H PRN PRN Reason: Fever >100.4 F Albuterol/Ipratropium (Duoneb 3 Mg/0.5 Mg (3 Ml) Ud) 3 ml INH RQ4 [facility] Last Admin: 02/19/17 07:27 Dose: 3 ml Albuterol/Ipratropium (Duoneb 3 Mg/0.5 Mg (3 Ml) Ud) 3 ml INH RQ4 PRN PRN Reason: Shortness of Breath Last Admin: 02/13/17 10:05 Dose: 3 ml Bisacodyl (Dulcolax) 10 mg [facility] DAILY PRN PRN Reason: Constipation Last Admin: 02/12/17 20:13 Dose: 10 mg Docusate Sodium (Colace) 100 mg PO BID PRN PRN Reason: Constipation Last Admin: 02/08/17 20:35 Dose: 100 mg Folic Acid (Folic Acid) 1 mg PO DAILY [facility] Last Admin: 02/19/17 09:27 Dose: 1 mg Azithromycin 500 mg/ Sodium (Chloride) 250 mls @ 250 mls/hr IVPB DAILY [facility] PRN Reason: Protocol Last Admin: 02/18/17 10:35 Dose: 250 mls/hr Vancomycin HCl 1 gm/ Sodium (Chloride) 250 mls @ 166.667 mls/hr IVPB DAILY [facility] PRN Reason: Protocol Last Admin: 02/19/17 09:32 Dose: 166.667 mls/hr Piperacillin Sod/Tazobactam (Sod 3.375 gm/ Sodium Chloride) 100 mls @ 100 mls/ hr IVPB Q6 [facility] PRN Reason: Protocol Last Admin: 02/19/17 09:32 Dose: 100 mls/hr Fluconazole (Diflucan Iv 100 Mg/50 Ml Ns) 50 mls @ 50 mls/hr IVPB DAILY [facility] PRN Reason: Protocol Last Admin: 02/19/17 09:25 Dose: 50 mls/hr Iron Sucrose 100 mg/ Sodium (Chloride) 105 mls @ 105 mls/hr IVPB DAILY [facility] Last Admin: 02/18/17 09:55 Dose: 105 mls/hr Potassium Chloride (Potassium Chloride 10 Meq/100 Ml) 100 mls @ 100 mls/hr IVPB Q1 [facility] Stop: 02/19/17 12:59 Lactulose (Enulose) 20 gm PO BID [facility] Last Admin: 02/19/17 09:26 Dose: 20 gm Lidocaine (Lidoderm) 1 ea TD DAILY [facility] Last Admin: 02/19/17 09:28 Dose: 1 ea Magnesium Hydroxide (Milk Of Magnesia) 30 ml PO DAILY PRN PRN Reason: Constipation Last Admin: 02/12/17 20:13 Dose: 30 ml Multivitamins/Minerals (Therapeutic-M Tab) 1 tab PO DAILY [facility] Last Admin: 02/19/17 09:26 Dose: 1 tab Nicotine (Nicoderm Cq) 1 patch TD DAILY [facility] Last Admin: 02/19/17 09:29 Dose: 1 patch Nystatin (Mycostatin Cream) 1 applic TOP TID [facility] Last Admin: 02/18/17 16:33 Dose: 1 applic Nystatin (Nystop Topical Powder) 1 applic TOP QID [facility] Last Admin: 02/19/17 09:26 Dose: 1 applic Ondansetron HCl (Zofran Inj) 4 mg IVP Q6H PRN PRN Reason: Nausea/Vomiting Fluticasone/Salmeterol (Advair Diskus 250/50) 1 puff IH Q12 [facility] Last Admin: 02/19/17 09:24 Dose: 1 puff Sodium Chloride ([place] Nasal [place]) 2 sprays GINGER Q4 [facility] Last Admin: 02/19/17 09:27 Dose: 2 spray Thiamine HCl (Vitamin B1 Tab) 100 mg PO DAILY [facility] Last Admin: 02/19/17 09:27 Dose: 100 mg - Labs Labs: 02/19/17 05:45 02/19/17 05:45 PT 21.9 Seconds (9.8-13.1) H 02/18/17 09:00 INR 2.0 (0.9-1.2) H 02/18/17 09:00 APTT 19.7 Seconds (25.6-37.1) L 02/09/17 11:55 - Constitutional Appears: Non-toxic, No Acute Distress - Head Exam Head Exam: NORMAL INSPECTION, NORMOCEPHALIC - Eye Exam Eye Exam: EOMI, PERRL Pupil Exam: PERRL. absent: Miosis, Mydriatic - ENT Exam ENT Exam: Mucous Membranes Moist, Normal Oropharynx - Neck Exam Neck Exam: Full ROM, Normal Inspection - Respiratory Exam Respiratory Exam: Clear to Ausculation Bilateral. absent: Rales, Rhonchi, Wheezes - Cardiovascular Exam Cardiovascular Exam: RRR, +S1, +S2. absent: Gallop, Rubs - GI/Abdominal Exam GI & Abdominal Exam: Soft, Normal Bowel Sounds, Organomegaly. absent: Guarding , Rigid, Tenderness, Rebound - Extremities Exam Extremities Exam: Normal Inspection. absent: Pedal Edema - Neurological Exam Neurological Exam: Alert, Awake Additional comments: refused asterixis exam - Psychiatric Exam Psychiatric exam: Normal Affect, Normal Mood - Skin Skin Exam: Dry, Intact, Normal Color, Warm Assessment and Plan - Assessment and Plan (Free Text) Assessment: 51 year old female with history of COPD and Alcohol abuse presenting with shortness of breath and leg swelling. Since admission, treatment for severe sepsis 2/2 hypoxic/hypercarbic respiratory failure 2/2 multifocal community acquired pneumonia complicated by COPD exacerbation. GI consultation for decompensated alcoholic cirrhosis 2/2 hepatic encephalopathy. Plan: >MELD on admission , 02/18- 18 >mentation improving >continue Lactulose 20g BID, titrate 2-3 BMs/day >autoimmune workup negative, pending LKM >daily MELD labs >strict I&Os >low salt diet >will follow clinical course <Carlos Kaba - Last Filed: 02/19/17 15:15> Objective - Vital Signs/Intake and Output Vital Signs (last 24 hours): Temp Pulse Resp BP Pulse Ox 98.4 F 88 18 115/70 100 02/19/17 12:18 02/19/17 12:18 02/19/17 12:18 02/19/17 12:18 02/19/17 12:18 Intake and Output: 02/19/17 02/19/17 06:59 18:59 Intake Total 920 Output Total 450 Balance 470 - Medications Medications: Current Medications Acetaminophen (Tylenol 325mg Tab) 650 mg PO Q6H PRN PRN Reason: Pain, Mild (1-3) Acetaminophen (Tylenol 325mg Tab) 650 mg PO Q6H PRN PRN Reason: Fever >100.4 F Albuterol/Ipratropium (Duoneb 3 Mg/0.5 Mg (3 Ml) Ud) 3 ml INH RQ4 [facility] Last Admin: 02/19/17 15:00 Dose: 3 ml Albuterol/Ipratropium (Duoneb 3 Mg/0.5 Mg (3 Ml) Ud) 3 ml INH RQ4 PRN PRN Reason: Shortness of Breath Last Admin: 02/13/17 10:05 Dose: 3 ml Bisacodyl (Dulcolax) 10 mg [facility] DAILY PRN PRN Reason: Constipation Last Admin: 02/12/17 20:13 Dose: 10 mg Docusate Sodium (Colace) 100 mg PO BID PRN PRN Reason: Constipation Last Admin: 02/08/17 20:35 Dose: 100 mg Folic Acid (Folic Acid) 1 mg PO DAILY [facility] Last Admin: 02/19/17 09:27 Dose: 1 mg Azithromycin 500 mg/ Sodium (Chloride) 250 mls @ 250 mls/hr IVPB DAILY [facility] PRN Reason: Protocol Last Admin: 02/19/17 12:18 Dose: 250 mls/hr Vancomycin HCl 1 gm/ Sodium (Chloride) 250 mls @ 166.667 mls/hr IVPB DAILY [facility] PRN Reason: Protocol Last Admin: 02/19/17 09:32 Dose: 166.667 mls/hr Piperacillin Sod/Tazobactam (Sod 3.375 gm/ Sodium Chloride) 100 mls @ 100 mls/ hr IVPB Q6 [facility] PRN Reason: Protocol Last Admin: 02/19/17 09:32 Dose: 100 mls/hr Fluconazole (Diflucan Iv 100 Mg/50 Ml Ns) 50 mls @ 50 mls/hr IVPB DAILY [facility] PRN Reason: Protocol Last Admin: 02/19/17 09:25 Dose: 50 mls/hr Iron Sucrose 100 mg/ Sodium (Chloride) 105 mls @ 105 mls/hr IVPB DAILY [facility] Last Admin: 02/19/17 11:57 Dose: 105 mls/hr Potassium Chloride (Potassium Cl 10meq/50ml Sterile Water) 50 mls @ 50 mls/hr IV Q1 [facility] Stop: 02/19/17 15:59 Last Admin: 02/19/17 14:24 Dose: 50 mls/hr Lactulose (Enulose) 20 gm PO BID [facility] Last Admin: 02/19/17 09:26 Dose: 20 gm Lidocaine (Lidoderm) 1 ea TD DAILY [facility] Last Admin: 02/19/17 09:28 Dose: 1 ea Magnesium Hydroxide (Milk Of Magnesia) 30 ml PO DAILY PRN PRN Reason: Constipation Last Admin: 02/12/17 20:13 Dose: 30 ml Multivitamins/Minerals (Therapeutic-M Tab) 1 tab PO DAILY [facility] Last Admin: 02/19/17 09:26 Dose: 1 tab Nicotine (Nicoderm Cq) 1 patch TD DAILY [facility] Last Admin: 02/19/17 09:29 Dose: 1 patch Nystatin (Mycostatin Cream) 1 applic TOP TID [facility] Last Admin: 02/19/17 12:27 Dose: Not Given Nystatin (Nystop Topical Powder) 1 applic TOP QID [facility] Last Admin: 02/19/17 12:26 Dose: 1 applic Ondansetron HCl (Zofran Inj) 4 mg IVP Q6H PRN PRN Reason: Nausea/Vomiting Fluticasone/Salmeterol (Advair Diskus 250/50) 1 puff IH Q12 [facility] Last Admin: 02/19/17 09:24 Dose: 1 puff Sodium Chloride ([place] Nasal [place]) 2 sprays GINGER Q4 [facility] Last Admin: 02/19/17 09:27 Dose: 2 spray Thiamine HCl (Vitamin B1 Tab) 100 mg PO DAILY [facility] Last Admin: 02/19/17 09:27 Dose: 100 mg - Labs Labs: 02/19/17 05:45 02/19/17 05:45 PT 21.9 Seconds (9.8-13.1) H 02/18/17 09:00 INR 2.0 (0.9-1.2) H 02/18/17 09:00 APTT 19.7 Seconds (25.6-37.1) L 02/09/17 11:55 Attending/Attestation - Attestation I have personally seen and examined this patient.: Yes I have fully participated in the care of the patient.: Yes I have reviewed all pertinent clinical information, including history, physical exam and plan: Yes Notes (Text): 02/19/17 15:14 51 year old female with h/o COPD, ETOH abuse admitted with COPD exacerbation, pneumonia, found to have alcoholic cirrhosis and hepatic encephalopathy. 1. Alcoholic cirrhosis 2. Hepatic encephalopathy Plan: -continue lactulose as above -no ascites or HCC on Liver CT -low salt diet -abx for PNA -mental status improved somewhat -supportive care -diet as tolerated
[2017-02-19] MEDS: Azithromycin 500 MG in Sodium Chloride 0.9% 250 ML IVPB SCH (12:18)
[2017-02-19] MEDS: Potassium CL 10 MEQ/50 ML 50 ML IV SCH ×3 (12:24→15:35)
[2017-02-20] MEDS: Nasal Spray(Ocean spray) NAS SCH ×7 (02:43→21:24)
[2017-02-20] MEDS: Piperacillin/Tazobact 3.375 GM in Sodium Chloride 0.9% 100 ML IVPB SCH ×4 (04:27→21:20)
[2017-02-20] MEDS: Albuterol-Ipratrop 3 mg / 0.5 (3 ml) UD INH SCH ×6 (04:57→23:36)
--- NOTE | 2017-02-20 07:54 | CP.PCM.PN ---
<Yelena Escobedo - Last Filed: 02/20/17 07:52> Subjective - Date & Time of Evaluation Date of Evaluation: 02/20/17 Time of Evaluation: 07:52 - Subjective Subjective: Gastroenterology Fellow/PGY5 Progress Note Patient oriented to self and place. Alert and awake. Denies abdominal pain. Tolerating diet. One bowel movement overnight. 12-point review of systems negative except for as above. Objective - Vital Signs/Intake and Output Vital Signs (last 24 hours): Temp Pulse Resp BP Pulse Ox 97.2 F L 81 18 130/83 99 02/20/17 05:28 02/20/17 05:28 02/20/17 05:28 02/20/17 05:28 02/20/17 05:28 Intake and Output: 02/20/17 02/20/17 06:59 18:59 Intake Total 1910 Output Total 850 Balance 1060 - Medications Medications: Current Medications Acetaminophen (Tylenol 325mg Tab) 650 mg PO Q6H PRN PRN Reason: Pain, Mild (1-3) Acetaminophen (Tylenol 325mg Tab) 650 mg PO Q6H PRN PRN Reason: Fever >100.4 F Albuterol/Ipratropium (Duoneb 3 Mg/0.5 Mg (3 Ml) Ud) 3 ml INH RQ4 [facility] Last Admin: 02/20/17 07:29 Dose: 3 ml Albuterol/Ipratropium (Duoneb 3 Mg/0.5 Mg (3 Ml) Ud) 3 ml INH RQ4 PRN PRN Reason: Shortness of Breath Last Admin: 02/13/17 10:05 Dose: 3 ml Bisacodyl (Dulcolax) 10 mg [facility] DAILY PRN PRN Reason: Constipation Last Admin: 02/12/17 20:13 Dose: 10 mg Docusate Sodium (Colace) 100 mg PO BID PRN PRN Reason: Constipation Last Admin: 02/08/17 20:35 Dose: 100 mg Folic Acid (Folic Acid) 1 mg PO DAILY [facility] Last Admin: 02/19/17 09:27 Dose: 1 mg Azithromycin 500 mg/ Sodium (Chloride) 250 mls @ 250 mls/hr IVPB DAILY [facility] PRN Reason: Protocol Last Admin: 02/19/17 12:18 Dose: 250 mls/hr Vancomycin HCl 1 gm/ Sodium (Chloride) 250 mls @ 166.667 mls/hr IVPB DAILY [facility] PRN Reason: Protocol Last Admin: 02/19/17 09:32 Dose: 166.667 mls/hr Piperacillin Sod/Tazobactam (Sod 3.375 gm/ Sodium Chloride) 100 mls @ 100 mls/ hr IVPB Q6 [facility] PRN Reason: Protocol Last Admin: 02/20/17 04:27 Dose: 100 mls/hr Fluconazole (Diflucan Iv 100 Mg/50 Ml Ns) 50 mls @ 50 mls/hr IVPB DAILY [facility] PRN Reason: Protocol Last Admin: 02/19/17 09:25 Dose: 50 mls/hr Iron Sucrose 100 mg/ Sodium (Chloride) 105 mls @ 105 mls/hr IVPB DAILY [facility] Last Admin: 02/19/17 11:57 Dose: 105 mls/hr Lactulose (Enulose) 20 gm PO BID [facility] Last Admin: 02/19/17 17:16 Dose: 20 gm Lidocaine (Lidoderm) 1 ea TD DAILY [facility] Last Admin: 02/19/17 09:28 Dose: 1 ea Magnesium Hydroxide (Milk Of Magnesia) 30 ml PO DAILY PRN PRN Reason: Constipation Last Admin: 02/12/17 20:13 Dose: 30 ml Multivitamins/Minerals (Therapeutic-M Tab) 1 tab PO DAILY [facility] Last Admin: 02/19/17 09:26 Dose: 1 tab Nicotine (Nicoderm Cq) 1 patch TD DAILY [facility] Last Admin: 02/19/17 09:29 Dose: 1 patch Nystatin (Mycostatin Cream) 1 applic TOP TID [facility] Last Admin: 02/19/17 17:23 Dose: 1 applic Nystatin (Nystop Topical Powder) 1 applic TOP QID [facility] Last Admin: 02/19/17 21:36 Dose: 1 applic Ondansetron HCl (Zofran Inj) 4 mg IVP Q6H PRN PRN Reason: Nausea/Vomiting Fluticasone/Salmeterol (Advair Diskus 250/50) 1 puff IH Q12 [facility] Last Admin: 02/19/17 21:35 Dose: 1 puff Sodium Chloride ([place] Nasal [place]) 2 sprays GINGER Q4 [facility] Last Admin: 02/20/17 06:07 Dose: Not Given Thiamine HCl (Vitamin B1 Tab) 100 mg PO DAILY [facility] Last Admin: 02/19/17 09:27 Dose: 100 mg - Labs Labs: 02/19/17 05:45 02/19/17 05:45 PT 21.9 Seconds (9.8-13.1) H 02/18/17 09:00 INR 2.0 (0.9-1.2) H 02/18/17 09:00 APTT 19.7 Seconds (25.6-37.1) L 02/09/17 11:55 - Constitutional Appears: Non-toxic, No Acute Distress - Head Exam Head Exam: ATRAUMATIC, NORMOCEPHALIC - Eye Exam Eye Exam: EOMI, PERRL. absent: Scleral icterus Pupil Exam: PERRL. absent: Miosis, Mydriatic - ENT Exam ENT Exam: Mucous Membranes Moist, Normal Oropharynx - Neck Exam Neck Exam: Full ROM, Normal Inspection - Respiratory Exam Respiratory Exam: Clear to Ausculation Bilateral. absent: Rales, Rhonchi, Wheezes - Cardiovascular Exam Cardiovascular Exam: RRR, +S1, +S2. absent: Gallop, Rubs - GI/Abdominal Exam GI & Abdominal Exam: Soft, Normal Bowel Sounds. absent: Distended, Firm, Guarding, Rigid, Tenderness, Organomegaly, Rebound - Extremities Exam Extremities Exam: Normal Inspection. absent: Pedal Edema - Neurological Exam Neurological Exam: Alert, Awake - Psychiatric Exam Psychiatric exam: Normal Affect, Normal Mood - Skin Skin Exam: Dry, Erythema, Intact, Rash, Warm Assessment and Plan - Assessment and Plan (Free Text) Assessment: 51 year old female with history of COPD and Alcohol abuse presenting with shortness of breath and leg swelling. Since admission, treatment for severe sepsis 2/2 hypoxic/hypercarbic respiratory failure 2/2 multifocal community acquired pneumonia complicated by COPD exacerbation. GI consultation for decompensated alcoholic cirrhosis 2/2 hepatic encephalopathy. Plan: >MELD 02/18- , today pending >continue Lactulose 20g BID, titrate 2-3 BMs/day >autoimmune workup: positive SHAYLA, pending LKM >daily MELD labs >strict I&Os >low salt diet >on vancomycin, zosyn, azithromycin for PNA >on Diflucan for possible candidiasis with maculopapular rash >will follow clinical course <Carlos Kaba - Last Filed: 02/20/17 11:05> Objective - Vital Signs/Intake and Output Vital Signs (last 24 hours): Temp Pulse Resp BP Pulse Ox 97.4 F L 77 20 118/63 98 02/20/17 08:17 02/20/17 08:17 02/20/17 08:17 02/20/17 08:17 02/20/17 08:17 Intake and Output: 02/20/17 02/20/17 06:59 18:59 Intake Total 1910 Output Total 850 Balance 1060 - Medications Medications: Current Medications Acetaminophen (Tylenol 325mg Tab) 650 mg PO Q6H PRN PRN Reason: Pain, Mild (1-3) Acetaminophen (Tylenol 325mg Tab) 650 mg PO Q6H PRN PRN Reason: Fever >100.4 F Albuterol/Ipratropium (Duoneb 3 Mg/0.5 Mg (3 Ml) Ud) 3 ml INH RQ4 [facility] Last Admin: 02/20/17 07:29 Dose: 3 ml Albuterol/Ipratropium (Duoneb 3 Mg/0.5 Mg (3 Ml) Ud) 3 ml INH RQ4 PRN PRN Reason: Shortness of Breath Last Admin: 02/13/17 10:05 Dose: 3 ml Bisacodyl (Dulcolax) 10 mg [facility] DAILY PRN PRN Reason: Constipation Last Admin: 02/12/17 20:13 Dose: 10 mg Docusate Sodium (Colace) 100 mg PO BID PRN PRN Reason: Constipation Last Admin: 02/08/17 20:35 Dose: 100 mg Folic Acid (Folic Acid) 1 mg PO DAILY [facility] Last Admin: 02/20/17 08:59 Dose: 1 mg Azithromycin 500 mg/ Sodium (Chloride) 250 mls @ 250 mls/hr IVPB DAILY [facility] PRN Reason: Protocol Last Admin: 02/19/17 12:18 Dose: 250 mls/hr Vancomycin HCl 1 gm/ Sodium (Chloride) 250 mls @ 166.667 mls/hr IVPB DAILY [facility] PRN Reason: Protocol Last Admin: 02/19/17 09:32 Dose: 166.667 mls/hr Piperacillin Sod/Tazobactam (Sod 3.375 gm/ Sodium Chloride) 100 mls @ 100 mls/ hr IVPB Q6 [facility] PRN Reason: Protocol Last Admin: 02/20/17 04:27 Dose: 100 mls/hr Fluconazole (Diflucan Iv 100 Mg/50 Ml Ns) 50 mls @ 50 mls/hr IVPB DAILY [facility] PRN Reason: Protocol Last Admin: 02/19/17 09:25 Dose: 50 mls/hr Iron Sucrose 100 mg/ Sodium (Chloride) 105 mls @ 105 mls/hr IVPB DAILY [facility] Last Admin: 02/19/17 11:57 Dose: 105 mls/hr Lactulose (Enulose) 20 gm PO BID [facility] Last Admin: 02/20/17 08:59 Dose: 20 gm Lidocaine (Lidoderm) 1 ea TD DAILY [facility] Last Admin: 02/20/17 08:58 Dose: 1 ea Magnesium Hydroxide (Milk Of Magnesia) 30 ml PO DAILY PRN PRN Reason: Constipation Last Admin: 02/12/17 20:13 Dose: 30 ml Multivitamins/Minerals (Therapeutic-M Tab) 1 tab PO DAILY [facility] Last Admin: 02/20/17 08:59 Dose: 1 tab Nicotine (Nicoderm Cq) 1 patch TD DAILY [facility] Last Admin: 02/20/17 08:59 Dose: 1 patch Nystatin (Mycostatin Cream) 1 applic TOP TID [facility] Last Admin: 02/20/17 08:59 Dose: 1 applic Nystatin (Nystop Topical Powder) 1 applic TOP QID [facility] Last Admin: 02/20/17 08:58 Dose: 1 applic Ondansetron HCl (Zofran Inj) 4 mg IVP Q6H PRN PRN Reason: Nausea/Vomiting Fluticasone/Salmeterol (Advair Diskus 250/50) 1 puff IH Q12 [facility] Last Admin: 02/20/17 08:57 Dose: 1 puff Sodium Chloride ([place] Nasal [place]) 2 sprays GINGER Q4 [facility] Last Admin: 02/20/17 08:57 Dose: 2 spray Thiamine HCl (Vitamin B1 Tab) 100 mg PO DAILY [facility] Last Admin: 02/20/17 08:59 Dose: 100 mg - Labs Labs: 02/19/17 05:45 02/20/17 06:30 PT 21.9 Seconds (9.8-13.1) H 02/18/17 09:00 INR 2.0 (0.9-1.2) H 02/18/17 09:00 APTT 19.7 Seconds (25.6-37.1) L 02/09/17 11:55 Attending/Attestation - Attestation I have personally seen and examined this patient.: Yes I have fully participated in the care of the patient.: Yes I have reviewed all pertinent clinical information, including history, physical exam and plan: Yes Notes (Text): 02/20/17 11:05 51 year old female with h/o COPD, ETOH abuse admitted with COPD exacerbation, pneumonia, found to have alcoholic cirrhosis and hepatic encephalopathy. 1. Alcoholic cirrhosis 2. Hepatic encephalopathy Plan: -continue lactulose as above -low salt diet -imporoving -continue abx -supportive care -diet as tolerated
[2017-02-20 08:09] LABS: ALB/GLOB RATIO 0.7 (1.0-2.1); ALKALINE PHOSPHATASE 147 U/L (38-126); ALT/SGPT 47 U/L (9-52); AST/SGOT 40 U/L (14-36); BLOOD UREA NITROGEN 15 mg/dl (7-17); CALCIUM 8.7 mg/dL (8.4-10.2); CARBON DIOXIDE 23 mmol/L (22-30); CHLORIDE 112 mmol/L (98-107); GFR AFRICAN-AMERICAN > 60; GLUCOSE,RANDOM 83 mg/dL (65-105); POTASSIUM 3.3 MMOL/L (3.6-5.0); SODIUM 145 mmol/l (132-148); TOTAL PROTEIN 6.8 G/DL (6.3-8.2)
[2017-02-20] MEDS: Fluticasone-Salmeterol 250-50mcg Diskus IH SCH ×2 (08:57→21:23)
[2017-02-20] MEDS: Lidocaine 5% Patch TD SCH (08:58)
[2017-02-20] MEDS: Multivitamin With Minerals Tab PO SCH (08:59)
[2017-02-20] MEDS ORDERED: Potassium Chloride 20 mEq ER Tab PO ONE (09:00)
[2017-02-20] MEDS: Fluconazole IV 100mg/50 ml NS 50 ML IVPB SCH (11:15)
[2017-02-20] MEDS: Azithromycin 500 MG in Sodium Chloride 0.9% 250 ML IVPB SCH (11:16)
--- NOTE | 2017-02-20 12:37 | CP.PCM.PN ---
Subjective - Date & Time of Evaluation Date of Evaluation: 02/20/17 Time of Evaluation: 07:00 - Subjective Subjective: events noted iv rx in progress will order vanco level Objective - Vital Signs/Intake and Output Vital Signs (last 24 hours): Temp Pulse Resp BP Pulse Ox 97.4 F L 82 20 118/63 98 02/20/17 08:17 02/20/17 09:00 02/20/17 08:17 02/20/17 08:17 02/20/17 08:17 Intake and Output: 02/20/17 02/20/17 06:59 18:59 Intake Total 1910 Output Total 850 Balance 1060 - Medications Medications: Current Medications Acetaminophen (Tylenol 325mg Tab) 650 mg PO Q6H PRN PRN Reason: Pain, Mild (1-3) Acetaminophen (Tylenol 325mg Tab) 650 mg PO Q6H PRN PRN Reason: Fever >100.4 F Albuterol/Ipratropium (Duoneb 3 Mg/0.5 Mg (3 Ml) Ud) 3 ml INH RQ4 [facility] Last Admin: 02/20/17 11:25 Dose: 3 ml Albuterol/Ipratropium (Duoneb 3 Mg/0.5 Mg (3 Ml) Ud) 3 ml INH RQ4 PRN PRN Reason: Shortness of Breath Last Admin: 02/13/17 10:05 Dose: 3 ml Bisacodyl (Dulcolax) 10 mg NM DAILY PRN PRN Reason: Constipation Last Admin: 02/12/17 20:13 Dose: 10 mg Docusate Sodium (Colace) 100 mg PO BID PRN PRN Reason: Constipation Last Admin: 02/08/17 20:35 Dose: 100 mg Folic Acid (Folic Acid) 1 mg PO DAILY [facility] Last Admin: 02/20/17 08:59 Dose: 1 mg Azithromycin 500 mg/ Sodium (Chloride) 250 mls @ 250 mls/hr IVPB DAILY [facility] PRN Reason: Protocol Last Admin: 02/20/17 11:16 Dose: 250 mls/hr Vancomycin HCl 1 gm/ Sodium (Chloride) 250 mls @ 166.667 mls/hr IVPB DAILY [facility] PRN Reason: Protocol Last Admin: 02/20/17 11:16 Dose: 166.667 mls/hr Piperacillin Sod/Tazobactam (Sod 3.375 gm/ Sodium Chloride) 100 mls @ 100 mls/ hr IVPB Q6 [facility] PRN Reason: Protocol Last Admin: 02/20/17 11:17 Dose: 100 mls/hr Fluconazole (Diflucan Iv 100 Mg/50 Ml Ns) 50 mls @ 50 mls/hr IVPB DAILY [facility] PRN Reason: Protocol Last Admin: 02/20/17 11:15 Dose: 50 mls/hr Iron Sucrose 100 mg/ Sodium (Chloride) 105 mls @ 105 mls/hr IVPB DAILY [facility] Last Admin: 02/20/17 11:16 Dose: 105 mls/hr Lactulose (Enulose) 20 gm PO BID [facility] Last Admin: 02/20/17 08:59 Dose: 20 gm Lidocaine (Lidoderm) 1 ea TD DAILY [facility] Last Admin: 02/20/17 08:58 Dose: 1 ea Magnesium Hydroxide (Milk Of Magnesia) 30 ml PO DAILY PRN PRN Reason: Constipation Last Admin: 02/12/17 20:13 Dose: 30 ml Multivitamins/Minerals (Therapeutic-M Tab) 1 tab PO DAILY [facility] Last Admin: 02/20/17 08:59 Dose: 1 tab Nicotine (Nicoderm Cq) 1 patch TD DAILY [facility] Last Admin: 02/20/17 08:59 Dose: 1 patch Nystatin (Mycostatin Cream) 1 applic TOP TID [facility] Last Admin: 02/20/17 08:59 Dose: 1 applic Nystatin (Nystop Topical Powder) 1 applic TOP QID [facility] Last Admin: 02/20/17 08:58 Dose: 1 applic Ondansetron HCl (Zofran Inj) 4 mg IVP Q6H PRN PRN Reason: Nausea/Vomiting Fluticasone/Salmeterol (Advair Diskus 250/50) 1 puff IH Q12 [facility] Last Admin: 02/20/17 08:57 Dose: 1 puff Sodium Chloride ([place] Nasal [place]) 2 sprays GINGER Q4 [facility] Last Admin: 02/20/17 08:57 Dose: 2 spray Thiamine HCl (Vitamin B1 Tab) 100 mg PO DAILY [facility] Last Admin: 02/20/17 08:59 Dose: 100 mg - Labs Labs: 02/19/17 05:45 02/20/17 06:30 PT 21.9 Seconds (9.8-13.1) H 02/18/17 09:00 INR 2.0 (0.9-1.2) H 02/18/17 09:00 APTT 19.7 Seconds (25.6-37.1) L 02/09/17 11:55 - Constitutional Appears: Non-toxic, Chronically Ill - Head Exam Head Exam: NORMOCEPHALIC - Eye Exam Eye Exam: absent: Scleral icterus - ENT Exam ENT Exam: Mucous Membranes Dry - Neck Exam Neck Exam: absent: Lymphadenopathy - Respiratory Exam Respiratory Exam: Decreased Breath Sounds - Cardiovascular Exam Cardiovascular Exam: REGULAR RHYTHM - GI/Abdominal Exam GI & Abdominal Exam: Distended Assessment and Plan (1) Bilateral pneumonia Status: Acute (2) COPD exacerbation Status: Acute (3) Respiratory distress Status: Acute (4) Severe sepsis Status: Acute (5) Alcohol abuse Status: Acute
--- NOTE | 2017-02-20 13:16 | CP.PCM.PN ---
Subjective - Date & Time of Evaluation Date of Evaluation: 02/20/17 Time of Evaluation: 11:15 - Subjective Subjective: No fever mental status better alert, oriented x 2 follows commands answers questions appropriately no SOB no CP no abd pain Objective - Vital Signs/Intake and Output Vital Signs (last 24 hours): Temp Pulse Resp BP Pulse Ox 97.3 F L 79 20 108/71 99 02/20/17 12:00 02/20/17 12:00 02/20/17 12:00 02/20/17 12:00 02/20/17 12:00 Intake and Output: 02/20/17 02/20/17 06:59 18:59 Intake Total 1910 Output Total 850 Balance 1060 - Medications Medications: Current Medications Acetaminophen (Tylenol 325mg Tab) 650 mg PO Q6H PRN PRN Reason: Pain, Mild (1-3) Acetaminophen (Tylenol 325mg Tab) 650 mg PO Q6H PRN PRN Reason: Fever >100.4 F Albuterol/Ipratropium (Duoneb 3 Mg/0.5 Mg (3 Ml) Ud) 3 ml INH RQ4 [facility] Last Admin: 02/20/17 11:25 Dose: 3 ml Albuterol/Ipratropium (Duoneb 3 Mg/0.5 Mg (3 Ml) Ud) 3 ml INH RQ4 PRN PRN Reason: Shortness of Breath Last Admin: 02/13/17 10:05 Dose: 3 ml Bisacodyl (Dulcolax) 10 mg [place] DAILY PRN PRN Reason: Constipation Last Admin: 02/12/17 20:13 Dose: 10 mg Docusate Sodium (Colace) 100 mg PO BID PRN PRN Reason: Constipation Last Admin: 02/08/17 20:35 Dose: 100 mg Folic Acid (Folic Acid) 1 mg PO DAILY [facility] Last Admin: 02/20/17 08:59 Dose: 1 mg Azithromycin 500 mg/ Sodium (Chloride) 250 mls @ 250 mls/hr IVPB DAILY [facility] PRN Reason: Protocol Last Admin: 02/20/17 11:16 Dose: 250 mls/hr Vancomycin HCl 1 gm/ Sodium (Chloride) 250 mls @ 166.667 mls/hr IVPB DAILY [facility] PRN Reason: Protocol Last Admin: 02/20/17 11:16 Dose: 166.667 mls/hr Piperacillin Sod/Tazobactam (Sod 3.375 gm/ Sodium Chloride) 100 mls @ 100 mls/ hr IVPB Q6 [facility] PRN Reason: Protocol Last Admin: 02/20/17 11:17 Dose: 100 mls/hr Fluconazole (Diflucan Iv 100 Mg/50 Ml Ns) 50 mls @ 50 mls/hr IVPB DAILY [facility] PRN Reason: Protocol Last Admin: 02/20/17 11:15 Dose: 50 mls/hr Iron Sucrose 100 mg/ Sodium (Chloride) 105 mls @ 105 mls/hr IVPB DAILY [facility] Last Admin: 02/20/17 11:16 Dose: 105 mls/hr Lactulose (Enulose) 20 gm PO BID [facility] Last Admin: 02/20/17 08:59 Dose: 20 gm Lidocaine (Lidoderm) 1 ea TD DAILY [facility] Last Admin: 02/20/17 08:58 Dose: 1 ea Magnesium Hydroxide (Milk Of Magnesia) 30 ml PO DAILY PRN PRN Reason: Constipation Last Admin: 02/12/17 20:13 Dose: 30 ml Multivitamins/Minerals (Therapeutic-M Tab) 1 tab PO DAILY [facility] Last Admin: 02/20/17 08:59 Dose: 1 tab Nicotine (Nicoderm Cq) 1 patch TD DAILY [facility] Last Admin: 02/20/17 08:59 Dose: 1 patch Nystatin (Mycostatin Cream) 1 applic TOP TID [facility] Last Admin: 02/20/17 08:59 Dose: 1 applic Nystatin (Nystop Topical Powder) 1 applic TOP QID [facility] Last Admin: 02/20/17 08:58 Dose: 1 applic Ondansetron HCl (Zofran Inj) 4 mg IVP Q6H PRN PRN Reason: Nausea/Vomiting Fluticasone/Salmeterol (Advair Diskus 250/50) 1 puff IH Q12 [facility] Last Admin: 02/20/17 08:57 Dose: 1 puff Sodium Chloride ([place] Nasal [place]) 2 sprays GINGER Q4 [facility] Last Admin: 02/20/17 08:57 Dose: 2 spray Thiamine HCl (Vitamin B1 Tab) 100 mg PO DAILY [facility] Last Admin: 02/20/17 08:59 Dose: 100 mg - Labs Labs: 02/19/17 05:45 02/20/17 06:30 PT 21.9 Seconds (9.8-13.1) H 02/18/17 09:00 INR 2.0 (0.9-1.2) H 02/18/17 09:00 APTT 19.7 Seconds (25.6-37.1) L 02/09/17 11:55 Assessment and Plan - Assessment and Plan (Free Text) Assessment: - Constitutional Appears: Chronically Ill, more alert today - Head Exam Head Exam: NORMOCEPHALIC - Eye Exam Eye Exam: EOMI Pupil Exam: NORMAL ACCOMMODATION - ENT Exam ENT Exam: Mucous Membranes Dry, Normal External Ear Exam - Neck Exam Neck Exam: Full ROM. absent: Meningismus - Respiratory Exam Respiratory Exam: + Rales, Rhonchi, mild Wheezes on NC - Cardiovascular Exam Cardiovascular Exam: REGULAR RHYTHM, +S1, +S2 - GI/Abdominal Exam GI & Abdominal Exam: Soft, Normal Bowel Sounds. absent: Tenderness - Extremities Exam Extremities Exam: Normal Capillary Refill, Pedal Edema. absent: Calf Tenderness - Back Exam Back Exam: absent: CVA tenderness (L), CVA tenderness (R) - Neurological Exam Neurological Exam: Awake Additional comments: answers questions appropriately moves all extremities- follows simple commands - Psychiatric Exam Psychiatric exam: irritable - Skin Skin Exam: Dry, Normal Color, Warm Assessment and Plan 51 y/o female with COPD , fatty liver, Chronic ETOH abuse ( daily 8 cups of 8 ounce vodka ) , smoker , chronic lower back pain brought to ER for evaluation by EMS for facial and lower extremity swelling , SOB and lower back pain. As per patient she has some baseline SOB with ambulation and has chronic lower back pain . Pt was having some lower back pain for which she took some Motrin and Advil PM. and when she woke up she noticed her face and eyes to be swollen and her lower extremities were swollen as well. She could not get out of bed and was having significant back pain . In the ED , was found to be in respiratory distress,with dyspnea RR 35 O2sat 94 %, slightly hypotensive BP 96/65 tachycardic HR 122. She was given 2 Duonebs in the field, 125 mg IV solumedrol in ER , started on IVF and placed on High Flow O2 ,20 LPM FIO2 60 % Her ABG showed PO2 70 PCO2 35 pH 7.38 . CXR showed bilateral infiltrates worse on the right WBC found to be elevated 16.8 Hgb 10 BUN/Cr 20/1.4 rigoberto 6.6 ASt / ALT 150/26 lactic acid 2.6 ETOH levels 73 Physical exam was significant for tremors , increased work of breathing , periorbital, facial and lower extremity edema, her breath smelled of alcohol. She was admitted in ICU for close monitoring and treatment, she improved and was transferred to telemetry but became very agitated , restless , confused , tachypneic and tachycardic and so was transferred back to ICU for close monitoring. She was placed on High Flow Oxygen and started on Precedex drip and later switched to librium and Ativan PRN. She became very lethargic so all sedation medications were stopped including pain medications. CT L-S spine showed DJD and some compression fractures that could be reason for her back pain. Anesthesiology,spine surgeon were consulted . Her confusion improved somewhat and was switched to NC maintaining her O2 sat and transferred to telemetry. MRI of thoracic and Lumbar spine: Compression fractures , chronic Attempted to get in touch with her PMD - DR Sidney Suarez - on vacation, will be back Feb 21 1. Severe Sepsis- resolving Most likely secondary to multifocal pneumonia patient was hypotensive,tachycardic,hypoxemic with WBC 16.8 and CXR showed bilateral infiltrates, lactate 2.6 on admission Sputum cx positive for yeast CT chest showed persistent dense bilateral lower lobe infiltrates. Restarted Vanco , Zosyn and Zithromax IV ID following 2.Acute hypoxemic and hypercarbic respiratory failure Most likely secondary to multi lobar Pneumonia and COPD exacerbation PE ruled out - neg CTA and V/Q scan was placed on High Flow Oxygen initially , and at present on 2 liters O2 via NC maintaining her airway and saturating 95-98 % discontinued Opiates , sedatives and anti Psychotics as these make pt very sedated Off PreCedex drip since 02/04 Continue Duonebs Tapered off steroids , on Advair INH Pulmonary and ID consulted Dr Mojica re consulted to re-evaluate pt Restarted IV Vanco Zosyn and Zithromax since CT chest showed persistent consolidations ENT consulted and case discussed with Dr. Hernandez . Larynx appears normal , vocal cords with no mass 3. Multifocal Pneumonia ID and pulmonary consulted Received Vanco, Zosyn, Azithro and Diflucan for 2 weeks , so antibiotics were discontinued CT chest showed persistent bilateral lower lobe dense consolidations - Resumed Iv antibiotics patient is a long time smoker so will need to follow up resolution of infiltrates to rule out any underlying malignancy 4. Facial and lower extremity edema prob 2 to cirrhosis unclear etiology of facial edema , resolved TSH : normal Given Solumedrol 125mg , Benadry and Pepcid LE venous doppler negative for DVT Echo showed normal LVF EF 65 -70 % given lasix 5. ETOH abuse / Delirium Tremens/alcoholic encephalopathy was started on Precedex drip in ICU , was agitated /restless and has been off drip since 02/04 tapered off Librium continue Thiamine, Folic acid Seizure precautions/ withdrawal precautions psych consulted- rec Risperdal or Haldol for agitation however pt gets very sedated on theses meds when given.Discontinued all narcotics and psych meds Ammonia level76 today. Started lactulose 20 gm PO BID . Will give 200 g [place] stat . GI consulted MELD score 15 6. AMS sec to Encephalopathy off all sedatives and opiates Ammonia levels elevated - Started lactulose B12 level normal TSH normal CT of head x 2 : neg MRI brain showed mild generalized atrophy EEG : Cerebral slowing Neurology consulted - Dr Mora Gi consulted 7. SUNDAR improved no prior records and unknown baseline renal function improved 8. COPD exacerbation-- improved continue Genny pulmonary consulted counseled on smoking tapered off IV solumedrol 9. Alcohol Liver Dis/ Cirrhosis Bill 6.6 AST 150 on admission. Bili trending down to 2.1, afebrile CT chest showed hepatomegaly , fatty infiltration , some ascitic fluid and umbilical vein recannulization significant for portal hypertension \ US showed: Hepatomegaly with steatosis.Trace perihepatic ascites.Nonspecific gallbladder wall thickening. Gallbladder wall thickening is a nonspecific finding which can be seen with ascites, hepatitis, cholecystitis,CHF or hypoproteinemic states. patient has no abdominal pain , no fever , no signs of cholecystitis Continue monitoring GI consulted MELD score 15 10. Chronic Lower back pain likely sec to Compression Fractures Ct chest also showed mild chronic compression fracture in mid thoracic spine Multiple attempts made to have pt go for CT of [place] and T spine however pt could not tolerate and could not remain still for the procedure - finally went - CT of the spine showed Acute Thoracic and Lumbar spine compression fractures Neurosurgery consulted- no NSS intervention , rec PT, Pain mgt Pain management consulted and started on Morphine and lidoderm patch . D/c morphine since patient is very somnolent and lethargic MRI spine showed no acute fracture or significant disc protrusion With urinary retention- Gaffney in place draining well now off all opiates, sedatives 11.Anemia unclear etiology iron levels dropping. probably secondary to poor po intake Will start Venofer B12 levels normal cont Thiamine 12. Thrombocytopenia sec to alcohol, liver dis and meds HIT : negative d/c Lovenox plt 95 K 13.Urinary retention unclear etiology most likely secondary to immobility, pain medication Straight cath placed x 2 with 1000 ml Gaffney cath placed will d/c Gaffney today 14. Generalized maculopapular rash unclear etiology possible candidiasis cont Diflucan IV Nystatin topical 15. DVT prophylaxis GI prophylaxis d/c lovenox due to thrombocytopenia and coagulopathy Pepcid
[2017-02-20 19:44] LABS: LKM-1 Ab (IgG) <=20.0 U (<=20.0)
[2017-02-20 23:47] LABS: SPECIMEN SOURCE Serum
[2017-02-21] MEDS: Nasal Spray(Ocean spray) NAS SCH ×6 (01:55→21:45)
[2017-02-21] MEDS: Piperacillin/Tazobact 3.375 GM in Sodium Chloride 0.9% 100 ML IVPB SCH ×4 (04:20→21:46)
[2017-02-21] MEDS: Albuterol-Ipratrop 3 mg / 0.5 (3 ml) UD INH SCH ×5 (04:55→19:05)
[2017-02-21 05:53] LABS: HEMATOCRIT 25.6 % (34.0-47.0); MEAN CELL VOLUME 106.2 fl (81.0-99.0); MEAN CORPUSCULAR HEMOGLOBIN 34.1 pg (27.0-31.0); MEAN CORPUSCULAR HGB CONC 32.1 g/dL (33.0-37.0); WHITE BLOOD COUNT 5.7 K/uL (4.8-10.8)
[2017-02-21 06:05] LABS: BLOOD UREA NITROGEN 10 mg/dl (7-17); CALCIUM 8.8 mg/dL (8.4-10.2); CARBON DIOXIDE 23 mmol/L (22-30); CHLORIDE 111 mmol/L (98-107); GFR AFRICAN-AMERICAN > 60; GLUCOSE,RANDOM 76 mg/dL (65-105); POTASSIUM 3.4 MMOL/L (3.6-5.0); SODIUM 142 mmol/l (132-148)
[2017-02-21 06:57] LABS: BILIRUBIN,TOTAL 1.9 mg/dl (0.2-1.3); TOTAL PROTEIN 6.5 G/DL (6.3-8.2)
--- NOTE | 2017-02-21 06:57 | CP.PCM.PN ---
<Yelena Escobedo - Last Filed: 02/21/17 15:58> Subjective - Date & Time of Evaluation Date of Evaluation: 02/21/17 Time of Evaluation: 06:54 - Subjective Subjective: Gastroenterology Fellow/PGY5 Progress Note Patient oriented to self and time. Denies abdominal pain. Tolerating diet. Two bowel movements yesterday. 12-point review of systems negative except for as above. Objective - Vital Signs/Intake and Output Vital Signs (last 24 hours): Temp Pulse Resp BP Pulse Ox 98.5 F 99 H 18 110/72 99 02/21/17 05:09 02/21/17 05:09 02/21/17 05:09 02/21/17 05:09 02/21/17 05:09 Intake and Output: 02/20/17 02/21/17 18:59 06:59 Intake Total 1450 200 Output Total 401 1 Balance 1049 199 - Medications Medications: Current Medications Acetaminophen (Tylenol 325mg Tab) 650 mg PO Q6H PRN PRN Reason: Pain, Mild (1-3) Acetaminophen (Tylenol 325mg Tab) 650 mg PO Q6H PRN PRN Reason: Fever >100.4 F Albuterol/Ipratropium (Duoneb 3 Mg/0.5 Mg (3 Ml) Ud) 3 ml INH RQ4 [facility] Last Admin: 02/21/17 04:55 Dose: 3 ml Albuterol/Ipratropium (Duoneb 3 Mg/0.5 Mg (3 Ml) Ud) 3 ml INH RQ4 PRN PRN Reason: Shortness of Breath Last Admin: 02/13/17 10:05 Dose: 3 ml Bisacodyl (Dulcolax) 10 mg [place] DAILY PRN PRN Reason: Constipation Last Admin: 02/12/17 20:13 Dose: 10 mg Docusate Sodium (Colace) 100 mg PO BID PRN PRN Reason: Constipation Last Admin: 02/08/17 20:35 Dose: 100 mg Folic Acid (Folic Acid) 1 mg PO DAILY [facility] Last Admin: 02/20/17 08:59 Dose: 1 mg Vancomycin HCl 1 gm/ Sodium (Chloride) 250 mls @ 166.667 mls/hr IVPB DAILY [facility] PRN Reason: Protocol Last Admin: 02/20/17 11:16 Dose: 166.667 mls/hr Piperacillin Sod/Tazobactam (Sod 3.375 gm/ Sodium Chloride) 100 mls @ 100 mls/ hr IVPB Q6 [facility] PRN Reason: Protocol Last Admin: 02/21/17 04:20 Dose: 100 mls/hr Fluconazole (Diflucan Iv 100 Mg/50 Ml Ns) 50 mls @ 50 mls/hr IVPB DAILY [facility] PRN Reason: Protocol Last Admin: 02/20/17 11:15 Dose: 50 mls/hr Iron Sucrose 100 mg/ Sodium (Chloride) 105 mls @ 105 mls/hr IVPB DAILY [facility] Last Admin: 02/20/17 11:16 Dose: 105 mls/hr Lactulose (Enulose) 20 gm PO BID [facility] Last Admin: 02/20/17 16:25 Dose: 20 gm Lidocaine (Lidoderm) 1 ea TD DAILY [facility] Last Admin: 02/20/17 08:58 Dose: 1 ea Magnesium Hydroxide (Milk Of Magnesia) 30 ml PO DAILY PRN PRN Reason: Constipation Last Admin: 02/12/17 20:13 Dose: 30 ml Multivitamins/Minerals (Therapeutic-M Tab) 1 tab PO DAILY [facility] Last Admin: 02/20/17 08:59 Dose: 1 tab Nicotine (Nicoderm Cq) 1 patch TD DAILY [facility] Last Admin: 02/20/17 08:59 Dose: 1 patch Nystatin (Mycostatin Cream) 1 applic TOP TID [facility] Last Admin: 02/20/17 16:30 Dose: 1 applic Nystatin (Nystop Topical Powder) 1 applic TOP QID [facility] Last Admin: 02/20/17 21:23 Dose: 1 applic Ondansetron HCl (Zofran Inj) 4 mg IVP Q6H PRN PRN Reason: Nausea/Vomiting Fluticasone/Salmeterol (Advair Diskus 250/50) 1 puff IH Q12 [facility] Last Admin: 02/20/17 21:23 Dose: 1 puff Sodium Chloride ([place] Nasal [place]) 2 sprays GINGER Q4 [facility] Last Admin: 02/21/17 04:21 Dose: 2 spray Thiamine HCl (Vitamin B1 Tab) 100 mg PO DAILY [facility] Last Admin: 02/20/17 08:59 Dose: 100 mg - Labs Labs: 02/21/17 04:20 02/21/17 04:20 PT 21.9 Seconds (9.8-13.1) H 12/15/17 09:00 INR 2.0 (0.9-1.2) H 02/18/17 09:00 APTT 19.7 Seconds (25.6-37.1) L 02/09/17 11:55 - Constitutional Appears: Non-toxic, No Acute Distress - Head Exam Head Exam: ATRAUMATIC, NORMOCEPHALIC - Eye Exam Eye Exam: EOMI, PERRL Pupil Exam: PERRL. absent: Miosis, Mydriatic - ENT Exam ENT Exam: Mucous Membranes Moist, Normal Oropharynx - Neck Exam Neck Exam: Full ROM, Normal Inspection - Respiratory Exam Respiratory Exam: Clear to Ausculation Bilateral. absent: Rales, Rhonchi, Wheezes - Cardiovascular Exam Cardiovascular Exam: RRR, +S1, +S2. absent: Gallop, Rubs - GI/Abdominal Exam GI & Abdominal Exam: Soft, Normal Bowel Sounds. absent: Distended, Firm, Guarding, Rigid, Tenderness, Organomegaly, Rebound - Extremities Exam Extremities Exam: Normal Inspection. absent: Pedal Edema - Neurological Exam Neurological Exam: Alert, Awake - Psychiatric Exam Psychiatric exam: Homicidal Ideation, Normal Affect, Normal Mood - Skin Skin Exam: Dry, Rash, Warm Assessment and Plan - Assessment and Plan (Free Text) Assessment: 51 year old female with history of COPD and Alcohol abuse presenting with shortness of breath and leg swelling. Active treatment of multifocal community acquired pneumonia and COPD exacerbation with course complicated by confusion in setting of decompensated alcoholic cirrhosis 2/2 hepatic encephalopathy. Plan: >MELD 18 >continue Lactulose 20g BID, titrate 2-3 BMs/day >mentation improving >tolerating low salt diet >ID managing: vancomycin, zosyn, azithromycin, Diflucan >will require continuity of care on discharge for medication compliance and ongoing management of cirrhosis <Andrés Gonzales MD - Last Filed: 02/21/17 17:41> Objective - Vital Signs/Intake and Output Vital Signs (last 24 hours): Temp Pulse Resp BP Pulse Ox 99.0 F 89 20 103/61 99 02/21/17 16:06 02/21/17 16:06 02/21/17 16:06 02/21/17 16:06 02/21/17 16:06 Intake and Output: 02/21/17 02/21/17 06:59 18:59 Intake Total 200 Output Total 1 Balance 199 - Medications Medications: Current Medications Acetaminophen (Tylenol 325mg Tab) 650 mg PO Q6H PRN PRN Reason: Pain, Mild (1-3) Acetaminophen (Tylenol 325mg Tab) 650 mg PO Q6H PRN PRN Reason: Fever >100.4 F Albuterol/Ipratropium (Duoneb 3 Mg/0.5 Mg (3 Ml) Ud) 3 ml INH RQ4 [facility] Last Admin: 02/21/17 15:38 Dose: 3 ml Albuterol/Ipratropium (Duoneb 3 Mg/0.5 Mg (3 Ml) Ud) 3 ml INH RQ4 PRN PRN Reason: Shortness of Breath Last Admin: 02/13/17 10:05 Dose: 3 ml Bisacodyl (Dulcolax) 10 mg [place] DAILY PRN PRN Reason: Constipation Last Admin: 02/12/17 20:13 Dose: 10 mg Docusate Sodium (Colace) 100 mg PO BID PRN PRN Reason: Constipation Last Admin: 02/08/17 20:35 Dose: 100 mg Folic Acid (Folic Acid) 1 mg PO DAILY [facility] Last Admin: 02/21/17 10:59 Dose: 1 mg Vancomycin HCl 1 gm/ Sodium (Chloride) 250 mls @ 166.667 mls/hr IVPB DAILY [facility] PRN Reason: Protocol Last Admin: 02/21/17 13:13 Dose: 166.667 mls/hr Piperacillin Sod/Tazobactam (Sod 3.375 gm/ Sodium Chloride) 100 mls @ 100 mls/ hr IVPB Q6 [facility] PRN Reason: Protocol Last Admin: 02/21/17 10:13 Dose: 100 mls/hr Fluconazole (Diflucan Iv 100 Mg/50 Ml Ns) 50 mls @ 50 mls/hr IVPB DAILY [facility] PRN Reason: Protocol Last Admin: 02/21/17 10:50 Dose: 50 mls/hr Lactulose (Enulose) 20 gm PO TID [facility] Last Admin: 02/21/17 13:12 Dose: 20 gm Lidocaine (Lidoderm) 1 ea TD DAILY [facility] Last Admin: 02/21/17 11:01 Dose: 1 ea Magnesium Hydroxide (Milk Of Magnesia) 30 ml PO DAILY PRN PRN Reason: Constipation Last Admin: 02/12/17 20:13 Dose: 30 ml Multivitamins/Minerals (Therapeutic-M Tab) 1 tab PO DAILY [facility] Last Admin: 02/21/17 10:59 Dose: 1 tab Nicotine (Nicoderm Cq) 1 patch TD DAILY [facility] Last Admin: 02/21/17 11:01 Dose: 1 patch Nystatin (Mycostatin Cream) 1 applic TOP TID [facility] Last Admin: 02/21/17 13:14 Dose: 1 applic Nystatin (Nystop Topical Powder) 1 applic TOP QID [facility] Last Admin: 02/21/17 13:14 Dose: 1 applic Ondansetron HCl (Zofran Inj) 4 mg IVP Q6H PRN PRN Reason: Nausea/Vomiting Fluticasone/Salmeterol (Advair Diskus 250/50) 1 puff IH Q12 [facility] Last Admin: 02/21/17 10:58 Dose: 1 puff Sodium Chloride ([place] Nasal [place]) 2 sprays GINGER Q4 [facility] Last Admin: 02/21/17 13:15 Dose: 2 spray Thiamine HCl (Vitamin B1 Tab) 100 mg PO DAILY [facility] Last Admin: 02/21/17 11:00 Dose: 100 mg - Labs Labs: 02/21/17 04:20 02/21/17 04:20 PT 20.3 Seconds (9.8-13.1) H 02/21/17 06:40 INR 1.8 (0.9-1.2) H 02/21/17 06:40 APTT 19.7 Seconds (25.6-37.1) L 02/09/17 11:55 Attending/Attestation - Attestation I have personally seen and examined this patient.: Yes I have fully participated in the care of the patient.: Yes I have reviewed all pertinent clinical information, including history, physical exam and plan: Yes Notes (Text): 02/21/17 17:40 Patient seen earlier today. This is a 51 year old female with h/o COPD, ETOH abuse admitted with COPD exacerbation, pneumonia, found to have alcoholic cirrhosis and hepatic encephalopathy now resolving. Active Rx for multi focal PNA. Continue lactulose to 2 BM/day. Low salt diet. Continue antibiotics as per primary team. Needs outpatient EGD/ colonsocopy. Thank you for letting us participate in the care of your patient
[2017-02-21 07:02] LABS: ALB/GLOB RATIO 0.7 (1.0-2.1)
[2017-02-21] MEDS ORDERED: Potassium Chloride 20 mEq ER Tab PO ONE (09:21)
[2017-02-21 10:24] LABS: ABG ALLEN TEST YES; ARTERIAL BLOOD GAS HCO3 22.8 mmol/L (21-28); ARTERIAL BLOOD GAS PH 7.35 (7.35-7.45); ARTERIAL BLOOD GAS PO2 90 mm/Hg (80-100); ARTERIAL BLOOD HGB O2 SAT 96.6 % (95.0-98.0); CARBOXYHEMOGLOBIN 2.7 % (0.5-1.5); HHB -0.4 % (0.0-5.0); METHEMOGLOBIN 1.1 % (0.0-3.0)
[2017-02-21] MEDS: Fluconazole IV 100mg/50 ml NS 50 ML IVPB SCH (10:50)
[2017-02-21] MEDS: Fluticasone-Salmeterol 250-50mcg Diskus IH SCH ×2 (10:58→21:44)
[2017-02-21] MEDS: Multivitamin With Minerals Tab PO SCH (10:59)
[2017-02-21] MEDS: Lidocaine 5% Patch TD SCH (11:01)
--- NOTE | 2017-02-21 11:46 | CP.PCM.PN ---
Subjective - Date & Time of Evaluation Date of Evaluation: 02/21/17 Time of Evaluation: 10:00 - Subjective Subjective: No fever voided after Gaffney cath removed sl lethargic initially this am however now awake , oriented , answers questions appropriately denies CP no SOB no abd pain had 1 BM yesterday- Lactulose dose increased to TID Objective - Vital Signs/Intake and Output Vital Signs (last 24 hours): Temp Pulse Resp BP Pulse Ox 98.4 F 92 H 18 100/58 L 97 02/21/17 08:36 02/21/17 08:36 02/21/17 08:36 02/21/17 08:36 02/21/17 08:36 Intake and Output: 02/21/17 02/21/17 06:59 18:59 Intake Total 200 Output Total 1 Balance 199 - Medications Medications: Current Medications Acetaminophen (Tylenol 325mg Tab) 650 mg PO Q6H PRN PRN Reason: Pain, Mild (1-3) Acetaminophen (Tylenol 325mg Tab) 650 mg PO Q6H PRN PRN Reason: Fever >100.4 F Albuterol/Ipratropium (Duoneb 3 Mg/0.5 Mg (3 Ml) Ud) 3 ml INH RQ4 [facility] Last Admin: 02/21/17 07:31 Dose: 3 ml Albuterol/Ipratropium (Duoneb 3 Mg/0.5 Mg (3 Ml) Ud) 3 ml INH RQ4 PRN PRN Reason: Shortness of Breath Last Admin: 02/13/17 10:05 Dose: 3 ml Bisacodyl (Dulcolax) 10 mg KS DAILY PRN PRN Reason: Constipation Last Admin: 02/12/17 20:13 Dose: 10 mg Docusate Sodium (Colace) 100 mg PO BID PRN PRN Reason: Constipation Last Admin: 02/08/17 20:35 Dose: 100 mg Folic Acid (Folic Acid) 1 mg PO DAILY [facility] Last Admin: 02/21/17 10:59 Dose: 1 mg Vancomycin HCl 1 gm/ Sodium (Chloride) 250 mls @ 166.667 mls/hr IVPB DAILY [facility] PRN Reason: Protocol Last Admin: 02/20/17 11:16 Dose: 166.667 mls/hr Piperacillin Sod/Tazobactam (Sod 3.375 gm/ Sodium Chloride) 100 mls @ 100 mls/ hr IVPB Q6 [facility] PRN Reason: Protocol Last Admin: 02/21/17 04:20 Dose: 100 mls/hr Fluconazole (Diflucan Iv 100 Mg/50 Ml Ns) 50 mls @ 50 mls/hr IVPB DAILY [facility] PRN Reason: Protocol Last Admin: 02/21/17 10:50 Dose: 50 mls/hr Iron Sucrose 100 mg/ Sodium (Chloride) 105 mls @ 105 mls/hr IVPB DAILY [facility] Last Admin: 02/21/17 10:52 Dose: 105 mls/hr Lactulose (Enulose) 20 gm PO TID [facility] Lidocaine (Lidoderm) 1 ea TD DAILY [facility] Last Admin: 02/21/17 11:01 Dose: 1 ea Magnesium Hydroxide (Milk Of Magnesia) 30 ml PO DAILY PRN PRN Reason: Constipation Last Admin: 02/12/17 20:13 Dose: 30 ml Multivitamins/Minerals (Therapeutic-M Tab) 1 tab PO DAILY [facility] Last Admin: 02/21/17 10:59 Dose: 1 tab Nicotine (Nicoderm Cq) 1 patch TD DAILY [facility] Last Admin: 02/21/17 11:01 Dose: 1 patch Nystatin (Mycostatin Cream) 1 applic TOP TID [facility] Last Admin: 02/21/17 11:01 Dose: 1 applic Nystatin (Nystop Topical Powder) 1 applic TOP QID [facility] Last Admin: 02/21/17 11:00 Dose: 1 applic Ondansetron HCl (Zofran Inj) 4 mg IVP Q6H PRN PRN Reason: Nausea/Vomiting Fluticasone/Salmeterol (Advair Diskus 250/50) 1 puff IH Q12 [facility] Last Admin: 02/21/17 10:58 Dose: 1 puff Sodium Chloride ([place] Nasal [place]) 2 sprays GINGER Q4 [facility] Last Admin: 02/21/17 10:53 Dose: 1 spray Thiamine HCl (Vitamin B1 Tab) 100 mg PO DAILY [facility] Last Admin: 02/21/17 11:00 Dose: 100 mg - Labs Labs: 02/21/17 04:20 02/21/17 04:20 PT 20.3 Seconds (9.8-13.1) H 02/21/17 06:40 INR 1.8 (0.9-1.2) H 02/21/17 06:40 APTT 19.7 Seconds (25.6-37.1) L 02/09/17 11:55 Assessment and Plan - Assessment and Plan (Free Text) Assessment: 51 y/o female with COPD , fatty liver, Chronic ETOH abuse ( daily 8 cups of 8 ounce vodka ) , smoker , chronic lower back pain brought to ER for evaluation by EMS for facial and lower extremity swelling , SOB and lower back pain. As per patient she has some baseline SOB with ambulation and has chronic lower back pain . Pt was having some lower back pain for which she took some Motrin and Advil PM. and when she woke up she noticed her face and eyes to be swollen and her lower extremities were swollen as well. She could not get out of bed and was having significant back pain . In the ED , was found to be in respiratory distress,with dyspnea RR 35 O2sat 94 %, slightly hypotensive BP 96/65 tachycardic HR 122. She was given 2 Duonebs in the field, 125 mg IV solumedrol in ER , started on IVF and placed on High Flow O2 ,20 LPM FIO2 60 % Her ABG showed PO2 70 PCO2 35 pH 7.38 . CXR showed bilateral infiltrates worse on the right WBC found to be elevated 16.8 Hgb 10 BUN/Cr 20/1.4 rigoberto 6.6 ASt / ALT 150/26 lactic acid 2.6 ETOH levels 73 Physical exam was significant for tremors , increased work of breathing , periorbital, facial and lower extremity edema, her breath smelled of alcohol. She was admitted in ICU for close monitoring and treatment, she improved and was transferred to telemetry but became very agitated , restless , confused , tachypneic and tachycardic and so was transferred back to ICU for close monitoring. She was placed on High Flow Oxygen and started on Precedex drip and later switched to librium and Ativan PRN. She became very lethargic so all sedation medications were stopped including pain medications. CT L-S spine showed DJD and some compression fractures that could be reason for her back pain. Anesthesiology,spine surgeon were consulted . Her confusion improved somewhat and was switched to NC maintaining her O2 sat and transferred to telemetry. MRI of thoracic and Lumbar spine: Compression fractures , chronic Attempted to get in touch with her PMD - DR Sidney Suarez - on vacation, will be back after Feb 21 1. Severe Sepsis- resolving Most likely secondary to multifocal pneumonia patient was hypotensive,tachycardic,hypoxemic with WBC 16.8 and CXR showed bilateral infiltrates, lactate 2.6 on admission Sputum cx positive for yeast CT chest showed persistent dense bilateral lower lobe infiltrates. Restarted Vanco , Zosyn and Zithromax IV and diflucan will d/c Azithro ID following 2.Acute hypoxemic and hypercarbic respiratory failure Most likely secondary to multi lobar Pneumonia and COPD exacerbation PE ruled out - neg CTA and V/Q scan was placed on High Flow Oxygen initially , and at present on 2 liters O2 via NC maintaining her airway and saturating 95-98 % discontinued Opiates , sedatives and anti Psychotics as these make pt very sedated Off PreCedex drip since 02/04 Continue Duonebs Tapered off steroids , on Advair INH Pulmonary and ID consulted Dr Mojica reconsulted to re-evaluate pt Restarted IV Vanco Zosyn and Zithromax since CT chest showed persistent consolidations ENT consulted and case discussed with Dr. Hernandez . Larynx appears normal , vocal cords with no mass 3. Multifocal Pneumonia ID and pulmonary consulted Received Vanco, Zosyn, Azithro and Diflucan CT chest showed persistent bilateral lower lobe dense consolidations - Resumed Iv antibiotics patient is a long time smoker so will need to follow up resolution of infiltrates to rule out any underlying malignancy 4. Facial and lower extremity edema prob 2 to cirrhosis unclear etiology of facial edema , resolved TSH : normal Given Solumedrol 125mg , Benadry and Pepcid LE venous doppler negative for DVT Echo showed normal LVF EF 65 -70 % given lasix 5. ETOH abuse / Delirium Tremens was started on Precedex drip in ICU , was agitated /restless and has been off drip since 02/04 tapered off Librium continue Thiamine, Folic acid Seizure precautions/ withdrawal precautions psych consulted- rec Risperdal or Haldol for agitation however pt gets very sedated on theses meds when given.Discontinued all narcotics and psych meds Ammonia level elevated , started Lactulose GI consulted MELD score 15 6. AMS sec to Encephalopathy off all sedatives and opiates Ammonia levels elevated - Started lactulose B12 level normal TSH normal CT of head x 2 : neg MRI brain showed mild generalized atrophy EEG : Cerebral slowing Neurology consulted - Dr Mora Gi consulted 7. SUNDAR improved no prior records and unknown baseline renal function improved 8. COPD exacerbation-- improved continue Genny pulmonary consulted counseled on smoking tapered off IV solumedrol 9. Alcohol Liver Dis/ Cirrhosis Bill 6.6 AST 150 on admission. Bili trending down to 2.1, afebrile CT Liver : showed hepatomegaly , fatty infiltration , some ascitic fluid and umbilical vein recannulization significant for portal hypertension \ US showed: Hepatomegaly with steatosis.Trace perihepatic ascites.Nonspecific gallbladder wall thickening. Gallbladder wall thickening is a nonspecific finding which can be seen with ascites, hepatitis, cholecystitis,CHF or hypoproteinemic states. patient has no abdominal pain , no fever , no signs of cholecystitis Continue monitoring GI consulted MELD score 15 10. Chronic Lower back pain likely sec to Compression Fractures Ct chest also showed mild chronic compression fracture in mid thoracic spine Multiple attempts made to have pt go for CT of [place] and T spine however pt could not tolerate and could not remain still for the procedure - finally went - CT of the spine showed Acute Thoracic and Lumbar spine compression fractures Neurosurgery consulted- no NSS intervention , rec PT, Pain mgt Pain management consulted and started on Morphine and lidoderm patch . D/c morphine since patient is very somnolent and lethargic MRI spine showed no acute fracture or significant disc protrusion With urinary retention- Gaffney in place draining well now off all opiates, sedatives 11.Anemia unclear etiology iron levels dropping. probably secondary to poor po intake started Venofer B12 levels normal cont Thiamine 12. Thrombocytopenia sec to alcohol, liver dis and meds HIT : negative d/c Lovenox 13.Urinary retention unclear etiology most likely secondary to immobility, pain medication Straight cath placed x 2 with 1000 ml Gaffney cath placed d/c Gaffney yesterday , pt voiding freely accdg to RN 14. Generalized maculopapular rash unclear etiology possible candidiasis cont Diflucan IV Nystatin topical 15. DVT prophylaxis GI prophylaxis d/c lovenox due to thrombocytopenia and coagulopathy Pepcid
[2017-02-22] MEDS: Nasal Spray(Ocean spray) NAS SCH ×5 (00:39→17:11)
[2017-02-22] MEDS: Albuterol-Ipratrop 3 mg / 0.5 (3 ml) UD INH SCH ×6 (00:39→19:08)
[2017-02-22] MEDS: Piperacillin/Tazobact 3.375 GM in Sodium Chloride 0.9% 100 ML IVPB SCH ×3 (03:28→17:09)
[2017-02-22 07:55] VITALS: RESP 18
--- NOTE | 2017-02-22 08:23 | PN ---
DATE: 02/21/2017 TIME OF EVALUATION: 5:35 p.m. NEUROLOGICAL PROBLEM: Metabolic encephalopathy. PHYSICAL EXAMINATION: VITAL SIGNS: Blood pressure 103/61, mean arterial pressure of 75, respiratory rate 18, temperature afebrile. The patient was examined in the presence of her sister. The patient is awake and alert, feels comfortable, comfortably lying on her back. She moves all 4 extremities. Good visual contact. Speech is not dysarthric, slurred. The patient seems to be improving compared with the previous exam. Continue hydration, keep the mean arterial pressure around 90 to 100. Correct the electrolytes and appropriate antibiotics for her. The patient's condition has been discussed with her sister. The patient will be followed closely with you. Mil Mora MD
[2017-02-22] MEDS: Lidocaine 5% Patch TD SCH (09:24)
[2017-02-22] MEDS: Fluticasone-Salmeterol 250-50mcg Diskus IH SCH (09:28)
[2017-02-22] MEDS: Multivitamin With Minerals Tab PO SCH (09:29)
[2017-02-22] MEDS: Fluconazole IV 100mg/50 ml NS 50 ML IVPB SCH (09:29)
[2017-02-22] MEDS ORDERED: Pantoprazole 40 mg EC Tab PO SCH (11:15)
--- NOTE | 2017-02-22 16:24 | CP.PCM.DIS ---
Provider - Provider Date of Admission: 01/27/17 14:57 Attending physician: Rossana Arora MD Primary care physician: Dr Sidney Lea Consults: ID : DR Escalera Puln: DR Mojica Neuro: DR Mora Neurosurgery: Dr Ramirez Psych: Dr Yoana Taylor mgt: Dr Dennis ENT : Dr Hernandez GI: Dr Gonzales Time Spent in preparation of Discharge (in minutes): 45 Diagnosis - Discharge Diagnosis (1) Severe sepsis Status: Acute (2) Acute and chronic respiratory failure with hypercapnia Status: Acute (3) Alcohol abuse Status: Acute (4) Bilateral pneumonia Status: Acute (5) COPD exacerbation Status: Acute (6) Cirrhosis Status: Chronic (7) Hepatic encephalopathy Status: Acute (8) Thrombocytopenia Status: Acute (9) Coagulopathy Status: Acute Hospital Course - Lab Results Lab Results: Micro Results 02/17/17 06:40 Blood Blood Culture - Final NO GROWTH AFTER 5 DAYS 02/17/17 06:40 Blood Gram Stain - Final TEST NOT PERFORMED 02/18/17 02:00 Urine,Gaffney Urine Culture - Final Gram Positive Cocci 02/10/17 15:45 Nose MRSA Culture (Admit) - Final MRSA NOT DETECTED 02/02/17 11:24 Naris MRSA Culture (Admit) - Final MRSA NOT DETECTED 01/29/17 17:00 Naris MRSA Culture (Admit) - Final MRSA NOT DETECTED 01/28/17 12:16 Sputum Gram Stain - Final 01/28/17 12:16 Sputum Sputum Culture - Final Yeast Species 01/27/17 05:25 Nose MRSA Culture (Admit) - Final MRSA NOT DETECTED Most Recent Lab Values WBC 5.7 K/uL (4.8-10.8) 02/21/17 04:20 RBC 2.41 Mil/uL (3.80-5.20) L 02/21/17 04:20 Hgb 8.2 g/dL (12.0-16.0) L 02/21/17 04:20 Hct 25.6 % (34.0-47.0) L 02/21/17 04:20 MCV 106.2 fl (81.0-99.0) H D 02/21/17 04:20 MCH 34.1 pg (27.0-31.0) H 02/21/17 04:20 MCHC 32.1 g/dL (33.0-37.0) L 02/21/17 04:20 RDW 17.0 % (11.5-14.5) H 02/21/17 04:20 Plt Count 94 K/uL (130-400) L 02/21/17 04:20 MPV 9.3 fl (7.2-11.7) 02/19/17 05:45 Neut % (Auto) 79.3 % (50.0-75.0) H 02/19/17 05:45 Lymph % (Auto) 14.3 % (20.0-40.0) L 02/19/17 05:45 [place] % (Auto) 4.9 % (0.0-10.0) 02/19/17 05:45 Eos % (Auto) 0.6 % (0.0-4.0) 02/19/17 05:45 Baso % (Auto) 0.9 % (0.0-2.0) 02/19/17 05:45 Neut # 4.9 K/uL (1.8-7.0) 02/19/17 05:45 Lymph # 0.9 K/uL (1.0-4.3) L 02/19/17 05:45 [place] # 0.3 K/uL (0.0-0.8) 02/19/17 05:45 Eos # 0.0 K/uL (0.0-0.7) 02/19/17 05:45 Baso # 0.1 K/uL (0.0-0.2) 02/19/17 05:45 Neutrophils % (Manual) 92 % (42-75) H 02/08/17 04:30 Band Neutrophils % 2 % (0-2) 01/29/17 05:30 Lymphocytes % (Manual) 4 % (20-50) L 02/08/17 04:30 Monocytes % (Manual) 4 % (0-10) 02/08/17 04:30 Smudge Cells Present 02/08/17 04:30 Toxic Granulation Present 01/29/17 05:30 Platelet Estimate Decreased (NORMAL) L 02/08/17 04:30 Plt Clumps, EDTA Present 02/08/17 04:30 Large Platelets Present 01/29/17 05:30 Hypochromasia (manual) Moderate 02/08/17 04:30 Anisocytosis (manual) Slight 02/08/17 04:30 Macrocytosis (manual) Moderate 02/08/17 04:30 Target Cells Slight 02/08/17 04:30 Tear Drop Cells Slight 02/03/17 04:20 Ovalocytes Slight 01/29/17 05:30 ESR 105 mm/hr (0-30) H 02/16/17 04:30 Retic Count 1.0 % (0.5-1.5) 01/28/17 04:25 PT 20.3 Seconds (9.8-13.1) H 02/21/17 06:40 INR 1.8 (0.9-1.2) H 02/21/17 06:40 APTT 19.7 Seconds (25.6-37.1) L 02/09/17 11:55 Puncture Site rr 02/11/17 14:46 pCO2 41 mm/Hg (35-45) 02/21/17 09:20 pO2 90 mm/Hg (80-100) 02/21/17 09:20 HCO3 22.8 mmol/L (21-28) 02/21/17 09:20 ABG pH 7.35 (7.35-7.45) 02/21/17 09:20 ABG Total CO2 23.9 mmol/L (22-28) 02/21/17 09:20 ABG O2 Saturation 100.4 % (95-98) H 02/21/17 09:20 ABG O2 Content 11.0 ML/dL (15-23) L 02/21/17 09:20 ABG Base Excess -2.8 mmol/L (-2.0-3.0) L 02/21/17 09:20 ABG Hemoglobin 8.0 g/dL (11.7-17.4) L 02/21/17 09:20 ABG Carboxyhemoglobin 2.7 % (0.5-1.5) H 02/21/17 09:20 POC ABG HHb (Measured) -0.4 % (0.0-5.0) L 02/21/17 09:20 ABG Methemoglobin 1.1 % (0.0-3.0) 02/21/17 09:20 ABG O2 Capacity 11.0 mL/dL (16-24) L 02/21/17 09:20 Dick Test Yes 02/21/17 09:20 ABG Potassium 4.5 mmol/L (3.6-5.2) 01/27/17 15:45 A-a O2 Difference 87.0 mm/Hg 02/21/17 09:20 Hgb O2 Saturation 96.6 % (95.0-98.0) 02/21/17 09:20 Sodium 137.0 mmol/L (132-148) 01/27/17 15:45 Chloride 106.0 mmol/L (98-107) 01/27/17 15:45 Glucose 126 mg/dL (65-105) H 01/27/17 15:45 Lactate 2.5 mmol/L (0.7-2.1) H 01/27/17 15:45 Liter Flow 25 02/07/17 06:36 Vent Mode 2lnc 02/17/17 05:34 FiO2 32.0 % 02/21/17 09:20 Blood Gas Comments 2l/m nc 02/11/17 14:46 Crit Value Called To Lizette santos rn 02/07/17 06:00 Crit Value Called By 302 02/07/17 06:00 Crit Value Read Back Y 02/07/17 06:00 Blood Gas Notified Time 607 02/07/17 06:00 Sodium 142 mmol/l (132-148) 02/21/17 04:20 Potassium 3.4 MMOL/L (3.6-5.0) L 02/21/17 04:20 Chloride 111 mmol/L (98-107) H 02/21/17 04:20 Carbon Dioxide 23 mmol/L (22-30) 02/21/17 04:20 Anion Gap 11 (10-20) 02/21/17 04:20 BUN 10 mg/dl (7-17) 02/21/17 04:20 Creatinine 0.7 mg/dl (0.7-1.2) 02/21/17 04:20 Est GFR ( Amer) > 60 02/21/17 04:20 Est GFR (Non-Af Amer) > 60 02/21/17 04:20 POC Glucose (mg/dL) 91 mg/dL (65-110) 02/13/17 13:16 Random Glucose 76 mg/dL (65-105) 02/21/17 04:20 Hemoglobin A1c 4.6 % (4.2-6.5) 02/16/17 04:30 Lactic Acid 1.1 MMOL/L (0.7-2.1) 02/06/17 07:00 Calcium 8.8 mg/dL (8.4-10.2) 02/21/17 04:20 Phosphorus 3.8 mg/dl (2.5-4.5) 02/16/17 04:30 Magnesium 1.6 MG/DL (1.6-2.3) 02/16/17 04:30 Iron 21 ug/dL (37-170) L 02/17/17 08:40 TIBC 227 ug/dL (250-450) L 02/17/17 08:40 % Saturation 9 % (20-55) L 02/17/17 08:40 Transferrin 124.20 mg/dL (206-381) L 01/28/17 04:25 Ferritin 268.0 ng/Ml (11.1-264.0) H 01/28/17 04:25 Total Bilirubin 1.9 mg/dl (0.2-1.3) H 02/21/17 06:40 Direct Bilirubin 1.2 mg/ml (0.0-0.4) H 02/21/17 06:40 AST 45 U/L (14-36) H 02/21/17 06:40 ALT 48 U/L (9-52) 02/21/17 06:40 Alkaline Phosphatase 144 U/L (38-126) H 02/21/17 06:40 Ammonia 24 umo/L (11-51) D 02/21/17 11:30 Troponin I 0.0400 ng/mL (0.00-0.120) 01/27/17 13:21 C-React Prot High Sens > 15.00 mg/L (1.00-3.00) H 02/16/17 04:30 NT-Pro-B Natriuret Pep 806 pg/ml (0-900) 01/27/17 13:21 Total Protein 6.5 G/DL (6.3-8.2) 02/21/17 06:40 Albumin 2.7 g/dL (3.5-5.0) L 02/21/17 06:40 Globulin 3.8 gm/dL (2.2-3.9) 02/21/17 06:40 Albumin/Globulin Ratio 0.7 (1.0-2.1) L 02/21/17 06:40 Triglycerides 187 mg/DL (0-149) H 01/27/17 14:39 Cholesterol 174 mg/dL (0-199) 01/27/17 14:39 LDL Cholesterol Direct 88 mg/dL (0-129) 01/27/17 14:39 HDL Cholesterol 16 MG/DL (30-70) L 01/27/17 14:39 Vitamin B12 755 pg/mL (239-931) 01/28/17 04:25 Folate 7.2 ng/mL 01/28/17 04:25 Procalcitonin 0.31 NG/ML (0.19-0.49) 02/17/17 05:00 TSH 3rd Generation 4.46 mIU/ML (0.46-4.68) 02/15/17 21:00 Prolactin 22.9 ng/mL (3.0-18.9) H 02/17/17 20:54 Arterial Blood Potassium 4.5 mmol/L (3.6-5.2) 01/27/17 15:45 Urine Color Yellow (YELLOW) 02/18/17 02:00 Urine Clarity Clear (Clear) 02/18/17 02:00 Urine pH 5.0 (5.0-8.0) 02/18/17 02:00 Ur Specific [place] 1.045 (1.003-1.030) H 02/18/17 02:00 Urine Protein Negative mg/dL (NEGATIVE) 02/18/17 02:00 Urine Glucose (UA) Neg mg/dL (Normal) 02/18/17 02:00 Urine Ketones Negative mg/dL (NEGATIVE) 02/18/17 02:00 Urine Blood Small (NEGATIVE) 02/18/17 02:00 Urine Nitrate Negative (NEGATIVE) 02/18/17 02:00 Urine Bilirubin Negative (NEGATIVE) 02/18/17 02:00 Urine Urobilinogen 2.0 mg/dL (0.2-1.0) H 02/18/17 02:00 Ur Leukocyte Esterase Neg Rj/uL (Negative) 02/18/17 02:00 Urine RBC (Auto) 4 /hpf (0-3) H 02/18/17 02:00 Urine Microscopic WBC 4 /hpf (0-5) 02/18/17 02:00 Ur Squamous Epith Cells < 1 /hpf (0-5) 02/18/17 02:00 Urine Bacteria Rare (<OCC) 02/18/17 02:00 Vancomycin Trough 11.5 ug/mL (5.0-10.0) H 02/21/17 04:20 Alcohol, Quantitative 73 mg/dl (0-10) H 01/27/17 14:54 IgG 1384.9 mg/dL (700.0-1600.0) 02/17/17 08:40 IgA 681.5 mg/dL (70.0-400.0) H 02/17/17 08:40 IgM 153.5 mg/dL (40.0-230.0) 02/17/17 08:40 Serum Immunofixation Not detected (Not Detected) 02/17/17 20:54 Urine Immunofixation TNP 02/17/17 02:00 SHAYLA Screen Positive (Negative) H 02/17/17 08:40 SHAYLA Titer 1:80 Titer (<1:40) H 02/17/17 08:40 SHAYLA Titer 2 1:80 Titer (<1:40) H 02/17/17 08:40 SHAYLA Pattern Homogeneous H 02/17/17 08:40 SHAYLA Pattern 2 Speckled H 02/17/17 08:40 Anti-Mitochondrial Ab Negative (Negative) 02/17/17 08:40 Anti-Smooth Muscle Ab Negative (Negative) 02/17/17 08:40 Heparin-induced Plt Ab Negative (Negative) 02/02/17 08:51 Liver/Kid Microsomes Ab <=20.0 U (<=20.0) 02/17/17 08:40 RPR Nonreactive (NONREACTIVE) 02/16/17 04:30 Hepatitis A IgM Ab Negative (NEGATIVE) 02/17/17 05:00 Hep Bs Antigen Negative (NEGATIVE) 02/17/17 05:00 Hep B Core IgM Ab Negative (NEGATIVE) 02/17/17 05:00 Hepatitis C Antibody Negative (NEGATIVE) 02/17/17 05:00 HSV Source Description Serum 02/17/17 11:57 HSV I DNA PCR Not detected (Not Detected) 02/17/17 11:57 HSV II DNA PCR Not detected (Not Detected) 02/17/17 11:57 HIV 1&2 Antibody Screen Negative (NEGATIVE) 01/29/17 05:30 Influenza Typ A,B (EIA) Negative for flu a/b (NEGATIVE) 01/27/17 13:21 Ur L.pneumophila Ag Negative (NEGATIVE) 01/31/17 13:36 Mycoplasma pneumon IgG 3.48 (<=0.90) H 01/29/17 05:30 Mycoplasma pneumon IgM 33 U/mL (<770) 01/29/17 05:30 - Hospital Course Hospital Course: 51 y/o female with COPD , fatty liver, Chronic ETOH abuse ( daily 8 cups of 8 ounce vodka ) , smoker , chronic lower back pain brought to ER for evaluation by EMS for facial and lower extremity swelling , SOB and lower back pain. As per patient she has some baseline SOB with ambulation and has chronic lower back pain . Pt was having some lower back pain for which she took some Motrin and Advil PM. and when she woke up she noticed her face and eyes to be swollen and her lower extremities were swollen as well. She could not get out of bed and was having significant back pain . In the ED , was found to be in respiratory distress,with dyspnea RR 35 O2sat 94 %, slightly hypotensive BP 96/65 tachycardic HR 122. She was given 2 Duonebs in the field, 125 mg IV solumedrol in ER , started on IVF and placed on High Flow O2 ,20 LPM FIO2 60 % Her ABG showed PO2 70 PCO2 35 pH 7.38 . CXR showed bilateral infiltrates worse on the right WBC found to be elevated 16.8 Hgb 10 BUN/Cr 20/1.4 rigoberto 6.6 ASt / ALT 150/26 lactic acid 2.6 ETOH levels 73 Physical exam was significant for tremors , increased work of breathing , periorbital, facial and lower extremity edema, her breath smelled of alcohol. Patient had a long hospital course due to Sepsis/PNA, Resp Failure, COPD exacerbation , complicated by AMS due to Hepatic Encephalopathy. She was admitted in ICU for close monitoring and treatment, she improved and was transferred to telemetry but became very agitated , restless , confused , tachypneic and tachycardic and so was transferred back to ICU for close monitoring. She was placed on High Flow Oxygen and started on Precedex drip and later switched to librium and Ativan PRN. She became very lethargic so all sedation medications were stopped including pain medications. CT L-S spine showed DJD and some compression fractures that could be reason for her back pain. Anesthesiology,spine surgeon were consulted . Her confusion improved with Lactulose. Maintaining her O2 sat on 2 liters NC. MRI of thoracic and Lumbar spine: Compression fractures , chronic 1. Severe Sepsis- resolving Most likely secondary to multifocal pneumonia patient was hypotensive,tachycardic,hypoxemic with WBC 16.8 and CXR showed bilateral infiltrates, lactate 2.6 on admission Sputum cx positive for yeast Completed Vanco , Zosyn and Zithromax IV and diflucan ID consulted 2.Acute hypoxemic and hypercarbic respiratory failure, resolved Most likely secondary to multi lobar Pneumonia and COPD exacerbation PE ruled out - neg CTA and V/Q scan was placed on High Flow Oxygen initially , and at present on 2 liters O2 via NC maintaining her airway and saturating 95-98 % discontinued Opiates , sedatives and anti Psychotics as these make pt very sedated Off PreCedex drip since 02/04 Continue Duonebs, Tapered off steroids , on Advair INH Pulmonary and ID consulted ENT consulted and case discussed with Dr. Hernandez . Larynx appears normal , vocal cords with no mass 3. Multifocal Pneumonia ID and pulmonary consulted Received Vanco, Zosyn, Azithro and Diflucan 4. Facial and lower extremity edema prob 2 to cirrhosis unclear etiology of facial edema , resolved TSH : normal Given Solumedrol 125mg , Benadry and Pepcid LE venous doppler negative for DVT Echo showed normal LVF EF 65 -70 % given lasix 5. ETOH abuse / Delirium Tremens was started on Precedex drip in ICU , was agitated /restless and has been off drip since 02/04 tapered off Librium continue Thiamine, Folic acid Seizure precautions/ withdrawal precautions psych consulted- rec Risperdal or Haldol for agitation however pt gets very sedated on theses meds when given.Discontinued all narcotics and psych meds Ammonia level elevated , started Lactulose GI consulted MELD score 15 6. AMS sec to Encephalopathy off all sedatives and opiates Ammonia levels elevated - Started lactulose B12 level normal TSH normal CT of head x 2 : neg MRI brain showed mild generalized atrophy EEG : Cerebral slowing Neurology consulted - Dr Mora Gi consulted cont round the clock Lactulose 7. SUNDAR improved no prior records and unknown baseline renal function improved 8. COPD exacerbation-- improved continue Duone pulmonary consulted counseled on smoking tapered off IV solumedrol 9. Alcohol Liver Dis/ Cirrhosis Bill 6.6 AST 150 on admission. Bili trending down to 2.1, afebrile CT Liver : showed hepatomegaly , fatty infiltration , some ascitic fluid and umbilical vein recannulization significant for portal hypertension \ US showed: Hepatomegaly with steatosis.Trace perihepatic ascites.Nonspecific gallbladder wall thickening. Gallbladder wall thickening is a nonspecific finding which can be seen with ascites, hepatitis, cholecystitis,CHF or hypoproteinemic states. patient has no abdominal pain , no fever , no signs of cholecystitis GI consulted MELD score 15 cont Lactulose - pt needs to have 2-3 BM per day 10. Chronic Lower back pain likely sec to Compression Fractures Ct chest also showed mild chronic compression fracture in mid thoracic spine Multiple attempts made to have pt go for CT of [place] and T spine however pt could not tolerate and could not remain still for the procedure - finally went - CT of the spine showed Acute Thoracic and Lumbar spine compression fractures Neurosurgery consulted- no NSS intervention , rec PT, Pain mgt Pain management consulted and started on Morphine and lidoderm patch . D/c morphine since patient is very somnolent and lethargic MRI spine showed no acute fracture or significant disc protrusion With urinary retention- Gaffney in place draining well now off all opiates, sedatives 11.Anemia unclear etiology iron levels dropping. probably secondary to poor po intake started Venofer B12 levels normal cont Thiamine 12. Thrombocytopenia sec to alcohol, liver dis and meds HIT : negative d/c Lovenox 13.Urinary retention unclear etiology most likely secondary to immobility, pain medication Straight cath placed x 2 with 1000 ml Gaffney cath placed d/c Gaffney yesterday , pt voiding freely 14. Generalized maculopapular rash unclear etiology possible candidiasis cont Diflucan IV Nystatin topical 15. DVT prophylaxis GI prophylaxis d/c lovenox due to thrombocytopenia and coagulopathy Pepcid Discharge Exam - Head Exam Head Exam: ATRAUMATIC, NORMAL INSPECTION, NORMOCEPHALIC - Eye Exam Eye Exam: EOMI, Normal appearance Pupil Exam: NORMAL ACCOMODATION - ENT Exam ENT Exam: Mucous Membranes Moist, Normal External Ear Exam - Neck Exam Neck exam: Full Rom - Respiratory Exam Respiratory Exam: Rales (minimal basilar rales), Rhonchi, NORMAL BREATHING PATTERN. absent: Wheezes, Respiratory Distress - Cardiovascular Exam Cardiovascular Exam: REGULAR RHYTHM, +S1, +S2 - GI/Abdominal Exam GI & Abdominal Exam: Normal Bowel Sounds, Soft. absent: Tenderness - Extremities Exam Extremities exam: normal capillary refill, pedal pulses present - Back Exam Back exam: absent: CVA tenderness (L), CVA tenderness (R) - Neurological Exam Neurological exam: Alert Additional comments: oriented to person and place - Psychiatric Exam Psychiatric exam: Flat Affect, Normal Mood - Skin Skin Exam: Dry, Pallor, Warm Discharge Plan - Follow Up Plan Condition: IMPROVED Disposition: TRANSF TO SNF Instructions: Sepsis (GEN), Pneumonia (DC) Additional Instructions: ff up with Liver specilist on d/c from [facility]
[2017-02-22 19:23] VITALS: BP 96/62; PULSE 94; TEMP 98.9; O2SAT 100
[2017-02-23 11:09] LABS: RHEUMATOID FACTOR 10 IU/mL (<14)
[2017-02-23 11:42] LABS: MYOCARDIAL AB IF NEGATIVE (NEGATIVE)
[2017-02-23 21:21] LABS: RETICULIN AB IGA NEGATIVE (NEGATIVE)
[2017-02-24 01:47] LABS: SM ANTIBODY <1.0 NEG AI (<1.0 NEGATIVE)
== END 2017-02-22 19:52 | DRG 584 ==
LOC: H.ER 12:40 → H.ERHOLD 14:57 → H.ICU/CCU 16:30 → H.TEL 01-29 17:22 → H.ICU/CCU 02-01 11:22 → H.TEL 02-10 19:56
PROVIDERS: ADMIT Hospitalist; ATTEND Hospitalist
PROC: 0CJS8ZZ Inspection of Larynx, Via Natural or Artificial Opening Endoscopic (ICD-10-PCS; principal; 2017-02-16)
DX: A41.9 Sepsis, unspecified organism (principal); N17.9 Acute kidney failure, unspecified; J96.01 Acute respiratory failure with hypoxia; G93.41 Metabolic encephalopathy; F10.231 Alcohol dependence with withdrawal delirium; J18.1 Lobar pneumonia, unspecified organism; D69.59 Other secondary thrombocytopenia; J96.22 Acute and chronic respiratory failure with hypercapnia; K72.90 Hepatic failure, unspecified without coma; E87.5 Hyperkalemia; J44.1 Chronic obstructive pulmonary disease with (acute) exacerbation; J44.0 Chronic obstructive pulmonary disease with (acute) lower respiratory infection; K70.31 Alcoholic cirrhosis of liver with ascites; F11.23 Opioid dependence with withdrawal; K76.6 Portal hypertension; E66.01 Morbid (severe) obesity due to excess calories; F05 Delirium due to known physiological condition; R65.20 Severe sepsis without septic shock; D63.8 Anemia in other chronic diseases classified elsewhere; F10.229 Alcohol dependence with intoxication, unspecified; Y90.3 Blood alcohol level of 60-79 mg/100 ml; J45.909 Unspecified asthma, uncomplicated; F17.200 Nicotine dependence, unspecified, uncomplicated; Z68.37 Body mass index [BMI] 37.0-37.9, adult; G89.29 Other chronic pain; G62.9 Polyneuropathy, unspecified; G82.20 Paraplegia, unspecified; E80.6 Other disorders of bilirubin metabolism; K70.0 Alcoholic fatty liver; K70.11 Alcoholic hepatitis with ascites; E86.0 Dehydration; M48.54XD Collapsed vertebra, not elsewhere classified, thoracic region, subsequent encounter for fracture with routine healing; R21 Rash and other nonspecific skin eruption; Z74.01 Bed confinement status; R33.9 Retention of urine, unspecified

== ENCOUNTER 2017-02-27 22:16 | Inpatient (IN) | payer MEDICAID ==
[2017-02-27] MEDS ORDERED: Albuterol-Ipratrop 3 mg / 0.5 (3 ml) UD INH STA (22:29)
[2017-02-27] MEDS ORDERED: Albuterol-Ipratrop 3 mg / 0.5 (3 ml) UD ONE (22:35)
[2017-02-27 22:51] LABS: VENOUS BLOOD GAS BASE EXCESS 4.9 mmol/L (0.0-2.0); VENOUS BLOOD GAS PCO2 62 mmHg (40-60); VENOUS BLOOD GAS PO2 39 mm/Hg (30-55); VENOUS BLOOD PH 7.33 (7.32-7.43)
[2017-02-27 22:59] LABS: BASO % 0.3 % (0.0-2.0); EOS % 0.4 % (0.0-4.0); HEMOGLOBIN 9.3 g/dL (12.0-16.0); LYMPH # 1.4 K/uL (1.0-4.3); LYMPH % 16.1 % (20.0-40.0); MEAN CELL VOLUME 103.7 fl (81.0-99.0); MEAN CORPUSCULAR HGB CONC 32.8 g/dL (33.0-37.0); MEAN PLATELET VOLUME 8.4 fl (7.2-11.7); MONO # 1.6 K/uL (0.0-0.8); NEUT # 5.7 K/uL (1.8-7.0); NEUT % 65.2 % (50.0-75.0); NRBC % 0.2 % (0.0-0.0); PLATELET COUNT 306 K/uL (130-400); RBC 2.73 Mil/uL (3.80-5.20); RED CELL DISTRIBUTION WIDTH 17.5 % (11.5-14.5); WHITE BLOOD COUNT 8.8 K/uL (4.8-10.8)
--- NOTE | 2017-02-27 23:17 | ED PDOC ---
HPI: SOB/CHF/COPD Time Seen by Provider: 02/27/17 22:19 Chief Complaint (Nursing): Shortness Of Breath Chief Complaint (Provider): shortness of breath History Per: Patient, EMS History/Exam Limitations: no limitations Current Symptoms Are (Timing): Still Present Associated Symptoms: Ankle/Leg Swelling. denies: Fever, Chills, Chest Pain Additional History Per: Skilled Nursing Additional Complaint(s): 51yo female, history of COPD, pneumonia, alcohol abuse, hepatic encephalopathy, cirrhosis, brought in by EMS for evaluation of shortness of breath while the patient was at her [facility]. She denies any associated fever, chills, chest pain, abdominal pain, nausea, vomiting, or diarrhea. No other complaints. Past Medical History Reviewed: Historical Data, Nursing Documentation, Vital Signs Vital Signs: Last Vital Signs Temp 97.3 F L 03/01/17 00:43 Pulse 76 03/01/17 00:43 Resp 18 03/01/17 00:43 BP 147/87 03/01/17 00:43 Pulse Ox 93 L 03/01/17 00:43 - Medical History PMH: Asthma, Bronchitis, COPD, Pneumonia Denies: Chronic Kidney Disease Other PMH: hepatic encephalopathy, cirrhosis - Surgical History Surgical History: No Surg Hx - Family History Family History: States: No Known Family Hx, Unknown Family Hx - Living Arrangements Living Arrangements: Skilled Nursing/Assist Lvng - Social History Ex-Smoker (has not smoked in the last 12 months): Yes Alcohol: None Drugs: Denies - Home Medications Home Medications: Ambulatory Orders Medication Instructions Recorded Acetaminophen [Tylenol 325mg tab] 650 mg PO Q6H PRN tab 02/22/17 Acetaminophen [Tylenol 325mg tab] 650 mg PO Q6H PRN tab 02/22/17 Albuterol/Ipratropium [Duoneb 3 3 ml INH RQ4 neb 02/22/17 mg/0.5 mg (3 ml) UD] Albuterol/Ipratropium [Duoneb 3 3 ml INH RQ4 PRN neb 02/22/17 mg/0.5 mg (3 ml) UD] Docusate [Colace] 100 mg PO BID PRN cap 02/22/17 Fluticasone/Salmeterol 250/50 1 puff IH Q12 puff 02/22/17 [Advair Diskus 250/50] Folic Acid 1 mg PO DAILY tab 02/22/17 Lactulose [Enulose] 20 gm PO TID udc 02/22/17 Lidocaine 5% [Lidoderm] 1 ea TD DAILY patch 02/22/17 Multimineral/Multivitamin 1 tab PO DAILY tab 02/22/17 [Therapeutic-M Tab] Nystatin [Mycostatin Cream] 1 applic TOP TID tube 02/22/17 Nystatin [Nystop Topical Powder] 1 applic TOP QID bottle 02/22/17 Thiamine [Vitamin B1 Tab] 100 mg PO DAILY tab 02/22/17 - Allergies Allergies/Adverse Reactions: Allergies Allergy/AdvReac Type Severity Reaction Status Date / Time No Known Allergies Allergy Verified 01/27/17 12:43 Review of Systems ROS Statement: Except As Marked, All Systems Reviewed And Found Negative Constitutional: Negative for: Fever Cardiovascular: Negative for: Chest Pain Respiratory: Positive for: Shortness of Breath Gastrointestinal: Negative for: Nausea, Vomiting, Abdominal Pain, Diarrhea Physical Exam - Reviewed Nursing Documentation Reviewed: Yes Vital Signs Reviewed: Yes - Physical Exam Appears: Positive for: Uncomfortable Head Exam: Positive for: ATRAUMATIC, NORMAL INSPECTION, NORMOCEPHALIC Skin: Positive for: Normal Color Eye Exam: Positive for: EOMI, PERRL Neck: Positive for: Supple Cardiovascular/Chest: Positive for: Regular Rate, Rhythm Respiratory: Positive for: Rhonchi (bilaterally), Other (on O2 nasal cannula) Gastrointestinal/Abdominal: Positive for: Soft. Negative for: Tenderness Extremity: Positive for: Normal ROM, Pedal Edema (1+ pitting edema bilaterally) , Other (patient is non-ambulatory) Neurologic/Psych: Positive for: Alert, Oriented - Laboratory Results Result Diagrams: 02/28/17 05:25 02/28/17 05:25 - ECG O2 Sat by Pulse Oximetry: 100 (Nasal cannula) Pulse Ox Interpretation: Normal Medical Decision Making Medical Decision Making: Impression: COPD Exacerbation Plan: -- Labs -- EKG -- Chest x-ray -- Duoneb -- Solumedrol 125 mg IVP -- High Flow O2 Reassess pt started on bipap, treated for copd. Time: 0028 Las reviewed and shows chronic anemia. Patient to be admitted under Dr. Lopez for COPD exacerbation.dr lopez aware. pt and family made aware and agreeable to plan. Scribe Attestation: Documented by Lindsay Ayers acting as a scribe for Neha June MD. Provider Attestation: All medical record entries made by the Scribe were at my direction and personally dictated by me. I have reviewed the chart and agree that the record accurately reflects my personal performance of the history, physical exam, medical decision making, and the department course for this patient. I have also personally directed, reviewed, and agree with the discharge instructions and disposition. Disposition - Clinical Impression Clinical Impression: COPD exacerbation - Patient ED Disposition Is Patient to be Admitted: Yes - Disposition Disposition Time: 23:45 Condition: STABLE
[2017-02-27 23:54] LABS: ALB/GLOB RATIO 0.7 (1.0-2.1); ALBUMIN 3.4 g/dL (3.5-5.0); ALT/SGPT 55 U/L (9-52); AST/SGOT 76 U/L (14-36); BLOOD UREA NITROGEN 12 mg/dl (7-17); CALCIUM 9.2 mg/dL (8.4-10.2); GFR AFRICAN-AMERICAN > 60; GFR NON-AFRICAN AMERICAN > 60
[2017-02-28 00:16] LABS: ANISOCYTOSIS SLIGHT; BANDS 2 % (0-2); LARGE PLATELETS PRESENT; LYMPHOCYTE 15 % (20-50); METAMYELOCYTE 1 % (0-0); MONOCYTE 15 % (0-10); NEUTROPHIL 67 % (42-75); OVALOCYTES SLIGHT; PLATELET ESTIMATE NORMAL (NORMAL); POIKILOCYTOSIS SLIGHT; TARGET CELLS SLIGHT; TOTAL CELLS COUNTED 100
[2017-02-28] MEDS ORDERED: levoFLOXacin 750 mg in D5W 150 ML BAG IVPB STA (00:27)
[2017-02-28] MEDS ORDERED: levoFLOXacin 750 mg in D5W 750 MG/150 ML BAG IVPB ONE (01:00)
[2017-02-28] MEDS ORDERED: Albuterol-Ipratrop 3 mg / 0.5 (3 ml) UD INH PRN ×2 (04:59→15:28)
[2017-02-28 06:05] LABS: MEAN CELL VOLUME 107.1 fl (81.0-99.0); MEAN CORPUSCULAR HGB CONC 31.8 g/dL (33.0-37.0); RBC 2.66 Mil/uL (3.80-5.20); RED CELL DISTRIBUTION WIDTH 17.4 % (11.5-14.5); WHITE BLOOD COUNT 7.2 K/uL (4.8-10.8)
[2017-02-28 06:17] LABS: ALBUMIN 3.2 g/dL (3.5-5.0); ALT/SGPT 53 U/L (9-52); AST/SGOT 71 U/L (14-36); BLOOD UREA NITROGEN 12 mg/dl (7-17); CALCIUM 9.2 mg/dL (8.4-10.2); GFR AFRICAN-AMERICAN > 60; GFR NON-AFRICAN AMERICAN > 60
[2017-02-28 06:22] LABS: B-TYPE NATRIURETIC PEPTIDE 623 pg/ml (0-900)
[2017-02-28 06:42] LABS: ALB/GLOB RATIO 0.7 (1.0-2.1)
--- NOTE | 2017-02-28 08:32 | CARD ---
APPROVED REPORT EKG Measurement Heart [id number] <Conclusion> Sinus tachycardia Possible Anterior infarct, age undetermined Abnormal ECG
--- NOTE | 2017-02-28 09:04 | RAD ---
HISTORY: sob COMPARISON: Chest radiograph dated 02/17/2017. FINDINGS: LUNGS: Left upper lobe linear atelectasis versus infiltrate. Nonspecific hazy appearance at the right lung base. PLEURA: No significant pleural effusion identified, no pneumothorax apparent. CARDIOVASCULAR: Stably enlarged. OSSEOUS STRUCTURES: Right-sided rib fractures redemonstrated. Unchanged. VISUALIZED UPPER ABDOMEN: Normal. OTHER FINDINGS: None. IMPRESSION: Left upper lobe linear atelectasis versus infiltrate. Nonspecific hazy appearance of the right lung base.
[2017-02-28] MEDS ORDERED: methylPREDNISolone 60 MG in Sodium Chloride 0.9% 50 ML IV SCH (10:00)
[2017-02-28 13:18] LABS: SQUAMOUS EPITHIAL 3 /hpf (0-5); URINE BACTERIA OCC (<OCC); URINE BILIRUBIN NEGATIVE (NEGATIVE); URINE BLOOD MODERATE (NEGATIVE); URINE CLARITY SLIGHTY-CLOUDY (Clear); URINE COLOR YELLOW (YELLOW); URINE GLUCOSE (UA) NEG (Normal); URINE LEUKOCYTE ESTERASE MOD Leu/uL (Negative); URINE NITRATE NEGATIVE (NEGATIVE); URINE PROTEIN NEGATIVE (NEGATIVE); URINE UROBILINOGEN 0.2-1.0 mg/dL (0.2-1.0)
[2017-02-28] MEDS: Albuterol-Ipratrop 3 mg / 0.5 (3 ml) UD INH SCH ×3 (18:39→23:47)
--- NOTE | 2017-02-28 19:13 | HP ---
CHIEF COMPLAINT: Shortness of breath and congested . HISTORY OF PRESENT ILLNESS: This is a 51-year-old female who was recently discharged from [facility] after being admitted for COPD exacerbation who was in [facility] and was receiving all the treatment, but patient started having difficulty breathing and felt congested, so patient was sent to the hospital and was admitted for further management. PAST MEDICAL HISTORY: Significant for COPD, morbid obesity, asthma. Patient also has a history of cirrhosis. PAST SURGICAL HISTORY: Unremarkable. FAMILY HISTORY: Noncontributory. MEDICATIONS: Patient is on multiple medications, which is as per reconciliation sheet, which was reviewed and ordered. REVIEW OF SYSTEMS: Positive for shortness of breath. Otherwise, is negative for headache, dizziness, syncope, loss of consciousness, chest pain, nausea, vomiting, diarrhea, constipation, any knee joint or extremity pain. Review of system of all other organ system is unremarkable. PHYSICAL EXAMINATION: GENERAL: Well-built, well-nourished, morbidly obese 51-year-old female in no acute distress. VITAL SIGNS: Temperature 98.1, pulse 96, respirations 18, blood pressure 127/79. HEENT: Pupils are reacting to light. No JVD. No thyromegaly. No lymphadenopathy. No nystagmus. Normocephalic and atraumatic skull. HEART: S1, S2 normal, regular. No significant murmur, gallops, or rub is heard. LUNGS: Exam showed bilateral decreased air exchange consistent with COPD with exacerbation. Also has crepitation at the right lower lobe. ABDOMEN: Soft, nontender, no organomegaly. No fluid. Bowel sounds are plus. EXTREMITIES: No edema. No calf swelling. No tenderness. No acute ischemia. CENTRAL NERVOUS SYSTEM: Essentially unchanged. DIAGNOSTIC DATA: Available diagnostic data reviewed. WBC 7.2, hemoglobin 9, hematocrit 28.3, platelet 231. Sodium 139, potassium 4.4, chloride 103, bicarb 24, BUN 12, creatinine 0.6. SMA-12 is unremarkable. Chest x-ray is consistent with right lower lobe pneumonia, questionable left-sided pneumonia as well. EKG shows sinus tachycardia but no acute ST-T changes. ADMITTING IMPRESSION: 1. Bilateral pneumonia. 2. Chronic obstructive pulmonary disease with exacerbation. 3. Morbid obesity. 4. Cirrhosis of the liver. PLAN: As ordered. Case and plan discussed with the patient. Ankur Lopez MD [facility] # [id number]
[2017-02-28] MEDS: Fluticasone-Salmeterol 250-50mcg Diskus IH SCH (21:41)
[2017-03-01] MEDS: Albuterol-Ipratrop 3 mg / 0.5 (3 ml) UD INH SCH ×6 (05:25→23:47)
[2017-03-01 05:50] LABS: HEMOGLOBIN 9.1 g/dL (12.0-16.0); MEAN CELL VOLUME 105.1 fl (81.0-99.0); MEAN CORPUSCULAR HEMOGLOBIN 34.5 pg (27.0-31.0); MEAN CORPUSCULAR HGB CONC 32.9 g/dL (33.0-37.0); RBC 2.64 Mil/uL (3.80-5.20); RED CELL DISTRIBUTION WIDTH 16.9 % (11.5-14.5); WHITE BLOOD COUNT 10.6 K/uL (4.8-10.8)
[2017-03-01 06:24] LABS: ALB/GLOB RATIO 0.7 (1.0-2.1); ALBUMIN 3.2 g/dL (3.5-5.0); ALT/SGPT 59 U/L (9-52); AST/SGOT 73 U/L (14-36); BLOOD UREA NITROGEN 14 mg/dl (7-17); CALCIUM 9.2 mg/dL (8.4-10.2); GFR AFRICAN-AMERICAN > 60; GFR NON-AFRICAN AMERICAN > 60
[2017-03-01] MEDS: Fluticasone-Salmeterol 250-50mcg Diskus IH SCH ×2 (08:25→22:16)
[2017-03-01] MEDS: Enoxaparin 40 mg Syringe SC SCH (08:28)
[2017-03-01] MEDS: Lidocaine 5% Patch TD SCH (08:28)
[2017-03-01] MEDS: Multivitamin With Minerals Tab PO SCH (08:31)
--- NOTE | 2017-03-01 10:56 | CP.PCM.PN ---
Subjective - Date & Time of Evaluation Date of Evaluation: 03/01/17 Time of Evaluation: 07:55 - Subjective Subjective: Patient seen and examined bedside with Dr gama. Patient awake, alert, oriented x 2, breathing with High flow NC. Denies fever, chest pain, headache, nusea, vomiting,abd pain. no overnight events. Objective - Vital Signs/Intake and Output Vital Signs (last 24 hours): Temp Pulse Resp BP Pulse Ox 98.6 F 99 H 20 124/77 95 03/01/17 08:18 03/01/17 08:18 03/01/17 08:18 03/01/17 08:18 03/01/17 08:18 Intake and Output: 03/01/17 03/01/17 06:59 18:59 Output Total 500 Balance -500 - Medications Medications: Current Medications Acetaminophen (Tylenol 325mg Tab) 650 mg PO Q6H PRN PRN Reason: Pain, Mild (1-3) Last Admin: 02/28/17 16:12 Dose: 650 mg Acetaminophen (Tylenol 325mg Tab) 650 mg PO Q6H PRN PRN Reason: Fever >100.4 F Albuterol/Ipratropium (Duoneb 3 Mg/0.5 Mg (3 Ml) Ud) 3 ml INH RQ4 PRN PRN Reason: Shortness of Breath Last Admin: 02/28/17 05:24 Dose: 3 ml Albuterol/Ipratropium (Duoneb 3 Mg/0.5 Mg (3 Ml) Ud) 3 ml INH RQ4 PRN PRN Reason: Shortness of Breath Albuterol/Ipratropium (Duoneb 3 Mg/0.5 Mg (3 Ml) Ud) 3 ml INH RQ4 [facility] Last Admin: 03/01/17 07:53 Dose: 3 ml Docusate Sodium (Colace) 100 mg PO BID PRN PRN Reason: Constipation Enoxaparin Sodium (Lovenox) 40 mg SC DAILY [facility] PRN Reason: Protocol Last Admin: 03/01/17 08:28 Dose: 40 mg Folic Acid (Folic Acid) 1 mg PO DAILY [facility] Last Admin: 03/01/17 08:27 Dose: 1 mg Lactulose (Enulose) 20 gm PO TID [facility] Last Admin: 03/01/17 08:27 Dose: Not Given Lidocaine (Lidoderm) 1 ea TD DAILY [facility] Last Admin: 12/26/17 08:28 Dose: 1 ea Methylprednisolone (Solu-Medrol) 60 mg IV Q6 [facility] Last Admin: 03/01/17 04:56 Dose: 60 mg Multivitamins/Minerals (Therapeutic-M Tab) 1 tab PO DAILY [facility] Last Admin: 03/01/17 08:31 Dose: 1 tab Nystatin (Mycostatin Cream) 1 applic TOP TID [facility] Last Admin: 03/01/17 08:29 Dose: 1 appl Nystatin (Nystop Topical Powder) 1 applic TOP QID [facility] Last Admin: 03/01/17 08:29 Dose: 1 applic Fluticasone/Salmeterol (Advair Diskus 250/50) 1 puff IH Q12 [facility] Last Admin: 03/01/17 08:25 Dose: 1 puff Thiamine HCl (Vitamin B1 Tab) 100 mg PO DAILY [facility] Last Admin: 03/01/17 08:30 Dose: 100 mg - Labs Labs: 03/01/17 04:20 03/01/17 04:20 - Constitutional Appears: Non-toxic, No Acute Distress - Head Exam Head Exam: ATRAUMATIC, NORMOCEPHALIC - Eye Exam Eye Exam: Normal appearance - ENT Exam ENT Exam: Mucous Membranes Moist - Respiratory Exam Respiratory Exam: Decreased Breath Sounds, Wheezes Additional comments: bibasilar - Cardiovascular Exam Cardiovascular Exam: REGULAR RHYTHM, +S1, +S2 - GI/Abdominal Exam GI & Abdominal Exam: Soft, Normal Bowel Sounds. absent: Tenderness - Extremities Exam Extremities Exam: Normal Inspection. absent: Pedal Edema - Neurological Exam Neurological Exam: Alert, Awake - Psychiatric Exam Psychiatric exam: Normal Affect - Skin Skin Exam: Intact Assessment and Plan - Assessment and Plan (Free Text) Plan: Assessment/Plan 1) COPD exacerbation -duoneb -solumedrol -High Flow NC -Fund Manager consult suggested 2) B/L pneumonia Left upper lobe linear atelectasis versus infiltrate. nonspecific hazy appeareance of the right lung base -Levaquin 750 mg IV 3) Cirrhosis -recent CT liver did not reveal any previous ascites, only cirrhotic changes 4) DVT Prophylaxis -lovenox
[2017-03-01] MEDS ORDERED: MethylPREDNISolone 40 mg Vial IV SCH (13:26)
--- NOTE | 2017-03-01 14:33 | CP.PCM.CON ---
History of Present Illness - History of Present Illness History of Present Illness: General surgery consult for Dr. Anastasia Espino, PGY-1 Pt S & E at bedside. Pt poor historian with history of ETOH abuse 51F w/PMH sig for Morbid obesity, COPD, hx cirrhosis in setting of ETOH abuse, asthma consulted for abdominal pain x 1 day. Per nursing, pt has been inpatient x 6 weeks for COPD exacerbation & cirrhosis. Pt has had multiple non bloody BMs overnight, never complained of abdominal pain until this AM. Noted that pt had poor appetite. Per pt, she has not had a BM for several weeks, abdominal pain is diffuse, severe, sharp, non radiating. Admits to chronic low back pain, SOB. Denies N & V, F & C, unable to obtain a complete ROS due to patient non-compliance. PMH: Morbid obesity, COPD, hx cirrhosis in setting of ETOH abuse, asthma PSH: Denies All: NKDA SH: Hx ETOH and tobacco abuse (cannot quantify), denies illicit drug use Review of Systems - Review of Systems Systems not reviewed;Unavailable: Uncooperative All systems: reviewed and no additional remarkable complaints except - Constitutional Constitutional: absent: Chills, Fever - Cardiovascular Cardiovascular: absent: Chest Pain - Gastrointestinal Gastrointestinal: Abdominal Pain. absent: Constipation, Diarrhea, Hematemesis, Hematochezia, Nausea, Vomiting - Genitourinary Genitourinary: absent: Dysuria, Hematuria, Pyuria, Urinary Frequency, Urinary Urgency Past Patient History - Infectious Disease Hx of Infectious Diseases: None - Tetanus Immunizations Tetanus Immunization: Unknown - Past Medical History & Family History Past Medical History?: Yes - Past Social History Alcohol: None Drugs: Denies - CARDIAC Hx Cardiac Disorders: No - PULMONARY Hx Asthma: Yes Hx Bronchitis: Yes Hx Chronic Obstructive Pulmonary Disease (COPD): Yes Hx Pneumonia: Yes - NEUROLOGICAL Hx Neurological Disorder: No - HEENT Hx HEENT Problems: No - RENAL Hx Chronic Kidney Disease: No - ENDOCRINE/METABOLIC Hx Endocrine Disorders: No - HEMATOLOGICAL/ONCOLOGICAL Hx Blood Disorders: No Hx AIDS: No Hx Human Immunodeficiency Virus (HIV): No - INTEGUMENTARY Hx Dermatological Problems: No - MUSCULOSKELETAL/RHEUMATOLOGICAL Hx Musculoskeletal Disorders: Yes Hx Back Pain: Yes (lower back pain ) Hx Falls: No - GASTROINTESTINAL Hx Gastrointestinal Disorders: Yes Hx Fatty Liver Disease: Yes - GENITOURINARY/GYNECOLOGICAL Hx Genitourinary Disorders: No - PSYCHIATRIC Hx Psychophysiologic Disorder: No Hx Substance Use: No - SURGICAL HISTORY Hx Surgeries: No - ANESTHESIA Hx Anesthesia: No Hx Anesthesia Reactions: No Meds Allergies/Adverse Reactions: Allergies Allergy/AdvReac Type Severity Reaction Status Date / Time No Known Allergies Allergy Verified 01/27/17 12:43 - Medications Medications: Current Medications Acetaminophen (Tylenol 325mg Tab) 650 mg PO Q6H PRN PRN Reason: Pain, Mild (1-3) Last Admin: 02/28/17 16:12 Dose: 650 mg Acetaminophen (Tylenol 325mg Tab) 650 mg PO Q6H PRN PRN Reason: Fever >100.4 F Albuterol/Ipratropium (Duoneb 3 Mg/0.5 Mg (3 Ml) Ud) 3 ml INH RQ4 PRN PRN Reason: Shortness of Breath Last Admin: 02/28/17 05:24 Dose: 3 ml Albuterol/Ipratropium (Duoneb 3 Mg/0.5 Mg (3 Ml) Ud) 3 ml INH RQ4 PRN PRN Reason: Shortness of Breath Albuterol/Ipratropium (Duoneb 3 Mg/0.5 Mg (3 Ml) Ud) 3 ml INH RQ4 [facility] Last Admin: 03/01/17 11:46 Dose: 3 ml Docusate Sodium (Colace) 100 mg PO BID PRN PRN Reason: Constipation Enoxaparin Sodium (Lovenox) 40 mg SC DAILY [facility] PRN Reason: Protocol Last Admin: 03/01/17 08:28 Dose: 40 mg Folic Acid (Folic Acid) 1 mg PO DAILY [facility] Last Admin: 03/01/17 08:27 Dose: 1 mg Lactulose (Enulose) 20 gm PO TID [facility] Last Admin: 03/01/17 13:27 Dose: 20 gm Lidocaine (Lidoderm) 1 ea TD DAILY [facility] Last Admin: 03/01/17 08:28 Dose: 1 ea Methylprednisolone (Solu-Medrol) 40 mg IV Q6 [facility] Multivitamins/Minerals (Therapeutic-M Tab) 1 tab PO DAILY [facility] Last Admin: 03/01/17 08:31 Dose: 1 tab Nystatin (Mycostatin Cream) 1 applic TOP TID [facility] Last Admin: 03/01/17 13:27 Dose: 1 appl Nystatin (Nystop Topical Powder) 1 applic TOP QID [facility] Last Admin: 03/01/17 13:26 Dose: 1 applic Pantoprazole Sodium (Protonix Inj) 40 mg IVP DAILY [facility] Last Admin: 03/01/17 13:19 Dose: 40 mg Fluticasone/Salmeterol (Advair Diskus 250/50) 1 puff IH Q12 [facility] Last Admin: 03/01/17 08:25 Dose: 1 puff Thiamine HCl (Vitamin B1 Tab) 100 mg PO DAILY [facility] Last Admin: 03/01/17 08:30 Dose: 100 mg Physical Exam - Constitutional Appears: Non-toxic, No Acute Distress - Head Exam Head Exam: ATRAUMATIC, NORMAL INSPECTION, NORMOCEPHALIC - Eye Exam Eye Exam: EOMI, Normal appearance - ENT Exam ENT Exam: Mucous Membranes Moist, Normal Exam - Neck Exam Neck exam: Positive for: Full Rom, Normal Inspection - Respiratory Exam Respiratory Exam: NORMAL BREATHING PATTERN Additional comments: O2 via NC in nares - Cardiovascular Exam Cardiovascular Exam: REGULAR RHYTHM, +S1, +S2 - GI/Abdominal Exam GI & Abdominal Exam: Guarding (epigastric area), Tenderness (epigastric, periumbilical). absent: Distended (morbidly obese), Rebound, Rigid Additional comments: Pannus with tenderness underneath, skin erythema and yellow plaques in intertriginous areas, moisture - Rectal Exam Rectal Exam: NORMAL INSPECTION. absent: Fecal Impaction - Extremities Exam Extremities exam: Positive for: normal inspection. Negative for: pedal edema - Back Exam Back exam: tenderness (bilateral lower and mid back) - Neurological Exam Neurological exam: Alert, CN II-XII Intact - Psychiatric Exam Psychiatric exam: Anxious (labile) - Skin Skin Exam: Erythema, Rash (over pannus on lateral aspects and intertriginous areas with moisture and yellow plaques), Warm Results - Vital Signs Recent Vital Signs: Last Vital Signs Temp 97.8 F 03/01/17 12:36 Pulse 103 H 03/01/17 12:36 Resp 18 03/01/17 12:36 BP 124/73 03/01/17 12:36 Pulse Ox 100 03/01/17 12:36 - Labs Result Diagrams: 03/01/17 04:20 03/01/17 04:20 Labs: Laboratory Results - last 24 hr 03/01/17 03/01/17 04:20 04:20 WBC 10.6 RBC 2.64 L Hgb 9.1 L Hct 27.7 L MCV 105.1 H D MCH 34.5 H MCHC 32.9 L RDW 16.9 H Plt Count 261 Sodium 142 Potassium 3.6 Chloride 103 Carbon Dioxide 33 H Anion Gap 10 BUN 14 Creatinine 0.6 L Est GFR ( Amer) > 60 Est GFR (Non-Af Amer) > 60 Random Glucose 136 H Calcium 9.2 Total Bilirubin 1.6 H AST 73 H ALT 59 H Alkaline Phosphatase 164 H Total Protein 7.6 Albumin 3.2 L Globulin 4.4 H Albumin/Globulin Ratio 0.7 L Assessment & Plan - Assessment and Plan (Free Text) Assessment: 51F w/PMH sig for Morbid obesity, COPD, hx cirrhosis in setting of ETOH abuse, asthma consulted for abdominal pain x 1 day, afebrile, no leukocytosis, no recent imaging Plan: Pain control Anti-emetic PRN FU CT ab FU lipase Serial Ab exams FU GI consult Further recs pending imaging [place] attending Kenzie, PGY-1 - Date & Time Date: 03/01/17 Time: 14:38
[2017-03-01] MEDS ORDERED: Iohexol 240 (50 ml) PO ONE (14:50)
--- NOTE | 2017-03-01 14:54 | CP.PCM.CON ---
<Maegan Reyes - Last Filed: 03/01/17 15:26> History of Present Illness - History of Present Illness History of Present Illness: PGY4 Initial GI Consult Zehra Jules is a 51F w/ hx of COPD and Alcohol abuse presenting with shortness of breath. Pt waas recently admitted to [facility] for Sepsis, PNA, COPD exacerbation, and hepatic encephalopathy. Pt was actively being treated for a possible COPD exacerbation. As per RN, pt started to complain of diffuse abd pain in all quadrants. She states that it was sudden. She denies any alleviating factors, but she notes food worsens the pain. She did not have any fever, chills or diaphoresis. Prior to discharge, she was seen by Dr. Gonzales who recommend an oupt EGD and Colonoscopy for screening for varicies and colon cancer. Pt was also placed on lactulose for HE. RN notes that she is having 2-3 loose BM daily due to the lactulose. Pt has a CT liver 02/19/17 which revealed cirrhotic liver changes and evidence of portal HTN with minimal/trace ascities. Family- unable to confirm; on record review- mother-breast cancer, lung cancer, father- throat cancer Social-unable to confirm; on record review-vodka [id number] years, [id number] , prior cocaine use 30 years ago Surgery-unable to confirm; on record review-none ROS: could not be conducted due to AMS Past Patient History - Infectious Disease Hx of Infectious Diseases: None - Tetanus Immunizations Tetanus Immunization: Unknown - Past Medical History & Family History Past Medical History?: Yes - Past Social History Alcohol: None Drugs: Denies - CARDIAC Hx Cardiac Disorders: No - PULMONARY Hx Asthma: Yes Hx Bronchitis: Yes Hx Chronic Obstructive Pulmonary Disease (COPD): Yes Hx Pneumonia: Yes - NEUROLOGICAL Hx Neurological Disorder: No - HEENT Hx HEENT Problems: No - RENAL Hx Chronic Kidney Disease: No - ENDOCRINE/METABOLIC Hx Endocrine Disorders: No - HEMATOLOGICAL/ONCOLOGICAL Hx Blood Disorders: No Hx AIDS: No Hx Human Immunodeficiency Virus (HIV): No - INTEGUMENTARY Hx Dermatological Problems: No - MUSCULOSKELETAL/RHEUMATOLOGICAL Hx Musculoskeletal Disorders: Yes Hx Back Pain: Yes (lower back pain ) Hx Falls: No - GASTROINTESTINAL Hx Gastrointestinal Disorders: Yes Hx Fatty Liver Disease: Yes - GENITOURINARY/GYNECOLOGICAL Hx Genitourinary Disorders: No - PSYCHIATRIC Hx Psychophysiologic Disorder: No Hx Substance Use: No - SURGICAL HISTORY Hx Surgeries: No - ANESTHESIA Hx Anesthesia: No Hx Anesthesia Reactions: No Meds Allergies/Adverse Reactions: Allergies Allergy/AdvReac Type Severity Reaction Status Date / Time No Known Allergies Allergy Verified 01/27/17 12:43 - Medications Medications: Current Medications Acetaminophen (Tylenol 325mg Tab) 650 mg PO Q6H PRN PRN Reason: Pain, Mild (1-3) Last Admin: 02/28/17 16:12 Dose: 650 mg Acetaminophen (Tylenol 325mg Tab) 650 mg PO Q6H PRN PRN Reason: Fever >100.4 F Albuterol/Ipratropium (Duoneb 3 Mg/0.5 Mg (3 Ml) Ud) 3 ml INH RQ4 PRN PRN Reason: Shortness of Breath Last Admin: 02/28/17 05:24 Dose: 3 ml Albuterol/Ipratropium (Duoneb 3 Mg/0.5 Mg (3 Ml) Ud) 3 ml INH RQ4 PRN PRN Reason: Shortness of Breath Albuterol/Ipratropium (Duoneb 3 Mg/0.5 Mg (3 Ml) Ud) 3 ml INH RQ4 [facility] Last Admin: 03/01/17 11:46 Dose: 3 ml Docusate Sodium (Colace) 100 mg PO BID PRN PRN Reason: Constipation Enoxaparin Sodium (Lovenox) 40 mg SC DAILY [facility] PRN Reason: Protocol Last Admin: 03/01/17 08:28 Dose: 40 mg Folic Acid (Folic Acid) 1 mg PO DAILY [facility] Last Admin: 03/01/17 08:27 Dose: 1 mg Iohexol (Omnipaque 240 (50 Ml)) 0 ml PO ONCE ONE Stop: 03/01/17 14:51 Lactulose (Enulose) 20 gm PO TID [facility] Last Admin: 03/01/17 13:27 Dose: 20 gm Lidocaine (Lidoderm) 1 ea TD DAILY [facility] Last Admin: 03/01/17 08:28 Dose: 1 ea Methylprednisolone (Solu-Medrol) 40 mg IV Q6 [facility] Multivitamins/Minerals (Therapeutic-M Tab) 1 tab PO DAILY [facility] Last Admin: 03/01/17 08:31 Dose: 1 tab Nystatin (Mycostatin Cream) 1 applic TOP TID [facility] Last Admin: 03/01/17 13:27 Dose: 1 appl Nystatin (Nystop Topical Powder) 1 applic TOP QID [facility] Last Admin: 03/01/17 13:26 Dose: 1 applic Pantoprazole Sodium (Protonix Inj) 40 mg IVP DAILY [facility] Last Admin: 03/01/17 13:19 Dose: 40 mg Fluticasone/Salmeterol (Advair Diskus 250/50) 1 puff IH Q12 [facility] Last Admin: 03/01/17 08:25 Dose: 1 puff Thiamine HCl (Vitamin B1 Tab) 100 mg PO DAILY [facility] Last Admin: 03/01/17 08:30 Dose: 100 mg Physical Exam - Constitutional Appears: In Acute Distress, Confused - Head Exam Head Exam: ATRAUMATIC, NORMOCEPHALIC - Eye Exam Eye Exam: Normal appearance - ENT Exam ENT Exam: Mucous Membranes Moist - Respiratory Exam Respiratory Exam: Decreased Breath Sounds, Rales, Rhonchi, Wheezes, Respiratory Distress - Cardiovascular Exam Cardiovascular Exam: REGULAR RHYTHM, +S1 - GI/Abdominal Exam GI & Abdominal Exam: Distended, Guarding, Hypoactive Bowel Sounds, Tenderness ( diffuse) - Extremities Exam Extremities exam: Positive for: pedal edema. Negative for: joint swelling - Neurological Exam Neurological exam: Altered - Psychiatric Exam Psychiatric exam: Agitated - Skin Skin Exam: Dry, Intact, Normal Color, Warm Results - Vital Signs Recent Vital Signs: Last Vital Signs Temp 97.8 F 03/01/17 12:36 Pulse 103 H 03/01/17 12:36 Resp 18 03/01/17 12:36 BP 124/73 03/01/17 12:36 Pulse Ox 100 03/01/17 12:36 - Labs Result Diagrams: 03/01/17 15:00 03/01/17 04:20 Labs: Laboratory Results - last 24 hr 03/01/17 03/01/17 04:20 04:20 WBC 10.6 RBC 2.64 L Hgb 9.1 L Hct 27.7 L MCV 105.1 H D MCH 34.5 H MCHC 32.9 L RDW 16.9 H Plt Count 261 Sodium 142 Potassium 3.6 Chloride 103 Carbon Dioxide 33 H Anion Gap 10 BUN 14 Creatinine 0.6 L Est GFR ( Amer) > 60 Est GFR (Non-Af Amer) > 60 Random Glucose 136 H Calcium 9.2 Total Bilirubin 1.6 H AST 73 H ALT 59 H Alkaline Phosphatase 164 H Total Protein 7.6 Albumin 3.2 L Globulin 4.4 H Albumin/Globulin Ratio 0.7 L Assessment & Plan - Assessment and Plan (Free Text) Assessment: Zehra Jules is a 51F w/ hx of COPD, HTN, cirrohisis, ewtoh abuse who presented to shortness of breath. Pt acutely complaint of sudden diffuse abd pain etiology unknown Abd pain, unknown etiology r/o peritonitis, ischemic bowel Cirrhosis 2/2 ETOH hx of ETOH abuse Plan: -will get an abd xray -recent CT liver did not reveal any previous ascites, only cirrhotic changes -hold the lactulose -get lactic acid -respir status worsened -recommend higher level of care -surgery onboard -EGD/colonscopy as oupt -2-3 soft BM s/p lactulose D/W Dr. Merino <Gage Merino - Last Filed: 03/01/17 15:42> Meds - Medications Medications: Current Medications Acetaminophen (Tylenol 325mg Tab) 650 mg PO Q6H PRN PRN Reason: Pain, Mild (1-3) Last Admin: 02/28/17 16:12 Dose: 650 mg Acetaminophen (Tylenol 325mg Tab) 650 mg PO Q6H PRN PRN Reason: Fever >100.4 F Albuterol/Ipratropium (Duoneb 3 Mg/0.5 Mg (3 Ml) Ud) 3 ml INH RQ4 PRN PRN Reason: Shortness of Breath Last Admin: 02/28/17 05:24 Dose: 3 ml Albuterol/Ipratropium (Duoneb 3 Mg/0.5 Mg (3 Ml) Ud) 3 ml INH RQ4 PRN PRN Reason: Shortness of Breath Albuterol/Ipratropium (Duoneb 3 Mg/0.5 Mg (3 Ml) Ud) 3 ml INH RQ4 [facility] Last Admin: 03/01/17 15:29 Dose: 3 ml Docusate Sodium (Colace) 100 mg PO BID PRN PRN Reason: Constipation Enoxaparin Sodium (Lovenox) 40 mg SC DAILY [facility] PRN Reason: Protocol Last Admin: 03/01/17 08:28 Dose: 40 mg Folic Acid (Folic Acid) 1 mg PO DAILY [facility] Last Admin: 03/01/17 08:27 Dose: 1 mg Levalbuterol HCl (Xopenex) 0.63 mg INH RQ8 PRN PRN Reason: Shortness of Breath Lidocaine (Lidoderm) 1 ea TD DAILY [facility] Last Admin: 03/01/17 08:28 Dose: 1 ea Methylprednisolone (Solu-Medrol) 40 mg IV Q6 [facility] Multivitamins/Minerals (Therapeutic-M Tab) 1 tab PO DAILY [facility] Last Admin: 03/01/17 08:31 Dose: 1 tab Nystatin (Mycostatin Cream) 1 applic TOP TID [facility] Last Admin: 03/01/17 13:27 Dose: 1 appl Nystatin (Nystop Topical Powder) 1 applic TOP QID [facility] Last Admin: 03/01/17 13:26 Dose: 1 applic Pantoprazole Sodium (Protonix Inj) 40 mg IVP DAILY [facility] Last Admin: 03/01/17 13:19 Dose: 40 mg Fluticasone/Salmeterol (Advair Diskus 250/50) 1 puff IH Q12 [facility] Last Admin: 03/01/17 08:25 Dose: 1 puff Thiamine HCl (Vitamin B1 Tab) 100 mg PO DAILY [facility] Last Admin: 03/01/17 08:30 Dose: 100 mg Results - Vital Signs Recent Vital Signs: Last Vital Signs Temp 97.8 F 03/01/17 12:36 Pulse 103 H 03/01/17 12:36 Resp 18 03/01/17 12:36 BP 124/73 03/01/17 12:36 Pulse Ox 100 03/01/17 12:36 - Labs Result Diagrams: 03/01/17 15:00 03/01/17 15:00 Labs: Laboratory Results - last 24 hr 03/01/17 03/01/17 03/01/17 04:20 04:20 15:00 WBC 10.6 12.1 H RBC 2.64 L 3.00 L Hgb 9.1 L 10.1 L Hct 27.7 L 30.7 L MCV 105.1 H D 102.2 H D MCH 34.5 H 33.8 H MCHC 32.9 L 33.0 RDW 16.9 H 17.0 H Plt Count 261 357 PT INR APTT Sodium 142 Potassium 3.6 Chloride 103 Carbon Dioxide 33 H Anion Gap 10 BUN 14 Creatinine 0.6 L Est GFR ( Amer) > 60 Est GFR (Non-Af Amer) > 60 Random Glucose 136 H Calcium 9.2 Total Bilirubin 1.6 H AST 73 H ALT 59 H Alkaline Phosphatase 164 H Ammonia Total Protein 7.6 Albumin 3.2 L Globulin 4.4 H Albumin/Globulin Ratio 0.7 L 03/01/17 03/01/17 03/01/17 15:00 15:00 15:00 WBC RBC Hgb Hct MCV MCH MCHC RDW Plt Count PT 18.6 H INR 1.7 H APTT 33.0 Sodium 141 Potassium 3.8 Chloride 102 Carbon Dioxide 31 H Anion Gap 12 BUN 15 Creatinine 0.7 Est GFR ( Amer) > 60 Est GFR (Non-Af Amer) > 60 Random Glucose 132 H Calcium 9.4 Total Bilirubin 2.0 H AST 78 H ALT 65 H Alkaline Phosphatase 182 H Ammonia 42 D Total Protein 7.9 Albumin 3.4 L Globulin Albumin/Globulin Ratio Attending/Attestation - Attestation I have personally seen and examined this patient.: Yes I have fully participated in the care of the patient.: Yes I have reviewed all pertinent clinical information: Yes Notes (Text): 03/01/17 15:35 I have seen and examined patient with GI fellow. Agree with above documentation with the following additions. In brief, this is a 51 year old female with history of decompensated ETOH cirrhosis, COPD, obesity, who was initially admitted to hospital with complaint of dyspnea and treated for COPD exacerbation. GI called for evaluation of new onset abdominal pain which began yesterday suddenly. The pain is described as diffuse, non-radiating and worse following movement. She denies vomiting, fever/chills, weight loss, rectal bleeding, or change in bowel habits. She is having 2 bowel movements daily while on lactulose therapy. No prior endoscopic evaluation. She is currently seen in respiratory distress, not able to formulate complete sentences despite O2 NRB mask. Additional physical examination: Abdomen: no palpable hepato/splenomegaly Dyspnea - COPD exacerbation Decompensated ETOH cirrhosis Polysubstance abuse - Given acute respiratory distress with audible bilateral wheezing, suggest ABG and consideration of more acute care observation (ie. ICU) - Diet as tolerated - Obtain serum lactic acid given diffuse abdominal pain - Obtain INR for MELD calculation - Follow up pulmonary recommendations - CT imaging from 12 days ago reviewed by me showing cirrhotic liver without associated mass lesion, trace abdominal ascites. Obtain abdominal XR for further evaluation of acute abdominal pain, r/o free air. Will continue to monitor patient clinical course.
[2017-03-01 15:08] LABS: HEMOGLOBIN 10.1 g/dL (12.0-16.0); MEAN CORPUSCULAR HEMOGLOBIN 33.8 pg (27.0-31.0); WHITE BLOOD COUNT 12.1 K/uL (4.8-10.8)
[2017-03-01 15:13] LABS: MEAN CELL VOLUME 102.2 fl (81.0-99.0)
[2017-03-01 15:22] LABS: INR 1.7 (0.9-1.2); PROTHROMBIN TIME 18.6 Seconds (9.8-13.1)
[2017-03-01 15:29] LABS: ALBUMIN 3.4 g/dL (3.5-5.0); ALT/SGPT 65 U/L (9-52); AST/SGOT 78 U/L (14-36); BLOOD UREA NITROGEN 15 mg/dl (7-17); CALCIUM 9.4 mg/dL (8.4-10.2); GFR AFRICAN-AMERICAN > 60; GFR NON-AFRICAN AMERICAN > 60
[2017-03-01] MEDS ORDERED: Levalbuterol 1.25 MG/3 ML Inhal Soln UD INH ONE (15:30)
[2017-03-01] MEDS: Levalbuterol 0.63 MG/3 ML Inhal Soln UD INH PRN ×2 (15:35→15:50)
[2017-03-01 15:36] LABS: ABG ALLEN TEST YES; ARTERIAL BLOOD GAS HCO3 29.4 mmol/L (21-28); ARTERIAL BLOOD GAS HEMOGLOBIN 10.7 g/dL (11.7-17.4); ARTERIAL BLOOD GAS O2 CAPACITY 14.6 mL/dL (16-24); ARTERIAL BLOOD GAS O2 CONTENT 14.2 ML/dL (15-23); ARTERIAL BLOOD GAS O2 SAT 97.4 % (95-98); ARTERIAL BLOOD GAS PCO2 51 mm/Hg (35-45); ARTERIAL BLOOD GAS PO2 73 mm/Hg (80-100); ARTERIAL BLOOD GAS TCO2 33.2 mmol/L (22-28)
[2017-03-01 15:37] LABS: ALB/GLOB RATIO 0.8 (1.0-2.1)
--- NOTE | 2017-03-01 15:40 | PCM.RRT ---
<Veronica Ahn - Last Filed: 03/01/17 16:41> PCAT INSTRUCTOR Nurse Assessment - Ventilator Settings FIO2 (% Oxygen): 60 I.Reason for PCAT INSTRUCTOR - A) Acute Change in Patient: Subjective: PCAT INSTRUCTOR call time: 15:24 PCAT INSTRUCTOR arrival time: 15:25 PCAT INSTRUCTOR location: [facility] PCAT INSTRUCTOR Vitals: T 98.5 HR 107 BP 165/89 RR 30 O2 96 RA S- PCAT INSTRUCTOR called by RN after patient started complaining of shortness of breath while lying in bed on high flow O2 NC. Five minutes after PCAT INSTRUCTOR called, patient began to complain of chest pain. O- HEENT: atraumatic, normocephalic Cardio: S1-S2, regular rate and rhythm Resp: (+) Wheezing, rhonchi, accessory muscle use Abdomen: generalized tenderness, guarding Extremities: (-) calf tenderness, swelling Neuro: AAOx3 PCAT INSTRUCTOR Interventions: -Solu-Medrol, Xopenex -ABG, troponin, lactic acid ABG: pCO2 51, pO2 73, pH 7.40 -12-lead EKG: no acute interval changes; poor reading of EKG due to patient moving -Nitroglycerin SL -Morphine 2mg IVP x 2 doses Repeat vitals: T 98 HR 86 BP 158/87 RR 27 O2 97 RA A/P: 51 y/o female with PMHx of COPD, morbid obesity, cirrhosis and asthma with acute episode of shortness of breath, likely secondary to COPD -start on bipap machine -Solu Medrol dose increased to 80mg q6 -chest, abdomen, pelvis CT -PMD Dr. Lopez made aware PCAT INSTRUCTOR end time: 16:12 PCAT INSTRUCTOR Software Engineer Developer: Hospitalist Dr. Katia Isidro PCAT INSTRUCTOR Residents: Jalen PGY-3, Josué PGY-2, Althea PGY-2, Jimy PGY-1 <Katia Isidro - Last Filed: 03/02/17 11:44> PCAT INSTRUCTOR Nurse Assessment - Vital Signs Vital Signs: Rapid Response Vital Sign Blood Pressure 165/89 Pulse Rate 105 Respiratory Rate 30 Temperature 98 F Oxygen Saturation 96 - Vital Signs at end of PCAT INSTRUCTOR Vital Signs at end of PCAT INSTRUCTOR: Rapid Response End Vital Sign Blood Pressure 158/87 Pulse Rate 86 Respiratory Rate 27 Temperature 98 F O2 Sat by Pulse Oximetry 97 Attending/Attestation - Attestation I have personally seen and examined this patient.: Yes I have fully participated in the care of the patient.: Yes I have reviewed all pertinent clinical information, including history, physical exam and plan: Yes Notes (Text): 03/02/17 11:43 CRITICAL CARE TIME 60 MIN SEEN EXAMINED DISCUSSED WITH RESIDENT. AGREE WITH FINDINGS AND PLAN ABOVE. d/w family and staff, CXR, ABG, Pox, interpret CO, lab/study all reviewed.
[2017-03-01] MEDS ORDERED: Iohexol 240 (50 ml) PO STA (15:55)
--- NOTE | 2017-03-01 18:25 | RAD ---
HISTORY: abd pain COMPARISON: No prior. FINDINGS: BOWEL: Grossly limited examination. Mildly dilated small bowel loops are seen in the right abdomen, up to 4 cm diameter. Findings may reflect early mechanical small bowel obstruction. BONES: Normal. OTHER FINDINGS: No hepatic or splenic enlargement. No masses or abnormal calcifications. IMPRESSION: Findings concerning for early mechanical small bowel obstruction versus ileus. Limited examination.
--- NOTE | 2017-03-01 18:26 | RAD ---
HISTORY: ams COMPARISON: 02/27/2017 FINDINGS: LUNGS: Left upper lobe bandlike opacity consistent with atelectasis versus scar. New linear atelectasis at medial right lung base. No acute infiltrate. PLEURA: No significant pleural effusion identified, no pneumothorax apparent. CARDIOVASCULAR: Mild congestive change. OSSEOUS STRUCTURES: Multiple healed right rib fractures. VISUALIZED UPPER ABDOMEN: Normal. OTHER FINDINGS: None. IMPRESSION: No acute infiltrate.
[2017-03-01] MEDS: Levalbuterol 0.63 MG/3 ML Inhal Soln UD INH SCH ×2 (19:37→22:18)
[2017-03-01] MEDS: Sodium Chloride 0.45% 1,000 ML IV SCH (22:20)
--- NOTE | 2017-03-02 04:24 | CP.PCM.PCO ---
Physician Communication Note - Physician Communication Note Physician Communication Note: Paged for patient agitation, attempting to remove BIPAP Assessment & Plan - Assessment and Plan (Free Text) Assessment: 51 yr old F with COPD on BIPAP seen and examined at bedside. Patient is uncooperative, has repeated attempts to remove BIPAP but desaturates to the low 80's. Nurse and aid at bedside offer constant redirection which patient ignores. Plan: Ativan 1mg IVP ordered. Patient being monitored. - Date & Time Date: 03/02/17 Time: 04:25
[2017-03-02] MEDS: Albuterol-Ipratrop 3 mg / 0.5 (3 ml) UD INH SCH ×5 (05:20→20:04)
[2017-03-02] MEDS: Levalbuterol 0.63 MG/3 ML Inhal Soln UD INH SCH ×4 (07:51→20:19)
--- NOTE | 2017-03-02 08:18 | CP.PCM.PN ---
Subjective - Date & Time of Evaluation Date of Evaluation: 03/02/17 Time of Evaluation: 07:40 - Subjective Subjective: General surgery consult note for Dr. Anastasia Espino, PGY-1 Pt S & E at bedside. per nursing, pt with agitation overnight, non compliance with Bipap. Ativan administered without allleviation of symptoms. Pt with de-saturation with off Bipap and on HiFlow-unable to obtain CT ab due to respiratory requirements. Pt with agitation this AM, not responding to questions. Per sitter, pt with agitation and attempting to remove Bipap mask overnight, no indications of abdominal pain. Objective - Vital Signs/Intake and Output Vital Signs (last 24 hours): Temp Pulse Resp BP Pulse Ox 98.1 F 101 H 20 122/67 100 03/02/17 08:14 03/02/17 08:14 03/02/17 08:14 03/02/17 08:14 03/02/17 08:14 - Medications Medications: Current Medications Acetaminophen (Tylenol 325mg Tab) 650 mg PO Q6H PRN PRN Reason: Pain, Mild (1-3) Last Admin: 02/28/17 16:12 Dose: 650 mg Acetaminophen (Tylenol 325mg Tab) 650 mg PO Q6H PRN PRN Reason: Fever >100.4 F Albuterol/Ipratropium (Duoneb 3 Mg/0.5 Mg (3 Ml) Ud) 3 ml INH RQ4 PRN PRN Reason: Shortness of Breath Last Admin: 02/28/17 05:24 Dose: 3 ml Albuterol/Ipratropium (Duoneb 3 Mg/0.5 Mg (3 Ml) Ud) 3 ml INH RQ4 PRN PRN Reason: Shortness of Breath Albuterol/Ipratropium (Duoneb 3 Mg/0.5 Mg (3 Ml) Ud) 3 ml INH RQ4 [facility] Last Admin: 03/02/17 05:20 Dose: 3 ml Clonidine HCl (Catapres) 0.5 mg PO BID PRN PRN Reason: Agitation Docusate Sodium (Colace) 100 mg PO BID PRN PRN Reason: Constipation Enoxaparin Sodium (Lovenox) 40 mg SC DAILY [facility] PRN Reason: Protocol Last Admin: 03/01/17 08:28 Dose: 40 mg Folic Acid (Folic Acid) 1 mg PO DAILY [facility] Last Admin: 03/01/17 08:27 Dose: 1 mg Sodium Chloride (Sodium Chloride 0.45%) 1,000 mls @ 75 mls/hr IV .[id number] [facility] Stop: 03/02/17 19:29 Last Admin: 03/01/17 22:20 Dose: 75 mls/hr Levalbuterol HCl (Xopenex) 0.63 mg INH Q3 [facility] Last Admin: 03/02/17 07:51 Dose: 0.63 mg Levofloxacin/Dextrose (Levaquin 750mg) 750 mg IVPB DAILY [facility] Lidocaine (Lidoderm) 1 ea TD DAILY [facility] Last Admin: 03/01/17 08:28 Dose: 1 ea Methylprednisolone (Solu-Medrol) 80 mg IV Q6 [facility] Last Admin: 03/02/17 04:35 Dose: 80 mg Multivitamins/Minerals (Therapeutic-M Tab) 1 tab PO DAILY [facility] Last Admin: 03/01/17 08:31 Dose: 1 tab Nystatin (Mycostatin Cream) 1 applic TOP TID [facility] Last Admin: 03/01/17 16:36 Dose: 1 appl Nystatin (Nystop Topical Powder) 1 applic TOP QID [facility] Last Admin: 03/01/17 22:17 Dose: 1 applic Pantoprazole Sodium (Protonix Inj) 40 mg IVP DAILY [facility] Last Admin: 03/01/17 13:19 Dose: 40 mg Fluticasone/Salmeterol (Advair Diskus 250/50) 1 puff IH Q12 [facility] Last Admin: 03/01/17 22:16 Dose: 1 puff Thiamine HCl (Vitamin B1 Tab) 100 mg PO DAILY [facility] Last Admin: 03/01/17 08:30 Dose: 100 mg - Labs Labs: 03/01/17 15:00 03/01/17 15:00 PT 18.6 Seconds (9.8-13.1) H 03/01/17 15:00 INR 1.7 (0.9-1.2) H 03/01/17 15:00 APTT 33.0 Seconds (25.6-37.1) 03/01/17 15:00 - Constitutional Appears: Non-toxic, No Acute Distress - Head Exam Head Exam: ATRAUMATIC, NORMAL INSPECTION, NORMOCEPHALIC - Eye Exam Eye Exam: EOMI, Normal appearance Additional comments: Bipap in place - Neck Exam Neck Exam: Normal Inspection - Respiratory Exam Respiratory Exam: NORMAL BREATHING PATTERN - Cardiovascular Exam Cardiovascular Exam: REGULAR RHYTHM, +S1, +S2 - GI/Abdominal Exam GI & Abdominal Exam: Guarding (epigastric), Soft. absent: Distended (obese), Firm, Mass, Rebound - Extremities Exam Extremities Exam: absent: Pedal Edema - Neurological Exam Neurological Exam: Alert, Awake. absent: Oriented x3 - Psychiatric Exam Psychiatric exam: Agitated - Skin Skin Exam: Rash (over distal upper extremities and pannus of abdomen; erythematous rash in intertriginous areas), Warm. absent: Normal Color Assessment and Plan - Assessment and Plan (Free Text) Assessment: 51F w/multiple co-morbidities consulted for abdominal pain, currently requiring Bipap Plan: FU CT ab when obtainable Lipase 73 Will follow Further recs when imaging available Will FLORENCE attending Kenzie, PGY-1
[2017-03-02 08:24] LABS: HEMOGLOBIN 9.1 g/dL (12.0-16.0); MEAN CELL VOLUME 104.4 fl (81.0-99.0); MEAN CORPUSCULAR HGB CONC 31.7 g/dL (33.0-37.0); RBC 2.77 Mil/uL (3.80-5.20); RED CELL DISTRIBUTION WIDTH 17.1 % (11.5-14.5); WHITE BLOOD COUNT 13.8 K/uL (4.8-10.8)
--- NOTE | 2017-03-02 08:24 | CARD ---
APPROVED REPORT EKG Measurement Heart [id number] <Conclusion> Sinus tachycardia with occasional premature ventricular complexes Anterior infarct, age undetermined Abnormal ECG
[2017-03-02 08:34] LABS: ALB/GLOB RATIO 0.7 (1.0-2.1); ALT/SGPT 61 U/L (9-52); AST/SGOT 67 U/L (14-36); BLOOD UREA NITROGEN 19 mg/dl (7-17); CALCIUM 9.1 mg/dL (8.4-10.2); GFR AFRICAN-AMERICAN > 60; GFR NON-AFRICAN AMERICAN > 60
[2017-03-02 08:39] LABS: INR 1.7 (0.9-1.2); PARTIAL THROMBOPLASTIN TIME 30.4 Seconds (25.6-37.1); PROTHROMBIN TIME 19.5 Seconds (9.8-13.1)
--- NOTE | 2017-03-02 08:59 | CP.PCM.PN ---
Subjective - Date & Time of Evaluation Date of Evaluation: 03/02/17 Time of Evaluation: 07:15 - Subjective Subjective: Patient seen and examined bedside with Dr gama. Patient on Bipap, lethargic, and with periods of agitation, trying to take out the O2 mask. Afebrile. wheezing present. Abd TD to palpation. XR possible paralytic illeus, unable to do CT abd while pt on Bipap. Pulmunology consult pending. ICU Attending Dr Giang consulted on the case. CXR stat suggested. Objective - Vital Signs/Intake and Output Vital Signs (last 24 hours): Temp Pulse Resp BP Pulse Ox 98.1 F 99 H 20 122/67 100 03/02/17 08:14 03/02/17 08:24 03/02/17 08:14 03/02/17 08:14 03/02/17 08:14 - Medications Medications: Current Medications Acetaminophen (Tylenol 325mg Tab) 650 mg PO Q6H PRN PRN Reason: Pain, Mild (1-3) Last Admin: 02/28/17 16:12 Dose: 650 mg Acetaminophen (Tylenol 325mg Tab) 650 mg PO Q6H PRN PRN Reason: Fever >100.4 F Albuterol/Ipratropium (Duoneb 3 Mg/0.5 Mg (3 Ml) Ud) 3 ml INH RQ4 PRN PRN Reason: Shortness of Breath Last Admin: 02/28/17 05:24 Dose: 3 ml Albuterol/Ipratropium (Duoneb 3 Mg/0.5 Mg (3 Ml) Ud) 3 ml INH RQ4 PRN PRN Reason: Shortness of Breath Albuterol/Ipratropium (Duoneb 3 Mg/0.5 Mg (3 Ml) Ud) 3 ml INH RQ4 [facility] Last Admin: 03/02/17 05:20 Dose: 3 ml Clonidine HCl (Catapres) 0.5 mg PO BID PRN PRN Reason: Agitation Enoxaparin Sodium (Lovenox) 40 mg SC DAILY [facility] PRN Reason: Protocol Last Admin: 03/01/17 08:28 Dose: 40 mg Folic Acid (Folic Acid) 1 mg PO DAILY [facility] Last Admin: 03/01/17 08:27 Dose: 1 mg Sodium Chloride (Sodium Chloride 0.45%) 1,000 mls @ 75 mls/hr IV .[id number] [facility] Stop: 03/02/17 19:29 Last Admin: 03/01/17 22:20 Dose: 75 mls/hr Levofloxacin/Dextrose (Levaquin 750mg) 750 mg in 150 mls @ 150 mls/hr IVPB DAILY [facility] Lactulose (Enulose) 20 gm PO QID [facility] Levalbuterol HCl (Xopenex) 0.63 mg INH Q3 [facility] Last Admin: 03/02/17 07:51 Dose: 0.63 mg Lidocaine (Lidoderm) 1 ea TD DAILY [facility] Last Admin: 03/01/17 08:28 Dose: 1 ea Methylprednisolone (Solu-Medrol) 80 mg IV Q6 [facility] Last Admin: 03/02/17 04:35 Dose: 80 mg Multivitamins/Minerals (Therapeutic-M Tab) 1 tab PO DAILY [facility] Last Admin: 03/01/17 08:31 Dose: 1 tab Nystatin (Mycostatin Cream) 1 applic TOP TID [facility] Last Admin: 03/01/17 16:36 Dose: 1 appl Nystatin (Nystop Topical Powder) 1 applic TOP QID [facility] Last Admin: 03/01/17 22:17 Dose: 1 applic Pantoprazole Sodium (Protonix Inj) 40 mg IVP DAILY [facility] Last Admin: 03/01/17 13:19 Dose: 40 mg Rifaximin (Xifaxan) 550 mg PO BID [facility] PRN Reason: Protocol Fluticasone/Salmeterol (Advair Diskus 250/50) 1 puff IH Q12 [facility] Last Admin: 03/01/17 22:16 Dose: 1 puff Thiamine HCl (Vitamin B1 Tab) 100 mg PO DAILY [facility] Last Admin: 03/01/17 08:30 Dose: 100 mg - Labs Labs: 03/02/17 08:11 03/02/17 08:11 PT 19.5 Seconds (9.8-13.1) H 03/02/17 08:11 INR 1.7 (0.9-1.2) H 03/02/17 08:11 APTT 30.4 Seconds (25.6-37.1) 03/02/17 08:11 - Constitutional Appears: In Acute Distress (from SOB), Agitated, Other (agitation alternated with lethargy) - Head Exam Head Exam: ATRAUMATIC, NORMOCEPHALIC - Eye Exam Eye Exam: Normal appearance - ENT Exam ENT Exam: Mucous Membranes Moist - Respiratory Exam Respiratory Exam: Rales, Wheezes Additional comments: bibasal - Cardiovascular Exam Cardiovascular Exam: REGULAR RHYTHM, +S1, +S2 - GI/Abdominal Exam GI & Abdominal Exam: Guarding, Tenderness, Diminished Bowel Sounds, Hypoactive Bowel Sounds, Rebound - Extremities Exam Extremities Exam: absent: Pedal Edema, Tenderness - Neurological Exam Additional comments: agitated while on abdominal pain. alternates with lethargy - Skin Skin Exam: Rash (B/l arms internal side ) Assessment and Plan - Assessment and Plan (Free Text) Plan: Assessment/Plan 1) AMS -may be secondary to hepatic encephalopaty or respiratory distress -Gi Consult appreciated: C/w lactulose,rifaxamin 2) COPD exacerbation -duoneb -solumedrol -Bipap -levaquin -Studio Manager consult suggested 3) B/L pneumonia Left upper lobe linear atelectasis versus infiltrate. nonspecific hazy appeareance of the right lung base -Levaquin 750 mg IV 4) Abdominal pain -Xr Abd possible illeus vs small bowel obstruction -Surgery consult appreciated -CT abd when pt stable 5) Cirrhosis -recent CT liver did not reveal any previous ascites, only cirrhotic changes 6) DVT Prophylaxis -lovenox
[2017-03-02] MEDS ORDERED: levoFLOXacin 750 mg in D5W 750 MG/150 ML BAG IVPB SCH ×2 (09:00→09:45)
[2017-03-02] MEDS ORDERED: levoFLOXacin 750 mg in D5W 150 ML BAG IVPB SCH (09:00)
--- NOTE | 2017-03-02 09:02 | CP.PCM.PN ---
Subjective - Date & Time of Evaluation Date of Evaluation: 03/02/17 Time of Evaluation: 08:56 - Subjective Subjective: RFV: CIrrhosis S: Patient is short of breath, on bipap, and confused. She is not following commands or conversant. She is restless in bed, continuously pulling at things at trying to get out of bed. Objective - Vital Signs/Intake and Output Vital Signs (last 24 hours): Temp Pulse Resp BP Pulse Ox 98.1 F 99 H 20 122/67 100 03/02/17 08:14 03/02/17 08:24 03/02/17 08:14 03/02/17 08:14 03/02/17 08:14 - Medications Medications: Current Medications Acetaminophen (Tylenol 325mg Tab) 650 mg PO Q6H PRN PRN Reason: Pain, Mild (1-3) Last Admin: 02/28/17 16:12 Dose: 650 mg Acetaminophen (Tylenol 325mg Tab) 650 mg PO Q6H PRN PRN Reason: Fever >100.4 F Albuterol/Ipratropium (Duoneb 3 Mg/0.5 Mg (3 Ml) Ud) 3 ml INH RQ4 PRN PRN Reason: Shortness of Breath Last Admin: 02/28/17 05:24 Dose: 3 ml Albuterol/Ipratropium (Duoneb 3 Mg/0.5 Mg (3 Ml) Ud) 3 ml INH RQ4 PRN PRN Reason: Shortness of Breath Albuterol/Ipratropium (Duoneb 3 Mg/0.5 Mg (3 Ml) Ud) 3 ml INH RQ4 [facility] Last Admin: 03/02/17 05:20 Dose: 3 ml Clonidine HCl (Catapres) 0.5 mg PO BID PRN PRN Reason: Agitation Enoxaparin Sodium (Lovenox) 40 mg SC DAILY [facility] PRN Reason: Protocol Last Admin: 03/01/17 08:28 Dose: 40 mg Folic Acid (Folic Acid) 1 mg PO DAILY [facility] Last Admin: 03/01/17 08:27 Dose: 1 mg Sodium Chloride (Sodium Chloride 0.45%) 1,000 mls @ 75 mls/hr IV .[id number] [facility] Stop: 03/02/17 19:29 Last Admin: 03/01/17 22:20 Dose: 75 mls/hr Levofloxacin/Dextrose (Levaquin 750mg) 750 mg in 150 mls @ 150 mls/hr IVPB DAILY [facility] Lactulose (Enulose) 20 gm PO QID [facility] Levalbuterol HCl (Xopenex) 0.63 mg INH Q3 [facility] Last Admin: 03/02/17 07:51 Dose: 0.63 mg Lidocaine (Lidoderm) 1 ea TD DAILY [facility] [place] Last Admin: 03/01/17 08:28 Dose: 1 ea Methylprednisolone (Solu-Medrol) 80 mg IV Q6 [facility] Last Admin: 03/02/17 04:35 Dose: 80 mg Multivitamins/Minerals (Therapeutic-M Tab) 1 tab PO DAILY [facility] Last Admin: 03/01/17 08:31 Dose: 1 tab Nystatin (Mycostatin Cream) 1 applic TOP TID [facility] Last Admin: 03/01/17 16:36 Dose: 1 appl Nystatin (Nystop Topical Powder) 1 applic TOP QID [facility] [place] Last Admin: 03/01/17 22:17 Dose: 1 applic Pantoprazole Sodium (Protonix Inj) 40 mg IVP DAILY [facility] [place] Last Admin: 03/01/17 13:19 Dose: 40 mg Rifaximin (Xifaxan) 550 mg PO BID [facility] PRN Reason: Protocol Fluticasone/Salmeterol (Advair Diskus 250/50) 1 puff IH Q12 [facility] Last Admin: 03/01/17 22:16 Dose: 1 puff Thiamine HCl (Vitamin B1 Tab) 100 mg PO DAILY [facility] Last Admin: 03/01/17 08:30 Dose: 100 mg - Labs Labs: 03/02/17 08:11 03/02/17 08:11 PT 19.5 Seconds (9.8-13.1) H 03/02/17 08:11 INR 1.7 (0.9-1.2) H 03/02/17 08:11 APTT 30.4 Seconds (25.6-37.1) 03/02/17 08:11 - Constitutional Appears: Chronically Ill - Head Exam Head Exam: ATRAUMATIC, NORMOCEPHALIC - Eye Exam Eye Exam: Normal appearance. absent: Scleral icterus - ENT Exam ENT Exam: Normal Oropharynx - Respiratory Exam Respiratory Exam: Respiratory Distress - Cardiovascular Exam Cardiovascular Exam: +S1, +S2 - GI/Abdominal Exam GI & Abdominal Exam: Distended, Soft. absent: Tenderness - Neurological Exam Neurological Exam: Altered - Psychiatric Exam Psychiatric exam: Agitated - Skin Skin Exam: Dry, Normal Color, Warm Assessment and Plan - Assessment and Plan (Free Text) Assessment: 51 year old female with history of ETOH cirrhosis, COPD, obesity admitted with COPD exacerbation, also with altered mental status now. 1. Alcoholic cirrhosis 2. Hepatic encephalopathy Plan: - recommend restarting lactulose and rifaxamin (ordered) for encephalopathy - she is on bipap for mangagement of her COPD/respiratory distress as well as steroids and antibiotics - lactic acid was normal, lfts stable - slight leukocytosis probably from steroids - INR stable at 1.7 - recent abdominal imaging was unremarkable, will obtain abdominal US to r/o significant ascites that would need to be tapped, although she hasn't had this before and index of suspicion is low for this
[2017-03-02 09:35] LABS: ABG ALLEN TEST YES; ARTERIAL BLOOD GAS HCO3 29.3 mmol/L (21-28); ARTERIAL BLOOD GAS HEMOGLOBIN 9.9 g/dL (11.7-17.4); ARTERIAL BLOOD GAS O2 CAPACITY 13.7 mL/dL (16-24); ARTERIAL BLOOD GAS O2 CONTENT 13.7 ML/dL (15-23); ARTERIAL BLOOD GAS O2 SAT 99.8 % (95-98); ARTERIAL BLOOD GAS PCO2 68 mm/Hg (35-45); ARTERIAL BLOOD GAS PO2 123 mm/Hg (80-100); ARTERIAL BLOOD GAS TCO2 35.6 mmol/L (22-28)
[2017-03-02] MEDS: Multivitamin With Minerals Tab PO SCH (09:56)
[2017-03-02] MEDS: Sodium Chloride 0.45% 1,000 ML IV SCH (09:56)
[2017-03-02] MEDS: Fluticasone-Salmeterol 250-50mcg Diskus IH SCH ×2 (09:59→21:04)
[2017-03-02] MEDS: Enoxaparin 40 mg Syringe SC SCH (10:01)
[2017-03-02] MEDS: Lidocaine 5% Patch TD SCH (10:01)
--- NOTE | 2017-03-02 12:38 | CP.PCM.CON ---
History of Present Illness - History of Present Illness History of Present Illness: 51yo female, history of COPD, pneumonia, alcohol abuse, hepatic encephalopathy, cirrhosis, brought in by EMS for evaluation of shortness of breath while the patient was at her longterm. She denies any associated fever, chills, chest pain, abdominal pain, nausea, vomiting, or diarrhea. No other complaints. - Medical History PMH: Asthma, Bronchitis, COPD, Pneumonia Denies: Chronic Kidney Disease Other PMH: hepatic encephalopathy, cirrhosis Review of Systems - Review of Systems All systems: reviewed and no additional remarkable complaints except - Constitutional Constitutional: As Per HPI, Chills, Fever - EENT Eyes: absent: As Per HPI, Blind Spots, Blurred Vision, Change in Vision, Decreased Night Vision, Diplopia, Discharge, Dry Eye, Exophthalmos, Floaters, Irritation, Itchy Eyes, Loss of Peripheral Vision, Pain, Photophobia, Requires Corrective Lenses, Sees Flashes, Spots in Vision, Tunnel Vision, Other Visual Disturbances, Loss of Vision, Other Nose/Mouth/Throat: absent: As Per HPI, Epistaxis, Nasal Congestion, Nasal Discharge, Nasal Obstruction, Nasal Trauma, Nose Pain, Post Nasal Drip, Sinus Pain, Sinus Pressure, Bleeding Gums, Change in Voice, Dental Pain, Dry Mouth, Dysphagia, Halitosis, Hoarsness, Lip Swelling, Mouth Lesions, Mouth Pain, Odynophagia, Sore Throat, Throat Swelling, Tongue Swelling, Facial Pain, Neck Pain, Neck Mass, Other - Breasts Breasts: absent: As Per HPI, Change in Shape, Mass, Pain, Nipple Discharge, Nipple Inversion, Skin Changes, Swelling, Other - Cardiovascular Cardiovascular: absent: As Per HPI, Acrocyanosis, Chest Pain, Chest Pain at Rest , Chest Pain with Activity, Claudication, Diaphoresis, Dyspnea, Dyspnea on Exertion, Edema, Irregular Heart Rhythm, Pain Radiating to Arm/Neck/Jaw, Leg Edema, Leg Ulcers, Lightheadedness, Orthopnea, Palpitations, Paroxysmal Nocturnal Dyspnea, Pedal Edema, Radiating Pain, Rapid Heart Rate, Slow Heart Rate, Syncope, Other - Respiratory Respiratory: As Per HPI, Cough, Dyspnea. absent: Hemoptysis - Gastrointestinal Gastrointestinal: As Per HPI - Genitourinary Genitourinary: absent: As Per HPI, Change in Urinary Stream, Difficulty Urinating, Dysuria, Flank Pain, Hematuria, Pyuria, Nocturia, Urinary Incontinence, Urinary Frequency, Urinary Hesitance, Urinary Urgency, Voiding Freq/Small Amts, Freq UTI, Hx Renal/Bladder Calculi, Hx /Renal Surgery, Bladder Distension, Other - Reproductive: Female Reproductive:Female: absent: As Per HPI, Amenorrhea, Amenorrhea/ Control, Currently Menstual, Cycle <21 Days, Cycle >35 Days, Cycle Variable, Menses 1-7 Days, Menses >/= 8 Days, Menses Variable, Cycle > 4 Weeks Between, No Menses for 6 Months, Heavy Menses, Light Menses, Normal Menses, Spotting Between Cycles , S/P Hysterectomy, Menopausal, Post Menopausal, Premenarche, Abnormal Vaginal Bleeding, Dysmenorrhea, Dyspareunia, Genital Lesions, Genital Pruritis, Pelvic Pain, Prolapse Symptoms, Sexual Dysfunction, Vaginal Discharge, Vaginal Dryness , Vaginal Odor, Vaginal Pruritis, Other - Menstruation Menstruation: absent: As Per HPI, Amenorrhea, Amenorrhea/ Control, Currently Menstual, Cycle <21 Days, Cycle >35 Days, Cycle Variable, Menses 1-7 Days, Menses >/= 8 Days, Menses Variable, Cycle > 4 Weeks Between, No Menses for 6 Months, Heavy Menses, Light Menses, Normal Menses, Spotting Between Cycles , S/P Hysterectomy, Menopausal, Post Menopausal, Premenarche, Abnormal Vaginal Bleeding, Dysmenorrhea, Other - Musculoskeletal Musculoskeletal: absent: As Per HPI, Abnormal Gait, Arthralgias, Atrophy, Back Pain, Deformity, Joint Swelling, Limited Range of Motion, Loss of Height, Muscle Cramps, Muscle Weakness, Myalgias, Neck Pain, Numbness, Radiating Pain into Limb, Stiffness, Tingling, Other - Integumentary Integumentary: absent: As Per HPI, Acne, Alopecia, Bleeding Lesions, Change in Hair, Change in Nails, Change in Pigmentation, Changing Lesions, Dry Skin, Erythema, Furuncle, Hirsutism, Lesions, New Lesions, Non-Healing Lesions, Photosensitivity, Pruritus, Rash, Skin Pain, Skin Ulcer, Sores, Striae, Swelling , Unusual Bruising, Wounds, Jaundice, Other - Neurological Neurological: As Per HPI - Endocrine Endocrine: absent: As Per HPI, Change in Body Appearance, Change in Libido, Cold Intolorance, Deepening of Voice, Excessive Sweating, Fatigue, Flushing, Heat Intolorance, Increase in Ring/Shoe/Hat Size, Palpitations, Polydipsia, Polyphagia, Polyuria, Other - Hematologic/Lymphatic Hematologic: absent: As Per HPI, Easy Bleeding, Easy Bruising, Lymphadenopathy, Other Past Patient History - Infectious Disease Hx of Infectious Diseases: None - Tetanus Immunizations Tetanus Immunization: Unknown - Past Medical History & Family History Past Medical History?: Yes - Past Social History Alcohol: None Drugs: Denies - CARDIAC Hx Cardiac Disorders: No - PULMONARY Hx Asthma: Yes Hx Bronchitis: Yes Hx Chronic Obstructive Pulmonary Disease (COPD): Yes Hx Pneumonia: Yes - NEUROLOGICAL Hx Neurological Disorder: No - HEENT Hx HEENT Problems: No - RENAL Hx Chronic Kidney Disease: No - ENDOCRINE/METABOLIC Hx Endocrine Disorders: No - HEMATOLOGICAL/ONCOLOGICAL Hx Blood Disorders: No Hx AIDS: No Hx Human Immunodeficiency Virus (HIV): No - INTEGUMENTARY Hx Dermatological Problems: No - MUSCULOSKELETAL/RHEUMATOLOGICAL Hx Musculoskeletal Disorders: Yes Hx Back Pain: Yes (lower back pain ) Hx Falls: No - GASTROINTESTINAL Hx Gastrointestinal Disorders: Yes Hx Fatty Liver Disease: Yes - GENITOURINARY/GYNECOLOGICAL Hx Genitourinary Disorders: No - PSYCHIATRIC Hx Psychophysiologic Disorder: No Hx Substance Use: No - SURGICAL HISTORY Hx Surgeries: No - ANESTHESIA Hx Anesthesia: No Hx Anesthesia Reactions: No Meds Allergies/Adverse Reactions: Allergies Allergy/AdvReac Type Severity Reaction Status Date / Time No Known Allergies Allergy Verified 01/27/17 12:43 - Medications Medications: Current Medications Acetaminophen (Tylenol 325mg Tab) 650 mg PO Q6H PRN PRN Reason: Pain, Mild (1-3) Last Admin: 02/28/17 16:12 Dose: 650 mg Acetaminophen (Tylenol 325mg Tab) 650 mg PO Q6H PRN PRN Reason: Fever >100.4 F Albuterol/Ipratropium (Duoneb 3 Mg/0.5 Mg (3 Ml) Ud) 3 ml INH RQ4 PRN PRN Reason: Shortness of Breath Albuterol/Ipratropium (Duoneb 3 Mg/0.5 Mg (3 Ml) Ud) 3 ml INH RQ4 [facility] Last Admin: 03/02/17 11:13 Dose: 3 ml Clonidine HCl (Catapres) 0.5 mg PO BID PRN PRN Reason: Agitation Enoxaparin Sodium (Lovenox) 40 mg SC DAILY [facility] PRN Reason: Protocol Last Admin: 03/02/17 10:01 Dose: 40 mg Folic Acid (Folic Acid) 1 mg PO DAILY [facility] Last Admin: 03/02/17 09:54 Dose: Not Given Sodium Chloride (Sodium Chloride 0.45%) 1,000 mls @ 75 mls/hr IV .[id number] [facility] Stop: 03/02/17 19:29 Last Admin: 03/02/17 09:56 Dose: Not Given Levofloxacin/Dextrose (Levaquin 750mg) 750 mg in 150 mls @ 100 mls/hr IVPB DAILY [facility] Last Admin: 03/02/17 10:00 Dose: 100 mls/hr Lactulose (Enulose) 20 gm PO QID [facility] Last Admin: 03/02/17 09:54 Dose: Not Given Levalbuterol HCl (Xopenex) 0.63 mg INH Q3 [facility] Last Admin: 03/02/17 07:51 Dose: 0.63 mg Lidocaine (Lidoderm) 1 ea TD DAILY [facility] Last Admin: 03/02/17 10:01 Dose: Not Given Methylprednisolone (Solu-Medrol) 80 mg IV Q6 [facility] Last Admin: 03/02/17 10:02 Dose: 80 mg Morphine Sulfate (Morphine) 2 mg IVP Q4 PRN PRN Reason: Pain, severe (8-10) Last Admin: 03/02/17 09:49 Dose: 2 mg Multivitamins/Minerals (Therapeutic-M Tab) 1 tab PO DAILY [facility] Last Admin: 03/02/17 09:56 Dose: Not Given Nystatin (Mycostatin Cream) 1 applic TOP TID [facility] Last Admin: 03/02/17 09:59 Dose: 1 appl Nystatin (Nystop Topical Powder) 1 applic TOP QID [facility] Last Admin: 03/02/17 09:59 Dose: 1 applic Pantoprazole Sodium (Protonix Inj) 40 mg IVP DAILY [facility] Last Admin: 03/02/17 10:01 Dose: 40 mg Rifaximin (Xifaxan) 550 mg PO BID [facility] PRN Reason: Protocol Last Admin: 03/02/17 09:55 Dose: Not Given Fluticasone/Salmeterol (Advair Diskus 250/50) 1 puff IH Q12 [facility] Last Admin: 03/02/17 09:59 Dose: Not Given Thiamine HCl (Vitamin B1 Tab) 100 mg PO DAILY [facility] Last Admin: 03/02/17 09:55 Dose: Not Given Physical Exam - Constitutional Appears: Confused, Cachectic, Chronically Ill - Head Exam Head Exam: NORMOCEPHALIC - Eye Exam Eye Exam: PERRL. absent: Scleral icterus Pupil Exam: absent: NORMAL ACCOMODATION - ENT Exam ENT Exam: Mucous Membranes Dry, Normal External Ear Exam - Neck Exam Neck exam: Negative for: Lymphadenopathy, Thyromegaly - Respiratory Exam Respiratory Exam: Decreased Breath Sounds, Rhonchi - Cardiovascular Exam Cardiovascular Exam: REGULAR RHYTHM, +S1, +S2 - GI/Abdominal Exam GI & Abdominal Exam: Diminished Bowel Sounds, Soft. absent: Tenderness - Rectal Exam Rectal Exam: Deferred - Exam Exam: NORMAL INSPECTION - Extremities Exam Extremities exam: Positive for: pedal pulses present. Negative for: pedal edema , tenderness - Back Exam Back exam: absent: CVA tenderness (L), CVA tenderness (R) - Neurological Exam Neurological exam: Alert, Altered, CN II-XII Intact - Psychiatric Exam Psychiatric exam: Depressed Results - Vital Signs Recent Vital Signs: Last Vital Signs Temp 98.1 F 03/02/17 08:14 Pulse 88 03/02/17 11:41 Resp 20 03/02/17 08:14 BP 122/67 03/02/17 08:14 Pulse Ox 100 03/02/17 08:14 - Labs Result Diagrams: 03/02/17 08:11 03/02/17 08:11 Labs: Laboratory Results - last 24 hr 03/01/17 03/01/17 03/01/17 15:00 15:00 15:00 WBC 12.1 H RBC 3.00 L Hgb 10.1 L Hct 30.7 L MCV 102.2 H D MCH 33.8 H MCHC 33.0 RDW 17.0 H Plt Count 357 PT INR APTT pCO2 pO2 HCO3 ABG pH ABG Total CO2 ABG O2 Saturation ABG O2 Content ABG Base Excess ABG Hemoglobin ABG Carboxyhemoglobin POC ABG HHb (Measured) ABG Methemoglobin ABG O2 Capacity Dick Test A-a O2 Difference Hgb O2 Saturation FiO2 PEEP CPAP Sodium 141 Potassium 3.8 Chloride 102 Carbon Dioxide 31 H Anion Gap 12 BUN 15 Creatinine 0.7 Est GFR ( Amer) > 60 Est GFR (Non-Af Amer) > 60 Random Glucose 132 H Lactic Acid Calcium 9.4 Total Bilirubin 2.0 H AST 78 H ALT 65 H Alkaline Phosphatase 182 H Ammonia 42 D Troponin I < 0.0120 NT-Pro-B Natriuret Pep Total Protein 7.9 Albumin 3.4 L Globulin 4.5 H Albumin/Globulin Ratio 0.8 L Lipase 03/01/17 03/01/17 03/01/17 15:00 15:30 16:43 WBC RBC Hgb Hct MCV MCH MCHC RDW Plt Count PT 18.6 H INR 1.7 H APTT 33.0 pCO2 51 H pO2 73 L HCO3 29.4 H ABG pH 7.40 ABG Total CO2 33.2 H ABG O2 Saturation 97.4 ABG O2 Content 14.2 L ABG Base Excess 5.8 H ABG Hemoglobin 10.7 L ABG Carboxyhemoglobin 2.2 H POC ABG HHb (Measured) 2.5 ABG Methemoglobin 1.6 ABG O2 Capacity 14.6 L Dick Test Yes A-a O2 Difference 291.0 Hgb O2 Saturation 93.7 L FiO2 60.0 PEEP CPAP Sodium Potassium Chloride Carbon Dioxide Anion Gap BUN Creatinine Est GFR ( Amer) Est GFR (Non-Af Amer) Random Glucose Lactic Acid 1.5 Calcium Total Bilirubin AST ALT Alkaline Phosphatase Ammonia Troponin I NT-Pro-B Natriuret Pep Total Protein Albumin Globulin Albumin/Globulin Ratio Lipase 03/02/17 03/02/17 03/02/17 05:00 08:11 08:11 WBC 13.8 H RBC 2.77 L Hgb 9.1 L Hct 28.9 L MCV 104.4 H D MCH 33.0 H MCHC 31.7 L RDW 17.1 H Plt Count 203 D PT 19.5 H INR 1.7 H APTT 30.4 pCO2 pO2 HCO3 ABG pH ABG Total CO2 ABG O2 Saturation ABG O2 Content ABG Base Excess ABG Hemoglobin ABG Carboxyhemoglobin POC ABG HHb (Measured) ABG Methemoglobin ABG O2 Capacity Dick Test A-a O2 Difference Hgb O2 Saturation FiO2 PEEP CPAP Sodium Potassium Chloride Carbon Dioxide Anion Gap BUN Creatinine Est GFR ( Amer) Est GFR (Non-Af Amer) Random Glucose Lactic Acid Calcium Total Bilirubin AST ALT Alkaline Phosphatase Ammonia Troponin I NT-Pro-B Natriuret Pep Total Protein Albumin Globulin Albumin/Globulin Ratio Lipase 73 03/02/17 03/02/17 03/02/17 08:11 08:11 09:34 WBC RBC Hgb Hct MCV MCH MCHC RDW Plt Count PT INR APTT pCO2 68 H pO2 123 H HCO3 29.3 H ABG pH 7.30 L ABG Total CO2 35.6 H ABG O2 Saturation 99.8 H ABG O2 Content 13.7 L ABG Base Excess 5.6 H ABG Hemoglobin 9.9 L ABG Carboxyhemoglobin 1.8 H POC ABG HHb (Measured) 0.2 ABG Methemoglobin 1.1 ABG O2 Capacity 13.7 L Dick Test Yes A-a O2 Difference 362.0 Hgb O2 Saturation 96.9 FiO2 80.0 PEEP 5 CPAP 10 Sodium 140 Potassium 3.8 Chloride 102 Carbon Dioxide 33 H Anion Gap 9 L BUN 19 H Creatinine 0.8 Est GFR ( Amer) > 60 Est GFR (Non-Af Amer) > 60 Random Glucose 160 H Lactic Acid 1.0 Calcium 9.1 Total Bilirubin 1.8 H AST 67 H ALT 61 H Alkaline Phosphatase 146 H Ammonia Troponin I NT-Pro-B Natriuret Pep Total Protein 7.3 Albumin 3.0 L Globulin 4.2 H Albumin/Globulin Ratio 0.7 L Lipase 03/02/17 10:15 WBC RBC Hgb Hct MCV MCH MCHC RDW Plt Count PT INR APTT pCO2 pO2 HCO3 ABG pH ABG Total CO2 ABG O2 Saturation ABG O2 Content ABG Base Excess ABG Hemoglobin ABG Carboxyhemoglobin POC ABG HHb (Measured) ABG Methemoglobin ABG O2 Capacity Dick Test A-a O2 Difference Hgb O2 Saturation FiO2 PEEP CPAP Sodium Potassium Chloride Carbon Dioxide Anion Gap BUN Creatinine Est GFR ( Amer) Est GFR (Non-Af Amer) Random Glucose Lactic Acid Calcium Total Bilirubin AST ALT Alkaline Phosphatase Ammonia Troponin I NT-Pro-B Natriuret Pep 1460 H Total Protein Albumin Globulin Albumin/Globulin Ratio Lipase Assessment & Plan (1) Acute and chronic respiratory failure with hypercapnia Status: Acute (2) Hepatic encephalopathy Status: Acute - Assessment and Plan (Free Text) Assessment: UTI with MDRO's likely colonized fever / resp insuff Hx cirrhosis/ severe copd start Tygacil repeat urine cultures
--- NOTE | 2017-03-02 14:58 | RAD ---
PROCEDURE: CHEST RADIOGRAPH, 1 VIEW HISTORY: copd COMPARISON: 03/01/2017 FINDINGS: LUNGS: Shallow lung volumes. Bilateral patchy all airspace opacities suggested -not seen as such on prior studies and or increasing current conspicuity. Some of the findings on the right may be attributed to right pleural-parenchymal reaction overlying deformed old healed right rib fractures Linear discoid atelectasis lateral left mid to lower lung zone -slightly increased in conspicuity PLEURA: No pneumothorax or pleural fluid seen. Pleural thickening reaction superimposed on deformed old healed right rib fractures. CARDIOVASCULAR: Mild cardiomegaly. Unfolded thoracic aorta -the superior mediastinal fullness may in part be due to technique and unfolded ectatic brachiocephalic vessels. No interval tracheal deviation suggested ; this appearance is similar to 02/17/2017 OSSEOUS STRUCTURES: Old healed and deformed right rib fractures VISUALIZED UPPER ABDOMEN: Normal. OTHER FINDINGS: None. IMPRESSION: Small patchy bilateral pulmonary opacities/ small patchy infiltrates suspect no one area of dense consolidation appreciated. Current appearance is an interval change. Left lateral discoid atelectasis and/or scarring -mid to inferior lung zone-similar Prominent cardiomediastinal silhouette similar since 02/17/2017
--- NOTE | 2017-03-02 17:32 | CP.CCUPN ---
CCU Subjective - Physician Review Events Since Last Encounter (Free Text): 03/02/17 18:52 The patient was Seen/interviewed and examined by me at the bedside, Medical records reviewed and Management issues were discussed and formulated with the house staff. Events reviewed 51 Years old Female with PMHx of Asthma, Bronchitis, COPD, Pneumonia, alcohol abuse, cirrhosis and hepatic encephalopathy Who was brought in by EMS to Emergency department for evaluation of shortness of breath while the patient was at her retirement. She was admitted to the telemetry for management of COPD exacerbation from B/L pneumonia ICU evaluation called for lethargy, ABG done with hypercabnia, placed on BIPAP, Fluid discontinue for possible congesion Also had Abd pain and XR showed possible early obstruction, NPO and surgery consulted Repeat ABG 7.11/109/62/37/92.5% Patient transferred to the ICU and semi-emergently orally intubated CCU Objective - Vital Signs / Intake & Output Vital Signs (Last 4 hours): Vital Signs Temp Pulse Resp BP Pulse Ox 03/02/17 16:04 97.3 F L 110 H 18 139/89 95 03/02/17 15:41 112 H - Physical Exam Physical Exam Limitations: Positive for: Altered Mental Status, Clinical Condition, Uncooperative Head: Positive for: Atraumatic, Normocephalic. Negative for: Tenderness, Contusion, Swelling, Ecchymosis Pupils: Positive for: PERRL, Sluggish Conjunctiva: Positive for: Normal. Negative for: Injected, Icteric Ears: Positive for: Normal Mouth: Positive for: Moist Mucous Membranes Neck: Positive for: Normal Range of Motion, Trachea Midline. Negative for: Meningeal Signs, MIDLINE TENDERNESS, Paraspinal Tenderness, JVD, Lymphadenopathy , Bruit, Other Respiratory/Chest: Positive for: Accessory Muscle Use, Decreased Breath Sounds, Rales, Rhonchi. Negative for: Good Air Exchange, Respiratory Distress Cardiovascular: Positive for: Regular Rate and Rhythm, Normal S1, S2, Peripheal Pulses Present, Tachycardic. Negative for: Murmurs, Irregular Rhythm Abdomen: Positive for: Normal Bowel Sounds, Peritoneal Signs. Negative for: Tenderness, Distention Back: Negative for: CVA Tenderness Upper Extremity: Positive for: Normal Inspection, NORMAL PULSES. Negative for: Cyanosis, Edema Lower Extremity: Positive for: Normal Inspection, NORMAL PULSES, Capillary Refill < 2 s. Negative for: Edema, CALF TENDERNESS Neurological: Positive for: Other (Lethargic) Skin: Positive for: Warm, Rashes - Medications Active Medications: Active Medications Generic Name Dose Route Start Last Admin Trade Name Freq PRN Reason Stop Dose Admin Acetaminophen 650 mg 02/28/17 15:28 02/28/17 16:12 Tylenol 325mg Tab PO 650 mg Q6H PRN Administration Pain, Mild (1-3) Acetaminophen 650 mg 02/28/17 15:28 Tylenol 325mg Tab PO Q6H PRN Fever >100.4 F Albuterol/Ipratropium 3 ml 02/28/17 15:28 Duoneb 3 Mg/0.5 Mg (3 Ml) Ud INH RQ4 PRN Shortness of Breath Albuterol/Ipratropium 3 ml 02/28/17 16:00 03/02/17 15:41 Duoneb 3 Mg/0.5 Mg (3 Ml) Ud INH 3 ml RQ4 [facility] Administration Clonidine HCl 0.5 mg 03/01/17 22:14 Catapres PO BID PRN Agitation Enoxaparin Sodium 40 mg 03/01/17 09:00 03/02/17 10:01 Lovenox SC 40 mg DAILY [facility] Administration Protocol Folic Acid 1 mg 03/01/17 09:00 03/02/17 09:54 Folic Acid PO Not Given DAILY [facility] Sodium Chloride 1,000 mls @ 75 mls/hr 03/01/17 19:30 03/02/17 09:56 Sodium Chloride 0.45% IV 03/02/17 19:29 Not Given .[id number] [facility] Tigecycline 50 mg/ Sodium 100 mls @ 100 mls/hr 03/03/17 05:00 Chloride IVPB Q12H [facility] Protocol Lactulose 20 gm 03/02/17 09:00 03/02/17 16:58 Enulose PO Not Given QID [facility] Levalbuterol HCl 0.63 mg 03/01/17 19:00 03/02/17 13:08 Xopenex INH 0.63 mg Q3 [facility] Administration Lidocaine 1 ea 03/01/17 09:00 03/02/17 10:01 Lidoderm TD Not Given DAILY [facility] Methylprednisolone 80 mg 03/01/17 16:04 03/02/17 17:14 Solu-Medrol IV 80 mg Q6 [facility] Administration Morphine Sulfate 2 mg 03/02/17 09:42 03/02/17 09:49 Morphine IVP 2 mg Q4 PRN Administration Pain, severe (8-10) Multivitamins/Minerals 1 tab 03/01/17 09:00 03/02/17 09:56 Therapeutic-M Tab PO Not Given DAILY [facility] Nystatin 1 applic 03/01/17 09:00 03/02/17 14:00 Mycostatin Cream TOP 1 appl TID [facility] Administration Nystatin 1 applic 03/01/17 09:00 03/02/17 14:00 Nystop Topical Powder TOP 1 applic QID [facility] Administration Pantoprazole Sodium 40 mg 03/01/17 13:00 03/02/17 10:01 Protonix Inj IVP 40 mg DAILY [facility] Administration Rifaximin 550 mg 03/02/17 09:00 03/02/17 17:15 Xifaxan PO Not Given BID [facility] Protocol Fluticasone/Salmeterol 1 puff 02/28/17 21:00 03/02/17 09:59 Advair Diskus 250/50 IH Not Given Q12 [facility] Thiamine HCl 100 mg 03/01/17 09:00 03/02/17 09:55 Vitamin B1 Tab PO Not Given DAILY [facility] - Patient Studies Lab Studies: Microbiology Studies 02/28/17 12:30 Urine Culture - Final Urine,Clean Catch Escherichia Coli Enterococcus Faecium 02/27/17 12:40 Blood Culture - Preliminary Blood NO GROWTH AFTER 48 HOURS 02/27/17 22:50 Blood Culture - Preliminary Blood NO GROWTH AFTER 48 HOURS Lab Studies 03/02/17 03/02/17 03/02/17 Range/Units 10:15 09:34 08:11 WBC (4.8-10.8) K/uL RBC (3.80-5.20) Mil/uL Hgb (12.0-16.0) g/dL Hct (34.0-47.0) % MCV (81.0-99.0) fl MCH (27.0-31.0) pg MCHC (33.0-37.0) g/dL RDW (11.5-14.5) % Plt Count (130-400) K/uL PT (9.8-13.1) Seconds INR (0.9-1.2) APTT (25.6-37.1) Seconds pCO2 68 H (35-45) mm/Hg pO2 123 H (80-100) mm/Hg HCO3 29.3 H (21-28) mmol/L ABG pH 7.30 L (7.35-7.45) ABG Total CO2 35.6 H (22-28) mmol/L ABG O2 Saturation 99.8 H (95-98) % ABG O2 Content 13.7 L (15-23) ML/dL ABG Base Excess 5.6 H (-2.0-3.0) mmol/L ABG Hemoglobin 9.9 L (11.7-17.4) g/dL ABG Carboxyhemoglobin 1.8 H (0.5-1.5) % POC ABG HHb (Measured) 0.2 (0.0-5.0) % ABG Methemoglobin 1.1 (0.0-3.0) % ABG O2 Capacity 13.7 L (16-24) mL/dL Dick Test Yes A-a O2 Difference 362.0 mm/Hg Hgb O2 Saturation 96.9 (95.0-98.0) % FiO2 80.0 % PEEP 5 CPAP 10 Sodium (132-148) mmol/l Potassium (3.6-5.0) MMOL/L Chloride (98-107) mmol/L Carbon Dioxide (22-30) mmol/L Anion Gap (10-20) BUN (7-17) mg/dl Creatinine (0.7-1.2) mg/dl Est GFR ( Amer) Est GFR (Non-Af Amer) Random Glucose (65-105) mg/dL Lactic Acid 1.0 (0.7-2.1) MMOL/L Calcium (8.4-10.2) mg/dL Total Bilirubin (0.2-1.3) mg/dl AST (14-36) U/L ALT (9-52) U/L Alkaline Phosphatase (38-126) U/L Troponin I (0.00-0.120) ng/mL NT-Pro-B Natriuret Pep 1460 H (0-900) pg/ml Total Protein (6.3-8.2) G/DL Albumin (3.5-5.0) g/dL Globulin (2.2-3.9) gm/dL Albumin/Globulin Ratio (1.0-2.1) Lipase (23-300) U/L 03/02/17 03/02/17 03/02/17 Range/Units 08:11 08:11 08:11 WBC 13.8 H (4.8-10.8) K/uL RBC 2.77 L (3.80-5.20) Mil/uL Hgb 9.1 L (12.0-16.0) g/dL Hct 28.9 L (34.0-47.0) % MCV 104.4 H D (81.0-99.0) fl MCH 33.0 H (27.0-31.0) pg MCHC 31.7 L (33.0-37.0) g/dL RDW 17.1 H (11.5-14.5) % Plt Count 203 D (130-400) K/uL PT 19.5 H (9.8-13.1) Seconds INR 1.7 H (0.9-1.2) APTT 30.4 (25.6-37.1) Seconds pCO2 (35-45) mm/Hg pO2 (80-100) mm/Hg HCO3 (21-28) mmol/L ABG pH (7.35-7.45) ABG Total CO2 (22-28) mmol/L ABG O2 Saturation (95-98) % ABG O2 Content (15-23) ML/dL ABG Base Excess (-2.0-3.0) mmol/L ABG Hemoglobin (11.7-17.4) g/dL ABG Carboxyhemoglobin (0.5-1.5) % POC ABG HHb (Measured) (0.0-5.0) % ABG Methemoglobin (0.0-3.0) % ABG O2 Capacity (16-24) mL/dL Dick Test A-a O2 Difference mm/Hg Hgb O2 Saturation (95.0-98.0) % FiO2 % PEEP CPAP Sodium 140 (132-148) mmol/l Potassium 3.8 (3.6-5.0) MMOL/L Chloride 102 (98-107) mmol/L Carbon Dioxide 33 H (22-30) mmol/L Anion Gap 9 L (10-20) BUN 19 H (7-17) mg/dl Creatinine 0.8 (0.7-1.2) mg/dl Est GFR ( Amer) > 60 Est GFR (Non-Af Amer) > 60 Random Glucose 160 H (65-105) mg/dL Lactic Acid (0.7-2.1) MMOL/L Calcium 9.1 (8.4-10.2) mg/dL Total Bilirubin 1.8 H (0.2-1.3) mg/dl AST 67 H (14-36) U/L ALT 61 H (9-52) U/L Alkaline Phosphatase 146 H (38-126) U/L Troponin I (0.00-0.120) ng/mL NT-Pro-B Natriuret Pep (0-900) pg/ml Total Protein 7.3 (6.3-8.2) G/DL Albumin 3.0 L (3.5-5.0) g/dL Globulin 4.2 H (2.2-3.9) gm/dL Albumin/Globulin Ratio 0.7 L (1.0-2.1) Lipase (23-300) U/L 03/02/17 03/01/17 Range/Units 05:00 15:00 WBC (4.8-10.8) K/uL RBC (3.80-5.20) Mil/uL Hgb (12.0-16.0) g/dL Hct (34.0-47.0) % MCV (81.0-99.0) fl MCH (27.0-31.0) pg MCHC (33.0-37.0) g/dL RDW (11.5-14.5) % Plt Count (130-400) K/uL PT (9.8-13.1) Seconds INR (0.9-1.2) APTT (25.6-37.1) Seconds pCO2 (35-45) mm/Hg pO2 (80-100) mm/Hg HCO3 (21-28) mmol/L ABG pH (7.35-7.45) ABG Total CO2 (22-28) mmol/L ABG O2 Saturation (95-98) % ABG O2 Content (15-23) ML/dL ABG Base Excess (-2.0-3.0) mmol/L ABG Hemoglobin (11.7-17.4) g/dL ABG Carboxyhemoglobin (0.5-1.5) % POC ABG HHb (Measured) (0.0-5.0) % ABG Methemoglobin (0.0-3.0) % ABG O2 Capacity (16-24) mL/dL Dick Test A-a O2 Difference mm/Hg Hgb O2 Saturation (95.0-98.0) % FiO2 % PEEP CPAP Sodium 141 (132-148) mmol/l Potassium 3.8 (3.6-5.0) MMOL/L Chloride 102 (98-107) mmol/L Carbon Dioxide 31 H (22-30) mmol/L Anion Gap 12 (10-20) BUN 15 (7-17) mg/dl Creatinine 0.7 (0.7-1.2) mg/dl Est GFR ( Amer) > 60 Est GFR (Non-Af Amer) > 60 Random Glucose 132 H (65-105) mg/dL Lactic Acid (0.7-2.1) MMOL/L Calcium 9.4 (8.4-10.2) mg/dL Total Bilirubin 2.0 H (0.2-1.3) mg/dl AST 78 H (14-36) U/L ALT 65 H (9-52) U/L Alkaline Phosphatase 182 H (38-126) U/L Troponin I < 0.0120 (0.00-0.120) ng/mL NT-Pro-B Natriuret Pep (0-900) pg/ml Total Protein 7.9 (6.3-8.2) G/DL Albumin 3.4 L (3.5-5.0) g/dL Globulin 4.5 H (2.2-3.9) gm/dL Albumin/Globulin Ratio 0.8 L (1.0-2.1) Lipase 73 (23-300) U/L Laboratory Results - last 24 hr 03/01/17 03/02/17 03/02/17 15:00 05:00 08:11 WBC 13.8 H RBC 2.77 L Hgb 9.1 L Hct 28.9 L MCV 104.4 H D MCH 33.0 H MCHC 31.7 L RDW 17.1 H Plt Count 203 D PT INR APTT pCO2 pO2 HCO3 ABG pH ABG Total CO2 ABG O2 Saturation ABG O2 Content ABG Base Excess ABG Hemoglobin ABG Carboxyhemoglobin POC ABG HHb (Measured) ABG Methemoglobin ABG O2 Capacity Dick Test A-a O2 Difference Hgb O2 Saturation FiO2 PEEP CPAP Sodium 141 Potassium 3.8 Chloride 102 Carbon Dioxide 31 H Anion Gap 12 BUN 15 Creatinine 0.7 Est GFR ( Amer) > 60 Est GFR (Non-Af Amer) > 60 Random Glucose 132 H Lactic Acid Calcium 9.4 Total Bilirubin 2.0 H AST 78 H ALT 65 H Alkaline Phosphatase 182 H Troponin I < 0.0120 NT-Pro-B Natriuret Pep Total Protein 7.9 Albumin 3.4 L Globulin 4.5 H Albumin/Globulin Ratio 0.8 L Lipase 73 03/02/17 03/02/17 03/02/17 08:11 08:11 08:11 WBC RBC Hgb Hct MCV MCH MCHC RDW Plt Count PT 19.5 H INR 1.7 H APTT 30.4 pCO2 pO2 HCO3 ABG pH ABG Total CO2 ABG O2 Saturation ABG O2 Content ABG Base Excess ABG Hemoglobin ABG Carboxyhemoglobin POC ABG HHb (Measured) ABG Methemoglobin ABG O2 Capacity Dick Test A-a O2 Difference Hgb O2 Saturation FiO2 PEEP CPAP Sodium 140 Potassium 3.8 Chloride 102 Carbon Dioxide 33 H Anion Gap 9 L BUN 19 H Creatinine 0.8 Est GFR ( Amer) > 60 Est GFR (Non-Af Amer) > 60 Random Glucose 160 H Lactic Acid 1.0 Calcium 9.1 Total Bilirubin 1.8 H AST 67 H ALT 61 H Alkaline Phosphatase 146 H Troponin I NT-Pro-B Natriuret Pep Total Protein 7.3 Albumin 3.0 L Globulin 4.2 H Albumin/Globulin Ratio 0.7 L Lipase 03/02/17 03/02/17 09:34 10:15 WBC RBC Hgb Hct MCV MCH MCHC RDW Plt Count PT INR APTT pCO2 68 H pO2 123 H HCO3 29.3 H ABG pH 7.30 L ABG Total CO2 35.6 H ABG O2 Saturation 99.8 H ABG O2 Content 13.7 L ABG Base Excess 5.6 H ABG Hemoglobin 9.9 L ABG Carboxyhemoglobin 1.8 H POC ABG HHb (Measured) 0.2 ABG Methemoglobin 1.1 ABG O2 Capacity 13.7 L Dick Test Yes A-a O2 Difference 362.0 Hgb O2 Saturation 96.9 FiO2 80.0 PEEP 5 CPAP 10 Sodium Potassium Chloride Carbon Dioxide Anion Gap BUN Creatinine Est GFR ( Amer) Est GFR (Non-Af Amer) Random Glucose Lactic Acid Calcium Total Bilirubin AST ALT Alkaline Phosphatase Troponin I NT-Pro-B Natriuret Pep 1460 H Total Protein Albumin Globulin Albumin/Globulin Ratio Lipase Review of Systems - Review of Systems Systems not reviewed;Unavailable: Altered Mental Status Critical Care Progress Note - Ventilator Checklist Head of Bed 30 Degrees: Yes Daily Assessment of Readiness to Wean: Yes Daily Spontaneous Breathing Trial: Yes PUD Prophalyxis: Yes DVT Prophylaxis: Yes Oral Care with Chlorhexidine Gluconate {CHG}: Yes - Extremities/Vascular Does the Patient have a Central Venous Catheter?: No Does the Patient need a Central Venous Catheter?: No Does the Patient have a Gaffney Catheter?: Yes Does the Patient need a Gaffney Catheter?: Yes - Nutrition Nutrition: Nutrition Category Date Time Status NPO Diet [DIET] Diets 03/01/17 Breakfast Active Assessment/Plan (1) UTI (urinary tract infection) Current Visit: Yes Status: Acute (2) COPD exacerbation Current Visit: Yes Status: Acute (3) Acute and chronic respiratory failure with hypercapnia Current Visit: No Status: Acute (4) Alcohol abuse Current Visit: No Status: Acute (5) Bilateral pneumonia Current Visit: No Status: Acute (6) Hepatic encephalopathy Current Visit: No Status: Acute (7) Severe sepsis Current Visit: No Status: Acute - Assessment and Plan (Free Text) Assessment: Acute respiratory failure with hypoxemia and Hypercapnia in the setting of Bilateral pneumonia , severe Respiratory muscle with underlying Obstructive lung disease, limited pulmonary reserve and hypoventilation from obesity. Bilateral pneumonia Abdominal pain R/O Obstruction Transferred to ICU care for hemodynamic and Respiratory monitoring Maintain MAP 65-75 Full vent support Sedation with Propofol Start IV antibiotics with Tygacil IV Methylprednisolone to 40 mg IVPB Q8H Continue nebulizer treatment Continue diuretics as needed Strict I&O, negative fluid balance Aggressive pulmonary toilet, chest PT, suctioning Send tracheal aspirate for gram stain and C/S Maintain aspiration precautions CT scan chest to evaluate lung parynchema and Abd to R/O Obsruction when more stable NG Tube Surgery and ID consult appreciated GI/DVT PPX
[2017-03-02 17:55] LABS: ABG ALLEN TEST YES; ARTERIAL BLOOD GAS HCO3 25.8 mmol/L (21-28); ARTERIAL BLOOD GAS O2 SAT 92.5 % (95-98); ARTERIAL BLOOD GAS PCO2 109 mm/Hg (35-45); ARTERIAL BLOOD GAS PH 7.11 (7.35-7.45); ARTERIAL BLOOD GAS PO2 62 mm/Hg (80-100); ARTERIAL BLOOD GAS TCO2 37.9 mmol/L (22-28)
--- NOTE | 2017-03-02 18:01 | CON ---
DATE: HISTORY OF PRESENT ILLNESS: Ms. Jules is a 51-year-old female with history of chronic obstructive pulmonary disease and alcohol abuse, who was admitted with shortness of breath and placed on BiPAP. She is unable to give any history and is thrashing about the bed and pulling off her BiPAP machine. PAST MEDICAL HISTORY: As per medical records, of chronic obstructive pulmonary disease, hepatic encephalopathy, chronic alcohol use, and gastroenterology problems. PHYSICAL EXAMINATION: GENERAL: The patient is morbidly obese, appears to be in some distress, refusing to keep her BiPAP on, is pulling it off and O2 saturation dropping down to the 60s. VITAL SIGNS: Blood pressure 124/73, pulse of 103, respiratory rate 18, she is afebrile, O2 sat is 100% on present BiPAP therapy, but drops to 60%-65% when she pulls it off. HEENT: Mouth is dry. LUNGS: Poor aeration with audible wheezing and rales. HEART: S1 and S2. ABDOMEN: Soft with diffuse tenderness and distended. EXTREMITIES: Showed 1+ pitting pedal edema. CENTRAL NERVOUS SYSTEM: The patient is agitated and thrashing about the bed, has to be held down by the nurse fundraising assistant. LABORATORY DATA: WBC 12.1, hemoglobin 10.1, and platelet count 357,000. Sodium 142, potassium 3.6, BUN 14, creatinine 0.6, and serum glucose 136. Chest x-ray, left upper lobe veil-like opacity consistent with atelectasis, mild congestive changes. ABG; pH 7.40, pCO2 of 51, pO2 of 73, this is on 60% FiO2. Repeat ABG pending. IMPRESSION: Acute hypercapnic respiratory failure, history of alcohol use. PLAN: Continue BiPAP therapy for now. The patient may need to be sedated to prevent injury to self and others. May need puller out evaluation for possible transfer to ICU until clinically stable. We will continue therapy as ordered. We will continue to follow with you. Jaime Lin MD
[2017-03-02] MEDS ORDERED: Propofol 10 mg/ml 1,000 MG/100 ML VIAL IV SCH (18:20)
[2017-03-02] MEDS ORDERED: Propofol 10 mg/ml 2,000 MG/200 ML VIAL ONE (18:31)
[2017-03-02] MEDS ORDERED: Etomidate 20 mg/10ml Inj IV ONE (19:06)
[2017-03-02] MEDS ORDERED: MethylPREDNISolone 40 mg Vial IVP SCH (19:15)
[2017-03-02] MEDS ORDERED: methylPREDNISolone 40 MG in Sodium Chloride 0.9% 50 ML IVPB SCH (19:15)
[2017-03-02] MEDS ORDERED: Midazolam 2 MG/2 ML VIAL IV ONE (19:28)
--- NOTE | 2017-03-02 19:40 | PCM.ANES ---
Anesthesia Emergent Intubation - Diagnosis Working Diagnosis:: impending respiratory failure - Consult Reason for Consult:: intubate Intubation Meds Given: Etomidate, Versed - Airway Management Rapid Sequence: Yes (modified) Cricoid Pressure: Yes Possible Aspiration: No (dry oropharyngeal area) - Method of Intubation Intubation Method: Oral ETT ETT Size: 7.5 Lipline@: 21 Easy: Yes Atramatic: Yes - Intubation Devices Frank Blade Size Used: 3 - Placement Confirmation Breath Sounds Present & Equal Bilaterally: Yes Positive EtCO2: Yes
[2017-03-02] MEDS: Propofol 10 mg/ml 1,000 MG/100 ML VIAL IV SCH ×2 (20:39→21:02)
[2017-03-02] MEDS ORDERED: Albuterol-Ipratrop 3 mg / 0.5 (3 ml) UD INH PRN (20:39)
[2017-03-02] MEDS ORDERED: Iohexol 240 (50 ml) PO STA (20:39)
[2017-03-02] MEDS ORDERED: Sodium Chloride 0.45% 1,000 ML IV SCH ×2 (20:45)
[2017-03-02 21:52] LABS: ABG ALLEN TEST YES; ARTERIAL BLOOD GAS HCO3 29.8 mmol/L (21-28); ARTERIAL BLOOD GAS O2 SAT 99.6 % (95-98); ARTERIAL BLOOD GAS PCO2 56 mm/Hg (35-45); ARTERIAL BLOOD GAS PH 7.38 (7.35-7.45); ARTERIAL BLOOD GAS PO2 74 mm/Hg (80-100); ARTERIAL BLOOD GAS TCO2 34.8 mmol/L (22-28)
[2017-03-02] MEDS ORDERED: Levalbuterol 0.63 MG/3 ML Inhal Soln UD INH SCH (22:00)
[2017-03-03] MEDS: Albuterol-Ipratrop 3 mg / 0.5 (3 ml) UD INH SCH ×6 (00:01→19:17)
[2017-03-03] MEDS ORDERED: Chlorhexidine Gluconate 1 APPL/PKT TP ONE (00:43)
[2017-03-03] MEDS: MethylPREDNISolone 40 mg Vial IVP SCH ×3 (02:20→16:12)
[2017-03-03 05:51] LABS: BASO % 0.3 % (0.0-2.0); EOS % 0.1 % (0.0-4.0); HEMOGLOBIN 9.4 g/dL (12.0-16.0); LYMPH # 0.8 K/uL (1.0-4.3); LYMPH % 8.6 % (20.0-40.0); MEAN CELL VOLUME 106.4 fl (81.0-99.0); MEAN CORPUSCULAR HEMOGLOBIN 34.7 pg (27.0-31.0); MEAN CORPUSCULAR HGB CONC 32.6 g/dL (33.0-37.0); MEAN PLATELET VOLUME 8.1 fl (7.2-11.7); MONO # 0.5 K/uL (0.0-0.8); MONO % 5.3 % (0.0-10.0); NEUT # 7.5 K/uL (1.8-7.0); NEUT % 85.7 % (50.0-75.0); NRBC % 0.3 % (0.0-0.0); PLATELET COUNT 156 K/uL (130-400); RBC 2.71 Mil/uL (3.80-5.20); RED CELL DISTRIBUTION WIDTH 16.7 % (11.5-14.5); WHITE BLOOD COUNT 8.8 K/uL (4.8-10.8)
[2017-03-03 06:09] LABS: ALB/GLOB RATIO 0.7 (1.0-2.1); ALBUMIN 2.9 g/dL (3.5-5.0); ALT/SGPT 58 U/L (9-52); AST/SGOT 69 U/L (14-36); BLOOD UREA NITROGEN 31 mg/dl (7-17); CALCIUM 9.5 mg/dL (8.4-10.2); GFR AFRICAN-AMERICAN > 60; GFR NON-AFRICAN AMERICAN > 60
[2017-03-03 06:43] LABS: ABG ALLEN TEST YES; ARTERIAL BLOOD GAS HCO3 30.6 mmol/L (21-28); ARTERIAL BLOOD GAS HEMOGLOBIN 9.2 g/dL (11.7-17.4); ARTERIAL BLOOD GAS O2 CAPACITY 12.7 mL/dL (16-24); ARTERIAL BLOOD GAS O2 CONTENT 12.7 ML/dL (15-23); ARTERIAL BLOOD GAS O2 SAT 99.9 % (95-98); ARTERIAL BLOOD GAS PCO2 49 mm/Hg (35-45); ARTERIAL BLOOD GAS PH 7.43 (7.35-7.45); ARTERIAL BLOOD GAS PO2 97 mm/Hg (80-100)
[2017-03-03 07:32] LABS: URINE BILIRUBIN NEGATIVE (NEGATIVE); URINE BLOOD LARGE (NEGATIVE); URINE CLARITY TURBID (Clear); URINE GLUCOSE (UA) NEG (Normal); URINE LEUKOCYTE ESTERASE NEG Leu/uL (Negative); URINE NITRATE NEGATIVE (NEGATIVE); URINE PROTEIN 100 mg/dL (NEGATIVE)
--- NOTE | 2017-03-03 07:38 | CP.PCM.PN ---
Subjective - Date & Time of Evaluation Date of Evaluation: 03/03/17 Time of Evaluation: 07:10 - Subjective Subjective: Patient seen and examined bedside with Dr gama in ICU. Patient on ventilator PRVC/AC 18 PeeP 5 FIO2 60 % , restless, open eyes to tactile stimuli Pupils equal both reactive to light, on respiratory distress. Surgery team bedside. Patient will go for CT Abd today. soria draining to blood tined urine Objective - Vital Signs/Intake and Output Vital Signs (last 24 hours): Temp Pulse Resp BP Pulse Ox 98.8 F 87 18 147/73 100 03/03/17 04:00 03/03/17 06:00 03/03/17 06:00 03/03/17 06:00 03/03/17 06:00 Intake and Output: 03/03/17 03/03/17 06:59 18:59 Intake Total 1071.000 Output Total 200 Balance 871.000 - Medications Medications: Current Medications Acetaminophen (Tylenol 325mg Tab) 650 mg PO Q6H PRN PRN Reason: Pain, Mild (1-3) Acetaminophen (Tylenol 325mg Tab) 650 mg PO Q6H PRN PRN Reason: Fever >100.4 F Albuterol/Ipratropium (Duoneb 3 Mg/0.5 Mg (3 Ml) Ud) 3 ml INH RQ4 PRN PRN Reason: Shortness of Breath Albuterol/Ipratropium (Duoneb 3 Mg/0.5 Mg (3 Ml) Ud) 3 ml INH RQ4 [facility] Last Admin: 03/03/17 04:20 Dose: 3 ml Clonidine HCl (Catapres) 0.5 mg PO BID PRN PRN Reason: Agitation Enoxaparin Sodium (Lovenox) 40 mg SC DAILY [facility] PRN Reason: Protocol Folic Acid (Folic Acid) 1 mg PO DAILY [facility] Sodium Chloride (Sodium Chloride 0.45%) 1,000 mls @ 75 mls/hr IV .[id number] [facility] Stop: 03/03/17 10:04 Last Admin: 03/02/17 20:56 Dose: 75 mls/hr Propofol (Diprivan) 1,000 mg in 100 mls @ 2.966 mls/hr IV .Q24H [facility]; 5 MCG/KG/ MIN PRN Reason: Protocol Stop: 03/03/17 20:19 Last Titration: 03/03/17 00:25 Dose: 10 mcg/kg/min, 5.933 mls/hr Tigecycline 50 mg/ Sodium (Chloride) 100 mls @ 100 mls/hr IVPB Q12H [facility] PRN Reason: Protocol Last Admin: 03/03/17 05:13 Dose: 100 mls/hr Lactulose (Enulose) 20 gm PO QID [facility] Last Admin: 03/02/17 21:47 Dose: Not Given Lidocaine (Lidoderm) 1 ea TD DAILY [facility] Methylprednisolone (Solu-Medrol) 80 mg IV Q6 [facility] Last Admin: 03/03/17 04:33 Dose: 80 mg Methylprednisolone (Solu-Medrol) 40 mg IVP Q8 [facility] Last Admin: 03/03/17 02:20 Dose: Not Given Morphine Sulfate (Morphine) 2 mg IVP Q4 PRN PRN Reason: Pain, severe (8-10) Last Admin: 03/03/17 02:14 Dose: 2 mg Multivitamins/Minerals (Therapeutic-M Tab) 1 tab PO DAILY [facility] Nystatin (Mycostatin Cream) 1 applic TOP TID [facility] Nystatin (Nystop Topical Powder) 1 applic TOP QID [facility] Last Admin: 03/02/17 23:00 Dose: 1 applic Pantoprazole Sodium (Protonix Inj) 40 mg IVP DAILY [facility] Rifaximin (Xifaxan) 550 mg PO BID [facility] PRN Reason: Protocol Fluticasone/Salmeterol (Advair Diskus 250/50) 1 puff IH Q12 [facility] Last Admin: 03/02/17 21:04 Dose: Not Given Thiamine HCl (Vitamin B1 Tab) 100 mg PO DAILY [facility] - Labs Labs: 03/03/17 04:40 03/03/17 04:40 PT 19.5 Seconds (9.8-13.1) H 03/02/17 08:11 INR 1.7 (0.9-1.2) H 03/02/17 08:11 APTT 30.4 Seconds (25.6-37.1) 03/02/17 08:11 - Constitutional Appears: In Acute Distress, Agitated - Head Exam Head Exam: ATRAUMATIC, NORMOCEPHALIC - Eye Exam Eye Exam: Normal appearance - ENT Exam ENT Exam: Mucous Membranes Moist - Respiratory Exam Respiratory Exam: Decreased Breath Sounds, Rales, Rhonchi, Wheezes - Cardiovascular Exam Cardiovascular Exam: REGULAR RHYTHM, +S1, +S2 - GI/Abdominal Exam GI & Abdominal Exam: Soft, Normal Bowel Sounds. absent: Tenderness - Extremities Exam Extremities Exam: Normal Inspection. absent: Pedal Edema - Neurological Exam Additional comments: comatose, moving 4 ext to tactile painful stimuli - Skin Skin Exam: Rash Additional comments: B/L arms internal side Assessment and Plan - Assessment and Plan (Free Text) Plan: Assessment/Plan 1) Acute respiratory failure -secondary to hepatic encephalopathy and respiratory distress -admitted ICU -on ventilator due to hypercapneic respiratory failure -c/w steroids 2) Hepatic encephalopathy -Gi Consult appreciated: C/w lactulose,rifaxamin -amonium levels normal 3) UTI -VRE, Ecoli resistant to levaquin -ID consult appreciated: started in Tygacil -f/u urine cx 4) COPD exacerbation -duoneb -solumedrol -Applied Anthropologist consult appreciated: c/w steroids, duoneb 5) B/L pneumonia Left upper lobe linear atelectasis versus infiltrate. nonspecific hazy appeareance of the right lung base -s/p levaquin 6) Abdominal pain -XR Abd possible illeus vs small bowel obstruction vs peritonitis -Surgery consult appreciated: Ct abd -CT abd when pt stable 7) Cirrhosis -recent CT liver did not reveal any previous ascites, only cirrhotic changes 8) DVT Prophylaxis -lovenox 9) GI prophylaxis -Pantoprazole 40 mg IV
[2017-03-03 07:39] LABS: SQUAMOUS EPITHIAL 3 /hpf (0-5); URINE BACTERIA FEW (<OCC)
[2017-03-03 07:40] LABS: URINE COLOR RED (YELLOW)
[2017-03-03 07:53] LABS: LYMPHOCYTE 11 % (20-50); MONOCYTE 6 % (0-10); NEUTROPHIL 83 % (42-75); PLATELET ESTIMATE NORMAL (NORMAL); TOTAL CELLS COUNTED 100
--- NOTE | 2017-03-03 08:01 | CP.PCM.PN ---
Subjective - Date & Time of Evaluation Date of Evaluation: 03/03/17 Time of Evaluation: 07:57 - Subjective Subjective: RFV: Cirrhosis S: Developed acute hypercapneic respiratory failure and respiratory acidosis. Intubated and transfered to ICU. On propofol but agitated this morning. On vent. Objective - Vital Signs/Intake and Output Vital Signs (last 24 hours): Temp Pulse Resp BP Pulse Ox 98.8 F 102 H 30 H 154/68 H 100 03/03/17 04:00 03/03/17 07:00 03/03/17 07:00 03/03/17 07:00 03/03/17 07:00 Intake and Output: 03/03/17 03/03/17 06:59 18:59 Intake Total 1071.000 117 Output Total 200 Balance 871.000 117 - Medications Medications: Current Medications Acetaminophen (Tylenol 325mg Tab) 650 mg PO Q6H PRN PRN Reason: Pain, Mild (1-3) Acetaminophen (Tylenol 325mg Tab) 650 mg PO Q6H PRN PRN Reason: Fever >100.4 F Albuterol/Ipratropium (Duoneb 3 Mg/0.5 Mg (3 Ml) Ud) 3 ml INH RQ4 PRN PRN Reason: Shortness of Breath Albuterol/Ipratropium (Duoneb 3 Mg/0.5 Mg (3 Ml) Ud) 3 ml INH RQ4 [facility] Last Admin: 03/03/17 07:44 Dose: 3 ml Clonidine HCl (Catapres) 0.5 mg PO BID PRN PRN Reason: Agitation Enoxaparin Sodium (Lovenox) 40 mg SC DAILY [facility] PRN Reason: Protocol Folic Acid (Folic Acid) 1 mg PO DAILY [facility] Sodium Chloride (Sodium Chloride 0.45%) 1,000 mls @ 75 mls/hr IV .[id number] [facility] Stop: 03/03/17 10:04 Last Admin: 03/02/17 20:56 Dose: 75 mls/hr Propofol (Diprivan) 1,000 mg in 100 mls @ 2.966 mls/hr IV .Q24H [facility]; 5 MCG/KG/ MIN PRN Reason: Protocol Stop: 03/03/17 20:19 Last Titration: 03/03/17 07:54 Dose: 10.5 mcg/kg/min, 6.23 mls/hr Tigecycline 50 mg/ Sodium (Chloride) 100 mls @ 100 mls/hr IVPB Q12H [facility] PRN Reason: Protocol Last Admin: 03/03/17 05:13 Dose: 100 mls/hr Lactulose (Enulose) 20 gm PO QID [facility] Last Admin: 03/02/17 21:47 Dose: Not Given Lidocaine (Lidoderm) 1 ea TD DAILY [facility] Methylprednisolone (Solu-Medrol) 80 mg IV Q6 [facility] Last Admin: 03/03/17 04:33 Dose: 80 mg Methylprednisolone (Solu-Medrol) 40 mg IVP Q8 [facility] Last Admin: 03/03/17 02:20 Dose: Not Given Morphine Sulfate (Morphine) 2 mg IVP Q4 PRN PRN Reason: Pain, severe (8-10) Last Admin: 03/03/17 02:14 Dose: 2 mg Multivitamins/Minerals (Therapeutic-M Tab) 1 tab PO DAILY [facility] Nystatin (Mycostatin Cream) 1 applic TOP TID [facility] Nystatin (Nystop Topical Powder) 1 applic TOP QID [facility] Last Admin: 03/02/17 23:00 Dose: 1 applic Pantoprazole Sodium (Protonix Inj) 40 mg IVP DAILY [facility] Rifaximin (Xifaxan) 550 mg PO BID [facility] PRN Reason: Protocol Fluticasone/Salmeterol (Advair Diskus 250/50) 1 puff IH Q12 [facility] Last Admin: 03/02/17 21:04 Dose: Not Given Thiamine HCl (Vitamin B1 Tab) 100 mg PO DAILY [facility] - Labs Labs: 03/03/17 04:40 03/03/17 04:40 PT 19.5 Seconds (9.8-13.1) H 03/02/17 08:11 INR 1.7 (0.9-1.2) H 03/02/17 08:11 APTT 30.4 Seconds (25.6-37.1) 03/02/17 08:11 - Constitutional Appears: Chronically Ill, Other (obese) - Head Exam Head Exam: ATRAUMATIC, NORMOCEPHALIC - Eye Exam Eye Exam: Normal appearance, PERRL. absent: Scleral icterus - Respiratory Exam Additional comments: on vent - Cardiovascular Exam Cardiovascular Exam: REGULAR RHYTHM, +S1, +S2 - GI/Abdominal Exam GI & Abdominal Exam: Distended, Soft. absent: Firm, Guarding, Rigid, Tenderness - Extremities Exam Extremities Exam: Normal Capillary Refill, Pedal Edema - Neurological Exam Neurological Exam: Altered - Skin Skin Exam: Dry, Normal Color, Warm Assessment and Plan - Assessment and Plan (Free Text) Assessment: 51 year old female with history of ETOH cirrhosis, COPD, obesity admitted with COPD exacerbation, also with altered mental status now. 1. Alcoholic cirrhosis 2. Hepatic encephalopathy Plan: - intubated now for hypercapneic respiratory failure - would agree with elective CT abdomen when medically stable considering non- specific abdominal x ray findings - would continue lactulose and rifaxamin for encephalopathy, ammonia level is ok now, but she has had this problem in the past and would continue meds to prevent recurrence and she remains agitated anyway - continue antibiotics/steroids for COPD per pulmonary
--- NOTE | 2017-03-03 08:25 | CP.PCM.PN ---
Subjective - Date & Time of Evaluation Date of Evaluation: 03/03/17 Time of Evaluation: 08:26 - Subjective Subjective: INTUBATED AND BEING VENTILATED FOR ACUTE HYPERCAPNEIC RESPIRATORY FAILURE SEDATED ON DIPRIVAN ABGS ADEQUATE Objective - Vital Signs/Intake and Output Vital Signs (last 24 hours): Temp Pulse Resp BP Pulse Ox 98.8 F 102 H 30 H 154/68 H 100 03/03/17 04:00 03/03/17 07:00 03/03/17 07:00 03/03/17 07:00 03/03/17 07:00 Intake and Output: 03/03/17 03/03/17 06:59 18:59 Intake Total 1071.000 117 Output Total 200 Balance 871.000 117 - Medications Medications: Current Medications Acetaminophen (Tylenol 325mg Tab) 650 mg PO Q6H PRN PRN Reason: Pain, Mild (1-3) Acetaminophen (Tylenol 325mg Tab) 650 mg PO Q6H PRN PRN Reason: Fever >100.4 F Albuterol/Ipratropium (Duoneb 3 Mg/0.5 Mg (3 Ml) Ud) 3 ml INH RQ4 PRN PRN Reason: Shortness of Breath Albuterol/Ipratropium (Duoneb 3 Mg/0.5 Mg (3 Ml) Ud) 3 ml INH RQ4 [facility] Last Admin: 03/03/17 07:44 Dose: 3 ml Clonidine HCl (Catapres) 0.5 mg PO BID PRN PRN Reason: Agitation Enoxaparin Sodium (Lovenox) 40 mg SC DAILY [facility] PRN Reason: Protocol Folic Acid (Folic Acid) 1 mg PO DAILY [facility] Sodium Chloride (Sodium Chloride 0.45%) 1,000 mls @ 75 mls/hr IV .[id number] [facility] Stop: 03/03/17 10:04 Last Admin: 03/02/17 20:56 Dose: 75 mls/hr Propofol (Diprivan) 1,000 mg in 100 mls @ 2.966 mls/hr IV .Q24H [facility]; 5 MCG/KG/ MIN PRN Reason: Protocol Stop: 03/03/17 20:19 Last Titration: 03/03/17 07:15 Dose: 10.5 mcg/kg/min, 6.23 mls/hr Tigecycline 50 mg/ Sodium (Chloride) 100 mls @ 100 mls/hr IVPB Q12H [facility] PRN Reason: Protocol Last Admin: 03/03/17 05:13 Dose: 100 mls/hr Lactulose (Enulose) 20 gm PO QID [facility] Last Admin: 03/02/17 21:47 Dose: Not Given Lidocaine (Lidoderm) 1 ea TD DAILY [facility] Methylprednisolone (Solu-Medrol) 80 mg IV Q6 [facility] Last Admin: 03/03/17 04:33 Dose: 80 mg Methylprednisolone (Solu-Medrol) 40 mg IVP Q8 [facility] Last Admin: 03/03/17 02:20 Dose: Not Given Morphine Sulfate (Morphine) 2 mg IVP Q4 PRN PRN Reason: Pain, severe (8-10) Last Admin: 03/03/17 02:14 Dose: 2 mg Multivitamins/Minerals (Therapeutic-M Tab) 1 tab PO DAILY [facility] Nystatin (Mycostatin Cream) 1 applic TOP TID [facility] Nystatin (Nystop Topical Powder) 1 applic TOP QID [facility] Last Admin: 03/02/17 23:00 Dose: 1 applic Pantoprazole Sodium (Protonix Inj) 40 mg IVP DAILY [facility] Rifaximin (Xifaxan) 550 mg PO BID [facility] PRN Reason: Protocol Fluticasone/Salmeterol (Advair Diskus 250/50) 1 puff IH Q12 [facility] Last Admin: 03/02/17 21:04 Dose: Not Given Thiamine HCl (Vitamin B1 Tab) 100 mg PO DAILY [facility] - Labs Labs: 03/03/17 04:40 03/03/17 04:40 PT 19.5 Seconds (9.8-13.1) H 03/02/17 08:11 INR 1.7 (0.9-1.2) H 03/02/17 08:11 APTT 30.4 Seconds (25.6-37.1) 03/02/17 08:11 - Constitutional Appears: Chronically Ill - Head Exam Head Exam: ATRAUMATIC, NORMAL INSPECTION, NORMOCEPHALIC - Eye Exam Eye Exam: EOMI, Normal appearance, PERRL Pupil Exam: NORMAL ACCOMODATION, PERRL - ENT Exam ENT Exam: Mucous Membranes Moist, Normal Exam - Neck Exam Neck Exam: Full ROM, Normal Inspection. absent: Lymphadenopathy - Respiratory Exam Additional comments: ON THE VENT - Cardiovascular Exam Cardiovascular Exam: REGULAR RHYTHM, +S1, +S2. absent: Murmur - GI/Abdominal Exam GI & Abdominal Exam: Soft, Normal Bowel Sounds. absent: Tenderness - Rectal Exam Rectal Exam: NORMAL INSPECTION - Extremities Exam Extremities Exam: Full ROM, Normal Capillary Refill, Normal Inspection. absent : Joint Swelling, Pedal Edema - Back Exam Back Exam: NORMAL INSPECTION - Skin Skin Exam: Dry, Intact, Normal Color, Warm Assessment and Plan - Assessment and Plan (Free Text) Assessment: ACUTE RESPIRATORY FAILURE COPD EXAC Plan: CONTINUE PRESENT RX
--- NOTE | 2017-03-03 08:56 | RAD ---
HISTORY: post intubation COMPARISON: Chest radiograph performed approximately 6.5 hours prior FINDINGS: LUNGS: Diffuse pulmonary vascular congestion. Bilateral patchy airspace opacities. PLEURA: No significant pleural effusion identified, no pneumothorax apparent. CARDIOVASCULAR: Unchanged. OSSEOUS STRUCTURES: Old right rib fractures redemonstrated. Unchanged. VISUALIZED UPPER ABDOMEN: Normal. OTHER FINDINGS: Interval intubation with tip between the clavicles and kyung. IMPRESSION: Interval placement of endotracheal tube in satisfactory position. No other significant interval changes.
[2017-03-03] MEDS: Multivitamin With Minerals Tab PO SCH (09:02)
[2017-03-03] MEDS: Lidocaine 5% Patch TD SCH (09:04)
[2017-03-03] MEDS: Fluticasone-Salmeterol 250-50mcg Diskus IH SCH (09:24)
[2017-03-03] MEDS: Propofol 10 mg/ml 1,000 MG/100 ML VIAL IV SCH ×4 (09:25→19:30)
--- NOTE | 2017-03-03 09:28 | RAD ---
HISTORY: intubation COMPARISON: Chest radiograph dated 03/02/2017 FINDINGS: LUNGS: Stable diffuse pulmonary vascular congestion and patchy bilateral airspace opacities. PLEURA: No significant pleural effusion identified, no pneumothorax apparent. CARDIOVASCULAR: Unchanged. OSSEOUS STRUCTURES: Old right rib fractures redemonstrated. Unchanged. VISUALIZED UPPER ABDOMEN: Normal. OTHER FINDINGS: New enteric tube with tip in the stomach. Endotracheal tube, unchanged. IMPRESSION: Interval placement of and enteric tube in satisfactory position. No other significant interval changes.
[2017-03-03] MEDS: Enoxaparin 40 mg Syringe SC SCH (09:30)
[2017-03-03] MEDS ORDERED: Iohexol 240 (50 ml) PO ONE (09:45)
--- NOTE | 2017-03-03 09:52 | CP.PCM.PN ---
Subjective - Date & Time of Evaluation Date of Evaluation: 03/03/17 Time of Evaluation: 06:45 - Subjective Subjective: General surgery consult note for Dr. Anastasia Espino, PGY-1 Pt S & E at bedside. pt intubated/sedated on propofol, transferred to unit since yesterday. Pt arousable to tactile stimuli, with signs of agitation. PRVC RR 18, TV 500, PEEP 5, FiO2 60%. Afebrile overnight. No other events. Objective - Vital Signs/Intake and Output Vital Signs (last 24 hours): Temp Pulse Resp BP Pulse Ox 98.3 F 99 H 18 133/87 100 03/03/17 08:00 03/03/17 08:00 03/03/17 08:00 03/03/17 08:00 03/03/17 08:00 Intake and Output: 03/03/17 03/03/17 06:59 18:59 Intake Total 1071.000 160 Output Total 200 Balance 871.000 160 - Medications Medications: Current Medications Acetaminophen (Tylenol 325mg Tab) 650 mg PO Q6H PRN PRN Reason: Pain, Mild (1-3) Acetaminophen (Tylenol 325mg Tab) 650 mg PO Q6H PRN PRN Reason: Fever >100.4 F Albuterol/Ipratropium (Duoneb 3 Mg/0.5 Mg (3 Ml) Ud) 3 ml INH RQ4 PRN PRN Reason: Shortness of Breath Albuterol/Ipratropium (Duoneb 3 Mg/0.5 Mg (3 Ml) Ud) 3 ml INH RQ4 [facility] Last Admin: 03/03/17 07:44 Dose: 3 ml Clonidine HCl (Catapres) 0.5 mg PO BID PRN PRN Reason: Agitation Enoxaparin Sodium (Lovenox) 40 mg SC DAILY [facility] PRN Reason: Protocol Last Admin: 03/03/17 09:30 Dose: 40 mg Folic Acid (Folic Acid) 1 mg PO DAILY [facility] Last Admin: 03/03/17 09:29 Dose: 1 mg Sodium Chloride (Sodium Chloride 0.45%) 1,000 mls @ 75 mls/hr IV .[id number] [facility] Stop: 03/03/17 10:04 Last Admin: 03/02/17 20:56 Dose: 75 mls/hr Propofol (Diprivan) 1,000 mg in 100 mls @ 2.966 mls/hr IV .Q24H [facility]; 5 MCG/KG/ MIN PRN Reason: Protocol Stop: 03/03/17 20:19 Last Admin: 03/03/17 09:25 Dose: 20 mcg/kg/min, 11.866 mls/hr Tigecycline 50 mg/ Sodium (Chloride) 100 mls @ 100 mls/hr IVPB Q12H [facility] PRN Reason: Protocol Last Admin: 03/03/17 05:13 Dose: 100 mls/hr Lactulose (Enulose) 20 gm PO QID [facility] Last Admin: 03/03/17 09:29 Dose: 20 gm Lidocaine (Lidoderm) 1 ea TD DAILY [facility] Last Admin: 03/03/17 09:04 Dose: 1 ea Methylprednisolone (Solu-Medrol) 80 mg IV Q6 [facility] Last Admin: 03/03/17 04:33 Dose: 80 mg Methylprednisolone (Solu-Medrol) 40 mg IVP Q8 [facility] Last Admin: 03/03/17 09:01 Dose: 40 mg Morphine Sulfate (Morphine) 2 mg IVP Q4 PRN PRN Reason: Pain, severe (8-10) Last Admin: 03/03/17 02:14 Dose: 2 mg Multivitamins/Minerals (Therapeutic-M Tab) 1 tab PO DAILY [facility] Last Admin: 03/03/17 09:02 Dose: 1 tab Nystatin (Mycostatin Cream) 1 applic TOP TID [facility] Last Admin: 03/03/17 09:00 Dose: 1 applic Nystatin (Nystop Topical Powder) 1 applic TOP QID [facility] Last Admin: 03/03/17 09:01 Dose: 1 applic Pantoprazole Sodium (Protonix Inj) 40 mg IVP DAILY [facility] Last Admin: 03/03/17 08:59 Dose: 40 mg Rifaximin (Xifaxan) 550 mg PO BID [facility] PRN Reason: Protocol Last Admin: 03/03/17 09:03 Dose: 550 mg Fluticasone/Salmeterol (Advair Diskus 250/50) 1 puff IH Q12 [facility] Last Admin: 03/03/17 09:24 Dose: Not Given Thiamine HCl (Vitamin B1 Tab) 100 mg PO DAILY [facility] Last Admin: 03/03/17 08:59 Dose: 100 mg - Labs Labs: 03/03/17 04:40 03/03/17 04:40 PT 19.5 Seconds (9.8-13.1) H 03/02/17 08:11 INR 1.7 (0.9-1.2) H 03/02/17 08:11 APTT 30.4 Seconds (25.6-37.1) 03/02/17 08:11 - Constitutional Appears: Non-toxic, No Acute Distress - Head Exam Head Exam: ATRAUMATIC, NORMAL INSPECTION, NORMOCEPHALIC - Eye Exam Eye Exam: EOMI, Normal appearance - ENT Exam ENT Exam: Mucous Membranes Moist Additional comments: ET tube in place - Respiratory Exam Respiratory Exam: NORMAL BREATHING PATTERN (on mechanical vent) - Cardiovascular Exam Cardiovascular Exam: Tachycardia - GI/Abdominal Exam GI & Abdominal Exam: Guarding (epigastric, periumbilical area). absent: Distended (obese), Rigid, Rebound - Extremities Exam Extremities Exam: absent: Pedal Edema - Neurological Exam Neurological Exam: absent: Alert, Awake, Oriented x3 Additional comments: intubated/sedated, arousable to tactile stimuli, becomes agitated with stimuli - Skin Skin Exam: Dry (excluding under pannus and inframammary areas- these have moisture), Rash (in intertriginous areas and distal upper extremities), Warm. absent: Normal Color Assessment and Plan - Assessment and Plan (Free Text) Assessment: 51F w/multiple co-morbidities consulted for abdominal pain, currently requiring mechanical ventilation. Plan: FU CT ab w/contrast Will follow Further recs pending imaging [place] attending Kenzie, PGY-1
--- NOTE | 2017-03-03 09:59 | US ---
HISTORY: abdominal pain COMPARISON: Correlation is made to CT scan dated 02/17/2017 TECHNIQUE: Sonographic evaluation of the abdomen. FINDINGS: LIVER: Enlarged, measured 18.9 cm. Normal echogenicity of the liver parenchyma. Nodular contour. No mass. No intrahepatic bile duct dilatation. Main portal vein demonstrates normal direction of flow. GALLBLADDER: Gallbladder sludge. Thickened wall. Sonographic Fagan sign was not elicited. COMMON BILE DUCT: Not visualized. PANCREAS: Not well-visualized. RIGHT KIDNEY: Measures 10.5 x 8.0 x 4.6cm. Normal echogenicity. No calculus, mass, or hydronephrosis. LEFT KIDNEY: Measures 10.7 x 4.8 x 6.1cm. Normal echogenicity. No calculus, mass, or hydronephrosis. SPLEEN: Enlarged, measuring 14.6 centimeter. AORTA: No aneurysmal dilatation. IVC: Unremarkable. OTHER FINDINGS: Small to moderate perihepatic ascites. IMPRESSION: Hepatosplenomegaly with hepatic cirrhosis and small to moderate perihepatic ascites. Gallbladder sludge with wall thickening. Gallbladder wall thickening is a nonspecific finding which can be seen with ascites, hepatitis, cholecystitis, CHF or hypoproteinemic states. Clinical correlation is recommended. If clinical concern for gallbladder pathology exists, a HIDA scan may be performed.
[2017-03-03] MEDS ORDERED: fentaNYL 1,000 MCG in Sodium Chloride 0.9% 80 ML IV SCH (10:30)
[2017-03-03] MEDS: Sodium Chloride 0.45% 500ml 1,000 ML IV SCH (12:29)
--- NOTE | 2017-03-03 12:45 | CP.PCM.PN ---
Subjective - Date & Time of Evaluation Date of Evaluation: 03/03/17 Time of Evaluation: 08:00 - Subjective Subjective: events noted intubated on propofol CT abd pending Objective - Vital Signs/Intake and Output Vital Signs (last 24 hours): Temp Pulse Resp BP Pulse Ox 98.0 F 88 30 H 121/65 99 03/03/17 12:00 03/03/17 12:00 03/03/17 12:00 03/03/17 12:00 03/03/17 12:00 Intake and Output: 03/03/17 03/03/17 06:59 18:59 Intake Total 1071.000 490 Output Total 200 Balance 871.000 490 - Medications Medications: Current Medications Acetaminophen (Tylenol 325mg Tab) 650 mg PO Q6H PRN PRN Reason: Pain, Mild (1-3) Acetaminophen (Tylenol 325mg Tab) 650 mg PO Q6H PRN PRN Reason: Fever >100.4 F Albuterol/Ipratropium (Duoneb 3 Mg/0.5 Mg (3 Ml) Ud) 3 ml INH RQ4 PRN PRN Reason: Shortness of Breath Albuterol/Ipratropium (Duoneb 3 Mg/0.5 Mg (3 Ml) Ud) 3 ml INH RQ4 [facility] Last Admin: 03/03/17 11:28 Dose: 3 ml Clonidine HCl (Catapres) 0.5 mg PO BID PRN PRN Reason: Agitation Enoxaparin Sodium (Lovenox) 40 mg SC DAILY [facility] PRN Reason: Protocol Last Admin: 03/03/17 09:30 Dose: 40 mg Folic Acid (Folic Acid) 1 mg PO DAILY [facility] Last Admin: 03/03/17 09:29 Dose: 1 mg Propofol (Diprivan) 1,000 mg in 100 mls @ 2.966 mls/hr IV .Q24H [facility]; 5 MCG/KG/ MIN PRN Reason: Protocol Stop: 03/03/17 20:19 Last Titration: 03/03/17 11:33 Dose: 30 mcg/kg/min, 17.799 mls/hr Tigecycline 50 mg/ Sodium (Chloride) 100 mls @ 100 mls/hr IVPB Q12H [facility] PRN Reason: Protocol Last Admin: 03/03/17 05:13 Dose: 100 mls/hr Fentanyl 1,000 mcg/ Sodium (Chloride) 100 mls @ 2 mls/hr IV .Q24H [facility] PRN Reason: Protocol Last Admin: 03/03/17 12:24 Dose: 2 mls/hr Sodium Chloride (Sodium Chloride 0.45%) 1,000 mls @ 75 mls/hr IV .[id number] [facility] Stop: 03/04/17 11:57 Last Admin: 03/03/17 12:29 Dose: 75 mls/hr Lactulose (Enulose) 20 gm PO QID [facility] Last Admin: 03/03/17 09:29 Dose: 20 gm Lidocaine (Lidoderm) 1 ea TD DAILY [facility] Last Admin: 03/03/17 09:04 Dose: 1 ea Methylprednisolone (Solu-Medrol) 80 mg IV Q6 [facility] Last Admin: 03/03/17 04:33 Dose: 80 mg Methylprednisolone (Solu-Medrol) 40 mg IVP Q8 [facility] Last Admin: 03/03/17 09:01 Dose: 40 mg Morphine Sulfate (Morphine) 2 mg IVP Q4 PRN PRN Reason: Pain, severe (8-10) Last Admin: 03/03/17 02:14 Dose: 2 mg Multivitamins/Minerals (Therapeutic-M Tab) 1 tab PO DAILY [facility] Last Admin: 03/03/17 09:02 Dose: 1 tab Nystatin (Mycostatin Cream) 1 applic TOP TID [facility] Last Admin: 03/03/17 09:00 Dose: 1 applic Nystatin (Nystop Topical Powder) 1 applic TOP QID [facility] Last Admin: 03/03/17 09:01 Dose: 1 applic Pantoprazole Sodium (Protonix Inj) 40 mg IVP DAILY [facility] Last Admin: 03/03/17 08:59 Dose: 40 mg Rifaximin (Xifaxan) 550 mg PO BID [facility] PRN Reason: Protocol Last Admin: 03/03/17 09:03 Dose: 550 mg Fluticasone/Salmeterol (Advair Diskus 250/50) 1 puff IH Q12 [facility] Last Admin: 03/03/17 09:24 Dose: Not Given Thiamine HCl (Vitamin B1 Tab) 100 mg PO DAILY [facility] Last Admin: 03/03/17 08:59 Dose: 100 mg - Labs Labs: 03/03/17 04:40 03/03/17 04:40 PT 19.5 Seconds (9.8-13.1) H 03/02/17 08:11 INR 1.7 (0.9-1.2) H 03/02/17 08:11 APTT 30.4 Seconds (25.6-37.1) 03/02/17 08:11 - Constitutional Appears: Chronically Ill - Head Exam Head Exam: NORMOCEPHALIC - Eye Exam Eye Exam: PERRL - ENT Exam ENT Exam: Mucous Membranes Dry - Neck Exam Neck Exam: absent: Lymphadenopathy - Respiratory Exam Respiratory Exam: Decreased Breath Sounds, Rhonchi - Cardiovascular Exam Cardiovascular Exam: REGULAR RHYTHM - GI/Abdominal Exam GI & Abdominal Exam: Distended - Rectal Exam Rectal Exam: Deferred - Exam Exam: NORMAL INSPECTION - Extremities Exam Extremities Exam: absent: Pedal Edema Assessment and Plan (1) Acute and chronic respiratory failure with hypercapnia Status: Acute (2) Hepatic encephalopathy Status: Acute - Assessment and Plan (Free Text) Assessment: resp failure abd pain- etiology to be determined cirrhosis CHF COPD pneumonia UTI sepsis cont supportive rx
--- NOTE | 2017-03-03 13:01 | CP.CCUPN ---
CCU Subjective - Physician Review Subjective (Free Text): Patient admitted to ICU for seere COPD exacerbation, wheezing currently 03/03/17 12:59 Critical Care Time Spent (in minutes): 34 CCU Objective - Vital Signs / Intake & Output Vital Signs (Last 4 hours): Vital Signs Temp Pulse Resp BP Pulse Ox 03/03/17 12:00 98.0 F 88 30 H 121/65 99 03/03/17 11:00 71 18 92/57 L 100 03/03/17 10:00 78 18 116/60 100 03/03/17 09:00 99 H 20 171/88 H 100 Intake and Output (Last 8hrs): Intake & Output 03/02/17 03/03/17 03/03/17 22:59 06:59 14:59 Intake Total 314.623 756.377 490 Output Total 200 Balance 314.623 556.377 490 Weight 194 lb Intake: IV 304.623 610.377 390 Intake, Piggyback 10 146 Free Water Flush 100 Output: Urine 200 Urethral (Gaffney) 200 - Physical Exam Physical Exam Limitations: Positive for: Altered Mental Status Head: Positive for: Atraumatic, Normocephalic. Negative for: Tenderness, Contusion, Swelling, Ecchymosis Pupils: Positive for: PERRL, Sluggish Conjunctiva: Positive for: Icteric. Negative for: Injected Ears: Positive for: Normal Mouth: Positive for: Moist Mucous Membranes Neck: Positive for: Normal Range of Motion, Trachea Midline. Negative for: Meningeal Signs, MIDLINE TENDERNESS, Paraspinal Tenderness, JVD, Lymphadenopathy , Bruit, Other Respiratory/Chest: Positive for: Accessory Muscle Use, Wheezes, Decreased Breath Sounds, Rales, Rhonchi, Tachypneic. Negative for: Good Air Exchange, Respiratory Distress Cardiovascular: Positive for: Normal S1, S2, Peripheal Pulses Present, Tachycardic. Negative for: Murmurs, Irregular Rhythm Abdomen: Positive for: Distention, Normal Bowel Sounds, Peritoneal Signs. Negative for: Tenderness Back: Negative for: CVA Tenderness Upper Extremity: Positive for: Normal Inspection, NORMAL PULSES. Negative for: Cyanosis, Edema Lower Extremity: Positive for: Normal Inspection, NORMAL PULSES, Capillary Refill < 2 s. Negative for: Edema, CALF TENDERNESS Neurological: Positive for: Other (Lethargic) Skin: Positive for: Warm. Negative for: Rashes Psychiatric: Negative for: Alert, Oriented x 3, Normal Insight - Medications Active Medications: Active Medications Generic Name Dose Route Start Last Admin Trade Name Freq PRN Reason Stop Dose Admin Acetaminophen 650 mg 03/02/17 20:39 Tylenol 325mg Tab PO Q6H PRN Pain, Mild (1-3) Acetaminophen 650 mg 03/02/17 20:39 Tylenol 325mg Tab PO Q6H PRN Fever >100.4 F Albuterol/Ipratropium 3 ml 03/02/17 20:39 Duoneb 3 Mg/0.5 Mg (3 Ml) Ud INH RQ4 PRN Shortness of Breath Albuterol/Ipratropium 3 ml 03/03/17 00:00 03/03/17 11:28 Duoneb 3 Mg/0.5 Mg (3 Ml) Ud INH 3 ml RQ4 [facility] Administration Clonidine HCl 0.5 mg 03/02/17 20:39 Catapres PO BID PRN Agitation Enoxaparin Sodium 40 mg 03/03/17 09:00 03/03/17 09:30 Lovenox SC 40 mg DAILY [facility] Administration Protocol Folic Acid 1 mg 03/03/17 09:00 03/03/17 09:29 Folic Acid PO 1 mg DAILY [facility] Administration Propofol 1,000 mg in 100 mls @ 2.966 mls/hr 03/02/17 20:39 03/03/17 11:33 Diprivan IV 03/03/17 20:19 30 mcg/kg/min .Q24H [facility] 17.799 mls/hr Protocol Titration 5 MCG/KG/MIN Tigecycline 50 mg/ Sodium 100 mls @ 100 mls/hr 03/03/17 05:00 03/03/17 05:13 Chloride IVPB 100 mls/hr Q12H [facility] Administration Protocol Fentanyl 1,000 mcg/ Sodium 100 mls @ 2 mls/hr 03/03/17 10:30 03/03/17 12:24 Chloride IV 2 mls/hr .Q24H [facility] Administration Protocol Sodium Chloride 1,000 mls @ 75 mls/hr 03/03/17 12:00 03/03/17 12:29 Sodium Chloride 0.45% IV 03/04/17 11:57 75 mls/hr .[id number] [facility] Administration Lactulose 20 gm 03/02/17 22:00 03/03/17 09:29 Enulose PO 20 gm QID [facility] Administration Lidocaine 1 ea 03/03/17 09:00 03/03/17 09:04 Lidoderm TD 1 ea DAILY [facility] Administration Methylprednisolone 80 mg 03/02/17 22:00 03/03/17 04:33 Solu-Medrol IV 80 mg Q6 [facility] Administration Methylprednisolone 40 mg 03/03/17 01:00 03/03/17 09:01 Solu-Medrol IVP 40 mg Q8 [facility] Administration Morphine Sulfate 2 mg 03/02/17 20:39 03/03/17 02:14 Morphine IVP 2 mg Q4 PRN Administration Pain, severe (8-10) Multivitamins/Minerals 1 tab 03/03/17 09:00 03/03/17 09:02 Therapeutic-M Tab PO 1 tab DAILY [facility] Administration Nystatin 1 applic 03/03/17 09:00 03/03/17 09:00 Mycostatin Cream TOP 1 applic TID [facility] Administration Nystatin 1 applic 03/02/17 22:00 03/03/17 09:01 Nystop Topical Powder TOP 1 applic QID [facility] Administration Pantoprazole Sodium 40 mg 03/03/17 09:00 03/03/17 08:59 Protonix Inj IVP 40 mg DAILY [facility] Administration Rifaximin 550 mg 03/03/17 09:00 03/03/17 09:03 Xifaxan PO 550 mg BID [facility] Administration Protocol Fluticasone/Salmeterol 1 puff 03/02/17 21:00 03/03/17 09:24 Advair Diskus 250/50 IH Not Given Q12 [facility] Thiamine HCl 100 mg 03/03/17 09:00 03/03/17 08:59 Vitamin B1 Tab PO 100 mg DAILY [facility] Administration - Patient Studies Lab Studies: Microbiology Studies 02/27/17 12:40 Blood Culture - Preliminary Blood NO GROWTH AFTER 3 DAYS 02/27/17 22:50 Blood Culture - Preliminary Blood NO GROWTH AFTER 3 DAYS 02/28/17 12:30 Urine Culture - Final Urine,Clean Catch Escherichia Coli Enterococcus Faecium Lab Studies 03/03/17 03/03/17 03/03/17 Range/Units 06:41 04:40 04:40 WBC 8.8 (4.8-10.8) K/uL RBC 2.71 L (3.80-5.20) Mil/uL Hgb 9.4 L (12.0-16.0) g/dL Hct 28.8 L (34.0-47.0) % MCV 106.4 H D (81.0-99.0) fl MCH 34.7 H (27.0-31.0) pg MCHC 32.6 L (33.0-37.0) g/dL RDW 16.7 H (11.5-14.5) % Plt Count 156 (130-400) K/uL MPV 8.1 (7.2-11.7) fl Neut % (Auto) 85.7 H (50.0-75.0) % Lymph % (Auto) 8.6 L (20.0-40.0) % Nobles % (Auto) 5.3 (0.0-10.0) % Eos % (Auto) 0.1 (0.0-4.0) % Baso % (Auto) 0.3 (0.0-2.0) % Neut # 7.5 H (1.8-7.0) K/uL Lymph # 0.8 L (1.0-4.3) K/uL Nobles # 0.5 (0.0-0.8) K/uL Eos # 0.0 (0.0-0.7) K/uL Baso # 0.0 (0.0-0.2) K/uL Neutrophils % (Manual) 83 H (42-75) % Lymphocytes % (Manual) 11 L (20-50) % Monocytes % (Manual) 6 (0-10) % Platelet Estimate Normal (NORMAL) Macrocytosis (manual) Slight pCO2 49 H (35-45) mm/Hg pO2 97 (80-100) mm/Hg HCO3 30.6 H (21-28) mmol/L ABG pH 7.43 (7.35-7.45) ABG Total CO2 34.0 H (22-28) mmol/L ABG O2 Saturation 99.9 H (95-98) % ABG O2 Content 12.7 L (15-23) ML/dL ABG Base Excess 7.3 H (-2.0-3.0) mmol/L ABG Hemoglobin 9.2 L (11.7-17.4) g/dL ABG Carboxyhemoglobin 1.9 H (0.5-1.5) % POC ABG HHb (Measured) 0.1 (0.0-5.0) % ABG Methemoglobin 1.4 (0.0-3.0) % ABG O2 Capacity 12.7 L (16-24) mL/dL Dick Test Yes ABG Potassium (3.6-5.2) mmol/L A-a O2 Difference 270.0 mm/Hg Hgb O2 Saturation 96.6 (95.0-98.0) % Sodium 141 (132-148) mmol/L Chloride 104 (98-107) mmol/L Glucose (65-105) mg/dL Lactate (0.7-2.1) mmol/L Vent Mode A/c Mechanical Rate 18 FiO2 60.0 % Tidal Volume 500 PEEP 5 Crit Value Called To Crit Value Called By Crit Value Read Back Blood Gas Notified Time Potassium 4.2 (3.6-5.0) MMOL/L Carbon Dioxide 34 H (22-30) mmol/L Anion Gap 7 L (10-20) BUN 31 H (7-17) mg/dl Creatinine 0.7 (0.7-1.2) mg/dl Est GFR ( Amer) > 60 Est GFR (Non-Af Amer) > 60 Random Glucose 125 H (65-105) mg/dL Calcium 9.5 (8.4-10.2) mg/dL Total Bilirubin 2.0 H (0.2-1.3) mg/dl AST 69 H (14-36) U/L ALT 58 H (9-52) U/L Alkaline Phosphatase 136 H (38-126) U/L Total Protein 7.0 (6.3-8.2) G/DL Albumin 2.9 L (3.5-5.0) g/dL Globulin 4.1 H (2.2-3.9) gm/dL Albumin/Globulin Ratio 0.7 L (1.0-2.1) Arterial Blood Potassium (3.6-5.2) mmol/L Urine Color (YELLOW) Urine Clarity (Clear) Urine pH (5.0-8.0) Ur Specific [place] (1.003-1.030) Urine Protein (NEGATIVE) mg/dL Urine Glucose (UA) (Normal) mg/dL Urine Ketones (NEGATIVE) mg/dL Urine Blood (NEGATIVE) Urine Nitrate (NEGATIVE) Urine Bilirubin (NEGATIVE) Urine Urobilinogen (0.2-1.0) mg/dL Ur Leukocyte Esterase (Negative) Rj/uL Urine RBC (Auto) (0-3) /hpf Urine Microscopic WBC (0-5) /hpf Ur Squamous Epith Cells (0-5) /hpf Urine Bacteria (<OCC) 03/02/17 03/02/17 03/02/17 Range/Units 23:43 21:28 17:48 WBC (4.8-10.8) K/uL RBC (3.80-5.20) Mil/uL Hgb (12.0-16.0) g/dL Hct (34.0-47.0) % MCV (81.0-99.0) fl MCH (27.0-31.0) pg MCHC (33.0-37.0) g/dL RDW (11.5-14.5) % Plt Count (130-400) K/uL MPV (7.2-11.7) fl Neut % (Auto) (50.0-75.0) % Lymph % (Auto) (20.0-40.0) % Nobles % (Auto) (0.0-10.0) % Eos % (Auto) (0.0-4.0) % Baso % (Auto) (0.0-2.0) % Neut # (1.8-7.0) K/uL Lymph # (1.0-4.3) K/uL Nobles # (0.0-0.8) K/uL Eos # (0.0-0.7) K/uL Baso # (0.0-0.2) K/uL Neutrophils % (Manual) (42-75) % Lymphocytes % (Manual) (20-50) % Monocytes % (Manual) (0-10) % Platelet Estimate (NORMAL) Macrocytosis (manual) pCO2 56 H 109 H* (35-45) mm/Hg pO2 74 L 62 L (80-100) mm/Hg HCO3 29.8 H 25.8 (21-28) mmol/L ABG pH 7.38 7.11 L* (7.35-7.45) ABG Total CO2 34.8 H 37.9 H (22-28) mmol/L ABG O2 Saturation 99.6 H 92.5 L (95-98) % ABG O2 Content (15-23) ML/dL ABG Base Excess 6.3 H 1.6 (-2.0-3.0) mmol/L ABG Hemoglobin (11.7-17.4) g/dL ABG Carboxyhemoglobin (0.5-1.5) % POC ABG HHb (Measured) (0.0-5.0) % ABG Methemoglobin (0.0-3.0) % ABG O2 Capacity (16-24) mL/dL Dick Test Yes Yes ABG Potassium 3.9 4.4 (3.6-5.2) mmol/L A-a O2 Difference 284.0 372.0 mm/Hg Hgb O2 Saturation (95.0-98.0) % Sodium 141.0 141.0 (132-148) mmol/L Chloride 107.0 106.0 (98-107) mmol/L Glucose 155 H 190 H (65-105) mg/dL Lactate 1.7 0.9 (0.7-2.1) mmol/L Vent Mode Prvc/ac Mechanical Rate 18 FiO2 60.0 80.0 % Tidal Volume 500 PEEP 5 Crit Value Called To say Whelan Crit Value Called By 203 Crit Value Read Back Y Blood Gas Notified Time 1754 Potassium (3.6-5.0) MMOL/L Carbon Dioxide (22-30) mmol/L Anion Gap (10-20) BUN (7-17) mg/dl Creatinine (0.7-1.2) mg/dl Est GFR ( Amer) Est GFR (Non-Af Amer) Random Glucose (65-105) mg/dL Calcium (8.4-10.2) mg/dL Total Bilirubin (0.2-1.3) mg/dl AST (14-36) U/L ALT (9-52) U/L Alkaline Phosphatase (38-126) U/L Total Protein (6.3-8.2) G/DL Albumin (3.5-5.0) g/dL Globulin (2.2-3.9) gm/dL Albumin/Globulin Ratio (1.0-2.1) Arterial Blood Potassium 3.9 4.4 (3.6-5.2) mmol/L Urine Color Red (YELLOW) Urine Clarity Turbid (Clear) Urine pH 5.0 (5.0-8.0) Ur Specific [place] 1.019 (1.003-1.030) Urine Protein 100 (NEGATIVE) mg/dL Urine Glucose (UA) Neg (Normal) mg/dL Urine Ketones Negative (NEGATIVE) mg/dL Urine Blood Large (NEGATIVE) Urine Nitrate Negative (NEGATIVE) Urine Bilirubin Negative (NEGATIVE) Urine Urobilinogen 4.0 H (0.2-1.0) mg/dL Ur Leukocyte Esterase Neg (Negative) Rj/uL Urine RBC (Auto) 500 H (0-3) /hpf Urine Microscopic WBC 30 H (0-5) /hpf Ur Squamous Epith Cells 3 (0-5) /hpf Urine Bacteria Few H (<OCC) Laboratory Results - last 24 hr 03/02/17 03/02/17 03/02/17 17:48 21:28 23:43 WBC RBC Hgb Hct MCV MCH MCHC RDW Plt Count MPV Neut % (Auto) Lymph % (Auto) Nobles % (Auto) Eos % (Auto) Baso % (Auto) Neut # Lymph # Nobles # Eos # Baso # Neutrophils % (Manual) Lymphocytes % (Manual) Monocytes % (Manual) Platelet Estimate Macrocytosis (manual) pCO2 109 H* 56 H pO2 62 L 74 L HCO3 25.8 29.8 H ABG pH 7.11 L* 7.38 ABG Total CO2 37.9 H 34.8 H ABG O2 Saturation 92.5 L 99.6 H ABG O2 Content ABG Base Excess 1.6 6.3 H ABG Hemoglobin ABG Carboxyhemoglobin POC ABG HHb (Measured) ABG Methemoglobin ABG O2 Capacity Dick Test Yes Yes ABG Potassium 4.4 3.9 A-a O2 Difference 372.0 284.0 Hgb O2 Saturation Sodium 141.0 141.0 Chloride 106.0 107.0 Glucose 190 H 155 H Lactate 0.9 1.7 Vent Mode Prvc/ac Mechanical Rate 18 FiO2 80.0 60.0 Tidal Volume 500 PEEP 5 Crit Value Called To say Whelan Crit Value Called By 203 Crit Value Read Back Y Blood Gas Notified Time 1754 Potassium Carbon Dioxide Anion Gap BUN Creatinine Est GFR ( Amer) Est GFR (Non-Af Amer) Random Glucose Calcium Total Bilirubin AST ALT Alkaline Phosphatase Total Protein Albumin Globulin Albumin/Globulin Ratio Arterial Blood Potassium 4.4 3.9 Urine Color Red Urine Clarity Turbid Urine pH 5.0 Ur Specific [place] 1.019 Urine Protein 100 Urine Glucose (UA) Neg Urine Ketones Negative Urine Blood Large Urine Nitrate Negative Urine Bilirubin Negative Urine Urobilinogen 4.0 H Ur Leukocyte Esterase Neg Urine RBC (Auto) 500 H Urine Microscopic WBC 30 H Ur Squamous Epith Cells 3 Urine Bacteria Few H 03/03/17 03/03/17 03/03/17 04:40 04:40 06:41 WBC 8.8 RBC 2.71 L Hgb 9.4 L Hct 28.8 L MCV 106.4 H D MCH 34.7 H MCHC 32.6 L RDW 16.7 H Plt Count 156 MPV 8.1 Neut % (Auto) 85.7 H Lymph % (Auto) 8.6 L Nobles % (Auto) 5.3 Eos % (Auto) 0.1 Baso % (Auto) 0.3 Neut # 7.5 H Lymph # 0.8 L Nobles # 0.5 Eos # 0.0 Baso # 0.0 Neutrophils % (Manual) 83 H Lymphocytes % (Manual) 11 L Monocytes % (Manual) 6 Platelet Estimate Normal Macrocytosis (manual) Slight pCO2 49 H pO2 97 HCO3 30.6 H ABG pH 7.43 ABG Total CO2 34.0 H ABG O2 Saturation 99.9 H ABG O2 Content 12.7 L ABG Base Excess 7.3 H ABG Hemoglobin 9.2 L ABG Carboxyhemoglobin 1.9 H POC ABG HHb (Measured) 0.1 ABG Methemoglobin 1.4 ABG O2 Capacity 12.7 L Dick Test Yes ABG Potassium A-a O2 Difference 270.0 Hgb O2 Saturation 96.6 Sodium 141 Chloride 104 Glucose Lactate Vent Mode A/c Mechanical Rate 18 FiO2 60.0 Tidal Volume 500 PEEP 5 Crit Value Called To Crit Value Called By Crit Value Read Back Blood Gas Notified Time Potassium 4.2 Carbon Dioxide 34 H Anion Gap 7 L BUN 31 H Creatinine 0.7 Est GFR ( Amer) > 60 Est GFR (Non-Af Amer) > 60 Random Glucose 125 H Calcium 9.5 Total Bilirubin 2.0 H AST 69 H ALT 58 H Alkaline Phosphatase 136 H Total Protein 7.0 Albumin 2.9 L Globulin 4.1 H Albumin/Globulin Ratio 0.7 L Arterial Blood Potassium Urine Color Urine Clarity Urine pH Ur Specific [place] Urine Protein Urine Glucose (UA) Urine Ketones Urine Blood Urine Nitrate Urine Bilirubin Urine Urobilinogen Ur Leukocyte Esterase Urine RBC (Auto) Urine Microscopic WBC Ur Squamous Epith Cells Urine Bacteria Critical Care Progress Note - Ventilator Checklist Daily Sedation Vacation: Yes Daily Assessment of Readiness to Wean: Yes Daily Spontaneous Breathing Trial: Yes PUD Prophalyxis: Yes DVT Prophylaxis: Yes Oral Care with Chlorhexidine Gluconate {CHG}: Yes - Nutrition Nutrition: Nutrition Category Date Time Status NPO Diet [DIET] Diets 03/01/17 Breakfast Active Assessment/Plan - Assessment and Plan (Free Text) Plan: -Acute respiratory failure with hypoxemia and Hypercapnia/COPD exacerbation: continue ventilation to keep spo2 >92 and Ph b/w 7.35-7.45, continue IV steroids , peak pressure high -lobar pneumonia : empirically on ABx, obtain sputum culture -Abdominal distension: place NG tube to suction, NPO, CT abd/pelvis -transaminitis:check RUQ US, surgery input Aggressive pulmonary toilet, chest PT, suctioning Send tracheal aspirate for gram stain and C/S Maintain aspiration precautions Surgery and ID consult appreciated GI/DVT PPX Prognosis guarded as etiology of abdominal fluid unknown.
[2017-03-03] MEDS ORDERED: Iohexol 300 100 ML IJ ONE (13:08)
[2017-03-03] MEDS ORDERED: Sodium Chloride 0.9% 50 ML IV ONE (13:08)
--- NOTE | 2017-03-03 15:16 | CT ---
PROCEDURE: CT Abdomen and Pelvis with contrast HISTORY: abdominal pain COMPARISON: 02/17/2017 TECHNIQUE: Contrast dose: 95 cc Omnipaque 300 Radiation dose: Total exam DLP = 1154.04 mGy-cm. This CT exam was performed using one or more of the following dose reduction techniques: Automated exposure control, adjustment of the mA and/or kV according to patient size, and/or use of iterative reconstruction technique. FINDINGS: LOWER THORAX: Progressive multifocal infiltrates LIVER: No significant interval change compared to the prior examination(s). The liver is mildly cirrhotic appearing, hepatomegaly, hepatic steatosis. Patent portal venous system and varices identified about the liver edge GALLBLADDER AND BILE DUCTS: Unremarkable. PANCREAS: Unremarkable. No gross lesion or ductal dilatation. SPLEEN: Unremarkable. ADRENALS: Unremarkable. No mass. KIDNEYS AND URETERS: Unremarkable. No hydronephrosis. No solid mass. VASCULATURE: Unremarkable. No aortic aneurysm. BOWEL: Unremarkable. No obstruction. No gross mural thickening. Nasogastric tube in satisfactory position within the stomach. APPENDIX: Normal appendix. PERITONEUM: Interval increase in abdominal ascites. LYMPH NODES: Unremarkable. No enlarged lymph nodes. BLADDER: Gaffney catheter identified in a decompressed urinary bladder. REPRODUCTIVE: Unremarkable. BONES: No acute fracture. OTHER FINDINGS: Status arc identified on the prior study is approximately stable. IMPRESSION: Increasing abdominal and pelvic ascites. Progressive incompletely visualized lower lobe multifocal and bilateral infiltrates. Nasogastric tube in satisfactory position.
[2017-03-03] MEDS ORDERED: Propofol 10 mg/ml 1,000 MG/100 ML VIAL IV SCH (20:45)
[2017-03-04] MEDS: Propofol 10 mg/ml 1,000 MG/100 ML VIAL IV SCH ×2 (00:10→08:21)
[2017-03-04] MEDS: MethylPREDNISolone 40 mg Vial IVP SCH ×3 (01:19→16:20)
[2017-03-04] MEDS: Sodium Chloride 0.45% 1,000 ML IV SCH ×2 (01:30→16:18)
[2017-03-04] MEDS: Sodium Chloride 0.45% 500ml 1,000 ML IV SCH (01:53)
[2017-03-04] MEDS: fentaNYL 1,000 MCG in Sodium Chloride 0.9% 80 ML IV SCH ×4 (04:45→23:56)
[2017-03-04] MEDS: Albuterol-Ipratrop 3 mg / 0.5 (3 ml) UD INH SCH ×7 (05:24→23:50)
[2017-03-04 05:51] LABS: ABG ALLEN TEST YES; ARTERIAL BLOOD GAS HCO3 30.3 mmol/L (21-28); ARTERIAL BLOOD GAS HEMOGLOBIN 9.3 g/dL (11.7-17.4); ARTERIAL BLOOD GAS O2 CAPACITY 13.1 mL/dL (16-24); ARTERIAL BLOOD GAS O2 CONTENT 13.2 ML/dL (15-23); ARTERIAL BLOOD GAS O2 SAT 100.4 % (95-98); ARTERIAL BLOOD GAS PCO2 38 mm/Hg (35-45); ARTERIAL BLOOD GAS PH 7.51 (7.35-7.45); ARTERIAL BLOOD GAS PO2 156 mm/Hg (80-100); ARTERIAL BLOOD GAS TCO2 31.5 mmol/L (22-28)
[2017-03-04 06:11] LABS: HEMOGLOBIN 9.4 g/dL (12.0-16.0); MEAN CELL VOLUME 104.3 fl (81.0-99.0); MEAN CORPUSCULAR HEMOGLOBIN 34.3 pg (27.0-31.0); MEAN CORPUSCULAR HGB CONC 32.9 g/dL (33.0-37.0); RBC 2.74 Mil/uL (3.80-5.20); RED CELL DISTRIBUTION WIDTH 16.9 % (11.5-14.5); WHITE BLOOD COUNT 8.8 K/uL (4.8-10.8)
[2017-03-04 06:26] LABS: ALB/GLOB RATIO 0.7 (1.0-2.1); ALBUMIN 2.8 g/dL (3.5-5.0); ALT/SGPT 53 U/L (9-52); AST/SGOT 51 U/L (14-36); BLOOD UREA NITROGEN 44 mg/dl (7-17); CALCIUM 9.3 mg/dL (8.4-10.2); GFR AFRICAN-AMERICAN > 60; GFR NON-AFRICAN AMERICAN > 60
--- NOTE | 2017-03-04 08:15 | CP.PCM.PN ---
Subjective - Date & Time of Evaluation Date of Evaluation: 03/04/17 Time of Evaluation: 07:30 - Subjective Subjective: General surgery consult note for Dr. Anastasia Espino, PGY-1 Pt S & E at bedside. pt intubated/sedated on propofol, transferred to unit since yesterday. Pt arousable to tactile stimuli, with signs of agitation requiring sedation. PRVC RR 18, TV 500, PEEP 5, FiO2 60%. Afebrile overnight. No other events. Objective - Vital Signs/Intake and Output Vital Signs (last 24 hours): Temp Pulse Resp BP Pulse Ox 97.7 F 62 18 96/56 L 100 03/04/17 05:54 03/04/17 06:58 03/04/17 06:58 03/04/17 06:58 03/04/17 06:58 Intake and Output: 03/04/17 03/04/17 06:59 18:59 Intake Total 1020 195 Output Total 300 Balance 720 195 - Medications Medications: Current Medications Acetaminophen (Tylenol 325mg Tab) 650 mg PO Q6H PRN PRN Reason: Pain, Mild (1-3) Acetaminophen (Tylenol 325mg Tab) 650 mg PO Q6H PRN PRN Reason: Fever >100.4 F Albuterol/Ipratropium (Duoneb 3 Mg/0.5 Mg (3 Ml) Ud) 3 ml INH RQ4 REPLACED BY [facility] Last Admin: 03/04/17 07:31 Dose: 3 ml Enoxaparin Sodium (Lovenox) 40 mg SC DAILY [facility] PRN Reason: Protocol Last Admin: 03/03/17 09:30 Dose: 40 mg Folic Acid (Folic Acid) 1 mg PO DAILY REPLACED BY [facility] Last Admin: 03/03/17 09:29 Dose: 1 mg Tigecycline 50 mg/ Sodium (Chloride) 100 mls @ 100 mls/hr IVPB Q12H [facility] PRN Reason: Protocol Last Admin: 03/04/17 05:38 Dose: 100 mls/hr Sodium Chloride (Sodium Chloride 0.45%) 1,000 mls @ 75 mls/hr IV .[id number] REPLACED BY [facility] Stop: 03/04/17 11:57 Last Admin: 03/04/17 01:53 Dose: Not Given Propofol (Diprivan) 1,000 mg in 100 mls @ 18.479 mls/hr IV .[id number] [facility]; 35 MCG/ KG/MIN PRN Reason: Protocol Stop: 03/04/17 20:41 Last Titration: 03/04/17 06:48 Dose: 10 mcg/kg/min, 5.28 mls/hr Sodium Chloride (Sodium Chloride 0.45%) 1,000 mls @ 75 mls/hr IV .[id number] [facility] Stop: 03/05/17 01:49 Last Admin: 03/04/17 01:30 Dose: 75 mls/hr Fentanyl 1,000 mcg/ Sodium (Chloride) 100 mls @ 8.79 mls/hr IV .[id number] [facility]; 1 MCG/KG/HR PRN Reason: Protocol Last Titration: 03/04/17 05:30 Dose: 2 mcg/kg/hr, 17.59 mls/hr Lactulose (Enulose) 20 gm PO QID REPLACED BY [facility] Last Admin: 03/03/17 22:00 Dose: 20 gm Lidocaine (Lidoderm) 1 ea TD DAILY REPLACED BY [facility] Last Admin: 03/03/17 09:04 Dose: 1 ea Methylprednisolone (Solu-Medrol) 40 mg IVP Q8 [facility] Last Admin: 03/04/17 01:19 Dose: 40 mg Multivitamins/Minerals (Therapeutic-M Tab) 1 tab PO DAILY [facility] Last Admin: 03/03/17 09:02 Dose: 1 tab Nystatin (Mycostatin Cream) 1 applic TOP TID [facility] Last Admin: 03/03/17 16:13 Dose: 1 applic Nystatin (Nystop Topical Powder) 1 applic TOP QID REPLACED BY [facility] Last Admin: 03/03/17 23:00 Dose: 1 applic Pantoprazole Sodium (Protonix Inj) 40 mg IVP DAILY REPLACED BY [facility] Last Admin: 03/03/17 08:59 Dose: 40 mg Rifaximin (Xifaxan) 550 mg PO BID [facility] PRN Reason: Protocol Last Admin: 03/03/17 16:12 Dose: 550 mg Thiamine HCl (Vitamin B1 Tab) 100 mg PO DAILY [facility] Last Admin: 03/03/17 08:59 Dose: 100 mg - Labs Labs: 03/04/17 04:30 03/04/17 04:30 PT 19.5 Seconds (9.8-13.1) H 03/02/17 08:11 INR 1.7 (0.9-1.2) H 03/02/17 08:11 APTT 30.4 Seconds (25.6-37.1) 03/02/17 08:11 - Constitutional Appears: Non-toxic, No Acute Distress - Head Exam Head Exam: ATRAUMATIC, NORMAL INSPECTION, NORMOCEPHALIC - Eye Exam Eye Exam: EOMI, Normal appearance - ENT Exam ENT Exam: Mucous Membranes Dry Additional comments: ET in place - Respiratory Exam Respiratory Exam: NORMAL BREATHING PATTERN (on mechanical vent) - Cardiovascular Exam Cardiovascular Exam: REGULAR RHYTHM, +S1, +S2 - GI/Abdominal Exam GI & Abdominal Exam: Soft. absent: Distended (obese), Firm - Neurological Exam Neurological Exam: absent: Alert, Awake, Oriented x3 Additional comments: intubated, sedated, arousable to tactile stimuli - Psychiatric Exam Additional comments: intubated, sedated, non verbal - Skin Skin Exam: Dry, Intact, Warm Assessment and Plan - Assessment and Plan (Free Text) Assessment: 51F w/multiple co-morbidities consulted for abdominal pain, currently requiring mechanical ventilation/sedation, ICU care Plan: CT ab w/contrast positive for pelvic and abdominal ascites No surgical intervention at this time Thank you for this consult Please re-consult as needed DW attending Ken[place], PGY-1
[2017-03-04] MEDS: Enoxaparin 40 mg Syringe SC SCH (08:23)
[2017-03-04] MEDS: Lidocaine 5% Patch TD SCH (08:23)
--- NOTE | 2017-03-04 08:24 | CP.PCM.PN ---
Subjective - Date & Time of Evaluation Date of Evaluation: 03/04/17 Time of Evaluation: 07:10 - Subjective Subjective: Patient seen and examined bedside with Dr gama in ICU. Patient on ventilator PRVC/AC 18 PeeP 5 FIO2 60 % , comatose, arousable to tactile stimuli.soria draining to dark josh urine. Will consult GI to consider paracentesis. Objective - Vital Signs/Intake and Output Vital Signs (last 24 hours): Temp Pulse Resp BP Pulse Ox 97.7 F 62 18 96/56 L 100 03/04/17 05:54 03/04/17 06:58 03/04/17 06:58 03/04/17 06:58 03/04/17 06:58 Intake and Output: 03/04/17 03/04/17 06:59 18:59 Intake Total 1020 195 Output Total 300 Balance 720 195 - Medications Medications: Current Medications Acetaminophen (Tylenol 325mg Tab) 650 mg PO Q6H PRN PRN Reason: Pain, Mild (1-3) Acetaminophen (Tylenol 325mg Tab) 650 mg PO Q6H PRN PRN Reason: Fever >100.4 F Albuterol/Ipratropium (Duoneb 3 Mg/0.5 Mg (3 Ml) Ud) 3 ml INH RQ4 [facility] Last Admin: 03/04/17 07:31 Dose: 3 ml Enoxaparin Sodium (Lovenox) 40 mg SC DAILY [facility] PRN Reason: Protocol Last Admin: 03/03/17 09:30 Dose: 40 mg Folic Acid (Folic Acid) 1 mg PO DAILY [facility] Last Admin: 03/03/17 09:29 Dose: 1 mg Tigecycline 50 mg/ Sodium (Chloride) 100 mls @ 100 mls/hr IVPB Q12H [facility] PRN Reason: Protocol Last Admin: 03/04/17 05:38 Dose: 100 mls/hr Sodium Chloride (Sodium Chloride 0.45%) 1,000 mls @ 75 mls/hr IV .[id number] [facility] Stop: 03/04/17 11:57 Last Admin: 03/04/17 01:53 Dose: Not Given Propofol (Diprivan) 1,000 mg in 100 mls @ 18.479 mls/hr IV .Q5H25M [facility]; 35 MCG/ KG/MIN PRN Reason: Protocol Stop: 03/04/17 20:41 Last Titration: 03/04/17 06:48 Dose: 10 mcg/kg/min, 5.28 mls/hr Sodium Chloride (Sodium Chloride 0.45%) 1,000 mls @ 75 mls/hr IV .[id number] [facility] Stop: 03/05/17 01:49 Last Admin: 03/04/17 01:30 Dose: 75 mls/hr Fentanyl 1,000 mcg/ Sodium (Chloride) 100 mls @ 8.79 mls/hr IV .[id number] [facility]; 1 MCG/KG/HR PRN Reason: Protocol Last Titration: 03/04/17 05:30 Dose: 2 mcg/kg/hr, 17.59 mls/hr Lactulose (Enulose) 20 gm PO QID [facility] Last Admin: 03/03/17 22:00 Dose: 20 gm Lidocaine (Lidoderm) 1 ea TD DAILY [facility] Last Admin: 03/03/17 09:04 Dose: 1 ea Methylprednisolone (Solu-Medrol) 40 mg IVP Q8 [facility] Last Admin: 03/04/17 01:19 Dose: 40 mg Multivitamins/Minerals (Therapeutic-M Tab) 1 tab PO DAILY [facility] Last Admin: 03/03/17 09:02 Dose: 1 tab Nystatin (Mycostatin Cream) 1 applic TOP TID [facility] Last Admin: 03/03/17 16:13 Dose: 1 applic Nystatin (Nystop Topical Powder) 1 applic TOP QID [facility] Last Admin: 03/03/17 23:00 Dose: 1 applic Pantoprazole Sodium (Protonix Inj) 40 mg IVP DAILY [facility] Last Admin: 03/03/17 08:59 Dose: 40 mg Rifaximin (Xifaxan) 550 mg PO BID [facility] PRN Reason: Protocol Last Admin: 03/03/17 16:12 Dose: 550 mg Thiamine HCl (Vitamin B1 Tab) 100 mg PO DAILY [facility] Last Admin: 03/03/17 08:59 Dose: 100 mg - Labs Labs: 03/04/17 04:30 03/04/17 04:30 PT 19.5 Seconds (9.8-13.1) H 03/02/17 08:11 INR 1.7 (0.9-1.2) H 03/02/17 08:11 APTT 30.4 Seconds (25.6-37.1) 03/02/17 08:11 - Constitutional Appears: In Acute Distress - Head Exam Head Exam: ATRAUMATIC, NORMOCEPHALIC - Eye Exam Eye Exam: Normal appearance - ENT Exam ENT Exam: Mucous Membranes Moist - Respiratory Exam Respiratory Exam: Decreased Breath Sounds, Wheezes. absent: Rales - Cardiovascular Exam Cardiovascular Exam: REGULAR RHYTHM, +S1, +S2 - GI/Abdominal Exam GI & Abdominal Exam: Distended, Tenderness, Hypoactive Bowel Sounds. absent: Guarding - Extremities Exam Extremities Exam: absent: Pedal Edema - Neurological Exam Additional comments: comatose, on ventilator, arousable to tactile stimuli - Skin Skin Exam: Intact Assessment and Plan - Assessment and Plan (Free Text) Plan: Assessment/Plan 1) Acute respiratory failure -secondary to hepatic encephalopathy and respiratory distress -admitted ICU -on ventilator second day due to hypercapneic respiratory failure -c/w steroids 2) Hepatic encephalopathy -Gi Consult appreciated: C/w lactulose,rifaxamin -amonium levels normal 3) UTI -VRE, Ecoli resistant to levaquin -ID consult appreciated: c/w Tygacil -f/u urine cx 4) COPD exacerbation -duoneb -solumedrol -Shipping Room Supervisor consult appreciated: c/w steroids, duoneb 5) B/L pneumonia -CXR: stable bilateral nodular infiltrates -s/p levaquin -on Tygacil 6) Abdominal pain -XR Abd possible illeus vs small bowel obstruction -Surgery consult appreciated: CT ab w/contrast positive for pelvic and abdominal ascites No surgical intervention at this time 7) Cirrhosis -CT ab w/contrast positive for pelvic and abdominal ascites 8) DVT Prophylaxis -lovenox 9) GI prophylaxis -Pantoprazole 40 mg IV
[2017-03-04] MEDS: Multivitamin With Minerals Tab PO SCH (08:25)
--- NOTE | 2017-03-04 08:48 | RAD ---
HISTORY: vented COMPARISON: Portable chest 03/03/2017. FINDINGS: Endotracheal and nasogastric tubes appear unchanged in position. LUNGS: Nodular infiltrates are again seen scattered bilaterally but predominate at the left apex and mid to inferior right lung zones. More typical patchy infiltrate is seen at the right perihilar region. PLEURA: No significant pleural effusion identified, no pneumothorax apparent. CARDIOVASCULAR: Prominent appearing cardiac silhouette appears stable. No pulmonary vascular derangement. OSSEOUS STRUCTURES: No significant abnormalities. VISUALIZED UPPER ABDOMEN: Normal. OTHER FINDINGS: None. IMPRESSION: Stable bilateral nodular infiltrates as discussed above.
--- NOTE | 2017-03-04 10:55 | PN ---
DATE: Zehra Jules is seen, having been following her for the last 3 days. Physical exam is difficulty to evaluate, and a CAT scan was ordered. The CAT scan showed some increasing ascites without secondary surgical signs. Certainly, she has cirrhosis with portal hypertension that is clearly seen on the CAT scan. I believe her primary problem is her lungs and I find no surgical indication. Please re-call as necessary. I will sign off. Harmeet Suero MD
--- NOTE | 2017-03-04 11:55 | CP.PCM.PN ---
<Maegan Reyes - Last Filed: 03/04/17 11:56> Subjective - Date & Time of Evaluation Date of Evaluation: 03/04/17 Time of Evaluation: 11:00 - Subjective Subjective: PGY 4 GI Follow-up Pt still intubated on sedation but still agitation + loose Bm as per RN no overnight events ROS: 10 point could not be conducted Objective - Vital Signs/Intake and Output Vital Signs (last 24 hours): Temp Pulse Resp BP Pulse Ox 97.6 F 68 18 92/43 L 98 03/04/17 08:00 03/04/17 10:00 03/04/17 10:00 03/04/17 10:00 03/04/17 10:00 Intake and Output: 03/04/17 03/04/17 06:59 18:59 Intake Total 1020 620 Output Total 300 Balance 720 620 - Medications Medications: Current Medications Acetaminophen (Tylenol 325mg Tab) 650 mg PO Q6H PRN PRN Reason: Pain, Mild (1-3) Acetaminophen (Tylenol 325mg Tab) 650 mg PO Q6H PRN PRN Reason: Fever >100.4 F Albuterol/Ipratropium (Duoneb 3 Mg/0.5 Mg (3 Ml) Ud) 3 ml INH RQ4 [facility] Last Admin: 03/04/17 11:20 Dose: 3 ml Enoxaparin Sodium (Lovenox) 40 mg SC DAILY [facility] PRN Reason: Protocol Last Admin: 03/04/17 08:23 Dose: 40 mg Folic Acid (Folic Acid) 1 mg PO DAILY [facility] Last Admin: 03/04/17 08:22 Dose: 1 mg Tigecycline 50 mg/ Sodium (Chloride) 100 mls @ 100 mls/hr IVPB Q12H [facility] PRN Reason: Protocol Last Admin: 03/04/17 05:38 Dose: 100 mls/hr Sodium Chloride (Sodium Chloride 0.45%) 1,000 mls @ 75 mls/hr IV .[id number] [facility] Stop: 03/04/17 11:57 Last Admin: 03/04/17 01:53 Dose: Not Given Propofol (Diprivan) 1,000 mg in 100 mls @ 18.479 mls/hr IV .Q5H25M [facility]; 35 MCG/ KG/MIN PRN Reason: Protocol Stop: 03/04/17 20:41 Last Admin: 03/04/17 08:21 Dose: 10 mcg/kg/min, 5.28 mls/hr Sodium Chloride (Sodium Chloride 0.45%) 1,000 mls @ 75 mls/hr IV .[id number] [facility] Stop: 03/05/17 01:49 Last Admin: 03/04/17 01:30 Dose: 75 mls/hr Fentanyl 1,000 mcg/ Sodium (Chloride) 100 mls @ 8.79 mls/hr IV .[id number] [facility]; 1 MCG/KG/HR PRN Reason: Protocol Last Admin: 03/04/17 09:39 Dose: 2 mcg/kg/hr, 17.59 mls/hr Lactulose (Enulose) 20 gm PO QID [facility] Last Admin: 03/04/17 08:22 Dose: 20 gm Lidocaine (Lidoderm) 1 ea TD DAILY [facility] Last Admin: 03/04/17 08:23 Dose: 1 ea Methylprednisolone (Solu-Medrol) 40 mg IVP Q8 [facility] Last Admin: 03/04/17 08:25 Dose: 40 mg Multivitamins/Minerals (Therapeutic-M Tab) 1 tab PO DAILY [facility] Last Admin: 03/04/17 08:25 Dose: 1 tab Nystatin (Mycostatin Cream) 1 applic TOP TID [facility] Last Admin: 03/04/17 08:24 Dose: 1 applic Nystatin (Nystop Topical Powder) 1 applic TOP QID [facility] Last Admin: 03/04/17 08:24 Dose: 1 applic Pantoprazole Sodium (Protonix Inj) 40 mg IVP DAILY [facility] Last Admin: 03/04/17 08:24 Dose: 40 mg Rifaximin (Xifaxan) 550 mg PO BID [facility] PRN Reason: Protocol Last Admin: 03/04/17 08:25 Dose: 550 mg Thiamine HCl (Vitamin B1 Tab) 100 mg PO DAILY [facility] Last Admin: 03/04/17 08:25 Dose: 100 mg - Labs Labs: 03/04/17 04:30 03/04/17 04:30 PT 19.5 Seconds (9.8-13.1) H 03/02/17 08:11 INR 1.7 (0.9-1.2) H 03/02/17 08:11 APTT 30.4 Seconds (25.6-37.1) 03/02/17 08:11 - Constitutional Appears: No Acute Distress, Chronically Ill - Head Exam Head Exam: NORMAL INSPECTION - Eye Exam Eye Exam: Normal appearance - ENT Exam ENT Exam: Mucous Membranes Moist - Respiratory Exam Respiratory Exam: Clear to Ausculation Bilateral. absent: Rales, Rhonchi, Wheezes, Respiratory Distress - Cardiovascular Exam Cardiovascular Exam: REGULAR RHYTHM, +S1, +S2 - GI/Abdominal Exam GI & Abdominal Exam: Soft, Normal Bowel Sounds. absent: Guarding, Rigid, Tenderness, Organomegaly - Extremities Exam Extremities Exam: absent: Joint Swelling, Pedal Edema - Neurological Exam Neurological Exam: Altered - Psychiatric Exam Additional comments: could not assess - Skin Skin Exam: Dry, Intact, Normal Color, Warm Assessment and Plan - Assessment and Plan (Free Text) Assessment: Zehra Jules is a 51 year old female with history of ETOH cirrhosis, COPD, obesity admitted with COPD exacerbation, also with altered mental status now. 1. Alcoholic cirrhosis 2. Hepatic encephalopathy Plan: - intubated now for hypercapneic respiratory failure - reviewed CT, trace ascities, not sig enough to tap - would continue lactulose and rifaxamin for encephalopathy, adjust lactulose for 2-3 BM daily - continue antibiotics/steroids for COPD per pulmonary D/W Dr. Gonzales <Christian NUNEZ,[facility] - Last Filed: 03/04/17 16:50> Objective - Vital Signs/Intake and Output Vital Signs (last 24 hours): Temp Pulse Resp BP Pulse Ox 97.3 F L 64 18 88/46 L 100 03/04/17 16:00 03/04/17 16:00 03/04/17 16:00 03/04/17 16:00 03/04/17 16:00 Intake and Output: 03/04/17 03/04/17 06:59 18:59 Intake Total 1020 1400 Output Total 300 Balance 720 1400 - Medications Medications: Current Medications Acetaminophen (Tylenol 325mg Tab) 650 mg PO Q6H PRN PRN Reason: Pain, Mild (1-3) Acetaminophen (Tylenol 325mg Tab) 650 mg PO Q6H PRN PRN Reason: Fever >100.4 F Albuterol/Ipratropium (Duoneb 3 Mg/0.5 Mg (3 Ml) Ud) 3 ml INH RQ4 [facility] Last Admin: 03/04/17 15:33 Dose: 3 ml Enoxaparin Sodium (Lovenox) 40 mg SC DAILY [facility] PRN Reason: Protocol Last Admin: 03/04/17 08:23 Dose: 40 mg Folic Acid (Folic Acid) 1 mg PO DAILY [facility] Last Admin: 03/04/17 08:22 Dose: 1 mg Tigecycline 50 mg/ Sodium (Chloride) 100 mls @ 100 mls/hr IVPB Q12H [facility] PRN Reason: Protocol Last Admin: 03/04/17 16:21 Dose: 100 mls/hr Propofol (Diprivan) 1,000 mg in 100 mls @ 18.479 mls/hr IV .Q5H25M [facility]; 35 MCG/ KG/MIN PRN Reason: Protocol Stop: 03/04/17 20:41 Last Admin: 03/04/17 08:21 Dose: 10 mcg/kg/min, 5.28 mls/hr Sodium Chloride (Sodium Chloride 0.45%) 1,000 mls @ 75 mls/hr IV .[id number] [facility] Stop: 03/05/17 01:49 Last Admin: 03/04/17 16:18 Dose: 75 mls/hr Fentanyl 1,000 mcg/ Sodium (Chloride) 100 mls @ 8.79 mls/hr IV .[id number] [facility]; 1 MCG/KG/HR PRN Reason: Protocol Last Admin: 03/04/17 15:40 Dose: 2 mcg/kg/hr, 17.59 mls/hr Lactulose (Enulose) 20 gm PO QID [facility] Last Admin: 03/04/17 16:19 Dose: 20 gm Lidocaine (Lidoderm) 1 ea TD DAILY [facility] Last Admin: 03/04/17 08:23 Dose: 1 ea Methylprednisolone (Solu-Medrol) 40 mg IVP Q8 [facility] Last Admin: 03/04/17 16:20 Dose: 40 mg Multivitamins/Minerals (Therapeutic-M Tab) 1 tab PO DAILY [facility] Last Admin: 03/04/17 08:25 Dose: 1 tab Nystatin (Mycostatin Cream) 1 applic TOP TID [facility] Last Admin: 03/04/17 16:19 Dose: 1 applic Nystatin (Nystop Topical Powder) 1 applic TOP QID [facility] Last Admin: 03/04/17 16:20 Dose: 1 applic Pantoprazole Sodium (Protonix Inj) 40 mg IVP DAILY [facility] Last Admin: 03/04/17 08:24 Dose: 40 mg Rifaximin (Xifaxan) 550 mg PO BID [facility] PRN Reason: Protocol Last Admin: 03/04/17 16:20 Dose: 550 mg Thiamine HCl (Vitamin B1 Tab) 100 mg PO DAILY [facility] Last Admin: 03/04/17 08:25 Dose: 100 mg - Labs Labs: 03/04/17 04:30 03/04/17 04:30 PT 21.0 Seconds (9.8-13.1) H D 03/04/17 14:30 INR 1.9 (0.9-1.2) H D 03/04/17 14:30 APTT 30.4 Seconds (25.6-37.1) 03/02/17 08:11 Attending/Attestation - Attestation I have personally seen and examined this patient.: Yes I have fully participated in the care of the patient.: Yes I have reviewed all pertinent clinical information, including history, physical exam and plan: Yes Notes (Text): 03/04/17 16:43 Patient seen with GI fellow on rounds this am in MICU. This is a 51 year old female with history of ETOH cirrhosis, COPD, obesity admitted with COPD exacerbation, and hypercarbic respiratory failure s/p intubation in setting of B /L PNA. Admitted last month with similar complaint. On lactulose with adequate bowel movements. On PE not enough ascitic fluid for tap. On broad spectrum antibiotics as per ID for E coli/ VRE UTI. Continue lactulose and rifaximin for HE prophylaxis. Rest of plan as per MICU/primary team. GI/DVT prophylaxis
--- NOTE | 2017-03-04 11:57 | CP.PCM.PN ---
Subjective - Date & Time of Evaluation Date of Evaluation: 03/04/17 Time of Evaluation: 11:58 - Subjective Subjective: STILL INTUBATED AND BEING VENTILATED RESPONDS TO PAINFUL STIMULI Objective - Vital Signs/Intake and Output Vital Signs (last 24 hours): Temp Pulse Resp BP Pulse Ox 97.6 F 67 18 103/53 L 99 03/04/17 08:00 03/04/17 11:00 03/04/17 11:00 03/04/17 11:00 03/04/17 11:00 Intake and Output: 03/04/17 03/04/17 06:59 18:59 Intake Total 1020 620 Output Total 300 Balance 720 620 - Medications Medications: Current Medications Acetaminophen (Tylenol 325mg Tab) 650 mg PO Q6H PRN PRN Reason: Pain, Mild (1-3) Acetaminophen (Tylenol 325mg Tab) 650 mg PO Q6H PRN PRN Reason: Fever >100.4 F Albuterol/Ipratropium (Duoneb 3 Mg/0.5 Mg (3 Ml) Ud) 3 ml INH RQ4 [facility] Last Admin: 03/04/17 11:20 Dose: 3 ml Enoxaparin Sodium (Lovenox) 40 mg SC DAILY [facility] PRN Reason: Protocol Last Admin: 03/04/17 08:23 Dose: 40 mg Folic Acid (Folic Acid) 1 mg PO DAILY [facility] Last Admin: 03/04/17 08:22 Dose: 1 mg Tigecycline 50 mg/ Sodium (Chloride) 100 mls @ 100 mls/hr IVPB Q12H [facility] PRN Reason: Protocol Last Admin: 03/04/17 05:38 Dose: 100 mls/hr Sodium Chloride (Sodium Chloride 0.45%) 1,000 mls @ 75 mls/hr IV .[id number] [facility] Stop: 03/04/17 11:57 Last Admin: 03/04/17 01:53 Dose: Not Given Propofol (Diprivan) 1,000 mg in 100 mls @ 18.479 mls/hr IV .Q5H25M [facility]; 35 MCG/ KG/MIN PRN Reason: Protocol Stop: 03/04/17 20:41 Last Admin: 03/04/17 08:21 Dose: 10 mcg/kg/min, 5.28 mls/hr Sodium Chloride (Sodium Chloride 0.45%) 1,000 mls @ 75 mls/hr IV .[id number] [facility] Stop: 03/05/17 01:49 Last Admin: 03/04/17 01:30 Dose: 75 mls/hr Fentanyl 1,000 mcg/ Sodium (Chloride) 100 mls @ 8.79 mls/hr IV .[id number] [facility]; 1 MCG/KG/HR PRN Reason: Protocol Last Admin: 03/04/17 09:39 Dose: 2 mcg/kg/hr, 17.59 mls/hr Lactulose (Enulose) 20 gm PO QID [facility] Last Admin: 03/04/17 08:22 Dose: 20 gm Lidocaine (Lidoderm) 1 ea TD DAILY [facility] Last Admin: 03/04/17 08:23 Dose: 1 ea Methylprednisolone (Solu-Medrol) 40 mg IVP Q8 [facility] Last Admin: 03/04/17 08:25 Dose: 40 mg Multivitamins/Minerals (Therapeutic-M Tab) 1 tab PO DAILY [facility] Last Admin: 03/04/17 08:25 Dose: 1 tab Nystatin (Mycostatin Cream) 1 applic TOP TID [facility] Last Admin: 03/04/17 08:24 Dose: 1 applic Nystatin (Nystop Topical Powder) 1 applic TOP QID [facility] Last Admin: 03/04/17 08:24 Dose: 1 applic Pantoprazole Sodium (Protonix Inj) 40 mg IVP DAILY [facility] Last Admin: 03/04/17 08:24 Dose: 40 mg Rifaximin (Xifaxan) 550 mg PO BID [facility] PRN Reason: Protocol Last Admin: 03/04/17 08:25 Dose: 550 mg Thiamine HCl (Vitamin B1 Tab) 100 mg PO DAILY [facility] Last Admin: 03/04/17 08:25 Dose: 100 mg - Labs Labs: 03/04/17 04:30 03/04/17 04:30 PT 19.5 Seconds (9.8-13.1) H 03/02/17 08:11 INR 1.7 (0.9-1.2) H 03/02/17 08:11 APTT 30.4 Seconds (25.6-37.1) 03/02/17 08:11 - Constitutional Appears: Chronically Ill - Head Exam Head Exam: ATRAUMATIC, NORMAL INSPECTION, NORMOCEPHALIC - Eye Exam Eye Exam: EOMI, Normal appearance, PERRL Pupil Exam: NORMAL ACCOMODATION, PERRL - ENT Exam ENT Exam: Mucous Membranes Moist, Normal Exam - Neck Exam Neck Exam: Full ROM, Normal Inspection. absent: Lymphadenopathy - Respiratory Exam Respiratory Exam: Decreased Breath Sounds, Rales Additional comments: ON THE VENT - Cardiovascular Exam Cardiovascular Exam: REGULAR RHYTHM, +S1, +S2. absent: Murmur - GI/Abdominal Exam GI & Abdominal Exam: Distended, Soft, Normal Bowel Sounds. absent: Tenderness - Rectal Exam Rectal Exam: NORMAL INSPECTION - Extremities Exam Extremities Exam: Full ROM, Normal Capillary Refill, Pedal Edema. absent: Joint Swelling - Back Exam Back Exam: NORMAL INSPECTION - Skin Skin Exam: Dry, Intact, Normal Color, Warm Assessment and Plan - Assessment and Plan (Free Text) Assessment: ACUTE RESPIRATORY FAILURE COPD EXAC ASCITES Plan: CONTINUE VENT CARE MAY NEED PARACENTESES
[2017-03-04 12:36] LABS: INR 8.5 (0.9-1.2)
[2017-03-04 12:38] LABS: PROTHROMBIN TIME 98.7 Seconds (9.8-13.1)
--- NOTE | 2017-03-04 13:45 | CP.PCM.PN ---
Subjective - Date & Time of Evaluation Date of Evaluation: 03/04/17 Time of Evaluation: 06:00 - Subjective Subjective: intubated nonverbal Objective - Vital Signs/Intake and Output Vital Signs (last 24 hours): Temp Pulse Resp BP Pulse Ox 97.7 F 63 18 96/47 L 100 03/04/17 12:00 03/04/17 13:00 03/04/17 13:00 03/04/17 13:00 03/04/17 13:00 Intake and Output: 03/04/17 03/04/17 06:59 18:59 Intake Total 1020 815 Output Total 300 Balance 720 815 - Medications Medications: Current Medications Acetaminophen (Tylenol 325mg Tab) 650 mg PO Q6H PRN PRN Reason: Pain, Mild (1-3) Acetaminophen (Tylenol 325mg Tab) 650 mg PO Q6H PRN PRN Reason: Fever >100.4 F Albuterol/Ipratropium (Duoneb 3 Mg/0.5 Mg (3 Ml) Ud) 3 ml INH RQ4 [facility] Last Admin: 03/04/17 11:20 Dose: 3 ml Enoxaparin Sodium (Lovenox) 40 mg SC DAILY [facility] PRN Reason: Protocol Last Admin: 03/04/17 08:23 Dose: 40 mg Folic Acid (Folic Acid) 1 mg PO DAILY [facility] Last Admin: 03/04/17 08:22 Dose: 1 mg Tigecycline 50 mg/ Sodium (Chloride) 100 mls @ 100 mls/hr IVPB Q12H [facility] PRN Reason: Protocol Last Admin: 03/04/17 05:38 Dose: 100 mls/hr Propofol (Diprivan) 1,000 mg in 100 mls @ 18.479 mls/hr IV .Q5H25M [facility]; 35 MCG/ KG/MIN PRN Reason: Protocol Stop: 03/04/17 20:41 Last Admin: 03/04/17 08:21 Dose: 10 mcg/kg/min, 5.28 mls/hr Sodium Chloride (Sodium Chloride 0.45%) 1,000 mls @ 75 mls/hr IV .[id number] [facility] Stop: 03/05/17 01:49 Last Admin: 03/04/17 01:30 Dose: 75 mls/hr Fentanyl 1,000 mcg/ Sodium (Chloride) 100 mls @ 8.79 mls/hr IV .[id number] [facility]; 1 MCG/KG/HR PRN Reason: Protocol Last Admin: 03/04/17 09:39 Dose: 2 mcg/kg/hr, 17.59 mls/hr Lactulose (Enulose) 20 gm PO QID [facility] Last Admin: 03/04/17 08:22 Dose: 20 gm Lidocaine (Lidoderm) 1 ea TD DAILY [facility] Last Admin: 03/04/17 08:23 Dose: 1 ea Methylprednisolone (Solu-Medrol) 40 mg IVP Q8 [facility] Last Admin: 03/04/17 08:25 Dose: 40 mg Multivitamins/Minerals (Therapeutic-M Tab) 1 tab PO DAILY [facility] Last Admin: 03/04/17 08:25 Dose: 1 tab Nystatin (Mycostatin Cream) 1 applic TOP TID [facility] Last Admin: 03/04/17 08:24 Dose: 1 applic Nystatin (Nystop Topical Powder) 1 applic TOP QID [facility] Last Admin: 03/04/17 08:24 Dose: 1 applic Pantoprazole Sodium (Protonix Inj) 40 mg IVP DAILY [facility] Last Admin: 03/04/17 08:24 Dose: 40 mg Rifaximin (Xifaxan) 550 mg PO BID [facility] PRN Reason: Protocol Last Admin: 03/04/17 08:25 Dose: 550 mg Thiamine HCl (Vitamin B1 Tab) 100 mg PO DAILY [facility] Last Admin: 03/04/17 08:25 Dose: 100 mg - Labs Labs: 03/04/17 04:30 03/04/17 04:30 PT 98.7 Seconds (9.8-13.1) H* 03/04/17 11:21 INR 8.5 (0.9-1.2) H D 03/04/17 11:21 APTT 30.4 Seconds (25.6-37.1) 03/02/17 08:11 - Constitutional Appears: Chronically Ill - Eye Exam Eye Exam: PERRL - ENT Exam ENT Exam: Mucous Membranes Dry - Neck Exam Neck Exam: absent: Lymphadenopathy - Respiratory Exam Respiratory Exam: Decreased Breath Sounds, Rhonchi - Cardiovascular Exam Cardiovascular Exam: REGULAR RHYTHM, +S1, +S2 - GI/Abdominal Exam GI & Abdominal Exam: Distended, Soft - Rectal Exam Rectal Exam: Deferred - Exam Exam: NORMAL INSPECTION Assessment and Plan (1) Acute and chronic respiratory failure with hypercapnia Status: Acute (2) Hepatic encephalopathy Status: Acute
[2017-03-04 14:57] LABS: INR 1.9 (0.9-1.2)
--- NOTE | 2017-03-04 15:11 | CP.CCUPN ---
CCU Subjective - Physician Review Events Since Last Encounter (Free Text): 03/04/17 15:25 The patient was Seen/interviewed and examined by me at the bedside, Medical records reviewed and Management issues were discussed and formulated with the house staff. Events reviewed 51 Years old Female with PMHx of Asthma, Bronchitis, COPD, Pneumonia, alcohol abuse, cirrhosis and hepatic encephalopathy Who was brought in by EMS to Emergency department on 02/27 for evaluation of shortness of breath while the patient was at her care home. She was admitted to the telemetry for management of COPD exacerbation from B/L pneumonia Patient placed on High Flow NC, IV solumedrol, Duoneb And started on IV Levaquin 750 mg daily B/L pneumonia 03/01, [employer] called for acute episode of shortness of breath, likely secondary to COPD ICU evaluation called for lethargy, ABG done with hypercabnia, placed on BIPAP, Fluid discontinue for possible Pulmonary congesion Also had Abd pain and XR showed possible early obstruction, NPO and surgery consulted Repeat ABG 7.11/109/62/37/92.5% Patient transferred to the ICU and semi-emergently orally intubated Patient currently Sedated on fentanyl drip, orally intubated, Awake, comfortable, moves all extremities, following commands Clinically and hemodynamically improved No Vasopressors Afebrile, NSR on the monitor Last 24H I&O 2170/600 This morning CXR shows minimal improvement of the B/L airspace disease Labs revealed no Leucocytosis, Stable renal function BUN/Cr 44/0.8, Na up to 136 ABG 7.51/38/156/31/100% FIO2 decresed to 50% Peak and Plateau airway pressures NL Respiratory secretions minimal Critical Care Time Spent (in minutes): 42 CCU Objective - Vital Signs / Intake & Output Vital Signs (Last 4 hours): Vital Signs Temp Pulse Resp BP Pulse Ox 03/04/17 13:00 63 18 96/47 L 100 03/04/17 12:00 97.7 F 63 35 H 85/38 L 100 03/04/17 11:00 67 18 103/53 L 99 Intake and Output (Last 8hrs): Intake & Output 03/03/17 03/04/17 03/04/17 22:59 06:59 14:59 Intake Total 565 795 815 Output Total 300 300 Balance 265 495 815 Weight 197 lb Intake: IV 565 645 765 Intake, Piggyback 100 50 Tube Feeding 0 Free Water Flush 50 Output: Urine 300 300 Urethral (Gaffney) 300 300 Other: # Bowel Movements 1 - Physical Exam Head: Positive for: Atraumatic, Normocephalic. Negative for: Tenderness, Contusion, Swelling, Ecchymosis Pupils: Positive for: PERRL, Sluggish Conjunctiva: Positive for: Icteric. Negative for: Injected Ears: Positive for: Normal Mouth: Positive for: Moist Mucous Membranes Neck: Positive for: Normal Range of Motion, Trachea Midline. Negative for: Meningeal Signs, MIDLINE TENDERNESS, Paraspinal Tenderness, JVD, Lymphadenopathy , Bruit, Other Respiratory/Chest: Positive for: Accessory Muscle Use, Wheezes, Decreased Breath Sounds, Rales, Rhonchi, Tachypneic. Negative for: Good Air Exchange, Respiratory Distress Cardiovascular: Positive for: Normal S1, S2, Peripheal Pulses Present, Tachycardic. Negative for: Murmurs, Irregular Rhythm Abdomen: Positive for: Distention, Normal Bowel Sounds, Peritoneal Signs. Negative for: Tenderness Back: Negative for: CVA Tenderness Upper Extremity: Positive for: Normal Inspection, NORMAL PULSES. Negative for: Cyanosis, Edema Lower Extremity: Positive for: Normal Inspection, NORMAL PULSES, Capillary Refill < 2 s. Negative for: Edema, CALF TENDERNESS Neurological: Positive for: Other (Lethargic) Skin: Positive for: Warm. Negative for: Rashes Psychiatric: Negative for: Alert, Oriented x 3, Normal Insight - Medications Active Medications: Active Medications Generic Name Dose Route Start Last Admin Trade Name Pierreq PRN Reason Stop Dose Admin Acetaminophen 650 mg 03/02/17 20:39 Tylenol 325mg Tab PO Q6H PRN Pain, Mild (1-3) Acetaminophen 650 mg 03/02/17 20:39 Tylenol 325mg Tab PO Q6H PRN Fever >100.4 F Albuterol/Ipratropium 3 ml 03/03/17 00:00 03/04/17 11:20 Duoneb 3 Mg/0.5 Mg (3 Ml) Ud INH 3 ml RQ4 FOR[facility] Administration Enoxaparin Sodium 40 mg 03/03/17 09:00 03/04/17 08:23 Lovenox SC 40 mg DAILY [facility] Administration Protocol Folic Acid 1 mg 03/03/17 09:00 03/04/17 08:22 Folic Acid PO 1 mg DAILY FOREST Administration Tigecycline 50 mg/ Sodium 100 mls @ 100 mls/hr 03/03/17 05:00 03/04/17 05:38 Chloride IVPB 100 mls/hr Q12H FOR[facility] Administration Protocol Propofol 1,000 mg in 100 mls @ 18.479 mls/hr 03/03/17 20:59 03/04/17 08:21 Diprivan IV 03/04/17 20:41 10 mcg/kg/min .[id number] FOR[facility] 5.28 mls/hr Protocol Administration 35 MCG/KG/MIN Sodium Chloride 1,000 mls @ 75 mls/hr 03/04/17 02:00 03/04/17 01:30 Sodium Chloride 0.45% IV 03/05/17 01:49 75 mls/hr .[id number] FOREST Administration Fentanyl 1,000 mcg/ Sodium 100 mls @ 8.79 mls/hr 03/04/17 04:33 03/04/17 09: 39 Chloride IV 2 mcg/kg/hr .[id number] [facility] 17.59 mls/hr Protocol Administration 1 MCG/KG/HR Lactulose 20 gm 03/02/17 22:00 03/04/17 13:49 Enulose PO 20 gm QID FOR[facility] Administration Lidocaine 1 ea 03/03/17 09:00 03/04/17 08:23 Lidoderm TD 1 ea DAILY [facility] Administration Methylprednisolone 40 mg 03/03/17 01:00 03/04/17 08:25 Solu-Medrol IVP 40 mg Q8 FOREST Administration Multivitamins/Minerals 1 tab 03/03/17 09:00 03/04/17 08:25 Therapeutic-M Tab PO 1 tab DAILY [facility] Administration Nystatin 1 applic 03/03/17 09:00 03/04/17 13:50 Mycostatin Cream TOP 1 applic TID FOREST Administration Nystatin 1 applic 03/02/17 22:00 03/04/17 13:50 Nystop Topical Powder TOP 1 applic QID FOREST Administration Pantoprazole Sodium 40 mg 03/03/17 09:00 03/04/17 08:24 Protonix Inj IVP 40 mg DAILY [facility] Administration Rifaximin 550 mg 03/03/17 09:00 03/04/17 08:25 Xifaxan PO 550 mg BID [facility] Administration Protocol Thiamine HCl 100 mg 03/03/17 09:00 03/04/17 08:25 Vitamin B1 Tab PO 100 mg DAILY FOR[facility] Administration - Patient Studies Lab Studies: Microbiology Studies 03/02/17 09:25 Urine Culture - Preliminary Urine,Gaffney Gram Negative Reese 03/02/17 Unknown Gram Stain - Final Trachasp Sputum Culture - Preliminary NORMAL ORAL MARK 02/27/17 12:40 Blood Culture - Preliminary Blood NO GROWTH AFTER 4 DAYS 02/27/17 22:50 Blood Culture - Preliminary Blood NO GROWTH AFTER 4 DAYS Lab Studies 03/04/17 03/04/17 03/04/17 Range/Units 11:21 05:44 04:30 WBC (4.8-10.8) K/uL RBC (3.80-5.20) Mil/uL Hgb (12.0-16.0) g/dL Hct (34.0-47.0) % MCV (81.0-99.0) fl MCH (27.0-31.0) pg MCHC (33.0-37.0) g/dL RDW (11.5-14.5) % Plt Count (130-400) K/uL PT 98.7 H* (9.8-13.1) Seconds INR 8.5 H D (0.9-1.2) pCO2 38 (35-45) mm/Hg pO2 156 H (80-100) mm/Hg HCO3 30.3 H (21-28) mmol/L ABG pH 7.51 H (7.35-7.45) ABG Total CO2 31.5 H (22-28) mmol/L ABG O2 Saturation 100.4 H (95-98) % ABG O2 Content 13.2 L (15-23) ML/dL ABG Base Excess 6.8 H (-2.0-3.0) mmol/L ABG Hemoglobin 9.3 L (11.7-17.4) g/dL ABG Carboxyhemoglobin 1.3 (0.5-1.5) % POC ABG HHb (Measured) -0.4 L (0.0-5.0) % ABG Methemoglobin 1.1 (0.0-3.0) % ABG O2 Capacity 13.1 L (16-24) mL/dL Dick Test Yes A-a O2 Difference 224.0 mm/Hg Hgb O2 Saturation 98.0 (95.0-98.0) % Vent Mode A/c Mechanical Rate 18 FiO2 60.0 % Tidal Volume 500 PEEP 5 Sodium 136 (132-148) mmol/l Potassium 4.1 (3.6-5.0) MMOL/L Chloride 101 (98-107) mmol/L Carbon Dioxide 30 (22-30) mmol/L Anion Gap 9 L (10-20) BUN 44 H (7-17) mg/dl Creatinine 0.8 (0.7-1.2) mg/dl Est GFR ( Amer) > 60 Est GFR (Non-Af Amer) > 60 Random Glucose 118 H (65-105) mg/dL Calcium 9.3 (8.4-10.2) mg/dL Total Bilirubin 1.9 H (0.2-1.3) mg/dl AST 51 H D (14-36) U/L ALT 53 H (9-52) U/L Alkaline Phosphatase 120 (38-126) U/L Total Protein 6.7 (6.3-8.2) G/DL Albumin 2.8 L (3.5-5.0) g/dL Globulin 4.0 H (2.2-3.9) gm/dL Albumin/Globulin Ratio 0.7 L (1.0-2.1) 03/04/ Range/Units 04:30 WBC 8.8 (4.8-10.8) K/uL RBC 2.74 L (3.80-5.20) Mil/uL Hgb 9.4 L (12.0-16.0) g/dL Hct 28.6 L (34.0-47.0) % MCV 104.3 H D (81.0-99.0) fl MCH 34.3 H (27.0-31.0) pg MCHC 32.9 L (33.0-37.0) g/dL RDW 16.9 H (11.5-14.5) % Plt Count 140 (130-400) K/uL PT (9.8-13.1) Seconds INR (0.9-1.2) pCO2 (35-45) mm/Hg pO2 (80-100) mm/Hg HCO3 (21-28) mmol/L ABG pH (7.35-7.45) ABG Total CO2 (22-28) mmol/L ABG O2 Saturation (95-98) % ABG O2 Content (15-23) ML/dL ABG Base Excess (-2.0-3.0) mmol/L ABG Hemoglobin (11.7-17.4) g/dL ABG Carboxyhemoglobin (0.5-1.5) % POC ABG HHb (Measured) (0.0-5.0) % ABG Methemoglobin (0.0-3.0) % ABG O2 Capacity (16-24) mL/dL Dick Test A-a O2 Difference mm/Hg Hgb O2 Saturation (95.0-98.0) % Vent Mode Mechanical Rate FiO2 % Tidal Volume PEEP Sodium (132-148) mmol/l Potassium (3.6-5.0) MMOL/L Chloride (98-107) mmol/L Carbon Dioxide (22-30) mmol/L Anion Gap (10-20) BUN (7-17) mg/dl Creatinine (0.7-1.2) mg/dl Est GFR ( Amer) Est GFR (Non-Af Amer) Random Glucose (65-105) mg/dL Calcium (8.4-10.2) mg/dL Total Bilirubin (0.2-1.3) mg/dl AST (14-36) U/L ALT (9-52) U/L Alkaline Phosphatase (38-126) U/L Total Protein (6.3-8.2) G/DL Albumin (3.5-5.0) g/dL Globulin (2.2-3.9) gm/dL Albumin/Globulin Ratio (1.0-2.1) Laboratory Results - last 24 hr 03/04/17 03/04/17 03/04/17 04:30 04:30 05:44 WBC 8.8 RBC 2.74 L Hgb 9.4 L Hct 28.6 L MCV 104.3 H D MCH 34.3 H MCHC 32.9 L RDW 16.9 H Plt Count 140 PT INR pCO2 38 pO2 156 H HCO3 30.3 H ABG pH 7.51 H ABG Total CO2 31.5 H ABG O2 Saturation 100.4 H ABG O2 Content 13.2 L ABG Base Excess 6.8 H ABG Hemoglobin 9.3 L ABG Carboxyhemoglobin 1.3 POC ABG HHb (Measured) -0.4 L ABG Methemoglobin 1.1 ABG O2 Capacity 13.1 L Dick Test Yes A-a O2 Difference 224.0 Hgb O2 Saturation 98.0 Vent Mode A/c Mechanical Rate 18 FiO2 60.0 Tidal Volume 500 PEEP 5 Sodium 136 Potassium 4.1 Chloride 101 Carbon Dioxide 30 Anion Gap 9 L BUN 44 H Creatinine 0.8 Est GFR ( Amer) > 60 Est GFR (Non-Af Amer) > 60 Random Glucose 118 H Calcium 9.3 Total Bilirubin 1.9 H AST 51 H D ALT 53 H Alkaline Phosphatase 120 Total Protein 6.7 Albumin 2.8 L Globulin 4.0 H Albumin/Globulin Ratio 0.7 L 03/04/17 11:21 WBC RBC Hgb Hct MCV MCH MCHC RDW Plt Count PT 98.7 H* INR 8.5 H D pCO2 pO2 HCO3 ABG pH ABG Total CO2 ABG O2 Saturation ABG O2 Content ABG Base Excess ABG Hemoglobin ABG Carboxyhemoglobin POC ABG HHb (Measured) ABG Methemoglobin ABG O2 Capacity Dick Test A-a O2 Difference Hgb O2 Saturation Vent Mode Mechanical Rate FiO2 Tidal Volume PEEP Sodium Potassium Chloride Carbon Dioxide Anion Gap BUN Creatinine Est GFR ( Amer) Est GFR (Non-Af Amer) Random Glucose Calcium Total Bilirubin AST ALT Alkaline Phosphatase Total Protein Albumin Globulin Albumin/Globulin Ratio Review of Systems - Review of Systems Systems not reviewed;Unavailable: Intubated Critical Care Progress Note - Ventilator Checklist Head of Bed 30 Degrees: Yes Daily Sedation Vacation: Yes Daily Assessment of Readiness to Wean: Yes Daily Spontaneous Breathing Trial: Yes PUD Prophalyxis: Yes DVT Prophylaxis: Yes Oral Care with Chlorhexidine Gluconate {CHG}: Yes - Extremities/Vascular Does the Patient have a Central Venous Catheter?: No Does the Patient need a Central Venous Catheter?: No Does the Patient have a Gaffney Catheter?: Yes Does the Patient need a Gaffney Catheter?: Yes - Nutrition Nutrition: Nutrition Category Date Time Status NPO Diet [DIET] Diets 03/01/17 Breakfast Active Assessment/Plan (1) UTI (urinary tract infection) Current Visit: Yes Status: Acute (2) COPD exacerbation Current Visit: Yes Status: Acute (3) Acute and chronic respiratory failure with hypercapnia Current Visit: No Status: Acute (4) Alcohol abuse Current Visit: No Status: Acute (5) Bilateral pneumonia Current Visit: No Status: Acute (6) Hepatic encephalopathy Current Visit: No Status: Acute (7) Severe sepsis Current Visit: No Status: Acute - Assessment and Plan (Free Text) Assessment: Acute respiratory failure with hypoxemia and Hypercapnia in the setting of Bilateral pneumonia , severe Respiratory muscle with underlying Obstructive lung disease, with limited pulmonary reserve and hypoventilation from obesity. COPD exacerbations Bilateral pneumonia Hepatic encephalopathy Abdominal pain R/O SBObstruction Continue with ICU care for hemodynamic and Respiratory monitoring Maintain MAP 65-75 Full vent support, Wean off FIO2 Sedation with Propofol Continue IV antibiotics with Tygacil Continue IV Methylprednisolone to 40 mg IVPB Q8H Continue Lactulose and Rifaximine Continue nebulizer treatment Continue diuretics as needed Strict I&O, negative fluid balance Aggressive pulmonary toilet, chest PT, suctioning Send tracheal aspirate for gram stain and C/S Maintain aspiration precautions NPO NG Tube Surgery and ID consult appreciated GI/DVT PPX: PPI, Lovenox
[2017-03-05] MEDS: MethylPREDNISolone 40 mg Vial IVP SCH ×3 (00:23→16:37)
[2017-03-05] MEDS ORDERED: Sodium Chloride 0.9% 500 ML IV ONE (03:20)
[2017-03-05] MEDS: Albuterol-Ipratrop 3 mg / 0.5 (3 ml) UD INH SCH ×6 (04:13→23:34)
[2017-03-05] MEDS: Sodium Chloride 0.45% 1,000 ML IV SCH ×2 (04:20→20:08)
[2017-03-05 04:30] LABS: ABG ALLEN TEST YES; ARTERIAL BLOOD GAS HCO3 25.8 mmol/L (21-28); ARTERIAL BLOOD GAS HEMOGLOBIN 9.8 g/dL (11.7-17.4); ARTERIAL BLOOD GAS O2 CAPACITY 13.6 mL/dL (16-24); ARTERIAL BLOOD GAS O2 CONTENT 13.5 ML/dL (15-23); ARTERIAL BLOOD GAS O2 SAT 99.6 % (95-98); ARTERIAL BLOOD GAS PCO2 36 mm/Hg (35-45); ARTERIAL BLOOD GAS PH 7.45 (7.35-7.45); ARTERIAL BLOOD GAS PO2 104 mm/Hg (80-100); ARTERIAL BLOOD GAS TCO2 26.1 mmol/L (22-28)
[2017-03-05 06:31] LABS: HEMOGLOBIN 9.4 g/dL (12.0-16.0); MEAN CELL VOLUME 101.1 fl (81.0-99.0); MEAN CORPUSCULAR HEMOGLOBIN 32.8 pg (27.0-31.0); MEAN CORPUSCULAR HGB CONC 32.5 g/dL (33.0-37.0); RBC 2.86 Mil/uL (3.80-5.20); RED CELL DISTRIBUTION WIDTH 16.8 % (11.5-14.5); WHITE BLOOD COUNT 12.4 K/uL (4.8-10.8)
[2017-03-05 06:49] LABS: ALB/GLOB RATIO 0.7 (1.0-2.1); ALBUMIN 2.6 g/dL (3.5-5.0); ALT/SGPT 48 U/L (9-52); AST/SGOT 54 U/L (14-36); BLOOD UREA NITROGEN 53 mg/dl (7-17); CALCIUM 8.9 mg/dL (8.4-10.2); GFR AFRICAN-AMERICAN > 60; GFR NON-AFRICAN AMERICAN 58
[2017-03-05] MEDS: fentaNYL 1,000 MCG in Sodium Chloride 0.9% 80 ML IV SCH ×3 (07:28→21:17)
--- NOTE | 2017-03-05 08:32 | PN ---
DATE: 03/05/2017 SUBJECTIVE: The patient is seen and examined. Interim events noted. Consults noted and appreciated. The patient remains in the Intensive Care Unit on ventilator. Not able to provide informative history or review of systems. PHYSICAL EXAMINATION: GENERAL: The patient is currently orally intubated by endotracheal tube on mechanical ventilation. Tolerating current setting without any acute respiratory distress. VITAL SIGNS: Stable. HEART: S1 and S2, normal and regular. LUNGS: Good bilateral air exchange. Occasional transmitted sounds. No crepitations. ABDOMEN: Ascites. No sign of acute abdomen. No guarding. No rigidity. No rebound. Bowel sounds are plus. EXTREMITIES: No edema. No calf swelling. No tenderness. No acute ischemia. CENTRAL NERVOUS SYSTEM: Essentially unchanged. DIAGNOSTIC DATA: Available diagnostic data reviewed. Telemetry monitoring does not reveal significant arrhythmias. ASSESSMENT AND PLAN: Overall, the patient's general medical condition is critically sick, but is hemodynamically stable. Plan as ordered. Ankur Lopez MD
--- NOTE | 2017-03-05 08:57 | CP.CCUPN ---
CCU Subjective - Physician Review Events Since Last Encounter (Free Text): 03/05/17 08:55 Sedated, intubated, BP has been stable , on no pressors, afebrile, good urine output but in positive fluid balance CCU Objective - Vital Signs / Intake & Output Vital Signs (Last 4 hours): Vital Signs Temp Pulse Resp BP Pulse Ox 03/05/17 08:00 97.6 F 79 49 H 90/47 L 100 03/05/17 06:45 65 18 101/41 L 100 03/05/17 06:00 78 18 92/44 L 100 03/05/17 05:00 97.9 F 78 18 117/68 100 Intake and Output (Last 8hrs): Intake & Output 03/04/17 03/05/17 03/05/17 22:59 06:59 14:59 Intake Total 1135 995 0 Output Total 250 325 Balance 885 670 0 Weight 203 lb Intake: IV 715 625 0 Intake, Piggyback 50 Tube Feeding 370 170 Free Water Flush 200 Output: Gastric Amount 150 75 Stomach 150 75 Urine 100 250 Urethral (Gaffney) 100 250 Other: # Bowel Movements 1 1 - Physical Exam Narrative Physical Exam (Free Text): 03/05/17 08:56 P/E Neck: No JVD Lungs : left basal crackles Heart: No gallop Abdomen: slight distention, soft Ext: No edema Head: Positive for: Atraumatic, Normocephalic. Negative for: Tenderness, Contusion, Swelling, Ecchymosis Pupils: Positive for: PERRL, Sluggish Conjunctiva: Positive for: Icteric. Negative for: Injected Ears: Positive for: Normal Mouth: Positive for: Moist Mucous Membranes Neck: Positive for: Normal Range of Motion, Trachea Midline. Negative for: Meningeal Signs, MIDLINE TENDERNESS, Paraspinal Tenderness, JVD, Lymphadenopathy , Bruit, Other Respiratory/Chest: Positive for: Accessory Muscle Use, Wheezes, Decreased Breath Sounds, Rales, Rhonchi, Tachypneic. Negative for: Good Air Exchange, Respiratory Distress Cardiovascular: Positive for: Normal S1, S2, Peripheal Pulses Present, Tachycardic. Negative for: Murmurs, Irregular Rhythm Abdomen: Positive for: Distention, Normal Bowel Sounds, Peritoneal Signs. Negative for: Tenderness Back: Negative for: CVA Tenderness Upper Extremity: Positive for: Normal Inspection, NORMAL PULSES. Negative for: Cyanosis, Edema Lower Extremity: Positive for: Normal Inspection, NORMAL PULSES, Capillary Refill < 2 s. Negative for: Edema, CALF TENDERNESS Neurological: Positive for: Other (Lethargic) Skin: Positive for: Warm. Negative for: Rashes Psychiatric: Negative for: Alert, Oriented x 3, Normal Insight - Medications Active Medications: Active Medications Generic Name Dose Route Start Last Admin Trade Name Freq PRN Reason Stop Dose Admin Acetaminophen 650 mg 03/02/17 20:39 Tylenol 325mg Tab PO Q6H PRN Pain, Mild (1-3) Acetaminophen 650 mg 03/02/17 20:39 Tylenol 325mg Tab PO Q6H PRN Fever >100.4 F Albuterol/Ipratropium 3 ml 03/03/17 00:00 03/05/17 07:47 Duoneb 3 Mg/0.5 Mg (3 Ml) Ud INH 3 ml RQ4 FOREST Administration Enoxaparin Sodium 40 mg 03/03/17 09:00 03/04/17 08:23 Lovenox SC 40 mg DAILY [facility] Administration Protocol Folic Acid 1 mg 03/03/17 09:00 03/04/17 08:22 Folic Acid PO 1 mg DAILY FOREST Administration Tigecycline 50 mg/ Sodium 100 mls @ 100 mls/hr 03/03/17 05:00 03/05/17 05:29 Chloride IVPB 100 mls/hr Q12H FOREST Administration Protocol Fentanyl 1,000 mcg/ Sodium 100 mls @ 8.79 mls/hr 03/04/17 04:33 03/05/17 07: 28 Chloride IV 2 mcg/kg/hr .[id number] FOREST 17.59 mls/hr Protocol Administration 1 MCG/KG/HR Sodium Chloride 1,000 mls @ 75 mls/hr 03/05/17 04:30 03/05/17 04:20 Sodium Chloride 0.45% IV 03/06/17 04:27 75 mls/hr .[id number] [facility] Administration Lactulose 20 gm 03/02/17 22:00 03/04/17 22:56 Enulose PO 20 gm QID [facility]EST Administration Lidocaine 1 ea 03/03/17 09:00 03/04/17 08:23 Lidoderm TD 1 ea DAILY [facility] Administration Methylprednisolone 40 mg 03/03/17 01:00 03/05/17 00:23 Solu-Medrol IVP 40 mg Q8 [facility]EST Administration Multivitamins/Minerals 1 tab 03/03/17 09:00 03/04/17 08:25 Therapeutic-M Tab PO 1 tab DAILY [facility] Administration Nystatin 1 applic 03/03/17 09:00 03/04/17 16:19 Mycostatin Cream TOP 1 applic TID [facility]EST Administration Nystatin 1 applic 03/02/17 22:00 03/04/17 22:30 Nystop Topical Powder TOP 1 applic QID FOREST Administration Pantoprazole Sodium 40 mg 03/03/17 09:00 03/04/17 08:24 Protonix Inj IVP 40 mg DAILY [facility] Administration Rifaximin 550 mg 03/03/17 09:00 03/04/17 16:20 Xifaxan PO 550 mg BID [facility] Administration Protocol Thiamine HCl 100 mg 03/03/17 09:00 03/04/17 08:25 Vitamin B1 Tab PO 100 mg DAILY [facility] Administration - Patient Studies Lab Studies: Microbiology Studies 03/02/17 09:25 Urine Culture - Final Urine,Gaffney Escherichia Coli 02/27/17 12:40 Blood Culture - Final Blood NO GROWTH AFTER 5 DAYS Gram Stain - Final TEST NOT PERFORMED 02/27/17 22:50 Blood Culture - Final Blood NO GROWTH AFTER 5 DAYS Gram Stain - Final TEST NOT PERFORMED 03/02/17 Unknown Gram Stain - Final Trachasp Sputum Culture - Preliminary NORMAL ORAL MARK Lab Studies 03/05/17 03/05/17 03/05/17 Range/Units 05:30 05:30 04:14 WBC 12.4 H (4.8-10.8) K/uL RBC 2.86 L (3.80-5.20) Mil/uL Hgb 9.4 L (12.0-16.0) g/dL Hct 28.9 L (34.0-47.0) % MCV 101.1 H D (81.0-99.0) fl MCH 32.8 H (27.0-31.0) pg MCHC 32.5 L (33.0-37.0) g/dL RDW 16.8 H (11.5-14.5) % Plt Count 139 (130-400) K/uL PT (9.8-13.1) Seconds INR (0.9-1.2) pCO2 36 (35-45) mm/Hg pO2 104 H (80-100) mm/Hg HCO3 25.8 (21-28) mmol/L ABG pH 7.45 (7.35-7.45) ABG Total CO2 26.1 (22-28) mmol/L ABG O2 Saturation 99.6 H (95-98) % ABG O2 Content 13.5 L (15-23) ML/dL ABG Base Excess 1.1 (-2.0-3.0) mmol/L ABG Hemoglobin 9.8 L (11.7-17.4) g/dL ABG Carboxyhemoglobin 1.3 (0.5-1.5) % POC ABG HHb (Measured) 0.4 (0.0-5.0) % ABG Methemoglobin 1.4 (0.0-3.0) % ABG O2 Capacity 13.6 L (16-24) mL/dL Dick Test Yes A-a O2 Difference 208.0 mm/Hg Hgb O2 Saturation 96.9 (95.0-98.0) % Vent Mode A/c Mechanical Rate 18 FiO2 50.0 % Tidal Volume 500 PEEP 5 Sodium 135 (132-148) mmol/l Potassium 4.1 (3.6-5.0) MMOL/L Chloride 103 (98-107) mmol/L Carbon Dioxide 24 (22-30) mmol/L Anion Gap 12 (10-20) BUN 53 H (7-17) mg/dl Creatinine 1.0 (0.7-1.2) mg/dl Est GFR ( Amer) > 60 Est GFR (Non-Af Amer) 58 Random Glucose 127 H (65-105) mg/dL Calcium 8.9 (8.4-10.2) mg/dL Total Bilirubin 1.9 H (0.2-1.3) mg/dl AST 54 H (14-36) U/L ALT 48 (9-52) U/L Alkaline Phosphatase 129 H (38-126) U/L Total Protein 6.4 (6.3-8.2) G/DL Albumin 2.6 L (3.5-5.0) g/dL Globulin 3.8 (2.2-3.9) gm/dL Albumin/Globulin Ratio 0.7 L (1.0-2.1) 03/04/17 03/04/17 Range/Units 14:30 11:21 WBC (4.8-10.8) K/uL RBC (3.80-5.20) Mil/uL Hgb (12.0-16.0) g/dL Hct (34.0-47.0) % MCV (81.0-99.0) fl MCH (27.0-31.0) pg MCHC (33.0-37.0) g/dL RDW (11.5-14.5) % Plt Count (130-400) K/uL PT 21.0 H D 98.7 H* (9.8-13.1) Seconds INR 1.9 H D 8.5 H D (0.9-1.2) pCO2 (35-45) mm/Hg pO2 (80-100) mm/Hg HCO3 (21-28) mmol/L ABG pH (7.35-7.45) ABG Total CO2 (22-28) mmol/L ABG O2 Saturation (95-98) % ABG O2 Content (15-23) ML/dL ABG Base Excess (-2.0-3.0) mmol/L ABG Hemoglobin (11.7-17.4) g/dL ABG Carboxyhemoglobin (0.5-1.5) % POC ABG HHb (Measured) (0.0-5.0) % ABG Methemoglobin (0.0-3.0) % ABG O2 Capacity (16-24) mL/dL Dick Test A-a O2 Difference mm/Hg Hgb O2 Saturation (95.0-98.0) % Vent Mode Mechanical Rate FiO2 % Tidal Volume PEEP Sodium (132-148) mmol/l Potassium (3.6-5.0) MMOL/L Chloride (98-107) mmol/L Carbon Dioxide (22-30) mmol/L Anion Gap (10-20) BUN (7-17) mg/dl Creatinine (0.7-1.2) mg/dl Est GFR ( Amer) Est GFR (Non-Af Amer) Random Glucose (65-105) mg/dL Calcium (8.4-10.2) mg/dL Total Bilirubin (0.2-1.3) mg/dl AST (14-36) U/L ALT (9-52) U/L Alkaline Phosphatase (38-126) U/L Total Protein (6.3-8.2) G/DL Albumin (3.5-5.0) g/dL Globulin (2.2-3.9) gm/dL Albumin/Globulin Ratio (1.0-2.1) Laboratory Results - last 24 hr 03/04/17 03/04/17 03/05/17 11:21 14:30 04:14 WBC RBC Hgb Hct MCV MCH MCHC RDW Plt Count PT 98.7 H* 21.0 H D INR 8.5 H D 1.9 H D pCO2 36 pO2 104 H HCO3 25.8 ABG pH 7.45 ABG Total CO2 26.1 ABG O2 Saturation 99.6 H ABG O2 Content 13.5 L ABG Base Excess 1.1 ABG Hemoglobin 9.8 L ABG Carboxyhemoglobin 1.3 POC ABG HHb (Measured) 0.4 ABG Methemoglobin 1.4 ABG O2 Capacity 13.6 L Dick Test Yes A-a O2 Difference 208.0 Hgb O2 Saturation 96.9 Vent Mode A/c Mechanical Rate 18 FiO2 50.0 Tidal Volume 500 PEEP 5 Sodium Potassium Chloride Carbon Dioxide Anion Gap BUN Creatinine Est GFR ( Amer) Est GFR (Non-Af Amer) Random Glucose Calcium Total Bilirubin AST ALT Alkaline Phosphatase Total Protein Albumin Globulin Albumin/Globulin Ratio 03/05/17 03/05/17 05:30 05:30 WBC 12.4 H RBC 2.86 L Hgb 9.4 L Hct 28.9 L MCV 101.1 H D MCH 32.8 H MCHC 32.5 L RDW 16.8 H Plt Count 139 PT INR pCO2 pO2 HCO3 ABG pH ABG Total CO2 ABG O2 Saturation ABG O2 Content ABG Base Excess ABG Hemoglobin ABG Carboxyhemoglobin POC ABG HHb (Measured) ABG Methemoglobin ABG O2 Capacity Dick Test A-a O2 Difference Hgb O2 Saturation Vent Mode Mechanical Rate FiO2 Tidal Volume PEEP Sodium 135 Potassium 4.1 Chloride 103 Carbon Dioxide 24 Anion Gap 12 BUN 53 H Creatinine 1.0 Est GFR ( Amer) > 60 Est GFR (Non-Af Amer) 58 Random Glucose 127 H Calcium 8.9 Total Bilirubin 1.9 H AST 54 H ALT 48 Alkaline Phosphatase 129 H Total Protein 6.4 Albumin 2.6 L Globulin 3.8 Albumin/Globulin Ratio 0.7 L Critical Care Progress Note - Ventilator Checklist Head of Bed 30 Degrees: Yes - Vent Settings MODE:: CPAP - Nutrition Nutrition: Nutrition Category Date Time Status NPO Diet [DIET] Diets 03/01/17 Breakfast Active Assessment/Plan - Assessment and Plan (Free Text) Assessment: Assessment: 03/05 Acute respiratory failure with hypoxemia and Hypercapnia in the setting of Bilateral pneumonia , severe Respiratory muscle with underlying Obstructive lung disease, stable on vent with limited pulmonary reserve and hypoventilation from obesity. COPD exacerbations Bilateral pneumonia Hepatic encephalopathy Abdominal pain R/O SBObstruction PLAN: 03/05 Changed vent setting to CPAP PS10 PEEP 5 Fio 50% IVF rate to 40 cc/h, pt is also on tube feeding, total hourly intake would be > 75 cc/h Continue with ICU care for hemodynamic and Respiratory monitoring Maintain MAP 65-75 Sedation with Propofol Continue IV antibiotics with Tygacil Continue IV Methylprednisolone to 40 mg IVPB Q8H Continue Lactulose and Rifaximine Continue nebulizer treatment Continue diuretics as needed Strict I&O, negative fluid balance Aggressive pulmonary toilet, chest PT, suctioning Send tracheal aspirate for gram stain and C/S Maintain aspiration precautions Tube feeding Surgery and ID consult appreciated GI/DVT PPX: PPI, Lovenox
[2017-03-05] MEDS: Enoxaparin 40 mg Syringe SC SCH (09:04)
[2017-03-05] MEDS: Multivitamin With Minerals Tab PO SCH (09:05)
[2017-03-05] MEDS: Lidocaine 5% Patch TD SCH (09:06)
--- NOTE | 2017-03-05 10:17 | CP.PCM.PN ---
<Maegan Reyes - Last Filed: 03/05/17 10:22> Subjective - Date & Time of Evaluation Date of Evaluation: 03/05/17 Time of Evaluation: 09:45 - Subjective Subjective: PGY 4 GI Follow-up Pt still intubated on sedation but still agitation + loose Bm as per RN no overnight events ROS: 10 point could not be conducted Objective - Vital Signs/Intake and Output Vital Signs (last 24 hours): Temp Pulse Resp BP Pulse Ox 97.6 F 79 49 H 90/47 L 100 03/05/17 08:00 03/05/17 08:00 03/05/17 08:00 03/05/17 08:00 03/05/17 08:00 Intake and Output: 03/05/17 03/05/17 06:59 18:59 Intake Total 1330 0 Output Total 475 Balance 855 0 - Medications Medications: Current Medications Acetaminophen (Tylenol 325mg Tab) 650 mg PO Q6H PRN PRN Reason: Pain, Mild (1-3) Acetaminophen (Tylenol 325mg Tab) 650 mg PO Q6H PRN PRN Reason: Fever >100.4 F Albuterol/Ipratropium (Duoneb 3 Mg/0.5 Mg (3 Ml) Ud) 3 ml INH RQ4 [facility] Last Admin: 03/05/17 07:47 Dose: 3 ml Enoxaparin Sodium (Lovenox) 40 mg SC DAILY [facility] PRN Reason: Protocol Last Admin: 03/05/17 09:04 Dose: 40 mg Folic Acid (Folic Acid) 1 mg PO DAILY [facility] Last Admin: 03/05/17 09:05 Dose: 1 mg Tigecycline 50 mg/ Sodium (Chloride) 100 mls @ 100 mls/hr IVPB Q12H [facility] PRN Reason: Protocol Last Admin: 03/05/17 05:29 Dose: 100 mls/hr Fentanyl 1,000 mcg/ Sodium (Chloride) 100 mls @ 8.79 mls/hr IV .[id number] [facility]; 1 MCG/KG/HR PRN Reason: Protocol Last Admin: 03/05/17 07:28 Dose: 2 mcg/kg/hr, 17.59 mls/hr Sodium Chloride (Sodium Chloride 0.45%) 1,000 mls @ 75 mls/hr IV .[id number] [facility] Stop: 03/06/17 04:27 Last Admin: 03/05/17 04:20 Dose: 75 mls/hr Lactulose (Enulose) 20 gm PO QID [facility] Last Admin: 03/05/17 09:06 Dose: 20 gm Lidocaine (Lidoderm) 1 ea TD DAILY [facility] Last Admin: 03/05/17 09:06 Dose: 1 ea Methylprednisolone (Solu-Medrol) 40 mg IVP Q8 [facility] Last Admin: 03/05/17 09:07 Dose: 40 mg Multivitamins/Minerals (Therapeutic-M Tab) 1 tab PO DAILY [facility] Last Admin: 03/05/17 09:05 Dose: 1 tab Nystatin (Mycostatin Cream) 1 applic TOP TID [facility] Last Admin: 03/05/17 09:25 Dose: 1 applic Nystatin (Nystop Topical Powder) 1 applic TOP QID [facility] Last Admin: 03/05/17 09:07 Dose: 1 applic Pantoprazole Sodium (Protonix Inj) 40 mg IVP DAILY [facility] Last Admin: 03/05/17 09:05 Dose: 40 mg Rifaximin (Xifaxan) 550 mg PO BID [facility] PRN Reason: Protocol Last Admin: 03/05/17 09:05 Dose: 550 mg Thiamine HCl (Vitamin B1 Tab) 100 mg PO DAILY [facility] Last Admin: 03/05/17 09:07 Dose: 100 mg - Labs Labs: 03/05/17 05:30 03/05/17 05:30 PT 21.0 Seconds (9.8-13.1) H D 03/04/17 14:30 INR 1.9 (0.9-1.2) H D 03/04/17 14:30 APTT 30.4 Seconds (25.6-37.1) 03/02/17 08:11 - Constitutional Appears: Non-toxic, Agitated - Head Exam Head Exam: NORMAL INSPECTION - Eye Exam Eye Exam: Normal appearance - Neck Exam Neck Exam: Normal Inspection - Respiratory Exam Respiratory Exam: Clear to Ausculation Bilateral, NORMAL BREATHING PATTERN. absent: Rales, Rhonchi, Wheezes, Respiratory Distress Assessment and Plan - Assessment and Plan (Free Text) Assessment: Zehra Jules is a 51 year old female with history of ETOH cirrhosis, COPD, obesity admitted with COPD exacerbation, also with altered mental status now. 1. Alcoholic cirrhosis 2. Hepatic encephalopathy 3. elevated LFTs Plan: - intubated now for hypercapneic respiratory failure - reviewed CT, trace ascities, not sig enough to tap - would continue lactulose and rifaxamin for encephalopathy, adjust lactulose for 2-3 BM daily - continue antibiotics/steroids for COPD per pulmonary -no acute GI intervention indicated at this time -will sign off -MELD 15 03/04/17 D/W Dr. Gonzales <Andrés Gonzales MD - Last Filed: 03/05/17 14:17> Objective - Vital Signs/Intake and Output Vital Signs (last 24 hours): Temp Pulse Resp BP Pulse Ox 98.5 F 87 18 118/70 99 03/05/17 12:00 03/05/17 12:00 03/05/17 12:00 03/05/17 12:00 03/05/17 12:00 Intake and Output: 03/05/17 03/05/17 06:59 18:59 Intake Total 1330 1160 Output Total 475 Balance 855 1160 - Medications Medications: Current Medications Acetaminophen (Tylenol 325mg Tab) 650 mg PO Q6H PRN PRN Reason: Pain, Mild (1-3) Acetaminophen (Tylenol 325mg Tab) 650 mg PO Q6H PRN PRN Reason: Fever >100.4 F Albuterol/Ipratropium (Duoneb 3 Mg/0.5 Mg (3 Ml) Ud) 3 ml INH RQ4 [facility] Last Admin: 03/05/17 11:30 Dose: 3 ml Enoxaparin Sodium (Lovenox) 40 mg SC DAILY [facility] PRN Reason: Protocol Last Admin: 03/05/17 09:04 Dose: 40 mg Folic Acid (Folic Acid) 1 mg PO DAILY [facility] Last Admin: 03/05/17 09:05 Dose: 1 mg Tigecycline 50 mg/ Sodium (Chloride) 100 mls @ 100 mls/hr IVPB Q12H [facility] PRN Reason: Protocol Last Admin: 03/05/17 05:29 Dose: 100 mls/hr Fentanyl 1,000 mcg/ Sodium (Chloride) 100 mls @ 8.79 mls/hr IV .[id number] [facility]; 1 MCG/KG/HR PRN Reason: Protocol Last Admin: 03/05/17 13:02 Dose: 2 mcg/kg/hr, 17.59 mls/hr Sodium Chloride (Sodium Chloride 0.45%) 1,000 mls @ 75 mls/hr IV .[id number] [facility] Stop: 03/06/17 04:27 Last Admin: 03/05/17 04:20 Dose: 75 mls/hr Lactulose (Enulose) 20 gm PO QID [facility] Last Admin: 03/05/17 12:22 Dose: Not Given Lidocaine (Lidoderm) 1 ea TD DAILY [facility] Last Admin: 03/05/17 09:06 Dose: 1 ea Methylprednisolone (Solu-Medrol) 40 mg IVP Q8 [facility] Last Admin: 03/05/17 09:07 Dose: 40 mg Multivitamins/Minerals (Therapeutic-M Tab) 1 tab PO DAILY [facility] Last Admin: 03/05/17 09:05 Dose: 1 tab Nystatin (Mycostatin Cream) 1 applic TOP TID [facility] Last Admin: 03/05/17 12:01 Dose: 1 applic Nystatin (Nystop Topical Powder) 1 applic TOP QID [facility] Last Admin: 03/05/17 12:02 Dose: 1 applic Pantoprazole Sodium (Protonix Inj) 40 mg IVP DAILY [facility] Last Admin: 03/05/17 09:05 Dose: 40 mg Rifaximin (Xifaxan) 550 mg PO BID [facility] PRN Reason: Protocol Last Admin: 03/05/17 09:05 Dose: 550 mg Thiamine HCl (Vitamin B1 Tab) 100 mg PO DAILY [facility] Last Admin: 03/05/17 09:07 Dose: 100 mg - Labs Labs: 03/05/17 05:30 03/05/17 05:30 PT 21.0 Seconds (9.8-13.1) H D 03/04/17 14:30 INR 1.9 (0.9-1.2) H D 03/04/17 14:30 APTT 30.4 Seconds (25.6-37.1) 03/02/17 08:11 Attending/Attestation - Attestation I have personally seen and examined this patient.: Yes I have fully participated in the care of the patient.: Yes I have reviewed all pertinent clinical information, including history, physical exam and plan: Yes Notes (Text): 03/05/17 14:17 Patient seen with GI fellow on rounds this am in MICU. This is a 51 year old female with history of ETOH cirrhosis, COPD, obesity admitted with COPD exacerbation, and hypercarbic respiratory failure s/p intubation in setting of B /L PNA. Admitted last month with similar complaint. On lactulose with adequate bowel movements. On PE not enough ascitic fluid for tap. On broad spectrum antibiotics as per ID for E coli/ VRE UTI. Continue lactulose and rifaximin for HE prophylaxis. Rest of plan as per MICU/primary team. GI/DVT prophylaxis. Will sign off now. Thank you for letting us participate in the care of your patient
--- NOTE | 2017-03-05 11:10 | RAD ---
HISTORY: vented COMPARISON: 03/04/2017 FINDINGS: LUNGS: Upper lobe opacities have resolved. Left perihilar opacity persists. PLEURA: No significant pleural effusion identified, no pneumothorax apparent. CARDIOVASCULAR: Congestive change. ET tube unchanged. NG tube unchanged. OSSEOUS STRUCTURES: No significant abnormalities. VISUALIZED UPPER ABDOMEN: Normal. OTHER FINDINGS: None. IMPRESSION: Resolved upper lobe opacities with persistent left perihilar opacity and congestive change.
--- NOTE | 2017-03-05 11:53 | CP.PCM.PN ---
Subjective - Date & Time of Evaluation Date of Evaluation: 03/05/17 Time of Evaluation: 11:54 - Subjective Subjective: STILL INTUBATED AND BEING VENTILATED HEMODYNAMICALY STABLE Objective - Vital Signs/Intake and Output Vital Signs (last 24 hours): Temp Pulse Resp BP Pulse Ox 97.6 F 80 18 102/56 L 100 03/05/17 08:00 03/05/17 09:00 03/05/17 09:00 03/05/17 09:00 03/05/17 09:00 Intake and Output: 03/05/17 03/05/17 06:59 18:59 Intake Total 1330 400 Output Total 475 Balance 855 400 - Medications Medications: Current Medications Acetaminophen (Tylenol 325mg Tab) 650 mg PO Q6H PRN PRN Reason: Pain, Mild (1-3) Acetaminophen (Tylenol 325mg Tab) 650 mg PO Q6H PRN PRN Reason: Fever >100.4 F Albuterol/Ipratropium (Duoneb 3 Mg/0.5 Mg (3 Ml) Ud) 3 ml INH RQ4 [facility] Last Admin: 03/05/17 07:47 Dose: 3 ml Enoxaparin Sodium (Lovenox) 40 mg SC DAILY [facility] PRN Reason: Protocol Last Admin: 03/05/17 09:04 Dose: 40 mg Folic Acid (Folic Acid) 1 mg PO DAILY [facility] Last Admin: 03/05/17 09:05 Dose: 1 mg Tigecycline 50 mg/ Sodium (Chloride) 100 mls @ 100 mls/hr IVPB Q12H [facility] PRN Reason: Protocol Last Admin: 03/05/17 05:29 Dose: 100 mls/hr Fentanyl 1,000 mcg/ Sodium (Chloride) 100 mls @ 8.79 mls/hr IV .[id number] [facility]; 1 MCG/KG/HR PRN Reason: Protocol Last Admin: 03/05/17 07:28 Dose: 2 mcg/kg/hr, 17.59 mls/hr Sodium Chloride (Sodium Chloride 0.45%) 1,000 mls @ 75 mls/hr IV .[id number] [facility] Stop: 03/06/17 04:27 Last Admin: 03/05/17 04:20 Dose: 75 mls/hr Lactulose (Enulose) 20 gm PO QID [facility] Last Admin: 03/05/17 09:06 Dose: 20 gm Lidocaine (Lidoderm) 1 ea TD DAILY [facility] Last Admin: 03/05/17 09:06 Dose: 1 ea Methylprednisolone (Solu-Medrol) 40 mg IVP Q8 [facility] Last Admin: 03/05/17 09:07 Dose: 40 mg Multivitamins/Minerals (Therapeutic-M Tab) 1 tab PO DAILY [facility] Last Admin: 03/05/17 09:05 Dose: 1 tab Nystatin (Mycostatin Cream) 1 applic TOP TID [facility] Last Admin: 03/05/17 09:25 Dose: 1 applic Nystatin (Nystop Topical Powder) 1 applic TOP QID [facility] Last Admin: 03/05/17 09:07 Dose: 1 applic Pantoprazole Sodium (Protonix Inj) 40 mg IVP DAILY [facility] Last Admin: 03/05/17 09:05 Dose: 40 mg Rifaximin (Xifaxan) 550 mg PO BID [facility] PRN Reason: Protocol Last Admin: 03/05/17 09:05 Dose: 550 mg Thiamine HCl (Vitamin B1 Tab) 100 mg PO DAILY [facility] Last Admin: 03/05/17 09:07 Dose: 100 mg - Labs Labs: 03/05/17 05:30 03/05/17 05:30 PT 21.0 Seconds (9.8-13.1) H D 03/04/17 14:30 INR 1.9 (0.9-1.2) H D 03/04/17 14:30 APTT 30.4 Seconds (25.6-37.1) 03/02/17 08:11 - Constitutional Appears: Chronically Ill - Head Exam Head Exam: ATRAUMATIC, NORMAL INSPECTION, NORMOCEPHALIC - Eye Exam Eye Exam: EOMI, Normal appearance, PERRL Pupil Exam: NORMAL ACCOMODATION, PERRL - ENT Exam ENT Exam: Mucous Membranes Moist, Normal Exam - Neck Exam Neck Exam: Full ROM, Normal Inspection. absent: Lymphadenopathy - Respiratory Exam Respiratory Exam: Rales Additional comments: ON THE VENTILATOR - Cardiovascular Exam Cardiovascular Exam: REGULAR RHYTHM, +S1, +S2. absent: Murmur - GI/Abdominal Exam GI & Abdominal Exam: Soft, Normal Bowel Sounds. absent: Tenderness - Rectal Exam Rectal Exam: NORMAL INSPECTION - Extremities Exam Extremities Exam: Full ROM, Normal Capillary Refill, Normal Inspection. absent : Joint Swelling, Pedal Edema - Back Exam Back Exam: NORMAL INSPECTION - Skin Skin Exam: Dry, Intact, Normal Color, Warm Assessment and Plan - Assessment and Plan (Free Text) Assessment: ACUTE RESPIRATORY FAILURE PNEUMONIA METABOLIC ENCEPHALOPATHY Plan: CONTINUE CURRENT RX PULMONARY TOILETRY IV ANTIBIOTICS EXTUBATE WHEN CLINICALLY STABLE
[2017-03-06] MEDS: MethylPREDNISolone 40 mg Vial IVP SCH ×3 (00:03→16:09)
[2017-03-06] MEDS: fentaNYL 1,000 MCG in Sodium Chloride 0.9% 80 ML IV SCH ×2 (05:26→13:05)
[2017-03-06] MEDS: Albuterol-Ipratrop 3 mg / 0.5 (3 ml) UD INH SCH ×5 (05:27→20:36)
[2017-03-06 05:40] LABS: ABG ALLEN TEST YES; ARTERIAL BLOOD GAS HCO3 22.2 mmol/L (21-28); ARTERIAL BLOOD GAS O2 CAPACITY 15.1 mL/dL (16-24); ARTERIAL BLOOD GAS O2 CONTENT 15.1 ML/dL (15-23); ARTERIAL BLOOD GAS O2 SAT 99.8 % (95-98); ARTERIAL BLOOD GAS PCO2 50 mm/Hg (35-45); ARTERIAL BLOOD GAS PH 7.28 (7.35-7.45); ARTERIAL BLOOD GAS PO2 150 mm/Hg (80-100)
[2017-03-06 06:58] LABS: MEAN CELL VOLUME 101.4 fl (81.0-99.0); MEAN CORPUSCULAR HEMOGLOBIN 31.8 pg (27.0-31.0); MEAN CORPUSCULAR HGB CONC 31.4 g/dL (33.0-37.0); RBC 2.89 Mil/uL (3.80-5.20); RED CELL DISTRIBUTION WIDTH 17.1 % (11.5-14.5)
[2017-03-06 07:23] LABS: WHITE BLOOD COUNT 43.8 K/uL (4.8-10.8)
[2017-03-06 07:24] LABS: HEMOGLOBIN 9.2 g/dL (12.0-16.0)
[2017-03-06 07:38] LABS: ALB/GLOB RATIO 0.6 (1.0-2.1); ALBUMIN 2.4 g/dL (3.5-5.0); ALT/SGPT 55 U/L (9-52); AST/SGOT 50 U/L (14-36); BLOOD UREA NITROGEN 66 mg/dl (7-17); CALCIUM 7.7 mg/dL (8.4-10.2); GFR AFRICAN-AMERICAN > 60; GFR NON-AFRICAN AMERICAN 58
--- NOTE | 2017-03-06 08:25 | CP.CCUPN ---
CCU Subjective - Physician Review Events Since Last Encounter (Free Text): 03/06/17 08:22 Yesterday was stable and CPAP was tried , did not tolerate more than 15 minutes This morning WBC count suddenly jumped to > 40 K, pt afebrile also hes high PC2 on ABG, causing mild resp acidosis BP has been stable Abdomen : distended, has ascites. CCU Objective - Vital Signs / Intake & Output Vital Signs (Last 4 hours): Vital Signs Temp Pulse Resp BP Pulse Ox 03/06/17 08:00 97.0 F L 83 24 101/51 L 100 03/06/17 06:42 85 18 97/60 L 100 03/06/17 06:00 86 18 97/69 L 99 03/06/17 05:00 109 H 20 149/94 H 95 Intake and Output (Last 8hrs): Intake & Output 03/05/17 03/06/17 03/06/17 22:59 06:59 14:59 Intake Total 775 2410 120 Output Total 200 250 Balance 575 2160 120 Intake: IV 285 1800 75 Intake, Piggyback 100 100 Oral 80 Tube Feeding 240 280 45 Free Water Flush 150 150 Output: Gastric Amount 0 Stomach 0 Urine 200 250 Urethral (Gaffney) 200 250 Other: # Bowel Movements 1 - Physical Exam Narrative Physical Exam (Free Text): 03/06/17 08:25 P/E Neck: No JVD Lungs: Rt basal crackels Abdomen : distended, BS +ve, not very soft but not firm, unchanged, has ascites Ext: No edema Heart: no gallop Head: Positive for: Atraumatic, Normocephalic. Negative for: Tenderness, Contusion, Swelling, Ecchymosis Pupils: Positive for: PERRL, Sluggish Conjunctiva: Positive for: Icteric. Negative for: Injected Ears: Positive for: Normal Mouth: Positive for: Moist Mucous Membranes Neck: Positive for: Normal Range of Motion, Trachea Midline. Negative for: Meningeal Signs, MIDLINE TENDERNESS, Paraspinal Tenderness, JVD, Lymphadenopathy , Bruit, Other Respiratory/Chest: Positive for: Accessory Muscle Use, Wheezes, Decreased Breath Sounds, Rales, Rhonchi, Tachypneic. Negative for: Good Air Exchange, Respiratory Distress Cardiovascular: Positive for: Normal S1, S2, Peripheal Pulses Present, Tachycardic. Negative for: Murmurs, Irregular Rhythm Abdomen: Positive for: Distention, Normal Bowel Sounds, Peritoneal Signs. Negative for: Tenderness Back: Negative for: CVA Tenderness Upper Extremity: Positive for: Normal Inspection, NORMAL PULSES. Negative for: Cyanosis, Edema Lower Extremity: Positive for: Normal Inspection, NORMAL PULSES, Capillary Refill < 2 s. Negative for: Edema, CALF TENDERNESS Neurological: Positive for: Other (Lethargic) Skin: Positive for: Warm. Negative for: Rashes Psychiatric: Negative for: Alert, Oriented x 3, Normal Insight - Medications Active Medications: Active Medications Generic Name Dose Route Start Last Admin Trade Name Freq PRN Reason Stop Dose Admin Acetaminophen 650 mg 03/02/17 20:39 Tylenol 325mg Tab PO Q6H PRN Pain, Mild (1-3) Acetaminophen 650 mg 03/02/17 20:39 Tylenol 325mg Tab PO Q6H PRN Fever >100.4 F Albuterol/Ipratropium 3 ml 03/03/17 00:00 03/06/17 07:16 Duoneb 3 Mg/0.5 Mg (3 Ml) Ud INH 3 ml RQ4 [facility] Administration Enoxaparin Sodium 40 mg 03/03/17 09:00 03/05/17 09:04 Lovenox SC 40 mg DAILY [facility] Administration Protocol Folic Acid 1 mg 03/03/17 09:00 03/05/17 09:05 Folic Acid PO 1 mg DAILY [facility] Administration Tigecycline 50 mg/ Sodium 100 mls @ 100 mls/hr 03/03/17 05:00 03/06/17 04:13 Chloride IVPB 100 mls/hr Q12H [facility] Administration Protocol Fentanyl 1,000 mcg/ Sodium 100 mls @ 8.79 mls/hr 03/04/17 04:33 03/06/17 05: 26 Chloride IV 2 mcg/kg/hr .[id number] [facility] 17.59 mls/hr Protocol Administration 1 MCG/KG/HR Lactulose 20 gm 03/02/17 22:00 03/05/17 22:07 Enulose PO 20 gm QID [facility] Administration Lidocaine 1 ea 03/03/17 09:00 03/05/17 09:06 Lidoderm TD 1 ea DAILY [facility] Administration Methylprednisolone 40 mg 03/03/17 01:00 03/06/17 00:03 Solu-Medrol IVP 40 mg Q8 [facility] Administration Multivitamins/Minerals 1 tab 03/03/17 09:00 03/05/17 09:05 Therapeutic-M Tab PO 1 tab DAILY [facility] Administration Nystatin 1 applic 03/03/17 09:00 03/05/17 12:01 Mycostatin Cream TOP 1 applic TID [facility] Administration Nystatin 1 applic 03/02/17 22:00 03/05/17 22:00 Nystop Topical Powder TOP 1 applic QID [facility] Administration Pantoprazole Sodium 40 mg 03/03/17 09:00 03/05/17 09:05 Protonix Inj IVP 40 mg DAILY [facility] Administration Rifaximin 550 mg 03/03/17 09:00 03/05/17 16:37 Xifaxan PO 550 mg BID [facility] Administration Protocol Sodium Chloride 1,000 ml 03/06/17 09:00 Sodium Chloride 0.45% IV Q12 [facility] Thiamine HCl 100 mg 03/03/17 09:00 03/05/17 09:07 Vitamin B1 Tab PO 100 mg DAILY [facility] Administration - Patient Studies Lab Studies: Microbiology Studies 03/02/17 Unknown Gram Stain - Final Trachasp Sputum Culture - Final NORMAL ORAL MARK 03/02/17 09:25 Urine Culture - Final Urine,Gaffney Escherichia Coli 02/27/17 12:40 Blood Culture - Final Blood NO GROWTH AFTER 5 DAYS Gram Stain - Final TEST NOT PERFORMED Lab Studies 03/06/17 03/06/17 03/06/17 Range/Units 05:30 05:30 05:05 WBC 43.8 H* D (4.8-10.8) K/uL RBC 2.89 L (3.80-5.20) Mil/uL Hgb 9.2 L (12.0-16.0) g/dL Hct 29.3 L (34.0-47.0) % MCV 101.4 H (81.0-99.0) fl MCH 31.8 H (27.0-31.0) pg MCHC 31.4 L (33.0-37.0) g/dL RDW 17.1 H (11.5-14.5) % Plt Count 100 L D (130-400) K/uL pCO2 50 H (35-45) mm/Hg pO2 150 H (80-100) mm/Hg HCO3 22.2 (21-28) mmol/L ABG pH 7.28 L (7.35-7.45) ABG Total CO2 25.0 (22-28) mmol/L ABG O2 Saturation 99.8 H (95-98) % ABG O2 Content 15.1 (15-23) ML/dL ABG Base Excess -3.5 L (-2.0-3.0) mmol/L ABG Hemoglobin 11.0 L (11.7-17.4) g/dL ABG Carboxyhemoglobin 1.8 H (0.5-1.5) % POC ABG HHb (Measured) 0.2 (0.0-5.0) % ABG Methemoglobin 2.4 (0.0-3.0) % ABG O2 Capacity 15.1 L (16-24) mL/dL Dick Test Yes A-a O2 Difference 144.0 mm/Hg Hgb O2 Saturation 95.6 (95.0-98.0) % Vent Mode A/c Mechanical Rate 18 FiO2 50.0 % Tidal Volume 500 PEEP 5 Sodium 132 (132-148) mmol/l Potassium 4.5 (3.6-5.0) MMOL/L Chloride 101 (98-107) mmol/L Carbon Dioxide 15 L (22-30) mmol/L Anion Gap 21 H (10-20) BUN 66 H (7-17) mg/dl Creatinine 1.0 (0.7-1.2) mg/dl Est GFR ( Amer) > 60 Est GFR (Non-Af Amer) 58 Random Glucose 158 H (65-105) mg/dL Calcium 7.7 L (8.4-10.2) mg/dL Total Bilirubin 1.9 H (0.2-1.3) mg/dl AST 50 H (14-36) U/L ALT 55 H (9-52) U/L Alkaline Phosphatase 140 H (38-126) U/L Total Protein 6.3 (6.3-8.2) G/DL Albumin 2.4 L (3.5-5.0) g/dL Globulin 3.9 (2.2-3.9) gm/dL Albumin/Globulin Ratio 0.6 L (1.0-2.1) Laboratory Results - last 24 hr 03/06/17 03/06/17 03/06/17 05:05 05:30 05:30 WBC 43.8 H* D RBC 2.89 L Hgb 9.2 L Hct 29.3 L MCV 101.4 H MCH 31.8 H MCHC 31.4 L RDW 17.1 H Plt Count 100 L D pCO2 50 H pO2 150 H HCO3 22.2 ABG pH 7.28 L ABG Total CO2 25.0 ABG O2 Saturation 99.8 H ABG O2 Content 15.1 ABG Base Excess -3.5 L ABG Hemoglobin 11.0 L ABG Carboxyhemoglobin 1.8 H POC ABG HHb (Measured) 0.2 ABG Methemoglobin 2.4 ABG O2 Capacity 15.1 L Dick Test Yes A-a O2 Difference 144.0 Hgb O2 Saturation 95.6 Vent Mode A/c Mechanical Rate 18 FiO2 50.0 Tidal Volume 500 PEEP 5 Sodium 132 Potassium 4.5 Chloride 101 Carbon Dioxide 15 L Anion Gap 21 H BUN 66 H Creatinine 1.0 Est GFR ( Amer) > 60 Est GFR (Non-Af Amer) 58 Random Glucose 158 H Calcium 7.7 L Total Bilirubin 1.9 H AST 50 H ALT 55 H Alkaline Phosphatase 140 H Total Protein 6.3 Albumin 2.4 L Globulin 3.9 Albumin/Globulin Ratio 0.6 L Critical Care Progress Note - Nutrition Nutrition: Nutrition Category Date Time Status NPO Diet [DIET] Diets 03/01/17 Breakfast Active Assessment/Plan - Assessment and Plan (Free Text) Assessment: ASSESSMENT : 03/06 Resp acidosis, with hypercapnia Leukocytosis Acute respiratory failure with hypoxemia and Hypercapnia in the setting of Bilateral pneumonia , severe Respiratory muscle with underlying Obstructive lung disease, stable on vent with limited pulmonary reserve and hypoventilation from obesity. COPD exacerbations Bilateral pneumonia Hepatic encephalopathy Abdominal pain R/O SBObstruction PLAN: 03/06 Vent setting AC, VT 500 rate 18, Fio 0.50 IVF rate to 40 cc/h, pt is also on tube feeding, total hourly intake would be > 75 cc/h ID following, will discussed, o Tygacil, will add vancomycin , will d/w ID Continue with ICU care for hemodynamic and Respiratory monitoring Maintain MAP 65-75 Sedation with Propofol Continue IV Methylprednisolone to 40 mg IVPB Q8H Continue Lactulose and Rifaximine Continue nebulizer treatment Continue diuretics as needed Strict I&O, negative fluid balance Aggressive pulmonary toilet, chest PT, suctioning Send tracheal aspirate for gram stain and C/S Maintain aspiration precautions Tube feeding Surgery and ID consult appreciated GI/DVT PPX: PPI, Lovenox
[2017-03-06] MEDS: Lidocaine 5% Patch TD SCH (08:42)
[2017-03-06] MEDS: Enoxaparin 40 mg Syringe SC SCH (08:43)
--- NOTE | 2017-03-06 09:11 | PN ---
DATE: 03/06/2017 SUBJECTIVE: The patient is seen and examined. Interim events noted. Consults noted and appreciated. The patient remains in the Intensive Care Unit on mechanical ventilation. Not able to provide informative history or review of systems. PHYSICAL EXAMINATION: GENERAL: The patient is already intubated on mechanical ventilation via endotracheal tube, tolerating mechanical ventilating without any acute distress. VITAL SIGNS: Stable. HEART: S1 and S2, normal and regular. LUNGS: Bilateral good air exchange. ABDOMEN: Soft, nontender. The patient has ascites, but no sign of acute abdomen. No guarding. No rigidity. No rebound. Bowel sounds are present and normal. EXTREMITIES: No calf swelling. No tenderness. No acute ischemia. CENTRAL NERVOUS SYSTEM: Essentially unchanged. DIAGNOSTIC DATA: Available diagnostic data reviewed. Telemetry monitoring does not reveal significant arrhythmias. ASSESSMENT AND PLAN: Overall, the patient's general medical condition is essentially same, but long-term prognosis remains poor. Plan as ordered. Ankur Lopez MD
[2017-03-06] MEDS: Sodium Chloride 0.45% 500ml 500 ML SOL IV SCH (10:17)
[2017-03-06] MEDS ORDERED: Vancomycin 1 g Inj IVPB STA (10:42)
[2017-03-06] MEDS: Multivitamin With Minerals Tab PO SCH (10:59)
--- NOTE | 2017-03-06 11:31 | CP.PCM.PN ---
Subjective - Date & Time of Evaluation Date of Evaluation: 03/06/17 Time of Evaluation: 11:32 - Subjective Subjective: STILL CRITICALLY ILL INTUBATED AND ON THE VENT UNABLE TO EXTUBATE BECAUSE OF RESPIRATORY DISTRESS Objective - Vital Signs/Intake and Output Vital Signs (last 24 hours): Temp Pulse Resp BP Pulse Ox 97.0 F L 102 H 18 115/56 L 100 03/06/17 08:00 03/06/17 10:00 03/06/17 10:00 03/06/17 10:00 03/06/17 10:00 Intake and Output: 03/06/17 03/06/17 06:59 18:59 Intake Total 2715 355 Output Total 250 Balance 2465 355 - Medications Medications: Current Medications Acetaminophen (Tylenol 325mg Tab) 650 mg PO Q6H PRN PRN Reason: Pain, Mild (1-3) Acetaminophen (Tylenol 325mg Tab) 650 mg PO Q6H PRN PRN Reason: Fever >100.4 F Albuterol/Ipratropium (Duoneb 3 Mg/0.5 Mg (3 Ml) Ud) 3 ml INH RQ4 [facility] Last Admin: 03/06/17 11:06 Dose: 3 ml Folic Acid (Folic Acid) 1 mg PO DAILY [facility] Last Admin: 03/06/17 08:44 Dose: 1 mg Tigecycline 50 mg/ Sodium (Chloride) 100 mls @ 100 mls/hr IVPB Q12H [facility] PRN Reason: Protocol Last Admin: 03/06/17 04:13 Dose: 100 mls/hr Fentanyl 1,000 mcg/ Sodium (Chloride) 100 mls @ 8.79 mls/hr IV .[id number] [facility]; 1 MCG/KG/HR PRN Reason: Protocol Last Admin: 03/06/17 05:26 Dose: 2 mcg/kg/hr, 17.59 mls/hr Vancomycin HCl 1 gm/ Sodium (Chloride) 250 mls @ 166.667 mls/hr IVPB DAILY [facility] PRN Reason: Protocol Vancomycin HCl 1 gm/ Sodium (Chloride) 250 mls @ 166.667 mls/hr IVPB STAT STA Stop: 03/06/17 12:26 Lactulose (Enulose) 20 gm PO QID [facility] Last Admin: 03/06/17 08:45 Dose: 20 gm Lidocaine (Lidoderm) 1 ea TD DAILY [facility] Last Admin: 03/06/17 08:42 Dose: 1 ea Methylprednisolone (Solu-Medrol) 40 mg IVP Q8 [facility] Last Admin: 03/06/17 08:41 Dose: 40 mg Multivitamins/Minerals (Therapeutic-M Tab) 1 tab PO DAILY [facility] Last Admin: 03/06/17 10:59 Dose: 1 tab Nystatin (Mycostatin Cream) 1 applic TOP TID [facility] Last Admin: 03/06/17 10:17 Dose: 1 applic Nystatin (Nystop Topical Powder) 1 applic TOP QID [facility] Last Admin: 03/06/17 08:43 Dose: 1 applic Pantoprazole Sodium (Protonix Inj) 40 mg IVP DAILY [facility] Last Admin: 03/06/17 08:41 Dose: 40 mg Rifaximin (Xifaxan) 550 mg PO BID [facility] PRN Reason: Protocol Last Admin: 03/06/17 08:41 Dose: 550 mg Sodium Chloride (Sodium Chloride 0.45%) 1,000 ml IV Q12 [facility] Last Admin: 03/06/17 10:17 Dose: 1,000 ml Thiamine HCl (Vitamin B1 Tab) 100 mg PO DAILY [facility] Last Admin: 03/06/17 10:59 Dose: 100 mg - Labs Labs: 03/06/17 05:30 03/06/17 05:30 PT 21.0 Seconds (9.8-13.1) H D 03/04/17 14:30 INR 1.9 (0.9-1.2) H D 03/04/17 14:30 APTT 30.4 Seconds (25.6-37.1) 03/02/17 08:11 - Constitutional Appears: Chronically Ill - Head Exam Head Exam: ATRAUMATIC, NORMAL INSPECTION, NORMOCEPHALIC - Eye Exam Eye Exam: EOMI, Normal appearance, PERRL Pupil Exam: NORMAL ACCOMODATION, PERRL - ENT Exam ENT Exam: Mucous Membranes Moist, Normal Exam - Neck Exam Neck Exam: Full ROM, Normal Inspection. absent: Lymphadenopathy - Respiratory Exam Respiratory Exam: Rales Additional comments: ON THE VENT - Cardiovascular Exam Cardiovascular Exam: REGULAR RHYTHM, +S1, +S2. absent: Murmur - GI/Abdominal Exam GI & Abdominal Exam: Distended, Soft. absent: Tenderness Additional comments: ASCITES - Rectal Exam Rectal Exam: NORMAL INSPECTION - Exam Exam: Circumcision, NORMAL INSPECTION External exam: NORMAL EXTERNAL EXAM Speculum exam: NORMAL SPECULUM EXAM Bimanual exam: NORMAL BIMANUAL EXAM - Extremities Exam Extremities Exam: Full ROM, Normal Capillary Refill, Normal Inspection. absent : Joint Swelling, Pedal Edema - Back Exam Back Exam: NORMAL INSPECTION - Neurological Exam Neurological Exam: CN II-XII Intact - Skin Skin Exam: Dry, Intact, Normal Color, Warm Assessment and Plan - Assessment and Plan (Free Text) Assessment: ACUTE RESP FAILURE ASCITES METABOLIC ENCEPHALOPATHY PNEUMONIA Plan: CONTINUE PRESENT RX WILLPROBABLY NEED ABDOMINAL PARACENTESES
--- NOTE | 2017-03-06 12:21 | CP.PCM.PN ---
Subjective - Date & Time of Evaluation Date of Evaluation: 03/06/17 Time of Evaluation: 08:00 - Subjective Subjective: intubated NAD afeb rising WBC no new cultures Objective - Vital Signs/Intake and Output Vital Signs (last 24 hours): Temp Pulse Resp BP Pulse Ox 97.8 F 88 22 91/49 L 100 03/06/17 12:00 03/06/17 12:00 03/06/17 12:00 03/06/17 12:00 03/06/17 12:00 Intake and Output: 03/06/17 03/06/17 06:59 18:59 Intake Total 2715 685 Output Total 250 Balance 2465 685 - Medications Medications: Current Medications Acetaminophen (Tylenol 325mg Tab) 650 mg PO Q6H PRN PRN Reason: Pain, Mild (1-3) Acetaminophen (Tylenol 325mg Tab) 650 mg PO Q6H PRN PRN Reason: Fever >100.4 F Albuterol/Ipratropium (Duoneb 3 Mg/0.5 Mg (3 Ml) Ud) 3 ml INH RQ4 [facility] Last Admin: 03/06/17 11:06 Dose: 3 ml Folic Acid (Folic Acid) 1 mg PO DAILY [facility] Last Admin: 03/06/17 08:44 Dose: 1 mg Tigecycline 50 mg/ Sodium (Chloride) 100 mls @ 100 mls/hr IVPB Q12H [facility] PRN Reason: Protocol Last Admin: 03/06/17 04:13 Dose: 100 mls/hr Fentanyl 1,000 mcg/ Sodium (Chloride) 100 mls @ 8.79 mls/hr IV .[id number] [facility]; 1 MCG/KG/HR PRN Reason: Protocol Last Admin: 03/06/17 05:26 Dose: 2 mcg/kg/hr, 17.59 mls/hr Vancomycin HCl 1 gm/ Sodium (Chloride) 250 mls @ 166.667 mls/hr IVPB DAILY [facility] PRN Reason: Protocol Vancomycin HCl 1 gm/ Sodium (Chloride) 250 mls @ 166.667 mls/hr IVPB STAT ST[facility] Stop: 03/06/17 12:26 Last Admin: 03/06/17 11:35 Dose: 166.667 mls/hr Lactulose (Enulose) 20 gm PO QID [facility] Last Admin: 03/06/17 08:45 Dose: 20 gm Lidocaine (Lidoderm) 1 ea TD DAILY [facility] Last Admin: 03/06/17 08:42 Dose: 1 ea Methylprednisolone (Solu-Medrol) 40 mg IVP Q8 [facility] Last Admin: 03/06/17 08:41 Dose: 40 mg Multivitamins/Minerals (Therapeutic-M Tab) 1 tab PO DAILY [facility] Last Admin: 03/06/17 10:59 Dose: 1 tab Nystatin (Mycostatin Cream) 1 applic TOP TID [facility] Last Admin: 03/06/17 10:17 Dose: 1 applic Nystatin (Nystop Topical Powder) 1 applic TOP QID [facility] Last Admin: 03/06/17 08:43 Dose: 1 applic Pantoprazole Sodium (Protonix Inj) 40 mg IVP DAILY [facility] Last Admin: 03/06/17 08:41 Dose: 40 mg Rifaximin (Xifaxan) 550 mg PO BID [facility] PRN Reason: Protocol Last Admin: 03/06/17 08:41 Dose: 550 mg Sodium Chloride (Sodium Chloride 0.45%) 1,000 ml IV Q12 [facility] Last Admin: 03/06/17 10:17 Dose: 1,000 ml Thiamine HCl (Vitamin B1 Tab) 100 mg PO DAILY [facility] Last Admin: 03/06/17 10:59 Dose: 100 mg - Labs Labs: 03/06/17 05:30 03/06/17 05:30 PT 21.0 Seconds (9.8-13.1) H D 03/04/17 14:30 INR 1.9 (0.9-1.2) H D 03/04/17 14:30 APTT 30.4 Seconds (25.6-37.1) 03/02/17 08:11 - Constitutional Appears: No Acute Distress, Chronically Ill - Head Exam Head Exam: NORMOCEPHALIC - Eye Exam Eye Exam: absent: Scleral icterus - ENT Exam ENT Exam: Mucous Membranes Dry - Neck Exam Neck Exam: absent: Lymphadenopathy - Respiratory Exam Respiratory Exam: Decreased Breath Sounds - Cardiovascular Exam Cardiovascular Exam: Tachycardia, REGULAR RHYTHM - GI/Abdominal Exam GI & Abdominal Exam: Distended, Soft. absent: Tenderness - Rectal Exam Rectal Exam: Deferred - Exam Exam: NORMAL INSPECTION - Extremities Exam Extremities Exam: absent: Pedal Edema - Back Exam Back Exam: absent: CVA tenderness (L), CVA tenderness (R) - Neurological Exam Neurological Exam: Altered - Psychiatric Exam Psychiatric exam: Depressed - Skin Skin Exam: Dry Assessment and Plan (1) Acute and chronic respiratory failure with hypercapnia Status: Acute (2) Hepatic encephalopathy Status: Acute - Assessment and Plan (Free Text) Assessment: leukemoid reaction- on steroids r/o sepsis ? hx vre and esbl e coli urine treated for this may change antibiotic coverage to zyvox/ azactam after reculturing ?
[2017-03-06] MEDS ORDERED: Sodium Chloride 3% for Inhalation 4 ML VIAL.NEB IH PRN (12:23)
--- NOTE | 2017-03-06 12:40 | RAD ---
HISTORY: intubated COMPARISON: 03/05/2017 FINDINGS: LUNGS: No active pulmonary disease. PLEURA: No significant pleural effusion identified, no pneumothorax apparent. CARDIOVASCULAR: ET tube and NG tube unchanged. OSSEOUS STRUCTURES: Multiple healed right rib fractures. VISUALIZED UPPER ABDOMEN: Normal. OTHER FINDINGS: None. IMPRESSION: No acute infiltrate. Lines and tubes unchanged.
[2017-03-06] MEDS: Fluconazole IV 200mg/100 ml NS 100 ML IVPB SCH (13:04)
[2017-03-06 15:06] LABS: SQUAMOUS EPITHIAL < 1 /hpf (0-5); URINE BACTERIA RARE (<OCC); URINE BILIRUBIN NEGATIVE (NEGATIVE); URINE BLOOD MODERATE (NEGATIVE); URINE CALCIUM OXALATE CRYSTALS OCC /hpf (<OCC); URINE CLARITY CLOUDY (Clear); URINE COLOR AMBER (YELLOW); URINE GLUCOSE (UA) NEG (Normal); URINE HYALINE CAST >20 /hpf (0-2); URINE LEUKOCYTE ESTERASE NEG Leu/uL (Negative); URINE NITRATE NEGATIVE (NEGATIVE); URINE PROTEIN NEGATIVE (NEGATIVE); URINE UROBILINOGEN 0.2-1.0 mg/dL (0.2-1.0)
[2017-03-07] MEDS: Albuterol-Ipratrop 3 mg / 0.5 (3 ml) UD INH SCH ×7 (00:14→23:49)
[2017-03-07] MEDS: MethylPREDNISolone 40 mg Vial IVP SCH ×3 (00:37→17:53)
[2017-03-07] MEDS: fentaNYL 1,000 MCG in Sodium Chloride 0.9% 80 ML IV SCH ×2 (01:36→13:44)
[2017-03-07 04:51] LABS: ABG ALLEN TEST YES; ARTERIAL BLOOD GAS HCO3 22.8 mmol/L (21-28); ARTERIAL BLOOD GAS HEMOGLOBIN 10.6 g/dL (11.7-17.4); ARTERIAL BLOOD GAS O2 CAPACITY 14.4 mL/dL (16-24); ARTERIAL BLOOD GAS O2 CONTENT 14.4 ML/dL (15-23); ARTERIAL BLOOD GAS O2 SAT 99.8 % (95-98); ARTERIAL BLOOD GAS PCO2 44 mm/Hg (35-45); ARTERIAL BLOOD GAS PH 7.33 (7.35-7.45); ARTERIAL BLOOD GAS PO2 103 mm/Hg (80-100); ARTERIAL BLOOD GAS TCO2 24.6 mmol/L (22-28)
[2017-03-07] MEDS: Sodium Chloride 0.45% 500ml 500 ML SOL IV SCH (05:08)
[2017-03-07 05:43] LABS: HEMOGLOBIN 10.1 g/dL (12.0-16.0); MEAN CELL VOLUME 101.4 fl (81.0-99.0); MEAN CORPUSCULAR HGB CONC 32.6 g/dL (33.0-37.0); RBC 3.07 Mil/uL (3.80-5.20); RED CELL DISTRIBUTION WIDTH 17.2 % (11.5-14.5)
[2017-03-07 06:21] LABS: ALB/GLOB RATIO 0.6 (1.0-2.1); ALBUMIN 2.7 g/dL (3.5-5.0); ALT/SGPT 56 U/L (9-52); AST/SGOT 67 U/L (14-36); BLOOD UREA NITROGEN 69 mg/dl (7-17); GFR AFRICAN-AMERICAN > 60; GFR NON-AFRICAN AMERICAN 58
[2017-03-07] MEDS: Multivitamin With Minerals Tab PO SCH (08:50)
[2017-03-07] MEDS: Lidocaine 5% Patch TD SCH (08:51)
[2017-03-07] MEDS: Fluconazole IV 200mg/100 ml NS 100 ML IVPB SCH (08:51)
--- NOTE | 2017-03-07 09:38 | CP.PCM.PN ---
Subjective - Date & Time of Evaluation Date of Evaluation: 03/07/17 Time of Evaluation: 09:38 - Subjective Subjective: STILL ON THE VENT ATTEMPTS TO EXTUBATE HAVE BEEN SO FAR UNSUCCESSFUL RESPONDS TO TOUCH BY OPENING EYES Objective - Vital Signs/Intake and Output Vital Signs (last 24 hours): Temp Pulse Resp BP Pulse Ox 99.3 F 105 H 18 126/73 100 03/07/17 08:00 03/07/17 09:00 03/07/17 09:00 03/07/17 09:00 03/07/17 09:00 Intake and Output: 03/07/17 03/07/17 06:59 18:59 Intake Total 1295 93 Output Total 490 Balance 805 93 - Medications Medications: Current Medications Acetaminophen (Tylenol 325mg Tab) 650 mg PO Q6H PRN PRN Reason: Pain, Mild (1-3) Acetaminophen (Tylenol 325mg Tab) 650 mg PO Q6H PRN PRN Reason: Fever >100.4 F Albuterol/Ipratropium (Duoneb 3 Mg/0.5 Mg (3 Ml) Ud) 3 ml INH RQ4 [facility] Last Admin: 03/07/17 07:27 Dose: 3 ml Folic Acid (Folic Acid) 1 mg PO DAILY [facility] Last Admin: 03/07/17 08:50 Dose: 1 mg Tigecycline 50 mg/ Sodium (Chloride) 100 mls @ 100 mls/hr IVPB Q12H [facility] PRN Reason: Protocol Last Admin: 03/07/17 05:07 Dose: 100 mls/hr Fentanyl 1,000 mcg/ Sodium (Chloride) 100 mls @ 8.79 mls/hr IV .[id number] [facility]; 1 MCG/KG/HR PRN Reason: Protocol Last Admin: 03/07/17 01:36 Dose: 1 mcg/kg/hr, 8.79 mls/hr Vancomycin HCl 1 gm/ Sodium (Chloride) 250 mls @ 166.667 mls/hr IVPB DAILY [facility] PRN Reason: Protocol Fluconazole (Diflucan Iv 200 Mg/100 Ml Ns) 100 mls @ 100 mls/hr IVPB DAILY [facility] Last Admin: 03/07/17 08:51 Dose: 100 mls/hr Lactulose (Enulose) 20 gm PO QID [facility] Last Admin: 03/07/17 08:50 Dose: 20 gm Lidocaine (Lidoderm) 1 ea TD DAILY [facility] Last Admin: 03/07/17 08:51 Dose: 1 ea Methylprednisolone (Solu-Medrol) 40 mg IVP Q8 [facility] Last Admin: 03/07/17 08:50 Dose: 40 mg Multivitamins/Minerals (Therapeutic-M Tab) 1 tab PO DAILY [facility] Last Admin: 03/07/17 08:50 Dose: 1 tab Nystatin (Mycostatin Cream) 1 applic TOP TID [facility] Last Admin: 03/07/17 08:52 Dose: 1 applic Nystatin (Nystop Topical Powder) 1 applic TOP QID [facility] Last Admin: 03/07/17 08:52 Dose: 1 applic Pantoprazole Sodium (Protonix Inj) 40 mg IVP DAILY [facility] Last Admin: 03/07/17 08:50 Dose: 40 mg Rifaximin (Xifaxan) 550 mg PO BID [facility] PRN Reason: Protocol Last Admin: 03/07/17 08:50 Dose: 550 mg Sodium Chloride (Sodium Chloride 0.45%) 1,000 ml IV Q12 [facility] Last Admin: 03/07/17 05:08 Dose: Not Given Thiamine HCl (Vitamin B1 Tab) 100 mg PO DAILY [facility] Last Admin: 03/07/17 08:50 Dose: 100 mg - Labs Labs: 03/07/17 05:00 03/07/17 05:00 PT 21.0 Seconds (9.8-13.1) H D 03/04/17 14:30 INR 1.9 (0.9-1.2) H D 03/04/17 14:30 APTT 30.4 Seconds (25.6-37.1) 03/02/17 08:11 - Constitutional Appears: Chronically Ill - Head Exam Head Exam: ATRAUMATIC, NORMAL INSPECTION, NORMOCEPHALIC - Eye Exam Eye Exam: EOMI, Normal appearance, PERRL Pupil Exam: NORMAL ACCOMODATION, PERRL - ENT Exam ENT Exam: Mucous Membranes Moist, Normal Exam - Neck Exam Neck Exam: Full ROM, Normal Inspection. absent: Lymphadenopathy - Respiratory Exam Additional comments: ON THE VENT - Cardiovascular Exam Cardiovascular Exam: REGULAR RHYTHM, +S1, +S2. absent: Murmur - GI/Abdominal Exam GI & Abdominal Exam: Distended, Soft, Normal Bowel Sounds. absent: Tenderness - Rectal Exam Rectal Exam: NORMAL INSPECTION - Extremities Exam Extremities Exam: Full ROM, Normal Capillary Refill, Normal Inspection. absent : Joint Swelling, Pedal Edema - Back Exam Back Exam: NORMAL INSPECTION - Neurological Exam Neurological Exam: Alert, Awake, CN II-XII Intact, Normal Gait, Oriented x3 - Psychiatric Exam Psychiatric exam: Normal Affect, Normal Mood - Skin Skin Exam: Dry, Intact, Normal Color, Warm Assessment and Plan - Assessment and Plan (Free Text) Assessment: ACUTE RESP FAILURE ASCITES Plan: CONTINUE VENT CARE WILL PROBABLY NEED ABDOMINAL PARACENTESES PRIOR TO EXTUBATION
[2017-03-07] MEDS ORDERED: Iohexol 240 (50 ml) PO ONE (10:32)
--- NOTE | 2017-03-07 11:31 | RAD ---
HISTORY: vented COMPARISON: Chest x-ray performed 03/06/17 TECHNIQUE: Chest, one view. FINDINGS: Examination limited by habitus. Endotracheal tube terminates approximately 3.4 cm above the kyung. Nasogastric tube extends expected location of the stomach. Multiple external wires and leads obscure evaluation of the underlying parenchyma. LUNGS: Pulmonary venous congestion. Please note that chest x-ray has limited sensitivity for the detection of pulmonary masses. PLEURA: No significant pleural effusion identified. No definite pneumothorax . CARDIOVASCULAR: Borderline cardiomegaly. OSSEOUS STRUCTURES: Degenerative changes. Multiple chronic appearing right-sided rib fracture deformities re-identified. VISUALIZED UPPER ABDOMEN: Unremarkable. OTHER FINDINGS: None. IMPRESSION: Endotracheal tube terminates approximately 3.4 cm above the kyung. Nasogastric tube extends expected location of the stomach. Pulmonary venous congestion. Borderline cardiomegaly.
[2017-03-07] MEDS ORDERED: Iohexol 240 (50 ml) ONE (11:44)
--- NOTE | 2017-03-07 11:46 | PN ---
DATE: 03/07/2017 SUBJECTIVE: The patient is seen and examined. Interim events noted. Consults noted and appreciated. Case discussed with public health professor at bedside. The patient remains in intensive care unit, on ventilator, not able to provide informative history or review of system. PHYSICAL EXAMINATION: GENERAL: The patient remains in the intensive care unit, orally intubated, on mechanical ventilation via endotracheal tube, tolerating current setting without any acute respiratory distress. VITAL SIGNS: Stable. HEART: S1 and S2, normal and regular. LUNGS: Good bilateral air exchange. ABDOMEN: Soft, nontender. The patient has ascites, but no sign of acute abdomen. No guarding, no rigidity, no rebound. Bowel sounds are present and normal. EXTREMITIES: No calf swelling or tenderness. No acute ischemia. CENTRAL NERVOUS SYSTEM: Essentially unchanged. DIAGNOSTIC DATA: Available diagnostic data reviewed. Telemetry monitoring does not reveal significant arrhythmias. ASSESSMENT AND PLAN: Overall, the patient's general medical condition is clinically stable, although long-term prognosis remains poor. The patient has . Plan as ordered. Ankur Lopez MD
--- NOTE | 2017-03-07 13:59 | CP.CCUPN ---
CCU Subjective - Physician Review Subjective (Free Text): Patient admitted to ICU for respiratory distress, being treated for sepsis/with intrabdominal source 03/03/17 12:59 CCU Objective - Vital Signs / Intake & Output Vital Signs (Last 4 hours): Vital Signs Temp Pulse Resp BP Pulse Ox 03/07/17 13:00 91 H 18 120/73 100 03/07/17 12:00 98.8 F 93 H 18 129/74 100 03/07/17 11:00 96 H 18 127/80 100 03/07/17 10:00 92 H 18 114/62 100 Intake and Output (Last 8hrs): Intake & Output 03/06/17 03/07/17 03/07/17 22:59 06:59 14:59 Intake Total 995 990 980 Output Total 290 400 Balance 705 590 980 Weight 210 lb 9.6 oz Intake: IV 280 380 240 Intake, Piggyback 200 100 350 Tube Feeding 315 360 240 Free Water Flush 200 150 150 Output: Gastric Amount 90 50 Stomach 90 50 Urine 200 350 Urethral (Gaffney) 200 350 Other: # Bowel Movements 1 1 - Physical Exam Head: Positive for: Atraumatic, Normocephalic. Negative for: Tenderness, Contusion, Swelling, Ecchymosis Pupils: Positive for: PERRL, Sluggish Conjunctiva: Positive for: Icteric. Negative for: Injected Ears: Positive for: Normal Mouth: Positive for: Moist Mucous Membranes Neck: Positive for: Normal Range of Motion, Trachea Midline. Negative for: Meningeal Signs, MIDLINE TENDERNESS, Paraspinal Tenderness, JVD, Lymphadenopathy , Bruit, Other Respiratory/Chest: Positive for: Decreased Breath Sounds, Rales, Rhonchi, Tachypneic. Negative for: Good Air Exchange, Respiratory Distress Cardiovascular: Positive for: Normal S1, S2, Peripheal Pulses Present, Tachycardic. Negative for: Murmurs, Irregular Rhythm Abdomen: Positive for: Distention, Peritoneal Signs. Negative for: Tenderness Back: Negative for: CVA Tenderness Upper Extremity: Positive for: NORMAL PULSES. Negative for: Cyanosis, Edema Lower Extremity: Positive for: Edema, NORMAL PULSES, Capillary Refill < 2 s. Negative for: CALF TENDERNESS Neurological: Positive for: Other (Lethargic) Skin: Positive for: Warm. Negative for: Rashes Psychiatric: Negative for: Alert, Oriented x 3, Normal Insight - Medications Active Medications: Active Medications Generic Name Dose Route Start Last Admin Trade Name Freq PRN Reason Stop Dose Admin Acetaminophen 650 mg 03/02/17 20:39 Tylenol 325mg Tab PO Q6H PRN Pain, Mild (1-3) Acetaminophen 650 mg 03/02/17 20:39 Tylenol 325mg Tab PO Q6H PRN Fever >100.4 F Albuterol/Ipratropium 3 ml 03/03/17 00:00 03/07/17 11:05 Duoneb 3 Mg/0.5 Mg (3 Ml) Ud INH 3 ml RQ4 FOREST Administration Folic Acid 1 mg 03/03/17 09:00 03/07/17 08:50 Folic Acid PO 1 mg DAILY FOREST Administration Tigecycline 50 mg/ Sodium 100 mls @ 100 mls/hr 03/03/17 05:00 03/07/17 05:07 Chloride IVPB 100 mls/hr Q12H FOREST Administration Protocol Fentanyl 1,000 mcg/ Sodium 100 mls @ 8.79 mls/hr 03/04/17 04:33 03/07/17 01: 36 Chloride IV 1 mcg/kg/hr .[id number] FOREST 8.79 mls/hr Protocol Administration 1 MCG/KG/HR Vancomycin HCl 1 gm/ Sodium 250 mls @ 166.667 mls/hr 03/07/17 09:00 03/07/17 09:59 Chloride IVPB 166.667 mls/hr DAILY FOREST Administration Protocol Fluconazole 100 mls @ 100 mls/hr 03/06/17 12:30 03/07/17 08:51 Diflucan Iv 200 Mg/100 Ml Ns IVPB 100 mls/hr DAILY FOREST Administration Lactulose 20 gm 03/02/17 22:00 03/07/17 12:14 Enulose PO 20 gm QID FOREST Administration Lidocaine 1 ea 03/03/17 09:00 03/07/17 08:51 Lidoderm TD 1 ea DAILY FOREST Administration Methylprednisolone 40 mg 03/03/17 01:00 03/07/17 08:50 Solu-Medrol IVP 40 mg Q8 FOREST Administration Multivitamins/Minerals 1 tab 03/03/17 09:00 03/07/17 08:50 Therapeutic-M Tab PO 1 tab DAILY OFREST Administration Nystatin 1 applic 03/03/17 09:00 03/07/17 12:14 Mycostatin Cream TOP 1 applic TID FOREST Administration Nystatin 1 applic 03/02/17 22:00 03/07/17 12:14 Nystop Topical Powder TOP 1 applic QID FOREST Administration Pantoprazole Sodium 40 mg 03/03/17 09:00 03/07/17 08:50 Protonix Inj IVP 40 mg DAILY FOREST Administration Rifaximin 550 mg 03/03/17 09:00 03/07/17 08:50 Xifaxan PO 550 mg BID FOREST Administration Protocol Sodium Chloride 1,000 ml 03/06/17 09:00 03/07/17 05:08 Sodium Chloride 0.45% IV Not Given Q12 FOREST Thiamine HCl 100 mg 03/03/17 09:00 03/07/17 08:50 Vitamin B1 Tab PO 100 mg DAILY FOREST Administration - Patient Studies Lab Studies: Microbiology Studies 03/06/17 16:30 Blood Culture - Preliminary Blood Gram Pos Cocci In Clusters Gram Stain - Preliminary 03/06/17 15:33 Gram Stain - Final Sputum Sputum Culture - Preliminary Gram Negative Reese Lab Studies 03/07/17 03/07/17 03/07/17 Range/Units 05:00 05:00 04:46 WBC 41.0 H* (4.8-10.8) K/uL RBC 3.07 L (3.80-5.20) Mil/uL Hgb 10.1 L (12.0-16.0) g/dL Hct 31.1 L (34.0-47.0) % MCV 101.4 H (81.0-99.0) fl MCH 33.0 H (27.0-31.0) pg MCHC 32.6 L (33.0-37.0) g/dL RDW 17.2 H (11.5-14.5) % Plt Count 107 L (130-400) K/uL pCO2 44 (35-45) mm/Hg pO2 103 H (80-100) mm/Hg HCO3 22.8 (21-28) mmol/L ABG pH 7.33 L (7.35-7.45) ABG Total CO2 24.6 (22-28) mmol/L ABG O2 Saturation 99.8 H (95-98) % ABG O2 Content 14.4 L (15-23) ML/dL ABG Base Excess -2.7 L (-2.0-3.0) mmol/L ABG Hemoglobin 10.6 L (11.7-17.4) g/dL ABG Carboxyhemoglobin 2.2 H (0.5-1.5) % POC ABG HHb (Measured) 0.2 (0.0-5.0) % ABG Methemoglobin 1.9 (0.0-3.0) % ABG O2 Capacity 14.4 L (16-24) mL/dL Dick Test Yes A-a O2 Difference 199.0 mm/Hg Hgb O2 Saturation 95.7 (95.0-98.0) % Vent Mode A/c Mechanical Rate 18 FiO2 50.0 % Tidal Volume 500 PEEP 5 Sodium 135 (132-148) mmol/l Potassium 4.5 (3.6-5.0) MMOL/L Chloride 101 (98-107) mmol/L Carbon Dioxide 21 L (22-30) mmol/L Anion Gap 18 (10-20) BUN 69 H (7-17) mg/dl Creatinine 1.0 (0.7-1.2) mg/dl Est GFR ( Amer) > 60 Est GFR (Non-Af Amer) 58 Random Glucose 134 H (65-105) mg/dL Calcium 9.0 (8.4-10.2) mg/dL Total Bilirubin 2.2 H (0.2-1.3) mg/dl AST 67 H D (14-36) U/L ALT 56 H (9-52) U/L Alkaline Phosphatase 191 H D (38-126) U/L Total Protein 6.9 (6.3-8.2) G/DL Albumin 2.7 L (3.5-5.0) g/dL Globulin 4.3 H (2.2-3.9) gm/dL Albumin/Globulin Ratio 0.6 L (1.0-2.1) Urine Color (YELLOW) Urine Clarity (Clear) Urine pH (5.0-8.0) Ur Specific Jefferson (1.003-1.030) Urine Protein (NEGATIVE) mg/dL Urine Glucose (UA) (Normal) mg/dL Urine Ketones (NEGATIVE) mg/dL Urine Blood (NEGATIVE) Urine Nitrate (NEGATIVE) Urine Bilirubin (NEGATIVE) Urine Urobilinogen (0.2-1.0) mg/dL Ur Leukocyte Esterase (Negative) Rj/uL Urine RBC (Auto) (0-3) /hpf Urine Microscopic WBC (0-5) /hpf Ur Squamous Epith Cells (0-5) /hpf Calcium Oxalate Crystal (<OCC) /hpf Urine Bacteria (<OCC) Hyaline Casts (0-2) /hpf 03/06/17 Range/Units 14:41 WBC (4.8-10.8) K/uL RBC (3.80-5.20) Mil/uL Hgb (12.0-16.0) g/dL Hct (34.0-47.0) % MCV (81.0-99.0) fl MCH (27.0-31.0) pg MCHC (33.0-37.0) g/dL RDW (11.5-14.5) % Plt Count (130-400) K/uL pCO2 (35-45) mm/Hg pO2 (80-100) mm/Hg HCO3 (21-28) mmol/L ABG pH (7.35-7.45) ABG Total CO2 (22-28) mmol/L ABG O2 Saturation (95-98) % ABG O2 Content (15-23) ML/dL ABG Base Excess (-2.0-3.0) mmol/L ABG Hemoglobin (11.7-17.4) g/dL ABG Carboxyhemoglobin (0.5-1.5) % POC ABG HHb (Measured) (0.0-5.0) % ABG Methemoglobin (0.0-3.0) % ABG O2 Capacity (16-24) mL/dL Dick Test A-a O2 Difference mm/Hg Hgb O2 Saturation (95.0-98.0) % Vent Mode Mechanical Rate FiO2 % Tidal Volume PEEP Sodium (132-148) mmol/l Potassium (3.6-5.0) MMOL/L Chloride (98-107) mmol/L Carbon Dioxide (22-30) mmol/L Anion Gap (10-20) BUN (7-17) mg/dl Creatinine (0.7-1.2) mg/dl Est GFR ( Amer) Est GFR (Non-Af Amer) Random Glucose (65-105) mg/dL Calcium (8.4-10.2) mg/dL Total Bilirubin (0.2-1.3) mg/dl AST (14-36) U/L ALT (9-52) U/L Alkaline Phosphatase (38-126) U/L Total Protein (6.3-8.2) G/DL Albumin (3.5-5.0) g/dL Globulin (2.2-3.9) gm/dL Albumin/Globulin Ratio (1.0-2.1) Urine Color Beba (YELLOW) Urine Clarity Cloudy (Clear) Urine pH 5.0 (5.0-8.0) Ur Specific Jefferson 1.021 (1.003-1.030) Urine Protein Negative (NEGATIVE) mg/dL Urine Glucose (UA) Neg (Normal) mg/dL Urine Ketones Negative (NEGATIVE) mg/dL Urine Blood Moderate (NEGATIVE) Urine Nitrate Negative (NEGATIVE) Urine Bilirubin Negative (NEGATIVE) Urine Urobilinogen 0.2-1.0 (0.2-1.0) mg/dL Ur Leukocyte Esterase Neg (Negative) Rj/uL Urine RBC (Auto) 62 H (0-3) /hpf Urine Microscopic WBC 10 H (0-5) /hpf Ur Squamous Epith Cells < 1 (0-5) /hpf Calcium Oxalate Crystal Occ H (<OCC) /hpf Urine Bacteria Rare (<OCC) Hyaline Casts >20 H (0-2) /hpf Laboratory Results - last 24 hr 03/06/17 03/07/17 03/07/17 14:41 04:46 05:00 WBC 41.0 H* RBC 3.07 L Hgb 10.1 L Hct 31.1 L MCV 101.4 H MCH 33.0 H MCHC 32.6 L RDW 17.2 H Plt Count 107 L pCO2 44 pO2 103 H HCO3 22.8 ABG pH 7.33 L ABG Total CO2 24.6 ABG O2 Saturation 99.8 H ABG O2 Content 14.4 L ABG Base Excess -2.7 L ABG Hemoglobin 10.6 L ABG Carboxyhemoglobin 2.2 H POC ABG HHb (Measured) 0.2 ABG Methemoglobin 1.9 ABG O2 Capacity 14.4 L Dick Test Yes A-a O2 Difference 199.0 Hgb O2 Saturation 95.7 Vent Mode A/c Mechanical Rate 18 FiO2 50.0 Tidal Volume 500 PEEP 5 Sodium Potassium Chloride Carbon Dioxide Anion Gap BUN Creatinine Est GFR ( Amer) Est GFR (Non-Af Amer) Random Glucose Calcium Total Bilirubin AST ALT Alkaline Phosphatase Total Protein Albumin Globulin Albumin/Globulin Ratio Urine Color Beba Urine Clarity Cloudy Urine pH 5.0 Ur Specific [place] 1.021 Urine Protein Negative Urine Glucose (UA) Neg Urine Ketones Negative Urine Blood Moderate Urine Nitrate Negative Urine Bilirubin Negative Urine Urobilinogen 0.2-1.0 Ur Leukocyte Esterase Neg Urine RBC (Auto) 62 H Urine Microscopic WBC 10 H Ur Squamous Epith Cells < 1 Calcium Oxalate Crystal Occ H Urine Bacteria Rare Hyaline Casts >20 H 03/07/17 05:00 WBC RBC Hgb Hct MCV MCH MCHC RDW Plt Count pCO2 pO2 HCO3 ABG pH ABG Total CO2 ABG O2 Saturation ABG O2 Content ABG Base Excess ABG Hemoglobin ABG Carboxyhemoglobin POC ABG HHb (Measured) ABG Methemoglobin ABG O2 Capacity Dick Test A-a O2 Difference Hgb O2 Saturation Vent Mode Mechanical Rate FiO2 Tidal Volume PEEP Sodium 135 Potassium 4.5 Chloride 101 Carbon Dioxide 21 L Anion Gap 18 BUN 69 H Creatinine 1.0 Est GFR ( Amer) > 60 Est GFR (Non-Af Amer) 58 Random Glucose 134 H Calcium 9.0 Total Bilirubin 2.2 H AST 67 H D ALT 56 H Alkaline Phosphatase 191 H D Total Protein 6.9 Albumin 2.7 L Globulin 4.3 H Albumin/Globulin Ratio 0.6 L Urine Color Urine Clarity Urine pH Ur Specific Jefferson Urine Protein Urine Glucose (UA) Urine Ketones Urine Blood Urine Nitrate Urine Bilirubin Urine Urobilinogen Ur Leukocyte Esterase Urine RBC (Auto) Urine Microscopic WBC Ur Squamous Epith Cells Calcium Oxalate Crystal Urine Bacteria Hyaline Casts Critical Care Progress Note - Ventilator Checklist Daily Sedation Vacation: Yes Daily Assessment of Readiness to Wean: Yes Daily Spontaneous Breathing Trial: Yes PUD Prophalyxis: Yes DVT Prophylaxis: Yes Oral Care with Chlorhexidine Gluconate {CHG}: Yes Assessment/Plan - Assessment and Plan (Free Text) Plan: -Acute respiratory failure with hypoxemia and Hypercapnia/COPD exacerbation: continue ventilation to keep spo2 >92 and Ph b/w 7.35-7.45, continue IV steroids , peak pressure improved -lobar pneumonia : empirically on ABx, obtain sputum culture, and de-escalate, consider anti-pseudomonal, serial lactic, ID input as WBC is increasing despite abx -Abdominal distension: CT abd/pelvis on 03/03 reveals free air on slice 195, requested surgery input repeat ct abd -keep NPO -repeat CT abd/pelvis Maintain aspiration precautions GI/DVT PPX Prognosis guarded as etiology of free air cc time 40 minutes - Date & Time Date: 03/07/17 Time: 13:59
--- NOTE | 2017-03-07 15:21 | CT ---
PROCEDURE: CT Abdomen and Pelvis without IV contrast. HISTORY: r/o perforation COMPARISON: CT abdomen and pelvis performed 03/03/17 TECHNIQUE: Contiguous axial images of the abdomen and pelvis. Oral contrast was administered. No IV contrast given. Coronal and Sagittal reformats generated and reviewed. Radiation dose: Total exam DLP = 1154.27 mGy-cm. This CT exam was performed using one or more of the following dose reduction techniques: Automated exposure control, adjustment of the mA and/or kV according to patient size, and/or use of iterative reconstruction technique. FINDINGS: There is limited evaluation of the solid organs without the administration of IV contrast. Nasogastric tube extends the stomach. LOWER THORAX: Bilateral lower lobe infiltrates. No visible pleural effusion pneumothorax. Partially imaged cardiomegaly. LIVER: Nodular hepatic contour. Probable recannulated umbilical vein. GALLBLADDER AND BILE DUCTS: Unremarkable unenhanced appearance. PANCREAS: Unremarkable unenhanced appearance. SPLEEN: Unremarkable unenhanced appearance. ADRENALS: Unremarkable unenhanced appearance. KIDNEYS AND URETERS: No hydronephrosis or obstructing renal calculus. BLADDER: Air within the urinary bladder may be secondary to recent instrumentation. Gaffney catheter present. REPRODUCTIVE: Uterus is present. APPENDIX: The appendix appears within normal limits of caliber. BOWEL: The stomach is nondistended. The bowel loops appear within normal limits of caliber without evidence of intestinal obstruction. Probable small bowel wall thickening may be seen in the setting of enteritis. Scattered diverticulosis. PERITONEUM: Moderate abdominal and pelvic ascites. No definite free air is identified at this time. LYMPH NODES: No bulky lymphadenopathy identified. VASCULATURE: No aortic aneurysm. BONES: Degenerative changes of the spine. OTHER FINDINGS: Anasarca. IMPRESSION: Small bowel wall thickening ; correlate clinically for enteritis. Moderate abdominal and pelvic ascites. Anasarca. Bilateral lower lobe infiltrates. Nasogastric tube. Air within the urinary bladder may be secondary to recent instrumentation. Gaffney catheter present. Nodular hepatic contour. Correlate clinically for cirrhosis. Probable recannulated umbilical vein. No definite free air at this time. Additional incidental findings as above. Findings discussed with Dr. Reyes on 03/07/17 at 3:10 p.m.
[2017-03-07] MEDS: Aztreonam 2 GM in Sodium Chloride 0.9% 100 ML IVPB SCH ×2 (15:53→17:54)
[2017-03-07] MEDS: metroNIDAZOLE 500mg/100ml NS 100 ML IVPB SCH ×2 (16:56→22:25)
[2017-03-08] MEDS: Aztreonam 2 GM in Sodium Chloride 0.9% 100 ML IVPB SCH ×3 (00:18→17:13)
[2017-03-08] MEDS: MethylPREDNISolone 40 mg Vial IVP SCH ×3 (00:19→17:14)
[2017-03-08] MEDS: fentaNYL 1,000 MCG in Sodium Chloride 0.9% 80 ML IV SCH ×2 (00:21→13:46)
[2017-03-08 01:20] LABS: URINE BACTERIA RARE (<OCC); URINE BILIRUBIN NEGATIVE (NEGATIVE); URINE CLARITY CLOUDY (Clear); URINE COLOR AMBER (YELLOW); URINE GLUCOSE (UA) NEG (Normal); URINE LEUKOCYTE ESTERASE NEG Leu/uL (Negative); URINE NITRATE NEGATIVE (NEGATIVE); URINE PROTEIN NEGATIVE (NEGATIVE); URINE UROBILINOGEN 0.2-1.0 mg/dL (0.2-1.0)
[2017-03-08 01:38] LABS: URINE BLOOD LARGE (NEGATIVE)
[2017-03-08] MEDS: Albuterol-Ipratrop 3 mg / 0.5 (3 ml) UD INH SCH ×5 (04:55→19:07)
[2017-03-08 05:20] LABS: ABG ALLEN TEST YES; ARTERIAL BLOOD GAS HCO3 22.3 mmol/L (21-28); ARTERIAL BLOOD GAS HEMOGLOBIN 10.4 g/dL (11.7-17.4); ARTERIAL BLOOD GAS O2 CAPACITY 14.4 mL/dL (16-24); ARTERIAL BLOOD GAS O2 CONTENT 14.4 ML/dL (15-23); ARTERIAL BLOOD GAS O2 SAT 100.2 % (95-98); ARTERIAL BLOOD GAS PCO2 36 mm/Hg (35-45); ARTERIAL BLOOD GAS PH 7.38 (7.35-7.45); ARTERIAL BLOOD GAS PO2 115 mm/Hg (80-100); ARTERIAL BLOOD GAS TCO2 22.4 mmol/L (22-28)
--- NOTE | 2017-03-08 08:09 | CP.CCUPN ---
CCU Subjective - Physician Review Events Since Last Encounter (Free Text): 03/08/17 11:21 The patient was Seen and examined by me at the bedside dwith the ICU team, Medical records reviewed and Management issues were discussed and formulated with the house staff. Events reviewed 51 Years old Female with PMHx of Asthma, Bronchitis, COPD, Pneumonia, alcohol abuse, cirrhosis and hepatic encephalopathy Who was brought in by EMS to Emergency department on 02/27 for evaluation of shortness of breath while the patient was at her half-way. She was admitted to the telemetry for management of COPD exacerbation from B/L pneumonia Patient placed on High Flow NC, IV solumedrol, Duoneb And started on IV Levaquin 750 mg daily B/L pneumonia 03/01, PAIN MANAGEMENT NURSE called for acute episode of shortness of breath, likely secondary to COPD ICU evaluation called for lethargy, ABG done with hypercabnia, placed on BIPAP, Fluid discontinue for possible Pulmonary congesion Also had Abd pain and XR showed possible early obstruction, NPO and surgery consulted Repeat ABG 7.11/CO2 of 109/62/37/92.5% Patient transferred to the ICU and semi-emergently orally intubated Patient currently Sedated on fentanyl drip, orally intubated, Awake, comfortable, moves all extremities, following commands Clinically and hemodynamically improved No Vasopressors Afebrile, NSR on the monitor Last 24H I&O 3400/1020 Labs revealed persistant Leucocytosis of 41K, Pt on IV antibiotics with IV Vanco, Diflucan, Flagyl, Tygacil and Azactam Stable renal function BUN/Cr 69/1.0, Na up to 135 ABG 7.38/36/115/22/100% FIO2 of 50% CXR shows minimal improvement of the B/L airspace disease Peak and Plateau airway pressures NL, Pt on IV Methylprednisolone to 40 mg IVPB Q8H Respiratory secretions minimal This morning, He was taken off sedation and planning for vent weaning protocol CCU Objective - Vital Signs / Intake & Output Vital Signs (Last 4 hours): Vital Signs Temp Pulse Resp BP Pulse Ox 03/08/17 07:00 80 16 117/60 100 03/08/17 06:00 78 16 111/52 L 100 03/08/17 05:00 97.3 F L 81 22 126/73 100 Intake and Output (Last 8hrs): Intake & Output 03/07/17 03/08/17 03/08/17 22:59 06:59 14:59 Intake Total 805 720 Output Total 520 500 Balance 285 220 Weight 211 lb Intake: IV 120 100 Intake, Piggyback 200 300 Tube Feeding 285 320 Free Water Flush 200 Output: Gastric Amount 70 Stomach 70 Urine 450 500 Urethral (Gaffney) 450 500 Other: # Bowel Movements 1 1 - Physical Exam Head: Positive for: Atraumatic, Normocephalic. Negative for: Tenderness, Contusion, Swelling, Ecchymosis Pupils: Positive for: PERRL, Sluggish Conjunctiva: Positive for: Icteric. Negative for: Injected Ears: Positive for: Normal Mouth: Positive for: Moist Mucous Membranes Neck: Positive for: Normal Range of Motion, Trachea Midline. Negative for: Meningeal Signs, MIDLINE TENDERNESS, Paraspinal Tenderness, JVD, Lymphadenopathy , Bruit, Other Respiratory/Chest: Positive for: Decreased Breath Sounds, Rales, Rhonchi, Tachypneic. Negative for: Good Air Exchange, Respiratory Distress Cardiovascular: Positive for: Normal S1, S2, Peripheal Pulses Present, Tachycardic. Negative for: Murmurs, Irregular Rhythm Abdomen: Positive for: Distention, Peritoneal Signs. Negative for: Tenderness Back: Negative for: CVA Tenderness Upper Extremity: Positive for: NORMAL PULSES. Negative for: Cyanosis, Edema Lower Extremity: Positive for: Edema, NORMAL PULSES, Capillary Refill < 2 s. Negative for: CALF TENDERNESS Neurological: Positive for: Other (Lethargic) Skin: Positive for: Warm. Negative for: Rashes Psychiatric: Negative for: Alert, Oriented x 3, Normal Insight - Medications Active Medications: Active Medications Generic Name Dose Route Start Last Admin Trade Name Freq PRN Reason Stop Dose Admin Acetaminophen 650 mg 03/02/17 20:39 Tylenol 325mg Tab PO Q6H PRN Pain, Mild (1-3) Acetaminophen 650 mg 03/02/17 20:39 Tylenol 325mg Tab PO Q6H PRN Fever >100.4 F Albuterol/Ipratropium 3 ml 03/03/17 00:00 03/08/17 04:55 Duoneb 3 Mg/0.5 Mg (3 Ml) Ud INH 3 ml RQ4 [facility] Administration Folic Acid 1 mg 03/03/17 09:00 03/07/17 08:50 Folic Acid PO 1 mg DAILY [facility] Administration Tigecycline 50 mg/ Sodium 100 mls @ 100 mls/hr 03/03/17 05:00 03/08/17 04:00 Chloride IVPB 100 mls/hr Q12H [facility] Administration Protocol Fentanyl 1,000 mcg/ Sodium 100 mls @ 8.79 mls/hr 03/04/17 04:33 03/08/17 00: 21 Chloride IV 1 mcg/kg/hr .[id number] [facility] 8.79 mls/hr Protocol Administration 1 MCG/KG/HR Vancomycin HCl 1 gm/ Sodium 250 mls @ 166.667 mls/hr 03/07/17 09:00 03/07/17 09:59 Chloride IVPB 166.667 mls/hr DAILY [facility] Administration Protocol Fluconazole 100 mls @ 100 mls/hr 03/06/17 12:30 03/07/17 08:51 Diflucan Iv 200 Mg/100 Ml Ns IVPB 100 mls/hr DAILY [facility] Administration Aztreonam 2 gm/ Sodium 100 mls @ 100 mls/hr 03/07/17 15:00 03/08/17 00:18 Chloride IVPB 100 mls/hr Q8 [facility] Administration Protocol Metronidazole 100 mls @ 100 mls/hr 03/07/17 15:00 03/07/17 22:25 Flagyl 500mg/100ml Ns IVPB 100 mls/hr Q8H [facility] Administration Protocol Lactulose 20 gm 03/02/17 22:00 03/07/17 22:27 Enulose PO 20 gm QID [facility] Administration Lidocaine 1 ea 03/03/17 09:00 03/07/17 08:51 Lidoderm TD 1 ea DAILY [facility] Administration Methylprednisolone 40 mg 03/03/17 01:00 03/08/17 00:19 Solu-Medrol IVP 40 mg Q8 [facility] Administration Multivitamins/Minerals 1 tab 03/03/17 09:00 03/07/17 08:50 Therapeutic-M Tab PO 1 tab DAILY [facility] Administration Nystatin 1 applic 03/03/17 09:00 03/07/17 17:53 Mycostatin Cream TOP 1 applic TID [facility] Administration Nystatin 1 applic 03/02/17 22:00 03/07/17 22:25 Nystop Topical Powder TOP 1 applic QID [facility] Administration Pantoprazole Sodium 40 mg 03/03/17 09:00 03/07/17 08:50 Protonix Inj IVP 40 mg DAILY [facility] Administration Rifaximin 550 mg 03/03/17 09:00 03/07/17 17:53 Xifaxan PO 550 mg BID [facility] Administration Protocol Thiamine HCl 100 mg 03/03/17 09:00 03/07/17 08:50 Vitamin B1 Tab PO 100 mg DAILY [facility] Administration - Patient Studies Lab Studies: Microbiology Studies 03/06/17 16:30 S.aureus & Coag-Neg Staph PNA FISH - Final Blood Blood Culture - Preliminary Gram Positive Cocci Gram Stain - Preliminary 03/06/17 15:33 Gram Stain - Final Sputum Sputum Culture - Preliminary Gram Negative Reese Lab Studies 03/08/17 03/07/17 03/07/17 Range/Units 04:50 18:37 13:54 pCO2 36 (35-45) mm/Hg pO2 115 H (80-100) mm/Hg HCO3 22.3 (21-28) mmol/L ABG pH 7.38 (7.35-7.45) ABG Total CO2 22.4 (22-28) mmol/L ABG O2 Saturation 100.2 H (95-98) % ABG O2 Content 14.4 L (15-23) ML/dL ABG Base Excess -3.4 L (-2.0-3.0) mmol/L ABG Hemoglobin 10.4 L (11.7-17.4) g/dL ABG Carboxyhemoglobin 1.8 H (0.5-1.5) % POC ABG HHb (Measured) -0.2 L (0.0-5.0) % ABG Methemoglobin 1.3 (0.0-3.0) % ABG O2 Capacity 14.4 L (16-24) mL/dL Dick Test Yes A-a O2 Difference 197.0 mm/Hg Hgb O2 Saturation 97.0 (95.0-98.0) % Vent Mode A/c Mechanical Rate 22 FiO2 50.0 % Tidal Volume 500 PEEP 5 Lactic Acid 2.1 (0.7-2.1) MMOL/L Procalcitonin (0.19-0.49) NG/ML Urine Color (YELLOW) Urine Clarity (Clear) Urine pH (5.0-8.0) Ur Specific [place] (1.003-1.030) Urine Protein (NEGATIVE) mg/dL Urine Glucose (UA) (Normal) mg/dL Urine Ketones (NEGATIVE) mg/dL Urine Blood (NEGATIVE) Urine Nitrate (NEGATIVE) Urine Bilirubin (NEGATIVE) Urine Urobilinogen (0.2-1.0) mg/dL Ur Leukocyte Esterase (Negative) Rj/uL Urine RBC (Auto) (0-3) /hpf Urine Microscopic WBC (0-5) /hpf Urine Bacteria (<OCC) Hyaline Casts (0-2) /hpf C. difficile Ag & Toxin Positive antigen (NEGATIVE) 03/07/17 03/07/17 Range/Units 10:31 05:00 pCO2 (35-45) mm/Hg pO2 (80-100) mm/Hg HCO3 (21-28) mmol/L ABG pH (7.35-7.45) ABG Total CO2 (22-28) mmol/L ABG O2 Saturation (95-98) % ABG O2 Content (15-23) ML/dL ABG Base Excess (-2.0-3.0) mmol/L ABG Hemoglobin (11.7-17.4) g/dL ABG Carboxyhemoglobin (0.5-1.5) % POC ABG HHb (Measured) (0.0-5.0) % ABG Methemoglobin (0.0-3.0) % ABG O2 Capacity (16-24) mL/dL Dick Test A-a O2 Difference mm/Hg Hgb O2 Saturation (95.0-98.0) % Vent Mode Mechanical Rate FiO2 % Tidal Volume PEEP Lactic Acid (0.7-2.1) MMOL/L Procalcitonin 1.50 H (0.19-0.49) NG/ML Urine Color Beba (YELLOW) Urine Clarity Cloudy (Clear) Urine pH 6.0 (5.0-8.0) Ur Specific [place] 1.018 (1.003-1.030) Urine Protein Negative (NEGATIVE) mg/dL Urine Glucose (UA) Neg (Normal) mg/dL Urine Ketones Negative (NEGATIVE) mg/dL Urine Blood Large (NEGATIVE) Urine Nitrate Negative (NEGATIVE) Urine Bilirubin Negative (NEGATIVE) Urine Urobilinogen 0.2-1.0 (0.2-1.0) mg/dL Ur Leukocyte Esterase Neg (Negative) Rj/uL Urine RBC (Auto) 461 H (0-3) /hpf Urine Microscopic WBC 26 H (0-5) /hpf Urine Bacteria Rare (<OCC) Hyaline Casts 3-5 H (0-2) /hpf C. difficile Ag & Toxin (NEGATIVE) Laboratory Results - last 24 hr 03/07/17 03/07/17 03/07/17 05:00 10:31 13:54 pCO2 pO2 HCO3 ABG pH ABG Total CO2 ABG O2 Saturation ABG O2 Content ABG Base Excess ABG Hemoglobin ABG Carboxyhemoglobin POC ABG HHb (Measured) ABG Methemoglobin ABG O2 Capacity Dick Test A-a O2 Difference Hgb O2 Saturation Vent Mode Mechanical Rate FiO2 Tidal Volume PEEP Lactic Acid Procalcitonin 1.50 H Urine Color Beba Urine Clarity Cloudy Urine pH 6.0 Ur Specific [place] 1.018 Urine Protein Negative Urine Glucose (UA) Neg Urine Ketones Negative Urine Blood Large Urine Nitrate Negative Urine Bilirubin Negative Urine Urobilinogen 0.2-1.0 Ur Leukocyte Esterase Neg Urine RBC (Auto) 461 H Urine Microscopic WBC 26 H Urine Bacteria Rare Hyaline Casts 3-5 H C. difficile Ag & Toxin Positive antigen 03/07/17 03/08/17 18:37 04:50 pCO2 36 pO2 115 H HCO3 22.3 ABG pH 7.38 ABG Total CO2 22.4 ABG O2 Saturation 100.2 H ABG O2 Content 14.4 L ABG Base Excess -3.4 L ABG Hemoglobin 10.4 L ABG Carboxyhemoglobin 1.8 H POC ABG HHb (Measured) -0.2 L ABG Methemoglobin 1.3 ABG O2 Capacity 14.4 L Dick Test Yes A-a O2 Difference 197.0 Hgb O2 Saturation 97.0 Vent Mode A/c Mechanical Rate 22 FiO2 50.0 Tidal Volume 500 PEEP 5 Lactic Acid 2.1 Procalcitonin Urine Color Urine Clarity Urine pH Ur Specific [place] Urine Protein Urine Glucose (UA) Urine Ketones Urine Blood Urine Nitrate Urine Bilirubin Urine Urobilinogen Ur Leukocyte Esterase Urine RBC (Auto) Urine Microscopic WBC Urine Bacteria Hyaline Casts C. difficile Ag & Toxin Assessment/Plan (1) UTI (urinary tract infection) Current Visit: Yes Status: Acute (2) COPD exacerbation Current Visit: Yes Status: Acute (3) Acute and chronic respiratory failure with hypercapnia Current Visit: No Status: Acute (4) Alcohol abuse Current Visit: No Status: Acute (5) Bilateral pneumonia Current Visit: No Status: Acute (6) Hepatic encephalopathy Current Visit: No Status: Acute (7) Severe sepsis Current Visit: No Status: Acute - Assessment and Plan (Free Text) Assessment: Acute respiratory failure with hypoxemia and Hypercapnia in the setting of Bilateral pneumonia , severe Respiratory muscle with underlying Obstructive lung disease, with limited pulmonary reserve and hypoventilation from obesity. COPD exacerbations Bilateral pneumonia Hepatic encephalopathy Abdominal pain R/O SBObstruction Continue with ICU care for hemodynamic and Respiratory monitoring Maintain MAP 65-75 Wean off FIO2 This morning, He was taken off sedation and planning for vent weaning protocol Continue IV antibiotics with IV Vanco, Diflucan, Flagyl, Tygacil and Azactam Continue IV Methylprednisolone to 40 mg IVPB Q8H Continue Lactulose and Rifaximine Continue nebulizer treatment Continue diuretics as needed Strict I&O, negative fluid balance Aggressive pulmonary toilet, chest PT, suctioning Send tracheal aspirate for gram stain and C/S Maintain aspiration precautions NG Tube Surgery and ID consult appreciated GI/DVT PPX: PPI, Lovenox
[2017-03-08] MEDS: Multivitamin With Minerals Tab PO SCH (08:35)
[2017-03-08] MEDS: Lidocaine 5% Patch TD SCH (08:37)
[2017-03-08] MEDS: metroNIDAZOLE 500mg/100ml NS 100 ML IVPB SCH ×3 (08:55→22:09)
--- NOTE | 2017-03-08 09:07 | CP.PCM.PN ---
Subjective - Date & Time of Evaluation Date of Evaluation: 03/08/17 Time of Evaluation: 09:07 - Subjective Subjective: STILL INTUBATED AND BEING VENTILATED AWAKE AND RESPONSIVE Objective - Vital Signs/Intake and Output Vital Signs (last 24 hours): Temp Pulse Resp BP Pulse Ox 98.5 F 83 16 106/60 100 03/08/17 08:00 03/08/17 08:00 03/08/17 08:00 03/08/17 08:00 03/08/17 08:00 Intake and Output: 03/08/17 03/08/17 06:59 18:59 Intake Total 913 Output Total 570 Balance 343 - Medications Medications: Current Medications Acetaminophen (Tylenol 325mg Tab) 650 mg PO Q6H PRN PRN Reason: Pain, Mild (1-3) Acetaminophen (Tylenol 325mg Tab) 650 mg PO Q6H PRN PRN Reason: Fever >100.4 F Albuterol/Ipratropium (Duoneb 3 Mg/0.5 Mg (3 Ml) Ud) 3 ml INH RQ4 [facility] Last Admin: 03/08/17 08:22 Dose: 3 ml Folic Acid (Folic Acid) 1 mg PO DAILY [facility] Last Admin: 03/08/17 08:36 Dose: 1 mg Tigecycline 50 mg/ Sodium (Chloride) 100 mls @ 100 mls/hr IVPB Q12H [facility] PRN Reason: Protocol Last Admin: 03/08/17 04:00 Dose: 100 mls/hr Fentanyl 1,000 mcg/ Sodium (Chloride) 100 mls @ 8.79 mls/hr IV .[id number] [facility]; 1 MCG/KG/HR PRN Reason: Protocol Last Admin: 03/08/17 00:21 Dose: 1 mcg/kg/hr, 8.79 mls/hr Vancomycin HCl 1 gm/ Sodium (Chloride) 250 mls @ 166.667 mls/hr IVPB DAILY [facility] PRN Reason: Protocol Last Admin: 03/07/17 09:59 Dose: 166.667 mls/hr Fluconazole (Diflucan Iv 200 Mg/100 Ml Ns) 100 mls @ 100 mls/hr IVPB DAILY [facility] Last Admin: 03/07/17 08:51 Dose: 100 mls/hr Aztreonam 2 gm/ Sodium (Chloride) 100 mls @ 100 mls/hr IVPB Q8 [facility] PRN Reason: Protocol Last Admin: 03/08/17 08:29 Dose: 100 mls/hr Metronidazole (Flagyl 500mg/100ml Ns) 100 mls @ 100 mls/hr IVPB Q8H [facility] PRN Reason: Protocol Last Admin: 03/08/17 08:55 Dose: 100 mls/hr Lactulose (Enulose) 20 gm PO QID [facility] Last Admin: 03/07/17 22:27 Dose: 20 gm Lidocaine (Lidoderm) 1 ea TD DAILY [facility] Last Admin: 03/08/17 08:37 Dose: 1 ea Methylprednisolone (Solu-Medrol) 40 mg IVP Q8 [facility] Last Admin: 03/08/17 08:35 Dose: 40 mg Multivitamins/Minerals (Therapeutic-M Tab) 1 tab PO DAILY [facility] Last Admin: 03/08/17 08:35 Dose: 1 tab Nystatin (Mycostatin Cream) 1 applic TOP TID [facility] Last Admin: 03/08/17 08:37 Dose: 1 applic Nystatin (Nystop Topical Powder) 1 applic TOP QID [facility] Last Admin: 03/08/17 08:37 Dose: 1 applic Pantoprazole Sodium (Protonix Inj) 40 mg IVP DAILY [facility] Last Admin: 03/08/17 08:35 Dose: 40 mg Rifaximin (Xifaxan) 550 mg PO BID [facility] PRN Reason: Protocol Last Admin: 03/08/17 08:35 Dose: 550 mg Thiamine HCl (Vitamin B1 Tab) 100 mg PO DAILY [facility] Last Admin: 03/08/17 08:36 Dose: 100 mg - Labs Labs: 03/07/17 05:00 03/07/17 05:00 PT 21.0 Seconds (9.8-13.1) H D 03/04/17 14:30 INR 1.9 (0.9-1.2) H D 03/04/17 14:30 APTT 30.4 Seconds (25.6-37.1) 03/02/17 08:11 - Constitutional Appears: Chronically Ill - Head Exam Head Exam: ATRAUMATIC, NORMAL INSPECTION, NORMOCEPHALIC - Eye Exam Eye Exam: EOMI, Normal appearance, PERRL Pupil Exam: NORMAL ACCOMODATION, PERRL - ENT Exam ENT Exam: Mucous Membranes Moist, Normal Exam - Neck Exam Neck Exam: Full ROM, Normal Inspection. absent: Lymphadenopathy - Respiratory Exam Respiratory Exam: Decreased Breath Sounds, Rales Additional comments: ON THE VENT - Cardiovascular Exam Cardiovascular Exam: REGULAR RHYTHM, +S1, +S2. absent: Murmur - GI/Abdominal Exam GI & Abdominal Exam: Distended, Normal Bowel Sounds. absent: Tenderness - Rectal Exam Rectal Exam: NORMAL INSPECTION - Extremities Exam Extremities Exam: Full ROM, Normal Capillary Refill, Normal Inspection. absent : Joint Swelling, Pedal Edema - Back Exam Back Exam: NORMAL INSPECTION - Neurological Exam Neurological Exam: Alert, Awake Assessment and Plan - Assessment and Plan (Free Text) Assessment: ACUTE RESP FAILURE ASCITES Plan: WILL PROBABLY NEED ABDOMINAL PARACENTESES PRIOR TO EXTUBATION
[2017-03-08] MEDS: Fluconazole IV 200mg/100 ml NS 100 ML IVPB SCH (09:16)
--- NOTE | 2017-03-08 09:56 | RAD ---
HISTORY: vented COMPARISON: 03/07/2017 FINDINGS: LUNGS: No definite infiltrate. Linear scar/ atelectasis mid right and left lung. Left lung new since prior. Minimal subsegmental linear atelectasis noted at medial right lung base. PLEURA: No significant pleural effusion identified, no pneumothorax apparent. CARDIOVASCULAR: Normal heart size. ET tube and NG tube unchanged. OSSEOUS STRUCTURES: Multiple healed right rib fractures. VISUALIZED UPPER ABDOMEN: Normal. OTHER FINDINGS: None. IMPRESSION: No acute infiltrate.
--- NOTE | 2017-03-08 13:29 | CP.PCM.PN ---
Subjective - Date & Time of Evaluation Date of Evaluation: 03/08/17 Time of Evaluation: 08:00 - Subjective Subjective: intubated recent cultures noted e coli in sputum staph in blood Objective - Vital Signs/Intake and Output Vital Signs (last 24 hours): Temp Pulse Resp BP Pulse Ox 98.5 F 93 H 22 130/60 100 03/08/17 12:00 03/08/17 13:00 03/08/17 13:00 03/08/17 13:00 03/08/17 13:00 Intake and Output: 03/08/17 03/08/17 06:59 18:59 Intake Total 913 720 Output Total 570 Balance 343 720 - Medications Medications: Current Medications Acetaminophen (Tylenol 325mg Tab) 650 mg PO Q6H PRN PRN Reason: Pain, Mild (1-3) Acetaminophen (Tylenol 325mg Tab) 650 mg PO Q6H PRN PRN Reason: Fever >100.4 F Albuterol/Ipratropium (Duoneb 3 Mg/0.5 Mg (3 Ml) Ud) 3 ml INH RQ4 [facility] Last Admin: 03/08/17 11:41 Dose: 3 ml Folic Acid (Folic Acid) 1 mg PO DAILY [facility] Last Admin: 03/08/17 08:36 Dose: 1 mg Tigecycline 50 mg/ Sodium (Chloride) 100 mls @ 100 mls/hr IVPB Q12H [facility] PRN Reason: Protocol Last Admin: 03/08/17 04:00 Dose: 100 mls/hr Fentanyl 1,000 mcg/ Sodium (Chloride) 100 mls @ 8.79 mls/hr IV .[id number] [facility]; 1 MCG/KG/HR PRN Reason: Protocol Last Titration: 03/08/17 09:29 Dose: 0.5 mcg/kg/hr, 4.4 mls/hr Vancomycin HCl 1 gm/ Sodium (Chloride) 250 mls @ 166.667 mls/hr IVPB DAILY [facility] PRN Reason: Protocol Last Admin: 03/08/17 09:27 Dose: 166.667 mls/hr Fluconazole (Diflucan Iv 200 Mg/100 Ml Ns) 100 mls @ 100 mls/hr IVPB DAILY [facility] Last Admin: 03/08/17 09:16 Dose: 100 mls/hr Aztreonam 2 gm/ Sodium (Chloride) 100 mls @ 100 mls/hr IVPB Q8 [facility] PRN Reason: Protocol Last Admin: 03/08/17 08:29 Dose: 100 mls/hr Metronidazole (Flagyl 500mg/100ml Ns) 100 mls @ 100 mls/hr IVPB Q8H [facility] PRN Reason: Protocol Last Admin: 03/08/17 08:55 Dose: 100 mls/hr Lactulose (Enulose) 20 gm PO QID [facility] Last Admin: 03/08/17 12:07 Dose: Not Given Lidocaine (Lidoderm) 1 ea TD DAILY [facility] Last Admin: 03/08/17 08:37 Dose: 1 ea Methylprednisolone (Solu-Medrol) 40 mg IVP Q8 [facility] Last Admin: 03/08/17 08:35 Dose: 40 mg Multivitamins/Minerals (Therapeutic-M Tab) 1 tab PO DAILY [facility] Last Admin: 03/08/17 08:35 Dose: 1 tab Nystatin (Mycostatin Cream) 1 applic TOP TID [facility] Last Admin: 03/08/17 12:08 Dose: 1 applic Nystatin (Nystop Topical Powder) 1 applic TOP QID [facility] Last Admin: 03/08/17 12:08 Dose: 1 applic Pantoprazole Sodium (Protonix Inj) 40 mg IVP DAILY [facility] Last Admin: 03/08/17 08:35 Dose: 40 mg Rifaximin (Xifaxan) 550 mg PO BID [facility] PRN Reason: Protocol Last Admin: 03/08/17 08:35 Dose: 550 mg Thiamine HCl (Vitamin B1 Tab) 100 mg PO DAILY [facility] Last Admin: 03/08/17 08:36 Dose: 100 mg - Labs Labs: 03/07/17 05:00 03/07/17 05:00 PT 21.0 Seconds (9.8-13.1) H D 03/04/17 14:30 INR 1.9 (0.9-1.2) H D 03/04/17 14:30 APTT 30.4 Seconds (25.6-37.1) 03/02/17 08:11 - Constitutional Appears: Toxic, Confused, Chronically Ill - Head Exam Head Exam: NORMOCEPHALIC - Eye Exam Eye Exam: absent: Scleral icterus - ENT Exam ENT Exam: Mucous Membranes Dry - Neck Exam Neck Exam: absent: Lymphadenopathy - Respiratory Exam Respiratory Exam: Decreased Breath Sounds, Clear to Ausculation Bilateral - Cardiovascular Exam Cardiovascular Exam: REGULAR RHYTHM - GI/Abdominal Exam GI & Abdominal Exam: Distended - Rectal Exam Rectal Exam: Deferred - Exam Exam: NORMAL INSPECTION - Extremities Exam Extremities Exam: absent: Pedal Edema - Back Exam Back Exam: absent: CVA tenderness (L), CVA tenderness (R) - Neurological Exam Neurological Exam: Altered - Skin Skin Exam: Dry Assessment and Plan (1) Acute and chronic respiratory failure with hypercapnia Status: Acute (2) Hepatic encephalopathy Status: Acute - Assessment and Plan (Free Text) Plan: cont iv rx change all lines ct chest/ abd / pelvis when stable
--- NOTE | 2017-03-08 13:38 | CP.PCM.PCO ---
Physician Communication Note - Physician Communication Note Physician Communication Note: switched to zyvox/flagyl/aztreonam
--- NOTE | 2017-03-08 15:21 | CP.PCM.PN ---
Subjective - Date & Time of Evaluation Date of Evaluation: 03/08/17 Time of Evaluation: 11:00 - Subjective Subjective: Patient seen and examined at bedside, remains intubated, alert and restless, follows few commands. Objective - Vital Signs/Intake and Output Vital Signs (last 24 hours): Temp Pulse Resp BP Pulse Ox 98.5 F 78 16 103/54 L 100 03/08/17 12:00 03/08/17 15:00 03/08/17 15:00 03/08/17 15:00 03/08/17 15:00 Intake and Output: 03/08/17 03/08/17 06:59 18:59 Intake Total 913 810 Output Total 570 Balance 343 810 - Medications Medications: Current Medications Acetaminophen (Tylenol 325mg Tab) 650 mg PO Q6H PRN PRN Reason: Pain, Mild (1-3) Acetaminophen (Tylenol 325mg Tab) 650 mg PO Q6H PRN PRN Reason: Fever >100.4 F Albuterol/Ipratropium (Duoneb 3 Mg/0.5 Mg (3 Ml) Ud) 3 ml INH RQ4 [facility] Last Admin: 03/08/17 11:41 Dose: 3 ml Folic Acid (Folic Acid) 1 mg PO DAILY [facility] Last Admin: 03/08/17 08:36 Dose: 1 mg Fentanyl 1,000 mcg/ Sodium (Chloride) 100 mls @ 8.79 mls/hr IV .[id number] [facility]; 1 MCG/KG/HR PRN Reason: Protocol Last Admin: 03/08/17 13:46 Dose: 0.5 mcg/kg/hr, 4.4 mls/hr Fluconazole (Diflucan Iv 200 Mg/100 Ml Ns) 100 mls @ 100 mls/hr IVPB DAILY [facility] Last Admin: 03/08/17 09:16 Dose: 100 mls/hr Aztreonam 2 gm/ Sodium (Chloride) 100 mls @ 100 mls/hr IVPB Q8 [facility] PRN Reason: Protocol Last Admin: 03/08/17 08:29 Dose: 100 mls/hr Metronidazole (Flagyl 500mg/100ml Ns) 100 mls @ 100 mls/hr IVPB Q8H [facility] PRN Reason: Protocol Last Admin: 03/08/17 14:58 Dose: 100 mls/hr Linezolid (Zyvox 600mg/300ml D5w) 600 mg in 300 mls @ 300 mls/hr IVPB Q12 [facility] PRN Reason: Protocol Lactulose (Enulose) 20 gm PO QID [facility] Last Admin: 03/08/17 12:07 Dose: Not Given Lidocaine (Lidoderm) 1 ea TD DAILY [facility] Last Admin: 03/08/17 08:37 Dose: 1 ea Methylprednisolone (Solu-Medrol) 40 mg IVP Q8 [facility] Last Admin: 03/08/17 08:35 Dose: 40 mg Multivitamins/Minerals (Therapeutic-M Tab) 1 tab PO DAILY [facility] Last Admin: 03/08/17 08:35 Dose: 1 tab Nystatin (Mycostatin Cream) 1 applic TOP TID [facility] Last Admin: 03/08/17 12:08 Dose: 1 applic Nystatin (Nystop Topical Powder) 1 applic TOP QID [facility] Last Admin: 03/08/17 12:08 Dose: 1 applic Pantoprazole Sodium (Protonix Inj) 40 mg IVP DAILY [facility] Last Admin: 03/08/17 08:35 Dose: 40 mg Rifaximin (Xifaxan) 550 mg PO BID [facility] PRN Reason: Protocol Last Admin: 03/08/17 08:35 Dose: 550 mg Thiamine HCl (Vitamin B1 Tab) 100 mg PO DAILY [facility] Last Admin: 03/08/17 08:36 Dose: 100 mg - Labs Labs: 03/07/17 05:00 03/07/17 05:00 PT 21.0 Seconds (9.8-13.1) H D 03/04/17 14:30 INR 1.9 (0.9-1.2) H D 03/04/17 14:30 APTT 30.4 Seconds (25.6-37.1) 03/02/17 08:11 - Constitutional Appears: Chronically Ill - Eye Exam Eye Exam: Scleral icterus - ENT Exam ENT Exam: Mucous Membranes Moist - Respiratory Exam Respiratory Exam: Decreased Breath Sounds (bilaterally), Rales, Rhonchi Additional comments: intubated - Cardiovascular Exam Cardiovascular Exam: Tachycardia, REGULAR RHYTHM, +S1, +S2 - GI/Abdominal Exam GI & Abdominal Exam: Distended, Normal Bowel Sounds - Extremities Exam Extremities Exam: Pedal Edema - Neurological Exam Neurological Exam: Alert - Skin Skin Exam: Dry, Warm Assessment and Plan - Assessment and Plan (Free Text) Assessment: Assessment/Plan 1. Acute respiratory failure -secondary to hepatic encephalopathy and respiratory distress -admitted ICU -Ventilator weaning protocol initiated today -Pulmonary consult appreciated: continue duonebs, steroids, consider abdominal paracentesis prior to extubation 2. Bacteremia -03/06/17: Blood culture positive for gram positive cocci -patient going for PICC today -ID consult appreciated: antibiotics switched to Zyvox/Flagyl/Aztreonam ; change all line, send pt for CT chest/abd/pelvis once stable 3. Hepatic encephalopathy -GI Consult appreciated: continue with lactulose, rifaximin; -amonium levels normal 4. UTI -VRE, Ecoli resistant to levaquin -ID consult appreciated: antibiotics adjusted as above -03/06/17: repeat urine cx no growth 5. COPD exacerbation -duoneb -solumedrol -Substance Abuse Specialist consult appreciated: management as above 6. Bilateral pneumonia -03/06/17: sputum culture: E. Coli -03/08/17: repeat CXR: no definite or acute infiltrate -03/07/17: bilateral lower lobe infiltrates -s/p levaquin, discontinued Tygacil -ID management as above 7. Abdominal pain -XR Abd possible illeus vs small bowel obstruction -NG tube in place -03/07/17: CT abd and pelvis w/contrast : positive for moderate abdominal and pelvic ascites; no evidence of bowel obstruction -Surgery consult appreciated: No surgical intervention at this time 8. Cirrhosis -03/07/17: CT abd and pelvis w/contrast : positive for moderate abdominal and pelvic ascites; no evidence of bowel obstruction 9. DVT Prophylaxis -Lovenox 40mg SC QD 10. GI prophylaxis -Pantoprazole 40 mg IV QD
[2017-03-08] MEDS ORDERED: Lidocaine 1% Inj (20ml) ONE (16:20)
--- NOTE | 2017-03-08 16:36 | PCM.SURG1 ---
Surgeon's Initial Post Op Note - Surgeon's Notes Surgeon: Anthony Denny MD Funeral Planning Counselor: None Type of Anesthesia: Local Pre-Operative Diagnosis: infection, poor IV access Operative Findings: patent right basilic vein. catheter tip: cavoatrial junction. catheter length: 38 cm Post-Operative Diagnosis: same Operation Performed: RUE PICC insertion Specimen/Specimens Removed: n/a Estimated Blood Loss: EBL {In ML}: 0 Date of Surgery/Procedure: 03/08/17 Time of Surgery/Procedure: 16:30
[2017-03-08 16:55] LABS: HEMOGLOBIN 10.5 g/dL (12.0-16.0); MEAN CELL VOLUME 101.7 fl (81.0-99.0); MEAN CORPUSCULAR HEMOGLOBIN 32.2 pg (27.0-31.0); MEAN CORPUSCULAR HGB CONC 31.7 g/dL (33.0-37.0); RBC 3.26 Mil/uL (3.80-5.20); RED CELL DISTRIBUTION WIDTH 17.4 % (11.5-14.5); WHITE BLOOD COUNT 32.7 K/uL (4.8-10.8)
[2017-03-08 17:16] LABS: ALB/GLOB RATIO 0.7 (1.0-2.1); ALBUMIN 2.8 g/dL (3.5-5.0); ALT/SGPT 69 U/L (9-52); AST/SGOT 59 U/L (14-36); BLOOD UREA NITROGEN 66 mg/dl (7-17); CALCIUM 9.5 mg/dL (8.4-10.2); GFR AFRICAN-AMERICAN > 60; GFR NON-AFRICAN AMERICAN 58
[2017-03-08] MEDS: Enoxaparin 40 mg Syringe SC SCH (18:32)
[2017-03-08] MEDS: Linezolid 600 mg in D5W 300 ml 600 MG/300 ML BAG IVPB SCH (22:07)
[2017-03-09] MEDS: Albuterol-Ipratrop 3 mg / 0.5 (3 ml) UD INH SCH ×6 (00:19→19:38)
[2017-03-09] MEDS: Aztreonam 2 GM in Sodium Chloride 0.9% 100 ML IVPB SCH ×3 (02:02→17:21)
[2017-03-09] MEDS: MethylPREDNISolone 40 mg Vial IVP SCH ×3 (02:03→17:28)
[2017-03-09] MEDS ORDERED: Fentanyl Citrate 2,500 MCG in Dextrose 5% In Water 200 ML IV SCH ×2 (04:45→05:15)
[2017-03-09 05:28] LABS: ABG ALLEN TEST YES; ARTERIAL BLOOD GAS HCO3 22.1 mmol/L (21-28); ARTERIAL BLOOD GAS HEMOGLOBIN 10.7 g/dL (11.7-17.4); ARTERIAL BLOOD GAS O2 CAPACITY 14.6 mL/dL (16-24); ARTERIAL BLOOD GAS O2 CONTENT 14.4 ML/dL (15-23); ARTERIAL BLOOD GAS O2 SAT 98.9 % (95-98); ARTERIAL BLOOD GAS PCO2 38 mm/Hg (35-45); ARTERIAL BLOOD GAS PH 7.36 (7.35-7.45); ARTERIAL BLOOD GAS PO2 86 mm/Hg (80-100); ARTERIAL BLOOD GAS TCO2 22.7 mmol/L (22-28)
[2017-03-09] MEDS ORDERED: fentaNYL 1,000 MCG in Sodium Chloride 0.9% 80 ML IV SCH ×2 (05:30→06:00)
[2017-03-09 05:33] LABS: HEMOGLOBIN 10.1 g/dL (12.0-16.0); MEAN CELL VOLUME 100.7 fl (81.0-99.0); MEAN CORPUSCULAR HEMOGLOBIN 32.8 pg (27.0-31.0); MEAN CORPUSCULAR HGB CONC 32.5 g/dL (33.0-37.0); RBC 3.08 Mil/uL (3.80-5.20); RED CELL DISTRIBUTION WIDTH 17.3 % (11.5-14.5)
[2017-03-09 05:42] LABS: WHITE BLOOD COUNT 19.4 K/uL (4.8-10.8)
[2017-03-09 05:50] LABS: ALB/GLOB RATIO 0.6 (1.0-2.1); ALBUMIN 2.5 g/dL (3.5-5.0); ALT/SGPT 61 U/L (9-52); AST/SGOT 45 U/L (14-36); BLOOD UREA NITROGEN 65 mg/dl (7-17); CALCIUM 9.5 mg/dL (8.4-10.2); GFR AFRICAN-AMERICAN > 60; GFR NON-AFRICAN AMERICAN 58
[2017-03-09] MEDS: metroNIDAZOLE 500mg/100ml NS 100 ML IVPB SCH ×3 (07:20→23:42)
[2017-03-09] MEDS: Fluconazole IV 200mg/100 ml NS 100 ML IVPB SCH (09:35)
[2017-03-09] MEDS: Lidocaine 5% Patch TD SCH (09:36)
[2017-03-09] MEDS: Enoxaparin 40 mg Syringe SC SCH (09:37)
--- NOTE | 2017-03-09 09:38 | CP.PCM.PN ---
Subjective - Date & Time of Evaluation Date of Evaluation: 03/09/17 Time of Evaluation: 09:39 - Subjective Subjective: STILL INTUBATED AND BEING VENTILATED RESPONDS TO VERBAL COMMANDS Objective - Vital Signs/Intake and Output Vital Signs (last 24 hours): Temp Pulse Resp BP Pulse Ox 98.7 F 84 16 126/73 99 03/09/17 08:00 03/09/17 08:00 03/09/17 08:00 03/09/17 08:00 03/09/17 08:00 Intake and Output: 03/09/17 03/09/17 06:59 18:59 Intake Total 964 Output Total 600 Balance 364 - Medications Medications: Current Medications Acetaminophen (Tylenol 325mg Tab) 650 mg PO Q6H PRN PRN Reason: Pain, Mild (1-3) Acetaminophen (Tylenol 325mg Tab) 650 mg PO Q6H PRN PRN Reason: Fever >100.4 F Albuterol/Ipratropium (Duoneb 3 Mg/0.5 Mg (3 Ml) Ud) 3 ml INH RQ4 [facility] Last Admin: 03/09/17 08:11 Dose: 3 ml Enoxaparin Sodium (Lovenox) 40 mg SC DAILY [facility] PRN Reason: Protocol Last Admin: 03/08/17 18:32 Dose: 40 mg Folic Acid (Folic Acid) 1 mg PO DAILY [facility] Last Admin: 03/08/17 08:36 Dose: 1 mg Fluconazole (Diflucan Iv 200 Mg/100 Ml Ns) 100 mls @ 100 mls/hr IVPB DAILY [facility] Last Admin: 03/09/17 09:35 Dose: 100 mls/hr Aztreonam 2 gm/ Sodium (Chloride) 100 mls @ 100 mls/hr IVPB Q8 [facility] PRN Reason: Protocol Last Admin: 03/09/17 09:34 Dose: 100 mls/hr Metronidazole (Flagyl 500mg/100ml Ns) 100 mls @ 100 mls/hr IVPB Q8H [facility] PRN Reason: Protocol Last Admin: 03/09/17 07:20 Dose: 100 mls/hr Linezolid (Zyvox 600mg/300ml D5w) 600 mg in 300 mls @ 300 mls/hr IVPB Q12 [facility] PRN Reason: Protocol Last Admin: 03/08/17 22:07 Dose: 300 mls/hr Fentanyl 1,000 mcg/ Sodium (Chloride) 100 mls @ 9.57 mls/hr IV .[id number] [facility]; 1 MCG/KG/HR PRN Reason: Protocol Last Admin: 03/09/17 05:25 Dose: 1 mcg/kg/hr, 9.57 mls/hr Lactulose (Enulose) 20 gm PO QID [facility] Last Admin: 03/09/17 09:35 Dose: 20 gm Lidocaine (Lidoderm) 1 ea TD DAILY [facility] Last Admin: 03/08/17 08:37 Dose: 1 ea Methylprednisolone (Solu-Medrol) 40 mg IVP Q8 [facility] Last Admin: 03/09/17 02:03 Dose: 40 mg Multivitamins/Minerals (Therapeutic-M Tab) 1 tab PO DAILY [facility] Last Admin: 03/08/17 08:35 Dose: 1 tab Nystatin (Mycostatin Cream) 1 applic TOP TID [facility] Last Admin: 03/08/17 17:16 Dose: 1 applic Nystatin (Nystop Topical Powder) 1 applic TOP QID [facility] Last Admin: 03/08/17 22:08 Dose: 1 applic Pantoprazole Sodium (Protonix Inj) 40 mg IVP DAILY [facility] Last Admin: 03/08/17 08:35 Dose: 40 mg Rifaximin (Xifaxan) 550 mg PO BID [facility] PRN Reason: Protocol Last Admin: 03/08/17 17:14 Dose: 550 mg Thiamine HCl (Vitamin B1 Tab) 100 mg PO DAILY [facility] Last Admin: 03/08/17 08:36 Dose: 100 mg - Labs Labs: 03/09/17 04:30 03/09/17 04:30 PT 21.0 Seconds (9.8-13.1) H D 03/04/17 14:30 INR 1.9 (0.9-1.2) H D 03/04/17 14:30 APTT 30.4 Seconds (25.6-37.1) 03/02/17 08:11 - Constitutional Appears: Chronically Ill - Head Exam Head Exam: ATRAUMATIC, NORMAL INSPECTION, NORMOCEPHALIC - Eye Exam Eye Exam: EOMI, Normal appearance, PERRL Pupil Exam: NORMAL ACCOMODATION, PERRL - ENT Exam ENT Exam: Mucous Membranes Moist, Normal Exam - Neck Exam Neck Exam: Full ROM, Normal Inspection. absent: Lymphadenopathy - Respiratory Exam Respiratory Exam: Prolonged Expiratory Phase, Rales - Cardiovascular Exam Cardiovascular Exam: REGULAR RHYTHM, +S1, +S2. absent: Murmur - GI/Abdominal Exam GI & Abdominal Exam: Distended, Soft, Normal Bowel Sounds. absent: Tenderness - Rectal Exam Rectal Exam: NORMAL INSPECTION - Extremities Exam Extremities Exam: Full ROM, Normal Capillary Refill, Normal Inspection. absent : Joint Swelling, Pedal Edema - Back Exam Back Exam: NORMAL INSPECTION - Neurological Exam Neurological Exam: Alert - Psychiatric Exam Psychiatric exam: Normal Affect, Normal Mood - Skin Skin Exam: Dry, Intact, Normal Color, Warm Assessment and Plan - Assessment and Plan (Free Text) Assessment: RESPIRATORY FAILURE ASCITES Plan: CONTINUE ATTEMPTS TO EXTUBATE WILL PROBABLY NEED PARACENTESES--DISCUSSED WITH DR AU
[2017-03-09] MEDS: Linezolid 600 mg in D5W 300 ml 600 MG/300 ML BAG IVPB SCH ×2 (09:48→20:24)
[2017-03-09] MEDS: Multivitamin With Minerals Tab PO SCH (09:48)
--- NOTE | 2017-03-09 09:50 | CP.PCM.PN ---
Subjective - Date & Time of Evaluation Date of Evaluation: 03/09/17 Time of Evaluation: 07:10 - Subjective Subjective: Patient seen and examined at bedside with attending-Dr. Lopez. Remains intubated , mildly sedated, responds to verbal commands and restless during physical exam. Objective - Vital Signs/Intake and Output Vital Signs (last 24 hours): Temp Pulse Resp BP Pulse Ox 98.7 F 84 16 126/73 99 03/09/17 08:00 03/09/17 08:00 03/09/17 08:00 03/09/17 08:00 03/09/17 08:00 Intake and Output: 03/09/17 03/09/17 06:59 18:59 Intake Total 964 Output Total 600 Balance 364 - Medications Medications: Current Medications Acetaminophen (Tylenol 325mg Tab) 650 mg PO Q6H PRN PRN Reason: Pain, Mild (1-3) Acetaminophen (Tylenol 325mg Tab) 650 mg PO Q6H PRN PRN Reason: Fever >100.4 F Albuterol/Ipratropium (Duoneb 3 Mg/0.5 Mg (3 Ml) Ud) 3 ml INH RQ4 [facility] Last Admin: 03/09/17 08:11 Dose: 3 ml Enoxaparin Sodium (Lovenox) 40 mg SC DAILY [facility] PRN Reason: Protocol Last Admin: 03/08/17 18:32 Dose: 40 mg Folic Acid (Folic Acid) 1 mg PO DAILY [facility] Last Admin: 03/08/17 08:36 Dose: 1 mg Fluconazole (Diflucan Iv 200 Mg/100 Ml Ns) 100 mls @ 100 mls/hr IVPB DAILY [facility] Last Admin: 03/09/17 09:35 Dose: 100 mls/hr Aztreonam 2 gm/ Sodium (Chloride) 100 mls @ 100 mls/hr IVPB Q8 [facility] PRN Reason: Protocol Last Admin: 03/09/17 09:34 Dose: 100 mls/hr Metronidazole (Flagyl 500mg/100ml Ns) 100 mls @ 100 mls/hr IVPB Q8H [facility] PRN Reason: Protocol Last Admin: 03/09/17 07:20 Dose: 100 mls/hr Linezolid (Zyvox 600mg/300ml D5w) 600 mg in 300 mls @ 300 mls/hr IVPB Q12 [facility] PRN Reason: Protocol Last Admin: 03/08/17 22:07 Dose: 300 mls/hr Fentanyl 1,000 mcg/ Sodium (Chloride) 100 mls @ 9.57 mls/hr IV .[id number] [facility]; 1 MCG/KG/HR PRN Reason: Protocol Last Admin: 03/09/17 05:25 Dose: 1 mcg/kg/hr, 9.57 mls/hr Lactulose (Enulose) 20 gm PO QID [facility] Last Admin: 03/09/17 09:35 Dose: 20 gm Lidocaine (Lidoderm) 1 ea TD DAILY [facility] Last Admin: 03/08/17 08:37 Dose: 1 ea Methylprednisolone (Solu-Medrol) 40 mg IVP Q8 [facility] Last Admin: 03/09/17 02:03 Dose: 40 mg Multivitamins/Minerals (Therapeutic-M Tab) 1 tab PO DAILY [facility] Last Admin: 03/08/17 08:35 Dose: 1 tab Nystatin (Mycostatin Cream) 1 applic TOP TID [facility] Last Admin: 03/08/17 17:16 Dose: 1 applic Nystatin (Nystop Topical Powder) 1 applic TOP QID [facility] Last Admin: 03/08/17 22:08 Dose: 1 applic Pantoprazole Sodium (Protonix Inj) 40 mg IVP DAILY [facility] Last Admin: 03/08/17 08:35 Dose: 40 mg Rifaximin (Xifaxan) 550 mg PO BID [facility] PRN Reason: Protocol Last Admin: 03/08/17 17:14 Dose: 550 mg Thiamine HCl (Vitamin B1 Tab) 100 mg PO DAILY [facility] Last Admin: 03/08/17 08:36 Dose: 100 mg - Labs Labs: 03/09/17 04:30 03/09/17 04:30 PT 21.0 Seconds (9.8-13.1) H D 03/04/17 14:30 INR 1.9 (0.9-1.2) H D 03/04/17 14:30 APTT 30.4 Seconds (25.6-37.1) 03/02/17 08:11 - Constitutional Appears: Chronically Ill - Head Exam Head Exam: ATRAUMATIC - Eye Exam Eye Exam: EOMI - ENT Exam ENT Exam: Mucous Membranes Moist - Respiratory Exam Respiratory Exam: Rales (intubated) - Cardiovascular Exam Cardiovascular Exam: REGULAR RHYTHM, +S1, +S2 - GI/Abdominal Exam GI & Abdominal Exam: Distended, Soft, Tenderness (mild diffuse tenderness to palpation) - Extremities Exam Extremities Exam: Pedal Edema (bilateral pitting edema +2) - Neurological Exam Neurological Exam: Alert - Psychiatric Exam Psychiatric exam: Anxious (mildly) - Skin Skin Exam: Dry, Intact Assessment and Plan - Assessment and Plan (Free Text) Assessment: 1. Acute respiratory failure -secondary to hepatic encephalopathy and respiratory distress -admitted ICU -continue Ventilator weaning protocol -Pulmonary consult appreciated: continue attempts to extubate, continue duonebs , steroids, consider abdominal paracentesis prior to extubation 2. Bacteremia -03/06/17: Blood culture positive for gram positive cocci -RUE PICC placed yesterday -Leukocytosis trending down -ID consult appreciated: antibiotics switched to Zyvox/Flagyl/Aztreonam ; change all line, send pt for CT chest/abd/pelvis once stable 3. Hepatic encephalopathy -GI Consult appreciated: continue with lactulose, rifaximin; -amonium levels normal 4. UTI -VRE, Ecoli resistant to levaquin -ID consult appreciated: antibiotics adjusted as above -03/06/17: repeat urine cx no growth 5. COPD exacerbation -duoneb -solumedrol -Dietetic Aide consult appreciated: management as above 6. Bilateral pneumonia -03/06/17: sputum culture: E. Coli -03/08/17: repeat CXR: no definite or acute infiltrate -f/u repeat CXR today -CT abd/pelvis 03/07/17: bilateral lower lobe infiltrates -s/p levaquin, discontinued Tygacil -ID management as above 7. Abdominal pain -XR Abd possible illeus vs small bowel obstruction -NG tube in place -03/07/17: CT abd and pelvis w/contrast : positive for moderate abdominal and pelvic ascites; no evidence of bowel obstruction -Surgery consult appreciated: No surgical intervention at this time -GI consult appreciated: will re-consult for re-evaluation of ascites and possible paracentesis 8. Cirrhosis -03/07/17: CT abd and pelvis w/contrast : positive for moderate abdominal and pelvic ascites; no evidence of bowel obstruction -albumin trending down-2.5 g/dL today, will consider administering albumin 9. DVT Prophylaxis -Lovenox 40mg SC QD 10. GI prophylaxis -Pantoprazole 40 mg IV QD
--- NOTE | 2017-03-09 10:40 | CP.CCUPN ---
<Mehul Deleon - Last Filed: 03/09/17 13:57> CCU Subjective - Physician Review Subjective (Free Text): 03/09/17 12:26 Pt. seen at bedside during rounds with . Overnight events reviewed. Pt. currently on mechanical ventilation and sedated on Fentanyl getting feeding via OG tube and soria in place. Critical Care Time Spent (in minutes): 45 CCU Objective - Vital Signs / Intake & Output Vital Signs (Last 4 hours): Vital Signs Temp Pulse Resp BP Pulse Ox 03/09/17 08:00 98.7 F 84 16 126/73 99 Intake and Output (Last 8hrs): Intake & Output 03/08/17 03/09/17 03/09/17 22:59 06:59 14:59 Intake Total 410 724 Output Total 500 600 Balance -90 124 Intake: IV 80 64 Intake, Piggyback 500 Tube Feeding 280 160 Free Water Flush 50 Output: Urine 500 400 Urethral (Soria) 500 400 Stool 200 Other: # Bowel Movements 100 - Physical Exam Head: Positive for: Atraumatic, Normocephalic Pupils: Positive for: PERRL, Sluggish Conjunctiva: Positive for: Icteric Mouth: Positive for: Moist Mucous Membranes Neck: Positive for: Trachea Midline, Other (Pt. noted to move head side to side on palpation of neck) Respiratory/Chest: Positive for: Other (Pt. on mechanical ventilation) Cardiovascular: Positive for: Regular Rate and Rhythm, Normal S1, S2 Abdomen: Positive for: Distention, Peritoneal Signs (Pain on palpation of abdomen, abdomen distended). Negative for: Tenderness Back: Negative for: CVA Tenderness Upper Extremity: Positive for: NORMAL PULSES. Negative for: Cyanosis, Edema Lower Extremity: Positive for: Edema, NORMAL PULSES, Capillary Refill < 2 s. Negative for: CALF TENDERNESS Neurological: Positive for: Other (Lethargic) Skin: Positive for: Warm. Negative for: Rashes Psychiatric: Negative for: Alert, Oriented x 3, Normal Insight - Medications Active Medications: Active Medications Generic Name Dose Route Start Last Admin Trade Name Freq PRN Reason Stop Dose Admin Acetaminophen 650 mg 03/02/17 20:39 Tylenol 325mg Tab PO Q6H PRN Pain, Mild (1-3) Acetaminophen 650 mg 03/02/17 20:39 Tylenol 325mg Tab PO Q6H PRN Fever >100.4 F Albuterol/Ipratropium 3 ml 03/03/17 00:00 03/09/17 08:11 Duoneb 3 Mg/0.5 Mg (3 Ml) Ud INH 3 ml RQ4 [facility] Administration Enoxaparin Sodium 40 mg 03/08/17 16:00 03/09/17 09:37 Lovenox SC 40 mg DAILY [facility] Administration Protocol Folic Acid 1 mg 03/03/17 09:00 03/09/17 09:36 Folic Acid PO 1 mg DAILY [facility] Administration Fluconazole 100 mls @ 100 mls/hr 03/06/17 12:30 03/09/17 09:35 Diflucan Iv 200 Mg/100 Ml Ns IVPB 100 mls/hr DAILY [facility] Administration Aztreonam 2 gm/ Sodium 100 mls @ 100 mls/hr 03/07/17 15:00 03/09/17 09:34 Chloride IVPB 100 mls/hr Q8 [facility] Administration Protocol Metronidazole 100 mls @ 100 mls/hr 03/07/17 15:00 03/09/17 07:20 Flagyl 500mg/100ml Ns IVPB 100 mls/hr Q8H [facility] Administration Protocol Linezolid 600 mg in 300 mls @ 300 mls/hr 03/08/17 21:00 03/09/17 09:48 Zyvox 600mg/300ml D5w IVPB 300 mls/hr Q12 [facility] Administration Protocol Fentanyl 1,000 mcg/ Sodium 100 mls @ 9.57 mls/hr 03/09/17 06:00 03/09/17 05: 25 Chloride IV 1 mcg/kg/hr .[id number] [facility] 9.57 mls/hr Protocol Administration 1 MCG/KG/HR Lactulose 20 gm 03/02/17 22:00 03/09/17 09:35 Enulose PO 20 gm QID [facility] Administration Lidocaine 1 ea 03/03/17 09:00 03/09/17 09:36 Lidoderm TD 1 ea DAILY [facility] Administration Methylprednisolone 40 mg 03/03/17 01:00 03/09/17 09:47 Solu-Medrol IVP 40 mg Q8 [facility] Administration Multivitamins/Minerals 1 tab 03/03/17 09:00 03/09/17 09:48 Therapeutic-M Tab PO 1 tab DAILY [facility] Administration Nystatin 1 applic 03/03/17 09:00 03/09/17 09:58 Mycostatin Cream TOP 1 applic TID [facility] Administration Nystatin 1 applic 03/02/17 22:00 03/09/17 09:59 Nystop Topical Powder TOP 1 applic QID [facility] Administration Pantoprazole Sodium 40 mg 03/03/17 09:00 03/09/17 09:37 Protonix Inj IVP 40 mg DAILY [facility] Administration Rifaximin 550 mg 03/03/17 09:00 03/09/17 09:48 Xifaxan PO 550 mg BID [facility] Administration Protocol Thiamine HCl 100 mg 03/03/17 09:00 03/09/17 09:48 Vitamin B1 Tab PO 100 mg DAILY [facility] Administration - Patient Studies Lab Studies: Microbiology Studies 03/06/17 16:30 S.aureus & Coag-Neg Staph PNA FISH - Final Blood Blood Culture - Preliminary Vancomycin Resistant E.faecium Gram Stain - Preliminary 03/06/17 17:10 Urine Culture - Final Urine,Catheterized No Growth (<1,000 CFU/ML) 03/06/17 15:33 Gram Stain - Final Sputum Sputum Culture - Final Escherichia Coli Lab Studies 03/09/17 03/09/17 03/09/17 Range/Units 04:54 04:45 04:30 WBC (4.8-10.8) K/uL RBC (3.80-5.20) Mil/uL Hgb (12.0-16.0) g/dL Hct (34.0-47.0) % MCV (81.0-99.0) fl MCH (27.0-31.0) pg MCHC (33.0-37.0) g/dL RDW (11.5-14.5) % Plt Count (130-400) K/uL pCO2 38 (35-45) mm/Hg pO2 86 (80-100) mm/Hg HCO3 22.1 (21-28) mmol/L ABG pH 7.36 (7.35-7.45) ABG Total CO2 22.7 (22-28) mmol/L ABG O2 Saturation 98.9 H (95-98) % ABG O2 Content 14.4 L (15-23) ML/dL ABG Base Excess -3.6 L (-2.0-3.0) mmol/L ABG Hemoglobin 10.7 L (11.7-17.4) g/dL ABG Carboxyhemoglobin 2.0 H (0.5-1.5) % POC ABG HHb (Measured) 1.1 (0.0-5.0) % ABG Methemoglobin 1.6 (0.0-3.0) % ABG O2 Capacity 14.6 L (16-24) mL/dL Dick Test Yes A-a O2 Difference 152.0 mm/Hg Hgb O2 Saturation 95.2 (95.0-98.0) % Vent Mode Prvc ac Mechanical Rate 16 FiO2 40.0 % Tidal Volume 500 PEEP 5 Sodium 140 (132-148) mmol/l Potassium 3.6 (3.6-5.0) MMOL/L Chloride 106 (98-107) mmol/L Carbon Dioxide 21 L (22-30) mmol/L Anion Gap 17 (10-20) BUN 65 H (7-17) mg/dl Creatinine 1.0 (0.7-1.2) mg/dl Est GFR ( Amer) > 60 Est GFR (Non-Af Amer) 58 Random Glucose 167 H (65-105) mg/dL Lactic Acid 2.1 (0.7-2.1) MMOL/L Calcium 9.5 (8.4-10.2) mg/dL Total Bilirubin 1.8 H (0.2-1.3) mg/dl AST 45 H D (14-36) U/L ALT 61 H (9-52) U/L Alkaline Phosphatase 244 H (38-126) U/L Total Protein 6.5 (6.3-8.2) G/DL Albumin 2.5 L (3.5-5.0) g/dL Globulin 4.0 H (2.2-3.9) gm/dL Albumin/Globulin Ratio 0.6 L (1.0-2.1) Urine HCG, Qual (NEGATIVE) 03/09/17 03/08/17 03/08/17 Range/Units 04:30 16:40 16:40 WBC 19.4 H 32.7 H (4.8-10.8) K/uL RBC 3.08 L 3.26 L (3.80-5.20) Mil/uL Hgb 10.1 L 10.5 L (12.0-16.0) g/dL Hct 31.1 L 33.2 L (34.0-47.0) % MCV 100.7 H 101.7 H (81.0-99.0) fl MCH 32.8 H 32.2 H (27.0-31.0) pg MCHC 32.5 L 31.7 L (33.0-37.0) g/dL RDW 17.3 H 17.4 H (11.5-14.5) % Plt Count 74 L 82 L D (130-400) K/uL pCO2 (35-45) mm/Hg pO2 (80-100) mm/Hg HCO3 (21-28) mmol/L ABG pH (7.35-7.45) ABG Total CO2 (22-28) mmol/L ABG O2 Saturation (95-98) % ABG O2 Content (15-23) ML/dL ABG Base Excess (-2.0-3.0) mmol/L ABG Hemoglobin (11.7-17.4) g/dL ABG Carboxyhemoglobin (0.5-1.5) % POC ABG HHb (Measured) (0.0-5.0) % ABG Methemoglobin (0.0-3.0) % ABG O2 Capacity (16-24) mL/dL Dick Test A-a O2 Difference mm/Hg Hgb O2 Saturation (95.0-98.0) % Vent Mode Mechanical Rate FiO2 % Tidal Volume PEEP Sodium 140 (132-148) mmol/l Potassium 3.9 (3.6-5.0) MMOL/L Chloride 105 (98-107) mmol/L Carbon Dioxide 23 (22-30) mmol/L Anion Gap 16 (10-20) BUN 66 H (7-17) mg/dl Creatinine 1.0 (0.7-1.2) mg/dl Est GFR ( Amer) > 60 Est GFR (Non-Af Amer) 58 Random Glucose 142 H (65-105) mg/dL Lactic Acid (0.7-2.1) MMOL/L Calcium 9.5 (8.4-10.2) mg/dL Total Bilirubin 1.9 H (0.2-1.3) mg/dl AST 59 H (14-36) U/L ALT 69 H D (9-52) U/L Alkaline Phosphatase 254 H D (38-126) U/L Total Protein 7.0 (6.3-8.2) G/DL Albumin 2.8 L (3.5-5.0) g/dL Globulin 4.2 H (2.2-3.9) gm/dL Albumin/Globulin Ratio 0.7 L (1.0-2.1) Urine HCG, Qual (NEGATIVE) 03/08/17 Range/Units 10:44 WBC (4.8-10.8) K/uL RBC (3.80-5.20) Mil/uL Hgb (12.0-16.0) g/dL Hct (34.0-47.0) % MCV (81.0-99.0) fl MCH (27.0-31.0) pg MCHC (33.0-37.0) g/dL RDW (11.5-14.5) % Plt Count (130-400) K/uL pCO2 (35-45) mm/Hg pO2 (80-100) mm/Hg HCO3 (21-28) mmol/L ABG pH (7.35-7.45) ABG Total CO2 (22-28) mmol/L ABG O2 Saturation (95-98) % ABG O2 Content (15-23) ML/dL ABG Base Excess (-2.0-3.0) mmol/L ABG Hemoglobin (11.7-17.4) g/dL ABG Carboxyhemoglobin (0.5-1.5) % POC ABG HHb (Measured) (0.0-5.0) % ABG Methemoglobin (0.0-3.0) % ABG O2 Capacity (16-24) mL/dL Dick Test A-a O2 Difference mm/Hg Hgb O2 Saturation (95.0-98.0) % Vent Mode Mechanical Rate FiO2 % Tidal Volume PEEP Sodium (132-148) mmol/l Potassium (3.6-5.0) MMOL/L Chloride (98-107) mmol/L Carbon Dioxide (22-30) mmol/L Anion Gap (10-20) BUN (7-17) mg/dl Creatinine (0.7-1.2) mg/dl Est GFR ( Amer) Est GFR (Non-Af Amer) Random Glucose (65-105) mg/dL Lactic Acid (0.7-2.1) MMOL/L Calcium (8.4-10.2) mg/dL Total Bilirubin (0.2-1.3) mg/dl AST (14-36) U/L ALT (9-52) U/L Alkaline Phosphatase (38-126) U/L Total Protein (6.3-8.2) G/DL Albumin (3.5-5.0) g/dL Globulin (2.2-3.9) gm/dL Albumin/Globulin Ratio (1.0-2.1) Urine HCG, Qual Negative (NEGATIVE) Laboratory Results - last 24 hr 03/08/17 03/08/17 03/08/17 10:44 16:40 16:40 WBC 32.7 H RBC 3.26 L Hgb 10.5 L Hct 33.2 L MCV 101.7 H MCH 32.2 H MCHC 31.7 L RDW 17.4 H Plt Count 82 L D pCO2 pO2 HCO3 ABG pH ABG Total CO2 ABG O2 Saturation ABG O2 Content ABG Base Excess ABG Hemoglobin ABG Carboxyhemoglobin POC ABG HHb (Measured) ABG Methemoglobin ABG O2 Capacity Dick Test A-a O2 Difference Hgb O2 Saturation Vent Mode Mechanical Rate FiO2 Tidal Volume PEEP Sodium 140 Potassium 3.9 Chloride 105 Carbon Dioxide 23 Anion Gap 16 BUN 66 H Creatinine 1.0 Est GFR ( Amer) > 60 Est GFR (Non-Af Amer) 58 Random Glucose 142 H Lactic Acid Calcium 9.5 Total Bilirubin 1.9 H AST 59 H ALT 69 H D Alkaline Phosphatase 254 H D Total Protein 7.0 Albumin 2.8 L Globulin 4.2 H Albumin/Globulin Ratio 0.7 L Urine HCG, Qual Negative 03/09/17 03/09/17 03/09/17 04:30 04:30 04:45 WBC 19.4 H RBC 3.08 L Hgb 10.1 L Hct 31.1 L MCV 100.7 H MCH 32.8 H MCHC 32.5 L RDW 17.3 H Plt Count 74 L pCO2 pO2 HCO3 ABG pH ABG Total CO2 ABG O2 Saturation ABG O2 Content ABG Base Excess ABG Hemoglobin ABG Carboxyhemoglobin POC ABG HHb (Measured) ABG Methemoglobin ABG O2 Capacity Dick Test A-a O2 Difference Hgb O2 Saturation Vent Mode Mechanical Rate FiO2 Tidal Volume PEEP Sodium 140 Potassium 3.6 Chloride 106 Carbon Dioxide 21 L Anion Gap 17 BUN 65 H Creatinine 1.0 Est GFR ( Amer) > 60 Est GFR (Non-Af Amer) 58 Random Glucose 167 H Lactic Acid 2.1 Calcium 9.5 Total Bilirubin 1.8 H AST 45 H D ALT 61 H Alkaline Phosphatase 244 H Total Protein 6.5 Albumin 2.5 L Globulin 4.0 H Albumin/Globulin Ratio 0.6 L Urine HCG, Qual 03/09/17 04:54 WBC RBC Hgb Hct MCV MCH MCHC RDW Plt Count pCO2 38 pO2 86 HCO3 22.1 ABG pH 7.36 ABG Total CO2 22.7 ABG O2 Saturation 98.9 H ABG O2 Content 14.4 L ABG Base Excess -3.6 L ABG Hemoglobin 10.7 L ABG Carboxyhemoglobin 2.0 H POC ABG HHb (Measured) 1.1 ABG Methemoglobin 1.6 ABG O2 Capacity 14.6 L Dick Test Yes A-a O2 Difference 152.0 Hgb O2 Saturation 95.2 Vent Mode Prvc ac Mechanical Rate 16 FiO2 40.0 Tidal Volume 500 PEEP 5 Sodium Potassium Chloride Carbon Dioxide Anion Gap BUN Creatinine Est GFR ( Amer) Est GFR (Non-Af Amer) Random Glucose Lactic Acid Calcium Total Bilirubin AST ALT Alkaline Phosphatase Total Protein Albumin Globulin Albumin/Globulin Ratio Urine HCG, Qual Review of Systems - Review of Systems Review of Systems: Unable to obtain due to patient being sedated. Critical Care Progress Note - Ventilator Checklist Head of Bed 30 Degrees: Yes Daily Sedation Vacation: Yes Daily Assessment of Readiness to Wean: Yes Daily Spontaneous Breathing Trial: Yes PUD Prophalyxis: Yes DVT Prophylaxis: Yes Oral Care with Chlorhexidine Gluconate {CHG}: Yes - Vent Settings MODE:: ASSIST CONTROL TIDAL VOLUME:: 400 RESP RATE:: 10 FIO2:: 40 PEEP:: 5 - Extremities/Vascular Does the Patient have a Central Venous Catheter?: No Does the Patient have a Soria Catheter?: Yes Does the Patient need a Soria Catheter?: Yes - Restraints Justification for Restraints: High risk for self extubation - Prophylaxis GI Prophylaxis GI: PPI - Prophylaxis DVT Prophylaxis DVT: SCDs - Nutrition Nutrition: OG tube feedings Assessment/Plan - Assessment and Plan (Free Text) Plan: 51 y.o. female in ICU currently on mechanical ventilation admitted for sepsis and COPD exacerbation now with abdominal pain. 1- Abdominal pain of unclear etiology likely due to ascities due to liver cirrhosis- afebrile last 24 hours a- Will order flat plate b- Will consider therapeutic vs. diagnostic bedside Paracentecis 2- Sepsis a- BCX positive for E. Facalis sensitive to Linazolid, currently on Linazolid will continue with Linazolid b- BCx positive for E. Coli sensitive to Ertapenem, currently on Aztreonam will continue Aztreonam 3- COPD exacerbation a- Continue Duonebs Q4 [facility] b- Continue Solumedrol 40mg Q8 c- Currently on mechanical ventilation- will consider weaning 4- Pneumonia- Sputum cultures show E.coli - sensitive to Linazolid a- Continue with Linazolid and Aztreonam b- I.D. input appreciated c- CT chest on 03/07/17 shows bilateral lower lobe infiltrate 5- Mechanical ventilation a- Will stop Fentanyl drip- Ativan for agitation b- Adjusted vent settings to A/C/10/400/5/40% 6- Hepatic Encephalopathy a- Will order ammonia level b- Will continue Rifaxamine and Lactulose c- Will adjust medication on evaluation of patient ammonia level and mental status 7- Ascitis a- Start Lasix 40mg daily b- Start Spironolactone 50mg daily 8- Coaguloapthy secondary to liver cirrhosis a- Repeat Coags today b- SCD for DVT prophylaxis 9- Soria Catheter - Ins & Outs a- Continue to monitor Fluids b- Will consider adding Lasix due to Ascites, Renal function currently preserved 10- Diet a- Continue OG tube feedings 11- GI prophylaxis a- Protonix 40mg IVP daily 12- DVT prophylaxis a- SCD given pt. has liver cirrhosis and underlying coagulopathy 13- Code status a- Full code 14- Morbid Obesity a- Chronic no intervention at this time could be affecting ventilation and work of breathing <Mario Grewal - Last Filed: 03/09/17 17:55> CCU Subjective - Physician Review Subjective (Free Text): Attestation: Patient seen and examined at the bedside with Resident Dr. Izabella Deleon; and I agree with his outline of plans and management documented above as discussed on AM rounds reflecting my review of all applicable clinical data, and participation in the care of the patient throughout the day in ICU; March 09, 2017.
--- NOTE | 2017-03-09 11:45 | VASCULAR ---
PROCEDURE: PERIPHERALLY INSERTED CENTRAL VENOUS CATHETER INSERTION CLINICAL HISTORY: 51-year-old female with poor IV access requiring intravenous antibiotics is referred to Interventional Radiology for PICC insertion. PROCEDURE: 1. Focused ultrasound of the right upper extremity vasculature. 2. Ultrasound-guided access. 3. Insertion of peripherally inserted central venous catheter. 4. Fluoroscopic localization of catheter tip. PRE-PROCEDURE FINDINGS: 1. Patent right basilic vein. POST-PROCEDURE FINDINGS: 1. Placement of 5 Nepalese double-lumen PICC. 2. Catheter length: 38 cm. 3. Catheter tip at cavoatrial junction. INTERVENTIONAL RADIOLOGIST: Anthony Denny M.D. (the attending was present for the entire procedure) ANESTHESIA: None. MEDICATION: Lidocaine 1% for local subcutaneous analgesia. COMPLICATIONS: None. RADIATION DOSE: Fluoroscopy Time: 10.2 seconds Cumulative Dose: 1.39 mGy PROCEDURE DESCRIPTION AND FINDINGS: The risks, benefits, alternatives and possible complications of the procedure were fully discussed; all questions were answered and informed consent was obtained. The patient was brought into the interventional suite and a pre-procedure 'time-out' was performed. The patient was placed on the fluoroscopy table in the supine position. The right upper extremity was prepped and draped in the usual sterile fashion. Maximum sterile barrier precautions were maintained throughout the entire procedure. Preliminary ultrasound images of the right upper extremity vasculature demonstrate patency of the right basilic vein. Following subcutaneous infiltration of 1% lidocaine for local analgesia, under ultrasound guidance, a 21-gauge needle was advanced into the right basilic vein with real-time visualization of needle entry. The ultrasound images were permanently recorded and submitted to the PACS. A 0.018 guidewire was advanced centrally to the cavoatrial junction. A 5.5 Nepalese peel-away sheath was advanced over the guidewire. After obtaining length measurement, a 5 Nepalese double-lumen PICC was placed with the tip of the catheter at the cavoatrial junction. The total length of the catheter is 38 cm. The hub of the PICC was secured to the skin using a sterile adhesive bandage. The patient tolerated the procedure well without immediate post-procedure complications and was transferred back to the floor in stable condition. IMPRESSION: SUCCESSFUL INSERTION OF RIGHT UPPER EXTREMITY PICC. PICC OK TO USE.
[2017-03-09 11:49] LABS: HEMOGLOBIN 10.5 g/dL (12.0-16.0); MEAN CELL VOLUME 102.1 fl (81.0-99.0); MEAN CORPUSCULAR HEMOGLOBIN 32.2 pg (27.0-31.0); MEAN CORPUSCULAR HGB CONC 31.5 g/dL (33.0-37.0); RBC 3.26 Mil/uL (3.80-5.20); RED CELL DISTRIBUTION WIDTH 17.6 % (11.5-14.5); WHITE BLOOD COUNT 29.3 K/uL (4.8-10.8)
[2017-03-09 12:01] LABS: PROTHROMBIN TIME 20.1 Seconds (9.8-13.1)
--- NOTE | 2017-03-09 12:01 | RAD ---
HISTORY: ascites COMPARISON: No prior. FINDINGS: BOWEL: . No obstruction. No free air. These central positioning of the 2 bowel loops present interval diffuse haziness of the abdomen -compatible with patient's known ascites -anasarca state. BONES: Right lateral marginal osteophytes. Bilateral L4-5 facet hypertrophic arthrosis. OTHER FINDINGS: Large body habitus IMPRESSION: No bowel obstruction or free air. Findings consistent with ascites. Inferior facet hypertrophic arthrosis.
[2017-03-09 12:03] LABS: INR 1.8 (0.9-1.2); PARTIAL THROMBOPLASTIN TIME 36.8 Seconds (25.6-37.1)
--- NOTE | 2017-03-09 12:37 | CP.PCM.PN ---
Subjective - Date & Time of Evaluation Date of Evaluation: 03/09/17 Time of Evaluation: 05:00 - Subjective Subjective: VRE in blood source unclear sens to Zyvox consider ALEX when stable Objective - Vital Signs/Intake and Output Vital Signs (last 24 hours): Temp Pulse Resp BP Pulse Ox 98.4 F 118 H 14 142/87 96 03/09/17 12:00 03/09/17 12:00 03/09/17 12:00 03/09/17 12:00 03/09/17 12:00 Intake and Output: 03/09/17 03/09/17 06:59 18:59 Intake Total 964 Output Total 600 Balance 364 - Medications Medications: Current Medications Acetaminophen (Tylenol 325mg Tab) 650 mg PO Q6H PRN PRN Reason: Pain, Mild (1-3) Acetaminophen (Tylenol 325mg Tab) 650 mg PO Q6H PRN PRN Reason: Fever >100.4 F Albuterol/Ipratropium (Duoneb 3 Mg/0.5 Mg (3 Ml) Ud) 3 ml INH RQ4 [facility] Last Admin: 03/09/17 11:39 Dose: 3 ml Folic Acid (Folic Acid) 1 mg PO DAILY [facility] Last Admin: 03/09/17 09:36 Dose: 1 mg Furosemide (Lasix) 40 mg IVP DAILY [facility] Fluconazole (Diflucan Iv 200 Mg/100 Ml Ns) 100 mls @ 100 mls/hr IVPB DAILY [facility] Last Admin: 03/09/17 09:35 Dose: 100 mls/hr Aztreonam 2 gm/ Sodium (Chloride) 100 mls @ 100 mls/hr IVPB Q8 [facility] PRN Reason: Protocol Last Admin: 03/09/17 09:34 Dose: 100 mls/hr Metronidazole (Flagyl 500mg/100ml Ns) 100 mls @ 100 mls/hr IVPB Q8H [facility] PRN Reason: Protocol Last Admin: 03/09/17 07:20 Dose: 100 mls/hr Linezolid (Zyvox 600mg/300ml D5w) 600 mg in 300 mls @ 300 mls/hr IVPB Q12 [facility] PRN Reason: Protocol Last Admin: 03/09/17 09:48 Dose: 300 mls/hr Lactulose (Enulose) 20 gm PO QID [facility] Last Admin: 03/09/17 09:35 Dose: 20 gm Lidocaine (Lidoderm) 1 ea TD DAILY [facility] Last Admin: 03/09/17 09:36 Dose: 1 ea Lorazepam (Ativan) 2 mg IVP Q6 PRN PRN Reason: Agitation Methylprednisolone (Solu-Medrol) 40 mg IVP Q8 [facility] Last Admin: 03/09/17 09:47 Dose: 40 mg Multivitamins/Minerals (Therapeutic-M Tab) 1 tab PO DAILY [facility] Last Admin: 03/09/17 09:48 Dose: 1 tab Nystatin (Mycostatin Cream) 1 applic TOP TID [facility] Last Admin: 03/09/17 09:58 Dose: 1 applic Nystatin (Nystop Topical Powder) 1 applic TOP QID [facility] Last Admin: 03/09/17 09:59 Dose: 1 applic Pantoprazole Sodium (Protonix Inj) 40 mg IVP DAILY [facility] Last Admin: 03/09/17 09:37 Dose: 40 mg Rifaximin (Xifaxan) 550 mg PO BID [facility] PRN Reason: Protocol Last Admin: 03/09/17 09:48 Dose: 550 mg Spironolactone (Aldactone) 50 mg NG DAILY [facility] Thiamine HCl (Vitamin B1 Tab) 100 mg PO DAILY [facility] Last Admin: 03/09/17 09:48 Dose: 100 mg - Labs Labs: 03/09/17 11:19 03/09/17 04:30 PT 20.1 Seconds (9.8-13.1) H 03/09/17 11:15 INR 1.8 (0.9-1.2) H 03/09/17 11:15 APTT 36.8 Seconds (25.6-37.1) 03/09/17 11:15 - Constitutional Appears: Chronically Ill - Head Exam Head Exam: NORMOCEPHALIC - Eye Exam Eye Exam: absent: Scleral icterus - ENT Exam ENT Exam: Mucous Membranes Dry - Neck Exam Neck Exam: absent: Lymphadenopathy - Respiratory Exam Respiratory Exam: Decreased Breath Sounds - Cardiovascular Exam Cardiovascular Exam: REGULAR RHYTHM - GI/Abdominal Exam GI & Abdominal Exam: Distended, Soft - Rectal Exam Rectal Exam: Deferred - Exam Exam: NORMAL INSPECTION Assessment and Plan (1) Acute and chronic respiratory failure with hypercapnia Status: Acute (2) Hepatic encephalopathy Status: Acute - Assessment and Plan (Free Text) Assessment: vre sepsis / bacteremia consider ALEX change lines
--- NOTE | 2017-03-09 13:54 | RAD ---
HISTORY: Intubated. Portable study 04:31. COMPARISON: No prior. FINDINGS: LUNGS: No active pulmonary disease. PLEURA: No significant pleural effusion identified, no pneumothorax apparent. CARDIOVASCULAR: No radiographic findings to suggest acute or significant cardiovascular disease. OSSEOUS STRUCTURES: No significant abnormalities. VISUALIZED UPPER ABDOMEN: Normal. OTHER FINDINGS: Stable, satisfactory position ventilatory, vascular and nasogastric apparatus. IMPRESSION: No significant interval change compared to the prior examination(s).
[2017-03-09 22:27] LABS: ABG ALLEN TEST YES; ARTERIAL BLOOD GAS HCO3 19.4 mmol/L (21-28); ARTERIAL BLOOD GAS HEMOGLOBIN 11.3 g/dL (11.7-17.4); ARTERIAL BLOOD GAS O2 CAPACITY 15.3 mL/dL (16-24); ARTERIAL BLOOD GAS O2 CONTENT 15.2 ML/dL (15-23); ARTERIAL BLOOD GAS O2 SAT 99.1 % (95-98); ARTERIAL BLOOD GAS PCO2 64 mm/Hg (35-45); ARTERIAL BLOOD GAS PH 7.15 (7.35-7.45); ARTERIAL BLOOD GAS PO2 96 mm/Hg (80-100); ARTERIAL BLOOD GAS TCO2 24.3 mmol/L (22-28)
[2017-03-10] MEDS: Albuterol-Ipratrop 3 mg / 0.5 (3 ml) UD INH SCH ×7 (00:21→23:18)
[2017-03-10 00:55] LABS: ABG ALLEN TEST YES; ARTERIAL BLOOD GAS HCO3 22.6 mmol/L (21-28); ARTERIAL BLOOD GAS HEMOGLOBIN 10.5 g/dL (11.7-17.4); ARTERIAL BLOOD GAS O2 CAPACITY 14.3 mL/dL (16-24); ARTERIAL BLOOD GAS O2 CONTENT 14.1 ML/dL (15-23); ARTERIAL BLOOD GAS O2 SAT 98.9 % (95-98); ARTERIAL BLOOD GAS PCO2 32 mm/Hg (35-45); ARTERIAL BLOOD GAS PH 7.42 (7.35-7.45); ARTERIAL BLOOD GAS PO2 76 mm/Hg (80-100); ARTERIAL BLOOD GAS TCO2 21.8 mmol/L (22-28)
[2017-03-10] MEDS: Aztreonam 2 GM in Sodium Chloride 0.9% 100 ML IVPB SCH ×3 (01:29→16:38)
[2017-03-10] MEDS: MethylPREDNISolone 40 mg Vial IVP SCH ×3 (01:30→16:40)
[2017-03-10 04:56] LABS: ABG ALLEN TEST YES; ARTERIAL BLOOD GAS HEMOGLOBIN 10.9 g/dL (11.7-17.4); ARTERIAL BLOOD GAS O2 CAPACITY 14.8 mL/dL (16-24); ARTERIAL BLOOD GAS O2 CONTENT 14.5 ML/dL (15-23); ARTERIAL BLOOD GAS O2 SAT 97.8 % (95-98); ARTERIAL BLOOD GAS PCO2 43 mm/Hg (35-45); ARTERIAL BLOOD GAS PH 7.28 (7.35-7.45); ARTERIAL BLOOD GAS PO2 80 mm/Hg (80-100); ARTERIAL BLOOD GAS TCO2 21.5 mmol/L (22-28)
[2017-03-10 05:44] LABS: HEMOGLOBIN 10.3 g/dL (12.0-16.0); MEAN CELL VOLUME 102.9 fl (81.0-99.0); MEAN CORPUSCULAR HEMOGLOBIN 32.1 pg (27.0-31.0); MEAN CORPUSCULAR HGB CONC 31.3 g/dL (33.0-37.0); RBC 3.21 Mil/uL (3.80-5.20); RED CELL DISTRIBUTION WIDTH 17.7 % (11.5-14.5); WHITE BLOOD COUNT 23.3 K/uL (4.8-10.8)
[2017-03-10] MEDS: metroNIDAZOLE 500mg/100ml NS 100 ML IVPB SCH ×3 (05:59→22:33)
[2017-03-10 06:26] LABS: CALCIUM 9.8 mg/dL (8.4-10.2); MAGNESIUM 1.9 MG/DL (1.6-2.3)
[2017-03-10] MEDS: Pantoprazole 40 mg EC Tab PO SCH (08:22)
[2017-03-10] MEDS: Multivitamin With Minerals Tab PO SCH (08:22)
[2017-03-10] MEDS: Fluconazole IV 200mg/100 ml NS 100 ML IVPB SCH (08:23)
[2017-03-10] MEDS: Lidocaine 5% Patch TD SCH (08:24)
[2017-03-10] MEDS: Linezolid 600 mg in D5W 300 ml 600 MG/300 ML BAG IVPB SCH ×2 (08:24→21:10)
--- NOTE | 2017-03-10 08:41 | CP.PCM.PN ---
Subjective - Date & Time of Evaluation Date of Evaluation: 03/10/17 Time of Evaluation: 07:15 - Subjective Subjective: Patient seen and examined at bedside with attending Dr. Lopez. No overnight events. Intubated, sedated. Objective - Vital Signs/Intake and Output Vital Signs (last 24 hours): Temp Pulse Resp BP Pulse Ox 98.1 F 108 H 18 138/78 95 03/10/17 08:00 03/10/17 08:00 03/10/17 08:00 03/10/17 08:00 03/10/17 08:00 Intake and Output: 03/10/17 03/10/17 06:59 18:59 Intake Total 1100 Output Total 200 Balance 900 - Medications Medications: Current Medications Acetaminophen (Tylenol 325mg Tab) 650 mg PO Q6H PRN PRN Reason: Pain, Mild (1-3) Acetaminophen (Tylenol 325mg Tab) 650 mg PO Q6H PRN PRN Reason: Fever >100.4 F Albuterol/Ipratropium (Duoneb 3 Mg/0.5 Mg (3 Ml) Ud) 3 ml INH RQ4 [facility] Last Admin: 03/10/17 08:16 Dose: 3 ml Folic Acid (Folic Acid) 1 mg PO DAILY [facility] Last Admin: 03/10/17 08:22 Dose: 1 mg Furosemide (Lasix) 40 mg IVP DAILY [facility] Last Admin: 03/09/17 12:15 Dose: 40 mg Fluconazole (Diflucan Iv 200 Mg/100 Ml Ns) 100 mls @ 100 mls/hr IVPB DAILY [facility] Last Admin: 03/10/17 08:23 Dose: 100 mls/hr Aztreonam 2 gm/ Sodium (Chloride) 100 mls @ 100 mls/hr IVPB Q8 [facility] PRN Reason: Protocol Last Admin: 03/10/17 08:23 Dose: 100 mls/hr Metronidazole (Flagyl 500mg/100ml Ns) 100 mls @ 100 mls/hr IVPB Q8H [facility] PRN Reason: Protocol Last Admin: 03/10/17 05:59 Dose: 100 mls/hr Linezolid (Zyvox 600mg/300ml D5w) 600 mg in 300 mls @ 300 mls/hr IVPB Q12 [facility] PRN Reason: Protocol Last Admin: 03/10/17 08:24 Dose: 300 mls/hr Lactulose (Enulose) 20 gm PO QID [facility] Last Admin: 03/09/17 23:44 Dose: 20 gm Lidocaine (Lidoderm) 1 ea TD DAILY [facility] Last Admin: 03/10/17 08:24 Dose: 1 ea Lorazepam (Ativan) 2 mg IVP Q6 PRN PRN Reason: Agitation Methylprednisolone (Solu-Medrol) 40 mg IVP Q8 [facility] Last Admin: 03/10/17 01:30 Dose: 40 mg Multivitamins/Minerals (Therapeutic-M Tab) 1 tab PO DAILY [facility] Last Admin: 03/10/17 08:22 Dose: 1 tab Nystatin (Mycostatin Cream) 1 applic TOP TID [facility] Last Admin: 03/09/17 17:26 Dose: 1 applic Nystatin (Nystop Topical Powder) 1 applic TOP QID [facility] Last Admin: 03/09/17 22:42 Dose: 1 applic Pantoprazole Sodium (Protonix Ec Tab) 40 mg PO DAILY [facility] Last Admin: 03/10/17 08:22 Dose: 40 mg Rifaximin (Xifaxan) 550 mg PO BID [facility] PRN Reason: Protocol Last Admin: 03/10/17 08:23 Dose: 550 mg Spironolactone (Aldactone) 50 mg NG DAILY [facility] Last Admin: 03/10/17 08:22 Dose: 50 mg Thiamine HCl (Vitamin B1 Tab) 100 mg PO DAILY [facility] Last Admin: 03/10/17 08:22 Dose: 100 mg - Labs Labs: 03/10/17 05:15 03/10/17 05:15 PT 20.1 Seconds (9.8-13.1) H 03/09/17 11:15 INR 1.8 (0.9-1.2) H 03/09/17 11:15 APTT 36.8 Seconds (25.6-37.1) 03/09/17 11:15 - Constitutional Appears: Chronically Ill (lethargic, moves head and neck during physical exam) - Eye Exam Pupil Exam: PERRL - ENT Exam ENT Exam: Mucous Membranes Moist - Respiratory Exam Additional comments: intubated, on mechanical ventilation - Cardiovascular Exam Cardiovascular Exam: Tachycardia, +S1, +S2 - GI/Abdominal Exam GI & Abdominal Exam: Distended - Extremities Exam Extremities Exam: Normal Capillary Refill, Pedal Edema - Neurological Exam Additional comments: sedated Assessment and Plan - Assessment and Plan (Free Text) Assessment: 1. Acute respiratory failure -secondary to hepatic encephalopathy and respiratory distress -admitted ICU -continue Ventilator weaning protocol with goal of future extubation -Pulmonary consult appreciated: continue attempts to extubate, continue duonebs , steroids, consider abdominal paracentesis prior to extubation 2. Bacteremia -03/06/17: Blood culture positive for vancomycin resistant E. faecium -RUE PICC recently placed -afebrile, Leukocytosis trending down -ID consult appreciated: antibiotics switched to Zyvox/Flagyl/Aztreonam ; change all line, send pt for CT chest/abd/pelvis once stable -repeat blood culture 03/08/16: negative x 24hrs 3. Hepatic encephalopathy -GI Consult appreciated: continue with lactulose, rifaximin; -ammonia level mildly elevated at 68 umo/L 4. UTI -VRE, Ecoli resistant to levaquin -ID consult appreciated: antibiotics adjusted as above -03/06/17: repeat urine cx no growth 5. COPD exacerbation -duoneb -solumedrol -Secretary Specialist consult appreciated: management as above 6. Bilateral pneumonia -03/06/17: sputum culture: E. Coli -03/08/17 and 03/10/16: repeat CXR: no definite or acute infiltrate -CT abd/pelvis 03/07/17: bilateral lower lobe infiltrates -s/p levaquin, discontinued Tygacil -ID management as above 7. Abdominal pain -03/10/16: abd xray finding consistent with ascites -XR Abd possible illeus vs small bowel obstruction -NG tube in place -03/07/17: CT abd and pelvis w/contrast : positive for moderate abdominal and pelvic ascites; no evidence of bowel obstruction -Surgery consult appreciated: No surgical intervention at this time -GI consult appreciated-signed off on case, ascites amount minimal at last evaluation -will consider abd US and IR consult for paracentesis 8. Cirrhosis -03/07/17: CT abd and pelvis w/contrast : positive for moderate abdominal and pelvic ascites; no evidence of bowel obstruction -albumin trending down-2.5 g/dL , will consider administering albumin 9. DVT Prophylaxis -SCD's 10. GI prophylaxis -Pantoprazole 40 mg IV QD
--- NOTE | 2017-03-10 09:20 | RAD ---
HISTORY: intubated COMPARISON: 03/09/2017 FINDINGS: LUNGS: No active pulmonary disease. PLEURA: No significant pleural effusion identified, no pneumothorax apparent. CARDIOVASCULAR: ET tube, NG tube and right PICC catheter grossly unchanged. OSSEOUS STRUCTURES: No significant abnormalities. VISUALIZED UPPER ABDOMEN: Normal. OTHER FINDINGS: None. IMPRESSION: No active disease.
--- NOTE | 2017-03-10 10:56 | CP.PCM.PN ---
Subjective - Date & Time of Evaluation Date of Evaluation: 03/10/17 Time of Evaluation: 10:56 - Subjective Subjective: STILL INTUBATED AND BEING VENTILATED Objective - Vital Signs/Intake and Output Vital Signs (last 24 hours): Temp Pulse Resp BP Pulse Ox 98.1 F 97 H 16 112/68 98 03/10/17 08:00 03/10/17 09:50 03/10/17 09:50 03/10/17 09:50 03/10/17 09:50 Intake and Output: 03/10/17 03/10/17 06:59 18:59 Intake Total 1100 Output Total 200 Balance 900 - Medications Medications: Current Medications Acetaminophen (Tylenol 325mg Tab) 650 mg PO Q6H PRN PRN Reason: Pain, Mild (1-3) Acetaminophen (Tylenol 325mg Tab) 650 mg PO Q6H PRN PRN Reason: Fever >100.4 F Albuterol/Ipratropium (Duoneb 3 Mg/0.5 Mg (3 Ml) Ud) 3 ml INH RQ4 [facility] Last Admin: 03/10/17 08:16 Dose: 3 ml Folic Acid (Folic Acid) 1 mg PO DAILY [facility] Last Admin: 03/10/17 08:22 Dose: 1 mg Furosemide (Lasix) 40 mg IVP DAILY [facility] Last Admin: 03/09/17 12:15 Dose: 40 mg Fluconazole (Diflucan Iv 200 Mg/100 Ml Ns) 100 mls @ 100 mls/hr IVPB DAILY [facility] Last Admin: 03/10/17 08:23 Dose: 100 mls/hr Aztreonam 2 gm/ Sodium (Chloride) 100 mls @ 100 mls/hr IVPB Q8 [facility] PRN Reason: Protocol Last Admin: 03/10/17 08:23 Dose: 100 mls/hr Metronidazole (Flagyl 500mg/100ml Ns) 100 mls @ 100 mls/hr IVPB Q8H [facility] PRN Reason: Protocol Last Admin: 03/10/17 05:59 Dose: 100 mls/hr Linezolid (Zyvox 600mg/300ml D5w) 600 mg in 300 mls @ 300 mls/hr IVPB Q12 [facility] PRN Reason: Protocol Last Admin: 03/10/17 08:24 Dose: 300 mls/hr Lactulose (Enulose) 20 gm PO QID [facility] Last Admin: 03/09/17 23:44 Dose: 20 gm Lidocaine (Lidoderm) 1 ea TD DAILY [facility] Last Admin: 03/10/17 08:24 Dose: 1 ea Lorazepam (Ativan) 2 mg IVP Q6 PRN PRN Reason: Agitation Methylprednisolone (Solu-Medrol) 40 mg IVP Q8 [facility] Last Admin: 03/10/17 01:30 Dose: 40 mg Multivitamins/Minerals (Therapeutic-M Tab) 1 tab PO DAILY [facility] Last Admin: 03/10/17 08:22 Dose: 1 tab Nystatin (Mycostatin Cream) 1 applic TOP TID [facility] Last Admin: 03/09/17 17:26 Dose: 1 applic Nystatin (Nystop Topical Powder) 1 applic TOP QID [facility] Last Admin: 03/09/17 22:42 Dose: 1 applic Pantoprazole Sodium (Protonix Ec Tab) 40 mg PO DAILY [facility] Last Admin: 03/10/17 08:22 Dose: 40 mg Rifaximin (Xifaxan) 550 mg PO BID [facility] PRN Reason: Protocol Last Admin: 03/10/17 08:23 Dose: 550 mg Spironolactone (Aldactone) 50 mg NG DAILY [facility] Last Admin: 03/10/17 08:22 Dose: 50 mg Thiamine HCl (Vitamin B1 Tab) 100 mg PO DAILY [facility] Last Admin: 03/10/17 08:22 Dose: 100 mg - Labs Labs: 03/10/17 05:15 03/10/17 05:15 PT 20.1 Seconds (9.8-13.1) H 03/09/17 11:15 INR 1.8 (0.9-1.2) H 03/09/17 11:15 APTT 36.8 Seconds (25.6-37.1) 03/09/17 11:15 - Constitutional Appears: Chronically Ill - Head Exam Head Exam: ATRAUMATIC, NORMAL INSPECTION, NORMOCEPHALIC - Eye Exam Eye Exam: EOMI, Normal appearance, PERRL Pupil Exam: NORMAL ACCOMODATION, PERRL - ENT Exam ENT Exam: Mucous Membranes Moist, Normal Exam - Neck Exam Neck Exam: Full ROM, Normal Inspection. absent: Lymphadenopathy - Respiratory Exam Respiratory Exam: Clear to Ausculation Bilateral - Cardiovascular Exam Cardiovascular Exam: REGULAR RHYTHM, +S1, +S2. absent: Murmur - GI/Abdominal Exam GI & Abdominal Exam: Distended, Soft, Normal Bowel Sounds. absent: Tenderness - Rectal Exam Rectal Exam: NORMAL INSPECTION - Extremities Exam Extremities Exam: absent: Joint Swelling, Pedal Edema - Back Exam Back Exam: NORMAL INSPECTION - Psychiatric Exam Psychiatric exam: Normal Affect, Normal Mood - Skin Skin Exam: Dry, Intact, Normal Color, Warm Assessment and Plan - Assessment and Plan (Free Text) Assessment: ACUTE RESP FAILURE ASCITES Plan: CONTINUE PRESENT RX CONTINUE EXTUBATION ATTEMPTS
--- NOTE | 2017-03-10 16:04 | CP.CCUPN ---
<Mehul Deleon - Last Filed: 03/10/17 16:38> CCU Subjective - Physician Review Subjective (Free Text): 03/10/17 16:04 Pt. seen at bedside this afternoon. Overnight events reviewed. Pt. currently on mechanical ventilation and sedated. Fentanyl was discontinued yesterday. On Ativan and Morphine for agitation. OG tube and soria in place. Critical Care Time Spent (in minutes): 45 CCU Objective - Vital Signs / Intake & Output Vital Signs (Last 4 hours): Vital Signs Pulse Resp BP Pulse Ox 03/10/17 14:00 104 H 17 124/82 96 03/10/17 13:00 105 H 17 118/77 97 Intake and Output (Last 8hrs): Intake & Output 03/10/17 03/10/17 03/10/17 06:59 14:59 22:59 Intake Total 636 500 Output Total 200 Balance 436 500 Intake: IV 16 Intake, Piggyback 300 500 Tube Feeding 320 Output: Urine 150 Urethral (Soria) 150 Stool 50 - Physical Exam Physical Exam Limitations: Positive for: Other (Lethargic) Pupils: Positive for: PERRL, Sluggish Conjunctiva: Positive for: Icteric Mouth: Positive for: Moist Mucous Membranes Neck: Positive for: Trachea Midline Respiratory/Chest: Positive for: Other (Pt. on mechanical ventilation ) Cardiovascular: Positive for: Regular Rate and Rhythm, Normal S1, S2 Abdomen: Positive for: Distention, Peritoneal Signs (Pain on palpation of abdomen, abdomen distension noted identicle to yesterday ). Negative for: Tenderness Upper Extremity: Positive for: NORMAL PULSES. Negative for: Cyanosis, Edema Lower Extremity: Positive for: Edema, NORMAL PULSES, Capillary Refill < 2 s. Negative for: CALF TENDERNESS Neurological: Positive for: Other (Lethargic) Skin: Positive for: Warm. Negative for: Rashes Psychiatric: Negative for: Alert, Oriented x 3, Normal Insight - Medications Active Medications: Active Medications Generic Name Dose Route Start Last Admin Trade Name Freq PRN Reason Stop Dose Admin Acetaminophen 650 mg 03/02/17 20:39 Tylenol 325mg Tab PO Q6H PRN Pain, Mild (1-3) Acetaminophen 650 mg 03/02/17 20:39 Tylenol 325mg Tab PO Q6H PRN Fever >100.4 F Albuterol/Ipratropium 3 ml 03/03/17 00:00 03/10/17 12:01 Duoneb 3 Mg/0.5 Mg (3 Ml) Ud INH 3 ml RQ4 [facility] Administration Folic Acid 1 mg 03/03/17 09:00 03/10/17 08:22 Folic Acid PO 1 mg DAILY [facility] Administration Furosemide 40 mg 03/09/17 11:45 03/10/17 08:55 Lasix IVP 40 mg DAILY [facility] Administration Fluconazole 100 mls @ 100 mls/hr 03/06/17 12:30 03/10/17 08:23 Diflucan Iv 200 Mg/100 Ml Ns IVPB 100 mls/hr DAILY [facility] Administration Aztreonam 2 gm/ Sodium 100 mls @ 100 mls/hr 03/07/17 15:00 03/10/17 08:23 Chloride IVPB 100 mls/hr Q8 [facility] Administration Protocol Metronidazole 100 mls @ 100 mls/hr 03/07/17 15:00 03/10/17 15:00 Flagyl 500mg/100ml Ns IVPB 100 mls/hr Q8H [facility] Administration Protocol Linezolid 600 mg in 300 mls @ 300 mls/hr 03/08/17 21:00 03/10/17 08:24 Zyvox 600mg/300ml D5w IVPB 300 mls/hr Q12 [facility] Administration Protocol Lactulose 20 gm 03/02/17 22:00 03/10/17 15:01 Enulose PO 20 gm QID [facility] Administration Lorazepam 2 mg 03/09/17 11:03 03/10/17 08:12 Ativan IVP 2 mg Q6 PRN Administration Agitation Methylprednisolone 40 mg 03/03/17 01:00 03/10/17 08:50 Solu-Medrol IVP 40 mg Q8 [facility] Administration Morphine Sulfate 4 mg 03/10/17 13:30 03/10/17 14:58 Morphine IVP 4 mg Q6 PRN Administration Agitation Multivitamins/Minerals 1 tab 03/03/17 09:00 03/10/17 08:22 Therapeutic-M Tab PO 1 tab DAILY [facility] Administration Nystatin 1 applic 03/03/17 09:00 03/10/17 14:59 Mycostatin Cream TOP 1 applic TID [facility] Administration Nystatin 1 applic 03/02/17 22:00 03/10/17 14:58 Nystop Topical Powder TOP 1 applic QID [facility] Administration Pantoprazole Sodium 40 mg 03/10/17 09:00 03/10/17 08:22 Protonix Ec Tab PO 40 mg DAILY [facility] Administration Rifaximin 550 mg 03/03/17 09:00 03/10/17 08:23 Xifaxan PO 550 mg BID [facility] Administration Protocol Spironolactone 50 mg 03/09/17 21:00 03/10/17 08:22 Aldactone NG 50 mg DAILY [facility] Administration Thiamine HCl 100 mg 03/03/17 09:00 03/10/17 08:22 Vitamin B1 Tab PO 100 mg DAILY [facility] Administration - Patient Studies Lab Studies: Microbiology Studies 03/08/17 19:00 Blood Culture - Preliminary Blood NO GROWTH AFTER 24 HOURS 03/06/17 16:30 S.aureus & Coag-Neg Staph PNA FISH - Final Blood Blood Culture - Final Vancomycin Resistant E.faecium Gram Stain - Final Lab Studies 03/10/17 03/10/17 03/10/17 Range/Units 05:15 05:15 05:15 WBC 23.3 H (4.8-10.8) K/uL RBC 3.21 L (3.80-5.20) Mil/uL Hgb 10.3 L (12.0-16.0) g/dL Hct 33.0 L (34.0-47.0) % MCV 102.9 H (81.0-99.0) fl MCH 32.1 H (27.0-31.0) pg MCHC 31.3 L (33.0-37.0) g/dL RDW 17.7 H (11.5-14.5) % Plt Count 83 L (130-400) K/uL pCO2 (35-45) mm/Hg pO2 (80-100) mm/Hg HCO3 (21-28) mmol/L ABG pH (7.35-7.45) ABG Total CO2 (22-28) mmol/L ABG O2 Saturation (95-98) % ABG O2 Content (15-23) ML/dL ABG Base Excess (-2.0-3.0) mmol/L ABG Hemoglobin (11.7-17.4) g/dL ABG Carboxyhemoglobin (0.5-1.5) % POC ABG HHb (Measured) (0.0-5.0) % ABG Methemoglobin (0.0-3.0) % ABG O2 Capacity (16-24) mL/dL Dick Test A-a O2 Difference mm/Hg Hgb O2 Saturation (95.0-98.0) % Vent Mode Mechanical Rate FiO2 % Tidal Volume PEEP Crit Value Called To Crit Value Called By Crit Value Read Back Blood Gas Notified Time Sodium 140 (132-148) mmol/l Potassium 4.2 (3.6-5.0) MMOL/L Chloride 106 (98-107) mmol/L Carbon Dioxide 21 L (22-30) mmol/L Anion Gap 17 (10-20) BUN 76 H (7-17) mg/dl Creatinine 1.2 (0.7-1.2) mg/dl Est GFR ( Amer) 57 Est GFR (Non-Af Amer) 47 Random Glucose 179 H (65-105) mg/dL Calcium 9.8 (8.4-10.2) mg/dL Phosphorus 5.5 H (2.5-4.5) mg/dl Magnesium 1.9 (1.6-2.3) MG/DL Procalcitonin 1.52 H (0.19-0.49) NG/ML C. difficile Tox B Gene (Not Detected) 03/10/17 03/10/17 03/09/17 Range/Units 04:49 00:46 22:18 WBC (4.8-10.8) K/uL RBC (3.80-5.20) Mil/uL Hgb (12.0-16.0) g/dL Hct (34.0-47.0) % MCV (81.0-99.0) fl MCH (27.0-31.0) pg MCHC (33.0-37.0) g/dL RDW (11.5-14.5) % Plt Count (130-400) K/uL pCO2 43 32 L 64 H (35-45) mm/Hg pO2 80 76 L 96 (80-100) mm/Hg HCO3 20.0 L 22.6 19.4 L (21-28) mmol/L ABG pH 7.28 L 7.42 7.15 L* (7.35-7.45) ABG Total CO2 21.5 L 21.8 L 24.3 (22-28) mmol/L ABG O2 Saturation 97.8 98.9 H 99.1 H (95-98) % ABG O2 Content 14.5 L 14.1 L 15.2 (15-23) ML/dL ABG Base Excess -6.3 L -3.0 L -7.1 L (-2.0-3.0) mmol/L ABG Hemoglobin 10.9 L 10.5 L 11.3 L (11.7-17.4) g/dL ABG Carboxyhemoglobin 2.1 H 2.0 H 2.3 H (0.5-1.5) % POC ABG HHb (Measured) 2.1 1.1 0.9 (0.0-5.0) % ABG Methemoglobin 1.8 1.6 1.7 (0.0-3.0) % ABG O2 Capacity 14.8 L 14.3 L 15.3 L (16-24) mL/dL Dick Test Yes Yes Yes A-a O2 Difference 151.0 169.0 109.0 mm/Hg Hgb O2 Saturation 94.1 L 95.3 95.1 (95.0-98.0) % Vent Mode A/c A/c Prvc/ac Mechanical Rate 16 18 10 FiO2 40.0 40.0 40.0 % Tidal Volume 400 500 400 PEEP 5 5 5 Crit Value Called To Dr luis menjivar Crit Value Called By Rt Crit Value Read Back Y Blood Gas Notified Time 2226 Sodium (132-148) mmol/l Potassium (3.6-5.0) MMOL/L Chloride (98-107) mmol/L Carbon Dioxide (22-30) mmol/L Anion Gap (10-20) BUN (7-17) mg/dl Creatinine (0.7-1.2) mg/dl Est GFR ( Amer) Est GFR (Non-Af Amer) Random Glucose (65-105) mg/dL Calcium (8.4-10.2) mg/dL Phosphorus (2.5-4.5) mg/dl Magnesium (1.6-2.3) MG/DL Procalcitonin (0.19-0.49) NG/ML C. difficile Tox B Gene (Not Detected) 03/07/17 Range/Units 08:43 WBC (4.8-10.8) K/uL RBC (3.80-5.20) Mil/uL Hgb (12.0-16.0) g/dL Hct (34.0-47.0) % MCV (81.0-99.0) fl MCH (27.0-31.0) pg MCHC (33.0-37.0) g/dL RDW (11.5-14.5) % Plt Count (130-400) K/uL pCO2 (35-45) mm/Hg pO2 (80-100) mm/Hg HCO3 (21-28) mmol/L ABG pH (7.35-7.45) ABG Total CO2 (22-28) mmol/L ABG O2 Saturation (95-98) % ABG O2 Content (15-23) ML/dL ABG Base Excess (-2.0-3.0) mmol/L ABG Hemoglobin (11.7-17.4) g/dL ABG Carboxyhemoglobin (0.5-1.5) % POC ABG HHb (Measured) (0.0-5.0) % ABG Methemoglobin (0.0-3.0) % ABG O2 Capacity (16-24) mL/dL Dick Test A-a O2 Difference mm/Hg Hgb O2 Saturation (95.0-98.0) % Vent Mode Mechanical Rate FiO2 % Tidal Volume PEEP Crit Value Called To Crit Value Called By Crit Value Read Back Blood Gas Notified Time Sodium (132-148) mmol/l Potassium (3.6-5.0) MMOL/L Chloride (98-107) mmol/L Carbon Dioxide (22-30) mmol/L Anion Gap (10-20) BUN (7-17) mg/dl Creatinine (0.7-1.2) mg/dl Est GFR ( Amer) Est GFR (Non-Af Amer) Random Glucose (65-105) mg/dL Calcium (8.4-10.2) mg/dL Phosphorus (2.5-4.5) mg/dl Magnesium (1.6-2.3) MG/DL Procalcitonin (0.19-0.49) NG/ML C. difficile Tox B Gene Not detected (Not Detected) Laboratory Results - last 24 hr 03/07/17 03/09/17 03/10/17 08:43 22:18 00:46 WBC RBC Hgb Hct MCV MCH MCHC RDW Plt Count pCO2 64 H 32 L pO2 96 76 L HCO3 19.4 L 22.6 ABG pH 7.15 L* 7.42 ABG Total CO2 24.3 21.8 L ABG O2 Saturation 99.1 H 98.9 H ABG O2 Content 15.2 14.1 L ABG Base Excess -7.1 L -3.0 L ABG Hemoglobin 11.3 L 10.5 L ABG Carboxyhemoglobin 2.3 H 2.0 H POC ABG HHb (Measured) 0.9 1.1 ABG Methemoglobin 1.7 1.6 ABG O2 Capacity 15.3 L 14.3 L Dick Test Yes Yes A-a O2 Difference 109.0 169.0 Hgb O2 Saturation 95.1 95.3 Vent Mode Prvc/ac A/c Mechanical Rate 10 18 FiO2 40.0 40.0 Tidal Volume 400 500 PEEP 5 5 Crit Value Called To Dr luis menjivar Crit Value Called By Rt Crit Value Read Back Y Blood Gas Notified Time 2226 Sodium Potassium Chloride Carbon Dioxide Anion Gap BUN Creatinine Est GFR ( Amer) Est GFR (Non-Af Amer) Random Glucose Calcium Phosphorus Magnesium Procalcitonin C. difficile Tox B Gene Not detected 03/10/17 03/10/17 03/10/17 04:49 05:15 05:15 WBC RBC Hgb Hct MCV MCH MCHC RDW Plt Count pCO2 43 pO2 80 HCO3 20.0 L ABG pH 7.28 L ABG Total CO2 21.5 L ABG O2 Saturation 97.8 ABG O2 Content 14.5 L ABG Base Excess -6.3 L ABG Hemoglobin 10.9 L ABG Carboxyhemoglobin 2.1 H POC ABG HHb (Measured) 2.1 ABG Methemoglobin 1.8 ABG O2 Capacity 14.8 L Dick Test Yes A-a O2 Difference 151.0 Hgb O2 Saturation 94.1 L Vent Mode A/c Mechanical Rate 16 FiO2 40.0 Tidal Volume 400 PEEP 5 Crit Value Called To Crit Value Called By Crit Value Read Back Blood Gas Notified Time Sodium 140 Potassium 4.2 Chloride 106 Carbon Dioxide 21 L Anion Gap 17 BUN 76 H Creatinine 1.2 Est GFR ( Amer) 57 Est GFR (Non-Af Amer) 47 Random Glucose 179 H Calcium 9.8 Phosphorus 5.5 H Magnesium 1.9 Procalcitonin 1.52 H C. difficile Tox B Gene 03/10/17 05:15 WBC 23.3 H RBC 3.21 L Hgb 10.3 L Hct 33.0 L MCV 102.9 H MCH 32.1 H MCHC 31.3 L RDW 17.7 H Plt Count 83 L pCO2 pO2 HCO3 ABG pH ABG Total CO2 ABG O2 Saturation ABG O2 Content ABG Base Excess ABG Hemoglobin ABG Carboxyhemoglobin POC ABG HHb (Measured) ABG Methemoglobin ABG O2 Capacity Dick Test A-a O2 Difference Hgb O2 Saturation Vent Mode Mechanical Rate FiO2 Tidal Volume PEEP Crit Value Called To Crit Value Called By Crit Value Read Back Blood Gas Notified Time Sodium Potassium Chloride Carbon Dioxide Anion Gap BUN Creatinine Est GFR ( Amer) Est GFR (Non-Af Amer) Random Glucose Calcium Phosphorus Magnesium Procalcitonin C. difficile Tox B Gene Review of Systems - Review of Systems Review of Systems: Unable to obtain due to patient being lethargic. Critical Care Progress Note - Ventilator Checklist Head of Bed 30 Degrees: Yes Daily Sedation Vacation: Yes Daily Assessment of Readiness to Wean: Yes Daily Spontaneous Breathing Trial: Yes PUD Prophalyxis: Yes DVT Prophylaxis: Yes Oral Care with Chlorhexidine Gluconate {CHG}: Yes - Vent Settings MODE:: ASSIST CONTROL TIDAL VOLUME:: 400 RESP RATE:: 14 FIO2:: 40 PEEP:: 5 Assessment/Plan - Assessment and Plan (Free Text) Assessment: 51 y.o. female in ICU currently on mechanical ventilation admitted for sepsis and COPD exacerbation now with Thrombocytopenia and continued abdominal pain on physical exam of unclear etiology having failed a weaning trial. 1-Thrombocytopenia- of unclear etiology- Platelets today 83 a- Pt. curently on SCD not on any other anticoagulation b- Will continue to monitor with repeat CBC in the a.m. c- Will consider transfusion of platelets if Platelets drop more than 50 also for possible planned parecentecis will need platelet transfusion d- Will order Fibrinogen level for the a.m. for evaluation of DIC 2- Elevated Cretinine in the setting of elevated BUN a- Creatinine today 1.2 up from 1.0 yesterday b- Continue to monitor with BMP c- Will consider Albumin if creatinine continues to trend up and increase lasix from 40 Qd to BID and continue Aldactone 50mg daily 3- Abdominal pain of unclear etiology likely due to ascities due to liver cirrhosis- afebrile last 24 hours a- Flat plate poor quality- Will order abdominal U/S for better evaluation of ascities b- Will consider therapeutic vs. diagnostic bedside Paracentecis 4- Sepsis- Improving WBC count trending downward a- BCX positive for E. Facalis sensitive to Linazolid, currently on Linazolid will continue with Linazolid b- BCx positive for E. Coli sensitive to Ertapenem, currently on Aztreonam will continue Aztreonam 5- COPD exacerbation- Stable a- Continue Duonebs Q4 FOREST b- Continue Solumedrol 40mg Q8 c- Currently on mechanical ventilation- will consider Tracheotomy if fail to wean off of mechanical ventilation 6- Pneumonia- Sputum cultures show E.coli - sensitive to Linazolid a- Continue with Linazolid and Aztreonam b- I.D. input appreciated c- CT chest on 03/07/17 shows bilateral lower lobe infiltrate 7- Mechanical ventilation a- Will stop Fentanyl drip- Ativan and Morphine for agitation and pain control b- Adjusted vent settings to A/C/16/400/5/40% c- Repeat ABG in the a.m. 8- Hepatic Encephalopathy a- ammonia level- 63 on 03/10/16 b- Will continue Rifaxamine and Lactulose 9- Diet a- Continue OG tube feedings 10- GI prophylaxis a- Protonix 40mg IVP daily 11- DVT prophylaxis a- SCD given pt. has liver cirrhosis and underlying coagulopathy 12- Code status a- Full code <Mario Grewal - Last Filed: 03/10/17 17:07> Assessment/Plan - Assessment and Plan (Free Text) Plan: Attestation: Patient seen and examined at the bedside with Resident Dr. Izabella Deleon; and I agree with his outline of plans and management documented above as discussed on AM rounds reflecting my review of all applicable clinical data, and participation in the care of the patient throughout the day in ICU; March 10, 2017.
[2017-03-11] MEDS: MethylPREDNISolone 40 mg Vial IVP SCH ×3 (00:50→17:50)
[2017-03-11] MEDS: Aztreonam 2 GM in Sodium Chloride 0.9% 100 ML IVPB SCH ×2 (00:51→09:21)
[2017-03-11] MEDS: Albuterol-Ipratrop 3 mg / 0.5 (3 ml) UD INH SCH ×6 (04:58→23:30)
[2017-03-11 05:06] LABS: ABG ALLEN TEST YES; ARTERIAL BLOOD GAS HEMOGLOBIN 12.9 g/dL (11.7-17.4); ARTERIAL BLOOD GAS O2 CAPACITY 17.7 mL/dL (16-24); ARTERIAL BLOOD GAS O2 CONTENT 17.5 ML/dL (15-23); ARTERIAL BLOOD GAS O2 SAT 99.1 % (95-98); ARTERIAL BLOOD GAS PCO2 40 mm/Hg (35-45); ARTERIAL BLOOD GAS PH 7.13 (7.35-7.45); ARTERIAL BLOOD GAS PO2 102 mm/Hg (80-100); ARTERIAL BLOOD GAS TCO2 14.5 mmol/L (22-28)
[2017-03-11] MEDS ORDERED: Sodium Chloride 0.9% 500 ML IV ONE ×2 (05:23→09:11)
[2017-03-11] MEDS: metroNIDAZOLE 500mg/100ml NS 100 ML IVPB SCH ×2 (06:25→15:34)
[2017-03-11 06:58] LABS: BASO # 0.1 K/uL (0.0-0.2); BASO % 0.4 % (0.0-2.0); HEMOGLOBIN 10.8 g/dL (12.0-16.0); LYMPH # 0.2 K/uL (1.0-4.3); LYMPH % 0.6 % (20.0-40.0); MEAN CELL VOLUME 104.5 fl (81.0-99.0); MEAN CORPUSCULAR HGB CONC 30.6 g/dL (33.0-37.0); MEAN PLATELET VOLUME 11.9 fl (7.2-11.7); MONO % 0.1 % (0.0-10.0); NEUT # 31.3 K/uL (1.8-7.0); NEUT % 98.9 % (50.0-75.0); PLATELET COUNT 92 K/uL (130-400); RBC 3.39 Mil/uL (3.80-5.20); RED CELL DISTRIBUTION WIDTH 17.9 % (11.5-14.5); WHITE BLOOD COUNT 31.7 K/uL (4.8-10.8)
[2017-03-11 07:11] LABS: CALCIUM 8.2 mg/dL (8.4-10.2)
--- NOTE | 2017-03-11 07:42 | CP.PCM.PN ---
Subjective - Date & Time of Evaluation Date of Evaluation: 03/11/17 Time of Evaluation: 07:40 - Subjective Subjective: Patient seen and examined at bedside with attending-Dr. Lopez. Remains intubated- mechanically ventilated, sedated. Objective - Vital Signs/Intake and Output Vital Signs (last 24 hours): Temp Pulse Resp BP Pulse Ox 98.9 F 124 H 17 95/56 L 96 03/11/17 04:00 03/11/17 06:00 03/11/17 06:00 03/11/17 06:00 03/11/17 06:00 Intake and Output: 03/11/17 03/11/17 06:59 18:59 Intake Total 1480 Output Total 25 Balance 1455 - Medications Medications: Current Medications Acetaminophen (Tylenol 325mg Tab) 650 mg PO Q6H PRN PRN Reason: Pain, Mild (1-3) Acetaminophen (Tylenol 325mg Tab) 650 mg PO Q6H PRN PRN Reason: Fever >100.4 F Albuterol/Ipratropium (Duoneb 3 Mg/0.5 Mg (3 Ml) Ud) 3 ml INH RQ4 [facility] Last Admin: 03/11/17 04:58 Dose: 3 ml Folic Acid (Folic Acid) 1 mg PO DAILY [facility] Last Admin: 03/10/17 08:22 Dose: 1 mg Furosemide (Lasix) 40 mg IVP DAILY [facility] Last Admin: 03/10/17 08:55 Dose: 40 mg Fluconazole (Diflucan Iv 200 Mg/100 Ml Ns) 100 mls @ 100 mls/hr IVPB DAILY [facility] Last Admin: 03/10/17 08:23 Dose: 100 mls/hr Aztreonam 2 gm/ Sodium (Chloride) 100 mls @ 100 mls/hr IVPB Q8 [facility] PRN Reason: Protocol Last Admin: 03/11/17 00:51 Dose: 100 mls/hr Metronidazole (Flagyl 500mg/100ml Ns) 100 mls @ 100 mls/hr IVPB Q8H [facility] PRN Reason: Protocol Last Admin: 03/11/17 06:25 Dose: 100 mls/hr Linezolid (Zyvox 600mg/300ml D5w) 600 mg in 300 mls @ 300 mls/hr IVPB Q12 [facility] PRN Reason: Protocol Last Admin: 01/04/18 21:10 Dose: 300 mls/hr Lactulose (Enulose) 20 gm PO QID [facility] Last Admin: 03/10/17 21:10 Dose: 20 gm Lorazepam (Ativan) 2 mg IVP Q6 PRN PRN Reason: Agitation Last Admin: 03/10/17 18:41 Dose: 2 mg Methylprednisolone (Solu-Medrol) 40 mg IVP Q8 [facility] Last Admin: 03/11/17 00:50 Dose: 40 mg Morphine Sulfate (Morphine) 4 mg IVP Q6 PRN PRN Reason: Agitation Last Admin: 03/10/17 21:28 Dose: 4 mg Multivitamins/Minerals (Therapeutic-M Tab) 1 tab PO DAILY [facility] Last Admin: 03/10/17 08:22 Dose: 1 tab Nystatin (Mycostatin Cream) 1 applic TOP TID [facility] Last Admin: 03/10/17 16:47 Dose: 1 applic Nystatin (Nystop Topical Powder) 1 applic TOP QID [facility] Last Admin: 03/10/17 21:11 Dose: 1 applic Pantoprazole Sodium (Protonix Ec Tab) 40 mg PO DAILY [facility] Last Admin: 03/10/17 08:22 Dose: 40 mg Rifaximin (Xifaxan) 550 mg PO BID [facility] PRN Reason: Protocol Last Admin: 03/10/17 16:40 Dose: 550 mg Spironolactone (Aldactone) 50 mg NG DAILY [facility] Last Admin: 03/10/17 08:22 Dose: 50 mg Thiamine HCl (Vitamin B1 Tab) 100 mg PO DAILY [facility] Last Admin: 03/10/17 08:22 Dose: 100 mg - Labs Labs: 03/11/17 04:00 03/11/17 04:00 PT 20.1 Seconds (9.8-13.1) H 03/09/17 11:15 INR 1.8 (0.9-1.2) H 03/09/17 11:15 APTT 36.8 Seconds (25.6-37.1) 03/09/17 11:15 - Constitutional Appears: Chronically Ill - Eye Exam Additional comments: right pupil reactive to light, left pupil not reactive to light, swollen red lower left inner eyelid - ENT Exam ENT Exam: Mucous Membranes Moist Additional comments: intubated, trachea midline - Respiratory Exam Additional comments: intubated, mechanically ventilated - Cardiovascular Exam Cardiovascular Exam: Tachycardia, +S1, +S2 - GI/Abdominal Exam GI & Abdominal Exam: Distended (worsened), Firm Additional comments: absent bowel sounds - Extremities Exam Extremities Exam: Pedal Edema (+3 bilaterally ) - Skin Skin Exam: Dry Assessment and Plan - Assessment and Plan (Free Text) Assessment: 1. Acute respiratory failure -secondary to hepatic encephalopathy and respiratory distress -admitted ICU -continue Ventilator weaning protocol with goal of future extubation -Pulmonary consult appreciated: continue attempts to extubate, continue duonebs , steroids, consider abdominal paracentesis prior to extubation 2. Bacteremia -03/06/17: Blood culture positive for vancomycin resistant E. faecium -repeat blood culture 03/08/16: gram positive cocci in chains -RUE PICC recently placed -afebrile, Leukocytosis increasing, lactate 7.9 -ID consult appreciated: antibiotics switched to Zyvox/Flagyl/Aztreonam ; change all line, send pt for CT chest/abd/pelvis once stable 3. Hepatic encephalopathy -GI Consult appreciated: continue with lactulose, rifaximin; -ammonia level mildly elevated at 68 umo/L 4. Acute Kidney Injury -acute, Creatinine increased from 1.0 to 1.8 -nephrology consult appreciated: will follow recommendations 5. COPD exacerbation -duoneb -solumedrol -Scraper Tender consult appreciated: management as above 6. Bilateral pneumonia -03/06/17: sputum culture: E. Coli -03/11/16: repeat CXR: linear atelectasis inferior left lung zone with probable fluid in the minor fissure as well -CT abd/pelvis 03/07/17: bilateral lower lobe infiltrates -s/p levaquin, discontinued Tygacil -ID management as above 7. Abdominal pain -03/10/16: abd xray finding consistent with ascites -XR Abd possible illeus vs small bowel obstruction -NG tube in place -03/07/17: CT abd and pelvis w/contrast : positive for moderate abdominal and pelvic ascites; no evidence of bowel obstruction -Surgery consult appreciated: No surgical intervention at this time -GI consult appreciated-signed off on case, ascites amount minimal at last evaluation -Abd US ordered, will consider IR consult for paracentesis pending results 8. Cirrhosis -03/07/17: CT abd and pelvis w/contrast : positive for moderate abdominal and pelvic ascites; no evidence of bowel obstruction -albumin trending down-2.5 g/dL , will consider administering albumin 9. DVT Prophylaxis -SCD's 10. GI prophylaxis -Pantoprazole 40 mg IV QD
[2017-03-11] MEDS ORDERED: Sodium Chloride 0.9% 1,000 ML IV SCH ×2 (08:00→19:30)
--- NOTE | 2017-03-11 08:22 | US ---
HISTORY: Per the technologist, referring physician requests attention to ascites COMPARISON: CT abdomen and pelvis 03/07/2017 ; 03/03/2017 TECHNIQUE: Sonographic evaluation of the right upper quadrant of the abdomen. FINDINGS: LIVER: Estimate of liver length is on these images 15 cm . Is could be underestimated. . Normal echogenicity of the liver parenchyma. No mass. No intrahepatic bile duct dilatation. GALLBLADDER: Gallbladder sludge and moderate gallbladder distention. No gallbladder wall thickening ; gallbladder wall thickness 2.8 mm within normal limits. No gross shadowing stones. COMMON BILE DUCT: Measures estimated at 7 mm mm. No stones. No dilatation. PANCREAS: Nonvisualized RIGHT KIDNEY: Not visualized not requested for assessment. Previously this was normal appearing on a 03/03/2017 ultrasound study AORTA: Not visualized previously unremarkable IVC: Not visualized previously unremarkable OTHER FINDINGS: Not visualized-previously unremarkable Pockets of ascites - anterior to liver right upper quadrant ; free fluid extending from anterior lateral into Ing posteriorly the liver on transverse imaging. Right lower quadrant pocket of fluid the bowel contents floating within it including the bowel contents the fluid surrounding this site is 6.3 cm in rounded diameter larger pocket of fluid measuring up to 8.3 cm a right lower quadrant. Midline abdominal quadrant pocket of ascitic are narrow 6 x 2.5 cm. Lobe midline abdominal pocket of fluid 13 cm wide approximately by 4.3 cm anterior-posterior of the pocket with greater depth 5.6 cm lobe midline abdomen. Left upper quadrant pocket of fluid 7.8 x 7.2 cm vascularity here noted. Left upper quadrant additional pocket of fluid approximately 5 x 7 cm. Left lower quadrant pocket of fluid estimated 10 x 3.5 cm left lower quadrant pocket of fluid estimated at 6 x 2.5 cm. Within the ascitic fluid pockets there is probable debris. Floating bowel also noted IMPRESSION: Limited exam - specific attention post requested of the a fluid pockets with image documentation. Several mild moderate fluid pockets are as outlined above Gallbladder sludge present. No gallbladder wall thickening suggested on this exam.
[2017-03-11 08:29] LABS: VENOUS BLOOD GAS PCO2 45 mmHg (40-60); VENOUS BLOOD GAS PO2 61 mm/Hg (30-55); VENOUS BLOOD PH 7.02 (7.32-7.43)
[2017-03-11] MEDS: Pantoprazole 40 mg EC Tab PO SCH (09:19)
[2017-03-11] MEDS: Multivitamin With Minerals Tab PO SCH (09:20)
[2017-03-11] MEDS: Linezolid 600 mg in D5W 300 ml 600 MG/300 ML BAG IVPB SCH (09:22)
[2017-03-11] MEDS: Fluconazole IV 200mg/100 ml NS 100 ML IVPB SCH (09:23)
[2017-03-11 09:41] LABS: ANISOCYTOSIS SLIGHT; BANDS 7 % (0-2); LYMPHOCYTE 1 % (20-50); MONOCYTE 1 % (0-10); NEUTROPHIL 91 % (42-75); OVALOCYTES SLIGHT; PLATELET ESTIMATE DECREASED (NORMAL); POIKILOCYTOSIS SLIGHT; TOTAL CELLS COUNTED 100
[2017-03-11 09:42] LABS: BURR CELLS SLIGHT; LARGE PLATELETS PRESENT
--- NOTE | 2017-03-11 09:42 | RAD ---
HISTORY: follow up COMPARISON: Portable chest 03/10/2017. FINDINGS: Endotracheal and nasogastric tubes are unchanged in position grossly as well as right PICC. LUNGS: Linear atelectasis in the mid bilateral lung zones versus fluid in the minor fissure. PLEURA: No significant pleural effusion identified, no pneumothorax apparent. CARDIOVASCULAR: Stable cardiomediastinal silhouette. No increased pulmonary vascular pattern. OSSEOUS STRUCTURES: No significant abnormalities. VISUALIZED UPPER ABDOMEN: Normal. OTHER FINDINGS: None. IMPRESSION: Linear atelectasis inferior left lung zone is seen in the interval with probable fluid in the minor fissure as well.
--- NOTE | 2017-03-11 11:12 | CP.CCUPN ---
<Mehul Deleon - Last Filed: 03/11/17 16:36> CCU Subjective - Physician Review Subjective (Free Text): 03/10/17 16:04 Pt. seen at bedside this afternoon. Overnight events reviewed. Pt. currently on mechanical ventilation but less responsive to pain compared to yesterday. 03/11/17 16:38 Critical Care Time Spent (in minutes): 45 CCU Objective - Vital Signs / Intake & Output Vital Signs (Last 4 hours): Vital Signs BP 03/11/17 09:33 99/73 L Intake and Output (Last 8hrs): Intake & Output 03/10/17 03/11/17 03/11/17 22:59 06:59 14:59 Intake Total 1140 920 Output Total 100 25 Balance 1040 895 Intake: IV 500 Intake, Piggyback 500 100 Tube Feeding 640 320 Output: Urine 100 25 Urethral (Gaffney) 100 25 - Physical Exam Head: Positive for: Atraumatic, Normocephalic Pupils: Positive for: PERRL, Sluggish Conjunctiva: Positive for: Icteric Ears: Positive for: Normal Mouth: Positive for: Moist Mucous Membranes Neck: Positive for: Trachea Midline Respiratory/Chest: Positive for: Other (Pt. on mechanical ventilation ) Cardiovascular: Positive for: Regular Rate and Rhythm, Normal S1, S2 Abdomen: Positive for: Distention, Peritoneal Signs (Pain on palpation of abdomen, abdomen distension noted identicle to yesterday ). Negative for: Tenderness Back: Negative for: CVA Tenderness Upper Extremity: Positive for: NORMAL PULSES. Negative for: Cyanosis, Edema Lower Extremity: Positive for: Edema, NORMAL PULSES, Capillary Refill < 2 s. Negative for: CALF TENDERNESS Neurological: Positive for: Other (Lethargic) Skin: Positive for: Warm. Negative for: Rashes Psychiatric: Negative for: Alert, Oriented x 3, Normal Insight - Medications Active Medications: Active Medications Generic Name Dose Route Start Last Admin Trade Name Freq PRN Reason Stop Dose Admin Acetaminophen 650 mg 03/02/17 20:39 Tylenol 325mg Tab PO Q6H PRN Pain, Mild (1-3) Acetaminophen 650 mg 03/02/17 20:39 Tylenol 325mg Tab PO Q6H PRN Fever >100.4 F Albuterol/Ipratropium 3 ml 03/03/17 00:00 03/11/17 09:02 Duoneb 3 Mg/0.5 Mg (3 Ml) Ud INH 3 ml RQ4 FOREST Administration Folic Acid 1 mg 03/03/17 09:00 03/11/17 09:19 Folic Acid PO 1 mg DAILY FOREST Administration Furosemide 40 mg 03/09/17 11:45 03/11/17 09:33 Lasix IVP 40 mg DAILY FOREST Administration Fluconazole 100 mls @ 100 mls/hr 03/06/17 12:30 03/11/17 09:23 Diflucan Iv 200 Mg/100 Ml Ns IVPB 100 mls/hr DAILY FOREST Administration Aztreonam 2 gm/ Sodium 100 mls @ 100 mls/hr 03/07/17 15:00 03/11/17 09:21 Chloride IVPB 100 mls/hr Q8 FOREST Administration Protocol Metronidazole 100 mls @ 100 mls/hr 03/07/17 15:00 03/11/17 06:25 Flagyl 500mg/100ml Ns IVPB 100 mls/hr Q8H FOREST Administration Protocol Linezolid 600 mg in 300 mls @ 300 mls/hr 03/08/17 21:00 03/11/17 09:22 Zyvox 600mg/300ml D5w IVPB 300 mls/hr Q12 FOREST Administration Protocol Sodium Chloride 1,000 mls @ 1,000 mls/hr 03/11/17 08:00 03/11/17 08:00 Sodium Chloride 0.9% IV 03/12/17 07:57 1,000 mls/hr .Q1H FOREST Administration Norepinephrine Bitartrate 8 mg 258 mls @ 4.83 mls/hr 03/11/17 10:37 03/11/17 11:08 / Dextrose IV 03/12/17 10:36 2.5 mcg/min .Q24H ONE 4.83 mls/hr Protocol Administration 2.5 MCG/MIN Lactulose 20 gm 03/02/17 22:00 03/11/17 09:19 Enulose PO 20 gm QID FOREST Administration Lorazepam 2 mg 03/09/17 11:03 03/10/17 18:41 Ativan IVP 2 mg Q6 PRN Administration Agitation Methylprednisolone 40 mg 03/03/17 01:00 03/11/17 09:17 Solu-Medrol IVP 40 mg Q8 FOREST Administration Morphine Sulfate 4 mg 03/10/17 13:30 03/10/17 21:28 Morphine IVP 4 mg Q6 PRN Administration Agitation Multivitamins/Minerals 1 tab 03/03/17 09:00 03/11/17 09:20 Therapeutic-M Tab PO 1 tab DAILY FOREST Administration Nystatin 1 applic 03/03/17 09:00 03/11/17 09:25 Mycostatin Cream TOP 1 applic TID FOREST Administration Nystatin 1 applic 03/02/17 22:00 03/11/17 09:25 Nystop Topical Powder TOP 1 applic QID FOREST Administration Pantoprazole Sodium 40 mg 03/10/17 09:00 03/11/17 09:19 Protonix Ec Tab PO 40 mg DAILY FOREST Administration Rifaximin 550 mg 03/03/17 09:00 03/11/17 09:19 Xifaxan PO 550 mg BID FOREST Administration Protocol Spironolactone 50 mg 03/09/17 21:00 03/11/17 09:20 Aldactone NG 50 mg DAILY FOREST Administration Thiamine HCl 100 mg 03/03/17 09:00 03/11/17 09:19 Vitamin B1 Tab PO 100 mg DAILY FOREST Administration - Patient Studies Lab Studies: Microbiology Studies 03/08/17 19:00 Blood Culture - Preliminary Blood NO GROWTH AFTER 48 HOURS Lab Studies 03/11/17 03/11/17 03/11/17 Range/Units 09:04 09:04 07:57 WBC (4.8-10.8) K/uL RBC (3.80-5.20) Mil/uL Hgb (12.0-16.0) g/dL Hct (34.0-47.0) % MCV (81.0-99.0) fl MCH (27.0-31.0) pg MCHC (33.0-37.0) g/dL RDW (11.5-14.5) % Plt Count (130-400) K/uL MPV (7.2-11.7) fl Neut % (Auto) (50.0-75.0) % Lymph % (Auto) (20.0-40.0) % [place] % (Auto) (0.0-10.0) % Eos % (Auto) (0.0-4.0) % Baso % (Auto) (0.0-2.0) % Neut # (1.8-7.0) K/uL Lymph # (1.0-4.3) K/uL [place] # (0.0-0.8) K/uL Eos # (0.0-0.7) K/uL Baso # (0.0-0.2) K/uL Neutrophils % (Manual) (42-75) % Band Neutrophils % (0-2) % Lymphocytes % (Manual) (20-50) % Monocytes % (Manual) (0-10) % Platelet Estimate (NORMAL) Large Platelets Poikilocytosis (manual Anisocytosis (manual) Macrocytosis (manual) Ovalocytes Kirill Cells Fibrinogen (200-400) mg/dl pCO2 (35-45) mm/Hg pO2 61 H (80-100) mm/Hg HCO3 (21-28) mmol/L ABG pH (7.35-7.45) ABG Total CO2 (22-28) mmol/L ABG O2 Saturation (95-98) % ABG O2 Content (15-23) ML/dL ABG Base Excess (-2.0-3.0) mmol/L ABG Hemoglobin (11.7-17.4) g/dL ABG Carboxyhemoglobin (0.5-1.5) % POC ABG HHb (Measured) (0.0-5.0) % ABG Methemoglobin (0.0-3.0) % ABG O2 Capacity (16-24) mL/dL Dick Test VBG pH 7.02 L* (7.32-7.43) VBG pCO2 45 (40-60) mmHg VBG HCO3 9.8 mmol/L VBG Total CO2 13.0 L (22-28) mmol/L VBG O2 Sat (Calc) 86.8 H (40-65) % VBG Base Excess -19.0 L (0.0-2.0) mmol/L VBG Potassium 5.3 H (3.6-5.2) mmol/L A-a O2 Difference 239.0 mm/Hg Hgb O2 Saturation (95.0-98.0) % Glucose 125 H (65-105) mg/dL Lactate 7.9 H* (0.7-2.1) mmol/L Vent Mode Mechanical Rate FiO2 50.0 % Tidal Volume PEEP 5 Crit Value Called To Aguilar moran Crit Value Called By 15 Crit Value Read Back Y Blood Gas Notified Time 828 Sodium 132.0 (132-148) mmol/l Potassium (3.6-5.0) MMOL/L Chloride 104.0 (98-107) mmol/L Carbon Dioxide (22-30) mmol/L Anion Gap (10-20) BUN (7-17) mg/dl Creatinine (0.7-1.2) mg/dl Est GFR ( Amer) Est GFR (Non-Af Amer) Random Glucose (65-105) mg/dL Calcium (8.4-10.2) mg/dL Procalcitonin (0.19-0.49) NG/ML Venous Blood Potassium 5.3 H (3.6-5.2) mmol/L Urine Osmolality 382 (300-1000) mosm/kg Ur Random Creatinine 66.7 mg/dL Ur Random Sodium 12 meq/L Ur Random Potassium 26.8 mmol/L 03/11/17 03/11/17 03/11/17 Range/Units 04:57 04:00 04:00 WBC (4.8-10.8) K/uL RBC (3.80-5.20) Mil/uL Hgb (12.0-16.0) g/dL Hct (34.0-47.0) % MCV (81.0-99.0) fl MCH (27.0-31.0) pg MCHC (33.0-37.0) g/dL RDW (11.5-14.5) % Plt Count (130-400) K/uL MPV (7.2-11.7) fl Neut % (Auto) (50.0-75.0) % Lymph % (Auto) (20.0-40.0) % [place] % (Auto) (0.0-10.0) % Eos % (Auto) (0.0-4.0) % Baso % (Auto) (0.0-2.0) % Neut # (1.8-7.0) K/uL Lymph # (1.0-4.3) K/uL [place] # (0.0-0.8) K/uL Eos # (0.0-0.7) K/uL Baso # (0.0-0.2) K/uL Neutrophils % (Manual) (42-75) % Band Neutrophils % (0-2) % Lymphocytes % (Manual) (20-50) % Monocytes % (Manual) (0-10) % Platelet Estimate (NORMAL) Large Platelets Poikilocytosis (manual Anisocytosis (manual) Macrocytosis (manual) Ovalocytes [place] Cells Fibrinogen 260 (200-400) mg/dl pCO2 40 (35-45) mm/Hg pO2 102 H (80-100) mm/Hg HCO3 13.0 L (21-28) mmol/L ABG pH 7.13 L* (7.35-7.45) ABG Total CO2 14.5 L (22-28) mmol/L ABG O2 Saturation 99.1 H (95-98) % ABG O2 Content 17.5 (15-23) ML/dL ABG Base Excess -15.2 L (-2.0-3.0) mmol/L ABG Hemoglobin 12.9 (11.7-17.4) g/dL ABG Carboxyhemoglobin 1.9 H (0.5-1.5) % POC ABG HHb (Measured) 0.9 (0.0-5.0) % ABG Methemoglobin 1.4 (0.0-3.0) % ABG O2 Capacity 17.7 (16-24) mL/dL Dick Test Yes VBG pH (7.32-7.43) VBG pCO2 (40-60) mmHg VBG HCO3 mmol/L VBG Total CO2 (22-28) mmol/L VBG O2 Sat (Calc) (40-65) % VBG Base Excess (0.0-2.0) mmol/L VBG Potassium (3.6-5.2) mmol/L A-a O2 Difference 133.0 mm/Hg Hgb O2 Saturation 95.9 (95.0-98.0) % Glucose (65-105) mg/dL Lactate (0.7-2.1) mmol/L Vent Mode A/c Mechanical Rate 16 FiO2 40.0 % Tidal Volume 400 PEEP 5 Crit Value Called To Radha funez Crit Value Called By 6075 Crit Value Read Back Y Blood Gas Notified Time 506 Sodium 139 (132-148) mmol/l Potassium 4.2 (3.6-5.0) MMOL/L Chloride 110 H (98-107) mmol/L Carbon Dioxide 12 L (22-30) mmol/L Anion Gap 21 H (10-20) BUN 76 H (7-17) mg/dl Creatinine 1.8 H (0.7-1.2) mg/dl Est GFR ( Amer) 36 Est GFR (Non-Af Amer) 30 Random Glucose 132 H (65-105) mg/dL Calcium 8.2 L (8.4-10.2) mg/dL Procalcitonin (0.19-0.49) NG/ML Venous Blood Potassium (3.6-5.2) mmol/L Urine Osmolality (300-1000) mosm/kg Ur Random Creatinine mg/dL Ur Random Sodium meq/L Ur Random Potassium mmol/L 03/11/17 03/10/17 Range/Units 04:00 05:15 WBC 31.7 H (4.8-10.8) K/uL RBC 3.39 L (3.80-5.20) Mil/uL Hgb 10.8 L (12.0-16.0) g/dL Hct 35.5 (34.0-47.0) % MCV 104.5 H (81.0-99.0) fl MCH 32.0 H (27.0-31.0) pg MCHC 30.6 L (33.0-37.0) g/dL RDW 17.9 H (11.5-14.5) % Plt Count 92 L (130-400) K/uL MPV 11.9 H (7.2-11.7) fl Neut % (Auto) 98.9 H (50.0-75.0) % Lymph % (Auto) 0.6 L (20.0-40.0) % [place] % (Auto) 0.1 (0.0-10.0) % Eos % (Auto) 0.0 (0.0-4.0) % Baso % (Auto) 0.4 (0.0-2.0) % Neut # 31.3 H (1.8-7.0) K/uL Lymph # 0.2 L (1.0-4.3) K/uL [place] # 0.0 (0.0-0.8) K/uL Eos # 0.0 (0.0-0.7) K/uL Baso # 0.1 (0.0-0.2) K/uL Neutrophils % (Manual) 91 H (42-75) % Band Neutrophils % 7 H (0-2) % Lymphocytes % (Manual) 1 L (20-50) % Monocytes % (Manual) 1 (0-10) % Platelet Estimate Decreased L (NORMAL) Large Platelets Present Poikilocytosis (manual Slight Anisocytosis (manual) Slight Macrocytosis (manual) Slight Ovalocytes Slight [place] Cells Slight Fibrinogen (200-400) mg/dl pCO2 (35-45) mm/Hg pO2 (80-100) mm/Hg HCO3 (21-28) mmol/L ABG pH (7.35-7.45) ABG Total CO2 (22-28) mmol/L ABG O2 Saturation (95-98) % ABG O2 Content (15-23) ML/dL ABG Base Excess (-2.0-3.0) mmol/L ABG Hemoglobin (11.7-17.4) g/dL ABG Carboxyhemoglobin (0.5-1.5) % POC ABG HHb (Measured) (0.0-5.0) % ABG Methemoglobin (0.0-3.0) % ABG O2 Capacity (16-24) mL/dL Dick Test VBG pH (7.32-7.43) VBG pCO2 (40-60) mmHg VBG HCO3 mmol/L VBG Total CO2 (22-28) mmol/L VBG O2 Sat (Calc) (40-65) % VBG Base Excess (0.0-2.0) mmol/L VBG Potassium (3.6-5.2) mmol/L A-a O2 Difference mm/Hg Hgb O2 Saturation (95.0-98.0) % Glucose (65-105) mg/dL Lactate (0.7-2.1) mmol/L Vent Mode Mechanical Rate FiO2 % Tidal Volume PEEP Crit Value Called To Crit Value Called By Crit Value Read Back Blood Gas Notified Time Sodium (132-148) mmol/l Potassium (3.6-5.0) MMOL/L Chloride (98-107) mmol/L Carbon Dioxide (22-30) mmol/L Anion Gap (10-20) BUN (7-17) mg/dl Creatinine (0.7-1.2) mg/dl Est GFR ( Amer) Est GFR (Non-Af Amer) Random Glucose (65-105) mg/dL Calcium (8.4-10.2) mg/dL Procalcitonin 1.52 H (0.19-0.49) NG/ML Venous Blood Potassium (3.6-5.2) mmol/L Urine Osmolality (300-1000) mosm/kg Ur Random Creatinine mg/dL Ur Random Sodium meq/L Ur Random Potassium mmol/L Laboratory Results - last 24 hr 03/10/17 03/11/17 03/11/17 05:15 04:00 04:00 WBC 31.7 H RBC 3.39 L Hgb 10.8 L Hct 35.5 MCV 104.5 H MCH 32.0 H MCHC 30.6 L RDW 17.9 H Plt Count 92 L MPV 11.9 H Neut % (Auto) 98.9 H Lymph % (Auto) 0.6 L [place] % (Auto) 0.1 Eos % (Auto) 0.0 Baso % (Auto) 0.4 Neut # 31.3 H Lymph # 0.2 L [place] # 0.0 Eos # 0.0 Baso # 0.1 Neutrophils % (Manual) 91 H Band Neutrophils % 7 H Lymphocytes % (Manual) 1 L Monocytes % (Manual) 1 Platelet Estimate Decreased L Large Platelets Present Poikilocytosis (manual Slight Anisocytosis (manual) Slight Macrocytosis (manual) Slight Ovalocytes Slight [place] Cells Slight Fibrinogen pCO2 pO2 HCO3 ABG pH ABG Total CO2 ABG O2 Saturation ABG O2 Content ABG Base Excess ABG Hemoglobin ABG Carboxyhemoglobin POC ABG HHb (Measured) ABG Methemoglobin ABG O2 Capacity Dick Test VBG pH VBG pCO2 VBG HCO3 VBG Total CO2 VBG O2 Sat (Calc) VBG Base Excess VBG Potassium A-a O2 Difference Hgb O2 Saturation Glucose Lactate Vent Mode Mechanical Rate FiO2 Tidal Volume PEEP Crit Value Called To Crit Value Called By Crit Value Read Back Blood Gas Notified Time Sodium 139 Potassium 4.2 Chloride 110 H Carbon Dioxide 12 L Anion Gap 21 H BUN 76 H Creatinine 1.8 H Est GFR ( Amer) 36 Est GFR (Non-Af Amer) 30 Random Glucose 132 H Calcium 8.2 L Procalcitonin 1.52 H Venous Blood Potassium Urine Osmolality Ur Random Creatinine Ur Random Sodium Ur Random Potassium 03/11/17 03/11/17 03/11/17 04:00 04:57 07:57 WBC RBC Hgb Hct MCV MCH MCHC RDW Plt Count MPV Neut % (Auto) Lymph % (Auto) [place] % (Auto) Eos % (Auto) Baso % (Auto) Neut # Lymph # [place] # Eos # Baso # Neutrophils % (Manual) Band Neutrophils % Lymphocytes % (Manual) Monocytes % (Manual) Platelet Estimate Large Platelets Poikilocytosis (manual Anisocytosis (manual) Macrocytosis (manual) Ovalocytes Kirill Cells Fibrinogen 260 pCO2 40 pO2 102 H 61 H HCO3 13.0 L ABG pH 7.13 L* ABG Total CO2 14.5 L ABG O2 Saturation 99.1 H ABG O2 Content 17.5 ABG Base Excess -15.2 L ABG Hemoglobin 12.9 ABG Carboxyhemoglobin 1.9 H POC ABG HHb (Measured) 0.9 ABG Methemoglobin 1.4 ABG O2 Capacity 17.7 Dick Test Yes VBG pH 7.02 L* VBG pCO2 45 VBG HCO3 9.8 VBG Total CO2 13.0 L VBG O2 Sat (Calc) 86.8 H VBG Base Excess -19.0 L VBG Potassium 5.3 H A-a O2 Difference 133.0 239.0 Hgb O2 Saturation 95.9 Glucose 125 H Lactate 7.9 H* Vent Mode A/c Mechanical Rate 16 FiO2 40.0 50.0 Tidal Volume 400 PEEP 5 5 Crit Value Called To Radha moran Crit Value Called By 6075 15 Crit Value Read Back Y Y Blood Gas Notified Time 506 828 Sodium 132.0 Potassium Chloride 104.0 Carbon Dioxide Anion Gap BUN Creatinine Est GFR ( Amer) Est GFR (Non-Af Amer) Random Glucose Calcium Procalcitonin Venous Blood Potassium 5.3 H Urine Osmolality Ur Random Creatinine Ur Random Sodium Ur Random Potassium 03/11/17 03/11/17 09:04 09:04 WBC RBC Hgb Hct MCV MCH MCHC RDW Plt Count MPV Neut % (Auto) Lymph % (Auto) [place] % (Auto) Eos % (Auto) Baso % (Auto) Neut # Lymph # [place] # Eos # Baso # Neutrophils % (Manual) Band Neutrophils % Lymphocytes % (Manual) Monocytes % (Manual) Platelet Estimate Large Platelets Poikilocytosis (manual Anisocytosis (manual) Macrocytosis (manual) Ovalocytes [place] Cells Fibrinogen pCO2 pO2 HCO3 ABG pH ABG Total CO2 ABG O2 Saturation ABG O2 Content ABG Base Excess ABG Hemoglobin ABG Carboxyhemoglobin POC ABG HHb (Measured) ABG Methemoglobin ABG O2 Capacity Dick Test VBG pH VBG pCO2 VBG HCO3 VBG Total CO2 VBG O2 Sat (Calc) VBG Base Excess VBG Potassium A-a O2 Difference Hgb O2 Saturation Glucose Lactate Vent Mode Mechanical Rate FiO2 Tidal Volume PEEP Crit Value Called To Crit Value Called By Crit Value Read Back Blood Gas Notified Time Sodium Potassium Chloride Carbon Dioxide Anion Gap BUN Creatinine Est GFR ( Amer) Est GFR (Non-Af Amer) Random Glucose Calcium Procalcitonin Venous Blood Potassium Urine Osmolality 382 Ur Random Creatinine 66.7 Ur Random Sodium 12 Ur Random Potassium 26.8 Review of Systems - Review of Systems Review of Systems: ROS not obtained due to patient being lethargic. Critical Care Progress Note - Ventilator Checklist Head of Bed 30 Degrees: Yes Daily Sedation Vacation: Yes Daily Assessment of Readiness to Wean: Yes Daily Spontaneous Breathing Trial: Yes PUD Prophalyxis: Yes DVT Prophylaxis: Yes Oral Care with Chlorhexidine Gluconate {CHG}: Yes Assessment/Plan - Assessment and Plan (Free Text) Assessment: 51 y.o. female in ICU currently on mechanical ventilation admitted for sepsis and COPD exacerbation now with Metabolic Acidosis 1- Metabolic Acidosis of unclear etiology a- pH 7.0 HCO3 13 and NL CO2 of 40 b- Will consider Hepatorenal syndrome given patient has Liver Cirrhosis and upward trending BUN- Continue Lasix 40mg and Aldactone 25mg c- Will get Urine electrolytes for further evaluation d- Will start patient on N/S at 200cc/hr to maintain intravascular volume and prevent kidney injury e- Will consider Albumin transfusion to maintain oncotic pressure 2-Thrombocytopenia- of unclear etiology- Platelets today 92 up from 83 a- Will continue to monitor with repeat CBC in the a.m. b- Will consider transfusion of platelets if Platelets drop more than 50 also for possible planned parecentecis will need platelet transfusion c- Fibrinogen within normal limits at 260 3- Abdominal pain of unclear etiology likely due to ascities due to liver cirrhosis- afebrile last 24 hours a- Abdominal U/S shows pockets of ascitic fluid b- Will consider re-consult of Interventional Radiology for therapeutic vs. diagnostic Paracentecis 4- Sepsis- Improving but spike in WBC count more than 30 but afebrile in the last 24 hours a- BCX positive for E. Facalis sensitive to Linazolid, currently on Linazolid will continue with Linazolid b- BCx positive for E. Coli sensitive to Ertapenem, currently on Aztreonam will continue Aztreonam 5- COPD exacerbation- Stable a- Continue Duonebs Q4 FOREST b- Continue Solumedrol 40mg Q8 c- Currently on mechanical ventilation- will consider Tracheotomy if fail to wean off of mechanical ventilation 6- Pneumonia- Sputum cultures show E.coli - sensitive to Linazolid a- Continue with Linazolid and Aztreonam b- I.D. input appreciated c- CT chest on 03/07/17 shows bilateral lower lobe infiltrate 7- Mechanical ventilation a- Will stop Fentanyl drip- Ativan and Morphine for agitation and pain control b- Vent settings re-evaluated and will continue A/C/16/400/5/40% c- Repeat ABG in the a.m. 8- Hepatic Encephalopathy a- ammonia level- 63 on 03/10/16 b- Will continue Rifaxamine and Lactulose 9- Diet a- Continue OG tube feedings 10- GI prophylaxis a- Protonix 40mg IVP daily 11- DVT prophylaxis a- SCD given pt. has liver cirrhosis and underlying coagulopathy 12- Code status a- Full code <Mario Grewaln - Last Filed: 03/11/17 18:02> Assessment/Plan - Assessment and Plan (Free Text) Plan: Attestation: Patient seen and examined at the bedside with Resident Dr. Izabella Deleon; and I agree with his outline of plans and management documented above as discussed on AM rounds reflecting my review of all applicable clinical data, and participation in the care of the patient throughout the day in ICU; March 11, 2017. ADDENDUM: SUMMARY- Progressive deterioration noted since overnight hypotension occurred with no significant hemodynamic response to multiple fluid challenges (up to 2.0L) and subsequent initiation of Levophed. Marked lactic acidosis noted with no clearly defined primary source. 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 Sputum and urine had E. coli growth as well. Antibiotics changed by ID to Tygacil, Flagyl and Diflucan. She is now comatose and unresponsive to pain with extreme metabolic acidosis, pH down to below 6.90 and lactate above 11.0. Suspicion now pointing towards intrabdominal etiology given the profound acidosis and quick deterioration suggestive of an intrabdominal abscess, or ischemic / bowel or peritonitis (beyond simple Spontaneous Bacterial Peritonitis). Urine output has worsened from oliguria to anuria throughout the day today despite additional fluids and diuretics to promote urine flow. Orders placed for CT Brain and Abdomen/Pelvis. Discussed present clinical conditions with patients sister ~(Izabela)at the bedside and she is aware of the present implications and poor prognosis.
[2017-03-11] MEDS: Sodium Chloride 0.9% 1,000 ML IV SCH ×2 (12:09→15:06)
--- NOTE | 2017-03-11 12:29 | CP.PCM.CON ---
History of Present Illness - History of Present Illness History of Present Illness: pt is seen and examined, full consult is dictated #[id number] 1. SUNDAR 2. resp. failure 3. cirrhosis of liver 4. VRE sepsis 5. Ascites, r/o SBP check urine lytes, osm d/c aldactone may need iv albumin and midodrine/ octeotide prognosis is poor Past Patient History - Infectious Disease Hx of Infectious Diseases: None - Tetanus Immunizations Tetanus Immunization: Unknown - Past Medical History & Family History Past Medical History?: Yes - Past Social History Alcohol: None Drugs: Denies - CARDIAC Hx Cardiac Disorders: No - PULMONARY Hx Asthma: Yes Hx Bronchitis: Yes Hx Chronic Obstructive Pulmonary Disease (COPD): Yes Hx Pneumonia: Yes - NEUROLOGICAL Hx Neurological Disorder: No - HEENT Hx HEENT Problems: No - RENAL Hx Chronic Kidney Disease: No - ENDOCRINE/METABOLIC Hx Endocrine Disorders: No - HEMATOLOGICAL/ONCOLOGICAL Hx Blood Disorders: No Hx AIDS: No Hx Human Immunodeficiency Virus (HIV): No - INTEGUMENTARY Hx Dermatological Problems: No - MUSCULOSKELETAL/RHEUMATOLOGICAL Hx Musculoskeletal Disorders: Yes Hx Back Pain: Yes (lower back pain ) Hx Falls: No - GASTROINTESTINAL Hx Gastrointestinal Disorders: Yes Hx Fatty Liver Disease: Yes - GENITOURINARY/GYNECOLOGICAL Hx Genitourinary Disorders: No - PSYCHIATRIC Hx Psychophysiologic Disorder: No Hx Substance Use: No - SURGICAL HISTORY Hx Surgeries: No - ANESTHESIA Hx Anesthesia: No Hx Anesthesia Reactions: No Meds Allergies/Adverse Reactions: Allergies Allergy/AdvReac Type Severity Reaction Status Date / Time No Known Allergies Allergy Verified 01/27/17 12:43 - Medications Medications: Current Medications Acetaminophen (Tylenol 325mg Tab) 650 mg PO Q6H PRN PRN Reason: Pain, Mild (1-3) Acetaminophen (Tylenol 325mg Tab) 650 mg PO Q6H PRN PRN Reason: Fever >100.4 F Albuterol/Ipratropium (Duoneb 3 Mg/0.5 Mg (3 Ml) Ud) 3 ml INH RQ4 [facility] Last Admin: 03/11/17 12:15 Dose: 3 ml Folic Acid (Folic Acid) 1 mg PO DAILY [facility] Last Admin: 03/11/17 09:19 Dose: 1 mg Furosemide (Lasix) 40 mg IVP DAILY [facility] Last Admin: 03/11/17 09:33 Dose: 40 mg Fluconazole (Diflucan Iv 200 Mg/100 Ml Ns) 100 mls @ 100 mls/hr IVPB DAILY [facility] Last Admin: 03/11/17 09:23 Dose: 100 mls/hr Aztreonam 2 gm/ Sodium (Chloride) 100 mls @ 100 mls/hr IVPB Q8 [facility] PRN Reason: Protocol Last Admin: 03/11/17 09:21 Dose: 100 mls/hr Metronidazole (Flagyl 500mg/100ml Ns) 100 mls @ 100 mls/hr IVPB Q8H [facility] PRN Reason: Protocol Last Admin: 03/11/17 06:25 Dose: 100 mls/hr Linezolid (Zyvox 600mg/300ml D5w) 600 mg in 300 mls @ 300 mls/hr IVPB Q12 [facility] PRN Reason: Protocol Last Admin: 03/11/17 09:22 Dose: 300 mls/hr Sodium Chloride (Sodium Chloride 0.9%) 1,000 mls @ 1,000 mls/hr IV .Q1H [facility] Stop: 03/12/17 07:57 Last Admin: 03/11/17 08:00 Dose: 1,000 mls/hr Norepinephrine Bitartrate 8 mg (/ Dextrose) 258 mls @ 4.83 mls/hr IV .Q24H ONE ; 2.5 MCG/MIN PRN Reason: Protocol Stop: 03/12/17 10:36 Last Titration: 03/11/17 11:43 Dose: 0 mcg/min, 0 mls/hr Sodium Chloride (Sodium Chloride 0.9%) 1,000 mls @ 200 mls/hr IV .Q5H [facility] Stop: 03/12/17 12:06 Last Admin: 03/11/17 12:09 Dose: 200 mls/hr Lactulose (Enulose) 20 gm PO QID [facility] Last Admin: 03/11/17 09:19 Dose: 20 gm Lorazepam (Ativan) 2 mg IVP Q6 PRN PRN Reason: Agitation Last Admin: 03/10/17 18:41 Dose: 2 mg Methylprednisolone (Solu-Medrol) 40 mg IVP Q8 [facility] Last Admin: 03/11/17 09:17 Dose: 40 mg Morphine Sulfate (Morphine) 4 mg IVP Q6 PRN PRN Reason: Agitation Last Admin: 03/11/17 11:37 Dose: 4 mg Multivitamins/Minerals (Therapeutic-M Tab) 1 tab PO DAILY [facility] Last Admin: 03/11/17 09:20 Dose: 1 tab Nystatin (Mycostatin Cream) 1 applic TOP TID [facility] Last Admin: 03/11/17 09:25 Dose: 1 applic Nystatin (Nystop Topical Powder) 1 applic TOP QID [facility] Last Admin: 03/11/17 09:25 Dose: 1 applic Pantoprazole Sodium (Protonix Ec Tab) 40 mg PO DAILY [facility] Last Admin: 03/11/17 09:19 Dose: 40 mg Rifaximin (Xifaxan) 550 mg PO BID [facility] PRN Reason: Protocol Last Admin: 03/11/17 09:19 Dose: 550 mg Spironolactone (Aldactone) 50 mg NG DAILY [facility] Last Admin: 03/11/17 09:20 Dose: 50 mg Thiamine HCl (Vitamin B1 Tab) 100 mg PO DAILY [facility] Last Admin: 03/11/17 09:19 Dose: 100 mg Results - Vital Signs Recent Vital Signs: Last Vital Signs Temp 99.0 F 03/11/17 12:00 Pulse 134 H 03/11/17 12:00 Resp 15 03/11/17 12:00 BP 116/70 03/11/17 12:00 Pulse Ox 95 03/11/17 12:00 - Labs Result Diagrams: 03/11/17 04:00 03/11/17 04:00 Labs: Laboratory Results - last 24 hr 03/10/17 03/11/17 03/11/17 05:15 04:00 04:00 WBC 31.7 H RBC 3.39 L Hgb 10.8 L Hct 35.5 MCV 104.5 H MCH 32.0 H MCHC 30.6 L RDW 17.9 H Plt Count 92 L MPV 11.9 H Neut % (Auto) 98.9 H Lymph % (Auto) 0.6 L [place] % (Auto) 0.1 Eos % (Auto) 0.0 Baso % (Auto) 0.4 Neut # 31.3 H Lymph # 0.2 L [place] # 0.0 Eos # 0.0 Baso # 0.1 Neutrophils % (Manual) 91 H Band Neutrophils % 7 H Lymphocytes % (Manual) 1 L Monocytes % (Manual) 1 Platelet Estimate Decreased L Large Platelets Present Poikilocytosis (manual Slight Anisocytosis (manual) Slight Macrocytosis (manual) Slight Ovalocytes Slight [place] Cells Slight Fibrinogen pCO2 pO2 HCO3 ABG pH ABG Total CO2 ABG O2 Saturation ABG O2 Content ABG Base Excess ABG Hemoglobin ABG Carboxyhemoglobin POC ABG HHb (Measured) ABG Methemoglobin ABG O2 Capacity Dick Test VBG pH VBG pCO2 VBG HCO3 VBG Total CO2 VBG O2 Sat (Calc) VBG Base Excess VBG Potassium A-a O2 Difference Hgb O2 Saturation Glucose Lactate Vent Mode Mechanical Rate FiO2 Tidal Volume PEEP Crit Value Called To Crit Value Called By Crit Value Read Back Blood Gas Notified Time Sodium 139 Potassium 4.2 Chloride 110 H Carbon Dioxide 12 L Anion Gap 21 H BUN 76 H Creatinine 1.8 H Est GFR ( Amer) 36 Est GFR (Non-Af Amer) 30 Random Glucose 132 H Calcium 8.2 L Procalcitonin 1.52 H Venous Blood Potassium Urine Osmolality Ur Random Creatinine Ur Random Sodium Ur Random Potassium 03/11/17 03/11/17 03/11/17 04:00 04:57 07:57 WBC RBC Hgb Hct MCV MCH MCHC RDW Plt Count MPV Neut % (Auto) Lymph % (Auto) [place] % (Auto) Eos % (Auto) Baso % (Auto) Neut # Lymph # [place] # Eos # Baso # Neutrophils % (Manual) Band Neutrophils % Lymphocytes % (Manual) Monocytes % (Manual) Platelet Estimate Large Platelets Poikilocytosis (manual Anisocytosis (manual) Macrocytosis (manual) Ovalocytes [place] Cells Fibrinogen 260 pCO2 40 pO2 102 H 61 H HCO3 13.0 L ABG pH 7.13 L* ABG Total CO2 14.5 L ABG O2 Saturation 99.1 H ABG O2 Content 17.5 ABG Base Excess -15.2 L ABG Hemoglobin 12.9 ABG Carboxyhemoglobin 1.9 H POC ABG HHb (Measured) 0.9 ABG Methemoglobin 1.4 ABG O2 Capacity 17.7 Dick Test Yes VBG pH 7.02 L* VBG pCO2 45 VBG HCO3 9.8 VBG Total CO2 13.0 L VBG O2 Sat (Calc) 86.8 H VBG Base Excess -19.0 L VBG Potassium 5.3 H A-a O2 Difference 133.0 239.0 Hgb O2 Saturation 95.9 Glucose 125 H Lactate 7.9 H* Vent Mode A/c Mechanical Rate 16 FiO2 40.0 50.0 Tidal Volume 400 PEEP 5 5 Crit Value Called To Radha moran Crit Value Called By 6075 15 Crit Value Read Back Y Y Blood Gas Notified Time [id number] Sodium 132.0 Potassium Chloride 104.0 Carbon Dioxide Anion Gap BUN Creatinine Est GFR ( Amer) Est GFR (Non-Af Amer) Random Glucose Calcium Procalcitonin Venous Blood Potassium 5.3 H Urine Osmolality Ur Random Creatinine Ur Random Sodium Ur Random Potassium 03/11/17 03/11/17 09:04 09:04 WBC RBC Hgb Hct MCV MCH MCHC RDW Plt Count MPV Neut % (Auto) Lymph % (Auto) [place] % (Auto) Eos % (Auto) Baso % (Auto) Neut # Lymph # [place] # Eos # Baso # Neutrophils % (Manual) Band Neutrophils % Lymphocytes % (Manual) Monocytes % (Manual) Platelet Estimate Large Platelets Poikilocytosis (manual Anisocytosis (manual) Macrocytosis (manual) Ovalocytes [place] Cells Fibrinogen pCO2 pO2 HCO3 ABG pH ABG Total CO2 ABG O2 Saturation ABG O2 Content ABG Base Excess ABG Hemoglobin ABG Carboxyhemoglobin POC ABG HHb (Measured) ABG Methemoglobin ABG O2 Capacity Dick Test VBG pH VBG pCO2 VBG HCO3 VBG Total CO2 VBG O2 Sat (Calc) VBG Base Excess VBG Potassium A-a O2 Difference Hgb O2 Saturation Glucose Lactate Vent Mode Mechanical Rate FiO2 Tidal Volume PEEP Crit Value Called To Crit Value Called By Crit Value Read Back Blood Gas Notified Time Sodium Potassium Chloride Carbon Dioxide Anion Gap BUN Creatinine Est GFR ( Amer) Est GFR (Non-Af Amer) Random Glucose Calcium Procalcitonin Venous Blood Potassium Urine Osmolality 382 Ur Random Creatinine 66.7 Ur Random Sodium 12 Ur Random Potassium 26.8
--- NOTE | 2017-03-11 13:04 | CP.PCM.PN ---
Subjective - Date & Time of Evaluation Date of Evaluation: 03/11/17 Time of Evaluation: 10:00 - Subjective Subjective: blood still + for cocci In view pof persistently + blood cultures would consider change/ removal PICC if bacteremia persists Zvox can be switched back to Tygacil but lactic acidosis not clearly implicated since pt does have sepsis/ bacteremia poor prognosis Objective - Vital Signs/Intake and Output Vital Signs (last 24 hours): Temp Pulse Resp BP Pulse Ox 99.0 F 134 H 15 116/70 95 03/11/17 12:00 03/11/17 12:00 03/11/17 12:00 03/11/17 12:00 03/11/17 12:00 Intake and Output: 03/11/17 03/11/17 06:59 18:59 Intake Total 1480 2007 Output Total 25 Balance 1455 2007 - Medications Medications: Current Medications Acetaminophen (Tylenol 325mg Tab) 650 mg PO Q6H PRN PRN Reason: Pain, Mild (1-3) Acetaminophen (Tylenol 325mg Tab) 650 mg PO Q6H PRN PRN Reason: Fever >100.4 F Albuterol/Ipratropium (Duoneb 3 Mg/0.5 Mg (3 Ml) Ud) 3 ml INH RQ4 [facility] Last Admin: 03/11/17 12:15 Dose: 3 ml Folic Acid (Folic Acid) 1 mg PO DAILY [facility] Last Admin: 03/11/17 09:19 Dose: 1 mg Furosemide (Lasix) 40 mg IVP DAILY [facility] Last Admin: 03/11/17 09:33 Dose: 40 mg Fluconazole (Diflucan Iv 200 Mg/100 Ml Ns) 100 mls @ 100 mls/hr IVPB DAILY [facility] Last Admin: 03/11/17 09:23 Dose: 100 mls/hr Aztreonam 2 gm/ Sodium (Chloride) 100 mls @ 100 mls/hr IVPB Q8 [facility] PRN Reason: Protocol Last Admin: 03/11/17 09:21 Dose: 100 mls/hr Metronidazole (Flagyl 500mg/100ml Ns) 100 mls @ 100 mls/hr IVPB Q8H [facility] PRN Reason: Protocol Last Admin: 03/11/17 06:25 Dose: 100 mls/hr Linezolid (Zyvox 600mg/300ml D5w) 600 mg in 300 mls @ 300 mls/hr IVPB Q12 [facility] PRN Reason: Protocol Last Admin: 03/11/17 09:22 Dose: 300 mls/hr Sodium Chloride (Sodium Chloride 0.9%) 1,000 mls @ 1,000 mls/hr IV .Q1H [facility] Stop: 03/12/17 07:57 Last Admin: 03/11/17 08:00 Dose: 1,000 mls/hr Norepinephrine Bitartrate 8 mg (/ Dextrose) 258 mls @ 4.83 mls/hr IV .Q24H [facility] ; 2.5 MCG/MIN PRN Reason: Protocol Stop: 03/12/17 10:36 Last Titration: 03/11/17 11:43 Dose: 0 mcg/min, 0 mls/hr Sodium Chloride (Sodium Chloride 0.9%) 1,000 mls @ 200 mls/hr IV .Q5H [facility] Stop: 03/12/17 12:06 Last Admin: 03/11/17 12:09 Dose: 200 mls/hr Lactulose (Enulose) 20 gm PO QID [facility] Last Admin: 03/11/17 09:19 Dose: 20 gm Lorazepam (Ativan) 2 mg IVP Q6 PRN PRN Reason: Agitation Last Admin: 03/10/17 18:41 Dose: 2 mg Methylprednisolone (Solu-Medrol) 40 mg IVP Q8 [facility] Last Admin: 03/11/17 09:17 Dose: 40 mg Morphine Sulfate (Morphine) 4 mg IVP Q6 PRN PRN Reason: Agitation Last Admin: 03/11/17 11:37 Dose: 4 mg Multivitamins/Minerals (Therapeutic-M Tab) 1 tab PO DAILY [facility] Last Admin: 03/11/17 09:20 Dose: 1 tab Nystatin (Mycostatin Cream) 1 applic TOP TID [facility] Last Admin: 03/11/17 09:25 Dose: 1 applic Nystatin (Nystop Topical Powder) 1 applic TOP QID [facility] Last Admin: 03/11/17 09:25 Dose: 1 applic Pantoprazole Sodium (Protonix Ec Tab) 40 mg PO DAILY [facility] Last Admin: 03/11/17 09:19 Dose: 40 mg Rifaximin (Xifaxan) 550 mg PO BID [facility] PRN Reason: Protocol Last Admin: 03/11/17 09:19 Dose: 550 mg Spironolactone (Aldactone) 50 mg NG DAILY [facility] Last Admin: 03/11/17 09:20 Dose: 50 mg Thiamine HCl (Vitamin B1 Tab) 100 mg PO DAILY [facility] Last Admin: 03/11/17 09:19 Dose: 100 mg - Labs Labs: 03/11/17 04:00 03/11/17 04:00 PT 20.1 Seconds (9.8-13.1) H 03/09/17 11:15 INR 1.8 (0.9-1.2) H 03/09/17 11:15 APTT 36.8 Seconds (25.6-37.1) 03/09/17 11:15 - Constitutional Appears: Chronically Ill - Head Exam Head Exam: NORMOCEPHALIC - Eye Exam Eye Exam: PERRL - ENT Exam ENT Exam: Mucous Membranes Dry - Neck Exam Neck Exam: absent: Lymphadenopathy - Respiratory Exam Respiratory Exam: Decreased Breath Sounds - Cardiovascular Exam Cardiovascular Exam: REGULAR RHYTHM - GI/Abdominal Exam GI & Abdominal Exam: Distended, Soft - Rectal Exam Rectal Exam: Deferred - Exam Exam: NORMAL INSPECTION Assessment and Plan (1) Acute and chronic respiratory failure with hypercapnia Status: Acute (2) Hepatic encephalopathy Status: Acute - Assessment and Plan (Free Text) Assessment: blood still + for cocci In view pof persistently + blood cultures would consider change/ removal PICC if bacteremia persists Zvox can be switched back to Tygacil but lactic acidosis not clearly implicated since pt does have sepsis/ bacteremia poor prognosis
--- NOTE | 2017-03-11 13:50 | CP.PCM.PN ---
Subjective - Date & Time of Evaluation Date of Evaluation: 03/11/17 Time of Evaluation: 13:49 - Subjective Subjective: CLINICALLY UNCHANGED STILL ON THE RESPIRATOR WILL CONTINUE CURRENT RX Objective - Vital Signs/Intake and Output Vital Signs (last 24 hours): Temp Pulse Resp BP Pulse Ox 99.0 F 134 H 15 116/70 95 03/11/17 12:00 03/11/17 12:00 03/11/17 12:00 03/11/17 12:00 03/11/17 12:00 Intake and Output: 03/11/17 03/11/17 06:59 18:59 Intake Total 1480 2007 Output Total 25 Balance 1455 2007 - Medications Medications: Current Medications Acetaminophen (Tylenol 325mg Tab) 650 mg PO Q6H PRN PRN Reason: Pain, Mild (1-3) Acetaminophen (Tylenol 325mg Tab) 650 mg PO Q6H PRN PRN Reason: Fever >100.4 F Albuterol/Ipratropium (Duoneb 3 Mg/0.5 Mg (3 Ml) Ud) 3 ml INH RQ4 [facility] Last Admin: 03/11/17 12:15 Dose: 3 ml Folic Acid (Folic Acid) 1 mg PO DAILY [facility] Last Admin: 03/11/17 09:19 Dose: 1 mg Furosemide (Lasix) 40 mg IVP DAILY [facility] Last Admin: 03/11/17 09:33 Dose: 40 mg Fluconazole (Diflucan Iv 200 Mg/100 Ml Ns) 100 mls @ 100 mls/hr IVPB DAILY [facility] Last Admin: 03/11/17 09:23 Dose: 100 mls/hr Metronidazole (Flagyl 500mg/100ml Ns) 100 mls @ 100 mls/hr IVPB Q8H [facility] PRN Reason: Protocol Last Admin: 03/11/17 06:25 Dose: 100 mls/hr Sodium Chloride (Sodium Chloride 0.9%) 1,000 mls @ 1,000 mls/hr IV .Q1H [facility] Stop: 03/12/17 07:57 Last Admin: 03/11/17 08:00 Dose: 1,000 mls/hr Norepinephrine Bitartrate 8 mg (/ Dextrose) 258 mls @ 4.83 mls/hr IV .Q24H [facility] ; 2.5 MCG/MIN PRN Reason: Protocol Stop: 03/12/17 10:36 Last Titration: 03/11/17 11:43 Dose: 0 mcg/min, 0 mls/hr Sodium Chloride (Sodium Chloride 0.9%) 1,000 mls @ 200 mls/hr IV .Q5H [facility] Stop: 03/12/17 12:06 Last Admin: 03/11/17 12:09 Dose: 200 mls/hr Tigecycline 50 mg/ Sodium (Chloride) 100 mls @ 100 mls/hr IVPB Q12 [facility] PRN Reason: Protocol Stop: 03/11/17 21:59 Tigecycline 100 mg/ Sodium (Chloride) 100 mls @ 100 mls/hr IVPB ONCE [facility] Stop: 03/11/17 14:29 Lactulose (Enulose) 20 gm PO QID [facility] Last Admin: 03/11/17 09:19 Dose: 20 gm Lorazepam (Ativan) 2 mg IVP Q6 PRN PRN Reason: Agitation Last Admin: 03/10/17 18:41 Dose: 2 mg Methylprednisolone (Solu-Medrol) 40 mg IVP Q8 [facility] Last Admin: 03/11/17 09:17 Dose: 40 mg Morphine Sulfate (Morphine) 4 mg IVP Q6 PRN PRN Reason: Agitation Last Admin: 03/11/17 11:37 Dose: 4 mg Multivitamins/Minerals (Therapeutic-M Tab) 1 tab PO DAILY [facility] Last Admin: 03/11/17 09:20 Dose: 1 tab Nystatin (Mycostatin Cream) 1 applic TOP TID [facility] Last Admin: 03/11/17 09:25 Dose: 1 applic Nystatin (Nystop Topical Powder) 1 applic TOP QID [facility] Last Admin: 03/11/17 09:25 Dose: 1 applic Pantoprazole Sodium (Protonix Ec Tab) 40 mg PO DAILY [facility] Last Admin: 03/11/17 09:19 Dose: 40 mg Rifaximin (Xifaxan) 550 mg PO BID [facility] PRN Reason: Protocol Last Admin: 03/11/17 09:19 Dose: 550 mg Spironolactone (Aldactone) 50 mg NG DAILY [facility] Last Admin: 03/11/17 09:20 Dose: 50 mg Thiamine HCl (Vitamin B1 Tab) 100 mg PO DAILY [facility] Last Admin: 03/11/17 09:19 Dose: 100 mg - Labs Labs: 03/11/17 04:00 03/11/17 04:00 PT 20.1 Seconds (9.8-13.1) H 03/09/17 11:15 INR 1.8 (0.9-1.2) H 03/09/17 11:15 APTT 36.8 Seconds (25.6-37.1) 03/09/17 11:15
--- NOTE | 2017-03-11 16:58 | PCM.PROC ---
Procedures Attestation:: I certify that I have explained the specified Operation(s) or Procedure(s), risks, benefits and reasonable alternatives to the Patient and/or other person responsible. The opportunity was given to ask questions and all questions answered - Arterial Line Left Radial Aseptic technique was employed throughout the procedure: Hand Hygiene done prior to procedure, Full body sterile drape, Chloraprep Antiseptic: 30 second prep for IJ or SC sites Time Out Performed: Yes Pt. placed on Pulse Ox Monitor: Yes Central Line Prep: Chlorhexidine-Alcohol Combination Ultrasound Used for Placement: No Gauge (Size): 20 gauge (3 inch angiocath) Technique Used: Guide Wire Technique Secured by: Suture Post procedure dressing: Chlorhexidine disc (Biopatch) Patient Tolerated Procedure: well Immediate Complications: none Additional Comments: Indications: Vasopressor titration, frequent ABGs, excoriated, edematous upper extremities preventing easy Radial arterial punctures. Consent: performed under emergent conditions in ICU due to hypotension and shock state
[2017-03-11 17:04] LABS: VENOUS BLOOD GAS PCO2 52 mmHg (40-60); VENOUS BLOOD GAS PO2 63 mm/Hg (30-55); VENOUS BLOOD PH < 6.80 (7.32-7.43)
[2017-03-11] MEDS ORDERED: Dextrose 50% SYRINGE Inj (50 ml) IVP ONE (17:08)
[2017-03-11] MEDS ORDERED: Insulin Regular 100 units/ml SC STA (17:09)
[2017-03-11] MEDS ORDERED: Calcium Gluconate 4.65 mEq/10 ml Inj IV ONE (17:22)
[2017-03-11] MEDS: Sodium Bicarbonate 8.4% 100 MEQ in Dextrose 5%/0.9% NS 1,000 ML IV SCH (18:04)
[2017-03-11 18:11] LABS: ABG ALLEN TEST YES; ARTERIAL BLOOD GAS HCO3 3.7 mmol/L (21-28); ARTERIAL BLOOD GAS HEMOGLOBIN 12.2 g/dL (11.7-17.4); ARTERIAL BLOOD GAS O2 CAPACITY 16.7 mL/dL (16-24); ARTERIAL BLOOD GAS O2 CONTENT 16.3 ML/dL (15-23); ARTERIAL BLOOD GAS O2 SAT 97.6 % (95-98); ARTERIAL BLOOD GAS PCO2 46 mm/Hg (35-45); ARTERIAL BLOOD GAS PO2 97 mm/Hg (80-100); ARTERIAL BLOOD GAS TCO2 8.6 mmol/L (22-28)
[2017-03-11] MEDS: Sodium Bicarbonate 7.5% (0.9 MEQ/ML) 50ML INJ IV ONE (18:50)
[2017-03-12] MEDS: MethylPREDNISolone 40 mg Vial IVP SCH ×3 (00:04→17:04)
[2017-03-12] MEDS ORDERED: Sodium Bicarbonate 7.5% (0.9 MEQ/ML) 50ML INJ IV ONE ×3 (01:14→06:12)
[2017-03-12 02:03] LABS: ABG ALLEN TEST YES; ARTERIAL BLOOD GAS HCO3 7.7 mmol/L (21-28); ARTERIAL BLOOD GAS HEMOGLOBIN 11.1 g/dL (11.7-17.4); ARTERIAL BLOOD GAS O2 CAPACITY 15.7 mL/dL (16-24); ARTERIAL BLOOD GAS O2 CONTENT 15.9 ML/dL (15-23); ARTERIAL BLOOD GAS PCO2 42 mm/Hg (35-45); ARTERIAL BLOOD GAS PH 6.95 (7.35-7.45); ARTERIAL BLOOD GAS PO2 277 mm/Hg (80-100); ARTERIAL BLOOD GAS TCO2 10.5 mmol/L (22-28)
[2017-03-12] MEDS: SODIUM CHLORIDE 0.9% IV SCH ×6 (02:47→22:14)
[2017-03-12] MEDS: PHENYLEPHRINE IV SCH ×6 (02:47→22:14)
[2017-03-12] MEDS: Sodium Bicarbonate 8.4% 100 MEQ in Dextrose 5%/0.9% NS 1,000 ML IV SCH (03:55)
[2017-03-12] MEDS: Albuterol-Ipratrop 3 mg / 0.5 (3 ml) UD INH SCH ×6 (04:03→23:48)
[2017-03-12 05:32] LABS: ABG ALLEN TEST YES; ARTERIAL BLOOD GAS HCO3 5.7 mmol/L (21-28); ARTERIAL BLOOD GAS HEMOGLOBIN 10.8 g/dL (11.7-17.4); ARTERIAL BLOOD GAS O2 CAPACITY 15.4 mL/dL (16-24); ARTERIAL BLOOD GAS O2 CONTENT 15.5 ML/dL (15-23); ARTERIAL BLOOD GAS O2 SAT 100.8 % (95-98); ARTERIAL BLOOD GAS PCO2 35 mm/Hg (35-45); ARTERIAL BLOOD GAS PH 6.91 (7.35-7.45); ARTERIAL BLOOD GAS PO2 266 mm/Hg (80-100); ARTERIAL BLOOD GAS TCO2 8.1 mmol/L (22-28)
--- NOTE | 2017-03-12 05:45 | CON ---
RENAL CONSULTATION DATE: LOCATION: The patient is located in room 423, bed 1. REQUESTED BY: Ankur Lopez MD REASON FOR RENAL CONSULTATION: Acute renal failure, respiratory failure, and sepsis. HISTORY OF PRESENT ILLNESS: Ms. Jules is a 51-year-old obese female with a past medical history significant for COPD, pneumonia, EtOH abuse, hepatic encephalopathy, cirrhosis, brought in by EMS for evaluation of shortness of breath while the patient was at assisted. Patient denied any fever,chills, chest pain, abdominal pain, nausea, vomiting or diarrhea on admission. Patient was initially admitted to medical floor on 02/27/2017 for shortness of breath, and patient was subsequently found unresponsive and intubated and subsequently transferred to ICU. Now, patient is being treated for UTI and also VRE sepsis, on respirator. Patient is also being treated for hepatic encephalopathy. Patient on ventilator at this time, under sedation, not responding to verbal stimuli. PAST MEDICAL HISTORY: Significant for COPD, pneumonia, bronchitis, asthma, EtOH abuse, hepatic encephalopathy, and cirrhosis. PAST SURGICAL HISTORY: No history of surgeries. FAMILY HISTORY: Not significant. Patient was recently admitted to assisted. ALLERGIES: NO KNOWN DRUG ALLERGIES. SOCIAL HISTORY: Patient was ex-smoker and EtOH abuse. No drug abuse. CURRENT MEDICATIONS: Include as follows: Ativan 2 mg IV q. 6 hours p.r.n., Diflucan 200 mg daily, DuoNeb inhaler, Flagyl 500 mg q. 8 hours, folic acid 1 mg daily, morphine 4 mg IV q. 6 hours p.r.n., nystatin topical t.i.d., norepinephrine, also Protonix 40 mg, sodium bicarbonate at 125 mL per hour, methylprednisolone 40 mg IV q. 8 hours, multivitamins, Tylenol, thiamine 100 mg, Xifaxan 550 mg p.o. b.i.d., and spironolactone. REVIEW OF SYSTEMS: Significant for shortness of breath, respiratory failure on ventilator. All other review of systems are reviewed as per HPI. PHYSICAL EXAMINATION: Her vital signs and physical exam as follows: VITAL SIGNS: Blood pressure 107/72, pulse 132, respirations 16, temperature 98.3, saturation 95%. Height 5 feet 3 inches. Weight is 211 pounds. BMI 37.4. GENERAL: Ms. Jules is 51-year-old obese female, on ventilator. HEENT: Pupils are normal and reactive to light and accommodation. Conjunctivae pink. She has slight subconjunctival hemorrhage on the left side, on ventilator. Trachea is midline. LUNGS: Symmetric on both sides. Bilateral breath sounds present. Occasional basilar crackles. CARDIOVASCULAR SYSTEM: [place] at the fifth intercostal space, midclavicular line. S1, S2 audible. Tachycardic. No murmur or gallop. ABDOMEN: Distended, soft and mild. Diffuse tenderness and dullness on percussion in both flanks and also lower abdomen. Bowel sounds present. CENTRAL NERVOUS SYSTEM: Patient is on ventilator, not following commands at this time, under sedation. EXTREMITIES: No cyanosis, no clubbing. Patient has edema in both lower extremities, 1 to 2+. LABORATORY DATA: Includes as follows: WBC 31.7, hemoglobin 10.8, hematocrit 35.5, platelets 92; neutrophils 91, bands 7, lymph 1, and monos 1. The pH 7.13, pO2 of 102, pCO2 of 40, bicarb is 13, and saturation 99.1. Vent setting is 16,500, 400 tidal volume, FiO2 of 50%, PEEP of 5. Sodium 139, potassium 4.2, chloride 110, CO2 of 12, BUN 76, creatinine 1.8, glucose 132, calcium 8.2. As of 03/10/2017, BUN and creatinine of 76/1.2. OTHER LABORATORY DATA: Urine osmolality 382, urine creatinine is 66.7, urine sodium is 12, urine potassium is 26.8. Other laboratory data as of 65/1.0. As of 04/04/2016, BUN and creatinine /0.8. Other laboratory data as of 03/31/2016, urine culture positive for E. coli and Enterococcus and as of 04/02/2016, urine culture positive for E. coli. Sputum culture positive for E. coli on 03/06/2017. Blood culture positive for VRE on 03/06/2017; and as of 03/08/2017, blood culture positive for gram-positive cocci. I's and O's in the last 24 hours, intake is 2560 and output is 125 mL as of 03/11/2017. As of 03/10/2017, the intake is 1100, output is 200. ASSESSMENT: In summary, Ms. Jules is a 51-year-old middle-aged obese female with history of chronic obstructive pulmonary disease, asthma, cirrhosis of the liver, and ethyl alcohol abuse, status post pneumonia and delirium tremens who was recently admitted to assisted. From there, patient was admitted to hospital again with shortness of breath and found unresponsive later on and intubated, being treated for urinary tract infection and vancomycin-resistant Enterococcus sepsis with increased BUN and creatinine and decreased urine output. 1. Oliguric acute renal failure, rule out cirrhosis of the liver. 2. Vancomycin-resistant Enterococcus sepsis. 3. Status post urinary tract infection. 4. Ascites, rule out spontaneous bacterial peritonitis. 5. Respiratory failure. PLAN: Requested urine lytes and osmolality, which is now consistent with low urine sodium, cannot rule out cirrhosis of the liver. Consider diagnostic paracentesis and also continue IV antibiotics. Consider albumin, midodrine and may need octreotide. Consider GI evaluation. We will follow with you. Thank you for allowing me to participate in your patient's care. Overall prognosis is very poor. Marino Reid MD
[2017-03-12 06:35] LABS: CALCIUM 8.4 mg/dL (8.4-10.2)
[2017-03-12 06:51] LABS: HEMOGLOBIN 10.5 g/dL (12.0-16.0); MEAN CELL VOLUME 111.3 fl (81.0-99.0); MEAN CORPUSCULAR HGB CONC 28.7 g/dL (33.0-37.0); RBC 3.3 Mil/uL (3.80-5.20); RED CELL DISTRIBUTION WIDTH 18.9 % (11.5-14.5)
[2017-03-12 07:00] LABS: WHITE BLOOD COUNT 37.3 K/uL (4.8-10.8)
[2017-03-12] MEDS: metroNIDAZOLE 500mg/100ml NS 100 ML IVPB SCH ×4 (07:45→22:30)
[2017-03-12] MEDS: Pantoprazole 40 mg EC Tab PO SCH (08:58)
[2017-03-12] MEDS: Multivitamin With Minerals Tab PO SCH (08:58)
[2017-03-12] MEDS: Fluconazole IV 200mg/100 ml NS 100 ML IVPB SCH (09:03)
[2017-03-12] MEDS ORDERED: Phenylephrine 10 mg/ml Inj ONE (10:01)
[2017-03-12] MEDS ORDERED: Dextrose 50% SYRINGE Inj (50 ml) IVP ONE (10:44)
[2017-03-12] MEDS ORDERED: Sod Polystyrene Sulf 15 gm/60 ml Susp PO ONE (10:51)
[2017-03-12] MEDS ORDERED: Insulin Regular 100 units/ml IV ONE (10:58)
--- NOTE | 2017-03-12 12:33 | PN ---
DATE: 03/12/2017 SUBJECTIVE: Patient seen and examined. Interim events noted. Consults noted and appreciated. The patient remains in intensive care unit, on ventilator. Case discussed with decating machine operator. The patient is critically sick, on mechanical ventilation and also hypertensive even on vasopressors. PHYSICAL EXAMINATION: GENERAL: The patient is orally intubated, on mechanical ventilation via endotracheal tube, tolerating current setting without any distress although the patient is comatose, not responsive to any stimulus. VITAL SIGNS: As mentioned earlier, the patient is hypertensive and tachycardic. HEART: S1, S2. Tachycardic. LUNGS: Bilateral basal crepitations. ABDOMEN: Soft, distended with ascities. EXTREMITIES: No calf swelling. No tenderness. No acute ischemia. CENTRAL NERVOUS SYSTEM: Essentially comatose patient, . DIAGNOSTIC DATA: Available diagnostic data reviewed. Telemetry monitoring shows periods of tachycardia. ASSESSMENT AND PLAN: Overall, the patient's prognosis is very poor, outcome looks dismal, family is aware of the patient's condition. Plan as ordered. Ankur Lopez MD
[2017-03-12] MEDS: Sodium Bicarbonate 7.5% (0.9 MEQ/ML) 50ML INJ IV ONE (12:42)
--- NOTE | 2017-03-12 14:43 | CP.PCM.PN ---
Subjective - Date & Time of Evaluation Date of Evaluation: 03/12/17 Time of Evaluation: 14:40 - Subjective Subjective: pt is seen and examined, follow up consult is dictated #[id number] pt is hypotensive 47/33, pr 104 pupils are dilated, fixed, 1. hyperkalemia 2. met. acidosis, most likley sec to severe lactic acidosis sec to hypotension 3. briseida 4. sepsis 5. cirrhosis of liver treat hyperkalemia medically , s/p d50 , nahco3, insulin, ca gluconate, kayexalate check lactic acid level prognosis is extremely poor pt's family at bed side Objective - Vital Signs/Intake and Output Vital Signs (last 24 hours): Temp Pulse Resp BP Pulse Ox 98.0 F 103 H 20 49/33 L 100 03/12/17 12:00 03/12/17 14:00 03/12/17 13:00 03/12/17 14:00 03/12/17 12:00 Intake and Output: 03/12/17 03/12/17 06:59 18:59 Intake Total 1004 3087 Output Total 600 Balance 1004 2487 - Medications Medications: Current Medications Acetaminophen (Tylenol 325mg Tab) 650 mg PO Q6H PRN PRN Reason: Pain, Mild (1-3) Acetaminophen (Tylenol 325mg Tab) 650 mg PO Q6H PRN PRN Reason: Fever >100.4 F Albuterol/Ipratropium (Duoneb 3 Mg/0.5 Mg (3 Ml) Ud) 3 ml INH RQ4 [facility] Last Admin: 03/12/17 11:36 Dose: 3 ml Folic Acid (Folic Acid) 1 mg PO DAILY [facility] Last Admin: 03/12/17 08:58 Dose: Not Given Fluconazole (Diflucan Iv 200 Mg/100 Ml Ns) 100 mls @ 100 mls/hr IVPB DAILY [facility] Last Admin: 03/12/17 09:03 Dose: 100 mls/hr Metronidazole (Flagyl 500mg/100ml Ns) 100 mls @ 100 mls/hr IVPB Q8H [facility] PRN Reason: Protocol Last Admin: 03/12/17 07:45 Dose: 100 mls/hr Sodium Bicarbonate 100 meq/ (Dextrose/Sodium Chloride) 1,100 mls @ 125 mls/hr IV .Q8H48M [facility] Stop: 03/12/17 17:15 Last Admin: 03/12/17 03:55 Dose: 125 mls/hr Norepinephrine Bitartrate 8 mg (/ Dextrose) 258 mls @ 15.48 mls/hr IV .[id number] [facility]; 8 MCG/MIN PRN Reason: Protocol Stop: 03/12/17 17:51 Last Admin: 03/12/17 12:36 Dose: 28 mcg/min, 54.18 mls/hr Phenylephrine HCl 40 mg/ (Sodium Chloride) 1,004 mls @ 180.72 mls/hr IV .Q5H34M [facility]; 120 MCG/MIN PRN Reason: Protocol Last Admin: 03/12/17 10:34 Dose: 180 mcg/min, 271.08 mls/hr Lactulose (Enulose) 20 gm PO QID [facility] Last Admin: 03/12/17 12:37 Dose: Not Given Lorazepam (Ativan) 2 mg IVP Q6 PRN PRN Reason: Agitation Last Admin: 03/10/17 18:41 Dose: 2 mg Methylprednisolone (Solu-Medrol) 40 mg IVP Q8 [facility] Last Admin: 03/12/17 09:03 Dose: 40 mg Morphine Sulfate (Morphine) 4 mg IVP Q6 PRN PRN Reason: Agitation Last Admin: 03/11/17 11:37 Dose: 4 mg Multivitamins/Minerals (Therapeutic-M Tab) 1 tab PO DAILY [facility] Last Admin: 03/12/17 08:58 Dose: Not Given Nystatin (Mycostatin Cream) 1 applic TOP TID [facility] Last Admin: 03/12/17 12:38 Dose: 1 applic Nystatin (Nystop Topical Powder) 1 applic TOP QID [facility] Last Admin: 03/12/17 12:37 Dose: 1 applic Pantoprazole Sodium (Protonix Ec Tab) 40 mg PO DAILY [facility] Last Admin: 03/12/17 08:58 Dose: Not Given Rifaximin (Xifaxan) 550 mg PO BID [facility] PRN Reason: Protocol Last Admin: 03/12/17 08:59 Dose: Not Given Thiamine HCl (Vitamin B1 Tab) 100 mg PO DAILY [facility] Last Admin: 03/12/17 08:59 Dose: Not Given - Labs Labs: 03/12/17 06:00 03/12/17 06:00 PT 20.1 Seconds (9.8-13.1) H 03/09/17 11:15 INR 1.8 (0.9-1.2) H 03/09/17 11:15 APTT 36.8 Seconds (25.6-37.1) 03/09/17 11:15
--- NOTE | 2017-03-12 20:26 | PN ---
CRITICAL CARE PROGRESS NOTE DATE OF SERVICE: 03/12/2017 LOCATION: The patient is in ICU, bed #423. TIME SPENT: 35 minutes. HISTORY OF PRESENT ILLNESS: The patient is seen and evaluated at the bedside. Past medical, surgical, social history reviewed overnight, intubated, on mechanical ventilation, on AC 20, tidal volume of 400, FiO2 100%, no sedation, remains unresponsive, eyes closed, observed rate 20, exhale tidal volume 410, minute ventilation 7.1 liters, peak airway pressure 46, mean airway pressure 18, end-tidal CO2 27, remained hypotensive, on phenylephrine and Levophed, refractory metabolic acidosis, status post multiple ampules of bicarbonate this morning plus on bicarb drip, pH remains less than 7. PHYSICAL EXAMINATION: VITAL SIGNS: Temperature 98.6, heart rate 113, blood pressure 51/32 to 38, intake 3012, positive balance 312, weight 250 pounds. HEENT: Eyes closed, eye shield to prevent exposure keratitis, pupils reactive but sluggish, sclerae icteric. NECK: Supple, short. Trachea central. CHEST: Bilateral breath sounds, diminished in intensity. HEART: Rhythm regular. S1, S2 rapid. ABDOMEN: Distended, pain on palpation of abdomen, no diffuse tenderness. EXTREMITIES: Lower extremities positive for edema, DP palpable, capillary refill less than 2 seconds. NEUROLOGIC: Remains lethargic. SKIN: Negative for rash. CURRENT MEDICATIONS: Include Tylenol 650 q. 6 p.r.n. for moderate pain, Tylenol 650 q. 6 for temperature more than 100.4, albuterol/Atrovent inhalation 3 mL via nebulizer q.4h., Diflucan 200 mg in 100 mL daily, folic acid 1 mg daily, lactulose 20 g p.o. 4 times daily, Ativan 2 mg IV q. 6 p.r.n. for agitation, Solu-Medrol 40 IV q. 8h., lorazepam 2 mg IV q. 6 p.r.n., multivitamin with minerals, Therapeutic-M 1 tablet daily, Levophed titrating to systolic pressure 100, nystatin topical powder to apply topically 4 times daily, Protonix 40 p.o. daily, phenylephrine drip titrating to systolic pressure 100, Xifaxan 550 mg twice daily, D5W with sodium bicarbonate at 125 mL per hour, thiamine 100 mg p.o. daily. LABORATORY DATA: WBC 37.3, hemoglobin 10.5, hematocrit 36.7, platelet count 91, PT 20.1, INR 1.8, PTT 36.8. ABG: pH 6.91, pCO2 35, pO2 266. On AC 20, 400, FIO2 100%, PEEP 5. SMA-7: Sodium 139, potassium 6.1, chloride 111, CO2 7, blood urea nitrogen 70, creatinine 2.7, random glucose 116, calcium 8.04. Microbiology: Blood culture, Gram-positive cocci. Urine culture, no growth reported. Sputum culture positive for E. coli. Urine culture positive for E. coli, also for Enterococcus faecium. IMPRESSION AND PLAN: 1. Neurology: Septic, metabolic, toxic encephalopathy, worsening over the time. 2. Respiratory failure, suspected pneumonia, sputum culture positive for Escherichia coli, continue antibiotic, currently on fluconazole 200 mg intravenous daily, Flagyl 500 mg intravenous q.8. 3. Cardiac: Hypotension, on multiple pressors with reduced perfusion, significant metabolic acidosis, on sodium bicarbonate drip. 4. Renal: Hyperkalemia, worsening renal function with reduced urine output, given D50 one ampule with 10 units of insulin, continue lactulose, hold spironolactone. 5. Hematology: Leukocytosis secondary to sepsis, suspected intra-abdominal process, awaiting CT scan, unstable to accomplish the CAT scan down in Radiology suite, anemia of chronic disease, thrombocytopenia related to chronic EtOH liver disease. 6. Endocrine. Maintain blood sugar less than 180. 7. Infectious Disease: Sepsis secondary to pneumonia, Escherichia coli, Gram-positive bacteremia, on aztreonam and Zyvox, appreciate Infectious Disease followup. 8. Gastrointestinal: Hepatic encephalopathy, ammonia level elevated, on rifaximin and lactulose, continue on gastrostomy tube feedings, gastrointestinal prophylaxis with Protonix, deep venous thrombosis, on sequential compression device, hold anticoagulation secondary to liver cirrhosis and underlying coagulopathy. Prognosis remains guarded. Cy Moss MD [facility]
[2017-03-13] MEDS: MethylPREDNISolone 40 mg Vial IVP SCH ×3 (01:51→17:10)
[2017-03-13] MEDS: PHENYLEPHRINE IV SCH ×5 (01:56→18:20)
[2017-03-13] MEDS: SODIUM CHLORIDE 0.9% IV SCH ×5 (01:56→18:20)
[2017-03-13] MEDS: Sodium Bicarbonate 8.4% 100 MEQ in Dextrose 5%/0.45% NS 1,000 ML IV SCH ×2 (03:18→13:23)
[2017-03-13] MEDS: Albuterol-Ipratrop 3 mg / 0.5 (3 ml) UD INH SCH ×4 (04:04→15:32)
[2017-03-13 06:29] LABS: HEMOGLOBIN 8.5 g/dL (12.0-16.0); MEAN CORPUSCULAR HEMOGLOBIN 33.2 pg (27.0-31.0); MEAN CORPUSCULAR HGB CONC 28.1 g/dL (33.0-37.0); RBC 2.55 Mil/uL (3.80-5.20); RED CELL DISTRIBUTION WIDTH 19.8 % (11.5-14.5); WHITE BLOOD COUNT 32.1 K/uL (4.8-10.8)
[2017-03-13] MEDS: metroNIDAZOLE 500mg/100ml NS 100 ML IVPB SCH ×2 (06:35→14:16)
[2017-03-13 06:39] LABS: MEAN CELL VOLUME 118.3 fl (81.0-99.0)
[2017-03-13] MEDS: Fluconazole IV 200mg/100 ml NS 100 ML IVPB SCH (08:25)
[2017-03-13] MEDS: Pantoprazole 40 mg EC Tab PO SCH (08:27)
[2017-03-13] MEDS: Multivitamin With Minerals Tab PO SCH (08:28)
--- NOTE | 2017-03-13 09:37 | PN ---
DATE: 03/13/2017 SUBJECTIVE: The patient is seen and examined. Interim events noted. Consult noted and appreciated. Partner Cco's intervention noted and appreciated. The patient remains in intensive care unit, on ventilator, not able to provide any history or review of systems. PHYSICAL EXAMINATION: GENERAL: The patient is orally intubated on mechanical ventilation via endotracheal tube, remains comatose and unresponsive. VITAL SIGNS: The patient is severely hypertensive on vasopressors. HEART: S1 and S2, tachycardic. LUNGS: Good bilateral air exchange. ABDOMEN: Distended . EXTREMITIES: No calf swelling. No tenderness. No acute ischemia. CENTRAL NERVOUS SYSTEM: Essentially unchanged. DIAGNOSTIC DATA: Available diagnostic data reviewed. Telemetry monitoring shows tachycardia. ASSESSMENT AND PLAN: Overall, the patient is essentially comatose and terminal. Prognosis remains grave. Outcome looks dismal. Plan as ordered. Ankur Lopez MD
--- NOTE | 2017-03-13 09:58 | CP.PCM.PN ---
Subjective - Date & Time of Evaluation Date of Evaluation: 03/13/17 Time of Evaluation: 10:00 - Subjective Subjective: UNRESPONSIVE STILL INTUBATED AND ON THE VENT BLEEDING VIA ORAL MUCOSA NOW MADE A DNR[CODE STATUS] Objective - Vital Signs/Intake and Output Vital Signs (last 24 hours): Temp Pulse Resp BP Pulse Ox 98.4 F 79 20 38/29 L 98 03/13/17 08:00 03/13/17 08:57 03/13/17 08:57 03/13/17 08:57 03/13/17 08:57 Intake and Output: 03/13/17 03/13/17 06:59 18:59 Intake Total 4862 125 Output Total 300 Balance 4562 125 - Medications Medications: Current Medications Acetaminophen (Tylenol 325mg Tab) 650 mg PO Q6H PRN PRN Reason: Pain, Mild (1-3) Acetaminophen (Tylenol 325mg Tab) 650 mg PO Q6H PRN PRN Reason: Fever >100.4 F Albuterol/Ipratropium (Duoneb 3 Mg/0.5 Mg (3 Ml) Ud) 3 ml INH RQ4 [facility] Last Admin: 03/13/17 07:22 Dose: 3 ml Folic Acid (Folic Acid) 1 mg PO DAILY [facility] Last Admin: 03/13/17 08:33 Dose: Not Given Fluconazole (Diflucan Iv 200 Mg/100 Ml Ns) 100 mls @ 100 mls/hr IVPB DAILY [facility] Last Admin: 03/13/17 08:25 Dose: 100 mls/hr Metronidazole (Flagyl 500mg/100ml Ns) 100 mls @ 100 mls/hr IVPB Q8H [facility] PRN Reason: Protocol Last Admin: 03/13/17 06:35 Dose: 100 mls/hr Phenylephrine HCl 40 mg/ (Sodium Chloride) 1,004 mls @ 180.72 mls/hr IV .Q5H34M [facility]; 120 MCG/MIN PRN Reason: Protocol Last Admin: 03/13/17 06:32 Dose: 180 mcg/min, 271.08 mls/hr Sodium Bicarbonate 100 meq/ (Dextrose/Sodium Chloride) 1,100 mls @ 125 mls/hr IV .Q8H48M [facility] Stop: 03/14/17 02:21 Last Admin: 03/13/17 03:18 Dose: 125 mls/hr Norepinephrine Bitartrate 16 (mg/ Dextrose) 266 mls @ 29.92 mls/hr IV .Q8H54M [facility]; 30 MCG/MIN PRN Reason: Protocol Stop: 03/13/17 11:53 Last Admin: 03/13/17 03:36 Dose: 30 mcg/min, 29.92 mls/hr Lactulose (Enulose) 20 gm PO QID [facility] Last Admin: 03/13/17 08:33 Dose: Not Given Lorazepam (Ativan) 2 mg IVP Q6 PRN PRN Reason: Agitation Last Admin: 03/10/17 18:41 Dose: 2 mg Methylprednisolone (Solu-Medrol) 40 mg IVP Q8 [facility] Last Admin: 03/13/17 08:26 Dose: 40 mg Morphine Sulfate (Morphine) 4 mg IVP Q6 PRN PRN Reason: Agitation Last Admin: 03/11/17 11:37 Dose: 4 mg Multivitamins/Minerals (Therapeutic-M Tab) 1 tab PO DAILY [facility] Last Admin: 03/13/17 08:28 Dose: Not Given Nystatin (Mycostatin Cream) 1 applic TOP TID [facility] Last Admin: 03/13/17 08:26 Dose: 1 applic Nystatin (Nystop Topical Powder) 1 applic TOP QID [facility] Last Admin: 03/13/17 08:27 Dose: 1 applic Pantoprazole Sodium (Protonix Ec Tab) 40 mg PO DAILY [facility] Last Admin: 03/13/17 08:27 Dose: Not Given Rifaximin (Xifaxan) 550 mg PO BID [facility] PRN Reason: Protocol Last Admin: 03/13/17 08:28 Dose: Not Given Thiamine HCl (Vitamin B1 Tab) 100 mg PO DAILY [facility] Last Admin: 03/13/17 08:28 Dose: Not Given - Labs Labs: 03/13/17 05:30 03/12/17 06:00 PT 20.1 Seconds (9.8-13.1) H 03/09/17 11:15 INR 1.8 (0.9-1.2) H 03/09/17 11:15 APTT 36.8 Seconds (25.6-37.1) 03/09/17 11:15 - Constitutional Appears: Chronically Ill - Head Exam Head Exam: ATRAUMATIC, NORMAL INSPECTION, NORMOCEPHALIC - Eye Exam Eye Exam: Periorbital swelling, Scleral icterus - ENT Exam ENT Exam: Mucous Membranes Moist, Normal Exam - Neck Exam Neck Exam: Normal Inspection. absent: Lymphadenopathy - Respiratory Exam Respiratory Exam: Rales Additional comments: ETT IN PLACE - Cardiovascular Exam Cardiovascular Exam: REGULAR RHYTHM, +S1, +S2. absent: Murmur - GI/Abdominal Exam GI & Abdominal Exam: Distended. absent: Tenderness - Rectal Exam Rectal Exam: NORMAL INSPECTION - Extremities Exam Extremities Exam: absent: Joint Swelling, Pedal Edema - Back Exam Back Exam: NORMAL INSPECTION - Skin Skin Exam: Dry, Intact, Normal Color, Warm Assessment and Plan - Assessment and Plan (Free Text) Assessment: ACUTE RESPIRATORY FAILURE MULTIORGAN FAILURE Plan: PROGNOSIS IS POOR
[2017-03-13 12:19] VITALS: TEMP 95.6
--- NOTE | 2017-03-13 14:20 | CP.PCM.PN ---
Subjective - Date & Time of Evaluation Date of Evaluation: 03/13/17 Time of Evaluation: 08:00 - Subjective Subjective: latest blood c/s neg Dr leon on board IV rx in progress prognosis remains poor Objective - Vital Signs/Intake and Output Vital Signs (last 24 hours): Temp Pulse Resp BP Pulse Ox 95.6 F L 74 20 38/28 L 100 03/13/17 12:00 03/13/17 13:00 03/13/17 13:00 03/13/17 13:00 03/13/17 13:00 Intake and Output: 03/13/17 03/13/17 06:59 18:59 Intake Total 4862 2733 Output Total 300 Balance 4562 2733 - Medications Medications: Current Medications Acetaminophen (Tylenol 325mg Tab) 650 mg PO Q6H PRN PRN Reason: Pain, Mild (1-3) Acetaminophen (Tylenol 325mg Tab) 650 mg PO Q6H PRN PRN Reason: Fever >100.4 F Albuterol/Ipratropium (Duoneb 3 Mg/0.5 Mg (3 Ml) Ud) 3 ml INH RQ4 [facility] Last Admin: 03/13/17 11:19 Dose: 3 ml Folic Acid (Folic Acid) 1 mg PO DAILY [facility] Last Admin: 03/13/17 08:33 Dose: Not Given Fluconazole (Diflucan Iv 200 Mg/100 Ml Ns) 100 mls @ 100 mls/hr IVPB DAILY [facility] Last Admin: 03/13/17 08:25 Dose: 100 mls/hr Metronidazole (Flagyl 500mg/100ml Ns) 100 mls @ 100 mls/hr IVPB Q8H [facility] PRN Reason: Protocol Last Admin: 03/13/17 14:16 Dose: 100 mls/hr Phenylephrine HCl 40 mg/ (Sodium Chloride) 1,004 mls @ 180.72 mls/hr IV .Q5H34M [facility]; 120 MCG/MIN PRN Reason: Protocol Last Admin: 03/13/17 14:15 Dose: 180 mcg/min, 271.08 mls/hr Sodium Bicarbonate 100 meq/ (Dextrose/Sodium Chloride) 1,100 mls @ 125 mls/hr IV .Q8H48M [facility] Stop: 03/14/17 02:21 Last Admin: 03/13/17 13:23 Dose: 125 mls/hr Norepinephrine Bitartrate 16 (mg/ Dextrose) 266 mls @ 28.02 mls/hr IV .Q9H30M [facility]; 28.1 MCG/MIN PRN Reason: Protocol Stop: 03/13/17 22:19 Last Admin: 03/13/17 13:02 Dose: 28.02 mls/hr Lactulose (Enulose) 20 gm PO QID [facility] Last Admin: 03/13/17 14:17 Dose: Not Given Lorazepam (Ativan) 2 mg IVP Q6 PRN PRN Reason: Agitation Last Admin: 03/10/17 18:41 Dose: 2 mg Methylprednisolone (Solu-Medrol) 40 mg IVP Q8 [facility] Last Admin: 03/13/17 08:26 Dose: 40 mg Multivitamins/Minerals (Therapeutic-M Tab) 1 tab PO DAILY [facility] Last Admin: 03/13/17 08:28 Dose: Not Given Nystatin (Mycostatin Cream) 1 applic TOP TID [facility] Last Admin: 03/13/17 14:17 Dose: Not Given Nystatin (Nystop Topical Powder) 1 applic TOP QID [facility] Last Admin: 03/13/17 14:18 Dose: Not Given Pantoprazole Sodium (Protonix Ec Tab) 40 mg PO DAILY [facility] Last Admin: 03/13/17 08:27 Dose: Not Given Rifaximin (Xifaxan) 550 mg PO BID [facility] PRN Reason: Protocol Last Admin: 03/13/17 08:28 Dose: Not Given Thiamine HCl (Vitamin B1 Tab) 100 mg PO DAILY [facility] Last Admin: 03/13/17 08:28 Dose: Not Given - Labs Labs: 03/13/17 05:30 03/12/17 06:00 PT 20.1 Seconds (9.8-13.1) H 03/09/17 11:15 INR 1.8 (0.9-1.2) H 03/09/17 11:15 APTT 36.8 Seconds (25.6-37.1) 03/09/17 11:15 - Constitutional Appears: Chronically Ill - Head Exam Head Exam: NORMOCEPHALIC - Eye Exam Eye Exam: PERRL - ENT Exam ENT Exam: Mucous Membranes Dry Additional comments: intubated - Neck Exam Neck Exam: absent: Lymphadenopathy - Respiratory Exam Respiratory Exam: Decreased Breath Sounds - Cardiovascular Exam Cardiovascular Exam: REGULAR RHYTHM - GI/Abdominal Exam GI & Abdominal Exam: Distended, Soft - Rectal Exam Rectal Exam: Deferred - Exam Exam: NORMAL INSPECTION - Extremities Exam Extremities Exam: absent: Pedal Edema - Back Exam Back Exam: absent: CVA tenderness (L), CVA tenderness (R) - Neurological Exam Neurological Exam: Altered Assessment and Plan (1) Acute and chronic respiratory failure with hypercapnia Status: Acute (2) Hepatic encephalopathy Status: Acute
--- NOTE | 2017-03-13 14:27 | CP.PCM.PN ---
Subjective - Date & Time of Evaluation Date of Evaluation: 03/13/17 Time of Evaluation: 14:26 - Subjective Subjective: pt is seen and examined, follow up consult is dictated , poor prognosis #[id number] Objective - Vital Signs/Intake and Output Vital Signs (last 24 hours): Temp Pulse Resp BP Pulse Ox 95.6 F L 74 20 38/28 L 100 03/13/17 12:00 03/13/17 13:00 03/13/17 13:00 03/13/17 13:00 03/13/17 13:00 Intake and Output: 03/13/17 03/13/17 06:59 18:59 Intake Total 4862 2733 Output Total 300 Balance 4562 2733 - Medications Medications: Current Medications Acetaminophen (Tylenol 325mg Tab) 650 mg PO Q6H PRN PRN Reason: Pain, Mild (1-3) Acetaminophen (Tylenol 325mg Tab) 650 mg PO Q6H PRN PRN Reason: Fever >100.4 F Albuterol/Ipratropium (Duoneb 3 Mg/0.5 Mg (3 Ml) Ud) 3 ml INH RQ4 [facility] Last Admin: 03/13/17 11:19 Dose: 3 ml Folic Acid (Folic Acid) 1 mg PO DAILY [facility] Last Admin: 03/13/17 08:33 Dose: Not Given Fluconazole (Diflucan Iv 200 Mg/100 Ml Ns) 100 mls @ 100 mls/hr IVPB DAILY [facility] Last Admin: 03/13/17 08:25 Dose: 100 mls/hr Metronidazole (Flagyl 500mg/100ml Ns) 100 mls @ 100 mls/hr IVPB Q8H [facility] PRN Reason: Protocol Last Admin: 03/13/17 14:16 Dose: 100 mls/hr Phenylephrine HCl 40 mg/ (Sodium Chloride) 1,004 mls @ 180.72 mls/hr IV .Q5H34M [facility]; 120 MCG/MIN PRN Reason: Protocol Last Admin: 03/13/17 14:15 Dose: 180 mcg/min, 271.08 mls/hr Sodium Bicarbonate 100 meq/ (Dextrose/Sodium Chloride) 1,100 mls @ 125 mls/hr IV .Q8H48M [facility] Stop: 03/14/17 02:21 Last Admin: 03/13/17 13:23 Dose: 125 mls/hr Norepinephrine Bitartrate 16 (mg/ Dextrose) 266 mls @ 28.02 mls/hr IV .Q9H30M [facility]; 28.1 MCG/MIN PRN Reason: Protocol Stop: 03/13/17 22:19 Last Admin: 03/13/17 13:02 Dose: 28.02 mls/hr Linezolid (Zyvox 600mg/300ml D5w) 600 mg in 300 mls @ 300 mls/hr IVPB Q12 [facility] PRN Reason: Protocol Lactulose (Enulose) 20 gm PO QID [facility] Last Admin: 03/13/17 14:17 Dose: Not Given Lorazepam (Ativan) 2 mg IVP Q6 PRN PRN Reason: Agitation Last Admin: 03/10/17 18:41 Dose: 2 mg Methylprednisolone (Solu-Medrol) 40 mg IVP Q8 [facility] Last Admin: 03/13/17 08:26 Dose: 40 mg Multivitamins/Minerals (Therapeutic-M Tab) 1 tab PO DAILY [facility] Last Admin: 03/13/17 08:28 Dose: Not Given Nystatin (Mycostatin Cream) 1 applic TOP TID [facility] Last Admin: 03/13/17 14:17 Dose: Not Given Nystatin (Nystop Topical Powder) 1 applic TOP QID [facility] Last Admin: 03/13/17 14:18 Dose: Not Given Pantoprazole Sodium (Protonix Ec Tab) 40 mg PO DAILY [facility] Last Admin: 03/13/17 08:27 Dose: Not Given Rifaximin (Xifaxan) 550 mg PO BID [facility] PRN Reason: Protocol Last Admin: 03/13/17 08:28 Dose: Not Given Thiamine HCl (Vitamin B1 Tab) 100 mg PO DAILY [facility] Last Admin: 03/13/17 08:28 Dose: Not Given - Labs Labs: 03/13/17 05:30 03/12/17 06:00 PT 20.1 Seconds (9.8-13.1) H 03/09/17 11:15 INR 1.8 (0.9-1.2) H 03/09/17 11:15 APTT 36.8 Seconds (25.6-37.1) 03/09/17 11:15
[2017-03-13 17:02] VITALS: RESP 20
--- NOTE | 2017-03-13 19:55 | CP.PCM.PRO ---
Pronouncement of Note - Clinical Findings Physical Exam: No Response Verbal/Painful Stimuli, Absent Peripheral Pulses{ Carotid & Femoral}, Absent Heart & Breath Sounds, No Pupillary Light Reflex, No Corneal Reflex, Pupils Fixed & Dilated, Absence of Vital Signs - Pronouncement Time Time of Pronouncement of : 19:40 - Notifications Pronouncement Notifications: Family Notified, Atending Notified Paint Formulator Notified: No - Autopsy Autopsy Requested: No [place] [id number] Additional Comments: This patient was DNR
--- NOTE | 2017-03-13 20:07 | PN ---
DATE: 03/13/2017 FOLLOWUP RENAL CONSULTATION LOCATION: The patient is located in ICU, 423. REQUESTED BY: Ankur Lopez MD REASON FOR FOLLOWUP: Acute renal failure and sepsis. SUBJECTIVE: Ms. Jules is an about 51-year-old obese female with a history of COPD, pneumonia, EtOH abuse, hepatic encephalopathy, cirrhosis of the liver, who was admitted from the care home with shortness of breath. Subsequently, the patient developed respiratory failure and intubated and transferred to ICU. The patient is now hypotensive, not responding to deep painful stimuli. The patient is hypotensive for the last 36 hours and not breathing over the vent. The patient is DNR. PHYSICAL EXAMINATION: GENERAL: Ms. Jules is a 51-year-old middle-aged obese female. VITAL SIGNS: As follows: Blood pressure 38/28, pulse 74, respirations 20, temperature 95.6, saturation 100%. HEENT: Pupils dilated, fixed, not responding to light, on ventilator. LUNGS: Symmetric on both sides. Bilateral breath sounds present. CARDIOVASCULAR SYSTEM: S1, S2 audible. No murmur or gallop. ABDOMEN: Soft. No bowel sounds. CENTRAL NERVOUS SYSTEM: The patient is on ventilator, not responding to deep painful stimuli. Pupils dilated, fixed. Not breathing over the vent with a vent setting AC 20 and the patient is breathing with respiratory rate of 20. EXTREMITIES: No cyanosis, no clubbing, 3+ edema present, and cold to touch. MEDICATIONS: Reviewed. LABORATORY DATA: As of 03/13/2017, WBC 32.1, hemoglobin 8.5, hematocrit is 30.2, platelets 48. No other labs are available. ASSESSMENT AND PLAN: In summary, Ms. Jules is a 51-year-old middle-aged obese female with history of chronic obstructive pulmonary disease, ethyl alcohol abuse, cirrhosis of the liver, hepatic encephalopathy, being treated for urinary tract infection and vancomycin-resistant Enterococcus sepsis with ascites and respiratory failure and low bicarbonate. Yesterday, bicarbonate was 7 and potassium 6.1 and pH about 6.9. 1. Acute renal failure secondary to sepsis and hypotension. 2. Metabolic acidosis secondary to renal failure and lactic acidosis. 3. Hyperkalemia. 4. Vancomycin-resistant Enterococci sepsis. 5. Respiratory failure. Continue supportive care and we will sign off the case. Overall prognosis is extremely poor. I discussed with the patient's niece at bedside. Thank you for allowing me to participate in your patient's care. Marino Reid MD
[2017-03-13] MEDS ORDERED: Linezolid 600 mg in D5W 300 ml 600 MG/300 ML BAG IVPB SCH (21:00)
[2017-03-13 22:29] VITALS: BP 40/34; PULSE 41; O2SAT 91
--- NOTE | 2017-03-14 08:27 | PN ---
DATE: 03/13/2017 CRITICAL CARE PROGRESS NOTE LOCATION: Patient is in ICU, bed 423. TIME SPENT: 35 minutes. SUBJECTIVE: Patient is seen and evaluated at the bedside. Past medical, surgical and social history reviewed. Over night, intubated on mechanical ventilation. On AC/PRVC rate 20, tidal volume 400, FiO2 99%. PEEP of 5. Observed rate 20, exhaled tidal volume 410, minute ventilation 7.4 liters, peak airway pressure 50, mean airway pressure 23, end-tidal CO2 13. PHYSICAL EXAMINATION: HEAD, EYES, EARS, NOSE AND THROAT: Pupils 2 to 3 mm, poorly reactive. Sclerae anicteric. NECK: Supple, short. Trachea is central. CHEST: Bilateral breath sounds, diminished in intensity. HEART: Rhythm regular. S1, S2 rapid. ABDOMEN: Distended. Grimaces to pain on palpation. EXTREMITIES: Lower extremities positive for edema. DP palpable. Capillary refill less than 2 seconds. NEUROLOGIC: Lethargic. Not interactive. Grimaces to pain. SKIN: Negative for rash. CURRENT MEDICATIONS: Tylenol 650 q.6 for temperature more than 100.5, albuterol/Atrovent inhalation 3 mL via nebulizer q.4 hours, Diflucan 200 mg daily, folic acid 1 mg daily, lactulose 20 mg four times daily, Ativan 2 mg IV q.6 p.r.n. for agitation, Solu-Medrol 40 mg IV q.8, lorazepam 2 mg IV q.6. LABORATORY DATA: WBC 32.1, hemoglobin 8.5, hematocrit 30.2, platelet count 48. PT 20.1, INR 1.8, PTT 36.8, fibrinogen 260. ABG: PH 6.91, pCO2 35, pO2 266, saturation 100.8, on AC 20, 100%, tidal volume of 400. PEEP of 5. IMPRESSION: Neurologic: Septic metabolic and toxic encephalopathy. Remains lethargic. Grimaces only to pain. Cardiac: Hypertension, on multiple pressors, secondary to ongoing systemic inflammatory response syndrome/sepsis, profound metabolic acidosis, on sodium bicarbonate drip. Continue pressor support to maintain systolic 100 and above. Respiratory: Failure, intubated on mechanical ventilation, not a weanable candidate. Sputum culture positive for Escherichia coli. Concern pneumonia and fungal infection, on fluconazole, Flagyl 500 mg IV q.8 hours. Renal: Hyperkalemia, worsening renal function. No repeat labs done as the patient remains poor prognosis, do not resuscitate and probably for comfort care. Endocrine: No acute issues. Skin: Without rash. Gastrointestinal: Abdomen distention, massive ascites. NG draining coffee ground. Liver cirrhosis, end-stage. Prognosis remains guarded. Cy Moss MD
--- NOTE | 2017-03-14 09:01 | CON ---
DATE OF SERVICE: 03/12/2017 LOCATION: Patient is located in ICU, room 423. REASON FOR FOLLOWUP: Acute renal failure and sepsis. SUBJECTIVE: Ms. Jules is a 51-year-old obese female with a past medical history of asthma, bronchitis, COPD, EtOH abuse, cirrhosis of the liver and hepatic encephalopathy, who was admitted with shortness of breath while the patient was in the residential and admitted to telemetry for management of COPD exacerbation and subsequently ICU evaluation was called for lethargy. ABG showed hypercapnic respiratory failure and patient was placed on BiPAP and subsequently admitted to ICU for the sepsis. Patient is being treated for UTI and also we had a blood culture later on positive for VRE. Patient is on ventilator, hypotensive, not responding to deep, painful stimuli. PHYSICAL EXAMINATION: Her vital signs and physical exam are as follows: GENERAL: Ms. Jules is a 51-year-old middle-aged obese female, on ventilator, not responding to verbal stimuli. VITAL SIGNS: Blood pressure 45/32, pulse 106, respiration 36 and temperature 97.8. HEENT: Pupils dilated and fixed, not reactive to light, on ventilator, the trachea is midline. LUNGS: Symmetric on both sides. Bilateral breath sounds present. Bilateral basal crackles present. CARDIOVASCULAR SYSTEM: S1 and S2 audible. Tachycardic. ABDOMEN: Distended, tense, sluggish bowel sounds. CENTRAL NERVOUS SYSTEM: Patient is on ventilator, not responding to deep, painful stimuli. EXTREMITIES: No cyanosis, no clubbing and cold to touch in both lower extremities and 2+ edema in both lower extremities. CURRENT MEDICATIONS: Include as follows: Ativan 2 mg IV q.6 hours, fluconazole 200 mg daily, DuoNeb inhaler 3 mL inhaler q.4 hours, lactulose 20 g p.o. q.i.d., Flagyl 400 mg q.8 hours, folic acid 1 mg daily, morphine sulfate 4 mg IV given q.6 hours p.r.n., norepinephrine IV and also Protonix 40 mg daily, methylprednisolone 40 mg IV q.8 hours, multivitamin, Tylenol, thiamine 100 mg daily and rifaximin 550 mg p.o. b.i.d. LABORATORY DATA: Include as follows: WBC 37.3, hemoglobin 10.5, hematocrit 36.7, platelets 91. ABG: pH is 6.91, pCO2 of 35, pO2 of 266, bicarb is 5.7, and saturation 100%. Vent setting, AC of 20, FiO2 of 100% and tidal volume 400, PEEP of 5. Sodium 139, potassium 6.1, chloride 111, CO2 of 7, anion gap 21, BUN 70, creatinine 2.7, glucose 116 and calcium is 8.4. As of 03/11/2017, urine osmolality 382, urine creatinine is 66.7, urine sodium is 12, urine potassium is 26.8. Blood culture as of 03/06/2017, positive for VRE. As of 03/08/2017, blood culture is positive for gram-positive cocci. Other laboratory data as of 03/11/2017 at 1633, lactic acid level is 11.2. I's and O's in last 24 hours, intake is 3012 and output 0. ASSESSMENT AND PLAN: In summary, Ms. Jules is a 51-year-old obese middle-aged female with a history of asthma, bronchitis, chronic obstructive pulmonary disease, ethyl alcohol abuse and hepatic encephalopathy, being treated for pneumonia, respiratory failure and also urinary tract infection vancomycin-resistant Enterococcus in the blood. Also, urine culture is positive for Escherichia coli and vancomycin-resistant Enterococcus with increased BUN and creatinine and low bicarbonate and high lactic acid. 1. Anuric acute renal failure. 2. Sepsis. 3. High anion gap metabolic acidosis and also respiratory acidosis. 4. Hyperkalemia. 5. Cirrhosis of the liver. 6. Respiratory failure. The patient is on pressors, hypotensive. Overall prognosis is extremely poor. I agree to treat medically for the hyperkalemia with D50, insulin, calcium gluconate, IV bicarb and Kayexalate. Now, patient is DNR. Overall prognosis is very poor. Thank you for allowing me to participate in your patient's care. Marino Reid MD
== END 2017-03-13 22:10 | DRG 581 ==
LOC: H.ER 22:16 → H.ERHOLD 02-28 00:45 → H.TEL 02-28 01:37 → H.ICU/CCU 03-02 18:03
PROVIDERS: ADMIT Internal Medicine; ATTEND Internal Medicine
PROC: 3E0F73Z Introduction of Anti-inflammatory into Respiratory Tract, Via Natural or Artificial Opening (ICD-10-PCS; 2017-02-28)
PROC: 5A1955Z Respiratory Ventilation, Greater than 96 Consecutive Hours (ICD-10-PCS; principal; 2017-03-02)
PROC: 0BH17EZ Insertion of Endotracheal Airway into Trachea, Via Natural or Artificial Opening (ICD-10-PCS; 2017-03-02)
PROC: 3E04329 Introduction of Other Anti-infective into Central Vein, Percutaneous Approach (ICD-10-PCS; 2017-03-07)
PROC: 02HV33Z Insertion of Infusion Device into Superior Vena Cava, Percutaneous Approach (ICD-10-PCS; 2017-03-07)
PROC: B518ZZA Fluoroscopy of Superior Vena Cava, Guidance (ICD-10-PCS; 2017-03-07)
PROC: B548ZZA Ultrasonography of Superior Vena Cava, Guidance (ICD-10-PCS; 2017-03-07)
PROC: 03HY32Z Insertion of Monitoring Device into Upper Artery, Percutaneous Approach (ICD-10-PCS; 2017-03-11)
DX: A41.81 Sepsis due to Enterococcus (principal); J15.5 Pneumonia due to Escherichia coli; J96.21 Acute and chronic respiratory failure with hypoxia; G92 Toxic encephalopathy; N17.9 Acute kidney failure, unspecified; J96.22 Acute and chronic respiratory failure with hypercapnia; N39.0 Urinary tract infection, site not specified; K70.31 Alcoholic cirrhosis of liver with ascites; E87.2 Acidosis; K76.6 Portal hypertension; J44.0 Chronic obstructive pulmonary disease with (acute) lower respiratory infection; D69.6 Thrombocytopenia, unspecified; D68.9 Coagulation defect, unspecified; I11.0 Hypertensive heart disease with heart failure; J44.1 Chronic obstructive pulmonary disease with (acute) exacerbation; I50.9 Heart failure, unspecified; E87.5 Hyperkalemia; K70.41 Alcoholic hepatic failure with coma; E66.01 Morbid (severe) obesity due to excess calories; R65.20 Severe sepsis without septic shock; Z16.21 Resistance to vancomycin; F10.20 Alcohol dependence, uncomplicated; G89.29 Other chronic pain; Z68.41 Body mass index [BMI] 40.0-44.9, adult; Z66 Do not resuscitate; Z91.19 Patient's noncompliance with other medical treatment and regimen; Z87.891 Personal history of nicotine dependence; Z87.01 Personal history of pneumonia (recurrent)